=== PATIENT | male | born 1980 | race Caucasian/White ===

== ENCOUNTER 2024-02-12 13:40 | Emergency (ER) | payer OTHER, SELFPAY ==
[2024-02-12 13:49] VITALS: BP 146/76; PULSE 99; RESP 12; TEMP 36.9; O2SAT 99
--- OUTSIDE RECORDS SUMMARY | 2024-02-12 14:13 | XMS_ITS | Encounter Summary ---
Author Organization [facility] [place] [address] Care Team Providers Care Regulatory Law Specialist Name Role Phone Adiel Mooney MD Primary Care Provider [phone] Reason for Visit * Reason Comments Medication Refill Encounter Details Date Type Department Care Team (Late st Contact Info) Description 12/15/2023 Refill [place] [id number] Camilla Nava MD [facility] [place] [address] Primary sclerosing cholangitis; Autoimmune hepatitis Social History Tobacco Use Types Packs/Day Years Used Date Smoking Tobacco: Never Smokeless Tobacco: Never Alcohol Use Standard Drinks/Week Comments No 0 (1 standard drink = 0.6 oz pur e alcohol) [facility] Utilities Answer Date Recorded In the past 12 months has [employer], [employer], oil, or water [employer] threatened to shut off services in your home? No 03/31/2023 Overall Financial Resource Strain (CARDIA) Answe r Date Recorded How hard is it for you to pa y for the very basics like food, housing, medical care, and heating? Not hard at all 03/31/2023 Exercise Vital Sign Answer Date Recorde d On average, how many days pe r week do you engage in moderate to strenuous exercise (like a brisk walk)? 1 day Minutes of Exercise per Session Not on file 03/31/2023 Hunger Vital Sign Answer Date Recorded Within the past 12 months, y ou worried that your food would run out before you got the money to buy more. Never true 03/31/20 23 Within the past 12 months, t he food you bought just didn't last and you didn't have money to get more. Never true 03/31/2023 PRAPARE - Transportation Answer Date Re corded In the past 12 months, has l ack of transportation kept you from medical appointments or from getting medications? No 10/2022 In the past 12 months, has l ack of transportation kept you from meetings, work, or from getting things needed for daily living? No 03/31/2023 Housing Stability Vital Sign Answer Rohit e Recorded In the last 12 months, was t here a time when you were not able to pay the mortgage or rent on time? No 03/31/2023 In the last 12 months, how many places have you lived? 1 03/31/2023 In the last 12 months, was t here a time when you did not have a steady place to sleep or slept in a [facility] (including now)? No 03/31/2023 Sex and Gender Information Value Date Recorded Sex Assigned at Male 03/31/2023 12:56 PM EST Gender Identity Male 03/31/2023 12:56 PM EST Sexual Orientation Straight 03/31/2023 12 :56 PM EST documented as of this encounter Plan of Treatment Upcoming Encounters Date Type Department Care Team (Late st Contact Info) Description 02/13/2024 1:00 PM EDT Clinical Support Primary Care at [address] [phone] 03/12/2024 8:50 AM [place] [address] Camilla Nava MD [facility] [place] [address] 03/20/2024 8:00 AM EST Office Visit Gastroenterology at [place] [phone] Camilla Nava MD [facility] [place] [address] documented as of this encounter Visit Diagnoses Diagnosis Primary sclerosing cholangitis Cholangitis Autoimmune hepatitis documented in this encounter Care Teams Regulatory Law Specialist Relationship Specialty Start Date End Date Adiel Mooney MD [facility] [place] [address] PCP - General General Internal Medicine 09/20/18 documented as of this encounter
--- OUTSIDE RECORDS SUMMARY | 2024-02-12 14:13 | XMS_ITS | Encounter Summary ---
Author Organization [facility] [place] [address] Care Team Providers Care Dancing Teacher Name Role Phone Adiel Mooney MD Primary Care Provider [phone] Reason for Visit * Auth/Cert (Routine) Specialty Diagnoses / Procedures Referred By Contac t Referred To Contact Diagnoses Encounter for screening for malignant neoplasm of colon chromo colonoscopy-high risk per Dr Dowling Procedures PRO COLONOSCOPY, DIAGNOSTIC PRO COLONOSCOPY, BIOPSY PRO COLONOSCOPY, REMV LESN, SNARE COLONOSCOPY, DIAGNOSTIC (WRVU 3.26) Yumi Grant MD [facility] [place] [address] [facility] Referral ID Status Reason Start Date Expiration Date Visits Re quested Visits Authorized [id number] 1 1 Encounter Details Date Type Department Care Team (Late st Contact Info) Description 12/06/2023 1:00 PM EDT - 12/06/2023 2:00 PM EDT [place] [address] Yumi Grant MD [facility] [place] [place] [address] COLONOSCOPY, POLYPECTOMY, REMOVAL LESION BY SNARE (WRVU 4.57) Social History Tobacco Use Types Packs/Day Years Used Date Smoking Tobacco: Never Smokeless Tobacco: Never Alcohol Use Standard Drinks/Week Comments No 0 (1 standard drink = 0.6 oz pur e alcohol) [facility] Utilities Answer Date Recorded In the past 12 months has th e electric, gas, oil, or water company threatened to shut off services in your [...] place to sleep or slept in a [place] facility (including now)? No 03/31/2023 Sex and Gender Information Value Date Recorded Sex Assigned at Male 03/31/2023 12:56 PM EST Gender Identity Male 03/31/2023 12:56 PM EST Sexual Orientation Straight 03/31/2023 12 :56 PM EST documented as of this encounter Last Filed Vital Signs Vital Sign Reading Time Taken Comments Blood Pressure 117/77 12/06/2023 2:00 PM EDT Pulse 66 12/06/2023 2:00 PM EDT Temperature 36.7 ??C (98.1 ??F) 12/06/2023 12:32 PM E DT Respiratory Rate 11 12/06/2023 2:00 PM EDT Oxygen Saturation 98% 12/06/2023 2:00 PM EDT Inhaled Oxygen Concentration - - Weight 86.2 kg (190 lb) 12/06/2023 12:32 PM EDT Height - - Body Mass Index 25.71 03/31/2023 12:56 PM EST documented in this encounter Discharge Instructions * Discharge Instructions* Fide Zacarias RN - 12/06/2023 2:12 PM EDT Colonoscopy: What to Expect at Home Your Recovery Your doctor will talk to you about when you will need your next colonoscopy. Your doctor can help you decide how often you need to be checked. This will depend on the results of your test and your risk for colorectal cancer. After the test, you may be bloated or have gas pains. You may need to pass gas. If a biopsy was done or a polyp was removed, you may have streaks of blood in your stool (feces) for a few days. Problems such as heavy rectal bleeding may not occur until several weeks after the test. This isn't common. But it can happen after polyps are removed. This care sheet gives you a general idea about how long it will take for you to recover. But each person recovers at a different pace. Follow the steps below to get better as quickly as possible. How can you care for yourself at home? Activity Rest when you feel tired. You can do your normal activities when it feels okay to do so. Diet Follow your doctor's directions for eating. Unless your doctor has told you not to, drink plenty of fluids. This helps to replace the fluids that were lost during the colon prep. Do not drink alcohol. Medicines Your doctor will tell you if and when you can restart your medicines. He or she will also give you instructions about taking any new medicines. If you take blood thinners, such as warfarin (Coumadin), clopidogrel (Plavix), or aspirin, be sure to talk to your doctor. He or she will tell you if and when to start taking those medicines again. Make sure that you understand exactly what your doctor wants you to do. If polyps were removed or a biopsy was done during the test, your doctor may tell you not to take aspirin or other anti-inflammatory medicines for a few days. These include ibuprofen (Advil, Motrin) and naproxen (Aleve). Other instructions For your safety, do not drive or operate machinery until the medicine wears off and you can think clearly. Your doctor may tell you not to drive or operate machinery until the day after your test. Do not sign legal documents or make major decisions until the medicine wears off and you can think clearly. The anesthesia can make it hard for you to fully understand what you are agreeing to. Additional Information for Sedation Patients For patients who received sedation: You may have received medications before and/or during your procedure which effects your judgement and reaction time. Do not drive, operate machinery, drink alcoholic beverages or make important decisions for 24 hours. Be careful on stairs as you may be unsteady on your feet. You may eat a regular diet as tolerated. Do not smoke if you are alone. IV site: Slight redness or tenderness is normal, you can use a warm compress if you would like. If tenderness and/or redness increase or if foul drainage occurs, please contact your Doctor. Please call [phone] before 8pm Mon-Fri with problems, questions or concerns. If you call after 8pm or on weekends, call the Hospital at [phone] and ask to speak to the Field Crop Farm Worker supervisor irrigation and the embossing press operator apprentice will contact that person for you. When should you call for help? Call [phone] anytime you think you may need emergency care. For example, call if: You passed out (lost consciousness). You pass maroon or bloody stools. You have trouble breathing. Call your doctor now or seek immediate medical care if: You have pain that does not get better after you take pain medicine. You are sick to your stomach or cannot drink fluids. You have new or worse belly pain. You have blood in your stools. You have a fever. You cannot pass stools or gas. Watch closely for changes in your health, and be sure to contact your doctor if you have any problems. Where can you learn more? [facility] View your After Visit Summary and more online at [email or web address] If you would like to provide feedback about your hospital experience, please call the Office of Patient and Family Relations at . If you have received this After Visit Summary in error, please immediately return it in person to the department, or notify the [facility] Privacy Office by calling toll free at between the hours of 8AM and 5PM to arrange for our retrieval of the documents at no cost to you. Content Version: 12.2 ?? [id number] [employer]. Care instructions adapted under license by [facility]. If you have questions about a medical condition or this instruction, always ask your healthcare professional. [employer] disclaims any warranty or liability for your use of this information. documented in this encounter Medications at Time of Discharge Medication Sig Dispensed Refills Start Date End Date folic acid (Vitamin B9) 1 mg tabletIndications:Ulcer ative colitis without complications, unspecified location TAKE 1 TABLET BY MOUTH EVERY DAY 90 tablet 3 07/27/2023 mesalamine (Shaila) 1.[address] tabletIndications:Ulcer ative colitis without complications, unspecified location TAKE 2 TABLETS BY MOUTH EVERY DAY 180 tablet 3 07/27/2023 calcium carbonate/vitamin D3 (CALCIUM 600 WITH VITAMIN D3 ORAL) Take 2 tablets by mouth daily. 1200 calcium and 50mcg D3 daily ondansetron (Zofran) 4 mg Tablet Take 1 tablet by mouth every 8 hours as needed for Nausea. 10 tablet 03/04/2020 azaTHIOprine (Imuran) 50 mg tabletIndications:Autoi mmune hepatitis TAKE 2 TABLETS BY MOUTH EVERY DAY 180 tablet 1 06/20/2023 12/15/2023 ursodioL (Yoli 250) 250 mg tabletIndications:Prima ry sclerosing cholangitis TAKE 2 TABLETS 2 TIMES A DAY BY MOUTH 360 tablet 1 06/20/2023 12/15/2023 documented as of this encounter Progress Notes * Fide Zacarias RN - 12/06/2023 2:46 PM EDT Patient alert and oriented, vital signs stable. Reviewed discharge instructions; patient and verbalized understanding. Copy of instruction sheet with contact numbers for questions/concerns. Painassessment documented. Patient escorted out of department via wheelchair with this RN. * Pina Dawn RN - 11/22/2023 9:14 AM EDT TC with patient to review pre-procedure prep, allergies, medications, and answer pre-procedure questions. Pt is scheduled for a Colonoscopy with IVCS on Dec 05 at 1 PM (arrival time: 12 PM) with Dr. Grant. Chart reviewed: Past Medical History: Cardiac History: N/A Diabetic History N/A CHING : N/A COPD/severe asthma: N/A Any concerns with the ability to lie flat with or without breathing difficulty: No Home Oxygen: No Psychological: N/A Co-morbidities: UC, PSC, liver disease AIH Current height and weight: 6'09 194 lb 3.2 oz BMI: 26.27 BMI > 40 [] IV Drug Abuse: No Alcohol drinks/week: Pt doesn't drink Recommend IVCS or Anesthesia: IVCS Review med instructions for procedure: Yes Anesthesia education: Yes If the patient is unable to self-consent, plan of action: Name of the person who can consent Phone number if person not present on the day of the procedure documented in this encounter H&P Notes * Yumi Grant MD - 12/06/2023 1:08 PM EDT Gastroenterology and Hepatology Pre-Procedure History and Physical Exam Procedure: Colonoscopy: Indication: PSC/AIH and UC - history of focal nodular dysplasia at hep flex 2022 Patient Active Problem List Diagnosis Code Hepatitis, autoimmune K75.4 Ulcerative colitis K51.90 Healthcare maintenance Z00.00 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 ASA 2 - Patient with mild systemic disease with no functional limitations Sedation Plan: moderate (conscious sedation) Risks and benefits of the procedure explained to the patient. Consent signed. documented in this encounter Plan of Treatment Upcoming Encounters Date Type Department Care Team (Late st Contact Info) Description 02/13/2024 1:00 PM EDT Clinical Support Primary Care at [address] [address] 03/12/2024 8:50 AM [place] [address] Camilla Nava MD [facility] [address] 03/20/2024 8:00 AM EST Office [place] [phone] Camilla Nava MD [facility] [address] documented as of this encounter Procedures Procedure Name Priority Date/Time Associated Diagnosis Comments SURGICAL PATHOLOGY Routine 12/06/2023 1: 44 PM EDT Colonoscopy, Remv Lesn, Snare ([id number]) 12/06/2023 1:18 PM EDT chromo colonoscopy-high risk per Dr Dowling COLONOSCOPY Routine 12/06/2023 12:34 PM EDT documented in this encounter Results * Surgical Pathology (12/06/2023 1:44 PM EDT) Case Report Surgical Pathology Report ? Case: [id number] ? Authorizing Provider: ??Yumi Grant MD ? Collected: ? 12/06/2023 1344 ? Ordering Location: ? [place] [facility] [place] Received: ?12/06/2023 1607 ? Pathologist: ? Sienna Silva MD ? Specimens: ?? A) - Colon, Ascending, Polyps Ascending colon 6 mm, 6 mm ? B) - Colon, Hepatic Flexure, polyp hepatic flexure 15 mm ? C) - Colon, Rectosigmoid, targeted rectosigmoid ? 12/08/2023 12:50 PM EDT [facility] Final Diagnosis A. Colon, Ascending, Polyps Ascending colon 6 mm, 6 mm Polypectomy/Polype ctomies: Fragments of sessile serrated polyp/adenoma. B. Colon, Hepatic Flexure, polyp hepatic flexure 15 mm Polypectomy/Polype ctomies: Fragments of sessile serrated polyp/adenoma. C. Colon, Rectosigmoid, targeted rectosigmoid Biopsy: Hyperplastic polyp. CR-PX 12/08/2023 12:50 PM EDT [facility] Clinical Information A. Colon, Ascending, Polyps Ascending colon 6 mm, 6 mm Polyp B. Colon, Hepatic Flexure, polyp hepatic flexure 15 mm Polyp C. Colon, Rectosigmoid, targeted rectosigmoid Rule out dysplasia 12/08/2023 12:50 PM EDT [facility] Gross Description A. Colon, Ascending, Polyps Ascending colon 6 mm, 6 mm. Labeled/Fixative: Polyps descending colon 6 mm, formalin. Quantity/Size: Two, 0.4 and 0.5 cm. Tissue Description: Soft, swenson-pink tissues. Sections/Processin g: Submitted in toto in 1 cassette labeled A1. B. Colon, Hepatic Flexure, polyp hepatic flexure 15 mm. Labeled/Fixative: Polyp hepatic flexure 15 mm, formalin. Quantity/Size: Five, ranging from 0.2 to 1.4 cm. Tissue Description: Soft, swenson-pink tissues. Sections/Processin g: Submitted in toto in 1 cassette labeled B1. C. Colon, Rectosigmoid, targeted rectosigmoid. Labeled/Fixative: Targeted rectosigmoid, formalin. Quantity/Size: Single, 0.3 cm. Tissue Description: Soft, swenson-pink tissue. Sections/Processin g: Submitted in toto in 1 cassette labeled C1. 12/08/2023 12:50 PM EDT [facility] Result Note Routine 12/08/2023 12:50 PM [facility] Tissue ASCENDING COLON STRUCTURE / Unknown 12/06/2023 1:44 PM EDT 12/06/2023 4:07 PM EDT Comment:Pre-op diagnosis: chromo colonoscopy-high risk per Dr Dowling Tissue specimen (specimen) (Colon, Hepatic Flexure) 12/06/2023 1:51 PM EDT 12/06/2023 4:07 PM EDT Comment:Pre-op diagnosis: chromo colonoscopy-high risk per Dr Dowling Tissue specimen (specimen) RECTOSIGMOID STRUCTURE / Unknown 12/06/2023 2:07 PM EDT 12/06/2023 4:07 PM EDT Comment:Pre-op diagnosis: chromo colonoscopy-high risk per Dr Dowling L Rodney Grant MD PATHOLOGY/CYTOLOGY Beatris WATERS [facility] [place] [address] * COLONOSCOPY (12/06/2023 12:34 PM EDT) COLONOSCOPY [facility] Endoscopy ___ Procedure Date: 12/06/2023 12:34 PM ? Patient Name: Mahamed Dale ? [facility]: [id number] ? Date of : 1980 ? Age: 43 ? Order #: [id number] ? Instrument Name: [id number] ? ___ Procedure: ? Colonoscopy Indications: ? High risk colon cancer ? 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 Focal ? polypoid low grade dysplasia ? removed on last exam 2022 Patient Profile: ? This is a 43 year old male. 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 is taking azathioprine and ? mesalamine and is asymptomatic. Providers: ? Jenny Grant MD, Angel Redman ? , TAHMINA, Kam Yanes MD: ?Adiel Mooney MD Medicines: ? Midazolam 6 mg IV, Fentanyl 250 ? micrograms IV, Ondansetron 4 mg IV Complications: ? No immediate complications. ___ Procedure: ? Pre-Anesthesia Assessment: ? - Prior to the procedure, a History ? and Physical was performed, and ? patient medications and allergies ? were reviewed. The patient is ? competent. The risks and benefits ? of the procedure and the sedation ? options and risks were discussed ? with the patient. All questions ? were answered and informed consent ? was obtained. Patient ? identification and proposed ? procedure were verified by the ? physician in the pre-procedure area ? in the endoscopy suite. Mental ? Status Examination: alert and ? oriented. Airway Examination: ? normal oropharyngeal airway and ? neck mobility. Respiratory ? Examination: clear to auscultation. ? CV Examination: normal. ASA Grade ? Assessment: I - A normal, healthy ? patient. After reviewing the risks ? and benefits, the patient was ? deemed in satisfactory condition to ? undergo the procedure. The ? anesthesia plan was to use moderate ? sedation / analgesia (conscious ? sedation). Immediately prior to ? administration of medications, the ? patient was re-assessed for ? adequacy to receive sedatives. The ? heart rate, respiratory rate, ? oxygen saturations, blood pressure, ? adequacy of pulmonary ventilation, ? and response to care were monitored ? throughout the procedure. The ? physical status of the patient was ? re-assessed after the procedure. ? The procedure, indications, ? benefits, risks and alternatives ? were explained to the patient. ? Specifically discussed were ? potential complications including, ? but not limited to, bleeding, ? perforation, infection, missing a ? cancer, and adverse medication ? reactions. The patient was placed ? in the left lateral decubitus ? position, and a digital rectal exam ? was performed. The Colonoscope was ? inserted in the anus and under ? direct visualization, advanced to ? the terminal ileum, with ? identification of the appendiceal ? orifice and IC valve. Careful ? inspection was made as the ? colonoscope was withdrawn. The ? colonoscopy was performed without ? difficulty. The patient tolerated ? the procedure well. The quality of ? the bowel preparation was evaluated ? using the BBPS ([place] Bowel ? Preparation Scale) with scores of: ? Right Colon = 3 (entire mucosa seen ? well with no residual staining, ? small fragments of stool or opaque ? liquid), Transverse Colon = 3 ? (entire mucosa seen well with no ? residual staining, small fragments ? of stool or opaque liquid) and Left ? Colon = 3 (entire mucosa seen well ? with no residual staining, small ? fragments of stool or opaque ? liquid). The total BBPS score ? equals 9. The quality of the bowel ? preparation was excellent. Scope ? withdrawal time was 21 minutes. ? Findings: ? The perianal and digital rectal examinations were ? normal. ? The terminal ileum appeared normal. ? Entire colon examined carefully with light ? chromoendoscopy using BLI and also with high ? definition white light. There were no signs of active ? colitis throughout. ? Two flat polyps were found in the ascending colon. ? The polyps were 6 mm in size with a mucoid cap ? typical of a sessile serrated adenoma. These polyps ? were removed completely with a cold snare. Resection ? and retrieval were complete. ? A 15 mm polyp was found in the hepatic flexure. The ? polyp was flat also with a mucoid cap and ? well-defined borders. The polyp was removed with a ? cold snare. Resection and retrieval were complete. ? A 4 mm polyp was found in the recto-sigmoid colon. ? The polyp was sessile with a type 2 pit pattern, ? typical a hyperplastic polyp. Directed biopsies were ? taken with a cold forceps for histology. ? Moderate Sedation: ? Not applicable - See Anesthesia documentation Impression: ?- Ulcerative colitis in remission ? - The examined portion of the ileum ? was normal ? - Two well-demarcated 6 mm polyps ? in the ascending colon and a 15 mm ? polyp at the hepatic flexure, ? removed with a cold snare. Resected ? and retrieved completely. ? - One 4 mm polyp at the ? recto-sigmoid colon. Likely a ? hyperplastic polyp. Biopsied. Recommendation: ?- Await pathology results. ? - Anticipate another exam in 1 year. ? - Follow-up in IBD Clinic. ? Attending Participation: ? I personally performed the entire procedure. ? _ L. Rodney Grant MD 12/06/2023 2:11:44 PM Number of Addenda: 0 Note Initiated On: 12/06/2023 12:34 PM [employer]OVATION 12/06/2023 12:3 4 PM EDT Adiel Mooney MD GENERAL SURGICAL ORD ERABLES [employer]ATION documented in this encounter Visit Diagnoses Not on filedocumented in this encounter Administered Medications Inactive Administered Medications - up to 3 most recent administrations Medication Order MAR Action Action Date Dose Rate Site fentaNYL (pf) (50 mcg/mL) multi-dose injection PRN, Starting on Tue12/06/23 at 1318, Until Tue12/06/23 at 1655, Intra-Operative (Intra-Procedure), Routine Given 12/06/2023 1:30 PM EDT 50 mcg Given 12/06/2023 1:27 PM EDT 50 mcg Given 12/06/2023 1:24 PM EDT 50 mcg lactated ringers infusion 100 mL/hr, Intravenous, CONTINUOUS, Starting on Tue12/06/23 at 1245, Until Tue12/06/23 at 1446, Day of Surgery (Day of Procedure) New Bag 12/06/2023 12:47 PM EDT 100 mL/hr 100 mL/hr midazolam (pf) (Versed) (1 mg/mL) multi-dose injection PRN, Starting on Tue12/06/23 at 1318, Until Tue12/06/23 at 1655, Intra-Operative (Intra-Procedure), Routine Given 12/06/2023 1:30 PM EDT 1 mg Given 12/06/2023 1:27 PM EDT 1 mg Given 12/06/2023 1:24 PM EDT 1 mg ondansetron (pf) (Zofran) (2 mg/mL) injection 4 mg 4 mg, Intravenous, ONCE, 1 dose, On Tue12/06/23 at 1345, Endoscopy (Intra-Procedure) Given 12/06/2023 1:20 PM EDT 4 mg documented in this encounter Active and Recently Administered Medications Times are shown in EDT. Scheduled Medication Order 12/04/2023 12/05/2023 12/06/2023 ondansetron (pf) (Zofran) (2 mg/mL) injection 4 mg (COMPLETED) 4 mg, Intravenous, ONCE, 1 dose, On Tue12/06/23 at 1345, Endoscopy (Intra-Procedure) 1320 (Given - Provid er: Angel Romeo RN)1345 (Due) Continuous Medication Order 12/04/2023 12/05/2023 12/06/2023 lactated ringers infusion (CANCELED) 100 mL/hr, Intravenous, CONTINUOUS, Starting on Tue12/06/23 at 1245, Until Tue12/06/23 at 1446, Day of Surgery (Day of Procedure) 1247 (New Bag - Prov ider: Jamaica Singleton RN) PRN Medication Order 12/04/2023 12/05/2023 12/06/2023 fentaNYL (pf) (50 mcg/mL) multi-dose injection (CANCELED) PRN, Starting on Tue12/06/23 at 1318, Until Tue12/06/23 at 1655, Intra-Operative (Intra-Procedure), Routine 1318 (Given - Provid er: Angel Romeo RN)1321 (Given - Provider: Angel R Romeo, RN)1324 (Given - Provider: Angel Romeo RN)1327 (Given - Provider: Angel Romeo RN)1330 (Given - Provider: Angel Romoe RN) midazolam (pf) (Versed) (1 mg/mL) multi-dose injection (CANCELED) PRN, Starting on Tue12/06/23 at 1318, Until Tue12/06/23 at 1655, Intra-Operative (Intra-Procedure), Routine 1318 (Given - Provid er: Angel Romeo RN)1321 (Given - Provider: Angel Romeo RN)1324 (Given - Provider: Angel Romeo RN)1327 (Given - Provider: Angel Romeo RN)1330 (Given - Provider: Angel Romeo RN) documented in this encounter Care Teams Dancing Teacher Relationship Specialty Start Date End Date Adiel Mooney MD [facility] [place] [address] PCP - General General Internal Medicine 09/20/18 documented as of this encounter
--- OUTSIDE RECORDS SUMMARY | 2024-02-12 14:13 | XMS_ITS | Encounter Summary ---
Author Organization [facility] [place] [address] Care Team Providers Care Sales Effectiveness Manager Name Role Phone Adiel Mooney MD Primary Care Provider [phone] Encounter Details Date Type Department Care Team (Latest Contact Info) Description 01/12/2024 Travel Social History Tobacco Use Types Packs/Day Years Used Date Smoking Tobacco: Never Smokeless Tobacco: Never Alcohol Use Standard Drinks/Week Comments No 0 (1 standard drink = 0.6 oz pur e alcohol) [facility] Utilities Answer Date Recorded In the past 12 months has e electric, gas, oil, or water company [...] place to sleep or slept in a assisted (including now)? No 03/31/2023 Sex and Gender Information Value Date Recorded Sex Assigned at Male 03/31/2023 12:56 PM EST Gender Identity Male 03/31/2023 12:56 PM EST Sexual Orientation Straight 03/31/2023 12 :56 PM EST documented as of this encounter Plan of Treatment Upcoming Encounters Date Type Department Care Team (Late st Contact Info) Description 02/13/2024 1:00 PM EDT Clinical Support Primary Care at [address] [address] 03/12/2024 8:50 AM EST Appointment MRI at [place] [id number] Camilla Nava MD [facility] [place] [address] 03/20/2024 8:00 AM EST Office Visit [place] [phone] Camilla Nava MD [facility] [place] [address] documented as of this encounter Visit Diagnoses Not on filedocumented in this encounter Care Teams Sales Effectiveness Manager Relationship Specialty Start Date End Date Adiel Mooney MD [facility] [place] [address] PCP - General General Internal Medicine 09/20/18 documented as of this encounter
--- OUTSIDE RECORDS SUMMARY | 2024-02-12 14:13 | XMS_ITS | Encounter Summary ---
Author Organization [facility] [place] [address] Care Team Providers Care Feather Trimmer Name Role Phone Adiel Mooney MD Primary Care Provider [phone] Encounter Details Date Type Department Care Team (Late st Contact Info) Description 01/12/2024 10:45 AM EDT Office Visit Dermatology at [facility] [address] [place] [address] Ollie Velasquez MD [facility] [address] [place] [address] [place] (actinic keratosis); Skin tag; Multiple benign nevi; Jimenez angioma; Lentigines Social History Tobacco Use Types Packs/Day Years Used Date Smoking Tobacco: Never Smokeless Tobacco: Never Alcohol Use Standard Drinks/Week Comments No 0 (1 standard drink = 0.6 oz pur e alcohol) [facility] Utilities Answer Date Recorded In the past 12 months has [employer], gas, oil, or water [employer] threatened to shut off services in your [...] place to sleep or slept in a chcf (including now)? No 03/31/2023 Sex and Gender Information Value Date Recorded Sex Assigned at Male 03/31/2023 12:56 PM EST Gender Identity Male 03/31/2023 12:56 PM EST Sexual Orientation Straight 03/31/2023 12 :56 PM EST documented as of this encounter Progress Notes * Lory Briseno, [facility] - 01/12/2024 10:45 AM EDT Images from the original note were not included. DEPARTMENT OF DERMATOLOGY Medical Dermatology Clinic Provider: Ollie Velasquez MD Patient's preferred name Mahamed Preferred contact method for results []Phone [x]myD-H []Letter Detailed phone message OK? Yes Are there any other people with whom we may discuss your care? 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 Patient returns to clinic today for full skin exam. Patient reports: no concerns for today's full skin exam Last visit at Dermatology: 08/12/2022 Last visit with this provider: 08/12/2022 Medications: Reviewed in eD-H Allergies: Reviewed in eD-H Skin Examination: Full skin examination: Patient asked to undress to their comfort level. Verbalized that the provider's preference is that patient remove all clothing and that the provider will not examine areas patient elects to keep covered. Examination of the scalp, hair, head, face, ears, neck, chest, axillae, abdomen, back, buttocks, genitalia, and upper and lower extremities was normal with the exception ofthe findings below. Assessment/Plan: #. Actinic Keratoses - Ill-defined gritty papules on the left sabianism x1. - Explained premalignant potential of these lesions. - Discussed treatment with cryotherapy. Patient elects to proceed with cryotherapy today. - Instructed patient to return to clinic for re-evaluation if lesion(s) does not resolve as expected with this treatment. Procedure: Destruction of lesion(s) with cryotherapy (LN2). Location(s): As noted above. Number: 1 Discussed procedure and expectations, including risks and benefits. Verbal consent obtained. Treated with LN2. There were no complications; Patient tolerated the procedure well. Post-procedure expectations and wound care reviewed. #. Skin Tag - Sessile, flesh-colored papule on the posterior neck. - Discussed benign nature of lesion and provided reassurance. No treatment necessary at this time. #. Benign Nevi - Scattered medium brown, evenly pigmented macules and papules on the trunk and extremities with reassuring pigment pattern on dermoscopy. - Discussed benign nature of lesions and provided reassurance. Will continue to monitor. #. Jimenez Angiomas - Multiple bright red, well-demarcated papules on the trunk and extremities. - Discussed benign nature of lesions and provided reassurance. No treatment necessary at this time. #. Lentigines - Scattered light-brown, evenly pigmented, well-demarcated macules on sun-exposed areas of the trunk and extremities. - No worrisome pigmented lesions. Discussed benign nature of lesions and provided reassurance. Willcontinue to monitor. Other: Sun protection discussed (protective clothing and SPF30+ broad-spectrum sunscreen) RTC: 1 year full skin exam / sooner as needed []Note routed to special education secretary [x]Recall placed in scheduling system []Appointment scheduled at checkout Scribe attestation: ABI Strong has performed the documentation for this encounter in the presence of and acting as a scribe for Ollie Velasquez MD. I performed the above scribed service and agree with the accuracy of the documentation in this encounter. Reviewed and signed by: Ollie Velasquez MD Dermatology [facility] documented in this encounter Plan of Treatment Upcoming Encounters Date Type Department Care Team (Late st Contact Info) Description 02/13/2024 1:00 PM EDT Clinical Support Primary Care at [address] [address] 03/12/2024 8:50 [place] [address] Camilla Nava MD [facility] [place] [address] 03/20/2024 8:00 AM EST [place] [phone] Camilla Nava MD [facility] [place] [address] documented as of this encounter Visit Diagnoses Diagnosis AK (actinic keratosis) Actinic keratosis Skin tag Unspecified hypertrophic and atrophic condition of skin Multiple benign nevi Benign neoplasm of skin, site unspecified Jimenez angioma Nevus, non-neoplastic Lentigines Other dyschromia documented in this encounter Care Teams Feather Trimmer Relationship Specialty Start Date End Date Adiel Mooney MD [facility] [place] [address] PCP - General General Internal Medicine 09/20/18 documented as of this encounter
--- OUTSIDE RECORDS SUMMARY | 2024-02-12 14:13 | XMS_ITS | Clinical Summary ---
Author Organization [facility] [place] [address] Care Team Providers Care Gold Letterer Name Role Phone Adiel Mooney MD Primary Care Provider Allergies Active Allergy Reactions Criticality Noted Date Comments Hymenoptera Allergenic Extract Angioedema High 03/14/2015 Generalized swelling in chest and neck. Never any wheese, sob or throat symtpoms. Mefloquine Rash Low 03/14/2015 Rash occurred while taking sulfa medication and Mefloquine. Unaware of which gave him a reaction. Sulfa (Sulfonamide Antibiotics) Rash Low Medications Medication Sig Dispensed Refills Start Date End Date Status ondansetron (Zofran) 4 mg Tablet Take 1 tablet by mouth every 8 hours as needed for Nausea. 10 tablet 03/04/2020 Active calcium carbonate/vitamin D3 (CALCIUM 600 WITH VITAMIN D3 ORAL) Take 2 tablets by mouth daily. 1200 calcium and 50mcg D3 daily Active folic acid (Vitamin B9) 1 mg tabletIndications:Ulc erative colitis without complications, unspecified location TAKE 1 TABLET BY MOUTH EVERY DAY 90 tablet 3 07/27/2023 Active mesalamine (Shaila) 1.2 gram tabletIndications:Ulc erative colitis without complications, unspecified location TAKE 2 TABLETS BY MOUTH EVERY DAY 180 tablet 3 07/27/2023 Active ursodioL (Yoli 250) 250 mg tabletIndications:Alyssa barbie sclerosing cholangitis TAKE 2 TABLETS BY MOUTH TWICE DAILY 360 tablet 3 12/15/2023 Active azaTHIOprine (Imuran) 50 mg tabletIndications:Aut oimmune hepatitis TAKE 2 TABLETS BY MOUTH EVERY DAY 180 tablet 3 12/15/2023 Active Active Problems Problem Noted Date Diagnosed Date PSC (primary sclerosing cholangitis) 01/17/2019 Healthcare maintenance 09/11/2014 Hepatitis, autoimmune Overview (09/11/2014): Diagnosed in 2001 based on LFTs elevated Ulcerative colitis Overview (09/11/2014): Diagnosed in 1996; On AZT and mesalamine No significant flare-ups since 2000 Encounters Date Type Department Care Team Description 01/12/2024 10:45 AM EDT Office Visit Dermatology at [facility] [address] [place] [address] Ollie Velasquez MD AK (actinic keratosis); Skin tag; Multiple benign nevi; Jimenez angioma; Lentigines 01/12/2024 Travel 12/15/2023 [place] [address] Camilla Nava MD Primary sclerosing cholangitis; Autoimmune hepatitis 12/06/2023 1:00 PM EDT - 12/06/2023 2:00 PM EDT [place] [phone] Yumi Grant MD COLONOSCOPY, POLYPECTOMY, REMOVAL LESION BY SNARE (WRVU 4.57) 12/06/2023 11:59 AM EDT - 12/06/2023 2:54 PM EDT Hospital En[place] [address] Yumi Grant MD Discharge Disposition: Home from Last 3 Months Immunizations Name Administration Dates Next Due Covid-19 Bivalent (Pfizer Co mirnaty) 12yrs+ (0698-7554) 03/17/2022 Covid-19 Monovalent (Moderna Spikevax) 12yrs+ (3989-5201) 02/23/2023,10/08/2021,05/19/2021,12/11,07/31/2020,07/03/2020 Hepatitis B, Unspecified Formulation 02/19/1998, 12/11/1997,10/23/1997 Influenza (Novel [id number]) Injectable 04/06/2009 Influenza PF, Split 01/26/2016, 5,01/27/2015,01/23,03/02/2012 Influenza Quadrivalent, Pres ervative Free 01/21/2023,01/22/2022,01/19/2021,01/20,01/15/2019,03/02/2018,01/24/2017 Influenza Vaccine, Whole 03/14/2014,02/16/2010,1 MMR Vaccine LIVE 12/24/1990,09/23/1980 Menomune MPSV4 (Menomune) 01/23/1999 Pneumococcal 13-Valent Conju gate (Prevnar 13) 09/11/2014 Pneumococcal 23-Valent Polys accharide (Pneumovax 23) 02/05/2020,03/14/2015 Td Adult (Decavac, Tenivac) 03/09/2022 Td Adult (not absorbed) 12/24/2001 Tdap (Adacel, Boostrix) 05/01/2012 Typhoid, VICP 03/14/2015 Family History Medical History Relation Comments Pacemaker Father Parkinsonism Father Inflammatory Bowel Disease Maternal Grandfather Rheumatoid Arthritis Maternal Grandmother Heart Failure Paternal Grandfather Lung Cancer Paternal Grandmother Relation Status Comments Father Alive Maternal Grandfather Maternal Grandmother Mother Alive Paternal Grandfather Paternal Grandmother Social History Tobacco Use Types Packs/Day Years Used Date Smoking Tobacco: Never Smokeless Tobacco: Never Alcohol Use Standard Drinks/Week Comments No 0 (1 standard drink = 0.6 oz pur e alcohol) [facility] Utilities Answer Date Recorded In the past 12 months has [employer], gas, oil, or water [email or web address] threatened to shut off services in your [...] place to sleep or slept in a snf (including now)? No 03/31/2023 Sex and Gender Information Value Date Recorded Sex Assigned at Male 03/31/2023 12:56 PM EST Gender Identity Male 03/31/2023 12:56 PM EST Sexual Orientation Straight 03/31/2023 12 :56 PM EST Last Filed Vital Signs Vital Sign Reading Time Taken Comments Blood Pressure 112/70 12/06/2023 2:40 PM EDT Pulse 76 12/06/2023 2:09 PM EDT Temperature 36.7 ??C (98.1 ??F) 12/06/2023 12:32 PM E DT Respiratory Rate 16 12/06/2023 2:40 PM EDT Oxygen Saturation 95% 12/06/2023 2:40 PM EDT Inhaled Oxygen Concentration - - Weight 86.2 kg (190 lb) 12/06/2023 12:32 PM EDT Height 183.1 cm (6' 0.09) 03/31/2023 12:[address] Body Mass Index 25.71 03/31/2023 12:56 PM EST Plan of Treatment Upcoming Encounters Date Type Department Care Team (Late st Contact Info) Description 02/13/2024 1:00 PM EDT Clinical Support Primary Care at [address] [address] 03/12/2024 8:50 AM [place] [address] Camilla Nava MD [facility] [place] [address] 03/20/2024 8:00 AM EST Office [place] [address] Camilla Nava MD [facility] [place] [address] Health Maintenance Due Date Last Done Comments CT Colonography 1979 FIT DNA 1979 FIT 1980 Sigmoidoscopy 1980 Covid-19 Vaccine (2022-05 4 season) 2023 02/23/2023, 03/17/2022, 10/08/2021, Additional history exists Influenza (Flu) vaccine (1 o f 1 - Influenza standard series) 12/25/2023 01/21/2023, 01/22/2022, 01/19/2021, Additional history exists Colonoscopy 12/05/2024 12/06/2023, 11/23, 10/14/2022, Additional history exists Colorectal Cancer Screening 12/05/2024 Lipid Screening 03/09/2026 03/09/2021, 07/25 (Outside per patient (enter details in comments)), 07/25/2015 Diabetes Screening (HgbA1C o r Glucose) 09/01/2026 09/02/2023, 03/11/2023, 10/08/2022, Additional history exists Tetanus/Diphtheria/Pertussis Vaccines (3 - Td or Tdap) 03/09/2032 03/09/2022, 05/01/2012, 12/24/2001 Sigmoidoscopy (10 year) with FIT yearly 12/05/2033 12/06/2023, 12/06/2023, 10/14/2022, Additional history exists Hepatitis B vaccine (0-59 yrs) Completed 1 , 12/11/1997, 10/23/1997 HIV screen Completed 01/19/2019 Hepatitis C Screening Completed 02/26/2020 Procedures Procedure Name Priority Date/Time Associated Diagnosis Comments SURGICAL PATHOLOGY Routine 12/06/2023 1: 44 PM EDT Colonoscopy, Remv Kirk Schulz ([id number]) 12/06/2023 1:18 PM EDT chromo colonoscopy-high risk per Dr Dowling COLONOSCOPY Routine 12/06/2023 12:34 PM EDT COMPREHENSIVE METABOLIC PANEL Routine 09/02/2023 5:53 PM EDT Primary sclerosing cholangitis HC VENIPUNCTURE Routine 03/09/2021 8:45 AM EST Healthcare maintenance HC HEPATITIS C ANTIBODY Routine 02/26/2020 9:27 AM EST Healthcare maintenance HC VENIPUNCTURE Routine 01/19/2019 5:04 PM EDT Healthcare maintenance from Last 3 Months or Most Recently Relevant to Health Maintenance Results * Surgical Pathology (12/06/2023 1:44 PM EDT) Case Report Surgical Pathology Report ? Case: [id number] ? Authorizing Provider: ??Yumi Grant MD ? Collected: ? 12/06/2023 1344 ? Ordering Location: ? Gastroenterology at [facility] ?? Received: ?12/06/2023 1607 ? Pathologist: ? Sienna Silva MD ? Specimens: ?? A) - Colon, Ascending, Polyps Ascending colon 6 mm, 6 mm ? B) - Colon, Hepatic Flexure, polyp hepatic flexure 15 mm ? C) - Colon, Rectosigmoid, targeted rectosigmoid ? 12/08/2023 12:50 PM EDT [facility] Final Diagnosis A. Colon, Ascending, Polyps Ascending colon 6 mm, 6 mm Polypectomy/Polype ctomies: Fragments of sessile serrated polyp/adenoma. B. Colon, Hepatic Flexure, polyp hepatic flexure 15 mm Polypectomy/Polype ctomies: Fragments of sessile serrated polyp/adenoma. C. Colon, Rectosigmoid, targeted rectosigmoid Biopsy: Hyperplastic polyp. CR-PX 12/08/2023 12:50 PM EDT [facility] Clinical Information A. Colon, Ascending, Polyps Ascending colon 6 mm, 6 mm Polyp B. Colon, Hepatic Flexure, polyp hepatic flexure 15 mm Polyp C. Colon, Rectosigmoid, targeted rectosigmoid Rule out dysplasia 12/08/2023 12:50 PM EDT [facility] Gross Description A. Colon, Ascending, Polyps [...] cassette labeled C1. 12/08/2023 12:50 PM EDT [facility] Result Note Routine 12/08/2023 12:50 PM EDT [facility] Tissue ASCENDING COLON STRUCTURE / Unknown [...] Dr Dowling L Rodney Grant MD PATHOLOGY/CYTOLOGY O RDERABLES [facility] [place] [address] * COLONOSCOPY (12/06/2023 12:34 PM EDT) COLONOSCOPY [facility] Endoscopy ___ Procedure Date: 12/06/2023 12:34 PM ? Patient Name: Mahamed Dale ? Date of : 1980 ? Age: 43 ? Order #: [id number] ? Instrument Name: [id number] ? ___ Procedure: ? Colonoscopy Indications: ? High risk colon cancer ? 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 Focal ? polypoid low grade dysplasia ? removed on last exam 2022 Patient Profile: ? This is a 43 year old male. 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 is taking azathioprine and ? mesalamine and is asymptomatic. Providers: ? L. Rodney Grant MD, Angel Redman ? TAHMINA Romeo, Kam Yanes MD: ?Adiel Mooney MD Medicines: [...] preparation was evaluated ? using the BBPS (Mildred Bowel ? Preparation Scale) with scores of: [...] Mooney MD GENERAL SURGICAL ORD ERABLES [facility] * Comprehensive metabolic panel (non-fasting) (09/02/2023 5:53 PM EDT) Glucose 90 65 - 199 mg/dL [facility] Comment:Diabetes: >=200 mg/d L plus symptoms Blood Urea Nitrogen 12 10 - 20 mg/dL [facility] Creatinine 0.92 0.80 - 1.50 mg/dL [facility] Sodium 140 135 - 145 mmol/L [facility] Potassium 4.0 3.5 - 5.0 mmol/L [facility] Comment: Please note: ??Patients with WBC >100,000 may have falsely elevated Potassium levels. ??For accurate Potassium quantification in these patients send serum separator tube (gold top) for subsequent determinations. ??Contact the Clinical Chemistry Laboratory if there are any questions. Chloride 105 98 - 107 mmol/L [facility] Carbon Dioxide 27 22 - 31 mmol/L [facility] Anion Gap 8 5 - 15 mmol/L [facility] Calcium 9.7 8.5 - 10.5 mg/dL [facility] Protein, Total 7.6 6.1 - 8.0 g/dL [facility] Albumin 4.6 3.2 - 5.2 g/dL [facility] Aspartate Aminotransferase 25 0 - 39 unit/L [facility] Alanine Aminotransferase 37 0 - 55 unit/L [facility] Alkaline Phosphatase 120 40 - 130 unit/L [facility] Bilirubin, Total 0.4 0.2 - 1.3 mg/dL [facility] Est Glomerular Filtration Rate 105 >=60 mL/min/1. 73 m?? [facility] Comment: This patient's estimated GFR was calculated using the 2020 CKD-EPI equation. The estimated GFR can vary from the measured GFR by up to 30% in the absence of rapidly changing kidney function. Assessment of the estimated GFR is not appropriate when creatinine concentrations are rapidly changing. For clinical situations in which a more precise estimate of GFR is necessary, consider alternative methods of GFR estimation such as a 24-hour urine creatinine clearance. Assignment of CKD stage 1-5 for patients with an eGFR near the transition point between stages may be based on clinical assessment of muscle mass and symptoms in addition to eGFR. Blood 09/02/2023 5:53 PM EDT 09/02/2023 6:13 PM EDT Narrative Resulting Agency Comment Spec In Lab Camilla Nava MD CHEMISTRY ORDERABLES [facility] [place] [address] * Lipid Panel (Reflex Direct LDL) (03/09/2021 8:45 AM EST) [facility] Cholesterol, Total 174 mg/dL [facility] Comment: Lower Risk: <200 mg/dL Average Risk: 200-239 mg/dL Higher Risk: >bi=223 mg/dL Triglyceride 67 mg/dL [facility] Comment: Average Risk/Lower Risk: <150 mg/dL Borderline High Risk: 150-199 mg/dL High Risk: 200-499 mg/dL Very High Risk: >pz=508 mg/dL HDL Cholesterol 58 mg/dL [facility] Comment: Males: ?? Higher Risk: <40 mg/dL Females: ?? Higher Risk: <50 mg/dL LDL Cholesterol 103 mg/dL [facility] Comment: Lowest Risk: <100 mg/dL Lower Risk: 100-129 mg/dL Borderline High Risk: 130-159 mg/dL High Risk: 160-189 mg/dL Very High Risk: >bc=444 mg/dL Cholesterol/HDL Ratio 3.0 ratio [facility] Lipid Interpretation See Note [facility] Comment: Lipid management should be guided by a patient? s ASCVD risk, goals and preferences. ACC/AHA Guidelines recommend high intensity statin if clinical ASCVD or LDL greater than or equal to 190 mg/dL. http://[email or web address] [email or web address]/ITZ-ICK-[email or web address] Adults aged 40-75 with LDL 70-189 mg/dL should have their 10 year ASCVD risk estimated with the ACC/AHA ASCVD risk caul dresser http://tools.acc.org/ISZKF-Ymqf-Yejeozyyp/ Statin should be discussed if risk greater than or equal to 7.5% in non-diabetics. With diabetes, moderate intensity statin is recommended if risk less than 7.5%, high intensity if risk greater than or equal to 7.5%. Annual lipid monitoring on statins is not necessary. Evaluate secondary causes of Triglycerides greater than 500 mg/dL or LDL greater than 190 mg/dL: See table 6 of ACC/AHA Guideline. Lifestyle modification is a critical component of ASCVD risk reduction. Blood 03/09/2021 8:45 AM EST 03/09/2021 9:06 AM EST Narrative Resulting Agency Comment Spec In Lab Adiel Mooney MD CHEMISTRY ORDERABLES Performing Organization Address [facility] Co de Phone Number [facility] [place] [address] * Hepatitis C Antibody (02/26/2020 9:27 AM EST) Hepatitis C Antibody Negative Negative [facility] Blood specimen (specimen) 02/26/2020 9:27 AM EST 02/26/2020 9:54 AM EST Narrative Resulting Agency Comment Spec In Lab Adiel Mooney MD CHEMISTRY ORDERABLES Performing Organization Address [facility] Co de Phone Number [facility] [place] [address] * HIV Screen, 4th Generation ([facility]/CGP/APD) (01/19/2019 5:04 PM EDT) HIV Ab/Ag Screen Negative Negative [facility] Comment: This 4th Generation HIV test screens for the presence of the HIV-1 p24 antigen as well as antibodies reactive against HIV-1 and HIV-2. A negative screen does not rule out an acute HIV infection. If acute HIV infection is suspected, testing should be repeated in 2 - 3 weeks or HIV nucleic acid testing performed. Blood specimen (specimen) 01/19/2019 5:04 PM EDT 01/19/2019 7:29 PM EDT Narrative Resulting Agency Comment Spec In Lab Adiel Mooney MD CHEMISTRY ORDERABLES [facility] [place] [address] from Last 3 Months or Most Recently Relevant to Health Maintenance Advance Directives * Full Code (Latest Code Status on File) Date Activated Date Inactivated Comments 10/13/2016 10:34 AM 10/13/2016 1:16 PM Question Answer Comments Does patient have capacity to make decision: Yes Care Teams Gold Letterer Relationship Specialty Start Date End Date Adiel Mooney MD [facility] [place] [address] PCP - General General Internal Medicine 09/20/18
--- OUTSIDE RECORDS SUMMARY | 2024-02-12 14:14 | XMS_ITS | Encounter Summary ---
Author Organization [facility] [place] [address] Care Team Providers Care Pack Out Operator Name Role Phone Adiel Mooney MD Primary Care Provider [phone] Encounter Details Date Type Department Care Team (Latest Contact Info) Description 03/31/2023 Travel Social History Tobacco Use Types Packs/Day Years Used Date Smoking Tobacco: Never Smokeless Tobacco: Never Alcohol Use Standard Drinks/Week Comments No 0 (1 standard drink = 0.6 oz pur e alcohol) [facility] Utilities Answer Date Recorded In the [...] place to sleep or slept in a long term (including now)? No 03/31/2023 Sex and Gender Information Value Date Recorded Sex Assigned at Male 03/31/2023 12:56 PM EST Gender Identity Male 03/31/2023 12:56 PM EST Sexual Orientation Straight 03/31/2023 12 :56 PM EST documented as of this encounter Plan of Treatment Upcoming Encounters Date Type Department Care Team (Late st Contact Info) Description 02/13/2024 1:00 PM EDT Clinical Support Primary Care at [address] [phone] 03/12/2024 8:50 AM EST Appointment MRI at [place] [phone] Camilla Nava MD [facility] [place] [address] 03/20/2024 8:00 AM EST Office [place] [phone] Camilla Nava MD [facility] [place] [address] documented as of this encounter Visit Diagnoses Not on filedocumented in this encounter Care Teams Pack Out Operator Relationship Specialty Start Date End Date Adiel Mooney MD [facility] [place] [address] PCP - General General Internal Medicine 09/20/18 documented as of this encounter
--- OUTSIDE RECORDS SUMMARY | 2024-02-12 14:14 | XMS_ITS | Encounter Summary ---
Author Organization Formerly [facility] [place] [address] Care Team Providers Care Clinical Pharmacy Coordinator Name Role Phone Adiel Mooney MD Primary Care Provider [phone] Reason for Visit * Reason Comments Medication Refill Encounter Details Date Type Department Care Team (Late st Contact Info) Description 06/18/2023 [place]ill [place] [phone] Camilla Nava MD [facility] [place] [address] Autoimmune hepatitis; Primary sclerosing cholangitis Social History Tobacco Use Types Packs/Day Years Used Date Smoking Tobacco: Never Smokeless Tobacco: Never Alcohol Use Standard Drinks/Week Comments No 0 (1 standard drink = 0.6 oz pur e alcohol) [facility] Utilities Answer Date Recorded In the past 12 months has [employer], [employer], oil, or water [employer] threatened to shut off services in your [...] place to sleep or slept in a longterm (including now)? No 03/31/2023 Sex and Gender Information Value Date Recorded Sex Assigned at Male 03/31/2023 12:56 PM EST Gender Identity Male 03/31/2023 12:56 PM EST Sexual Orientation Straight 03/31/2023 12 :56 PM EST documented as of this encounter Plan of Treatment Upcoming Encounters Date Type Department Care Team (Late st Contact Info) Description 02/13/2024 1:00 PM EDT Clinical Support Primary Care at [address] [address] 03/12/2024 8:50 AM [place] [address] Camilla Nava MD [facility] [place] [address] 03/20/2024 8:00 AM EST Office Visit Gastroenterology at [place] [phone] Camilla Nava MD [facility] [place] [address] documented as of this encounter Visit Diagnoses Diagnosis Autoimmune hepatitis Primary sclerosing cholangitis Cholangitis documented in this encounter Care Teams Clinical Pharmacy Coordinator Relationship Specialty Start Date End Date Adiel Mooney MD [facility] [place] [address] PCP - General General Internal Medicine 09/20/18 documented as of this encounter
--- OUTSIDE RECORDS SUMMARY | 2024-02-12 14:14 | XMS_ITS | Encounter Summary ---
Author Organization [facility] [place] [address] Care Team Providers Care Lcpc Name Role Phone Adiel Mooney MD Primary Care Provider [phone] Reason for Visit * Reason Comments Medication Refill Encounter Details Date Type Department Care Team (Late st Contact Info) Description 06/19/2022 [place] [phone] Camilla Nava MD [facility] [place] [address] Autoimmune hepatitis; Primary sclerosing cholangitis Social History Tobacco Use Types Packs/Day Years Used Date Smoking Tobacco: Never Smokeless Tobacco: Never Alcohol Use Standard Drinks/Week Comments No 0 (1 standard drink = 0.6 oz pur e alcohol) Overall Financial Resource Strain (CARDIA) Answe r Date Recorded How hard is it for you to pa y for the very basics like food, housing, medical care, and heating? Not hard at all 03/09/2022 Exercise Vital Sign Answer Date Recorde d On average, how many days pe r week do you engage in moderate to strenuous exercise (like a brisk walk)? 1 day 03/09/2022 On average, how many minutes do you engage in exercise at this level? 90 min 03/09/2022 Hunger Vital Sign Answer Date Recorded Within the past 12 months, y ou worried that your food would run out before you got the money to buy more. Never true 03/09/20 22 Within the past 12 months, t he food you bought just didn't last and you didn't have money to get more. Never true 03/09/2022 PRAPARE - Transportation Answer Date Re corded In the past 12 months, has l ack of transportation kept you from medical appointments or from getting medications? No 02/23 In the past 12 months, has l ack of transportation kept you from meetings, work, or from getting things needed for daily living? No 03/09/2022 Housing Stability Vital Sign Answer Rohit e Recorded In the last 12 months, was t here a time when you were not able to pay the mortgage or rent on time? No 03/09/2022 In the last 12 months, how many places have you lived? 1 03/09/2022 In the last 12 months, was t here a time when you did not have a steady place to sleep or slept in a half-way (including now)? No 03/09/2022 Sex and Gender Information Value Date Recorded Sex Assigned at Male 03/31/2023 12:56 PM EST Gender Identity Male 03/31/2023 12:56 PM EST Sexual Orientation Straight 03/31/2023 12 :56 PM EST documented as of this encounter Plan of Treatment Upcoming Encounters Date Type Department Care Team (Late st Contact Info) Description 02/13/2024 1:00 PM EDT Clinical Support Primary Care at [address] [address] 03/12/2024 8:50 AM [place] [phone] Camilla Nava MD [facility] [place] [address] 03/20/2024 8:00 AM EST Office [place] [phone] Camilla Nava MD [facility] [place] [address] documented as of this encounter Visit Diagnoses Diagnosis Autoimmune hepatitis Primary sclerosing cholangitis Cholangitis documented in this encounter Care Teams Lcpc Relationship Specialty Start Date End Date Adiel Mooney MD [facility] GENERAL [place] [address] PCP - General General Internal Medicine 09/20/18 documented as of this encounter
--- OUTSIDE RECORDS SUMMARY | 2024-02-12 14:14 | XMS_ITS | Encounter Summary ---
Author Organization [facility] Anjelica mcduffie [place] [id number] Care Team Providers Care Mortician Investigator Name Role Phone Adiel Mooney MD Primary Care Provider Reason for Referral * Diagnostic Test (Routine) - Closed Specialty Diagnoses / Procedures Referred By Contac t Referred To Contact Radiology Diagnoses Primary sclerosing cholangitis Procedures MRI Cholangiopancreatography Camilla French MD [facility] [place] [address] [place] [address] Referral ID Status Reason Start Date Expiration Date V isits Requested Visits Authorized [id number] Closed Specialty Service Requested 01/22/2023 07/22/2024 1 1 Reason for Visit * Diagnostic Test (Routine) - Closed Specialty Diagnoses / Procedures Referred By Contac t Referred To Contact Radiology Diagnoses Primary sclerosing cholangitis Procedures MRI Cholangiopancreatography Camilla Swann MD [facility] [place] [address] [place] [address] Referral ID Status Reason Start Date Expiration Date V isits Requested Visits Authorized [id number] Closed Specialty Service Requested 01/22/2023 07/22/2024 1 1 Encounter Details Date Type Department Care Team (Latest Contact Info) Description 03/21/2023 8:18 AM EST - 03/21/2023 11:59 PM EST Hospital Encounter MRI at [facility] [place] [address] Camilla Nava MD [facility] [place] [address] Primary sclerosing cholangitis Discharge Disposition: Home Social History Tobacco Use Types Packs/Day Years [...] place to sleep or slept in a penitentiary (including now)? No 03/09/2022 Sex and Gender Information Value Date Recorded Sex Assigned at Male 03/31/2023 12:56 PM EST Gender Identity Male 03/31/2023 12:56 PM EST Sexual Orientation Straight 03/31/2023 12 :56 PM EST documented as of this encounter Medications at Time of Discharge Medication Sig Dispensed Refills Start Date End Date ondansetron (Zofran) 4 mg Tablet Take 1 tablet by mouth every 8 hours as needed for Nausea. 10 tablet 03/04/2020 folic acid (Vitamin B9) 1 mg tabletIndications:Ulcer ative colitis without complications, unspecified location TAKE 1 TABLET BY MOUTH EVERY DAY 90 tablet 1 02/07/2023 07/27/2023 mesalamine (Shaila) 1.2 gram tabletIndications:Ulcer ative colitis without complications, unspecified location TAKE 2 TABLETS BY MOUTH EVERY DAY 180 tablet 1 02/07/2023 07/27/2023 ursodioL (Yoli 250) 250 mg tabletIndications:Prima ry sclerosing cholangitis TAKE 2 TABLETS 2 TIMES A DAY BY MOUTH 360 tablet 1 12/22/2022 06/20/2023 azaTHIOprine (Imuran) 50 mg tabletIndications:Autoi mmune hepatitis TAKE 2 TABLETS BY MOUTH DAILY 180 tablet 1 12/22/2022 06/20/2023 calcium-vitamin D 500 mg-5 mcg (200 unit) Tablet Take 1 tablet by mouth daily. 03/31/2023 documented as of this encounter Plan of Treatment Upcoming Encounters Date Type Department Care Team (Late st Contact Info) Description 02/13/2024 1:00 PM EDT Clinical Support Primary Care at [address] [phone] 03/12/2024 8:50 AM [place] [address] Camilla Nava MD [facility] [place] [address] 03/20/2024 8:00 AM EST Office Visit [place] [address] Camilla Nava MD [facility] [place] [place] [address] documented as of this encounter Procedures Procedure Name Priority Date/Time Associated Diagnosis Comments MRI CHOLANGIOPANCREATOGRAPHY WWO CONTRAST Routine 03/21/2023 9:59 AM EST Primary sclerosing cholangitis documented in this encounter Results * MRI Cholangiopancreatography wwo Contrast (03/21/2023 9:59 AM EST) Anatomical Region Laterality Modality Magnetic Resonan ce Impressions 03/21/2023 10:28 AM EST 1. ??Stable findings consistent with primary sclerosing cholangitis. 2. ??No evidence of hepatobiliary mass. Thank you for letting us participate in the care of this patient. ??If you are a health care provider and have any questions regarding this report, please contact the number below. ??For patients who have questions please contact the health critical care clinical nurse specialist that requested your imaging first. ? Narrative 03/21/2023 10:28 AM EST EXAMINATION: MRI CHOLANGIOPANCREATOGRAPHY WWO CONTRAST ? CLINICAL HISTORY: Primary sclerosing cholangitis, ulcerative colitis, assess for progression, screen for cholangiocarcinoma TECHNIQUE: MRI of the abdomen prior to and following the intravenous administration of 18mL Dotarem. Noncontrast MRCP was performed. 3D MIPS were created. COMPARISON: MR from 04/02/2022 FINDINGS: MRCP Bile ducts: No significant change in scattered areas of intrahepatic biliary ductal stenosis and mild proximal dilation. The common bile duct is normal in caliber and tapers smoothly at the ampulla. No intraluminal filling defects. The common bile duct is normal caliber. No intraluminal filling defects. Gallbladder: No filling defects or wall thickening. Pancreatic duct: Normal caliber and configuration. MRI Lower chest: No pleural or pericardial effusion. Liver: Normal size and signal intensity. No lesions. Pancreas: Normal. Spleen: Normal. Adrenals: Normal. Kidneys: Normal. Vasculature: No aneurysm. Lymph nodes: No enlarged lymph nodes. Bowel: Nondilated, no inflammatory changes. Peritoneum and mesentery: No ascites or loculated fluid collection. Marrow Signal: Normal. Procedure Note Yaakov Galdamez MD - 03/21/2023 EXAMINATION: MRI CHOLANGIOPANCREATOGRAPHY WWO CONTRAST CLINICAL HISTORY: Primary sclerosing cholangitis, ulcerative colitis,assess for progression, screen for cholangiocarcinoma TECHNIQUE: MRI of the abdomen prior to and following the intravenous administration of 18mL Dotarem. Noncontrast MRCP was performed. 3D MIPSwere created. COMPARISON: MR from 04/02/2022 FINDINGS: MRCP Bile ducts: No significant change in scattered areas of intrahepaticbiliary ductal stenosis and mild proximal dilation. The common bile duct is normalin caliber and tapers smoothly at the ampulla. No intraluminal fillingdefects. The common bile duct is normal caliber. No intraluminal filling defects. Gallbladder: No filling defects or wall thickening. Pancreatic duct: Normal caliber and configuration. MRI Lower chest: No pleural or pericardial effusion. Liver: Normal size and signal intensity. No lesions. Pancreas: Normal. Spleen: Normal. Adrenals: Normal. Kidneys: Normal. Vasculature: No aneurysm. Lymph nodes: No enlarged lymph nodes. Bowel: Nondilated, no inflammatory changes. Peritoneum and mesentery: No ascites or loculated fluid collection. Marrow Signal: Normal. IMPRESSION 1. Stable findings consistent with primary sclerosing cholangitis. 2. No evidence of hepatobiliary mass. Thank you for letting us participate in the care of this patient. If youare a health care provider and have any questions regarding this report,please contact the number below. For patients who have questions please contactthe health critical care clinical nurse specialist that requested your imaging first. Electronically signed by: Yaakov Galdamez MD, [facility]([phone]), at 03/21/2023 10:28 AM Camilla Nava MD IMG MRI ORDERABLES documented in this encounter Visit Diagnoses Diagnosis Primary sclerosing cholangitis Cholangitis documented in this encounter Administered Medications Inactive Administered Medications - up to 3 most recent administrations Medication Order MAR Action Action Date Dose Rate Site gadoterate meglumine (Dotarem) (0.5 mMol/mL) injection solution 0-100 mL 0-100 mL, Intravenous, ONCE PRN, 1 dose, Starting on Tue03/21/23 at 0948, Until Tue03/21/23 at 0948, Per Protocol, Radiology Contrast, Routine Given 03/21/2023 9:48 AM EST 18 mLs documented in this encounter Care Teams Mortician Investigator Relationship Specialty Start Date End Date Adiel Mooney MD [facility] [place] [address] PCP - General General Internal Medicine 09/20/18 documented as of this encounter
--- OUTSIDE RECORDS SUMMARY | 2024-02-12 14:14 | XMS_ITS | Encounter Summary ---
Author Organization [facility] Anjelica [facility] [place] [address] Care Team Providers Care Human Resource Adviser Name Role Phone Adiel Mooney MD Primary Care Provider [phone] Reason for Referral * Diagnostic Test (Routine) - New Request Specialty Diagnoses / Procedures Referred By Contac t Referred To Contact Radiology Diagnoses Other ulcerative colitis without complication Procedures MRI Cholangiopancreatography wwo Contrast Laz Longoria MD [facility] [place] [address] [place] [address] Referral ID Status Reason Start Date Expiration Date Visits Requested Visits Authorized [id number] New Request Specialty Service Requested 3 09/20/2024 1 1 Encounter Details Date Type Department Care Team (Late st Contact Info) Description 03/23/2023 3:00 PM EST Office [place] [address] Laz Longoria MD [facility] [place] [address] Other ulcerative colitis without complication; Primary sclerosing cholangitis Social History Tobacco Use [...] place to sleep or slept in a care home (including now)? No 03/09/2022 Sex and Gender Information Value Date Recorded Sex Assigned at Male 03/31/2023 12:56 PM EST Gender Identity Male 03/31/2023 12:56 PM EST Sexual Orientation Straight 03/31/2023 12 :56 PM EST documented as of this encounter Last Filed Vital Signs Vital Sign Reading Time Taken Comments Blood Pressure 135/82 03/23/2023 2:56 PM EST Pulse 78 03/23/2023 2:56 PM EST Temperature - - Respiratory Rate - - Oxygen Saturation - - Inhaled Oxygen Concentration - - Weight 89.1 kg (196 lb 6.4 oz) 03/23/2023 2:56 P M EST Height 182.9 cm (6') 03/23/2023 2:56 PM EST Body Mass Index 26.64 03/23/2023 2:56 PM EST documented in this encounter Progress Notes * Laz Longoria MD - 03/23/2023 3:00 PM EST Gastoenterology & Hepatology Follow Up Note Provider: LAZ LONGORIA MD Gender: male : 1980 Referring Physician/Primary Care Physician: Adiel Mooney MD Problem List: Autoimmune hepatitis/PSC overlap diagnosed 2001 with transaminases 400-500 range, ASMA 1:640; no symptoms Liver biopsy c/w/ AIH 2001 with some 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 but mainly findings of AIH on low dose azathioprine (50mg) since diagnosis after initial course of prednisone LFT's remained normal since initial flare until July of 2010 when there was a small rise treated with increase in azathioprine to 75mg successfully Imuran decreased to 50mg/day Feb 24, 2012, LFT's jada and azathioprine resumed at 75mg/day 05/2012 with resolution of lft's LFT rise 08/2013, treated with entocort 9mg/day and increased azathioprine to 100mg; it took about 9months for lft's to normalize MRCP essentially normal on 02/2014 Fibroscan 09/24/14: 4.3 Kpascals; 12% IQR; 71% validity c/w F0 fibrosis Fibroscan 11/24/15: 6.2Kpascal; 24% IQR; 92% validity c/w F1 fibrosis Fibroscan 11/16/16 5.9 Kpascal; 7% IQR; 100% validity c/w F0-F1 Fibroscan 12/06/17: 5.2 Kpascal; 8% IQR: F0 fibrosis Fibroscan 03/14/20: 6.9 Kp; 25% IQR; F0 fibrosis Fibroscan 03/16/22 7.3 Kp; 19% IQR, F0-1 fibrosis Liver biopsy September 2016: DIAGNOSIS Liver tissue, biopsy: - The biopsy shows patchy portal and focal lobular foci of chronic inflammation. Bile ducts show moderate damage. There is ductular reaction, but no evidence of ductopenia. Trichrome stain highlights mild to moderate portal fibrosis with periductal concentric accentuarion in some portal tracts. Focal bridging fibrosis cannot be excluded. In comparison to S-, there is increase in portal inflammation and fibrosis. 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 MRCP 01/2016 possible PSC Ulcerative colitis quiescent but was likely pancolitis diagnosed 1994, 1 major flare 2000 treated with prednisone maintained on asacol 1600mg bid folic acid aza (for AIH) Last colonoscopy 08/2021- Dr. Dowling- no dysplasia, hyperplastic polyps Osteopenia on bone density 04/2021- on calcium/vit D; repeat in 2025 Medications: Outpatient Medications Marked as Taking for the 03/23/23 encounter (Office Visit) with Laz Longoria MD Medication Sig Dispense Refill folic acid (Vitamin B9) 1 mg tablet TAKE 1 TABLET BY MOUTH EVERY DAY [address] (Lialda) 1.[address] tablet TAKE 2 TABLETS BY MOUTH EVERY DAY 180 tablet 1 ursodioL (Yoli 250) 250 mg tablet TAKE 2 TABLETS 2 TIMES A DAY BY MOUTH 360 tablet 1 azaTHIOprine (Imuran) 50 mg tablet TAKE 2 TABLETS BY MOUTH DAILY 180 tablet 1 calcium-vitamin D 500 mg-5 mcg (200 unit) Tablet Take 1 tablet by mouth daily. ondansetron (Zofran) 4 mg Tablet Take 1 tablet by mouth every 8 hours as needed for Nausea. 10 tablet 0 ADR/ALLERGIES: Allergies Allergen Reactions Hymenoptera Allergenic Extract Angioedema Generalized swelling in chest and neck. Never any wheese, sob or throat symtpoms. Mefloquine Rash Rash occurred while taking sulfa medication and Mefloquine. Unaware of which gave him a reaction. Sulfa (Sulfonamide Antibiotics) Rash Interval History: Mahamed Dale is a 42 y.o. male who presents for follow up of autoimmune hepatitis/PSC overlap syndrome. Bowels are unchanged. BM once a day or less, no blood. Soft stools. Weight is stable. VITAL SIGNS BP 135/82 (BP Location (NBP): Left arm, Patient Position: Sitting, BP Cuff Sizes: Adult (25-34 cm)) Pulse 78 Ht 182.9 cm (6') Wt 89.1 kg (196 lb 6.4 oz) BMI 26.64 kg/m?? Physical Exam: appears well, in no distress. Lab Results Component Value Date NA 141 03/11/2023 K 4.1 03/11/2023 CL 103 03/11/2023 CO2 26 03/11/2023 BUN 14 03/11/2023 CREATININE 0.95 03/11/2023 GLUCOSE 90 03/11/2023 GLUCFASTING 106 (H) 01/19/2019 CALCIUM 9.6 03/11/2023 ESTGFR 102 03/11/2023 Lab Results Component Value Date ALT 27 03/11/2023 AST 23 03/11/2023 GGT 35 09/13/2019 ALKPHOS 115 03/11/2023 BILITOT 0.4 03/11/2023 BILIDIR 0.1 09/13/2019 ALBUMIN 4.7 03/11/2023 PROT 7.6 03/11/2023 Lab Results Component Value Date WBC 7.5 03/11/2023 HGB 15.7 03/11/2023 HCT 44.1 03/11/2023 MCV 90.9 03/11/2023 PLATELET 256 03/11/2023 Assessment/Plan: 42 y.o. male with UC and autoimmune hepatitis with elevations in alkaline phosphatase suspicious for PSC overlap with AIH. Liver biopsy, while subtle also confirmed this suspicion. MRCP is also consistent. We should continue treatment for the AIH with azathioprine. The question of using ursodiol for PSC comes up. There is data that patients whose alkaline phosphatase responds to ursodiol seem to have better outcomes. We discussed the data that high dose ursodiol is associated with higher mortality. Since going on this his LFT's have remained normal. UC is in remission- for now continue current therapy; colonoscopy in July 2021 for follow up. Plan: -Continue mesalamine and azathioprine for UC -Colonoscopy in September 2023 for follow up low grade dysplasia.- needs miralax prep. I also gave him zofran for nausea during prep. -Cholangio-carcinoma screening is controversial. We will get yearly MRI/MRCP. -Ursodiol 500mg bid for PSC, lft's are normal. -AIH- azathioprine 100mg/day. Will check metabolites. -GIF in one year with MRI/MRCP prior, labs q 6 months; fibroscan in one year. Time spent with patient: 25 minutes Time in addition spent reviewing documents, documenting visit: Minutes 10 min Total visit time: 35 minutes Laz Longoria MD Section of Gastroenterology & Hepatology [address] [place] [phone] Copy: Adiel Mooney MD documented in this encounter Plan of Treatment Upcoming Encounters Date Type Department Care Team (Late st Contact Info) Description 02/13/2024 1:00 PM EDT Clinical Support Primary Care at [address] [address] 03/12/2024 8:50 AM [place] [address] Laz Longoria MD [facility] [place] [address] 03/20/2024 8:00 AM EST Office [place] [address] Laz Longoria MD [facility] [place] [address] Scheduled Orders Name Type Priority Associated Diagnoses Orde r Schedule MRI Cholangiopancreatography wwo Contrast Imaging Routine Other ulcerative colitis without complication Expected: 03/23/2024, Expires: 09/22/2024 documented as of this encounter Procedures Procedure Name Priority Date/Time Associated Diagnosis Comments THIOPURINE METABOLITES Routine 03/23/2023 4:02 PM EST Other ulcerative colitis without complication documented in this encounter Results * Thiopurine Metabolites (03/23/2023 4:02 PM EST) Thiopurine Metabolites (PROMETHEUS) See Scan Report [facility] Blood 03/23/2023 4:02 PM EST 03/28/2023 11:10 AM EST Narrative Resulting Agency Comment Spec In Lab Laz Longoria MD LAB SEND OUT ORDERAB [facility] [place] [address] documented in this encounter Visit Diagnoses Diagnosis Other ulcerative colitis without complication Primary sclerosing cholangitis Cholangitis documented in this encounter Care Teams Human Resource Adviser Relationship Specialty Start Date End Date Adiel Mooney MD [facility] GENERAL [place] [address] PCP - General General Internal Medicine 09/20/18 documented as of this encounter
--- OUTSIDE RECORDS SUMMARY | 2024-02-12 14:14 | XMS_ITS | Encounter Summary ---
Author Organization [facility] [place] [address] Care Team Providers Care Powderman Name Role Phone Adiel Mooney MD Primary Care Provider [phone] Reason for Visit * Auth/Cert (Routine) Specialty Diagnoses / Procedures Referred By Contac t Referred To Contact Diagnoses - Repeat colonoscopy in 1 year with h/o dysplasia and PSC Procedures PRO COLONOSCOPY, DIAGNOSTIC COLONOSCOPY,SCREENING (WRVU 3.26) Micah Dowling MD [facility] [place] [address] [facility] Referral ID Status Reason Start Date Expiration Date Visits Re quested Visits Authorized [id number] 1 1 Encounter Details Date Type Department Care Team (Late st Contact Info) Description 10/14/2022 7:30 AM EDT - 10/14/2022 8:30 AM EDT Surgery [place] [address] Micah Dowling MD [facility] [place] [address] COLONOSCOPY FLEXIBLE, WITH BX (WRVU 3.56) Social History Tobacco Use Types Packs/Day Years [...] money to buy more. Never true 03/09/20 Within the past 12 months, t he [...] place to sleep or slept in a jail (including now)? No 03/09/2022 Sex and Gender Information Value Date Recorded Sex Assigned at Male 03/31/2023 12:56 PM EST Gender Identity Male 03/31/2023 12:56 PM EST Sexual Orientation Straight 03/31/2023 12 :56 PM EST documented as of this encounter Last Filed Vital Signs Vital Sign Reading Time Taken Comments Blood Pressure 106/73 10/14/2022 8:20 AM EDT Pulse 66 10/14/2022 8:20 AM EDT Temperature 36.7 ??C (98.1 ??F) 10/14/2022 7:05 AM ED T Respiratory Rate 18 10/14/2022 8:20 AM EDT Oxygen Saturation 97% 10/14/2022 8:30 AM EDT Inhaled Oxygen Concentration - - Weight 85.3 kg (188 lb) 10/14/2022 7:05 AM EDT Height 182.9 cm (6') 10/14/2022 7:05 AM EDT Body Mass Index 25.5 10/14/2022 7:05 AM EDT documented in this encounter Discharge Instructions * Discharge Instructions* Clary Smart RN - 10/14/2022 8:32 AM EDT Colonoscopy: What to Expect at Home [...] occurs, please contact your Doctor. Please call [phone] before 8pm Mon-Fri with problems, questions or concerns. If you call after 8pm or on weekends, call the Hospital at [phone] and ask to speak to the Beating Machine Operator animated cartoons painter and the retort furnace operator will contact that person for you. When should you call for help? Call [phone] anytime you think you may need emergency [...] any problems. Where can you learn more? [facility] View your After Visit Summary and more online at [email or web address] If you would like to provide feedback about your hospital experience, please call the Office of Patient and Family Relations at . If you have received this After Visit Summary in error, please immediately return it in person to the department, or notify the - Privacy Office by calling toll free at between the hours of 8AM and 5PM to arrange for our retrieval of the documents at no cost to you. Content Version: 12.2 ?? [id number] [employer]. Care instructions adapted under license by [facility]. If you have questions about a medical condition or this instruction, always ask your healthcare professional. [employer] disclaims any warranty or liability for your use of this information. documented in this encounter Medications at Time of Discharge Medication Sig Dispensed Refills Start Date End Date ondansetron (Zofran) 4 mg Tablet Take 1 tablet by mouth every 8 hours as needed for Nausea. 10 tablet 03/04/2020 mesalamine (Shaila) 1.[address] tabletIndications:Ulcer ative colitis without complications, unspecified location TAKE 2 TABLETS BY MOUTH EVERY DAY 180 tablet 1 08/17/2022 02/07/2023 folic acid (Vitamin B9) 1 mg tabletIndications:Ulcer ative colitis without complications, unspecified location TAKE 1 TABLET BY MOUTH EVERY DAY 90 tablet 1 08/17/2022 02/07/2023 azaTHIOprine (Imuran) 50 mg TabletIndications:Autoi mmune hepatitis TAKE 2 TABLETS BY MOUTH DAILY 180 tablet 1 06/21/2022 12/22/2022 ursodioL (Yoli-250) 250 mg TabletIndications:Prima ry sclerosing cholangitis TAKE 2 TABLETS 2 TIMES A DAY BY MOUTH 360 tablet 1 06/21/2022 12/22/2022 calcium-vitamin D 500 mg-5 mcg (200 unit) Tablet Take 1 tablet by mouth daily. 03/31/2023 documented as of this encounter H&P Notes * Micah Dowling MD - 10/14/2022 7:42 AM EDT Patient Name: Mahamed Dale Patient Age: 42 y.o. Birthdate: 1980 Admit date: 10/14/2022 Attending Physician: Micah Dowling MD Gastroenterology and Hepatology Pre-Procedure History and Physical Exam Procedure: Colonoscopy: Indication: high risk surveillance for UC Patient Active Problem List Diagnosis Code Hepatitis, [...] patient. Consent signed. documented in this encounter Miscellaneous Notes * Op Note - Micah Dowling MD - 10/14/2022 7:51 AM EDT Operative Note Patient Name: Mahamed Dale : [id number] MR#: [id number] Case Date: 10/14/2022 Surgeon: Surgeon(s) and Role: * Micah Dowling MD - Primary Procedure(s): COLONOSCOPY FLEXIBLE, WITH BX (WRVU 3.56) Please see Provation report for details. documented in this encounter Plan of Treatment Upcoming Encounters Date Type Department Care Team (Late st Contact Info) Description 02/13/2024 1:00 PM EDT Clinical Support Primary Care at [address] [address] 03/12/2024 8:50 AM [place] [address] Camilla Nava MD [facility] DR GASTROENTEROLOGY [place], [place] [id number] 03/20/2024 8:00 AM EST Office Visit [place] [address] Camilla Nava MD [facility] [place] [address] documented as of this encounter Procedures Procedure Name Priority Date/Time Associated Diagnosis Comments SURGICAL PATHOLOGY REPORT Routine 10/14/2022 8:21 AM EDT SPECIMEN TO PATHOLOGY Routine 10/14/2022 8:21 AM EDT SPECIMEN TO PATHOLOGY Routine 10/14/2022 8:21 AM EDT SPECIMEN TO PATHOLOGY Routine 10/14/2022 8:21 AM EDT Colonoscopy, Biopsy ([id number]) 10/14/2022 7:39 AM EDT - Repeat colonoscopy in 1 year with h/o dysplasia and PSC COLONOSCOPY Routine 10/14/2022 7:26 AM EDT documented in this encounter Results * Surgical Pathology Report (10/14/2022 8:21 AM EDT) Final Diagnosis [id number] ? Location: 4T; [facility]; A The signing pathologist has (i) examined the relevant preparation(s) for the specimen(s) and (ii) rendered or confirmed the diagnosis(es). . ?Surgical Pathology DIAGNOSIS A - Targeted ascending colon, biopsy: - ??Inactive chronic colitis, no dysplasia is seen. B - Hepatic Flexure, biopsy: - ??Tubular adenoma. C - Targeted sigmoid colon, biopsy: - ??Inactive chronic colitis, no dysplasia is seen. - ??Hyperplastic polyp. CR-PX Electronically signed by: ?Portillo Glass MD Verified: ??10/20/2022 14:41 ??Pathologist Performed at: ??-[facility] Dept. [place]ology, [place] [address] Respiratory Assistant: Portillo Glass MD, FCAP, ??CLIA Certificate: [id number] SPECIMEN(S) SUBMITTED A - Targeted ascending colon, biopsy (1) B - Hepatic Flexure, biopsy (1) C - Targeted sigmoid colon, biopsy (2) CLINICAL INFORMATION 42-year-old male surveillance colonoscopy for history of UC and PSC SPECIMEN PROCESSING A - Labeled/Fixative : Targeted ascending colon, formalin. Quantity/Size: Two, 0.2 and 0.3 cm. Tissue Description: Soft, swenson-pink tissues. Sections/Process ing: Submitted in toto ??in 1 cassette labeled A1. B - Labeled/Fixative : Hepatic flexure, formalin. Quantity/Size: Fragments, 0.2-0.3 cm. Tissue Description: Soft, swenson-pink tissues. Sections/Process ing: Submitted in toto ??in 1 cassette labeled B1. C - Labeled/Fixative : Targeted sigmoid colon, formalin. Quantity/Size: Four, 0.3-0.5 cm. Tissue Description: Soft, strips of swenson-pink mucosal tissues. Sections/Process ing: Submitted in toto ??in 1 cassette labeled C1. ??pps 10/20/2022 2:41 PM EDT [facility] GI Biopsy 10/14/2022 8:21 AM EDT 10/14/2022 8:21 AM EDT GI Biopsy 10/14/2022 8:21 AM EDT 10/14/2022 8:21 AM EDT GI Biopsy 10/14/2022 8:21 AM EDT 10/14/2022 8:21 AM EDT Micah Dowling MD PATHOLOGY/CYTOLOGY O RDERABLES [facility] [place] [id number] [facility] [place] [address] * Specimen to Pathology (10/14/2022 8:21 AM EDT) AP Specimen 10/14/2022 8:21 AM EDT 10/14/2022 8:21 AM EDT Narrative [facility] - 10/14/2022 8:21 AM EDT Specimen requisition ordered. ??Separate Pathology report to follow Micah Dowling MD PATHOLOGY/CYTOLOGY O EVELIN Performing Organization Address [facility] [place] [address] * Specimen to Pathology (10/14/2022 8:21 AM EDT) AP Specimen 10/14/2022 8:21 AM EDT 10/14/2022 8:21 AM EDT Narrative [facility] - 10/14/2022 8:21 AM EDT Specimen requisition ordered. ??Separate Pathology report to follow Micah Dowling MD PATHOLOGY/CYTOLOGY O EVELIN Performing Organization Address [facility] [place] [address] * Specimen to Pathology (10/14/2022 8:21 AM EDT) AP Specimen 10/14/2022 8:21 AM EDT 10/14/2022 8:21 AM EDT Narrative [facility] - 10/14/2022 8:21 AM EDT Specimen requisition ordered. ??Separate Pathology report to follow Micah Dowling MD PATHOLOGY/CYTOLOGY O EVELIN Performing Organization Address [facility] [place] [address] * COLONOSCOPY (10/14/2022 7:26 AM EDT) COLONOSCOPY [facility] Endoscopy ___ Procedure Date: 10/14/2022 7:26 AM ? Patient Name: Mahamed Dale ? Date of : 1980 ? Age: 42 ? Order #: [id number] ? Instrument Name: [id number] ? ___ Procedure: ? Colonoscopy Indications: ? High risk colon cancer ? surveillance: Ulcerative colitis ? and PSC Patient Profile: ? This is a 42 year old male. 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 is taking azathioprine and ? mesalamine and is asymptomatic. Providers: ? Micah Dowling MD, Hayley Harding, ? Bucky Ferrer, Manual Equipment Mechanic Referring MD: ?Adiel Mooney MD, Camilla Nava MD Medicines: ? Midazolam 7 mg IV, Fentanyl 200 ? micrograms IV, Ondansetron 4 mg IV Complications: ? No immediate complications. ___ Procedure: ? The procedure, indications, ? benefits, risks [...] under ? direct visualization, advanced to ? 10 cm into the ileum. Careful ? inspection was made as the ? colonoscope was withdrawn. The ? colonoscopy was performed without ? difficulty. The patient tolerated ? the procedure well. The quality of ? the bowel preparation was excellent. ? Findings: ? The perianal and digital rectal examinations were ? normal. ? The terminal ileum appeared normal. ? No evidence of active colitis throughout the entire ? colon. Chromoendoscopy performed with BLI. Directed ? biopsies taken in the proximal ascending colon, at ? the hepatic flexure, and the sigmoid colon. All ? directed biopsies taken of slightly raised areas with ? subtly abnormal pit pattern, and these were ? completely removed. ? Moderate Sedation: ? I was present during the intraservice time as ? documented by the sedation RN. Impression: ?- The examined portion of the ileum ? was normal. ? - No evidence of active colitis - ? ulcerative colitis is in remission ? - Chromoendoscopy performed using ? BLI. Directed biopsies taken for ? survellance. Recommendation: ?- Await pathology results. ? - Repeat colonoscopy interval to be ? determined after review of ? pathology. ? - Follow-up in IBD Clinic ? Attending Participation: ? I personally performed the entire procedure. ? Micah Dowlign MD 10/14/2022 8:37:49 AM Number of Addenda: 0 Note Initiated On: 10/14/2022 7:26 AM PROVATION 10/14/2022 7:26 AM EDT Adiel Mooney MD GENERAL SURGICAL ORD ERABLES PROVATION documented in this encounter Visit Diagnoses Not on filedocumented in this encounter Administered Medications Inactive Administered Medications - up to 3 most recent administrations Medication Order MAR Action Action Date Dose Rate Site fentaNYL (pf) (50 mcg/mL) multi-dose injection PRN, Starting on Radhika 10/14/22 at 0740, Until Radhika 10/14/22 at 1110, Intra-Operative (Intra-Procedure), Routine Given 10/14/2022 7:50 AM EDT 50 mcg Given 10/14/2022 7:46 AM EDT 50 mcg Given 10/14/2022 7:43 AM EDT 50 mcg lactated ringers infusion 100 mL/hr, Intravenous, CONTINUOUS, Starting on Radhika 10/14/22 at 0730, Until Radhika 10/14/22 at 0856, Endoscopy (Day of Procedure) New Bag 10/14/2022 7:30 AM EDT 100 mL/hr 100 mL/hr midazolam (pf) (Versed) (1 mg/mL) multi-dose injection PRN, Starting on Radhika 10/14/22 at 0739, Until Radhika 10/14/22 at 1110, Intra-Operative (Intra-Procedure), Routine Given 10/14/2022 7:59 AM EDT 1 mg Given 10/14/2022 7:55 AM EDT 1 mg Given 10/14/2022 7:52 AM EDT 1 mg documented in this encounter Active and Recently Administered Medications Times are shown in EDT. Continuous Medication Order 10/12/2022 10/13/2022 10/14/2022 lactated ringers infusion (CANCELED) 100 mL/hr, Intravenous, CONTINUOUS, Starting on Radhika 10/14/22 at 0730, Until Radhika 10/14/22 at 0856, Endoscopy (Day of Procedure) 0730 (New Bag - Prov ider: Alaina Rachel RN) PRN Medication Order 10/12/2022 10/13/2022 10/14/2022 fentaNYL (pf) (50 mcg/mL) multi-dose injection (CANCELED) PRN, Starting on Radhika 10/14/22 at 0740, Until Radhika 10/14/22 at 1110, Intra-Operative (Intra-Procedure), Routine 0740 (Given - Provid er: Hayley Harding RN)0743 (Given - Provider: Hayley Harding RN)0746 (Given - Provider: Hayley Harding RN)0750 (Given - Provider: Hayley Harding RN) midazolam (pf) (Versed) (1 mg/mL) multi-dose injection (CANCELED) PRN, Starting on Radhika 10/14/22 at 0739, Until Radhika 10/14/22 at 1110, Intra-Operative (Intra-Procedure), Routine 0739 (Given - Provid er: Hayley Harding RN)0743 (Given - Provider: Hayley Harding RN)0746 (Given - Provider: Hayley Harding RN)0749 (Given - Provider: Hayley Harding RN)0752 (Given - Provider: Hayley Harding RN)0755 (Given - Provider: Hayley Harding RN)0759 (Given - Provider: Hayley Harding RN) documented in this encounter Care Teams Powderman Relationship Specialty Start Date End Date Adiel Mooney MD [facility] [place] [address] PCP - General General Internal Medicine 09/20/18 documented as of this encounter
--- OUTSIDE RECORDS SUMMARY | 2024-02-12 14:14 | XMS_ITS | Encounter Summary ---
Author Organization [facility] [place] [address] Care Team Providers Care Councilor Name Role Phone Adiel Mooney MD Primary Care Provider [phone] Encounter Details Date Type Department Care Team (Latest Contact Info) Description 10/08/2022 Travel Social History Tobacco Use Types Packs/Day [...] slept in a longterm (including now)? No 03/09/2022 Sex and Gender Information Value Date Recorded Sex Assigned at Male 03/31/2023 12:56 PM EST Gender Identity Male 03/31/2023 12:56 PM EST Sexual Orientation Straight 03/31/2023 12 :56 PM EST documented as of this encounter Plan of Treatment Upcoming Encounters Date Type Department Care Team (Late st Contact Info) Description 02/13/2024 1:00 PM EDT Clinical Support Primary Care at [address] [address] 03/12/2024 8:50 AM EST Appointment MRI at [place] [phone] Camilla Nava MD [facility] [place] [address] 03/20/2024 8:00 AM EST Office Visit Gastroenterology at [place] [phone] Camilla Nava MD [facility] [place] [address] documented as of this encounter Visit Diagnoses Not on filedocumented in this encounter Care Teams Councilor Relationship Specialty Start Date End Date Adiel Mooney MD [facility] INTER[facility] MEDICINE [place] [phone] PCP - General General Internal Medicine 09/20/18 documented as of this encounter
--- OUTSIDE RECORDS SUMMARY | 2024-02-12 14:14 | XMS_ITS | Encounter Summary ---
Author Organization [facility] [place] [address] Care Team Providers Care Health Clinician Name Role Phone Adiel Mooney MD Primary Care Provider [phone] Reason for Referral * Diagnostic Test (Routine) - Closed Specialty Diagnoses / Procedures Referred By Ronal cabrera Referred To Contact Radiology Diagnoses Primary sclerosing cholangitis Procedures MRI Cholangiopancreatography wwo Contrast PRG 3D INTERP&RPT W IMAGE PROCES CNCRNT SPRVSN NOT REQ INDPNDT WRKST PRG MRI ABDOMEN W/O&W CONTRAST Camilla Nava MD [facility] [place] [address] [place] [address] Referral ID Status Reason Start Date Expiration Date V isits Requested Visits Authorized [id number] Closed Specialty Service Requested 01/15/2022 07/14/2022 1 1 Reason for Visit * Diagnostic Test (Routine) - Closed Specialty Diagnoses / Procedures Referred By Ronal cabrera Referred To Contact Radiology Diagnoses Primary sclerosing cholangitis Procedures MRI Cholangiopancreatography wwo Contrast PRG 3D INTERP&RPT W IMAGE PROCES CNCRNT SPRVSN NOT REQ INDPNDT WRKST PRG MRI ABDOMEN W/O&W CONTRAST Camilla Nava MD [facility] [place] [address] [facility] [place] [address] Referral ID Status Reason Start Date Expiration Date V isits Requested Visits Authorized [id number] Closed Specialty Service Requested 01/15/2022 07/14/2022 1 1 Encounter Details Date Type Department Care Team (Latest Contact Info) Description 04/02/2022 7:07 AM EST - 04/02/2022 11:59 PM [facility] Encounter MRI at [facility] [place] [address] Camilla Nava MD [facility] [place] [address] Primary sclerosing cholangitis Discharge Disposition: Home Social [...] place to sleep or slept in a intermediate (including now)? No 03/09/2022 Sex and Gender [...] as needed for Nausea. 10 tablet 03/04/2020 calcium-vitamin D 500 mg-5 mcg (200 unit) Tablet Take 1 tablet by mouth daily. 03/31/2023 triamcinolone (Kenalog) 0.1 % Ointment Apply topically 2 times daily. Apply to skin lesion on wrist twice daily for 2 weeks 80 g 1 03/09/2022 08/12/2022 methylphenidate LA (Ritalin LA) 10 mg Capsule, Multiphasic Rel.50-50 Take 1 capsule by mouth every morning. 28 capsule 03/09/2022 08/12/[address] Lara) 1.2 gram Tablet, Delayed Release (E.C.)Indications:Ulce rative colitis without complications, unspecified location TAKE 2 TABLETS BY MOUTH EVERY DAY 180 tablet 1 02/19/2022 08/17/2022 ursodioL (Yoli-250) 250 mg TabletIndications:Prim jesusita sclerosing cholangitis TAKE 2 TABLETS 2 TIMES A DAY BY MOUTH 360 tablet 1 02/19/2022 06/21/2022 azaTHIOprine (Imuran) 50 mg TabletIndications:Auto immune hepatitis TAKE 2 TABLETS BY MOUTH DAILY 180 tablet 1 12/22/2021 06/21/2022 folic acid (Folvite) 1 mg TabletIndications:Ulce rative colitis without complications, unspecified location TAKE 1 TABLET BY MOUTH EVERY DAY 90 tablet 3 08/24/2021 08/17/2022 documented as of this encounter Plan of Treatment Upcoming Encounters Date Type Department Care Team (Late st Contact Info) Description 02/13/2024 1:00 PM EDT Clinical Support Primary Care at [address] [phone] 03/12/2024 8:50 AM [place] [phone] Camilla Nava MD [facility] [place] [address] 03/20/2024 8:00 AM EST Office [place] [address] Camilla Nava MD [facility] [place] [address] documented as of this encounter Procedures Procedure Name Priority Date/Time Associated Diagnosis Comments MRI CHOLANGIOPANCREATOGRAPHY WWO CONTRAST Routine 04/02/2022 9:15 AM EST Primary sclerosing cholangitis documented in this encounter Results * MRI Cholangiopancreatography wwo Contrast (04/02/2022 9:15 AM EST) Anatomical Region Laterality Modality Magnetic Resonan ce Impressions 04/02/2022 10:30 AM EST 1. ??Findings consistent with primary sclerosing cholangitis, stable. 2. ??No hepatobiliary mass. I have personally reviewed the image(s) and the resident's interpretation and agree with the findings, Michael Sosa MD at 04/02/2022 10:30 AM Thank you for letting us participate in the care of this patient. ??If you are a health care provider and have any questions regarding this report, please contact the number below. ??For patients who have questions please contact the health home care aide that requested your imaging first. ? Narrative 04/02/2022 10:30 AM EST EXAMINATION: MRI CHOLANGIOPANCREATOGRAPHY WWO CONTRAST ? CLINICAL HISTORY: PSC, screen for cholangiocarcinoma TECHNIQUE: MRI of the abdomen prior to and following the intravenous administration of 17ml Dotarem. Noncontrast MRCP was performed. 3D MRCP MIPS were created. COMPARISON: MRI/MRCP ??03/09/2021 FINDINGS: MRCP Bile ducts: Intrahepatic bile ducts are well visualized; unchanged scattered areas of intrahepatic biliary ductal stenosis and short segments of mild dilation. The common bile duct is of normal caliber and tapers smoothly at the ampulla. No intraluminal filling defects. Gallbladder: No stones or wall thickening. Pancreatic duct: Normal caliber and configuration. MRI Lower chest: No pleural fluid. Liver: Normal size and signal intensity. No lesions. Pancreas: Normal. Spleen: Normal. Adrenals: Normal. Kidneys: Normal. Vasculature: No aneurysm. Patent portal vein. Lymph nodes: No enlarged lymph nodes. Bowel: Nondilated, no inflammatory changes. Peritoneum and mesentery: No ascites or loculated fluid collection. Marrow Signal: Normal. Procedure Note Michael Sosa MD - 04/02/2022 EXAMINATION: MRI CHOLANGIOPANCREATOGRAPHY WWO CONTRAST CLINICAL HISTORY: PSC, screen for cholangiocarcinoma TECHNIQUE: MRI of the abdomen prior to and following the intravenous administration of 17ml Dotarem. Noncontrast MRCP was performed. 3D MRCPMIPS were created. COMPARISON: MRI/MRCP 03/09/2021 FINDINGS: MRCP Bile ducts: Intrahepatic bile ducts are well visualized; unchangedscattered areas of intrahepatic biliary ductal stenosis and short segments of mild dilation. The common bile duct is of normal caliber and tapers smoothly atthe ampulla. No intraluminal filling defects. Gallbladder: No stones or wall thickening. Pancreatic duct: Normal caliber and configuration. MRI Lower chest: No pleural fluid. Liver: Normal size and signal intensity. No lesions. Pancreas: Normal. Spleen: Normal. Adrenals: Normal. Kidneys: Normal. Vasculature: No aneurysm. Patent portal vein. Lymph nodes: No enlarged lymph nodes. Bowel: Nondilated, no inflammatory changes. Peritoneum and mesentery: No ascites or loculated fluid collection. Marrow Signal: Normal. IMPRESSION 1. Findings consistent with primary sclerosing cholangitis, stable. 2. No hepatobiliary mass. I have personally reviewed the image(s) and the resident's interpretationand agree with the findings, Michael Sosa MD at 04/02/2022 10:30 AM Thank you for letting us participate in the care of this patient. If youare a health care provider and have any questions regarding this report,please contact the number below. For patients who have questions please contactthe health home care aide that requested your imaging first. Camilla Nava MD IMG MRI ORDERABLES documented in this encounter Visit Diagnoses Diagnosis Primary sclerosing cholangitis Cholangitis documented in this encounter Administered Medications Inactive Administered Medications - up to 3 most recent administrations Medication Order MAR Action Action Date Dose Rate Site gadoterate meglumine (Dotarem) (0.5 mMol/mL) injection solution 0-100 mL 0-100 mL, Intravenous, ONCE PRN, 1 dose, Starting on Tue04/02/22 at 0854, Until Tue04/02/22 at 0854, Per Protocol, Radiology Contrast, Routine Given 04/02/2022 8:54 AM EST 17 mLs documented in this encounter Care Teams Health Clinician Relationship Specialty Start Date End Date Adiel Mooney MD [facility] GENERAL [place] [address] PCP - General General Internal Medicine 09/20/18 documented as of this encounter
--- OUTSIDE RECORDS SUMMARY | 2024-02-12 14:14 | XMS_ITS | Encounter Summary ---
Author Organization [facility] [place] [address] Care Team Providers Care Fender Finisher Name Role Phone Adiel Mooney MD Primary Care Provider [phone] Encounter Details Date Type Department Care Team (Late st Contact Info) Description 07/06/2022 Telephone Gastroenterology at [facility] [place] [place] [phone] Maida Flores Social History Tobacco Use Types Packs/Day Years [...] in a long term (including now)? No 03/09/2022 Sex and Gender Information Value Date Recorded Sex Assigned at Male 03/31/2023 12:56 PM EST Gender Identity Male 03/31/2023 12:56 PM EST Sexual Orientation Straight 03/31/2023 12 :56 PM EST documented as of this encounter Miscellaneous Notes * Telephone Encounter - Maida Flores - 07/06/2022 3:55 PM EDT Mahamed [facility] [id number] Diagnosis/Indication: Repeat colonoscopy in 1 year with h/o dysplasia and PSC. Please review patient chart to confirm if previous Endoscopy procedure was performed within system. If yes, take note of Anesthesia type used. If previous procedure found, and with MAC/propofol Anesthesia support was used, schedule this procedure with Anesthesia and skip the Anesthesia portion of questions. If not performed within system, not performed at all, or performed with IVCS, ask Anesthesia questions. SCHEDULING QUESTIONS (ask all patient these questions) 1. Have you ever had a/an Colonoscopy before? Yes: Date 09/17/2021 If yes, did you have any problems with the procedure (such as waking up during the procedure, pain or difficulties afterwards, etc.)? No What type of sedation was used: IV Conscious Sedation 2. Do you take any blood thinners or have you been diagnosed with a bleeding disorder that increases your risk of bleeding with procedures? No 3. Do you have a Pacemaker or Defibrillator device? If yes, send pool message to Cardiology with patient information and date or procedure. No 4. Are you a diabetic? If yes, call PCP/managing provider to discuss use of prep and any questions or concerns related to. No 5. Do you take any iron supplements or vitamins that contain iron? No 6. Do you have a preference regarding the gender of your provider? Yes Dowling or Grant only ANESTHESIA QUESTIONS (YES to any question, please book with Anesthesia support) 7. Have you ever been diagnosed with Pulmonary Hypertension and/or Congential Heart Disease? No 8. Have you been diagnosed with A-Fib (atrial fibrillation) that is NOT being well controled with medications? No 9. Have you ever had an allergic or adverse reaction to Fentanyl or Versed? No 10. Have you had a problem with sedation or anesthesia? (Waking up during procedure, extreme confusion after, etc.) No 11. Do you have a diagnosis of Obstructive Sleep Apnea that requires the use of a c-pap machine? No 12. Do you use an oxygen tank at home? No 13. Do you use a rescue inhaler more than twice per day? (COPD, severe asthma) No 14. Do you experience breathing problems when you lay flat for a period of time? No 15. Do you take prescription narcotic pain medications, including suboxone or methodone? No SCHEDULING CONFIRMATIONS: Please note any and all parts of your conversation with the patient here. 16. We offer all new patients an opportunity to have an appointment with one of our associate care providers to learn more about your upcoming procedure, ask questions and get answers. These appointments are offered via telehealth. Would you be interested in scheduling this appointment? (Only ask if NEW referral patient; skip this question if [facility] provider ordered the procedure.) No 17. Is there any other information or concerns you would like to us to share with your care team inrelation to your upcoming scheduled procedure? No 18. You must have a responsible constitution party who will drive you to your procedure, stay on campus for the entire duration of your procedure, and drive you home from your procedure. Who will likely be your dumpcart driver for the procedure? *Please Verify the height and weight, and adjust if height and/or weight have changed* Estimated body mass index is 24.9 kg/m?? as calculated from the following: Height as of 03/16/22: 183.5 cm (6' 0.24). Weight as of 03/16/22: 83.8 kg (184 lb 12.8 oz). *Delete if not needed* Height: 6' Weight: 180 BMI: 24.4 Age:42 y.o. documented in this encounter Plan of Treatment Upcoming Encounters Date Type Department Care Team (Late st Contact Info) Description 02/13/2024 1:00 PM EDT Clinical Support Primary Care at [address] [address] 03/12/2024 8:50 AM [place] [phone] Camilla Nava MD [facility] [place] [address] 03/20/2024 8:00 AM EST Office [place] [phone] Camilla Nava MD [facility] [place] [address] documented as of this encounter Visit Diagnoses Not on filedocumented in this encounter Care Teams Fender Finisher Relationship Specialty Start Date End Date Adiel Mooney MD [facility] [place] [address] PCP - General General Internal Medicine 09/20/18 documented as of this encounter
--- OUTSIDE RECORDS SUMMARY | 2024-02-12 14:14 | XMS_ITS | Encounter Summary ---
Author Organization [facility] [place] [address] Care Team Providers Care Second Rigger Name Role Phone Adiel Mooney MD Primary Care Provider [phone] Encounter Details Date Type Department Care Team (Latest Contact Info) Description 03/16/2022 Travel Social History Tobacco Use Types Packs/Day [...] place to sleep or slept in a senior care (including now)? No 03/09/2022 Sex and Gender Information Value Date Recorded Sex Assigned at Male 03/31/2023 12:56 PM EST Gender Identity Male 03/31/2023 12:56 PM EST Sexual Orientation Straight 03/31/2023 12 :56 PM EST documented as of this encounter Plan of Treatment Upcoming Encounters Date Type Department Care Team (Late st Contact Info) Description 02/13/2024 1:00 PM EDT Clinical Support Primary Care at [address] [address] 03/12/2024 8:50 AM EST Appointment MRI at [place] [phone] Camilla Nava MD [facility] [place] [address] 03/20/2024 8:00 AM EST Office Visit Gastroenterology at [place] [phone] Camilla Nava MD [facility] [place] [address] documented as of this encounter Visit Diagnoses Not on filedocumented in this encounter Care Teams Second Rigger Relationship Specialty Start Date End Date Adiel Mooney MD [facility] GENERAL INTERNAL MEDICINE [place] [phone] PCP - General General Internal Medicine 09/20/18 documented as of this encounter
--- OUTSIDE RECORDS SUMMARY | 2024-02-12 14:14 | XMS_ITS | Encounter Summary ---
Author Organization [facility] [place] [address] Care Team Providers Care Prime Broker Name Role Phone Adiel Mooney MD Primary Care Provider [phone] Encounter Details Date Type Department Care Team (Latest Contact Info) Description 03/17/2022 Travel Social History Tobacco Use Types Packs/Day [...] place to sleep or slept in a long-term (including now)? No 03/09/2022 Sex and Gender Information Value Date Recorded Sex Assigned at Male 03/31/2023 12:56 PM EST Gender Identity Male 03/31/2023 12:56 PM EST Sexual Orientation Straight 03/31/2023 12 :56 PM EST documented as of this encounter Plan of Treatment Upcoming Encounters Date Type Department Care Team (Late st Contact Info) Description 02/13/2024 1:00 PM EDT Clinical Support Primary Care at [address] [address] 03/12/2024 8:50 AM EST Appointment MRI at [place] [phone] Camilla Nava MD [facility] [place] [address] 03/20/2024 8:00 AM EST Office Visit Gastroenterology at [place] [phone] Camilla Nava MD [facility] [place] [address] documented as of this encounter Visit Diagnoses Not on filedocumented in this encounter Care Teams Prime Broker Relationship Specialty Start Date End Date Adiel Mooney MD [facility] GENERAL INTERNAL MEDICINE [place] [phone] PCP - General General Internal Medicine 09/20/18 documented as of this encounter
--- OUTSIDE RECORDS SUMMARY | 2024-02-12 14:14 | XMS_ITS | Encounter Summary ---
Author Organization [facility] [place] [address] Care Team Providers Care Camp Boss Name Role Phone Adiel Mooney MD Primary Care Provider [phone] Reason for Visit * Reason Comments Medication Refill Encounter Details Date Type Department Care Team (Late st Contact Info) Description 02/04/2023 [place] [phone] Camilla Nava MD [facility] [place] [address] Ulcerative colitis without complications, unspecified location Social History Tobacco Use Types Packs/Day Years [...] slept in a assisted (including now)? No 03/09/2022 Sex and Gender Information Value Date Recorded Sex Assigned at Male 03/31/2023 12:56 PM EST Gender Identity Male 03/31/2023 12:56 PM EST Sexual Orientation Straight 03/31/2023 12 :56 PM EST documented as of this encounter Plan of Treatment Upcoming Encounters Date Type Department Care Team (Late st Contact Info) Description 02/13/2024 1:00 PM EDT Clinical Support Primary Care at [address] [address] 03/12/2024 8:50 AM [place] [phone] Camilla Nava MD [facility] [place] [address] 03/20/2024 8:00 AM EST Office [place] [phone] Camilla Nava MD [facility] [place] [address] documented as of this encounter Visit Diagnoses Diagnosis Ulcerative colitis without complications, unspecified location documented in this encounter Care Teams Camp Boss Relationship Specialty Start Date End Date Adiel Mooney MD [facility] GENERAL [place] [address] PCP - General General Internal Medicine 09/20/18 documented as of this encounter
--- OUTSIDE RECORDS SUMMARY | 2024-02-12 14:14 | XMS_ITS | Encounter Summary ---
Author Organization [facility] [place] [address] Care Team Providers Care Fruit Receiver Name Role Phone Adiel Mooney MD Primary Care Provider [phone] Encounter Details Date Type Department Care Team (Latest Contact Info) Description 03/11/2023 5:50 PM EST Laboratory Appointment Lab [address] [place] [phone] Primary sclerosing cholangitis Social History Tobacco Use [...] slept in a [facility] (including now)? No 03/09/2022 Sex and Gender Information Value Date Recorded Sex Assigned at Male 03/31/2023 12:56 PM EST Gender Identity Male 03/31/2023 12:56 PM EST Sexual Orientation Straight 03/31/2023 12 :56 PM EST documented as of this encounter Plan of Treatment Upcoming Encounters Date Type Department Care Team (Late st Contact Info) Description 02/13/2024 1:00 PM EDT Clinical Support Primary Care at [address] [phone] 03/12/2024 8:50 AM [place] [phone] Camilla Nava MD [facility] [place] [address] 03/20/2024 8:00 AM EST Office [place] [phone] Camilla Nava MD [facility] [place] [address] documented as of this encounter Procedures Procedure Name Priority Date/Time Associated Diagnosis Comments HEMOGRAM Routine 03/11/2023 5:53 PM EST Primary sclerosing cholangitis DIFFERENTIAL, AUTOMATED Routine 03/11/2023 5:53 PM EST Primary sclerosing cholangitis CBC (WITH DIFF) Routine 03/11/2023 5:53 PM EST Primary sclerosing cholangitis COMPREHENSIVE METABOLIC PANEL Routine 03/11/2023 5:53 PM EST Primary sclerosing cholangitis documented in this encounter Results * Differential, Automated (03/11/2023 5:53 PM EST) Neutrophil % 69.4 % [facility] Neutrophil Absolute 5.20 1.70 - 6.10 x10(3)/[facility] LABORATORY Lymph % 20.7 % [facility] Lymphocytes Abs 1.6 0.9 - 3.2 x10(3)/[facility] LABORATORY Monocyte % 8.5 % [facility] Monocyte Abs 0.6 0.3 - 0.9 x10(3)/[facility] LABORATORY Eos % 0.5 % [facility] Eosinophils Abs 0.0 0.0 - 0.4 x10(3)/[facility] LABORATORY Basophil % 0.5 % [facility] Baso Absolute 0.0 0.0 - 0.1 x10(3)/[facility] LABORATORY Immature Gran % 0.40 % [facility] Comment: Immature granulocytes(IG's)percentage and absolute count will include metamyelocytes, myelocytes, and promyelocytes. Blood smears from CBCs yielding IG's will be scanned manually for concordance. If this scan disagrees with the automated IG or if promyelocytes are noted, a manual differential will be performed. Immature Gran Absolute 0.03 0.00 - 0.04 x10(3)/[facility] LABORATORY Blood 03/11/2023 5:53 PM EST 03/11/2023 5:57 PM EST Narrative Resulting Agency Comment Spec In Lab Camilla Nava MD HEMATOLOGY ORDERABLE S [place] [address] * (ABNORMAL) Hemogram (03/11/2023 5:53 PM EST) White Blood Cell 7.5 4.0 - 9.5 x10(3)/mc L [facility] Red Blood Cell 4.85 4.58 - 5.54 x10(6)/mc L [facility] Hemoglobin 15.7 13.7 - 16.5 g/dL [facility] Hematocrit 44.1 40.5 - 48.5 % [facility] Mean Cell Volume 90.9 82.9 - 93.1 fL [facility] Mean Cell Hemoglobin 32.4(H) 27.5 - 32.1 pg [facility] Mean Cell Hemoglobin Concentration 35.6 32.0 - 35.7 g/dL [facility] Platelet 256 145 - 357 x10(3)/mc L [facility] RDW Standard Deviation 42.4 36.0 - 45.0 fL [facility] RDW coefficient of variation 13.0 11.4 - 13.8 % [facility] Mean Platelet Volume 10.5 7.6 - 12.9 fL [facility] NRBC% auto 0.0 % [facility] NRBC Absolute 0.000 0.000 - 0.000 x10(3)/ L [facility] Blood 03/11/2023 5:53 PM EST 03/11/2023 5:57 PM EST Narrative Resulting Agency Comment Spec In Lab Camilla Nava MD HEMATOLOGY ORDERABLE S [place] [place] [address] * Comprehensive metabolic panel (non-fasting) (03/11/2023 5:53 PM EST) Glucose 90 65 - 199 mg/dL [facility] Comment:Diabetes: >=200 mg/d L plus symptoms Blood Urea Nitrogen 14 10 - 20 mg/dL [facility] Creatinine 0.95 0.80 - 1.50 mg/dL [facility] Sodium 141 135 - 145 mmol/L [facility] Potassium 4.1 3.5 - 5.0 mmol/L [facility] Comment: Please note: ??Patients with WBC >100,000 may have falsely elevated Potassium levels. ??For accurate Potassium quantification in these patients send serum separator tube (gold top) for subsequent determinations. ??Contact the Clinical Chemistry Laboratory if there are any questions. Chloride 103 98 - 107 mmol/L [facility] Carbon Dioxide 26 22 - 31 mmol/L [facility] Anion Gap 12 5 - 15 mmol/L [facility] Calcium 9.6 8.5 - 10.5 mg/dL [facility] Protein, Total 7.6 6.1 - 8.0 g/dL [facility] Albumin 4.7 3.2 - 5.2 g/dL [facility] Aspartate Aminotransferase 23 0 - 39 unit/L [facility] Alanine Aminotransferase 27 0 - 55 unit/L [facility] Alkaline Phosphatase 115 40 - 130 unit/L [facility] Bilirubin, Total 0.4 0.2 - 1.3 mg/dL [facility] Est Glomerular Filtration Rate 102 >=60 mL/min/1. 73 m?? [facility] Comment: This patient's estimated GFR was [...] and symptoms in addition to eGFR. Blood 03/11/2023 5:53 PM EST 03/11/2023 5:58 PM EST Narrative Resulting Agency Comment Spec In Lab Camilla Nava MD CHEMISTRY ORDERABLES [place] [address] documented in this encounter Visit Diagnoses Diagnosis Primary sclerosing cholangitis Cholangitis documented in this encounter Care Teams Fruit Receiver Relationship Specialty Start Date End Date Adiel Mooney MD [facility] [place]AL [place] [address] PCP - General General Internal Medicine 09/20/18 documented as of this encounter
--- OUTSIDE RECORDS SUMMARY | 2024-02-12 14:14 | XMS_ITS | Encounter Summary ---
Author Organization [facility] [place] [address] Care Team Providers Care Multicultural Services Librarian Name Role Phone Adiel Mooney MD Primary Care Provider [phone] Reason for Visit * Reason Comments Annual Exam No acute concerns Encounter Details Date Type Department Care Team (Late st Contact Info) Description 03/31/2023 1:00 PM EST Office Visit Internal Medicine at [address] [address] Adiel Mooney MD [facility] GENER[facility] [place] [address] Healthcare maintenance; Hepatitis, autoimmune; PSC (primary sclerosing cholangitis); Ulcerative pancolitis without complication Social History Tobacco Use Types Packs/Day Years Used Date Smoking Tobacco: Never Smokeless Tobacco: Never Alcohol Use Standard Drinks/Week Comments No 0 (1 standard drink = 0.6 oz pur e alcohol) [facility] Utilities Answer Date Recorded In the past 12 months has [employer], gas, oil, or water [employer] threatened to shut off services in your [...] slept in a penitentiary (including now)? No 03/31/2023 Sex and Gender Information Value Date Recorded Sex Assigned at Male 03/31/2023 12:56 PM EST Gender Identity Male 03/31/2023 12:56 PM EST Sexual Orientation Straight 03/31/2023 12 :56 PM EST documented as of this encounter Last Filed Vital Signs Vital Sign Reading Time Taken Comments Blood Pressure 133/80 03/31/2023 12:56 PM EST Pulse 79 03/31/2023 12:56 PM EST Temperature 36.3 ??C (97.3 ??F) 03/31/2023 1 2:56 PM EST Respiratory Rate 16 03/31/2023 12:5 6 PM EST Oxygen Saturation 100% 03/31/2023 12: 56 PM EST Inhaled Oxygen Concentration - - Weight 88.1 kg (194 lb 3.2 oz) 03/31/20 23 12:56 PM EST with shoes Height 183.1 cm (6' 0.09) 03/31/2023 1 2:56 PM EST Body Mass Index 26.27 03/31/2023 12:56 PM EST documented in this encounter Progress Notes * Adiel Mooney MD - 03/31/2023 1:00 PM EST ANNUAL PHYSICAL I. HISTORY a. Reason(s) for Visit: Mahamed Dale is 42 y.o. male is here for chronic and acute medical problems and preventive medical care. b. History of Present Illness:Presents with the following concerns UC: on mesalamine and imuran. Last colo 09/2022 without dysplasia. Plan for annual colos AIH/PSC: followed by Dr Nava and seen 03/23/2023. MRI stable ADD: Trial of Adderall 10mg daily but didn't get much benefit. Was on Wellbutrin 300mg daily but did not notice a difference. On no meds currently. c. Review of Systems: See HPI for pertinent ROS d. 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 Tobacco Use Smoking status: Never Smokeless tobacco: Never Vaping Use Vaping Use: Never used Substance and Sexual Activity Alcohol use: No Drug use: No Sexual activity: Yes Partners: Female Other Topics Concern None Social History Narrative Social Determinants of Health Financial Resource Strain: Low Risk (03/31/2023) Overall Financial Resource Strain (CARDIA) Difficulty of Paying Living Expenses: Not hard at all Food Insecurity: No Food Insecurity (03/31/2023) Hunger Vital Sign Worried About Running Out of Food in the Last Year: Never true Ran Out of Food in the Last Year: Never true Transportation Needs: No Transportation Needs (03/31/2023) PRAPARE - Transportation Lack of Transportation (Medical): No Lack of Transportation (Non-Medical): No Physical Activity: Unknown (03/31/2023) Exercise Vital Sign Days of Exercise per Week: 1 day Minutes of Exercise per Session: Not on file Intimate Partner Violence: Not on file Housing Stability: Low Risk (03/31/2023) Housing Stability Vital Sign Unable to Pay for Housing in the Last Year: No Number of Places Lived in the Last Year: 1 Unstable Housing in the Last Year: No FH: Family History Problem Relation Age of Onset Parkinsonism Father 60 Pacemaker Father Inflammatory Bowel Disease Maternal Grandfather Rheumatoid Arthritis Maternal Grandmother Lung Cancer Paternal Grandmother Heart Failure Paternal Grandfather PREVENTION: DT: tdap 05/07 td 02/2022 Pneumovax: 01/2020 Zoster vaccine: consider age 50 Flu: 01/15 Covid: completed with boosters. Got new vaccine Seat Belts: consistent Cholesterol (total/HDL/LDL): 2020: 174/58/103 Colon cancer screening: see HPI HIV: neg ASA age 50-79: consider age 50 if risk >10% AAA screening: non-smoker PSA: discuss age 55 Hep C: neg 02/2020 Lung cancer screening: never smoker II. PHYSICAL EXAM: BP 133/80 (BP Location (NBP): Left arm, Patient Position: Sitting, BP Cuff Sizes: Adult (25-34 cm)) Pulse 79 Temp 36.3 ??C (97.3 ??F) (Temporal) Resp 16 Ht 183.1 cm (6' 0.09) Wt 88.1 kg (194 lb 3.2 oz) Comment: with shoes SpO2 100% BMI 26.27 kg/m?? General - No apparent distress. ENT - Mouth without lesions. Oropharynx: moist without lesions Eyes- EOMI. Not jaundiced. PERRL Neck - No lymphadenopathy. Full range of motion, no bruits, no thyromegaly Lungs - Clear to auscultation Heart - RRR, S1,S2, no murmur, gallop or rub. Pulses intact. Abdomen - Soft, nontender, normal active bowel sounds, neg hsm or masses. Extremities - No clubbing, cyanosis or edema. Joints normal. Skin - No sig lesions. No rashes. Nodes - negative Chest/Back - no spinal tenderness, no CVAT [] Neurological - Orientation - person, place and time. Cranial nerves intact. Strength - 5/5 upper and lower extremities. Sensation - light touch intact. III. MEDICAL DECISION MAKING: Assessment/Plan: Mahamed Dale is 42 y.o. male , here for acute and chronic medical conditions and preventative care. Mahamed was seen today for annual exam. Diagnoses and all orders for this visit: Healthcare maintenance - See above Hepatitis, autoimmune/PSC (primary sclerosing cholangitis) - Doing well - Cont to follow with Dr Nava Ulcerative pancolitis without complication - Doing well - Cont current meds and f/u colo in 1 year documented in this encounter Plan of Treatment Upcoming Encounters Date Type Department Care Team (Late st Contact Info) Description 02/13/2024 1:00 PM EDT Clinical Support Primary Care at [address] [phone] 03/12/2024 8:50 AM [place] [address] Camilla Nava MD [facility] [place] [address] 03/20/2024 8:00 AM EST Office Visit Gastroenterology at [place] [phone] Camilla Nava MD [facility] [place] [address] documented as of this encounter Visit Diagnoses Diagnosis Healthcare maintenance Routine general medical examination at a health care facility Hepatitis, autoimmune Autoimmune hepatitis PSC (primary sclerosing cholangitis) Cholangitis Ulcerative pancolitis without complication documented in this encounter Care Teams Multicultural Services Librarian Relationship Specialty Start Date End Date Adiel Mooney MD [facility] [place] [address] PCP - General General Internal Medicine 09/20/18 documented as of this encounter
--- OUTSIDE RECORDS SUMMARY | 2024-02-12 14:14 | XMS_ITS | Encounter Summary ---
Author Organization [facility] [place] [address] Care Team Providers Care Licensed Nuclear Operator Name Role Phone Adiel Mooney MD Primary Care Provider [phone] Encounter Details Date Type Department Care Team (Late st Contact Info) Description 10/24/2023 Telephone Gastroenterology at [facility] [place] [phone] Argenis Canchola Social History Tobacco Use Types Packs/Day Years Used Date Smoking Tobacco: Never Smokeless Tobacco: Never Alcohol Use Standard Drinks/Week Comments No 0 (1 standard drink = 0.6 oz pur e alcohol) [facility] Utilities Answer Date Recorded In the past [...] place to sleep or slept in a usp (including now)? No 03/31/2023 Sex and Gender Information Value Date Recorded Sex Assigned at Male 03/31/2023 12:56 PM EST Gender Identity Male 03/31/2023 12:56 PM EST Sexual Orientation Straight 03/31/2023 12 :56 PM EST documented as of this encounter Miscellaneous Notes * Telephone Encounter - Argenis Canchola Darrian - 10/24/2023 1:21 PM EDT [id number] Diagnosis/Indication: High risk colon cancer Please review patient chart to confirm if [...] SCHEDULING QUESTIONS (ask all patient these questions) Have you ever had a/an Colonoscopy before? Yes: Date 10/14/22 If yes, did you have any problems with the procedure (such as waking up during the procedure, pain or difficulties afterwards, etc.)? No What type of sedation was used: IV Conscious Sedation (ASK ONLY FOR COLONOSCOPY PROCEDURES) Are you aware, or have you ever been told that you had a poor prep or failed prep with a previous colonoscopy? No If yes, assign the Extended MiraLAX Prep (ASK ONLY FOR COLONOSCOPY PROCEDURES) Do you have an ongoing history of constipation? (E.g., hard stools, >2 days without a bowel movement, straining or difficulty passing stool) No If yes, assign the Extended MiraLAX Prep Do you take any blood thinners or have you been diagnosed with a bleeding disorder that increases your risk of bleeding with procedures? No Do you have a Pacemaker or Defibrillator device? If yes, send pool message to Cardiology with patient information and date or procedure. No Do you have diabetes? If yes, call PCP/managing provider to discuss use of prep and any questions or concerns related to. No If yes, assign the Extended MiraLAX Prep Do you take any iron supplements or vitamins that contain iron? No Do you have a preference regarding the gender of your provider? Yes Dr Dowling ANESTHESIA QUESTIONS (YES to any question, please book with Anesthesia support) Have you ever been diagnosed with Pulmonary Hypertension and/or Congential Heart Disease? No Have you been diagnosed with A-Fib (atrial fibrillation) that is NOT being well controled with medications? No Have you ever had an allergic or adverse reaction to Fentanyl or Versed? No Have you had a problem with sedation or anesthesia? (Waking up during procedure, extreme confusion after, etc.) No Do you have a diagnosis of Obstructive Sleep Apnea that requires the use of a c- pap machine? No Do you use an oxygen tank at home? No Do you use a rescue inhaler more than twice per day? (COPD, severe asthma) No Do you experience breathing problems when you lay flat for a period of time? No Do you regularly take prescription opioid pain medications on a daily basis? (Includes oxycodone, Percocet, Suboxone, methadone, etc.) No If yes, assign the Extended MiraLAX Prep SCHEDULING CONFIRMATIONS: Please note any and all parts of your conversation with the patient here. We offer all new patients an opportunity to have an appointment with one of our associate care providers to learn more about your upcoming procedure, ask questions and get answers. These appointmentsare offered via telehealth. Would you be interested in scheduling this appointment? (Only ask if NEW referral patient; skip this question if [facility] provider ordered the procedure.) No Is there any other information or concerns you would like to us to share with your care team in relation to your upcoming scheduled procedure? Yes nausea w/Miralax prep-uses Zofran You must have a responsible constitution party who will drive you to your procedure, stay on campus for the entire duration of your procedure, and drive you home from your procedure. Who will likely be your grab driver for the procedure? Please Verify the height and weight, and adjust if height and/or weight have changed* Estimated body mass index is 26.27 kg/m?? as calculated from the following: Height as of 03/31/23: 183.1 cm (6' 0.09). Weight as of 03/31/23: 88.1 kg (194 lb 3.2 oz). Age:43 y.o. documented in this encounter Plan of Treatment Upcoming Encounters Date Type Department Care Team (Late st Contact Info) Description 02/13/2024 1:00 PM EDT Clinical Support Primary Care at [address] [phone] 03/12/2024 8:50 AM [place] [address] Camilla Nava MD [facility] [place] [address] 03/20/2024 8:00 AM EST Office [place] [address] Camilla Nava MD [facility] [place] [address] documented as of this encounter Visit Diagnoses Not on filedocumented in this encounter Care Teams Licensed Nuclear Operator Relationship Specialty Start Date End Date Adiel Mooney MD [facility] [place] [address] PCP - General General Internal Medicine 09/20/18 documented as of this encounter
--- OUTSIDE RECORDS SUMMARY | 2024-02-12 14:14 | XMS_ITS | Encounter Summary ---
Author Organization [facility] [place] [address] Care Team Providers Care Erisa Attorney Name Role Phone Adiel Mooney MD Primary Care Provider Encounter Details Date Type Department Care Team (Latest Contact Info) Description 03/08/2022 Travel Social History Tobacco Use Types Packs/Day [...] to sleep or slept in a senior living (including now)? No 03/09/2022 Sex and Gender Information Value Date Recorded Sex Assigned at Male 03/31/2023 12:56 PM EST Gender Identity Male 03/31/2023 12:56 PM EST Sexual Orientation Straight 03/31/2023 12 :56 PM EST documented as of this encounter Plan of Treatment Upcoming Encounters Date Type Department Care Team (Late st Contact Info) Description 02/13/2024 1:00 PM EDT Clinical Support Primary Care at [address] [address] 03/12/2024 8:50 AM EST Appointment MRI at [place] [phone] Camilla Nava MD [facility] [place] [address] 03/20/2024 8:00 AM EST Office Visit Gastroenterology at [place] [phone] Camilla Nava MD [facility] [address] documented as of this encounter Visit Diagnoses Not on filedocumented in this encounter Care Teams Erisa Attorney Relationship Specialty Start Date End Date Adiel Mooney MD [facility] INTERNAL MEDICINE [place] [phone] PCP - General General Internal Medicine 09/20/18 documented as of this encounter
--- OUTSIDE RECORDS SUMMARY | 2024-02-12 14:14 | XMS_ITS | Encounter Summary ---
Author Organization [facility] [place] [address] Care Team Providers Care House Piping Inspector Name Role Phone Adiel Mooney MD Primary Care Provider Reason for Visit * Reason Comments Medication Refill Encounter Details Date Type Department Care Team (Late st Contact Info) Description 12/22/2022 Refill [place] [phone] Camilla Nava MD [facility] [place] [address] Primary sclerosing cholangitis; Autoimmune hepatitis Social History [...] slept in a [facility] (including now)? No 03/09/2022 Sex and Gender Information Value Date Recorded Sex Assigned at Male 03/31/2023 12:56 PM EST Gender Identity Male 03/31/2023 12:56 PM EST Sexual Orientation Straight 03/31/2023 12 :56 PM EST documented as of this encounter Plan of Treatment Upcoming Encounters Date Type Department Care Team (Late st Contact Info) Description 02/13/2024 1:00 PM EDT Clinical Support Primary Care at [address] [phone] 03/12/2024 8:50 AM EST [place] [phone] Camilla Nava MD [facility] [place] [address] 03/20/2024 8:00 AM EST Office Visit [place] [phone] Camilla Nava MD [facility] [place] [address] documented as of this encounter Visit Diagnoses Diagnosis Primary sclerosing cholangitis Cholangitis Autoimmune hepatitis documented in this encounter Care Teams House Piping Inspector Relationship Specialty Start Date End Date Adiel Mooney MD [facility] [place] [address] PCP - General General Internal Medicine 09/20/18 documented as of this encounter
--- OUTSIDE RECORDS SUMMARY | 2024-02-12 14:14 | XMS_ITS | Encounter Summary ---
Author Organization [facility]ly [facility] [place] [address] Care Team Providers Care Security Field Supervisor Name Role Phone Adiel Mooney MD Primary Care Provider [phone] Encounter Details Date Type Department Care Team (Latest Contact Info) Description 08/12/2022 1:30 PM EDT Office Visit Dermatology at [facility] [address] [place] [address] Ollie Velasquez MD [facility] [address] [place] [address] Jimenez angioma; Lentigines; Multiple benign melanocytic nevi of upper and lower extremities and trunk; Keratosis pilaris; Post-inflammatory hyperpigmentation Social History Tobacco Use Types Packs/Day Years [...] place to sleep or slept in a mcc (including now)? No 03/09/2022 Sex and Gender Information Value Date Recorded Sex Assigned at Male 03/31/2023 12:56 PM EST Gender Identity Male 03/31/2023 12:56 PM EST Sexual Orientation Straight 03/31/2023 12 :56 PM EST documented as of this encounter Progress Notes * Casie White, PRODUCTION MATERIAL HANDLER - 08/12/2022 1:30 PM EDT Images from the original note were not included. DEPARTMENT OF DERMATOLOGY [facility] Provider: Ollie Velasquez MD Patient's preferred name Mahamed Preferred contact method for results []Phone [x]myD-H []Letter Detailed phone message OK? Yes Are there any other people with whom we may discuss your care? 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 Patient is referred to the clinic at the request of Camilla Nava for a full skin exam. Patient has been on azathiaprine for 20 years, and his PCPadvised that this could increase his risk of skin cancer. Patient reports: - Spot on the left dorsal radial wrist, present since last summer. Was red, itchy. Had tried an OTCanti-fungal on it with no help. PCP prescribed him a topical steroid last fall, which made the spotbright-red and angry. Has been left with a spot of hyperpigmentation. Today, it feels fine. Review of Systems: General: Feeling well. Skin: No other skin concerns. Medications: Reviewed in eD-H Allergies: Reviewed in eD-H Skin Examination: Full skin examination: Patient asked to undress to their comfort level. Verbalized that the provider???s preference is that the patient remove all clothing and that the provider will not examine areas patient elects to keep covered. Patient elects to keep underwear on and have the following examined: scalp, hair, face, ears, neck, chest, axillae, abdomen, back, and upper and lower extremities. Genitalia were not examined. Assessment/Plan #. Post-inflammatory Hyperpigmentation - ill-defined, darkened macules/patches in area of previous skin inflammation on the left dorsal radial wrist. - Inflammatory process may be incited by an infection, allergy, drug reaction, mechanical or thermal injury, phototoxic eruption, or an intrinsic skin disease. - Due to increase Melanin deposition in the skin. Recommendations: - Daily moisturizing with CeraVe or Vanicream 1-2x. - Sun protection with SPF 30. Advised to reapply every 2-4hrs. #. Keratosis Pilaris - Spiny, follicular-based papules with slight erythema on the thighs. - Recommended an acidified moisturizer, such as CeraVe SA cream or AmLactin lotion. #. Benign Nevi - Scattered medium brown, [...] and provided reassurance. Willcontinue to monitor. Other: ??? Sun protection discussed (protective clothing and SPF30+ broad-spectrum sunscreen) RTC: 1 year for FSE []Note routed to legal secretary [x]Recall placed in scheduling system []Appointment scheduled at checkout Scribe attestation: Inocente Arroyo [facility] has performed the documentation for this encounter in the presence of and acting as a scribe for Ollie Velasquez MD. I performed the above scribed service and agree with the accuracy of the documentation in this encounter. Reviewed and signed by: Ollie Velasquez MD Dermatology [facility] documented in this encounter Plan of Treatment Upcoming Encounters Date Type Department Care Team (Late st Contact Info) Description 02/13/2024 1:00 PM EDT Clinical Support Primary Care at [address] [address] 03/12/2024 8:50 AM [place] [phone] Camilla Nava MD [facility] [place] [address] 03/20/2024 8:00 AM EST Office [place] [phone] Camilla Nava MD [facility] [place] [address] documented as of this encounter Visit Diagnoses Diagnosis Jimenez angioma Nevus, non-neoplastic Lentigines Other dyschromia Multiple benign melanocytic nevi of upper and lower extremities and trunk Keratosis pilaris Other specified congenital anomaly of skin Post-inflammatory hyperpigmentation Dyschromia, unspecified documented in this encounter Care Teams Security Field Supervisor Relationship Specialty Start Date End Date Adiel Mooney MD [facility] [place] [address] PCP - General General Internal Medicine 09/20/18 documented as of this encounter
--- OUTSIDE RECORDS SUMMARY | 2024-02-12 14:14 | XMS_ITS | Encounter Summary ---
Author Organization [facility] [place] [address] Care Team Providers Care Edge Cutting Machine Operator Name Role Phone Adiel Mooney MD Primary Care Provider [phone] Encounter Details Date Type Department Care Team (Latest Contact Info) Description 09/02/2023 Travel Social History Tobacco Use Types Packs/Day Years Used Date Smoking Tobacco: Never Smokeless Tobacco: Never Alcohol Use Standard Drinks/Week Comments No 0 (1 standard drink = 0.6 oz pur e alcohol) [facility] Utilities Answer Date Recorded In the [...] slept in a intermediate (including now)? No 03/31/2023 Sex and Gender Information Value Date Recorded Sex Assigned at Male 03/31/2023 12:56 PM EST Gender Identity Male 03/31/2023 12:56 PM EST Sexual Orientation Straight 03/31/2023 12 :56 PM EST documented as of this encounter Plan of Treatment Upcoming Encounters Date Type Department Care Team (Late st Contact Info) Description 02/13/2024 1:00 PM EDT Clinical Support Primary Care at [address] [address] 03/12/2024 8:50 AM EST Appointment MRI at [place] [phone] Camilla Nava MD [facility] [place] [address] 03/20/2024 8:00 AM EST Office [place] [phone] Camilla Nava MD [facility] [place] [address] documented as of this encounter Visit Diagnoses Not on filedocumented in this encounter Care Teams Edge Cutting Machine Operator Relationship Specialty Start Date End Date Adiel Mooney MD [facility] GENER[facility] [place] [address] PCP - General General Internal Medicine 09/20/18 documented as of this encounter
--- OUTSIDE RECORDS SUMMARY | 2024-02-12 14:14 | XMS_ITS | Encounter Summary ---
Author Organization [facility] [place] [address] Care Team Providers Care Pharmacy Student Name Role Phone Adiel Mooney MD Primary Care Provider [phone] Encounter Details Date Type Department Care Team (Latest Contact Info) Description 03/23/2023 Travel Social History Tobacco Use Types Packs/Day [...] [place] [facility] (including now)? No 03/09/2022 Sex and Gender [...] EDT Clinical Support Primary Care at [address] [address] 03/12/2024 8:50 AM EST Appointment MRI at [place] [phone] Camilla Nava MD [facility] [place] [address] 03/20/2024 8:00 AM EST Office Visit Gastroenterology at [place] [phone] Camilla Nava MD [facility] [place] [address] documented as of this encounter Visit Diagnoses Not on filedocumented in this encounter Care Teams Pharmacy Student Relationship Specialty Start Date End Date Adiel Mooney MD [facility] GENERAL INTERNAL MEDICINE [place] [phone] PCP - General General Internal Medicine 09/20/18 documented as of this encounter
--- OUTSIDE RECORDS SUMMARY | 2024-02-12 14:14 | XMS_ITS | Encounter Summary ---
Author Organization [facility] [place] [address] Care Team Providers Care Chief Operator Reformer Name Role Phone Adiel Mooney MD Primary Care Provider [phone] Reason for Visit * Auth/Cert (Routine) Specialty Diagnoses / Procedures Referred By Contac t Referred To Contact Diagnoses Encounter for screening for malignant neoplasm of colon chromo colonoscopy-high risk per Dr Dowling Procedures PRO COLONOSCOPY, DIAGNOSTIC PRO COLONOSCOPY, BIOPSY PRO COLONOSCOPY, REMV LESN, SNARE COLONOSCOPY, DIAGNOSTIC (WRVU 3.26) Yumi Grant MD [facility] [place] [address] [facility] Referral ID Status Reason Start Date Expiration Date Visits Re quested Visits Authorized [id number] 1 1 Encounter Details Date Type Department Care Team (Latest Contact Info) Description 12/06/2023 11:59 AM EDT - 12/06/2023 2:54 PM EDT Hospital Encounter [place] [address] Yumi Grant MD [facility] [place] [address] Discharge Disposition: Home Social History Tobacco Use Types Packs/Day Years Used Date Smoking Tobacco: Never Smokeless Tobacco: Never Alcohol Use Standard Drinks/Week Comments No 0 (1 standard drink = 0.6 oz pur e alcohol) [facility] Utilities Answer Date Recorded In the [...] place to sleep or slept in a fpc (including now)? No 03/31/2023 Sex and Gender [...] occurs, please contact your Doctor. Please call [phone] before 8pm Mon-Fri with problems, questions or concerns. If you call after 8pm or on weekends, call the Hospital at [phone] and ask to speak to the Academic Associate marketing manager health communications and the drophammer operator will contact that person for you. When should you call for help? Call 259 anytime you think you may need emergency [...] any problems. Where can you learn more? [facility] View your After Visit Summary and more online at [email or web address] If you would like to provide feedback [...] cost to you. Content Version: 12.2 ?? 5035-0501 [employer]. Care instructions adapted under license by [facility]. If you have questions about a medical condition or this instruction, always ask your healthcare professional. [employer] disclaims any warranty or liability for your use of this information. documented in this encounter Medications at Time of Discharge Medication Sig Dispensed Refills Start Date End Date folic acid (Vitamin B9) 1 mg tabletIndications:Ulcer ative colitis without complications, unspecified location TAKE 1 TABLET BY MOUTH EVERY DAY 90 tablet 3 07/27/2023 mesalamyue FIELDS (Shaila) 1.2 gram tabletIndications:Ulcer ative colitis without [...] PM EDT Clinical Support Primary Care at [address] [address] 03/12/2024 8:50 AM [place] [phone] Camilla Nava MD [facility] [place] [place] [address] 03/20/2024 8:00 AM EST Office Visit [place] [phone] Camilla Nava MD [facility] [place] [address] documented as of this encounter Procedures Procedure Name Priority Date/Time Associated Diagnosis Comments SURGICAL PATHOLOGY Routine 12/06/2023 1: 44 PM EDT Colonoscopy, Remv Kirk Schulz ([id number]) 12/06/2023 1:18 PM EDT chromo colonoscopy-high risk per Dr Dowling COLONOSCOPY Routine 12/06/2023 12:34 PM EDT documented in this encounter Results * Surgical Pathology (12/06/2023 1:44 PM EDT) Case Report Surgical Pathology Report ? Case: [id number] ? Authorizing Provider: ??Yumi Grant MD ? Collected: ? 12/06/2023 1344 ? Ordering Location: ? [facility]enterology at [facility] ?? Received: ?12/06/2023 1607 ? Pathologist: ? Sienna Silva MD ? Specimens: ?? A) - Colon, Ascending, Polyps Ascending colon 6 mm, 6 mm ? B) - Colon, Hepatic Flexure, polyp hepatic flexure 15 mm ? C) - Colon, Rectosigmoid, targeted rectosigmoid ? 12/08/2023 12:50 PM EDT [facility] Final Diagnosis A. Colon, Ascending, Polyps Ascending colon 6 mm, 6 mm Polypectomy/Polype ctomies: Fragments of sessile serrated polyp/adenoma. B. Colon, Hepatic Flexure, polyp hepatic flexure 15 mm Polypectomy/Polype ctomies: Fragments of sessile serrated polyp/adenoma. C. Colon, Rectosigmoid, targeted rectosigmoid Biopsy: Hyperplastic polyp. CR-PX 12/08/2023 12:50 PM EDT [facility] Clinical Information A. Colon, Ascending, Polyps Ascending colon 6 mm, 6 mm Polyp B. Colon, Hepatic Flexure, polyp hepatic flexure 15 mm Polyp C. Colon, Rectosigmoid, targeted rectosigmoid Rule out dysplasia 12/08/2023 12:50 PM EDT [facility] Gross Description A. [...] cassette labeled C1. 12/08/2023 12:50 PM EDT [facility] Result Note Routine 12/08/2023 12:50 PM EDT [facility] Tissue ASCENDING COLON STRUCTURE / Unknown [...] Dowling L Rodney Grant MD PATHOLOGY/CYTOLOGY O EVELIN [facility] [place] [address] * COLONOSCOPY (12/06/2023 12:34 PM EDT) COLONOSCOPY [facility] Endoscopy ___ Procedure Date: 12/06/2023 12:34 PM ? Patient Name: Mahamed Dale ? N: [id number] ? Date of : 1980 ? Age: 43 ? Order #: [id number] ? Instrument Name: [id number] ? ___ Procedure: ? Colonoscopy Indications: ? [...] MD, Angel Redman ? , TAHMINA, Kam Tompkins Referring : ?Adiel Mooney MD Medicines: ? Midazolam 6 [...] preparation was evaluated ? using the BBPS (Winside Bowel ? Preparation Scale) with scores of: [...] MAR Action Action Date Dose Rate Site lactated ringers infusion 100 mL/hr, Intravenous, CONTINUOUS, Starting on Tue12/06/23 at 1245, Until Tue12/06/23 at 1446, Day of Surgery (Day of Procedure) New Bag 12/06/2023 12:47 PM EDT 100 mL/hr 100 mL/hr documented in this encounter Active and Recently Administered Medications Times are shown in EDT. Scheduled Medication Order 12/04/2023 12/05/2023 12/06/2023 ondansetron (pf) (Zofran) (2 mg/mL) injection 4 mg (COMPLETED) 4 mg, Intravenous, ONCE, 1 dose, On 12/06/23 at 1345, Endoscopy (Intra-Procedure) 1320 (Given - [...] RN)1330 (Given - Provider: Angel Romeo RN) midazolam (pf) (Versed) (1 mg/mL) multi-dose injection (CANCELED) PRN, Starting on Tue12/06/23 at 1318, Until Tue12/06/23 at 1655, Intra-Operative (Intra-Procedure), Routine 1318 (Given - Provid er: Angel Romeo RN)1321 (Given - Provider: Angel Romeo RN)1324 (Given - Provider: Angel Romeo RN)1327 (Given - Provider: Angel Romeo RN)1330 (Given - Provider: Angel Romeo RN) documented in this encounter Care Teams Chief Operator Reformer Relationship Specialty Start Date End Date Adiel Mooney MD [facility] [place] [address] PCP - General General Internal Medicine 09/20/18 documented as of this encounter
--- OUTSIDE RECORDS SUMMARY | 2024-02-12 14:14 | XMS_ITS | Encounter Summary ---
Author Organization [facility] [place] [address] Care Team Providers Care Machine Bunch Maker Name Role Phone Adiel Mooney MD Primary Care Provider [phone] Reason for Visit * Reason Comments Annual Exam Encounter Details Date Type Department Care Team (Late st Contact Info) Description 03/09/2022 10:00 AM EST Office Visit Internal Medicine at [address] [address] Adiel Mooney MD [facility] [place] [address] Ulcerative colitis without complications, unspecified location; PSC (primary sclerosing cholangitis); Healthcare maintenance; Attention deficit disorder, unspecified hyperactivity presence; Hepatitis, autoimmune; Osteopenia, unspecified location; Other eczema Social History Tobacco Use Types Packs/Day Years [...] Sign Reading Time Taken Comments Blood Pressure 134/81 03/09/2022 10:01 AM EST Pulse 73 03/09/2022 10:01 AM EST Temperature 36.7 ??C (98 ??F) 03/09/2022 10:01 AM EST Respiratory Rate - - Oxygen Saturation 100% 03/09/2022 10:01 AM EST Inhaled Oxygen Concentration - - Weight 84.1 kg (185 lb 6.4 oz) 03/09/2022 10:01 AM EST Height 183.5 cm (6' 0.24) 03/09/2022 10:[address] Body Mass Index 24.98 03/09/2022 10:01 AM EST documented in this encounter Progress Notes * Adiel Mooney MD - 03/09/2022 10:00 AM EST ANNUAL PHYSICAL I. HISTORY a. Reason(s) for Visit: Mahamed Dale is 41 y.o. male is here for chronic and acute medical problems and preventive medical care. b. History of Present Illness:Presents with the following concerns UC: on mesalamine and imuran. Followed by Dr Grant. Last colo 08/2021 AIH/PSC: followed by Dr Nava ADD: Trial of Adderall 10mg daily but didn???t get much benefit. Was on Wellbutrin 300mg daily but did not notice a difference so on no meds currently. Is working with a therapist at this point. Son responded well to ritalin. Has lesion on wrist that has been since the summer c. Review of Systems: See HPI for pertinent ROS d. PHx Patient Active Problem List Diagnosis ??? PSC (primary sclerosing cholangitis) ??? Healthcare maintenance ??? Hepatitis, autoimmune Diagnosed in 2001 based on LFTs elevated ??? Ulcerative colitis Diagnosed in 1996; On AZT and mesalamine No significant flare-ups since 2000 SH: Social History Socioeconomic History ??? Marital status: Spouse name: Not on file ??? Number of children: Not on file ??? Years of education: Not on file ??? Highest education level: Not on file Occupational History ??? 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 Smoking status: Never ??? Smokeless tobacco: Never Vaping Use ??? Vaping Use: Never used Substance and Sexual Activity ??? Alcohol use: No ??? Drug use: No ??? Sexual activity: Yes Partners: Female Other Topics Concern ??? 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 Parkinsonism Father 60 ??? Pacemaker Father ??? Inflammatory Bowel Disease Maternal Grandfather ??? Rheumatoid Arthritis Maternal Grandmother ??? Lung Cancer Paternal Grandmother ??? Heart Failure Paternal Grandfather PREVENTION: DT: tdap 05/07 td due 04/2022 Pneumovax: 01/2020 Zoster vaccine: consider age 50 Flu: 01/14 Covid: completed with booster an bivalent . Seat Belts: consistent Cholesterol (total/HDL/LDL): 2020: 174/58/103 Colon cancer screening: see HPI HIV: neg ASA age 50-79: consider age 50 if risk >10% AAA screening: non-smoker PSA: discuss age 55 Hep C: neg 02/2020 Lung cancer screening: never smoker II. PHYSICAL EXAM: BP 134/81 (BP Location (NBP): Left arm, Patient Position: Sitting, BP Cuff Sizes: Adult (25-34 cm)) Pulse 73 Temp 36.7 ??C (98 ??F) Ht 6' 0.24 (183.5 cm) Wt 84.1 kg (185 lb 6.4 oz) SpO2 100% BMI 24.98 kg/m?? General - No apparent distress. ENT [...] MEDICAL DECISION MAKING: Assessment/Plan: Mahamed Dale is 41 y.o. male , here for acute and chronic medical conditions and preventative care. Mahamed was seen today for annual exam. Diagnoses and all orders for this visit: Ulcerative colitis without complications, unspecified location - Cont to follow with Dr Grant PSC (primary sclerosing cholangitis) - Cont to follow with Dr Nava Healthcare maintenance - Td vaccine preservative free greater than or equal to 7yo IM Attention deficit disorder, unspecified hyperactivity presence - methylphenidate LA (Ritalin LA) 10 mg Capsule, Multiphasic Rel.50-50; Take 1 capsule by mouth every morning. Hepatitis, autoimmune Osteopenia, unspecified location - PTH Other eczema - triamcinolone (Kenalog) 0.1 % Ointment; Apply topically 2 times daily. Apply to skin lesion on wrist twice daily for 2 weeks * Moraima Astorga, RN - 03/09/2022 10:00 AM EST IM Td administered to L deltoid, pt tolerated well documented in this encounter Plan of Treatment Upcoming Encounters Date Type Department Care Team (Late st Contact Info) Description 02/13/2024 1:00 PM EDT Clinical Support Primary Care at [address] [address] 03/12/2024 8:50 AM EST Appointment MRI at [place] [phone] Camilla Nava MD [facility] [place] [address] 03/20/2024 8:00 AM EST Office [place] [phone] Camilla Nava MD [facility] [place] [address] documented as of this encounter Visit Diagnoses Diagnosis Ulcerative colitis without complications, unspecified location PSC (primary sclerosing cholangitis) Cholangitis Healthcare maintenance Routine general medical examination at a health care facility Attention deficit disorder, unspecified hyperactivity presence Hepatitis, autoimmune Autoimmune hepatitis Osteopenia, unspecified location Other eczema documented in this encounter Care Teams Machine Bunch Maker Relationship Specialty Start Date End Date Adiel Mooney MD [facility] [place] [address] PCP - General General Internal Medicine 09/20/18 documented as of this encounter
--- OUTSIDE RECORDS SUMMARY | 2024-02-12 14:14 | XMS_ITS | Encounter Summary ---
Author Organization [facility] [place] [address] Care Team Providers Care Jewel Bearing Turner Name Role Phone Adiel Mooney MD Primary Care Provider [phone] Encounter Details Date Type Department Care Team (Latest Contact Info) Description 10/08/2022 5:35 PM EDT Laboratory Appointment Lab [address] [place] [phone] Primary sclerosing cholangitis Social History Tobacco Use [...] place to sleep or slept in a group home (including now)? No 03/09/2022 Sex and [...] PM EDT Clinical Support Primary Care at [address] [phone] 03/12/2024 8:50 AM EST [place] [phone] Camilla Nava MD [facility] [place] [address] 03/20/2024 8:00 AM EST Office Visit [place] [phone] Camilla Nava MD [facility] [place] [address] documented as of this encounter Procedures Procedure Name Priority Date/Time Associated Diagnosis Comments HEMOGRAM Routine 10/08/2022 5:39 PM EDT Primary sclerosing cholangitis DIFFERENTIAL, AUTOMATED Routine 10/08/2022 5:39 PM EDT Primary sclerosing cholangitis CBC (WITH DIFF) Routine 10/08/2022 5:39 PM EDT Primary sclerosing cholangitis COMPREHENSIVE METABOLIC PANEL Routine 10/08/2022 5:39 PM EDT Primary sclerosing cholangitis documented in this encounter Results * Differential, Automated (10/08/2022 5:39 PM EDT) Neutrophil % 66.3 % [facility] Neutrophil Absolute 4.86 1.70 - 6.10 x10(3)/[facility] Lymph % 23.6 % [facility] Lymphocytes Abs 1.7 0.9 - 3.2 x10(3)/[facility] Monocyte % 8.6 % [facility] Monocyte Abs 0.6 0.3 - 0.9 x10(3)/[facility] Eos % 0.7 % [facility] Eosinophils Abs 0.0 0.0 - 0.4 x10(3)/[facility] Basophil % 0.5 % [facility] Baso Absolute 0.0 0.0 - 0.1 x10(3)/[facility] Immature Gran % 0.30 % [facility] Comment: Immature granulocytes(IG's)percentage and absolute count will include metamyelocytes, myelocytes, and promyelocytes. Blood smears from CBCs yielding IG's will be scanned manually for concordance. If this scan disagrees with the automated IG or if promyelocytes are noted, a manual differential will be performed. Immature Gran Absolute 0.02 0.00 - 0.04 x10(3)/[facility] Blood 10/08/2022 5:39 PM EDT 10/08/2022 5:47 PM EDT Narrative Resulting Agency Comment Spec In Lab Camilla Nava MD HEMATOLOGY ORDERABLE S [facility] [place] [address] * Hemogram (10/08/2022 5:39 PM EDT) White Blood Cell 7.3 4.0 - 9.5 x10(3)/[facility] Red Blood Cell 4.88 4.58 - 5.54 x10(6)/[facility] Hemoglobin 15.5 13.7 - 16.5 g/dL [facility] Hematocrit 44.5 40.5 - 48.5 % [facility] Mean Cell Volume 91.2 82.9 - 93.1 fL [facility] Mean Cell Hemoglobin 31.8 27.5 - 32.1 pg [facility] Mean Cell Hemoglobin Concentration 34.8 32.0 - 35.7 g/dL [facility] Platelet 242 145 - 357 x10(3)/[facility] RDW Standard Deviation 43.5 36.0 - 45.0 fL [facility] RDW coefficient of variation 13.0 11.4 - 13.8 % [facility] Mean Platelet Volume 10.3 7.6 - 12.9 fL [facility] NRBC% auto 0.0 % [facility] NRBC Absolute 0.000 0.000 - 0.000 x10(3)/[facility] Blood 10/08/2022 5:39 PM EDT 10/08/2022 5:47 PM EDT Narrative Resulting Agency Comment Spec In Lab Camilla Nava MD HEMATOLOGY ORDERABLE S [facility] [place] [address] * (ABNORMAL) Comprehensive metabolic panel (non-fasting) (10/08/2022 5:39 PM EDT) Pathologist [facility] Glucose 85 65 - 199 mg/dL [facility] Comment:Diabetes: >=200 mg/d L plus symptoms Blood Urea Nitrogen 10 10 - 20 mg/dL [facility] Creatinine 0.76(L) 0.80 - 1.50 mg/dL [facility] Sodium 143 135 - 145 mmol/L [facility] Potassium 3.9 3.5 - 5.0 mmol/L [facility] Comment: Please note: ??Patients with WBC >100,000 may have falsely elevated Potassium levels. ??For accurate Potassium quantification in these patients send serum separator tube (gold top) for subsequent determinations. ??Contact the Clinical Chemistry Laboratory if there are any questions. Chloride 106 98 - 107 mmol/L [facility] Carbon Dioxide 23 22 - 31 mmol/L [facility] Anion Gap 14 5 - 15 mmol/L [facility] Calcium 9.3 8.5 - 10.5 mg/dL [facility] Protein, Total 7.8 6.1 - 8.0 g/dL [facility] Albumin 4.7 3.2 - 5.2 g/dL [facility] Aspartate Aminotransferase 25 0 - 39 unit/L [facility] Alanine Aminotransferase 33 0 - 55 unit/L [facility] Alkaline Phosphatase 125 40 - 130 unit/L [facility] Bilirubin, Total 0.3 0.2 - 1.3 mg/dL [facility] Est Glomerular Filtration Rate 114 >=60 mL/min/1. 73 m?? [facility] Comment: This patient's estimated GFR [...] and symptoms in addition to eGFR. Blood 10/08/2022 5:39 PM EDT 10/08/2022 5:47 PM EDT Narrative Resulting Agency Comment Spec In Lab Camilla Nava MD CHEMISTRY ORDERABLES [facility] [address] [place] [address] documented in this encounter Visit Diagnoses Diagnosis Primary sclerosing cholangitis Cholangitis documented in this encounter Care Teams Jewel Bearing Turner Relationship Specialty Start Date End Date Adiel Mooney MD [facility] [place] [address] PCP - General General Internal Medicine 09/20/18 documented as of this encounter
--- OUTSIDE RECORDS SUMMARY | 2024-02-12 14:14 | XMS_ITS | Encounter Summary ---
Author [facility] [place] [address] Care Team Providers Care Crime Specialist Name Role Phone Adiel Mooney MD Primary Care Provider [phone] Reason for Referral * Diagnostic Test (Routine) - Closed Specialty Diagnoses / Procedures Referred By Contac t Referred To Contact Radiology Diagnoses Primary sclerosing cholangitis Procedures MRI Cholangiopancreatography wwo Contrast Camilla Nava MD [facility] [place] [address] [place] [address] Referral ID Status Reason Start Date Expiration Date V isits Requested Visits Authorized [id number] Closed Specialty Service Requested 01/22/2023 07/22/2024 1 1 Encounter Details Date Type Department Care Team (Late st Contact Info) Description 01/22/2023 Orders Only [place] [phone] Camilla Nava MD [facility] [place] [address] Primary sclerosing cholangitis Social History Tobacco Use [...] Upcoming Encounters Date Type Department Care Team (Hammad gibson Contact Info) Description 02/13/2024 1:00 PM EDT Clinical Support Primary Care at [address] [phone] 03/12/2024 8:50 AM [place] [phone] Camilla Nava MD [facility] [place] [address] 03/20/2024 8:00 AM EST Office Visit Gastroenterology at [facility] [place] [phone] Camilla Nava MD [facility] [place] [address] Scheduled Orders Name Type Priority Associated Diagnoses Orde r Schedule CBC (with Diff) Lab Routine Primary sclerosing cholangitis Every 6 months for 4 Occurrences starting 01/22/2023 until 10/22/2024, 2 completed Comprehensive metabolic panel (non-fasting) Lab Routine Primary sclerosing cholangitis Every 6 months for 4 Occurrences starting 01/22/2023 until 10/22/2024, 2 completed documented as of this encounter Results * Comprehensive metabolic panel (non-fasting) (09/02/2023 5:53 PM EDT) Pathologist [facility] Glucose 90 65 - 199 mg/dL [facility] Comment:Diabetes: >=200 mg/d L plus symptoms Blood Urea Nitrogen 12 10 - 20 mg/dL [facility] Creatinine 0.92 0.80 - 1.50 mg/dL [facility] Sodium 140 135 - 145 mmol/L [facility] Potassium 4.0 3.5 - 5.0 mmol/L [facility] Comment: Please note: ??Patients with WBC >100,000 may have falsely elevated Potassium levels. ??For accurate Potassium quantification in these patients send serum separator tube (gold top) for subsequent determinations. ??Contact the Clinical Chemistry Laboratory if there are any questions. Chloride 105 98 - 107 mmol/L [facility] Carbon Dioxide 27 22 - 31 mmol/L [facility] Anion Gap 8 5 - 15 mmol/L [facility] Calcium 9.7 8.5 - 10.5 mg/dL [facility] Protein, Total 7.6 6.1 - 8.0 g/dL [facility] Albumin 4.6 3.2 - 5.2 g/dL [facility] Aspartate Aminotransferase 25 0 - 39 unit/L [facility] Alanine Aminotransferase 37 0 - 55 unit/L [facility] Alkaline Phosphatase 120 40 - 130 unit/L [facility] Bilirubin, Total 0.4 0.2 - 1.3 mg/dL [facility] Est Glomerular Filtration Rate 105 >=60 mL/min/1. 73 m?? [facility] Comment: This patient's estimated GFR [...] In Lab Camilla Nava MD CHEMISTRY ORDERABLES Performing Organization Address City/State/[facility] Co de Phone Number [facility] [place] [address] * MRI Cholangiopancreatography wwo Contrast (03/21/2023 9:59 [...] who have questions please contact the health care center manager that requested your imaging first. ? Electronically signed by: Yaakov Galdamez MD, [facility] ([phone]), at 03/21/2023 10:28 AM Narrative 03/21/2023 10:28 AM EST EXAMINATION: MRI [...] patients who have questions please contactthe health care center manager that requested your imaging first. Electronically signed by: Yaakov Galdamez MD, [facility]([phone]), at 03/21/2023 10:28 AM Camilla Nava MD [facility] MRI ORDERABLES * Comprehensive metabolic panel (non-fasting) (03/11/2023 5:53 PM EST) Glucose 90 65 - 199 mg/dL [facility] Comment:Diabetes: >=200 mg/d L plus symptoms Blood Urea Nitrogen 14 10 - 20 mg/dL [facility] Creatinine 0.95 0.80 - 1.50 mg/dL [facility] Sodium 141 135 - 145 mmol/L [facility] Potassium 4.1 3.5 - 5.0 mmol/L [facility] Comment: Please note: ??Patients with WBC >100,000 may have falsely elevated Potassium levels. ??For accurate Potassium quantification in these patients send serum separator tube (gold top) for subsequent determinations. ??Contact the Clinical Chemistry Laboratory if there are any questions. Chloride 103 98 - 107 mmol/L [facility] Carbon Dioxide 26 22 - 31 mmol/L [facility] Anion Gap 12 5 - 15 mmol/L [facility] Calcium 9.6 8.5 - 10.5 mg/dL [facility] Protein, Total 7.6 6.1 - 8.0 g/dL [facility] Albumin 4.7 3.2 - 5.2 g/dL [facility] Aspartate Aminotransferase 23 0 - 39 unit/L [facility] Alanine Aminotransferase 27 0 - 55 unit/L [facility] Alkaline Phosphatase 115 40 - 130 unit/L [facility] Bilirubin, Total 0.4 0.2 - 1.3 mg/dL [facility] Est Glomerular Filtration Rate 102 >=60 mL/min/1. 73 m?? [facility] Comment: This patient's estimated GFR [...] In Lab Camilla Nava MD CHEMISTRY ORDERABLES [facility] [place] [address] documented in this encounter Visit Diagnoses Diagnosis Primary sclerosing cholangitis Cholangitis Primary sclerosing cholangitis Cholangitis documented in this encounter Care Teams Crime Specialist Relationship Specialty Start Date End Date Adiel Mooney MD [facility] [place] [address] PCP - General General Internal Medicine 09/20/18 documented as of this encounter
--- OUTSIDE RECORDS SUMMARY | 2024-02-12 14:14 | XMS_ITS | Encounter Summary ---
Author Organization [facility] [place] [address] Care Team Providers Care Needlemaker Name Role Phone Adiel Mooney MD Primary Care Provider [phone] Reason for Referral * Consultation (Routine) - Closed Specialty Diagnoses / Procedures Referred By Contac t Referred To Contact Dermatology Diagnoses Encounter for snf current use of azathioprine Camilla Longoria MD [facility] [place] [address] [facility] Dermatology [address] [place] [address] Referral ID Status Reason Start Date Expiration Date V isits Requested Visits Authorized [id number] Closed Consult, Test & Treat 03/16/2022 03/16/2023 1 1 Encounter Details Date Type Department Care Team (Late st Contact Info) Description 03/16/2022 8:00 AM EST Office [place] [address] Camilla Longoria MD [facility] [place] [address] Encounter for snf current use of azathioprine; Autoimmune hepatitis; Primary sclerosing cholangitis Social History [...] place to sleep or slept in a fci (including now)? No 03/09/2022 Sex and Gender Information Value Date Recorded Sex Assigned at Male 03/31/2023 12:56 PM EST Gender Identity Male 03/31/2023 12:56 PM EST Sexual Orientation Straight 03/31/2023 12 :56 PM EST documented as of this encounter Last Filed Vital Signs Vital Sign Reading Time Taken Comments Blood Pressure 114/78 03/16/2022 8:04 AM EST Pulse 85 03/16/2022 8:04 AM EST Temperature - - Respiratory Rate - - Oxygen Saturation - - Inhaled Oxygen Concentration - - Weight 83.8 kg (184 lb 12.8 oz) 03/16/2022 8:04 AM EST Height 183.5 cm (6' 0.24) 03/16/2022 8:04 AM ES T Body Mass Index 24.9 03/16/2022 8:04 AM EST documented in this encounter Progress Notes * Camilla Longoria MD - 03/16/2022 8:00 AM EST Gastoenterology & Hepatology Follow Up Note Provider: CAMILLA LONGORIA MD Gender: male : 1980 Referring Physician/Primary Care Physician: Adiel Mooney MD Problem List: 1. 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 ??Bile ducts show moderate damage. There is ductular reaction, but no evidence ??of ductopenia. Trichrome stain highlights mild to moderate portal fibrosis with ??periductal concentric accentuarion in some portal tracts. Focal bridging fibrosis ??cannot be excluded. In comparison to S-, there is increase in portal ??inflammation and fibrosis. There are no features suggestive of autoimmune hepatitis ??in this biopsy, however the findings are compatible with chronic cholangiopathy, ??stage 2 or 2-3/4. 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 Ulcerative colitis quiescent but was likely pancolitis diagnosed 1994, 1 major flare 2000 treated with prednisone maintained on asacol 1600mg bid folic acid aza (for AIH) Last colonoscopy 08/2021- Dr. Dowling- no dysplasia, hyperplastic polyps Osteopenia on bone density 04/2021- on calcium/vit D; repeat in 2025 Medications: Outpatient Medications Marked as Taking for the 03/16/22 encounter (Office Visit) with Camilla Longoria MD Medication Sig Dispense Refill ??? calcium-vitamin D 500 mg-5 mcg (200 unit) Tablet Take 1 tablet by mouth daily. ??? triamcinolone (Kenalog) 0.1 % Ointment Apply topically 2 times daily. Apply to skin lesion on wrist twice daily for 2 weeks 80 g 1 ??? methylphenidate LA (Ritalin LA) 10 mg Capsule, Multiphasic Rel.50-50 Take 1 capsule by mouth every morning. 28 capsule 0 ??? mesalamine (Shaila) 1.2 gram Tablet, Delayed Release (E.C.) TAKE 2 TABLETS BY MOUTH EVERY DAY 180 tablet 1 ??? ursodioL (Yoli-250) 250 mg Tablet TAKE 2 TABLETS 2 TIMES A DAY BY MOUTH 360 tablet 1 ??? azaTHIOprine (Imuran) 50 mg Tablet TAKE 2 TABLETS BY MOUTH DAILY 180 tablet 1 ??? folic acid (Folvite) 1 mg Tablet TAKE 1 TABLET BY MOUTH EVERY DAY 90 tablet 3 ??? ondansetron (Zofran) 4 mg Tablet Take 1 tablet by mouth every 8 hours as needed for Nausea. 10 tablet 0 ADR/ALLERGIES: Allergies Allergen Reactions ??? Hymenoptera Allergenic Extract Angioedema Generalized swelling in chest and neck. Never any wheese, sob or throat symtpoms. ??? Mefloquine Rash Rash occurred while taking sulfa medication and Mefloquine. Unaware of which gave him a reaction. ??? Sulfa (Sulfonamide Antibiotics) Rash Interval History: Mahamed Dale is a 41 y.o. male who presents for follow up of autoimmune hepatitis/PSC overlap syndrome. Bowels are unchanged. BM once a day or less, no blood. Soft stools. Weight is stable. VITAL SIGNS BP 114/78 (BP Location (NBP): Left arm, Patient Position: Sitting, BP Cuff Sizes: Adult (25-34 cm)) Pulse 85 Ht 183.5 cm (6' 0.24) Wt 83.8 kg (184 lb 12.8 oz) BMI 24.90 kg/m?? Physical Exam: appears well, in no distress. Lab Results Component Value Date NA 137 03/08/2022 K 3.7 03/08/2022 CL 102 03/08/2022 CO2 25 03/08/2022 BUN 10 03/08/2022 CREATININE 0.88 03/08/2022 GLUCOSE 98 03/08/2022 GLUCFASTING 106 (H) 01/19/2019 CALCIUM 9.7 03/08/2022 ESTGFR 110 03/08/2022 Lab Results Component Value Date ALT 20 03/08/2022 AST 21 03/08/2022 GGT 35 09/13/2019 ALKPHOS 104 03/08/2022 BILITOT 0.5 03/08/2022 BILIDIR 0.1 09/13/2019 ALBUMIN 4.9 03/08/2022 PROT 7.9 03/08/2022 Lab Results Component Value Date WBC 6.7 03/08/2022 HGB 16.2 03/08/2022 HCT 44.4 03/08/2022 MCV 89.2 03/08/2022 PLATELET 258 03/08/2022 Assessment/Plan: 41 y.o. male with UC and autoimmune hepatitis [...] mesalamine and azathioprine for UC -Colonoscopy in Spring 2022 for follow up low grade dysplasia.- needs miralax prep. I also gave himzofran for nausea during prep. -Cholangio-carcinoma screening is controversial. We will get yearly MRI/MRCP. -Ursodiol 500mg bid for PSC, lft's are normal. -AIH- azathioprine 100mg/day. -With cholestatic liver disease he is at increased risk of osteoporosis/penia. Will arrange bone density. -GIF in one year with MRI/MRCP prior, labs q 6 months; fibroscan in one year. Time spent with patient: 25 minutes Time in addition spent reviewing documents, documenting visit: Minutes 10 min Total visit time: 35 minutes Camilla Longoria MD Section of Gastroenterology & Hepatology [address] [place] [address] Copy: Adiel Mooney MD documented in this encounter Procedure Notes * Camilla Longoria MD - 03/16/2022 8:00 AM ESTAssociated Order(s): FIBROSCAN Procedure(s): FIBROSCAN Pre-Procedure Diagnose(s): Primary sclerosing cholangitis [facility] Liver Fibrosis Assessment Report Indication: PSC Performed by: Camilla Longoria MD Procedure: Vibration Controlled Transient Elastography (VCTE) or Fibroscan [place] Protocol: Patient's identity, procedure and site were verified, confirmatory pause performed. Discussed procedure including risks and potential complications. Questions answered. Patient verbalizes understanding and wishes to proceed with Fibroscan assessment. Patient was placed in the supine position with right arm in maximum abduction to allow optimal exposure of right lateral abdomen. Patient was briefly assessed. Testing was performed in the mid-axillary location. 50Hz Shear Wave pulses were applied and the resulting Shear Wave and Propagation Speed was detected with a 3.5MHz ultrasonic signal, using the Fibroscan probe. Skin to liver capsule distance and liver parenchyma were accessed during the entire examination with the Fibroscan probe. Patient was instructed to breathe normally and abstain from sudden movements during the procedure. At least ten Sheer Waves were produced; individual measurements of each Shear Wave were calculated. Patient tolerated the procedure well with no complications. Fibroscan Results: Median kPa: 7.3 Mean IQR: 19% (goal is <30 %) Number of valid measurements: 15 (at least 10 required) Number of invalid measurements: 0-1 Predicted fibrosis stage: F CAP (dB/m): Estimated steatosis grade: /3 % hepatocytes affected: > % Interpretation: Based on this Fibroscan result, history, clinical examination and review of laboratory and radiological data, this patient likely has stage F0-1 liver fibrosis. documented in this encounter Plan of Treatment Upcoming Encounters Date Type Department Care Team (Late st Contact Info) Description 02/13/2024 1:00 PM EDT Clinical Support Primary Care at [address] [address] 03/12/2024 8:50 [place] [address] Camilla Longoria MD [facility] [place] [address] 03/20/2024 8:00 AM EST [place] [address] Camilla Longoria MD [facility] [place] [address] Scheduled Referrals Name Type Priority Associated Diagnoses Orde r Schedule Referral to Dermatology Outpatient Referral Routine Encounter for buttermaker current use of azathioprine Ordered: 03/16/2022 documented as of this encounter Procedures Procedure Name Priority Date/Time Associated Diagnosis Comments [id number] Routine 03/16/2022 8:00 AM EST Primary sclerosing cholangitis documented in this encounter Results * [id number] (03/16/2022 8:00 AM EST) Narrative Camilla Longoria MD - 03/16/2022 8:00 AM EST Camilla Longoria MD ? 03/16/2022 ??9:00 AM [facility] Liver Fibrosis Assessment Report Indication: ??PSC Performed by: ??Camilla Longoria MD Procedure: Vibration Controlled Transient Elastography (VCTE) or Fibroscan [place] Protocol: Patient's identity, procedure and site were verified, confirmatory pause performed. Discussed procedure including risks and potential complications. Questions answered. Patient verbalizes understanding and wishes to proceed with Fibroscan assessment. Patient was placed in the supine position with right arm in maximum abduction to allow optimal exposure of right lateral abdomen. Patient was briefly assessed. Testing was performed in the mid-axillary location. 50Hz Shear Wave pulses were applied and the resulting Shear Wave and Propagation Speed was detected with a 3.5MHz ultrasonic signal, using the Fibroscan probe. Skin to liver capsule distance and liver parenchyma were accessed during the entire examination with the Fibroscan probe. Patient was instructed to breathe normally and abstain from sudden movements during the procedure. At least ten Sheer Waves were produced; individual measurements of each Shear Wave were calculated. Patient tolerated the procedure well with no complications. Fibroscan Results: Median kPa: 7.3 Mean IQR: 19% (goal is <30 %) Number of valid measurements: 15 (at least 10 required) Number of invalid measurements: 0-1 Predicted fibrosis stage: F CAP (dB/m): Estimated steatosis grade: /3 % hepatocytes affected: > ??% Interpretation: Based on this Fibroscan result, history, clinical examination and review of laboratory and radiological data, this patient likely has stage F0-1 liver fibrosis. Camilla Longoria MD PROCEDURE/MINOR SURG ICAL ORDERABLES documented in this encounter Visit Diagnoses Diagnosis Encounter for snf current use of azathioprine Autoimmune hepatitis Primary sclerosing cholangitis Cholangitis documented in this encounter Care Teams Needlemaker Relationship Specialty Start Date End Date Adiel Mooney MD [facility] [place] [address] PCP - General General Internal Medicine 09/20/18 documented as of this encounter
--- OUTSIDE RECORDS SUMMARY | 2024-02-12 14:14 | XMS_ITS | Encounter Summary ---
Author Organization [facility] [place] [address] Care Team Providers Care Mining Manager Name Role Phone Adiel Mooney MD Primary Care Provider [phone] Reason for Visit * Reason Onset Date Comments Prior Authorization 03/09/2022 Methylphenid ate HCl ER (LA) 10MG er capsules Encounter Details Date Type Department Care Team (Late st Contact Info) Description 03/09/2022 Telephone Internal Medicine at [place] [id number] Cecilia Muhammad CMA Prior Authorization (Methylphenidate HCl ER (LA) 10MG er capsules) Social History Tobacco Use Types Packs/Day Years [...] encounter Miscellaneous Notes * Telephone Encounter - Maranda Garcia CMA - 03/09/2022 12:28 PM EST Medication Prior Authorization Approval Approved: Methylphenidate HCI ER Start Date: 03/09/2022 End Date: 03/08/2023 Case/Reference #: LINO #[id number] See Approval Letter in scanned documents. * Telephone Encounter - Cecilia Muhammad CMA - 03/09/2022 11:12 AM EST Medication Prior Authorization Patient: Mahamed Dale Patient : 1980 Insurance Company: [employer] Sent via: [employer] System ([place]) Joiner: [id number] Physician: Adiel Mooney MD Medication Requested: methylphenidate LA (Ritalin LA) 10 mg Capsule, Multiphasic Rel.50-50 Frequency/Sig: take 1 capsule by mouth every morning Disp: 28 Refills: 0 Currently taking: no Diagnosis for this medication: Attention deficit disorder, unspecified hyperactivity presence F98.8 Prior medications trialed in this patient: Medication: adderall xr Approx Dates: [id number] Outcome/Adverse Reactions: Inadequate response Additional Notes: documented in this encounter Plan of Treatment Upcoming Encounters Date Type Department Care Team (Late st Contact Info) Description 02/13/2024 1:00 PM EDT Clinical Support Primary Care at [address] [address] 03/12/2024 8:50 AM EST Appointment MRI at [place] [phone] Camilla Nava MD [facility] [place] [address] 03/20/2024 8:00 AM EST Office Visit Gastroenterology at [place] [phone] Camilla Nava MD [facility] [place] [address] documented as of this encounter Visit Diagnoses Not on filedocumented in this encounter Care Teams Mining Manager Relationship Specialty Start Date End Date Adiel Mooney MD [facility] GENERAL [place] [address] PCP - General General Internal Medicine 09/20/18 documented as of this encounter
--- OUTSIDE RECORDS SUMMARY | 2024-02-12 14:14 | XMS_ITS | Encounter Summary ---
Author Organization [facility] [place] [address] Care Team Providers Care Stitcher Operator Name Role Phone Adiel Mooney MD Primary Care Provider [phone] Reason for Visit * Auth/Cert (Routine) Specialty Diagnoses / Procedures Referred By Contac t Referred To Contact Diagnoses - Repeat colonoscopy in 1 year with h/o dysplasia and PSC Procedures PRO COLONOSCOPY, DIAGNOSTIC COLONOSCOPY,SCREENING (WRVU 3.26) Micah Dowling MD [facility] [place] [place] [address] [facility] Referral ID Status Reason Start Date Expiration Date Visits Re quested Visits Authorized [id number] 1 1 Encounter Details Date Type Department Care Team (Latest Contact Info) Description 10/14/2022 6:34 AM EDT - 10/14/2022 9:09 AM EDT Hospital Encounter [place] [address] Micah Dowling MD [facility] [place] [place] [address] Discharge Disposition: Home Social History Tobacco Use [...] slept in a snf (including now)? No 03/09/2022 Sex and Gender Information Value Date Recorded Sex Assigned at Male 03/31/2023 12:56 PM EST Gender Identity Male 03/31/2023 12:56 PM EST Sexual Orientation Straight 03/31/2023 12 :56 PM EST documented as of this encounter Last Filed Vital Signs Vital Sign Reading Time Taken Comments Blood Pressure 105/75 10/14/2022 8:50 AM EDT Pulse 66 10/14/2022 8:20 AM EDT Temperature 36.7 ??C (98.1 ??F) 10/14/2022 7:05 AM ED T Respiratory Rate 14 10/14/2022 8:50 AM EDT Oxygen Saturation 97% 10/14/2022 8:50 AM EDT Inhaled Oxygen Concentration - - Weight 85.3 kg (188 lb) 10/14/2022 7:05 AM EDT Height 182.9 cm (6') 10/14/2022 7:05 AM EDT Body Mass Index 25.5 10/14/2022 7:05 AM EDT documented in this encounter Discharge Instructions * Discharge Instructions* Clary Smart, RN - 10/14/2022 8:32 AM EDT Colonoscopy: [...] occurs, please contact your Doctor. Please call [phone] before 8pm Mon-Fri with problems, questions or concerns. If you call after 8pm or on weekends, call the Hospital at [phone] and ask to speak to the Registered Nurse Nursery comparison shopper and the loom operator apprentice will contact that person for you. When should you call for help? Call 514 anytime you think you may need emergency [...] any problems. Where can you learn more? [facility] View your After Visit Summary and more online at [email or web address] If you would like to provide feedback about your hospital experience, please call the Office of Patient and Family Relations at . If you have received this After Visit Summary in error, please immediately return it in person to the department, or notify the [facility] Privacy Office by calling toll free at between the hours of 8AM and 5PM to arrange for our retrieval of the documents at no cost to you. Content Version: 12.2 ?? [id number] [facility]. Care instructions adapted under license by [facility]. If you have questions about a medical condition or this instruction, always ask your healthcare professional. [employer] disclaims any warranty or liability for your [...] Operative Note Patient Name: Mahamed Dale : [id number] MR#: [id number] Case Date: 10/14/2022 Surgeon: Surgeon(s) and Role: * Micah Dowling MD - Primary Procedure(s): COLONOSCOPY FLEXIBLE, WITH BX (WRVU 3.56) Please see Provation report for details. documented in this encounter Plan of Treatment Upcoming Encounters Date Type Department Care Team (Late st Contact Info) Description 02/13/2024 1:00 PM EDT Clinical Support Primary Care at [address] [address] 03/12/2024 8:50 AM [place] [phone] Camilla Nava MD [facility] [place] [address] 03/20/2024 8:00 AM EST Office [place] [phone] Camilla Nava MD [facility] [place] [address] documented as of this encounter Procedures Procedure Name Priority Date/Time Associated Diagnosis Comments SURGICAL PATHOLOGY REPORT Routine 10/14/2022 8:21 AM EDT SPECIMEN TO PATHOLOGY Routine 10/14/2022 8:21 AM EDT SPECIMEN TO PATHOLOGY Routine 10/14/2022 8:21 AM EDT SPECIMEN TO PATHOLOGY Routine 10/14/2022 8:21 AM EDT Colonoscopy, Biopsy ([id number]) 10/14/2022 7:39 AM EDT - Repeat colonoscopy in 1 year with h/o dysplasia and PSC COLONOSCOPY Routine 10/14/2022 7:26 AM EDT documented in this encounter Results * Surgical Pathology Report (10/14/2022 8:21 AM EDT) Final Diagnosis [id number] ? Location: 4; [facility]; A The signing pathologist has (i) [...] MD Verified: ??10/20/2022 14:41 ??Pathologist Performed at: ??-[facility] Dept. of Pathology, [place] [address] Counsel: Portillo Glass MD, FCAP, ??CLIA Certificate: [id number] SPECIMEN(S) SUBMITTED A - Targeted ascending colon, [...] labeled C1. ??pps 10/20/2022 2:41 PM EDT [facility] GI Biopsy 10/14/2022 8:21 AM EDT 10/14/2022 8:21 AM EDT GI Biopsy 10/14/2022 8:21 AM EDT 10/14/2022 8:21 AM EDT GI Biopsy 10/14/2022 8:21 AM EDT 10/14/2022 8:21 AM EDT Micah Dowling MD PATHOLOGY/[facility] [place] [phone] [facility] [place] [address] * Specimen to Pathology (10/14/2022 8:21 AM EDT) AP Specimen 10/14/2022 8:21 AM EDT 10/14/2022 8:21 AM EDT Narrative [facility] - 10/14/2022 8:21 AM EDT Specimen requisition ordered. ??Separate Pathology report to follow Micah Dowling MD PATHOLOGY/CYTOLOGY O EVELIN Performing Organization Address [facility] Co de Phone Number [facility] [place] [address] * Specimen to Pathology (10/14/2022 8:21 AM EDT) AP Specimen 10/14/2022 8:21 AM EDT 10/14/2022 8:21 AM EDT Narrative [facility] - 10/14/2022 8:21 AM EDT Specimen requisition ordered. ??Separate Pathology report to follow Micah Dowling MD PATHOLOGY/CYTOLOGY O EVELIN Performing Organization Address [facility] [place] [address] * Specimen to Pathology (10/14/2022 8:21 AM EDT) AP Specimen 10/14/2022 8:21 AM EDT 10/14/2022 8:21 AM EDT Narrative [facility] - 10/14/2022 8:21 AM EDT Specimen requisition ordered. ??Separate Pathology report to follow Micah Dowling MD PATHOLOGY/CYTOLOGY O EVELIN Performing Organization Address [facility] [place] [address] * COLONOSCOPY (10/14/2022 7:26 AM EDT) COLONOSCOPY [facility] Endoscopy ___ Procedure Date: 10/14/2022 7:26 AM ? Patient Name: [facility] ? Date of : 1980 ? Age: 42 ? Order #: [id number] ? Instrument Name: [id number] ? ___ Procedure: ? Colonoscopy Indications: ? High risk colon cancer ? surveillance: Ulcerative colitis ? and PSC Patient Profile: ? This is a 42 year old male. 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 is taking azathioprine and ? mesalamine and is asymptomatic. Providers: ? Micah Dowling MD, Hayley Harding, ? Bucky Ferrer, Sealer Dry Cell Referring MD: ?Adiel Mooney MD, Camilla Nava [...] personally performed the entire procedure. ? Micah Dowling MD 10/14/2022 8:37:49 AM Number of Addenda: [...] 7:30 AM EDT 100 mL/hr 100 mL/hr documented in [...] Provider: Hayley Harding RN)[phone] (Given - Provider: Hayely Harding RN)[phone] (Given - Provider: Hayley Harding RN) documented in this encounter Care Teams Stitcher Operator Relationship Specialty Start Date End Date Adiel Mooney MD [facility] [place] [address] PCP - General General Internal Medicine 09/20/18 documented as of this encounter
--- OUTSIDE RECORDS SUMMARY | 2024-02-12 14:14 | XMS_ITS | Encounter Summary ---
Author Organization [facility] [place] [address] Care Team Providers Care International Marketing Manager Name Role Phone Adiel Mooney MD Primary Care Provider [phone] Reason for Visit * Reason Comments Medication Refill Encounter Details Date Type Department Care Team (Late st Contact Info) Description 08/17/2022 [place] [phone] Camilla Nava MD [facility] [place] [address] Ulcerative colitis without complications, unspecified location Social [...] PM EDT Clinical Support Primary Care at [address] [phone] 03/12/2024 8:50 AM [place] [phone] Camilla Nava MD [facility] [place] [address] 03/20/2024 8:00 AM EST Office [place] [phone] Camilla Nava MD [facility] [place] [address] documented as of this encounter Visit Diagnoses Diagnosis Ulcerative colitis without complications, unspecified location documented in this encounter Care Teams International Marketing Manager Relationship Specialty Start Date End Date Adiel Mooney MD [facility] [place] [address] PCP - General General Internal Medicine 09/20/18 documented as of this encounter
--- OUTSIDE RECORDS SUMMARY | 2024-02-12 14:14 | XMS_ITS | Encounter Summary ---
Author Organization [facility] [place] [address] Care Team Providers Care Instrument Technician Name Role Phone Adiel Mooney MD Primary Care Provider [phone] Encounter Details Date Type Department Care Team (Latest Contact Info) Description 03/21/2023 Travel Social History Tobacco Use Types Packs/Day [...] EDT Clinical Support Primary Care at [address] [phone] 03/12/2024 8:50 AM EST Appointment MRI at [place] [phone] Camilla Nava MD [facility] [address] 03/20/2024 8:00 AM EST Office Visit Gastroenterology at [place] [phone] Camilla Nava MD [facility] [place] [address] documented as of this encounter Visit Diagnoses Not on filedocumented in this encounter Care Teams Instrument Technician Relationship Specialty Start Date End Date Adiel Mooney MD [facility] INTERNAL MEDICINE [place] [phone] PCP - General General Internal Medicine 09/20/18 documented as of this encounter
--- OUTSIDE RECORDS SUMMARY | 2024-02-12 14:14 | XMS_ITS | Encounter Summary ---
Author Organization [facility] [place] [address] Care Team Providers Care Non Destructive Evaluation Specialist Name Role Phone Adiel Mooney MD Primary Care Provider [phone] Encounter Details Date Type Department Care Team (Latest Contact Info) Description 03/11/2023 Travel Social History Tobacco Use Types Packs/Day [...] place to sleep or slept in a nursing home (including now)? No 03/09/2022 Sex and [...] PM EDT Clinical Support Primary Care at [address] [phone] 03/12/2024 8:50 AM EST Appointment MRI at [place] [phone] Camilla Nava MD [facility] [place] [address] 03/20/2024 8:00 AM EST Office Visit Gastroenterology at [place] [phone] Camilla Nava MD [facility] [place] [address] documented as of this encounter Visit Diagnoses Not on filedocumented in this encounter Care Teams Non Destructive Evaluation Specialist Relationship Specialty Start Date End Date Adiel Mooney MD [facility] GENERAL INTERNAL MEDICINE [place] [phone] PCP - General General Internal Medicine 09/20/18 documented as of this encounter
--- OUTSIDE RECORDS SUMMARY | 2024-02-12 14:14 | XMS_ITS | Encounter Summary ---
Author Organization [facility] [place] [address] Care Team Providers Care Screen Tender Helper Name Role Phone Adiel Mooney MD Primary Care Provider [phone] Reason for Visit * Reason Comments Medication Refill Encounter Details Date Type Department Care Team (Late st Contact Info) Description 07/27/2023 Refill [place] [phone] Camilla Nava MD [facility] [place] [address] Ulcerative colitis without complications, unspecified location Social History Tobacco Use Types Packs/Day Years Used Date Smoking Tobacco: Never Smokeless Tobacco: Never Alcohol Use Standard Drinks/Week Comments No 0 (1 standard drink = 0.6 oz pur e alcohol) [facility] Utilities Answer Date Recorded In the past 12 months has [employer], [employer], oil, or water [email or web address] threatened to shut off services in your [...] in a nursing home (including now)? No 03/31/2023 Sex and Gender Information Value Date Recorded Sex Assigned at Male 03/31/2023 12:56 PM EST Gender Identity Male 03/31/2023 12:56 PM EST Sexual Orientation Straight 03/31/2023 12 :56 PM EST documented as of this encounter Plan of Treatment Upcoming Encounters Date Type Department Care Team (Late st Contact Info) Description 02/13/2024 1:00 PM EDT Clinical Support Primary Care at [address] [phone] 03/12/2024 8:50 AM [place] [phone] Camilla Nava MD [facility] [place] [address] 03/20/2024 8:00 AM EST Office Visit Gastroenterology at [place] [phone] Camilla Nava MD [facility] [place] [address] documented as of this encounter Visit Diagnoses Diagnosis Ulcerative colitis without complications, unspecified location documented in this encounter Care Teams Screen Tender Helper Relationship Specialty Start Date End Date Adiel Mooney MD [facility] [address] PCP - General General Internal Medicine 09/20/18 documented as of this encounter
--- OUTSIDE RECORDS SUMMARY | 2024-02-12 14:14 | XMS_ITS | Encounter Summary ---
Author Organization [facility] [place] [address] Care Team Providers Care Tax Compliance Manager Name Role Phone Adiel Mooney MD Primary Care Provider [phone] Encounter Details Date Type Department Care Team (Latest Contact Info) Description 03/09/2022 Travel Social History Tobacco Use Types Packs/Day [...] place to sleep or slept in a prison (including now)? No 03/09/2022 Sex and Gender Information Value Date Recorded Sex Assigned at Male 03/31/2023 12:56 PM EST Gender Identity Male 03/31/2023 12:56 PM EST Sexual Orientation Straight 03/31/2023 12 :56 PM EST documented as of this encounter Plan of Treatment Upcoming Encounters Date Type Department Care Team (Late st Contact Info) Description 02/13/2024 1:00 PM EDT Clinical Support Primary Care at [address] [phone] 03/12/2024 8:50 AM EST Appointment MRI at [place] [phone] Camilla Nava MD [facility] [place] [address] 03/20/2024 8:00 AM EST Office Visit Gastroenterology at [place] [phone] Camilla Nava MD [facility] [place] [address] documented as of this encounter Visit Diagnoses Not on filedocumented in this encounter Care Teams Tax Compliance Manager Relationship Specialty Start Date End Date Adiel Mooney MD [facility] GENER[facility] INTERNAL MEDICINE [place] [phone] PCP - General General Internal Medicine 09/20/18 documented as of this encounter
--- OUTSIDE RECORDS SUMMARY | 2024-02-12 14:14 | XMS_ITS | Encounter Summary ---
Author Organization [facility] [place] [address] Care Team Providers Care Central Supply Technician Name Role Phone Adiel Mooney MD Primary Care Provider [phone] Encounter Details Date Type Department Care Team (Latest Contact Info) Description 09/02/2023 5:45 PM EDT Laboratory Appointment Lab [address] [place] [phone] Primary sclerosing cholangitis Social History Tobacco Use Types Packs/Day Years Used Date Smoking Tobacco: Never Smokeless Tobacco: Never Alcohol Use Standard Drinks/Week Comments No 0 (1 standard drink = 0.6 oz pur e alcohol) [facility] Utilities Answer Date Recorded In the past [...] in a care home (including now)? No 03/31/2023 Sex and [...] PM EDT Clinical Support Primary Care at [address] [phone] 03/12/2024 8:50 AM [place] [address] Camilla Nava MD [facility] [place] [address] 03/20/2024 8:00 AM EST Office Visit [place] [phone] Camilla Nava MD [facility] [place] [address] documented as of this encounter Procedures Procedure Name Priority Date/Time Associated Diagnosis Comments HEMOGRAM Routine 09/02/2023 5:53 PM EDT Primary sclerosing cholangitis DIFFERENTIAL, AUTOMATED Routine 09/02/2023 5:53 PM EDT Primary sclerosing cholangitis CBC (WITH DIFF) Routine 09/02/2023 5:53 PM EDT Primary sclerosing cholangitis COMPREHENSIVE METABOLIC PANEL Routine 09/02/2023 5:53 PM EDT Primary sclerosing cholangitis documented in this encounter Results * Differential, Automated (09/02/2023 5:53 PM EDT) Neutrophil % 66.8 % [facility] Neutrophil Absolute 4.69 1.70 - 6.10 x10(3)/[facility] Lymph % 21.8 % [facility] Lymphocytes Abs 1.5 0.9 - 3.2 x10(3)/[facility] Monocyte % 9.7 % [facility] Monocyte Abs 0.7 0.3 - 0.9 x10(3)/[facility] Eos % 1.0 % [facility] Eosinophils Abs 0.1 0.0 - 0.4 x10(3)/[facility] Basophil % 0.6 % [facility] Baso Absolute 0.0 0.0 - 0.1 x10(3)/[facility] Immature Gran % 0.10 % [facility] Comment: Immature granulocytes(IG's)percentage and absolute count will include metamyelocytes, myelocytes, and promyelocytes. Blood smears from CBCs yielding IG's will be scanned manually for concordance. If this scan disagrees with the automated IG or if promyelocytes are noted, a manual differential will be performed. Immature Gran Absolute 0.01 0.00 - 0.04 x10(3)/[facility] Blood 09/02/2023 5:53 PM EDT 09/02/2023 6:13 PM EDT Narrative Resulting Agency Comment Spec In Lab Camilla Brandy MD HEMATOLOGY ORDERABLE S [facility] [place] [address] * Hemogram (09/02/2023 5:53 PM EDT) [facility] White Blood Cell 7.0 4.0 - 9.5 x10(3)/[facility] Red Blood Cell 4.76 4.58 - 5.54 x10(6)/[facility] Hemoglobin 15.2 13.7 - 16.5 g/dL [facility] Hematocrit 43.0 40.5 - 48.5 % [facility] Mean Cell Volume 90.3 82.9 - 93.1 [facility] Mean Cell Hemoglobin 31.9 27.5 - 32.1 pg [facility] Mean Cell Hemoglobin Concentration 35.3 32.0 - 35.7 g/dL [facility] Platelet 227 145 - 357 x10(3)/[facility] RDW Standard Deviation 43.6 36.0 - 45.0 [facility] RDW coefficient of variation 13.2 11.4 - 13.8 % [facility] Mean Platelet Volume 10.7 7.6 - 12.9 [facility] NRBC% auto 0.0 % [facility] NRBC Absolute 0.000 0.000 - 0.000 x10(3)/[facility] Blood 09/02/2023 5:53 PM EDT 09/02/2023 6:13 PM EDT Narrative Resulting Agency Comment Spec In Lab Camilla Nava MD HEMATOLOGY ORDERABLE S [facility] [place] [address] * Comprehensive metabolic panel (non-fasting) (09/02/2023 5:53 PM EDT) [facility] Glucose 90 65 - 199 mg/dL [facility] Comment:Diabetes: >=200 mg/d L plus symptoms Blood Urea Nitrogen 12 10 - 20 mg/dL [facility] Creatinine 0.92 0.80 - 1.50 mg/dL [facility] Sodium 140 135 - 145 mmol/L [facility] Potassium 4.0 3.5 - 5.0 mmol/L [facility] Comment: Please note: ??Patients with WBC >100,000 may have falsely elevated Potassium levels. ??For accurate Potassium quantification in these patients send serum separator tube (gold top) for subsequent determinations. ??Contact the Clinical Chemistry Laboratory if there are any questions. Chloride 105 98 - 107 mmol/L [facility] Carbon Dioxide 27 22 - 31 mmol/L [facility] Anion Gap 8 5 - 15 mmol/L [facility] Calcium 9.7 8.5 - 10.5 mg/dL [facility] Protein, Total 7.6 6.1 - 8.0 g/dL [facility] Albumin 4.6 3.2 - 5.2 g/dL [facility] Aspartate Aminotransferase 25 0 - 39 unit/L [facility] Alanine Aminotransferase 37 0 - 55 unit/L [facility] Alkaline Phosphatase 120 40 - 130 unit/L [facility] Bilirubin, Total 0.4 0.2 - 1.3 mg/dL [facility] Est Glomerular Filtration Rate 105 >=60 mL/min/1. 73 m?? [facility] Comment: This patient's estimated GFR [...] In Lab Camilla Nava MD CHEMISTRY ORDERABLES [facility] [place] [address] documented in this encounter Visit Diagnoses Diagnosis Primary sclerosing cholangitis Cholangitis documented in this encounter Care Teams Central Supply Technician Relationship Specialty Start Date End Date Aidel Mooney MD [facility] [place] [address] PCP - General General Internal Medicine 09/20/18 documented as of this encounter
--- OUTSIDE RECORDS SUMMARY | 2024-02-12 14:14 | XMS_ITS | Encounter Summary ---
Author Organization [facility] [place] [address] Care Team Providers Care Staff Anesthetist Name Role Phone Adiel Mooney MD Primary Care Provider [phone] Encounter Details Date Type Department Care Team (Latest Contact Info) Description 08/12/2022 Travel Social History Tobacco Use Types Packs/Day [...] place to sleep or slept in a residential (including now)? No 03/09/2022 Sex and Gender Information Value Date Recorded Sex Assigned at Male 03/31/2023 12:56 PM EST Gender Identity Male 03/31/2023 12:56 PM EST Sexual Orientation Straight 03/31/2023 12 :56 PM EST documented as of this encounter Plan of Treatment Upcoming Encounters Date Type Department Care Team (Late st Contact Info) Description 02/13/2024 1:00 PM EDT Clinical Support Primary Care at [address] [phone] 03/12/2024 8:50 AM EST Appointment MRI at [place] [phone] Camilla Nava MD [facility] [place] [address] 03/20/2024 8:00 AM EST Office Visit Gastroenterology at [place] [phone] Camilla Nava MD [facility] [place] [address] documented as of this encounter Visit Diagnoses Not on filedocumented in this encounter Care Teams Staff Anesthetist Relationship Specialty Start Date End Date Adiel Mooney MD [facility] GENER[facility] INTERNAL MEDICINE [place] [phone] PCP - General General Internal Medicine 09/20/18 documented as of this encounter
--- OUTSIDE RECORDS SUMMARY | 2024-02-12 14:14 | XMS_ITS | Encounter Summary ---
Author Organization [facility] [place] [address] Care Team Providers Care Manager Story Name Role Phone Adiel Mooney MD Primary Care Provider [phone] Encounter Details Date Type Department Care Team (Latest Contact Info) Description 04/02/2022 Travel Social History Tobacco Use Types Packs/Day [...] PM EDT Clinical Support Primary Care at [address] [phone] 03/12/2024 8:50 AM EST Appointment MRI at [place] [phone] Camilla Nava MD [facility] [place] [address] 03/20/2024 8:00 AM EST Office Visit Gastroenterology at [place] [phone] Camilla Nava MD [facility] [place] [address] documented as of this encounter Visit Diagnoses Not on filedocumented in this encounter Care Teams Manager Story Relationship Specialty Start Date End Date Adiel Mooney MD [facility] GENERAL INTERNAL MEDICINE [place] [phone] PCP - General General Internal Medicine 09/20/18 documented as of this encounter
--- OUTSIDE RECORDS SUMMARY | 2024-02-12 14:15 | XMS_ITS | Encounter Summary ---
Author Organization Formerly [facility] [place] [address] Care Team Providers Care Restaurant Crew Name Role Phone Adiel Mooney MD Primary Care Provider [phone] Reason for Visit * Reason Comments Annual Exam Encounter Details Date Type Department Care Team (Late st Contact Info) Description 03/05/2021 11:20 AM EST Office Visit Internal Medicine at [address] [address] Adiel Mooney MD [facility] [place] [address] Attention deficit disorder, unspecified hyperactivity presence; PSC (primary sclerosing cholangitis); Ulcerative colitis without complications, unspecified location; Healthcare maintenance Social History Tobacco Use Types Packs/Day Years [...] care, and heating? Not hard at all 03/05/2021 Exercise Vital Sign Answer Date Recorde d On average, how many days pe r week do you engage in moderate to strenuous exercise (like a brisk walk)? 2 days Minutes of Exercise per Session Not on file 03/05/2021 Hunger Vital Sign Answer Date Recorded Within the past 12 months, y ou worried that your food would run out before you got the money to buy more. Never true 03/05/20 21 Within the past 12 months, t he food you bought just didn't last and you didn't have money to get more. Never true 03/05/2021 PRAPARE - Transportation Answer Date Re corded In the past 12 months, has l ack of transportation kept you from medical appointments or from getting medications? No 02/23 In the past 12 months, has l ack of transportation kept you from meetings, work, or from getting things needed for daily living? No 03/05/2021 Housing Stability Vital Sign Answer Rohit e Recorded In the last 12 months, was t here a time when you were not able to pay the mortgage or rent on time? No 03/05/2021 In the last 12 months, how many places have you lived? 1 03/05/2021 In the last 12 months, was t here a time when you did not have a steady place to sleep or slept in a half-way (including now)? No 03/05/2021 Sex and Gender Information Value Date Recorded Sex Assigned at Male 03/31/2023 12:56 PM EST Gender Identity Male 03/31/2023 12:56 PM EST Sexual Orientation Straight 03/31/2023 12 :56 PM EST documented as of this encounter Last Filed Vital Signs Vital Sign Reading Time Taken Comments Blood Pressure 123/69 03/05/2021 11:15 AM EST Pulse 81 03/05/2021 11:15 AM EST Temperature - - Respiratory Rate - - Oxygen Saturation - - Inhaled Oxygen Concentration - - Weight 81 kg (178 lb 9.6 oz) 03/05/2021 11:15 AM EST Height 183.5 cm (6' 0.24) 03/05/2021 11:[address] Body Mass Index 24.06 03/05/2021 11:15 AM EST documented in this encounter Progress Notes * Adiel Mooney MD - 03/05/2021 11:20 AM EST ANNUAL PHYSICAL I. HISTORY a. Reason(s) for Visit: Mahamed Dale is 40 y.o. male is here for chronic and acute medical problems and preventive medical care. b. History of Present Illness:Presents with the following concerns UC: on mesalamine and imuran. Followed by Dr Grant. Last colo 07/2020 due 07/2021 AIH/PSC: followed by Dr Nava with appointment on 03/11/21. ADD: Trial of Adderall 10mg daily but didn???t get much benefit. Was on Wellbutrin 300mg daily but did not notice a difference at this point. c. Review of Systems: See HPI for pertinent ROS d. PHx Patient Active Problem List Diagnosis ??? PSC (primary sclerosing cholangitis) ??? Healthcare maintenance ??? Hepatitis, autoimmune Diagnosed in 2001 based on LFTs elevated ??? Ulcerative colitis Diagnosed in 1996; On AZT and mesalamine No significant flare-ups since 2000 SH: Social History Socioeconomic History ??? Marital status: Spouse name: None ??? Number of children: None ??? Years of education: None ??? Highest education level: None Occupational History ??? 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 Smoking status: Never Smoker ??? Smokeless tobacco: Never Used Vaping Use ??? Vaping Use: Never used Substance and Sexual Activity ??? Alcohol use: No ??? Drug use: No ??? Sexual activity: Yes Partners: Female Other Topics Concern ??? None Social History Narrative 2 children, 8 weeks and 4 y old [employer] 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 Difficulty of Paying Living Expenses: Not hard at all Food Insecurity: No Food Insecurity ??? Worried About Running Out of Food in the Last Year: Never true ??? Ran Out of Food in the Last Year: Never true Transportation Needs: No Transportation Needs ??? Lack of Transportation (Medical): No ??? Lack of Transportation (Non-Medical): No Physical Activity: Unknown ??? Days of Exercise per Week: 2 days ??? Minutes of Exercise per Session: Not on file Housing Stability: Low Risk ??? Unable to Pay for Housing in the Last Year: No ??? Number of Places Lived in the Last Year: 1 ??? Unstable Housing in the Last Year: No FH: Family History Problem Relation Age of Onset ??? Parkinsonism Father 60 ??? Pacemaker Father ??? Inflammatory Bowel Disease Maternal Grandfather ??? Rheumatoid Arthritis Maternal Grandmother ??? Lung Cancer Paternal Grandmother ??? Heart Failure Paternal Grandfather PREVENTION: DT: tdap 05/07 Pneumovax: 01/2020 Zoster vaccine: consider age 50 Flu: 01/13 Covid: completed series of 3 due to moderna. Seat Belts: consistent Cholesterol (total/HDL/LDL): 2016: 159/61/84 due Colon cancer screening: see HPI HIV: neg ASA age 50-79: consider age 50 if risk >10% AAA screening: non-smoker PSA: discuss age 55 Hep C: neg 02/2020 Lung cancer screening: never smoker II. PHYSICAL EXAM: BP 123/69 (BP Location (NBP): Left arm, Patient Position: Sitting, BP Cuff Sizes: Adult (25-34 cm)) Pulse 81 Ht 183.5 cm (6' 0.24) Wt 81 kg (178 lb 9.6 oz) BMI 24.06 kg/m?? General - No apparent distress. ENT [...] MEDICAL DECISION MAKING: Assessment/Plan: Mahamed Dale is 40 y.o. male , here for acute and chronic medical conditions and preventative care. Mahamed was seen today for annual exam. Diagnoses and all orders for this visit: Attention deficit disorder, unspecified hyperactivity presence - No change PSC (primary sclerosing cholangitis) - Cont to follow with Dr Nava Ulcerative colitis without complications, unspecified location - [place] in Healthcare maintenance - Lipid Panel (Reflex Direct LDL); Future documented in this encounter Plan of Treatment Upcoming Encounters Date Type Department Care Team (Late st Contact Info) Description 02/13/2024 1:00 PM EDT Clinical Support Primary Care at [address] [phone] 03/12/2024 8:50 [place] [address] Camilla Nava MD [facility] [place] [address] 03/20/2024 8:00 AM EST Office [place] [address] Camilla Nava MD [facility] [place] [address] documented as of this encounter Results * Lipid Panel (Reflex Direct LDL) (03/09/2021 8:45 AM EST) Cholesterol, Total 174 mg/dL [facility] Comment: Lower Risk: <200 mg/dL Average Risk: 200-239 mg/dL Higher Risk: >as=126 mg/dL Triglyceride 67 mg/dL [facility] Comment: Average Risk/Lower Risk: <150 mg/dL Borderline High Risk: 150-199 mg/dL High Risk: 200-499 mg/dL Very High Risk: >tx=044 mg/dL HDL Cholesterol 58 mg/dL [facility] Comment: Males: ?? Higher Risk: <40 mg/dL Females: ?? Higher Risk: <50 mg/dL LDL Cholesterol 103 mg/dL [facility] Comment: Lowest Risk: <100 mg/dL Lower Risk: 100-129 mg/dL Borderline High Risk: 130-159 mg/dL High Risk: 160-189 mg/dL Very High Risk: >uw=791 mg/dL Cholesterol/HDL Ratio 3.0 ratio [facility] Lipid Interpretation See Note [facility] Comment: Lipid management should be guided by a patient? s ASCVD risk, goals and preferences. ACC/AHA Guidelines recommend high intensity statin if clinical ASCVD or LDL greater than or equal to 190 mg/dL. [email or web address] Adults aged 40-75 with LDL 70-189 mg/dL should have their 10 year ASCVD risk estimated with the ACC/AHA ASCVD risk drapery and upholstery estimator http://tools.acc.org/GUUIA-Hbhl-Cemzqvkos/ Statin should be discussed if risk greater [...] In Lab Adiel Mooney MD CHEMISTRY ORDERABLES [facility] [place] [address] documented in this encounter Visit Diagnoses Diagnosis Attention deficit disorder, unspecified hyperactivity presence PSC (primary sclerosing cholangitis) Cholangitis Ulcerative colitis without complications, unspecified location Healthcare maintenance Routine general medical examination at a health care facility documented in this encounter Care Teams Restaurant Crew Relationship Specialty Start Date End Date Adiel Mooney MD [facility] [place] [address] PCP - General General Internal Medicine 09/20/18 documented as of this encounter
--- OUTSIDE RECORDS SUMMARY | 2024-02-12 14:15 | XMS_ITS | Encounter Summary ---
Author Organization [facility] [place] [address] Care Team Providers Care Telephone Information Clerk Name Role Phone Adiel Mooney MD Primary Care Provider [phone] Reason for Visit * Auth/Cert Specialty Diagnoses / Procedures Referred By Contac t Referred To Contact Diagnoses 1 year f/u with me please for colonoscopy - with chromoendoscopy Thanks Procedures PRO COLONOSCOPY, DIAGNOSTIC COLONOSCOPY, DIAGNOSTIC Referral ID Status Reason Start Date Expiration Date Visits Re quested Visits Authorized [id number] 1 1 Encounter Details Date Type Department Care Team (Latest Contact Info) Description 09/17/2021 9:51 AM EDT - 09/17/2021 12:56 PM EDT Hospital En[place] [address] [facility] [place] [address] Discharge Disposition: Home Social History Tobacco Use [...] slept in a mcc (including now)? No 03/05/2021 Sex and Gender Information Value Date Recorded Sex Assigned at Male 03/31/2023 12:56 PM EST Gender Identity Male 03/31/2023 12:56 PM EST Sexual Orientation Straight 03/31/2023 12 :56 PM EST documented as of this encounter Last Filed Vital Signs Vital Sign Reading Time Taken Comments Blood Pressure 117/73 09/17/2021 12:40 PM EDT Pulse 78 09/17/2021 12:19 PM EDT Temperature 36.6 ??C (97.9 ??F) 09/17/2021 10:06 AM E DT Respiratory Rate 16 09/17/2021 12:40 PM EDT Oxygen Saturation 98% 09/17/2021 12:40 PM EDT Inhaled Oxygen Concentration - - Weight 83.9 kg (185 lb) 09/17/2021 10:06 AM EDT Height 182.9 cm (6') 09/17/2021 10:06 AM EDT Body Mass Index 25.09 09/17/2021 10:06 AM EDT documented in this encounter Discharge Instructions * Discharge Instructions* Sindy Bob RN - 09/17/2021 12:25 PM EDT Colonoscopy: What to Expect at [...] occurs, please contact your Doctor. Please call [phone] before 8pm Mon-Fri with problems, questions or concerns. If you call after 8pm or on weekends, call the Hospital at [phone] and ask to speak to the Burial V[employer] Deliverer And Installer supervisor telephone clerks and the groover operator will contact that person for you. When should you call for help? Call [phone] anytime you think you may need emergency [...] any problems. Where can you learn more? [facility] View your After Visit Summary and more online at [email or web address] If you would like to provide feedback about your hospital experience, please call the Office of Patient and Family Relations at . If you have received this After Visit Summary in error, please immediately return it in person to the department, or notify the [facility] Privacy Office by calling toll free at between the hours of 8AM and 5PM to arrange for our retrieval of the documents at no cost to you. Content Version: 12.2 ?? [id number] [employer]. Care instructions adapted under license by [facility]. If you have questions about a medical condition or this instruction, always ask your healthcare professional. [employer] disclaims any warranty or liability for your use of this information. documented in this encounter Medications at Time of Discharge Medication Sig Dispensed Refills Start Date End Date ondansetron (Zofran) 4 mg Tablet Take 1 tablet by mouth every 8 hours as needed for Nausea. 10 tablet 03/04/[address] (Lialda) 1.2 gram Tablet, Delayed Release (E.C.)Indications:Ulcer ative colitis without complications, unspecified location TAKE 2 TABLET DAILY 180 tablet 1 08/24/2021 02/19/2022 ursodioL (Yoli-250) 250 mg TabletIndications:Prima ry sclerosing cholangitis TAKE 2 TABLETS 2 TIMES A DAY BY MOUTH 360 tablet 1 08/24/2021 02/19/2022 folic acid (Folvite) 1 mg TabletIndications:Ulcer ative colitis without complications, unspecified location TAKE 1 TABLET BY MOUTH EVERY DAY 90 tablet 3 08/24/2021 08/17/2022 azaTHIOprine (Imuran) 50 mg TabletIndications:Autoi mmune hepatitis Take 2 tablets by mouth daily for 90 days. 180 tablet 1 06/22/2021 12/22/2021 documented as of this encounter H&P Notes * Micah Dowling MD - 09/17/2021 11:09 AM EDT Patient Name: Mahamed Dale Patient Age: 41 y.o. Birthdate: 1980 Admit date: 09/17/2021 Attending Physician: Micah Dowling MD Gastroenterology and Hepatology Pre-Procedure History and Physical Exam Procedure: Colonoscopy: Indication: surveillance for UC Patient Active Problem List Diagnosis Code ??? Hepatitis, autoimmune K75.4 ??? Ulcerative colitis K51.90 ??? Healthcare maintenance Z00.00 ??? 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 documented in this encounter Plan of Treatment Upcoming Encounters Date Type Department Care Team (Late st Contact Info) Description 02/13/2024 1:00 PM EDT Clinical Support Primary Care at [address] [address] 03/12/2024 8:50 [place] [address] [facility] [place] [address] 03/20/2024 8:00 AM EST Office [place] [phone] [facility] [place] [address] documented as of this encounter Procedures Procedure Name Priority Date/Time Associated Diagnosis Comments SPECIMEN TO PATHOLOGY Routine 09/17/2021 12:16 PM EDT SPECIMEN TO PATHOLOGY Routine 09/17/2021 12:16 PM EDT SPECIMEN TO PATHOLOGY Routine 09/17/2021 12:16 PM EDT SPECIMEN TO PATHOLOGY Routine 09/17/2021 12:16 PM EDT SPECIMEN TO PATHOLOGY Routine 09/17/2021 12:16 PM EDT SURGICAL PATHOLOGY REPORT Routine 09/17/2021 11:59 AM EDT Colonoscopy, Biopsy ([id number]) 09/17/2021 11:24 AM EDT 1 year f/u with me please for colonoscopy - with chromoendoscopy Thanks COLONOSCOPY Routine 09/17/2021 11:11 AM EDT documented in this encounter Results * Specimen to Pathology (09/17/2021 12:16 PM EDT) AP Specimen 09/17/2021 12:1 6 PM EDT 09/17/2021 12:16 PM EDT Narrative [facility] - 09/17/2021 12:16 PM EDT Specimen requisition ordered. ??Separate Pathology report to follow Micah Dowling MD PATHOLOGY/CYTOLOGY O EVELIN Performing Organization Address [facility]/ZIP [place] [address] * Specimen to Pathology (09/17/2021 12:16 PM EDT) AP Specimen 09/17/2021 12:1 6 PM EDT 09/17/2021 12:16 PM EDT Narrative [facility] - 09/17/2021 12:16 PM EDT Specimen requisition ordered. ??Separate Pathology report to follow Micah Dowling MD PATHOLOGY/CYTOLOGY O EVELIN Performing Organization Address [facility]/ZIP Co de [place] [address] * Specimen to Pathology (09/17/2021 12:16 PM EDT) AP Specimen 09/17/2021 12:1 6 PM EDT 09/17/2021 12:16 PM EDT Narrative [facility] - 09/17/2021 12:16 PM EDT Specimen requisition ordered. ??Separate Pathology report to follow Micah Dowling MD PATHOLOGY/[place] [address] * Specimen to Pathology (09/17/2021 12:16 PM EDT) AP Specimen 09/17/2021 12:1 6 PM EDT 09/17/2021 12:16 PM EDT Narrative [facility] - 09/17/2021 12:16 PM EDT Specimen requisition ordered. ??Separate Pathology report to follow Micah Dowling MD PATHOLOGY/CYTOLOGY O EVELIN Performing Organization Address [facility]/[place] [address] * Specimen to Pathology (09/17/2021 12:16 PM EDT) AP Specimen 09/17/2021 12:1 6 PM EDT 09/17/2021 12:16 PM EDT Narrative [facility] - 09/17/2021 12:16 PM EDT Specimen requisition ordered. ??Separate Pathology report to follow Micah Dowling MD PATHOLOGY/CYTOLOGY O EVELIN Performing Organization Address [facility]/ZIP [place] [address] * Surgical Pathology Report (09/17/2021 11:59 AM EDT) Final Diagnosis [id number] ? Location: 4T; EA07; A The signing pathologist has (i) examined the relevant preparation(s) for the specimen(s) and (ii) rendered or confirmed the diagnosis(es). . ?Surgical Pathology DIAGNOSIS A - Directed descending colon biopsies, biopsy (Multiple): - ??Consistent with hyperplastic ??polyp. - ??There is no evidence of dysplasia. B - Direct sigmoid colon biopsies, biopsy (Multiple): - ??Consistent with hyperplastic ??polyp. - ??There is no evidence of dysplasia. C - Polyp at 30 cm, other: - ??Hyperplastic polyp. - ??There is no evidence of dysplasia. D - Direct biopsies around polyp at 30 cm, biopsy (Multiple): - Colonic mucosa with mild ?? architectural disarray, non-specific. - ??Multiple levels examined. E - Direct biopsies at 20 cm, biopsy (Multiple): - ??Consistent with hyperplastic ??polyp. - ??There is no evidence of dysplasia Electronically signed by: ?Shira GIRALDO PhD, [place] Verified: ??09/22/2021 11:31 ??Pathologist Performed at: ??-[facility] [facility], [place], [place] SPECIMEN(S) SUBMITTED A - Directed descending colon biopsies, biopsy (Multiple) B - Direct sigmoid colon biopsies, biopsy (Multiple) C - Polyp at 30 cm, other (1) D - Direct biopsies around polyp at 30 cm, biopsy (Multiple) E - Direct biopsies at 20 cm, biopsy (Multiple) CLINICAL INFORMATION UC surveillance SPECIMEN PROCESSING A - Labeled/Fixative: Directed descending colon biopsies, formalin. Quantity/Size: Single, 0.4 cm. Tissue Description: Soft, green-blue mucosal tissue. Sections/Processi ng: Submitted en toto ??in 1 cassette labeled A1. B - Labeled/Fixative: Direct sigmoid colon biopsies, formalin. Quantity/Size: Two, 0.3 and 0.5 cm. Tissue Description: Soft, green-mucosal tissues. Sections/Processi ng: Submitted en toto ??in 1 cassette labeled B1. C - Labeled/Fixative: Polyp at 30 cm, formalin. Quantity/Size: Single, 0.6 x 0.2 cm. . SPECIMEN PROCESSING Tissue Description: Soft, elongated, green-blue mucosal tissue. Sections/Processi ng: Submitted en toto ??in 1 cassette labeled C1. D - Labeled/Fixative: Direct biopsies around polyp at 30 cm, formalin. Quantity/Size: Two, 0.2 and 0.4 cm. Tissue Description: Soft, green-blue mucosal tissues. Sections/Processi ng: Submitted en toto ??in 1 cassette labeled D1. E - Labeled/Fixative: Direct biopsies at 20 cm, formalin. Quantity/Size: Three, 0.1-0.3 cm. Tissue Description: Soft, [id number]-[id number] mucosal tissues. Sections/Processi ng: Submitted en toto ??in 1 cassette labeled E1. ??shb 09/22/2021 11:31 AM EDT [facility] GI Biopsy 09/17/2021 11:5 9 AM EDT 09/17/2021 11:59 AM EDT GI Biopsy 09/17/2021 11:5 9 AM EDT 09/17/2021 11:59 AM EDT GI Biopsy 09/17/2021 11:5 9 AM EDT 09/17/2021 11:59 AM EDT GI Biopsy 09/17/2021 11:5 9 AM EDT 09/17/2021 11:59 AM EDT GI Biopsy 09/17/2021 11:5 9 AM EDT 09/17/2021 11:59 AM EDT Micah Dowling MD PATHOLOGY/CYTOLOGY O RDERAJOSE [facility] [place] [address] * COLONOSCOPY (09/17/2021 11:11 AM EDT) COLONOSCOPY [facility] Endoscopy Procedure Date: 09/17/2021 11:11 AM ? Patient Name: Mahamed Dale ? Date of : 1980 ? Age: 41 ? Order #: [id number] ? Instrument Name: [id number] ? Procedure: ? Colonoscopy Indications: ? High risk colon cancer ? 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 (previous visible dysplastic lesion ? removed completely) and PSC Patient Profile: ? This is a 41 year old male. 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 is taking azathioprine and ? mesalamine and is asymptomatic. Providers: ? Micah Dowling MD, Kirsten Redman ? Mali Matos MD: ?Adiel Mooney MD Medicines: ? Midazolam 5.5 mg IV, Fentanyl 200 ? micrograms IV, Ondansetron 4 mg IV Complications: ? No immediate complications. Procedure: ? The procedure, indications, ? benefits, [...] The terminal ileum appeared normal. ? No signs of active inflammation throughout the entire ? colon. ? Methylene blue used for chromoendoscopy. Directed ? biopsies taken in the descending colon, the sigmoid ? colon and the rectum of flat regions with a subtle ? pit-pattern abnormality. In the descending and ? sigmoid the entire lesion likely removed, but not the ? case in the rectum. There was a 4mm sessile polyp ? seen at 30cm. This was removed completely with a cold ? biopsy forceps and directed biopsies were taken ? around the polyp as there was a sublte pit-pattern ? abnormality. ? Moderate Sedation: ? I was present during the intraservice time as ? documented by the sedation RN. Impression: ?- Ulcerative colitis is in remission ? - Polyp removed at 30cm. ? - Methylene blue used for ? chromoendoscopy. Directed biopsies ? taken in the descending colon, ? sigmoid colon and around the polyp ? at 30cm. Recommendation: ?- Await pathology results. ? - Repeat colonoscopy in 1 year with ? h/o dysplasia and PSC. ? - Follow-up in IBD Clinic ? Attending Participation: ? I personally performed the entire procedure. ? _ Micah Dowling MD 09/17/2021 12:26:48 PM Number of Addenda: 0 Note Initiated On: 09/17/2021 11:11 AM PROVATION 09/17/2021 11:1 1 AM EDT Adiel Mooney MD GENERAL SURGICAL ORD ERABLES PROVATION documented in this encounter Visit Diagnoses Not on filedocumented in this encounter Active and Recently Administered Medications Times are shown in EDT. Scheduled Medication Order 09/15/2021 09/16/2021 09/17/2021 ondansetron (pf) (Zofran) (2 mg/mL) injection 4 mg (COMPLETED) 4 mg, Intravenous, ONCE, 1 dose, On Radhika 09/17/21 at 1145, Endoscopy (Day of Procedure) 1125 (Given - Provid er: Kirsten Matos RN)1145 (Due) PRN Medication Order 09/15/2021 09/16/2021 09/17/2021 fentaNYL (pf) (50 mcg/mL) multi-dose injection (CANCELED) ONCE PRN, Starting on Radhika 09/17/21 at 1126, Until Radhika 09/17/21 at 1456, Intra-Operative (Intra-Procedure), Routine 1126 (Given - Provid er: Kirsten Matos RN)1130 (Given - Provider: Kirsten Matos RN)1133 (Given - Provider: Kirsten Matos RN)1136 (Given - Provider: Kirsten Matos RN) midazolam (pf) (Versed) (1 mg/mL) multi-dose injection (CANCELED) ONCE PRN, Starting on Radhika 09/17/21 at 1127, Until Radhika 09/17/21 at 1456, Intra-Operative (Intra-Procedure), Routine 1127 (Given - Provid er: Kirsten Matos RN)1130 (Given - Provider: Kirsten Matos RN)1133 (Given - Provider: Kirsten Matos RN)1136 (Given - Provider: Kirsten Matos RN)1140 (Given - Provider: Kirsten Matos RN) documented in this encounter Care Teams Telephone Information Clerk Relationship Specialty Start Date End Date Adiel Mooney MD [facility] GENERAL [place] [address] PCP - General General Internal Medicine 09/20/18 documented as of this encounter
--- OUTSIDE RECORDS SUMMARY | 2024-02-12 14:15 | XMS_ITS | Encounter Summary ---
Author Organization [facility] [place] [address] Care Team Providers Care Hair Salon Manager Name Role Phone Adiel Mooney MD Primary Care Provider [phone] Reason for Visit * Reason Onset Date Comments Triage 05/27/2021 Encounter Details Date Type Department Care Team (Late st Contact Info) Description 05/27/2021 Telephone Internal Medicine at [address] [address] Adiel Mooney MD [facility] GENERAL [place] [address] Triage Social History Tobacco Use Types Packs/Day Years [...] place to sleep or slept in a detention (including now)? No 03/05/2021 Sex and Gender Information Value Date Recorded Sex Assigned at Male 03/31/2023 12:56 PM EST Gender Identity Male 03/31/2023 12:56 PM EST Sexual Orientation Straight 03/31/2023 12 :56 PM EST documented as of this encounter Miscellaneous Notes * Telephone Encounter - Larissa Rice - 05/27/2021 10:42 AM EST Message:Mahamed Dale tested positive for Covid-19 through Antigen test 05/27/21. Symptoms were first noticeable on 05/23/21 but tested negative. Mild symptoms as of today, just wanted to make Adiel Mooney MD aware because he is immunocompromised. Ask caller their first and last name and relationship to the patient:Mahamed Dale Best time to call back: any Ok to leave a message: y Ok to send my- message: y Offered Appointment: Declined telehealth unless Adiel Mooney MD feels it is needed. Agent suggested calling back to schedule apt or speak with nursing for worsening symptoms. MA/Nurse/[place] contacted via: Message: y Call: n Pager: n documented in this encounter Plan of Treatment Upcoming Encounters Date Type Department Care Team (Late st Contact Info) Description 02/13/2024 1:00 PM EDT Clinical Support Primary Care at [address] [phone] 03/12/2024 8:50 AM [place] [phone] Camilla Nava MD [facility] [place] [address] 03/20/2024 8:00 AM EST Office Visit [place] [phone] Camilla Nava MD [facility] [place] [address] documented as of this encounter Visit Diagnoses Not on filedocumented in this encounter Care Teams Hair Salon Manager Relationship Specialty Start Date End Date Adiel Mooney MD [facility] GENERAL [place] [address] PCP - General General Internal Medicine 09/20/18 documented as of this encounter
--- OUTSIDE RECORDS SUMMARY | 2024-02-12 14:15 | XMS_ITS | Encounter Summary ---
Author Organization [facility] [place] [address] Care Team Providers Care Student Ministry Pastor Name Role Phone Adiel Mooney MD Primary Care Provider [phone] Reason for Visit * Reason Comments Medication Refill Encounter Details Date Type Department Care Team (Late st Contact Info) Description 12/29/2020 Refill [place] [address] Camilla Nava MD [facility] [place] [address] Autoimmune hepatitis Social History Tobacco Use Types Packs/Day Years Used Date Smoking Tobacco: Never Smokeless Tobacco: Never Alcohol Use Standard Drinks/Week Comments No 0 (1 standard drink = 0.6 oz pur e alcohol) Sex and Gender Information Value Date Recorded Sex Assigned at Male 03/31/2023 12:56 PM EST Gender Identity Male 03/31/2023 12:56 PM EST Sexual Orientation Straight 03/31/2023 12 :56 PM EST documented as of this encounter Plan of Treatment Upcoming Encounters Date Type Department Care Team (Late st Contact Info) Description 02/13/2024 1:00 PM EDT Clinical Support Primary Care at [address] [phone] 03/12/2024 8:50 AM [place] [address] Camilla Nava MD [facility] [place] [place] [address] 03/20/2024 8:00 AM EST Office Visit [place] [address] Camilla Nava MD [facility] [place] [place] [address] documented as of this encounter Visit Diagnoses Diagnosis Autoimmune hepatitis documented in this encounter Care Teams Student Ministry Pastor Relationship Specialty Start Date End Date Adiel Mooney MD [facility] [place] [address] PCP - General General Internal Medicine 09/20/18 documented as of this encounter
--- OUTSIDE RECORDS SUMMARY | 2024-02-12 14:15 | XMS_ITS | Encounter Summary ---
Author Organization [facility] [place] [address] Care Team Providers Care Enrollment Advisor Name Role Phone Adiel Mooney MD Primary Care Provider Reason for Visit * Reason Onset Date Comments Medication Refill 05/27/2021 Encounter Details Date Type Department Care Team (Late st Contact Info) Description 05/27/2021 Refill [place] [address] Camilla Nava MD [facility] [place] [address] Autoimmune hepatitis Social History Tobacco Use Types [...] in a group home (including now)? No 03/05/2021 Sex and Gender Information Value Date Recorded Sex Assigned at Male 03/31/2023 12:56 PM EST Gender Identity Male 03/31/2023 12:56 PM EST Sexual Orientation Straight 03/31/2023 12 :56 PM EST documented as of this encounter Plan of Treatment Upcoming Encounters Date Type Department Care Team (Late st Contact Info) Description 02/13/2024 1:00 PM EDT Clinical Support Primary Care at [address] [phone] 03/12/2024 8:50 AM [place] [phone] Camilla Nava MD [facility] [place] [address] 03/20/2024 8:00 AM EST Office [place] [address] Camilla Nava MD [facility] [place] [address] documented as of this encounter Visit Diagnoses Diagnosis Autoimmune hepatitis documented in this encounter Care Teams Enrollment Advisor Relationship Specialty Start Date End Date Adiel Mooney MD [facility] GENERAL [place] [address] PCP - General General Internal Medicine 09/20/18 documented as of this encounter
--- OUTSIDE RECORDS SUMMARY | 2024-02-12 14:15 | XMS_ITS | Encounter Summary ---
Author Organization [facility] [place] [address] Care Team Providers Care Network Project Manager Name Role Phone Adiel Mooney MD Primary Care Provider [phone] Reason for Visit * Reason Onset Date Comments Medication Refill 04/15/2020 Encounter Details Date Type Department Care Team (Late st Contact Info) Description 04/15/2020 Refill Internal Medicine at [address] [address] Rosemary Zacarias CCMA Social History Tobacco Use Types Packs/Day Years [...] PM EDT Clinical Support Primary Care at [address] [phone] 03/12/2024 8:50 AM [place] [phone] Camilla Nava MD [facility] [place] [address] 03/20/2024 8:00 AM EST Office [place] [address] Camilla Nava MD [facility] [place] [address] documented as of this encounter Visit Diagnoses Not on filedocumented in this encounter Care Teams Network Project Manager Relationship Specialty Start Date End Date Adiel Mooney MD [facility] GENERAL [place] [address] PCP - General General Internal Medicine 09/20/18 documented as of this encounter
--- OUTSIDE RECORDS SUMMARY | 2024-02-12 14:15 | XMS_ITS | Encounter Summary ---
Author Organization [facility] [place] [address] Care Team Providers Care Group Captain Name Role Phone Adiel Mooney MD Primary Care Provider Reason for Visit * Auth/Cert Specialty Diagnoses / Procedures Referred By Contac t Referred To Contact Diagnoses 1 year f/u with me please for colonoscopy - with chromoendoscopy Thanks Procedures PRO COLONOSCOPY, DIAGNOSTIC COLONOSCOPY, DIAGNOSTIC Referral ID Status Reason Start Date Expiration Date Visits Re quested Visits Authorized [id number] 1 1 Encounter Details Date Type Department Care Team (Late st Contact Info) Description 09/17/2021 11:00 AM EDT - 09/17/2021 12:00 PM EDT Surgery [place] [address] Micah Dowling MD [facility] [place] [address] COLONOSCOPY FLEXIBLE, WITH BX (WRVU 3.56) Social [...] slept in a longterm (including now)? No 03/05/2021 Sex and Gender Information Value Date Recorded Sex Assigned at Male 03/31/2023 12:56 PM EST Gender Identity Male 03/31/2023 12:56 PM EST Sexual Orientation Straight 03/31/2023 12 :56 PM EST documented as of this encounter Last Filed Vital Signs Vital Sign Reading Time Taken Comments Blood Pressure 103/72 09/17/2021 12:00 PM EDT Pulse 72 09/17/2021 12:00 PM EDT Temperature 36.6 ??C (97.9 ??F) 09/17/2021 10:06 AM E DT Respiratory Rate 16 09/17/2021 12:00 PM EDT Oxygen Saturation 99% 09/17/2021 12:00 PM EDT Inhaled Oxygen Concentration - - [...] occurs, please contact your Doctor. Please call [phone] before 8pm Mon-Fri with problems, questions or concerns. If you call after 8pm or on weekends, call the Hospital at [phone] and ask to speak to the Asphalt Mixing Machine Operator senior insight manager international and the jigger operator will contact that person for you. When should you call for help? Call [phone] anytime you think you may need emergency [...] any problems. Where can you learn more? [facility] View your After Visit Summary and more online at [email or web address] If you would like to provide feedback about your hospital experience, please call the Office of Patient and Family Relations at . If you have received this After Visit Summary in error, please immediately return it in person to the department, or notify the [facility] Privacy Office by calling toll free at between the hours of 8AM and 5PM to arrange for our retrieval of the documents at no cost to you. Content Version: 12.2 ?? [id number] [employer]. Care instructions adapted under license by [facility]. If you have questions about a medical condition or this instruction, always ask your healthcare professional. [employer] disclaims any warranty or liability for your use of this information. documented in this encounter Medications at Time of Discharge Medication Sig Dispensed Refills Start Date End Date ondansetron (Zofran) 4 mg Tablet Take 1 tablet by mouth every 8 hours as needed for Nausea. 10 tablet 03/04/[address] (Shaila) 1.2 gram Tablet, Delayed Release (E.C.)Indications:Ulcer ative [...] Operative Note Patient Name: Mahamed Dale : [id number] MR#: [id number] Case Date: 09/17/2021 Surgeon: Surgeon(s) and Role: * Micah Dowling MD - Primary Procedure(s): COLONOSCOPY FLEXIBLE, WITH BX (WRVU 3.66) Please see Provation report for details. documented in this encounter Plan of Treatment Upcoming Encounters Date Type Department Care Team (Late st Contact Info) Description 02/13/2024 1:00 PM EDT Clinical Support Primary Care at [address] [address] 03/12/2024 8:50 AM [place] [phone] Camilla Nava MD [facility] [place] [address] 03/20/2024 8:00 AM EST Office Visit [place] [phone] Camilla Nava MD [facility] [place] [address] documented as of this encounter Procedures Procedure Name Priority Date/Time Associated Diagnosis Comments SPECIMEN TO PATHOLOGY Routine 09/17/2021 12:16 PM EDT SPECIMEN TO PATHOLOGY Routine 09/17/2021 12:16 PM EDT SPECIMEN TO PATHOLOGY Routine 09/17/2021 12:16 PM EDT SPECIMEN TO PATHOLOGY Routine 09/17/2021 12:16 PM EDT SPECIMEN TO PATHOLOGY Routine 09/17/2021 12:16 PM EDT SURGICAL PATHOLOGY REPORT Routine 09/17/2021 11:59 AM EDT Colonoscopy, Biopsy ([id number]) 09/17/2021 11:24 AM EDT 1 year f/u with me please for colonoscopy - with chromoendoscopy Thanks COLONOSCOPY Routine 09/17/2021 11:11 AM EDT documented in this encounter Results * Specimen to Pathology (09/17/2021 12:16 PM EDT) AP Specimen 09/17/2021 12:1 6 PM EDT 09/17/2021 12:16 PM EDT Narrative [facility] - 09/17/2021 12:16 PM EDT Specimen requisition ordered. ??Separate Pathology report to follow Micah Dowling MD PATHOLOGY/CYTOLOGY O EVELIN Performing Organization Address [facility]/ZIP Co de Phone Number [facility] [place] [place] [address] * Specimen to Pathology (09/17/2021 12:16 PM EDT) AP Specimen 09/17/2021 12:1 6 PM EDT 09/17/2021 12:16 PM EDT Narrative [facility] - 09/17/2021 12:16 PM EDT Specimen requisition ordered. ??Separate Pathology report to follow Micah Dowling MD PATHOLOGY/CYTOLOGY O EVELIN Performing Organization Address [facility]/State/[place] [address] * Specimen to Pathology (09/17/2021 12:16 PM EDT) AP Specimen 09/17/2021 12:1 6 PM EDT 09/17/2021 12:16 PM EDT Narrative [facility] - 09/17/2021 12:16 PM EDT Specimen requisition ordered. ??Separate Pathology report to follow Micah Dowling MD PATHOLOGY/CYTOLOGY O EVELIN Performing Organization Address [facility] [place] [address] * Specimen to Pathology (09/17/2021 12:16 PM EDT) AP Specimen 09/17/2021 12:1 6 PM EDT 09/17/2021 12:16 PM EDT Narrative [facility] - 09/17/2021 12:16 PM EDT Specimen requisition ordered. ??Separate Pathology report to follow Micah Dowling MD PATHOLOGY/CYTOLOGY O EVELIN Performing Organization Address [facility]/[place] [address] * Specimen to Pathology (09/17/2021 12:16 PM EDT) AP Specimen 09/17/2021 12:1 6 PM EDT 09/17/2021 12:16 PM EDT [facility] - 09/17/2021 12:16 PM EDT Specimen requisition ordered. ??Separate Pathology report to follow Micah Dowling MD PATHOLOGY/CYTOLOGY O EVELIN Performing Organization Address [facility]/[place] [address] * Surgical Pathology Report (09/17/2021 11:59 AM EDT) Final Diagnosis [id number] ? Location: 4T; EA07; A The signing [...] Sienna Verified: ??09/22/2021 11:31 ??Pathologist Performed at: ??-[facility] Dept. of Pathology, [place], [place] SPECIMEN(S) SUBMITTED A - Directed descending [...] Quantity/Size: Three, 0.1-0.3 cm. Tissue Description: Soft, [id number] mucosal tissues. Sections/Processi ng: Submitted en toto ??in 1 cassette labeled E1. ??shb 09/22/2021 11:31 AM EDT [facility] GI Biopsy 09/17/2021 11:5 9 AM EDT 09/17/2021 11:59 AM EDT GI Biopsy 09/17/2021 11:5 9 AM EDT 09/17/2021 11:59 AM EDT GI Biopsy 09/17/2021 11:5 9 AM EDT 09/17/2021 11:59 AM EDT GI Biopsy 09/17/2021 11:5 9 AM EDT 09/17/2021 11:59 AM EDT GI Biopsy 09/17/2021 11:5 9 AM EDT 09/17/2021 11:59 AM EDT Micah oDwling MD PATHOLOGY/CYTOLOGY O RDERABLES [facility] [place] [address] * COLONOSCOPY (09/17/2021 11:11 AM EDT) COLONOSCOPY [facility] Endoscopy Procedure Date: 09/17/2021 11:11 AM ? Patient Name: Mahamed Dale ? Date of : 1980 ? Age: 41 ? Order #: [id number] ? Instrument Name: [id number] ? Procedure: ? Colonoscopy Indications: ? High [...] Site fentaNYL (pf) (50 mcg/mL) multi-dose injection ONCE PRN, Starting on Radhika 09/17/21 at 1126, Until Radhika 09/17/21 at 1456, Intra-Operative (Intra-Procedure), Routine Given 09/17/2021 11:36 AM EDT 50 mcg Given 09/17/2021 11:33 AM EDT 50 mcg Given 09/17/2021 11:30 AM EDT 50 mcg midazolam (pf) (Versed) (1 mg/mL) multi-dose injection ONCE PRN, Starting on Radhika 09/17/21 at 1127, Until Radhika 09/17/21 at 1456, Intra-Operative (Intra-Procedure), Routine Given 09/17/2021 11:40 AM EDT 1 mg Given 09/17/2021 11:36 AM EDT 1 mg Given 09/17/2021 11:33 AM EDT 1 mg ondansetron (pf) (Zofran) (2 mg/mL) injection 4 mg 4 mg, Intravenous, ONCE, 1 dose, On Radhika 09/17/21 at 1145, Endoscopy (Day of Procedure) Given 09/17/2021 11: 25 AM EDT 4 mg documented in this encounter [...] Kirsten Matos RN)1130 (Given - Provider: Kirsten Matso RN)1133 (Given - Provider: Kirsten Matos RN)1136 (Given - Provider: Kirsten Matos RN)1140 (Given - Provider: Kirsten Matos RN) documented in this encounter Care Teams Group Captain Relationship Specialty Start Date End Date Adiel Mooney MD [facility] [place] [address] PCP - General General Internal Medicine 09/20/18 documented as of this encounter
--- OUTSIDE RECORDS SUMMARY | 2024-02-12 14:15 | XMS_ITS | Encounter Summary ---
Author Organization [facility] [place] [address] Care Team Providers Care Extractions Technician Name Role Phone Adiel Mooney MD Primary Care Provider [phone] Reason for Visit * Reason Comments Medication Refill Encounter Details Date Type Department Care Team (Late st Contact Info) Description 08/22/2021 Ref[place] [phone] Camilla Nava MD [facility] [place] [address] Ulcerative colitis without complications, unspecified location; Primary sclerosing cholangitis Social History Tobacco Use [...] place to sleep or slept in a custodial (including now)? No 03/05/2021 Sex and Gender Information Value Date Recorded Sex Assigned at Male 03/31/2023 12:56 PM EST Gender Identity Male 03/31/2023 12:56 PM EST Sexual Orientation Straight 03/31/2023 12 :56 PM EST documented as of this encounter Plan of Treatment Upcoming Encounters Date Type Department Care Team (Late st Contact Info) Description 02/13/2024 1:00 PM EDT Clinical Support Primary Care at [address] [address] 03/12/2024 8:50 AM [place] [phone] Camilla Nava MD [facility] [place] [address] 03/20/2024 8:00 AM EST Office [place] [phone] Camilla Nava MD [facility] [place] [address] documented as of this encounter Visit Diagnoses Diagnosis Ulcerative colitis without complications, unspecified location Primary sclerosing cholangitis Cholangitis documented in this encounter Care Teams Extractions Technician Relationship Specialty Start Date End Date Adiel Mooney MD [facility] [place] [address] PCP - General General Internal Medicine 09/20/18 documented as of this encounter
--- OUTSIDE RECORDS SUMMARY | 2024-02-12 14:15 | XMS_ITS | Encounter Summary ---
Author Organization [facility] [place] [address] Care Team Providers Care Grocery Checker Name Role Phone Adiel Mooney MD Primary Care Provider [phone] Reason for Visit * Reason Comments Medication Refill Encounter Details Date Type Department Care Team (Late st Contact Info) Description 11/17/2020 Ref[place] [phone] Camilla Nava MD [facility] [place] [address] Ulcerative colitis without complications, unspecified location; Primary [...] PM EDT Clinical Support Primary Care at [address] [phone] 03/12/2024 8:50 [place] [phone] Camilla Nava MD [facility] [place] [address] 03/20/2024 8:00 AM EST Office [place] [address] Camilla Nava MD [facility] [place] [address] documented as of this encounter Visit Diagnoses Diagnosis Ulcerative colitis without complications, unspecified location Primary sclerosing cholangitis Cholangitis documented in this encounter Care Teams Grocery Checker Relationship Specialty Start Date End Date Adiel oMoney MD [facility] [place] [address] PCP - General General Internal Medicine 09/20/18 documented as of this encounter
--- OUTSIDE RECORDS SUMMARY | 2024-02-12 14:15 | XMS_ITS | Encounter Summary ---
Author Organization [facility] [place] [address] Care Team Providers Care Returned Goods Inspector Name Role Phone Adiel Mooney MD Primary Care Provider [phone] Encounter Details Date Type Department Care Team (Late st Contact Info) Description 06/06/2020 Orders [place] [address] Harry Pittman MD [facility] [place] [address] Social History Tobacco Use Types Packs/Day Years [...] EDT Clinical Support Primary Care at [address] [phone] 03/12/2024 8:50 AM [place] [phone] Camilla Nava MD [facility] [place] [address] 03/20/2024 8:00 AM EST Office [place] [address] Camilla Nava MD [facility] [place] [address] documented as of this encounter Visit Diagnoses Not on filedocumented in this encounter Care Teams Returned Goods Inspector Relationship Specialty Start Date End Date Adiel Mooney MD [facility] [place] [address] PCP - General General Internal Medicine 09/20/18 documented as of this encounter
--- OUTSIDE RECORDS SUMMARY | 2024-02-12 14:15 | XMS_ITS | Encounter Summary ---
Author Organization [facility] [place] [address] Care Team Providers Care Service Order Taker Name Role Phone Adiel Mooney MD Primary Care Provider [phone] Reason for Visit * Reason Comments Medication Refill Encounter Details Date Type Department Care Team (Late st Contact Info) Description 02/18/2022 Refill [place] [phone] Camilla Nava MD [facility] [place] [address] Ulcerative colitis without complications, unspecified location; Primary [...] place to sleep or slept in a correction (including now)? No 03/05/2021 Sex and Gender Information Value Date Recorded Sex Assigned at Male 03/31/2023 12:56 PM EST Gender Identity Male 03/31/2023 12:56 PM EST Sexual Orientation Straight 03/31/2023 12 :56 PM EST documented as of this encounter Plan of Treatment Upcoming Encounters Date Type Department Care Team (Late st Contact Info) Description 02/13/2024 1:00 PM EDT Clinical Support Primary Care at [address] [address] 03/12/2024 8:50 AM [place] [phone] Camilla Nava MD [facility] [place] [address] 03/20/2024 8:00 AM EST Office [place] [phone] Camilla Nava MD [facility] [place] [address] documented as of this encounter Visit Diagnoses Diagnosis Ulcerative colitis without complications, unspecified location Primary sclerosing cholangitis Cholangitis documented in this encounter Care Teams Service Order Taker Relationship Specialty Start Date End Date Adiel Mooney MD [facility] [place] [address] PCP - General General Internal Medicine 09/20/18 documented as of this encounter
--- OUTSIDE RECORDS SUMMARY | 2024-02-12 14:15 | XMS_ITS | Encounter Summary ---
Author Organization [facility] [place] [address] Care Team Providers Care Customer Engagement Representative Name Role Phone Adiel Mooney MD Primary Care Provider [phone] Encounter Details Date Type Department Care Team (Latest Contact Info) Description 03/08/2022 12:50 PM EST Laboratory Appointment Lab [address] [place] [phone] Primary sclerosing cholangitis; Decreased bone density Social History Tobacco Use Types Packs/Day Years [...] EDT Clinical Support Primary Care at [address] [phone] 03/12/2024 8:50 AM EST [place] [address] Camilla Nava MD [facility] [place] [address] 03/20/2024 8:00 AM EST Office Visit [place] [phone] Camilla Nava MD [facility] [place] [address] documented as of this encounter Procedures Procedure Name Priority Date/Time Associated Diagnosis Comments PTH Routine 03/08/2022 12:43 PM EST HEMOGRAM Routine 03/08/2022 12:43 PM EST Primary sclerosing cholangitis DIFFERENTIAL, AUTOMATED Routine 03/08/2022 12:43 PM EST Primary sclerosing cholangitis HC VITAMIN D TOTAL-25 HYDROXY Routine 03/08/2022 12:43 PM EST Decreased bone density HC CBC,PLT & AUTO DIFF Routine 12:43 PM EST Primary sclerosing cholangitis COMPREHENSIVE METABOLIC PANEL Routine 03/08/2022 12:43 PM EST Primary sclerosing cholangitis documented in this encounter Results * PTH (03/08/2022 12:43 PM EST) Pathologist [facility] Parathyroid Hormone 47 15 - 65 pg/mL [facility] Blood Venous Draw / Unknown 03/08/2022 12:43 PM EST 03/09/2022 10:23 AM EST Narrative Resulting Agency Comment Spec In Lab Camilla Nava MD CHEMISTRY ORDERABLES [facility] [place] [address] * Differential, Automated (03/08/2022 12:43 PM EST) Pathologist [facility] Neutrophil % 68.1 % [facility] Neutrophil Absolute 4.53 1.70 - 6.10 x10(3)/[facility] Lymph % 22.6 % [facility] Lymphocytes Abs 1.5 0.9 - 3.2 x10(3)/[facility] Monocyte % 8.2 % [facility] Monocyte Abs 0.6 0.3 - 0.9 x10(3)/[facility] Eos % 0.4 % [facility] Eosinophils Abs 0.0 0.0 - 0.4 x10(3)/[facility] Basophil % 0.4 % [facility] Baso Absolute 0.0 0.0 - 0.1 x10(3)/[facility] Immature Gran % 0.30 % [facility] Comment: Immature granulocytes(IG's)percentage and absolute count will include metamyelocytes, myelocytes, and promyelocytes. Blood smears from CBCs yielding IG's will be scanned manually for concordance. If this scan disagrees with the automated IG or if promyelocytes are noted, a manual differential will be performed. Immature Gran Absolute 0.02 0.00 - 0.04 x10(3)/[facility] Blood 03/08/2022 12:4 3 PM EST 03/08/2022 12:54 PM EST Narrative Resulting Agency Comment Spec In Lab Camilla Nava MD HEMATOLOGY ORDERABLE S [facility] [place] [address] * (ABNORMAL) Hemogram (03/08/2022 12:43 PM EST) White Blood Cell 6.7 4.0 - 9.5 x10(3)/[facility] Red Blood Cell 4.98 4.58 - 5.54 x10(6)/[facility] Hemoglobin 16.2 13.7 - 16.5 g/dL [facility] Hematocrit 44.4 40.5 - 48.5 % [facility] Mean Cell Volume 89.2 82.9 - 93.1 fL [facility] Mean Cell Hemoglobin 32.5(H) 27.5 - 32.1 pg [facility] Mean Cell Hemoglobin Concentration 36.5(H) 32.0 - 35.7 g/dL [facility] Platelet 258 145 - 357 x10(3)/[facility] RDW Standard Deviation 41.8 36.0 - 45.0 fL [facility] RDW coefficient of variation 12.8 11.4 - 13.8 % [facility] Mean Platelet Volume 10.1 7.6 - 12.9 fL [facility] NRBC% auto 0.0 % [facility] NRBC Absolute 0.000 0.000 - 0.000 x10(3)/mc L [facility] Blood 03/08/2022 12:4 3 PM EST 03/08/2022 12:54 PM EST Narrative Resulting Agency Comment Spec In Lab Camilla Nava MD HEMATOLOGY ORDERABLE S Performing Organization Address City/[facility]/ZIP Co de Phone Number [facility] [place] [address] * Vitamin D, 25-Hydroxy (03/08/2022 12:43 PM EST) Vitamin D Total 25 OH 31 21 - 100 ng/mL [facility] Vit D Interp Sufficient [facility] Blood 03/08/2022 12:4 3 PM EST 03/08/2022 12:54 PM EST Narrative Resulting Agency Comment Spec In Lab Camilla Nava MD CHEMISTRY ORDERABLES Performing Organization Address City/[facility]/ZIP Co de Phone Number [facility] [place] [address] * Comprehensive metabolic panel (non-fasting) (03/08/2022 12:43 PM EST) Glucose 98 65 - 199 mg/dL [facility] Comment:Diabetes: >=200 mg/d L plus symptoms Blood Urea Nitrogen 10 10 - 20 mg/dL [facility] Creatinine 0.88 0.80 - 1.50 mg/dL [facility] Sodium 137 135 - 145 mmol/L [facility] Potassium 3.7 3.5 - 5.0 mmol/L [facility] Comment: Please note: ??Patients with WBC >100,000 may have falsely elevated Potassium levels. ??For accurate Potassium quantification in these patients send serum separator tube (gold top) for subsequent determinations. ??Contact the Clinical Chemistry Laboratory if there are any questions. Chloride 102 98 - 107 mmol/L [facility] Carbon Dioxide 25 22 - 31 mmol/L [facility] Anion Gap 10 5 - 15 mmol/L [facility] Calcium 9.7 8.5 - 10.5 mg/dL [facility] Protein, Total 7.9 6.1 - 8.0 g/dL [facility] Albumin 4.9 3.2 - 5.2 g/dL [facility] Aspartate Aminotransferase 21 0 - 39 unit/L [facility] Alanine Aminotransferase 20 0 - 55 unit/L [facility] Alkaline Phosphatase 104 40 - 130 unit/L [facility] Bilirubin, Total 0.5 0.2 - 1.3 mg/dL [facility] Est Glomerular Filtration Rate 110 >=60 mL/min/1. 73 m?? [facility] [...] and symptoms in addition to eGFR. Blood 03/08/2022 12:4 3 PM EST 03/08/2022 12:54 PM EST Narrative Resulting Agency Comment Spec In Lab Camilla Nava MD CHEMISTRY ORDERABLES [facility] [place] [address] documented in this encounter Visit Diagnoses Diagnosis Primary sclerosing cholangitis Cholangitis Decreased bone density Other disorders of bone and cartilage documented in this encounter Care Teams Customer Engagement Representative Relationship Specialty Start Date End Date Adiel Mooney MD [facility] [address] PCP - General General Internal Medicine 09/20/18 documented as of this encounter
--- OUTSIDE RECORDS SUMMARY | 2024-02-12 14:15 | XMS_ITS | Encounter Summary ---
Author Organization [facility]ly [facility] [place] [address] Care Team Providers Care Optical Technician Name Role Phone Adiel Mooney MD Primary Care Provider [phone] Encounter Details Date Type Department Care Team (Late st Contact Info) Description 08/12/2020 11:15 AM EDT - 08/12/2020 12:15 PM EDT [place] [address] Micah Dowling MD [facility] [address] COLONOSCOPY FLEXIBLE, WITH BX (WRVU 3.56) Social [...] Sign Reading Time Taken Comments Blood Pressure 108/70 08/12/2020 12:15 PM EDT Pulse 87 08/12/2020 12:15 PM EDT Temperature 36.9 ??C (98.4 ??F) 08/12/2020 10:21 AM E DT Respiratory Rate 18 08/12/2020 12:15 PM EDT Oxygen Saturation 99% 08/12/2020 12:15 PM EDT Inhaled Oxygen Concentration - - Weight - - Height - - Body Mass Index - - documented in this encounter Discharge Instructions * Discharge Instructions* Harry Farah RN - 08/12/2020 12:29 PM EDT Colonoscopy: What to Expect at [...] home? Activity Rest when you feel tired. ?? You can do your normal activities when it feels okay to do so. Diet ?? Follow your doctor's directions for eating. ?? Unless your doctor has told you not to, drink plenty of fluids. This helps to replace the fluidsthat were lost during the colon prep. ?? Do not drink alcohol. Medicines ?? Your doctor will tell you if and when you can restart your medicines. He or she will also give you instructions about taking any new medicines. ?? If you take blood thinners, such as warfarin (Coumadin), clopidogrel (Plavix), or aspirin, be sure to talk to your doctor. He or she will tell you if and when to start taking those medicines again. Make sure that you understand exactly what your doctor wants you to do. ?? If polyps were removed or a biopsy was done during the test, your doctor may tell you not to take aspirin or other anti-inflammatory medicines for a few days. These include ibuprofen (Advil, Motrin) and naproxen (Aleve). Other instructions ?? For your safety, do not drive or operate machinery until the medicine wears off and you can think clearly. Your doctor may tell you not to drive or operate machinery until the day after your test. ?? Do not sign legal documents or make major decisions until the medicine wears off and you can think clearly. The anesthesia can make it hard for you to fully understand what you are agreeing to. Additional Information for Sedation Patients For patients who received sedation: ?? You may have received medications before and/or during your procedure which effects your judgement and reaction time. ?? Do not drive, operate machinery, drink alcoholic beverages or make important decisions for 24 hours. ?? Be careful on stairs as you may be unsteady on your feet. ?? You may eat a regular diet as tolerated. ?? Do not smoke if you are alone. ?? IV site: Slight redness or tenderness is normal, you can use a warm compress if you would like. If tenderness and/or redness increase or if foul drainage occurs, please contact your Doctor. Please call [phone] before 8pm Mon-Fri with problems, questions or concerns. If you call after 8pm or on weekends, call the Hospital at [phone] and ask to speak to the Local Sales Manager political cartoonist and the grain drier operator will contact that person for you. When should you call for help? Call 529 anytime you think you may need emergency care. For example, call if: ?? You passed out (lost consciousness). ?? You pass maroon or bloody stools. ?? You have trouble breathing. Call your doctor now or seek immediate medical care if: ?? You have pain that does not get better after you take pain medicine. ?? You are sick to your stomach or cannot drink fluids. ?? You have new or worse belly pain. ?? You have blood in your stools. ?? You have a fever. ?? You cannot pass stools or gas. Watch closely for changes in your health, and be sure to contact your doctor if you have any problems. Where can you learn more? [facility] View your After Visit Summary and more online at [email or web address] If you would like to [...] cost to you. Content Version: 12.2 ?? [id number] [employer]. Care instructions adapted under license by [facility]. If you have questions about a medical condition or this instruction, always ask your healthcare professional. [employer] disclaims any warranty or liability for your use of this information. documented in this encounter Medications at Time of Discharge Medication Sig Dispensed Refills Start Date End Date ondansetron (Zofran) 4 mg Tablet Take 1 tablet by mouth every 8 hours as needed for Nausea. 10 tablet 03/04/2020 buPROPion XL (Wellbutrin XL) 300 mg Tablet Extended Release 24 hr Take 1 tablet by mouth every morning. 90 tablet 3 04/23/2020 03/05/2021 azaTHIOprine (Imuran) 50 mg TabletIndications:Autoi mmune hepatitis Take 2 tablets by mouth daily. 180 tablet 2 04/21/2020 12/30/[address] Jane) 1.2 gram Tablet, Delayed Release (E.C.)Indications:Ulcer ative colitis without complications, unspecified location TAKE 2 TABLET DAILY 180 tablet 2 02/28/2020 11/18/2020 ursodioL (Yoli-250) 250 mg TabletIndications:Prima ry sclerosing cholangitis TAKE 2 TABLETS 2 TIMES A DAY BY MOUTH 360 tablet 2 02/19/2020 11/18/2020 dextroamphetamine-amphe tamine (Adderall XR) 20 mg Capsule, Sust. Release 24 hr Take 1 capsule by mouth every morning. 30 capsule 02/05/2020 03/04/2021 folic acid (Folvite) 1 mg TabletIndications:Ulcer ative colitis without complications, unspecified location Take 1 tablet by mouth daily. 90 tablet 3 08/20/2019 08/22/2020 documented as of this encounter H&P Notes * Micah Dowling MD - 08/12/2020 11:30 AM EDT Patient Name: Mahamed Dale Patient Age: 40 y.o. Birthdate: 1980 Admit date: 08/12/2020 Attending Physician: Micah Dowling MD * Micah Dowling MD - 08/12/2020 11:15 AM EDT Patient Name: Mahamed Dale Patient Age: 40 y.o. Birthdate: 1980 Admit date: 08/12/2020 Attending Physician: Micah Dowling MD Gastroenterology and Hepatology Pre-Procedure History and Physical Exam Procedure: Colonoscopy: Indication: f/u for UC with dysplasia Patient Active Problem List Diagnosis Code ??? [...] Op Note - Micah Dowling MD - 08/12/2020 11:43 AM EDT [facility] Operative Note Patient Name: Mahamed Dale : [id number] MR#: [id number] Case Date: 08/12/2020 Surgeon: Surgeon(s) and Role: * Micah Dowling MD - Primary Preoperative diagnosis: [place] with chromo with Grant or Dowling please in May. 60 min. Mod consc sed. NEEDS MIRALAX PREP PLEASE. Postoperative diagnosis: * No post-op diagnosis entered * Procedure(s): COLONOSCOPY FLEXIBLE, WITH BX (WRVU 3.66) Please see Provation report for details. documented in this encounter Plan of Treatment Upcoming Encounters Date Type Department Care Team (Late st Contact Info) Description 02/13/2024 1:00 PM EDT Clinical Support Primary Care at [address] [address] 03/12/2024 8:50 AM [place] [phone] Camilla Nava MD [facility] [place] [address] 03/20/2024 8:00 AM EST Office [place] [phone] Camilla Nava MD [facility] [place] [address] documented as of this encounter Procedures Procedure Name Priority Date/Time Associated Diagnosis Comments SPECIMEN TO PATHOLOGY Routine 08/12/2020 12:25 PM EDT SPECIMEN TO PATHOLOGY Routine 08/12/2020 12:25 PM EDT SPECIMEN TO PATHOLOGY Routine 08/12/2020 12:25 PM EDT SURGICAL PATHOLOGY REPORT Routine 08/12/2020 12:00 PM EDT Colonoscopy, Biopsy ([id number]) 08/12/2020 11:27 AM EDT [place] with chromo with Grant or Dowling please in May. 60 min. Mod consc sed. NEEDS MIRALAX PREP PLEASE. COLONOSCOPY Routine 08/12/2020 11:22 AM EDT documented in this encounter Results * Specimen to Pathology (08/12/2020 12:25 PM EDT) AP Specimen 08/12/2020 12:2 5 PM EDT 08/12/2020 12:25 PM EDT Narrative [facility] - 08/12/2020 12:25 PM EDT Specimen requisition ordered. ??Separate Pathology report to follow Micah Dowling MD PATHOLOGY/CYTOLOGY O RDKAYODE Performing Organization Address City/[facility]/[place] [address] * Specimen to Pathology (08/12/2020 12:25 PM EDT) AP Specimen 08/12/2020 12:2 5 PM EDT 08/12/2020 12:25 PM EDT Narrative [facility] - 08/12/2020 12:25 PM EDT Specimen requisition ordered. ??Separate Pathology report to follow Micah Dowling MD PATHOLOGY/CYTOLOGY O EVELIN Performing Organization Address [facility] [place] [address] * Specimen to Pathology (08/12/2020 12:25 PM EDT) AP Specimen 08/12/2020 12:2 5 PM EDT 08/12/2020 12:25 PM EDT Narrative [facility] - 08/12/2020 12:25 PM EDT Specimen requisition ordered. ??Separate Pathology report to follow Micah Dowling MD PATHOLOGY/CYTOLOGY O RDERAJOSE Performing Organization Address [facility] [place] [address] * Surgical Pathology Report (08/12/2020 12:00 PM EDT) Final Diagnosis [id number] ? Location: 4T; EA07; A The signing pathologist has (i) examined the relevant preparation(s) for the specimen(s) and (ii) rendered or confirmed the diagnosis(es). . ?Surgical Pathology DIAGNOSIS A - Directed ascending colon, ?? biopsy; Colonic mucosa with mild crypt architectural disarray and single crypt abscess. There is no evidence of dysplasia. B - Directed transverse colon, biopsy; Colonic mucosa with mild crypt architectural disarray. There is no evidence of dysplasia. C - Directed descending colon, biopsy: Colonic mucosa within normal limits. There is no evidence of dysplasia. CR-PX Electronically signed by: ?Siri Shultz MD Verified: ??08/17/2020 14:42 ??Pathologist Performed at: ??-[facility] Dept. of Pathology, [place], [place] SPECIMEN(S) SUBMITTED A - directed ascending colon biopsies, biopsy (4) B - directed transverse colon biopsies, biopsy (4) C - directed descending colon biopsies, biopsy (2) CLINICAL INFORMATION History of ulcerative colitis with dysplasia. Chromoendoscopy SPECIMEN PROCESSING A - Labeled/Fixative: Directed ascending colon biopsies, formalin. Quantity/Size: Six, 0.1-0.3 cm. Tissue Description: Soft, blue-stained tissues. Sections/Processin g: Submitted en toto ??in 2 cassettes labeled A1-A2. B - Labeled/Fixative: Directed transverse colon biopsies, formalin. Quantity/Size: Five, 0.2-0.3 cm. Tissue Description: Soft, blue-stained tissues. Sections/Processin g: Submitted en toto ??in 1 cassette labeled B1. C - Labeled/Fixative: Directed descending colon biopsies, formalin. Quantity/Size: Two, 0.2-0.3 cm. Tissue Description: Soft, blue-stained tissues. Sections/Processin g: Submitted en toto ??in 1 cassette labeled C1. ??chelsea 08/17/2020 2:42 PM EDT [facility] GI Biopsy 08/12/2020 12:0 0 PM EDT 08/12/2020 12:00 PM EDT GI Biopsy 08/12/2020 12:0 0 PM EDT 08/12/2020 12:00 PM EDT GI Biopsy 08/12/2020 12:0 0 PM EDT 08/12/2020 12:00 PM EDT Micah Dowling MD PATHOLOGY/CYTOLOGY O RDERABLES Performing Organization Address [facility]/State/ZIP Co de Phone Number [facility] [place] [address] * COLONOSCOPY (08/12/2020 11:22 AM EDT) COLONOSCOPY [facility] ___ Procedure Date: 08/12/2020 11:22 AM ? Patient Name: Mahamed Dale ? N: [id number] ? Date of : 1980 ? Age: 40 ? Order #: [id number] ? Instrument Name: [id number] ? ___ Procedure: ? Colonoscopy Indications: ? High risk colon cancer surveillance: ? Ulcerative colitis Patient Profile: ? This is a 40 year old male. This ? patient has ulcerative pancolitis and ? is taking azathioprine and mesalamine. Providers: ? Micah Dowling MD, Bucky Reyes ? Liana Ferrer, Protohistorian Referring MD: ?Adiel Mooney MD, Camilla Nava MD Medicines: ? Midazolam 6 mg IV, Fentanyl 250 ? micrograms IV, Ondansetron 4 mg IV Complications: ? No immediate complications. ___ Procedure: ? The procedure, indications, benefits, ? risks and alternatives were explained ? to the patient. Specifically ? discussed were potential ? complications including, but not ? limited to, bleeding, perforation, ? infection, missing a cancer, and ? adverse medication reactions. The ? patient was placed in the left ? lateral decubitus position, and a ? digital rectal exam was performed. ? The Colonoscope was inserted in the ? anus and under direct visualization, ? advanced to 10 cm into the ileum. ? Careful inspection was made as the ? colonoscope was withdrawn. The ? colonoscopy was performed without ? difficulty. The patient tolerated the ? procedure well. The quality of the ? bowel preparation was excellent. ? Findings: ? The perianal and digital rectal examinations were ? normal. ? The terminal ileum appeared normal. ? The entire examined colon appeared normal without ? signs of active inflammation. Methylene blue was used ? for chromoendoscopy. Biopsies were obtained with cold ? forceps for surveillance in a targeted manner in the ? descending colon, in the transverse colon and in the ? ascending colon. Only subtle pit pattern changes ? seen, no discreet polyps or high-risk lesions ? identified. Targeteted regions completely removed. ? Moderate Sedation: ? I was present during the intraservice time as ? documented by the sedation RN. Impression: ?Ulcerative colitis is in remission. ? Chromoendoscopy performed, focusing ? on area(s) with prior dysplasia. Only ? subtle changes seen - directed ? biopsies taken. Recommendation: ?- Await pathology results. ? - Repeat colonoscopy interval to be ? determined after review of pathology. ? - Follow-up in GI Clinic ? Attending Participation: ? I personally performed the entire procedure. ? Micah Dowling MD 08/12/2020 12:34:29 PM Number of Addenda: 0 Note Initiated On: 08/12/2020 11:22 AM PROVATION 08/12/2020 11:2 2 AM EDT Adiel Mooney MD GENERAL SURGICAL ORD ERABLES PROVATION documented in this encounter Visit Diagnoses Not on filedocumented in this encounter Administered Medications Inactive Administered Medications - up to 3 most recent administrations Medication Order MAR Action Action Date Dose Rate Site fentaNYL (pf) (50 mcg/mL) multi-dose injection ONCE PRN, Starting on Tue08/12/20 at 1132, Until Tue08/12/20 at 1510, Intra-Operative (Intra-Procedure), Routine Given 08/12/2020 11:44 AM EDT 50 mcg Given 08/12/2020 11:41 AM EDT 50 mcg Given 08/12/2020 11:38 AM EDT 50 mcg midazolam (pf) (Versed) (1 mg/mL) multi-dose injection ONCE PRN, Starting on Tue08/12/20 at 1132, Until Tue08/12/20 at 1510, Intra-Operative (Intra-Procedure), Routine Given 08/12/2020 11:48 AM EDT 1 mg Given 08/12/2020 11:44 AM EDT 1 mg Given 08/12/2020 11:41 AM EDT 1 mg ondansetron (pf) (Zofran) (2 mg/mL) injection 4 mg 4 mg, Intravenous, ONCE, 1 dose, On e 08/12/20 at 1200, Endoscopy (Intra-Procedure) Given 08/12/2020 11:32 AM EDT 4 mg documented in this encounter Active and Recently Administered Medications Times are shown in EDT. Scheduled Medication Order 08/10/2020 08/11/2020 08/12/2020 ondansetron (pf) (Zofran) (2 mg/mL) injection 4 mg (COMPLETED) 4 mg, Intravenous, ONCE, 1 dose, On Tue08/12/20 at 1200, Endoscopy (Intra-Procedure) 1132 (Given - Provid er: Dian Brandon RN)1200 (Due) PRN Medication Order 08/10/2020 08/11/2020 08/12/2020 fentaNYL (pf) (50 mcg/mL) multi-dose injection (CANCELED) ONCE PRN, Starting on Tue08/12/20 at 1132, Until Tue08/12/20 at 1510, Intra-Operative (Intra-Procedure), Routine 1132 (Given - Provid er: Dian Brandon RN)1135 (Given - Provider: Dian Brandon RN)1138 (Given - Provider: Dian Brandon RN)1141 (Given - Provider: Dian Brandon RN)1144 (Given - Provider: Dian Brandon RN) midazolam (pf) (Versed) (1 mg/mL) multi-dose injection (CANCELED) ONCE PRN, Starting on Tue08/12/20 at 1132, Until Tue08/12/20 at 1510, Intra-Operative (Intra-Procedure), Routine 1132 (Given - Provid er: Dian Brandon RN)1135 (Given - Provider: Dian Brandon RN)1138 (Given - Provider: Dian Brandon RN)1141 (Given - Provider: Dian Brandon RN)1144 (Given - Provider: Dian Brandon RN)1148 (Given - Provider: Dian Brandon RN) documented in this encounter Care Teams Optical Technician Relationship Specialty Start Date End Date Adiel Mooney MD [facility] [place] [address] PCP - General General Internal Medicine 09/20/18 documented as of this encounter
--- OUTSIDE RECORDS SUMMARY | 2024-02-12 14:15 | XMS_ITS | Encounter Summary ---
Author Organization [facility] [place] [address] Care Team Providers Care Shingle Cutter Name Role Phone Adiel Mooney MD Primary Care Provider [phone] Reason for Visit * Reason Onset Date Comments Medication Refill 08/24/2021 Encounter Details Date Type Department Care Team (Late st Contact Info) Description 08/24/2021 Refill [place] [address] Camilla Nava MD [facility] [place] [address] Ulcerative colitis without complications, unspecified location; Primary [...] place to sleep or slept in a retirement (including now)? No 03/05/2021 Sex and Gender [...] EDT Clinical Support Primary Care at [address] [address] 03/12/2024 8:50 AM [place] [phone] Camilla Nava MD [facility] [place] [address] 03/20/2024 8:00 AM EST Office [place] [phone] Camilla Nava MD [facility] [place] [address] documented as of this encounter Visit Diagnoses Diagnosis Ulcerative colitis without complications, unspecified location Primary sclerosing cholangitis Cholangitis documented in this encounter Care Teams Shingle Cutter Relationship Specialty Start Date End Date Adiel Mooney MD [facility] [place] [address] PCP - General General Internal Medicine 09/20/18 documented as of this encounter
--- OUTSIDE RECORDS SUMMARY | 2024-02-12 14:15 | XMS_ITS | Encounter Summary ---
Author Organization [facility]ly [facility] [place] [address] Care Team Providers Care Auto Bumper Straightener Name Role Phone Adiel Mooney MD Primary Care Provider [phone] Reason for Visit * Reason Onset Date Comments Medication Refill 04/16/2020 Encounter Details Date Type Department Care Team (Late st Contact Info) Description 04/16/2020 Ref[place] [phone] Camilla Nava MD [facility] [address] Autoimmune hepatitis Social History Tobacco Use Types [...] PM EDT Clinical Support Primary Care at [address] [phone] 03/12/2024 8:50 AM [place] [phone] Camilla Nava MD [facility] [place] [address] 03/20/2024 8:00 AM EST Office [place] [address] Camilla Nava MD [facility] [place] [address] documented as of this encounter Visit Diagnoses Diagnosis Autoimmune hepatitis documented in this encounter Care Teams Auto Bumper Straightener Relationship Specialty Start Date End Date Adiel Mooney MD [facility] GENERAL INTERNAL [place] [address] PCP - General General Internal Medicine 09/20/18 documented as of this encounter
--- OUTSIDE RECORDS SUMMARY | 2024-02-12 14:15 | XMS_ITS | Encounter Summary ---
Author Organization [facility] [place] [address] Care Team Providers Care Breast Worker Name Role Phone Adiel Mooney MD Primary Care Provider [phone] Reason for Visit * Reason Comments Medication Refill Encounter Details Date Type Department Care Team (Late st Contact Info) Description 12/22/2021 Ref[place] [phone] Camilla Nava MD [facility] [place] [address] Autoimmune hepatitis Social History Tobacco Use Types [...] slept in a jail (including now)? No 03/05/2021 Sex and Gender Information Value Date Recorded Sex Assigned at Male 03/31/2023 12:56 PM EST Gender Identity Male 03/31/2023 12:56 PM EST Sexual Orientation Straight 03/31/2023 12 :56 PM EST documented as of this encounter Plan of Treatment Upcoming Encounters Date Type Department Care Team (Late st Contact Info) Description 02/13/2024 1:00 PM EDT Clinical Support Primary Care at [address] [phone] 03/12/2024 8:50 AM [place] [address] Camilla Nava MD [facility] [place] [address] 03/20/2024 8:00 AM EST Office [place] [phone] Camilla Nava MD [facility] [place] [address] documented as of this encounter Visit Diagnoses Diagnosis Autoimmune hepatitis documented in this encounter Care Teams Breast Worker Relationship Specialty Start Date End Date Adiel Mooney MD [facility] GENER[facility] [place] [address] PCP - General General Internal Medicine 09/20/18 documented as of this encounter
--- OUTSIDE RECORDS SUMMARY | 2024-02-12 14:15 | XMS_ITS | Encounter Summary ---
Author Organization Formerly [facility] Anjelica mcduffie [place] [id number] Care Team Providers Care Channel Partners Name Role Phone Adiel Mooney MD Primary Care Provider [phone] Reason for Referral * Diagnostic Test (Routine) - Closed Specialty Diagnoses / Procedures Referred By Contac t Referred To Contact Radiology Diagnoses Sclerosing cholangitis Procedures DXA Central Spine, Hip, and/or Whole Body (Generic) Camilla Nava MD [facility] [place] [address] [facility] [address] [place] [address] [place] [address] Referral ID Status Reason Start Date Expiration Date V isits Requested Visits Authorized [id number] Closed Specialty Service Requested 03/11/2021 09/08/2022 1 1 Reason for Visit * Diagnostic Test (Routine) - Closed Specialty Diagnoses / Procedures Referred By Contac t Referred To Contact Radiology Diagnoses Sclerosing cholangitis Procedures DXA Central Spine, Hip, and/or Whole Body (Generic) Camilla Nava MD [facility] [address] [facility] [address] [place] [address] [place] [address] Referral ID Status Reason Start Date Expiration Date V isits Requested Visits Authorized [id number] Closed Specialty Service Requested 03/11/2021 09/08/2022 1 1 Encounter Details Date Type Department Care Team (Latest Contact Info) Description 05/06/2021 2:49 PM EST - 05/06/2021 11:59 PM EST Hospital Encounter XRay at [facility] 1 [facility] [place] [address] Camilla Nava MD [facility] [place] [address] Sclerosing cholangitis Discharge Disposition: Home Social History Tobacco [...] in a long term (including now)? No 03/05/2021 Sex and Gender [...] 10 tablet 03/04/2020 azaTHIOprine (Imuran) 50 mg TabletIndications:Autoi mmune hepatitis TAKE 2 TABLETS DAILY 60 tablet 5 12/30/2020 05/27/2021 mesalamine (Shaila) 1.2 gram Tablet, Delayed Release (E.C.)Indications:Ulcer ative colitis without complications, unspecified location TAKE 2 TABLET DAILY 180 tablet 2 11/18/2020 08/24/2021 ursodioL (Yoli-250) 250 mg TabletIndications:Prima ry sclerosing cholangitis TAKE 2 TABLETS 2 TIMES A DAY BY MOUTH 360 tablet 2 11/18/2020 08/24/2021 folic acid (Folvite) 1 mg TabletIndications:Ulcer ative colitis without complications, unspecified location TAKE 1 TABLET BY MOUTH EVERY DAY 90 tablet 3 08/22/2020 08/24/2021 documented as of this encounter Plan of Treatment Upcoming Encounters Date Type Department Care Team (Late st Contact Info) Description 02/13/2024 1:00 PM EDT Clinical Support Primary Care at [address] [phone] 03/12/2024 8:50 AM [place] [phone] Camilla Nava MD [facility] [place] [address] 03/20/2024 8:00 AM EST Office Visit [place] [phone] Camilla Nava MD [facility] [place] [address] documented as of this encounter Procedures Procedure Name Priority Date/Time Associated Diagnosis Comments DXA CENTRAL SPINE, HIP, AND/OR WHOLE BODY (GENERIC) Routine 05/06/2021 3:19 PM EST Sclerosing cholangitis documented in this encounter Results * DXA Central Spine, Hip, and/or Whole Body (Generic) (05/06/2021 3:19 PM EST) Anatomical Region Laterality Modality C-spine, Hip N/A Other Impressions 05/06/2021 3:36 PM EST The measurements fulfill the WHO classification for low bone mass or osteopenia. The fracture risks are increased. The bone density raw data are listed below. Bone density raw data: Region ? BMD ?T-score ??Z-score ? AP Spine(L1, L3, L4) ? 0.904 ?? -1.4 ? -1.6 ? Femoral Neck (Left) ?0.716 ?? -1.2 ? -1.0 ? Total Hip (Left) ? 0.959 ?0.1 ? -0.3 ? World Health Organization criteria for BMD impression classify patients as: Normal (T-score at or above -1.0), Osteopenia (T-score between -1.0 and -2.5), or Osteoporosis (T-score at or below -2.5). Estimating Fracture Risk: The relationship between bone mineral density (BMD) and risk of fracture is well established. As BMD decreases, risk increases. Quantifying risk is difficult and is usually limited to estimation of the relative risk - a term which may have limited value when trying to discuss an individual's risk. Estimating the absolute risk for a patient requires an understanding of the incidence rate in a given population and consideration of multiple, partially independent, risk factors in addition to BMD. The World Health Organization (WHO) has developed a fracture risk prediction tool that calculates a ten-year risk of major osteoporotic fracture based on femoral neck bone density measurements and nine clinical risk factors for individuals who have not been treated for osteoporosis. This is available through an interactive web-based interface (http://www.shef.ac.uk/FRAX/) and can be used to estimate a given patient's absolute risk of major osteoporotic fracture or hip fracture over the next 10 years. These estimates may prove useful when discussing risk with a patient. It is important, however, to understand the tool's limitations and how a given individual's risk might differ from the tool's estimate. The tool does not take into account the dose-response associated with most risk factors. For example, the significant increase in risk associated with multiple prior fractures compared to a single prior fracture is not taken into account. Similarly, the location of a previous fracture, the amount of glucocorticoids and number of cigarettes smoked are not considered. These limitations are discussed in a Frequently Asked Questions section of the FRAX website which you are encouraged to review. ? Thank you for letting us participate in the care of this patient. ??If you are a health care provider and have any questions regarding this report, please contact the number below. ??For patients who have questions please contact the health senior care assistant that requested your imaging first. ? Narrative 05/06/2021 3:36 PM EST EXAMINATION: DXA SPINE HIP AND OR WHOLE BODY CLINICAL HISTORY: , ,entered by ordering service TECHNIQUE: Scans were acquired at the lumbar spine, and left hip. L2 measurement is excluded because this measurement is over 1 standard deviation different than adjacent vertebrae. COMPARISON: None FINDINGS: Lowest T-score at a diagnostic region of interest: T-score: -1.4, PETRA: Lumbar spine, WHO diagnosis: low bone mass or osteopoenia. Procedure Note Mariam Raines MD - 05/08/2021 EXAMINATION: DXA SPINE HIP AND OR WHOLE BODY CLINICAL HISTORY: , ,entered by ordering service TECHNIQUE: Scans were acquired at the lumbar spine, and left hip. L2 measurement is excluded because this measurement is over 1 standarddeviation different than adjacent vertebrae. COMPARISON: None FINDINGS: Lowest T-score at a diagnostic region of interest: T-score: -1.4, PETRA: Lumbar spine, WHO diagnosis: low bone mass orosteopoenia. IMPRESSION The measurements fulfill the WHO classification for low bone mass orosteopenia. The fracture risks are increased. The bone density raw data are listed below. Bone density raw data: Region BMD T-score Z-score AP Spine(L1, L3, L4) 0.904 -1.4 -1.6 Femoral Neck (Left) 0.716 -1.2 -1.0 Total Hip (Left) 0.959 0.1 -0.3 World Health Organization criteria for BMD impression classify patients as: Normal (T-score at or above -1.0), Osteopenia (T-score between -1.0 and -2.5), or Osteoporosis (T-score at or below -2.5). Estimating Fracture Risk: The relationship between bone mineral density (BMD) and risk of fractureis well established. As BMD decreases, risk increases. Quantifying risk isdifficult and is usually limited to estimation of the relative risk - a term which mayhave limited value when trying to discuss an individual's risk. Estimatingthe absolute risk for a patient requires an understanding of the incidencerate in a given population and consideration of multiple, partially independent,risk factors in addition to BMD. The World Health Organization (WHO) has developed a fracture riskprediction tool that calculates a ten-year risk of major osteoporotic fracture basedon femoral neck bone density measurements and nine clinical risk factorsfor individuals who have not been treated for osteoporosis. This isavailable through an interactive web-based interface (http://www.shef.ac.uk/FRAX/)and can be used to estimate a given patient's absolute risk of majorosteoporotic fracture or hip fracture over the next 10 years. These estimates mayprove useful when discussing risk with a patient. It is important, however, to understand the tool's limitations and how a given individual's risk mightdiffer from the tool's estimate. The tool does not take into account thedose-response associated with most risk factors. For example, the significant increasein risk associated with multiple prior fractures compared to a single priorfracture is not taken into account. Similarly, the location of a previous fracture,the amount of glucocorticoids and number of cigarettes smoked are notconsidered. These limitations are discussed in a Frequently Asked Questions sectionof the FRAX website which you are encouraged to review. ? Thank you for letting us participate in the care of this patient. If youare a health care provider and have any questions regarding this report,please contact the number below. For patients who have questions please contactthe health senior care assistant that requested your imaging first. Camilla Nava MD IMG DEXA ORDERABLES documented in this encounter Visit Diagnoses Diagnosis Sclerosing cholangitis Cholangitis documented in this encounter Care Teams Channel Partners Relationship Specialty Start Date End Date Adiel Mooney MD [facility] [place] [address] PCP - General General Internal Medicine 09/20/18 documented as of this encounter
--- OUTSIDE RECORDS SUMMARY | 2024-02-12 14:15 | XMS_ITS | Encounter Summary ---
Author Organization [facility] [place] [address] Care Team Providers Care Winchman/Crane Operator Name Role Phone Adiel Monoey MD Primary Care Provider [phone] Reason for Referral * Diagnostic Test (Routine) - Closed Specialty Diagnoses / Procedures Referred By Contac t Referred To Contact Radiology Diagnoses Primary sclerosing cholangitis Procedures MRI Cholangiopancreatography wwo Contrast PRG 3D INTERP&RPT W IMAGE PROCES CNCRNT SPRVSN NOT REQ INDPNDT WRKST PRG MRI ABDOMEN W/O&W CONTRAST Laz Longorai MD [facility] [place] [address] [facility] [address] Referral ID Status Reason Start Date Expiration Date V isits Requested Visits Authorized [id number] Closed Specialty Service Requested 01/15/2022 07/14/2022 1 1 * Diagnostic Test (Routine) - Closed Specialty Diagnoses / Procedures Referred By Contac t Referred To Contact Radiology Diagnoses Sclerosing cholangitis Procedures DXA Central Spine, Hip, and/or Whole Body (Generic) Laz Longoria MD [facility] [place] [address] [facility] X[facility] [address] [place] [address] [place] [address] Referral ID Status Reason Start Date Expiration Date V isits Requested Visits Authorized [id number] Closed Specialty Service Requested 03/11/2021 09/08/2022 1 1 Encounter Details Date Type Department Care Team (Late st Contact Info) Description 03/11/2021 1:00 PM EST Office [place] [address] Laz Lonogria MD [facility] [place] [address] Sclerosing cholangitis; Primary sclerosing cholangitis Social History Tobacco Use [...] Sign Reading Time Taken Comments Blood Pressure 136/77 03/11/2021 1:07 PM EST Pulse 93 03/11/2021 1:07 PM EST Temperature - - Respiratory Rate - - Oxygen Saturation - - Inhaled Oxygen Concentration - - Weight 82.6 kg (182 lb 3.2 oz) 03/11/2021 1:07 P M EST Height 183.5 cm (6' 0.24) 03/11/2021 1:07 PM ES T Body Mass Index 24.55 03/11/2021 1:07 PM EST documented in this encounter Progress Notes * Laz Longoria MD - 03/11/2021 1:00 PM EST Gastoenterology & Hepatology Follow Up [...] 03/14/20: 6.9 Kp; 25% IQR; F0 fibrosis Liver biopsy September 2016: DIAGNOSIS Liver tissue, ??biopsy: - The biopsy shows patchy portal and focal lobular foci of chronic inflammation. ??Bile ducts show moderate damage. There is ductular reaction, but no evidence ??of ductopenia. Trichrome stain highlights mild to moderate portal fibrosis with ??periductal concentric accentuarion in some portal tracts. Focal bridging fibrosis ??cannot be excluded. In comparison to -, there is increase in portal ??inflammation and fibrosis. There are no features suggestive of autoimmune hepatitis ??in this biopsy, however the findings are compatible with chronic cholangiopathy, ??stage 2 or 2-3/4. 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 Ulcerative colitis quiescent but was likely pancolitis diagnosed 1994, 1 major flare 2000 treated with prednisone maintained on asacol 1600mg bid folic acid aza (for AIH) Last colonoscopy07/2020- Dr. Grant- low grade dysplasia Medications: Outpatient Medications Marked as Taking for the 03/11/21 encounter (Office Visit) with Laz Longoria MD Medication Sig Dispense Refill ??? azaTHIOprine (Imuran) 50 mg Tablet TAKE 2 TABLETS DAILY 60 tablet 5 ??? mesalamine (Shaila) 1.2 gram Tablet, Delayed Release (E.C.) TAKE 2 TABLET DAILY 180 tablet 2 ??? ursodioL (Yoli-250) 250 mg Tablet TAKE 2 TABLETS 2 TIMES A DAY BY MOUTH 360 tablet 2 ??? folic acid (Folvite) 1 mg Tablet [...] Rash Interval History: Mahamed Dale is a 40 y.o. male who presents for follow up of autoimmune hepatitis/PSC overlap syndrome. Bowels are unchanged. BM once a day or less, no blood. Soft stools. Weight is stable. VITAL SIGNS BP 136/77 (BP Location (NBP): Left arm, Patient Position: Sitting, BP Cuff Sizes: Adult (25-34 cm)) Pulse 93 Ht 183.5 cm (6' 0.24) Wt 82.6 kg (182 lb 3.2 oz) BMI 24.55 kg/m?? Physical Exam: appears well, in no distress. Lab Results Component Value Date NA 142 03/09/2021 K 4.4 03/09/2021 CL 106 03/09/2021 CO2 28 03/09/2021 BUN 10 03/09/2021 CREATININE 0.79 (L) 03/09/2021 GLUCOSE 93 03/09/2021 GLUCFASTING 106 (H) 01/19/2019 CALCIUM 9.7 03/09/2021 ESTGFR 112 03/09/2021 Lab Results Component Value Date ALT 15 03/09/2021 AST 15 03/09/2021 GGT 35 09/13/2019 ALKPHOS 80 03/09/2021 BILITOT 0.4 03/09/2021 BILIDIR 0.1 09/13/2019 ALBUMIN 4.7 03/09/2021 PROT 7.6 03/09/2021 Lab Results Component Value Date WBC 5.9 03/09/2021 HGB 16.0 03/09/2021 HCT 45.7 03/09/2021 MCV 89.4 03/09/2021 PLATELET 230 03/09/2021 Assessment/Plan: 40 y.o. male with UC and autoimmune hepatitis [...] mesalamine and azathioprine for UC -Colonoscopy in July 2021 for follow up low grade dysplasia.- needs [...] Longoria MD Section of Gastroenterology & Hepatology [address] [place] [id number] Copy: Adiel Mooney MD documented in this encounter Plan of Treatment Upcoming Encounters Date Type Department Care Team (Late st Contact Info) Description 02/13/2024 1:00 PM EDT Clinical Support Primary Care at [address] [address] 03/12/2024 8:50 AM [place] [phone] Laz Longoria MD [facility] [place] [address] 03/20/2024 8:00 AM EST Office [place] [phone] Laz Longoria MD [facility] [place] [address] documented as of this encounter Results * MRI Cholangiopancreatography wwo [...] who have questions please contact the health childcare center administrator that requested your imaging first. ? Electronically signed by: Michael Sosa MD, [facility] ([phone]), at 04/02/2022 10:30 AM Narrative 04/02/2022 10:30 AM EST EXAMINATION: MRI [...] patients who have questions please contactthe health childcare center administrator that requested your imaging first. Electronically signed by: Michael Sosa MD, [facility]([phone]), at 04/02/2022 10:30 AM Laz Longoria MD [facility] MRI ORDERABLES * DXA Central Spine, Hip, and/or Whole [...] who have questions please contact the health childcare center administrator that requested your imaging first. ? Electronically signed by: Mariam Raines MD, [facility] ([phone]), at 05/06/2021 3:36 PM Narrative 05/06/2021 3:36 PM EST EXAMINATION: DXA [...] patients who have questions please contactthe health childcare center administrator that requested your imaging first. Electronically signed by: Marima Raines MD, [facility]([phone]), at 05/06/2021 3:36 PM Laz Longoria MD IMG DEXA ORDERABLES documented in this encounter Visit Diagnoses Diagnosis Sclerosing cholangitis Cholangitis Primary sclerosing cholangitis Cholangitis Sclerosing cholangitis Cholangitis Primary sclerosing cholangitis Cholangitis documented in this encounter Care Teams Winchman/Crane Operator Relationship Specialty Start Date End Date Adiel Mooney MD [facility] [place] [address] PCP - General General Internal Medicine 09/20/18 documented as of this encounter
--- OUTSIDE RECORDS SUMMARY | 2024-02-12 14:15 | XMS_ITS | Encounter Summary ---
Author Organization [facility] [place] [address] Care Team Providers Care Operator Command Support Systems Name Role Phone Adiel Mooney MD Primary Care Provider [phone] Encounter Details Date Type Department Care Team (Late st Contact Info) Description 05/21/2021 [facility]phone [facility] [place] [phone] Maida Flores Social History Tobacco Use Types [...] slept in a fci (including now)? No 03/05/2021 Sex and Gender Information Value Date Recorded Sex Assigned at Male 03/31/2023 12:56 PM EST Gender Identity Male 03/31/2023 12:56 PM EST Sexual Orientation Straight 03/31/2023 12 :56 PM EST documented as of this encounter Miscellaneous Notes * Telephone Encounter - Maida Flores - 05/21/2021 10:19 AM EST Mahamed Dale [id number] Diagnosis/Indication: 1 year f/u with me please for colonoscopy - with chromoendoscopy Thanks 1. Have you ever had a/an Colonoscopy before? Yes: Date 08/12/2020 If yes, did you have any problems with the procedure? No What type of sedation was used: IV Conscious Sedation 2. Do you take any blood thinners or have you been diagnosed with a bleeding disorder that increases your risk of bleeding with procedures? No 3. Do you have a Pacemaker or Defibrillator device? No 4. Are you a diabetic? No 5. Do you have any Allergies to Eggs, Latex or Medications? Yes: E-DH 6. Do you take any Oral Iron Supplements (Including multi-vitamins)? No 7. Do you have a history of three or more abdominal surgeries? No 8. Have you had a problem with sedation or anesthesia? Yes Nausea/ Vomiting 9. Do you use a c-pap machine or oxygen tank? Neither 10. Do you take prescription narcotic pain medications, including suboxone or methodone? No 11. Do you have a preference regarding the gender of your provider? No Preference 12. Is there any other information you would like to us to note for the provider and nursing team who will perform your case? No 13. Say to patient: You must have a responsible alliance party who will drive you to your procedure, stay oncampus for the entire duration of your procedure, and drive you home from your procedure? *Please Verify the height and weight, and adjust if height and/or weight have changed* Estimated body mass index is 24.71 kg/m?? as calculated from the following: Height as of 05/06/21: 182.9 cm (6'). Weight as of 03/11/21: 82.6 kg (182 lb 3.2 oz). Age:40 y.o. documented in this encounter Plan of Treatment Upcoming Encounters Date Type Department Care Team (Late st Contact Info) Description 02/13/2024 1:00 PM EDT Clinical Support Primary Care at [address] [address] 03/12/2024 8:50 AM [place] [address] Camilla Nava MD [facility] [place] [address] 03/20/2024 8:00 AM EST Office [place] [address] Camilla Nava MD [facility] [place] [address] documented as of this encounter Visit Diagnoses Not on filedocumented in this encounter Care Teams Operator Command Support Systems Relationship Specialty Start Date End Date Adiel Mooney MD [facility] [place] [address] PCP - General General Internal Medicine 09/20/18 documented as of this encounter
--- OUTSIDE RECORDS SUMMARY | 2024-02-12 14:15 | XMS_ITS | Encounter Summary ---
Author Organization [facility] [place]jel[place] [address] Care Team Providers Care Investigation Division Captain Name Role Phone Adiel Mooney MD Primary Care Provider [phone] Reason for Visit * Reason Onset Date Comments Medication Refill 06/22/2021 Encounter Details Date Type Department Care Team (Late st Contact Info) Description 06/22/2021 Ref[place] [address] Camilla Nava MD [facility] [place] [address] Autoimmune hepatitis Social History Tobacco Use Types [...] in a senior living (including now)? No 03/05/2021 Sex and Gender Information Value Date Recorded Sex Assigned at Male 03/31/2023 12:56 PM EST Gender Identity Male 03/31/2023 12:56 PM EST Sexual Orientation Straight 03/31/2023 12 :56 PM EST documented as of this encounter Plan of Treatment Upcoming Encounters Date Type Department Care Team (Late st Contact Info) Description 02/13/2024 1:00 PM EDT Clinical Support Primary Care at [address] [address] 03/12/2024 8:50 [place] [phone] Camilla Nava MD [facility] [place] [address] 03/20/2024 8:00 AM EST Office [place] [address] Camilla Nava MD [facility] [place] [address] documented as of this encounter Visit Diagnoses Diagnosis Autoimmune hepatitis documented in this encounter Care Teams Investigation Division Captain Relationship Specialty Start Date End Date Adiel Mooney MD [facility] GENERAL [place] [address] PCP - General General Internal Medicine 09/20/18 documented as of this encounter
--- OUTSIDE RECORDS SUMMARY | 2024-02-12 14:15 | XMS_ITS | Encounter Summary ---
Author Organization [facility] [place] [address] Care Team Providers Care Molding Sander Name Role Phone Adiel Mooney MD Primary Care Provider [phone] Reason for Visit * Reason Onset Date Comments Medication Refill 04/16/2020 fax received f rom pharmacy requesting 90 day rx for bupropion Encounter Details Date Type Department Care Team (Late st Contact Info) Description 04/16/2020 Telephone Internal Medicine at [address] [address] Adiel Mooney MD [facility] [place] [address] Medication Refill (fax received from pharmacy requesting 90 day rx for bupropion) Social History Tobacco Use Types Packs/Day Years [...] PM EDT Clinical Support Primary Care at [address] [phone] 03/12/2024 8:50 AM [place] [address] Camilla Nava MD [facility] [place] [address] 03/20/2024 8:00 AM EST Office [place] [address] Camilla Nava MD [facility] [place] [address] documented as of this encounter Visit Diagnoses Not on filedocumented in this encounter Care Teams Molding Sander Relationship Specialty Start Date End Date Adiel Mooney MD [facility] [place] [address] PCP - General General Internal Medicine 09/20/18 documented as of this encounter
--- OUTSIDE RECORDS SUMMARY | 2024-02-12 14:15 | XMS_ITS | Encounter Summary ---
Author Organization [facility] [place] [address] Care Team Providers Care Ham Facer Name Role Phone Adiel Mooney MD Primary Care Provider [phone] Encounter Details Date Type Department Care Team (Latest Contact Info) Description 03/09/2021 8:25 AM EST Laboratory Appointment Lab [address] [place] [phone] Healthcare maintenance; Primary sclerosing cholangitis Social History Tobacco Use [...] slept in a fpc (including now)? No 03/05/2021 Sex and Gender [...] EDT Clinical Support Primary Care at [address] [address] 03/12/2024 8:50 AM EST Appointment MRI at [place] [phone] Camilla Nava MD [facility] [place] [address] 03/20/2024 8:00 AM EST Office [place] [phone] Camilla Nava MD [facility] [place] [address] documented as of this encounter Procedures Procedure Name Priority Date/Time Associated Diagnosis Comments HEMOGRAM Routine 03/09/2021 8:45 AM EST Primary sclerosing cholangitis DIFFERENTIAL, AUTOMATED Routine 03/09/2021 8:45 AM EST Primary sclerosing cholangitis HC CBC,PLT & AUTO DIFF Routine 8:45 AM EST Primary sclerosing cholangitis HC VENIPUNCTURE Routine 03/09/2021 8:45 AM EST Healthcare maintenance COMPREHENSIVE METABOLIC PANEL Routine 03/09/2021 8:45 AM EST Primary sclerosing cholangitis documented in this encounter Results * Differential, Automated (03/09/2021 8:45 AM EST) Neutrophil % 71.5 % [facility] Neutrophil Absolute 4.24 1.70 - 6.10 x10(3)/[facility] Lymph % 19.7 % [facility] Lymphocytes Abs 1.2 0.9 - 3.2 x10(3)/[facility] Monocyte % 7.7 % [facility] Monocyte Abs 0.5 0.3 - 0.9 x10(3)/[facility] Eos % 0.3 % [facility] Eosinophils Abs 0.0 0.0 - 0.4 x10(3)/[facility] Basophil % 0.5 % [facility] Baso Absolute 0.0 0.0 - 0.1 x10(3)/[facility] Immature Gran % 0.30 % [facility] Comment: Immature granulocytes(IG's)percentage and absolute count will include metamyelocytes, myelocytes, and promyelocytes. Blood smears from CBCs yielding IG's will be scanned manually for concordance. If this scan disagrees with the automated IG or if promyelocytes are noted, a manual differential will be performed. Immature Gran Absolute 0.02 0.00 - 0.04 x10(3)/[facility] Blood 03/09/2021 8:45 AM EST 03/09/2021 9:06 AM EST Narrative Resulting Agency Comment Spec In Lab Camilla Nava MD HEMATOLOGY ORDERABLE S [facility] [place] [address] * Hemogram (03/09/2021 8:45 AM EST) [facility] White Blood Cell 5.9 4.0 - 9.5 x10(3)/[facility] Red Blood Cell 5.11 4.58 - 5.54 x10(6)/[facility] Hemoglobin 16.0 13.7 - 16.5 g/dL [facility] Hematocrit 45.7 40.5 - 48.5 % [facility] Mean Cell Volume 89.4 82.9 - 93.1 [facility] Mean Cell Hemoglobin 31.3 27.5 - 32.[address] [facility] Mean Cell Hemoglobin Concentration 35.0 32.0 - 35.7 g/dL [facility] Platelet 230 145 - 357 x10(3)/[facility] RDW Standard Deviation 43.0 36.0 - 45.0 [facility] RDW coefficient of variation 13.2 11.4 - 13.8 % [facility] Mean Platelet Volume 10.3 7.6 - 12.9 [facility] NRBC% auto 0.0 % [facility] NRBC Absolute 0.000 0.000 - 0.000 x10(3)/[facility] Blood 03/09/2021 8:45 AM EST 03/09/2021 9:06 AM EST Narrative Resulting Agency Comment Spec In Lab Camilla Nava MD HEMATOLOGY ORDERABLE S [facility] [place] [address] * (ABNORMAL) Comprehensive metabolic panel (non-fasting) (03/09/2021 8:45 AM EST) [facility] Glucose 93 65 - 199 mg/dL [facility] Comment:Diabetes: >=200 mg/d L plus symptoms Blood Urea Nitrogen 10 10 - 20 mg/dL [facility] Creatinine 0.79(L) 0.80 - 1.50 mg/dL [facility] Sodium 142 135 - 145 mmol/L [facility] Potassium 4.4 3.5 - 5.0 mmol/L [facility] Comment: Please note: ??Patients with WBC >100,000 may have falsely elevated Potassium levels. ??For accurate Potassium quantification in these patients send serum separator tube (gold top) for subsequent determinations. ??Contact the Clinical Chemistry Laboratory if there are any questions. Chloride 106 98 - 107 mmol/L [facility] Carbon Dioxide 28 22 - 31 mmol/L [facility] Anion Gap 8 5 - 15 mmol/L [facility] Calcium 9.7 8.5 - 10.5 mg/dL [facility] Protein, Total 7.6 6.1 - 8.0 g/dL [facility] Albumin 4.7 3.2 - 5.2 g/dL [facility] Aspartate Aminotransferase 15 0 - 39 unit/L [facility] Alanine Aminotransferase 15 0 - 55 unit/L [facility] Alkaline Phosphatase 80 40 - 130 unit/L [facility] Bilirubin, Total 0.4 0.2 - 1.3 mg/dL [facility] Est Glomerular Filtration Rate 112 >=60 mL/min/1. 73 m?? [facility] Comment: This patient? s estimated glomerular filtration rate (eGFR) is between 112 mL/min/1.73 m2 (patients with less muscle mass per kg body weight) and 129 mL/min/1.73 m2 (patients with more muscle mass per kg body weight) as determined by the CKD-EPI equation. Assessment of eGFR is not appropriate when creatinine concentrations are rapidly changing. For clinical decisions where creatinine clearance will affect therapy, a 24-hour urine creatinine clearance may be advised. Assignment of CKD stage 1 - 5 for patients with an eGFR near the transition point between stages may be based on clinical assessment of muscle mass and symptoms in addition to eGFR. Blood 03/09/2021 8:45 AM EST 03/09/2021 9:06 AM EST Narrative Resulting Agency Comment Spec In Lab Camilla Nava MD CHEMISTRY ORDERABLES [facility] [place] [address] * Lipid Panel (Reflex Direct LDL) (03/09/2021 8:45 AM EST) Cholesterol, Total 174 mg/dL [facility] Comment: Lower Risk: <200 mg/dL Average Risk: 200-239 mg/dL Higher Risk: >fk=880 mg/dL Triglyceride 67 mg/dL [facility] Comment: Average Risk/Lower Risk: <150 mg/dL Borderline High Risk: 150-199 mg/dL High Risk: 200-499 mg/dL Very High Risk: >yu=281 mg/dL HDL Cholesterol 58 mg/dL [facility] Comment: Males: ?? Higher Risk: <40 mg/dL Females: ?? Higher Risk: <50 mg/dL LDL Cholesterol 103 mg/dL [facility] Comment: Lowest Risk: <100 mg/dL Lower Risk: 100-129 mg/dL Borderline High Risk: 130-159 mg/dL High Risk: 160-189 mg/dL Very High Risk: >cm=909 mg/dL Cholesterol/HDL Ratio 3.[address] [facility] Lipid Interpretation See Note [facility] Comment: Lipid management should be guided by a patient? s ASCVD risk, goals and preferences. ACC/AHA Guidelines recommend high intensity statin if clinical ASCVD or LDL greater than or equal to 190 mg/dL. http://tinyurl.com/HRE-XVE-Xeyydkryj Adults aged 40-75 with LDL 70-189 mg/dL should have their 10 year ASCVD risk estimated with the ACC/AHA ASCVD risk senior electrical estimator http://tools.acc.org/FXLFA-Xfad-Batmumojz/ Statin should be discussed if risk greater [...] In Lab Adiel Mooney MD CHEMISTRY ORDERABLES [facility] [place] [address] documented in this encounter Visit Diagnoses Diagnosis Healthcare maintenance Routine general medical examination at a health care facility Primary sclerosing cholangitis Cholangitis documented in this encounter Care Teams Ham Facer Relationship Specialty Start Date End Date Adiel Mooney MD [facility] [place] [address] PCP - General General Internal Medicine 09/20/18 documented as of this encounter
--- OUTSIDE RECORDS SUMMARY | 2024-02-12 14:15 | XMS_ITS | Encounter Summary ---
Author Organization [facility] [place] [address] Care Team Providers Care Manager Of Construction Name Role Phone Adiel Mooney MD Primary Care Provider [phone] Encounter Details Date Type Department Care Team (Late st Contact Info) Description 03/04/2021 Orders Only Internal Medicine at [address] [address] Adiel Mooney MD [facility] GENER[facility] [place] [address] Social History Tobacco Use Types Packs/Day Years [...] EDT Clinical Support Primary Care at [address] [phone] 03/12/2024 8:50 AM [place] [phone] Camilla Nava MD [facility] [place] [address] 03/20/2024 8:00 AM EST Office Visit [place] [phone] Camilla Nava MD [facility] [place] [address] documented as of this encounter Visit Diagnoses Not on filedocumented in this encounter Care Teams Manager Of Construction Relationship Specialty Start Date End Date Adiel Mooney MD [facility] [place] [address] PCP - General General Internal Medicine 09/20/18 documented as of this encounter
--- OUTSIDE RECORDS SUMMARY | 2024-02-12 14:15 | XMS_ITS | Encounter Summary ---
Author Organization [facility] [place] [address] Care Team Providers Care Laborer/Grade Check Name Role Phone Adiel Mooney MD Primary Care Provider [phone] Reason for Visit * Reason Comments Medication Refill Encounter Details Date Type Department Care Team (Late st Contact Info) Description 08/22/2020 Refill [place] [phone] Camilla Nava MD [facility] [place] [address] Ulcerative colitis without complications, unspecified location Social [...] EDT Clinical Support Primary Care at [address] [phone] 03/12/2024 8:50 AM [place] [phone] Camilla Nava MD [facility] [place] [address] 03/20/2024 8:00 AM EST Office [place] [address] Camilla Nava MD [facility] [place] [address] documented as of this encounter Visit Diagnoses Diagnosis Ulcerative colitis without complications, unspecified location documented in this encounter Care Teams Laborer/Grade Check Relationship Specialty Start Date End Date Adiel Mooney MD [facility] GENER[facility] INTER[place] [address] PCP - General General Internal Medicine 09/20/18 documented as of this encounter
--- OUTSIDE RECORDS SUMMARY | 2024-02-12 14:15 | XMS_ITS | Encounter Summary ---
Author Organization [facility] [place] [address] Care Team Providers Care Lead Database Developer Name Role Phone Adiel Mooney MD Primary Care Provider [phone] Encounter Details Date Type Department Care Team (Latest Contact Info) Description 09/11/2021 4:00 PM EDT Laboratory Appointment Lab [address] [place] [phone] Primary sclerosing cholangitis Social History Tobacco Use [...] PM EDT Clinical Support Primary Care at [address] [phone] 03/12/2024 8:50 AM [place] [phone] Camilla Nava MD [facility] [place] [address] 03/20/2024 8:00 AM EST Office [place] [phone] Camilla Nava MD [facility] [place] [address] documented as of this encounter Procedures Procedure Name Priority Date/Time Associated Diagnosis Comments HEMOGRAM Routine 09/11/2021 4:06 PM EDT Primary sclerosing cholangitis DIFFERENTIAL, AUTOMATED Routine 09/11/2021 4:06 PM EDT Primary sclerosing cholangitis HC CBC,PLT & AUTO DIFF Routine 4:06 PM EDT Primary sclerosing cholangitis COMPREHENSIVE METABOLIC PANEL Routine 09/11/2021 4:06 PM EDT Primary sclerosing cholangitis documented in this encounter Results * Differential, Automated (09/11/2021 4:06 PM EDT) Neutrophil % 68.7 % [facility] Neutrophil Absolute 4.41 1.70 - 6.10 x10(3)/[facility] LAB[facility] Lymph % 21.3 % [facility] Lymphocytes Abs 1.4 0.9 - 3.2 x10(3)/[facility] Monocyte % 8.6 % [facility] Monocyte Abs 0.6 0.3 - 0.9 x10(3)/[facility] Eos % 0.5 % [facility] Eosinophils Abs 0.0 0.0 - 0.4 x10(3)/[facility] Basophil % 0.6 % [facility] Baso Absolute 0.0 0.0 - 0.1 x10(3)/[facility] Immature Gran % 0.30 % [facility] Comment: Immature granulocytes(IG's)percentage and absolute count will include metamyelocytes, myelocytes, and promyelocytes. Blood smears from CBCs yielding IG's will be scanned manually for concordance. If this scan disagrees with the automated IG or if promyelocytes are noted, a manual differential will be performed. Immature Gran Absolute 0.02 0.00 - 0.04 x10(3)/[facility] Blood 09/11/2021 4:06 PM EDT 09/11/2021 4:23 PM EDT Narrative Resulting Agency Comment Spec In Lab Camilla Nava MD HEMATOLOGY ORDERABLE S [facility] [place] [address] * Hemogram (09/11/2021 4:06 PM EDT) [facility] White Blood Cell 6.4 4.0 - 9.5 x10(3)/[facility] Red Blood Cell 4.93 4.58 - 5.54 x10(6)/[facility] Hemoglobin 15.7 13.7 - 16.5 g/dL [facility] Hematocrit 44.9 40.5 - 48.5 % [facility] Mean Cell Volume 91.1 82.9 - 93.1 fL [facility] Mean Cell Hemoglobin 31.8 27.5 - 32.1 pg [facility] Mean Cell Hemoglobin Concentration 35.0 32.0 - 35.7 g/dL [facility] Platelet 250 145 - 357 x10(3)/[facility] RDW Standard Deviation 44.0 36.0 - 45.0 [facility] RDW coefficient of variation 13.2 11.4 - 13.8 % [facility] Mean Platelet Volume 10.6 7.6 - 12.9 [facility] NRBC% auto 0.0 % [facility] NRBC Absolute 0.000 0.000 - 0.000 x10(3)/[facility] Blood 09/11/2021 4:06 PM EDT 09/11/2021 4:23 PM EDT Narrative Resulting Agency Comment Spec In Lab Camilla Nava MD HEMATOLOGY ORDERABLE S [facility] [place] [address] * Comprehensive metabolic panel (non-fasting) (09/11/2021 4:06 PM EDT) Pathologist [facility] Glucose 86 65 - 199 mg/dL [facility] Comment:Diabetes: >=200 mg/d L plus symptoms Blood Urea Nitrogen 12 10 - 20 mg/dL [facility] Creatinine 0.80 0.80 - 1.50 mg/dL [facility] Sodium 138 135 - 145 mmol/L [facility] Potassium 3.9 3.5 - 5.0 mmol/L [facility] Comment: Please note: ??Patients with WBC >100,000 may have falsely elevated Potassium levels. ??For accurate Potassium quantification in these patients send serum separator tube (gold top) for subsequent determinations. ??Contact the Clinical Chemistry Laboratory if there are any questions. Chloride 103 98 - 107 mmol/L [facility] Carbon Dioxide 22 22 - 31 mmol/L [facility] Anion Gap 13 5 - 15 mmol/L [facility] Calcium 9.5 8.5 - 10.5 mg/dL [facility] Protein, Total 7.7 6.1 - 8.0 g/dL [facility] Albumin 4.8 3.2 - 5.2 g/dL [facility] Aspartate Aminotransferase 27 0 - 39 unit/L [facility] Alanine Aminotransferase 28 0 - 55 unit/L [facility] Alkaline Phosphatase 107 40 - 130 unit/L [facility] Bilirubin, Total 0.5 0.2 - 1.3 mg/dL [facility] Est Glomerular Filtration Rate 110 >=60 mL/min/1. 73 m?? [facility] Comment: This patient? s estimated glomerular filtration rate (eGFR) is between 110 mL/min/1.73 m2 (patients with less muscle mass per kg body weight) and 128 mL/min/1.73 m2 (patients with more muscle mass [...] and symptoms in addition to eGFR. Blood 09/11/2021 4:06 PM EDT 09/11/2021 4:23 PM EDT Narrative Resulting Agency Comment Spec In Lab Camilla Nava MD CHEMISTRY ORDERABLES [facility] [place] [address] documented in this encounter Visit Diagnoses Diagnosis Primary sclerosing cholangitis Cholangitis documented in this encounter Care Teams Lead Database Developer Relationship Specialty Start Date End Date Adiel Mooney MD [facility] [address] GENERAL [place] [address] PCP - General General Internal Medicine 09/20/18 documented as of this encounter
--- OUTSIDE RECORDS SUMMARY | 2024-02-12 14:15 | XMS_ITS | Encounter Summary ---
Author Organization Formerly [facility] [place] [address] Care Team Providers Care Electro Mechanical Technician Name Role Phone Adiel Mooney MD Primary Care Provider [phone] Encounter Details Date Type Department Care Team (Latest Contact Info) Description 09/12/2020 12:45 PM EDT Laboratory Appointment Lab [address] [place] [address] Primary sclerosing cholangitis Social History Tobacco Use [...] EDT Clinical Support Primary Care at [address] [phone] 03/12/2024 8:50 AM [place] [address] Camilla Nava MD [facility] [place] [address] 03/20/2024 8:00 AM EST Office Visit Gastroenterology at [facility] [place] [address] Camilla Nava MD [facility] [place] [address] documented as of this encounter Procedures Procedure Name Priority Date/Time Associated Diagnosis Comments HEMOGRAM Routine 09/12/2020 12:58 PM EDT Primary sclerosing cholangitis DIFFERENTIAL, AUTOMATED Routine 09/12/2020 12:58 PM EDT Primary sclerosing cholangitis HC CBC,PLT & AUTO DIFF Routine 12:58 PM EDT Primary sclerosing cholangitis COMPREHENSIVE METABOLIC PANEL Routine 09/12/2020 12:58 PM EDT Primary sclerosing cholangitis documented in this encounter Results * Differential, Automated (09/12/2020 12:58 PM EDT) Neutrophil % 63.9 % [facility] Neutrophil Absolute 3.41 1.70 - 6.10 x10(3)/[facility] Lymph % 27.8 % [facility] Lymphocytes Abs 1.5 0.9 - 3.2 x10(3)/[facility] Monocyte % 6.9 % [facility] Monocyte Abs 0.4 0.3 - 0.9 x10(3)/[facility] Eos % 0.4 % [facility] Eosinophils Abs 0.0 0.0 - 0.4 x10(3)/[facility] Basophil % 0.4 % [facility] Baso Absolute 0.0 0.0 - 0.1 x10(3)/[facility] Immature Gran % 0.60 % [facility] Comment: Immature granulocytes(IG's)percentage and absolute count will include metamyelocytes, myelocytes, and promyelocytes. Blood smears from CBCs yielding IG's will be scanned manually for concordance. If this scan disagrees with the automated IG or if promyelocytes are noted, a manual differential will be performed. Immature Gran Absolute 0.03 0.00 - 0.04 x10(3)/[facility] Blood 09/12/2020 12:5 8 PM EDT 09/12/2020 1:11 PM EDT Narrative Resulting Agency Comment Spec In Lab Camilla Nava MD HEMATOLOGY ORDERABLE S [facility] [place] [address] * Hemogram (09/12/2020 12:58 PM EDT) White Blood Cell 5.3 4.0 - 9.5 x10(3)/[facility] Red Blood Cell 4.95 4.58 - 5.54 x10(6)/[facility] Hemoglobin 15.8 13.7 - 16.5 gm/dL [facility] Hematocrit 44.6 40.5 - 48.5 % [facility] Mean Cell Volume 90.1 82.9 - 93.1 fL [facility] Mean Cell Hemoglobin 31.9 27.5 - 32.1 pg [facility] Mean Cell Hemoglobin Concentration 35.4 32.0 - 35.7 gm/dL [facility] Platelet 206 145 - 357 x10(3)/[facility] RDW Standard Deviation 42.2 36.0 - 45.0 [facility] RDW coefficient of variation 12.8 11.4 - 13.8 % [facility] Mean Platelet Volume 10.3 7.6 - 12.9 fL [facility] NRBC% auto 0.0 % [facility] NRBC Absolute 0.000 0.000 - 0.000 x10(3)/[facility] Blood 09/12/2020 12:5 8 PM EDT 09/12/2020 1:11 PM EDT Narrative Resulting Agency Comment Spec In Lab Camilla Nava MD HEMATOLOGY ORDERABLE S [facility] [place] [address] * (ABNORMAL) Comprehensive metabolic panel (non-fasting) (09/12/2020 12:58 PM EDT) Glucose 116 65 - 199 mg/dL [facility] Comment:Diabetes: >=200 mg/d L plus symptoms Blood Urea Nitrogen 9(L) 10 - 20 mg/dL [facility] Creatinine 0.73(L) 0.80 - 1.50 mg/dL [facility] Sodium 140 135 - 145 mmol/L [facility] Potassium 3.8 3.5 - 5.0 mmol/L [facility] Comment: Please note: ??Patients with WBC >100,000 may have falsely elevated Potassium levels. ??For accurate Potassium quantification in these patients send serum separator tube (gold top) for subsequent determinations. ??Contact the Clinical Chemistry Laboratory if there are any questions. Chloride 105 98 - 107 mmol/L [facility] Carbon Dioxide 24 22 - 31 mmol/L [facility] Anion Gap 11 5 - 15 mmol/L [facility] Calcium 9.3 8.5 - 10.5 mg/dL [facility] Protein, Total 7.3 6.1 - 8.0 gm/dL [facility] Albumin 4.6 3.2 - 5.2 gm/dL [facility] Aspartate Aminotransferase 18 0 - 39 unit/L [facility] Alanine Aminotransferase 16 0 - 55 unit/L [facility] Alkaline Phosphatase 86 40 - 130 unit/L [facility] Bilirubin, Total 0.5 0.2 - 1.3 mg/dL [facility] Est Glomerular Filtration Rate 115 >=60 mL/min/1. 73 m?? [facility] Comment: This patient? s estimated glomerular filtration rate (eGFR) is between 115 mL/min/1.73 m2 (patients with less muscle mass per kg body weight) and 134 mL/min/1.73 m2 (patients with more muscle mass [...] and symptoms in addition to eGFR. Blood 09/12/2020 12:5 8 PM EDT 09/12/2020 1:11 PM EDT Narrative Resulting Agency Comment Spec In Lab Camilla Nava MD CHEMISTRY ORDERABLES [facility] [place] [address] documented in this encounter Visit Diagnoses Diagnosis Primary sclerosing cholangitis Cholangitis documented in this encounter Care Teams Electro Mechanical Technician Relationship Specialty Start Date End Date Adiel Mooney MD [facility] [place] [address] PCP - General General Internal Medicine 09/20/18 documented as of this encounter
--- OUTSIDE RECORDS SUMMARY | 2024-02-12 14:15 | XMS_ITS | Encounter Summary ---
Author Organization Formerly [facility] [place] [address] Care Team Providers Care Insulation Batting Machine Operator Name Role Phone Adiel Mooney MD Primary Care Provider [phone] Encounter Details Date Type Department Care Team (Late st Contact Info) Description 03/02/2022 Orders Only Gastroenterology at [facility] [place] [address] Camilla Nava MD [facility] [place] [address] Decreased bone density Social History Tobacco Use [...] place to sleep or slept in a alf (including now)? No 03/05/2021 Sex and Gender Information Value Date Recorded Sex Assigned at Male 03/31/2023 12:56 PM EST Gender Identity Male 03/31/2023 12:56 PM EST Sexual Orientation Straight 03/31/2023 12 :56 PM EST documented as of this encounter Plan of Treatment Upcoming Encounters Date Type Department Care Team (Late st Contact Info) Description 02/13/2024 1:00 PM EDT Clinical Support Primary Care at [address] [phone] 03/12/2024 8:50 AM [place] [phone] Camilla Nava MD [facility] [place] [address] 03/20/2024 8:00 AM EST Office [place] [phone] Camilla Nava MD [facility] [place] [address] documented as of this encounter Results * Vitamin D, 25-Hydroxy (03/08/2022 12:43 PM EST) Vitamin D Total 25 OH 31 21 - 100 ng/mL [facility] Vit D Interp Sufficient [facility] Blood 03/08/2022 12:4 3 PM EST 03/08/2022 12:54 PM EST Narrative Resulting Agency Comment Spec In Lab Camilla Nava MD CHEMISTRY ORDERABLES [facility] [place] [address] documented in this encounter Visit Diagnoses Diagnosis Decreased bone density Other disorders of bone and cartilage documented in this encounter Care Teams Insulation Batting Machine Operator Relationship Specialty Start Date End Date Adiel Mooney MD [facility] [place] [address] PCP - General General Internal Medicine 09/20/18 documented as of this encounter
--- OUTSIDE RECORDS SUMMARY | 2024-02-12 14:15 | XMS_ITS | Encounter Summary ---
Author Organization [facility] Anjelica mcduffie [place] [id number] Care Team Providers Care House Wrecker Name Role Phone Adiel Mooney MD Primary Care Provider Reason for Referral * Diagnostic Test (Routine) - Closed Specialty Diagnoses / Procedures Referred By Contac t Referred To Contact Radiology Diagnoses Primary sclerosing cholangitis Procedures MRI Cholangiopancreatography Camilla French MD [facility] [place] [address] [place] [address] Referral ID Status Reason Start Date Expiration Date V isits Requested Visits Authorized [id number] Closed Specialty Service Requested 03/03/2021 06/01/2021 1 1 Reason for Visit * Diagnostic Test (Routine) - Closed Specialty Diagnoses / Procedures Referred By Contpeter t Referred To Contact Radiology Diagnoses Primary sclerosing cholangitis Procedures MRI Cholangiopancreatography Camilla French MD [facility] [place] [address] [place] [address] Referral ID Status Reason Start Date Expiration Date V isits Requested Visits Authorized [id number] Closed Specialty Service Requested 03/03/2021 06/01/2021 1 1 Encounter Details Date Type Department Care Team (Latest Contact Info) Description 03/09/2021 6:29 AM EST - 03/09/2021 11:59 PM EST Hospital Encounter MRI at [facility] [place] [phone] Camilla Nava MD [facility] [place] [address] Primary sclerosing cholangitis Discharge Disposition: Home Social [...] slept in a long-term (including now)? No 03/05/2021 Sex and Gender [...] PM EDT Clinical Support Primary Care at [address] [phone] 03/12/2024 8:50 AM [place] [address] Camilla Nava MD [facility] [place] [address] 03/20/2024 8:00 AM EST Office [place] [address] Camilla Nava MD [facility] GASTROENTEROLOGY [place] [phone] documented as of this encounter Procedures Procedure Name Priority Date/Time Associated Diagnosis Comments MRI CHOLANGIOPANCREATOGRAPHY WWO CONTRAST Routine 03/09/2021 8:00 AM EST Primary sclerosing cholangitis documented in this encounter Results * MRI Cholangiopancreatography wwo Contrast (03/09/2021 8:00 AM EST) Anatomical Region Laterality Modality Magnetic Resonan ce Impressions 03/09/2021 8:54 AM EST 1. ??Unchanged MRI / MRCP appearance of the abdomen with scattered intrahepatic bile duct stenoses and beading compatible with known diagnosis of Primary Sclerosing Cholangitis. 2. ??No focal hepatic lesions. I have personally reviewed the image(s) and the resident's interpretation and agree with the findings, Yaakov Arenas DO at 03/09/2021 8:54 AM Thank you for letting us participate in the care of this patient. ??If you are a health care provider and have any questions regarding this report, please contact the number below. ??For patients who have questions please contact the health caregiver assisted living that requested your imaging first. ? Electronically signed by: Yaakov Arenas DO, [facility] ([phone]), at 03/09/2021 8:54 AM Narrative 03/09/2021 8:54 AM EST EXAMINATION: MRI CHOLANGIOPANCREATOGRAPHY WWO CONTRAST ? CLINICAL HISTORY: Primary sclerosing cholangitis, screen for cholangiocarcinoma. TECHNIQUE: MRI of the abdomen was performed with images obtained prior to and following the intravenous administration of 16.6ml Dotarem. Noncontrast MRCP was performed. 3D MIPS were created. COMPARISON: MRI abdomen 02/26/2020 and 01/29/2019. FINDINGS: Chief Cardiopulmonary Technologist Images: Noncontributory. Lower chest: Visualized structures within the inferior thorax are unremarkable. Liver: Normal. ??No focal lesions. Gallbladder: Normal. Bile ducts: There is again demonstration of focal stenosis of the common hepatic bile duct at the confluence. The distal segmental intrahepatic bile ducts are not well visualized, similar to prior. There is also persistent long segment stenosis of the right anterior posterior right intrahepatic bile ducts. The common bile duct is normal in caliber. ??Mild beading of the visualized intrahepatic ducts persists, particularly in the left. Pancreas: Normal. Pancreatic duct: Normal caliber and configuration. Spleen: Normal. Adrenals: Normal. Kidneys: Normal. Vasculature: The aorta is normal in course and caliber. ??The origin of the mesenteric and renal arteries are within normal limits. ??The inferior vena cava is normal in course and caliber. ??The superior mesenteric, splenic, and portal veins are patent. ??The hepatic veins are patent. Lymph nodes: There are no pathologically enlarged lymph nodes. Bowel: Nondilated, no inflammatory changes. Peritoneum and mesentery: No ascites or loculated fluid collection. Marrow Signal: Normal. Procedure Note Yaakov Arenas, DO - 03/09/2021 EXAMINATION: MRI CHOLANGIOPANCREATOGRAPHY WWO CONTRAST CLINICAL HISTORY: Primary sclerosing cholangitis, screen forcholangiocarcinoma. TECHNIQUE: MRI of the abdomen was performed with images obtained prior toand following the intravenous administration of 16.6ml Dotarem. NoncontrastMRCP was performed. 3D MIPS were created. COMPARISON: MRI abdomen 02/26/2020 and 01/29/2019. FINDINGS: Chief Cardiopulmonary Technologist Images: Noncontributory. Lower chest: Visualized structures within the inferior thorax areunremarkable. Liver: Normal. No focal lesions. Gallbladder: Normal. Bile ducts: There is again demonstration of focal stenosis of the commonhepatic bile duct at the confluence. The distal segmental intrahepatic bile ductsare not well visualized, similar to prior. There is also persistent longsegment stenosis of the right anterior posterior right intrahepatic bile ducts.The common bile duct is normal in caliber. Mild beading of the visualized intrahepatic ducts persists, particularly in the left. Pancreas: Normal. Pancreatic duct: Normal caliber and configuration. Spleen: Normal. Adrenals: Normal. Kidneys: Normal. Vasculature: The aorta is normal in course and caliber. The origin ofthe mesenteric and renal arteries are within normal limits. The inferior venacava is normal in course and caliber. The superior mesenteric, splenic, andportal veins are patent. The hepatic veins are patent. Lymph nodes: There are no pathologically enlarged lymph nodes. Bowel: Nondilated, no inflammatory changes. Peritoneum and mesentery: No ascites or loculated fluid collection. Marrow Signal: Normal. IMPRESSION 1. Unchanged MRI / MRCP appearance of the abdomen with scatteredintrahepatic bile duct stenoses and beading compatible with known diagnosis ofPrimary Sclerosing Cholangitis. 2. No focal hepatic lesions. I have personally reviewed the image(s) and the resident's interpretationand agree with the findings, Yaakov Arenas DO at 03/09/2021 8:54 AM Thank you for letting us participate in the care of this patient. If youare a health care provider and have any questions regarding this report,please contact the number below. For patients who have questions please contactthe health caregiver assisted living that requested your imaging first. Electronically signed by: Yaakov Arenas DO, [facility]([phone]), at 03/09/2021 8:54 AM Camilla Nava MD IM MRI ORDERABLES documented in this encounter Visit Diagnoses Diagnosis Primary sclerosing cholangitis Cholangitis documented in this encounter Administered Medications Inactive Administered Medications - up to 3 most recent administrations Medication Order MAR Action Action Date Dose Rate Site gadoterate meglumine (Dotarem) (0.5 mMol/mL) injection solution 0-100 mL 0-100 mL, Intravenous, ONCE PRN, 1 dose, Starting on Tue03/09/21 at 0658, Until Tue03/09/21 at 0748, Per Protocol, Radiology Contrast, Routine Given 03/09/2021 7:48 AM EST 16.6 mLs documented in this encounter Care Teams House Wrecker Relationship Specialty Start Date End Date Adiel Mooney MD [facility] [place] [address] PCP - General General Internal Medicine 09/20/18 documented as of this encounter
--- OUTSIDE RECORDS SUMMARY | 2024-02-12 14:15 | XMS_ITS | Encounter Summary ---
Author Organization [facility] [place] [address] Care Team Providers Care Child Care Center Administrator Name Role Phone Adiel Mooney MD Primary Care Provider [phone] Encounter Details Date Type Department Care Team (Late st Contact Info) Description 07/23/2020 Telephone Gastroenterology at [place] [phone] Harjeet Barrett Social History Tobacco Use Types Packs/Day Years [...] encounter Miscellaneous Notes * Telephone Encounter - Harjeet Barrett - 07/23/2020 4:54 PM EDT Tanika Dale [id number] Diagnosis/Indication: Ulcerative colitis without complications, unspecified location Primary sclerosing cholangitis 1. Have you ever had a/an Colonoscopy before? Yes: Date 01/03/2020 If yes, did you have any problems [...] Allergies to Eggs, Latex or Medications? Yes: See chart 6. Do you take any Oral Iron Supplements (Including multi-vitamins)? No 7. Do you have a history of three or more abdominal surgeries? No 8. Have you had a problem with sedation or anesthesia? No 9. Do you use a c-pap machine or oxygen tank? Neither 10. Do you take prescription narcotic pain medications, including suboxone or methodone? No 11. Do you have a preference regarding the gender of your provider? Nitesh or Rudy 12. Is there any other information you would like to us to note for the provider and nursing team who will perform your case? No 13. Say to patient: You must have a responsible democrat who will drive you to your procedure, stay oncampus for the entire duration of your procedure, and drive you home from your procedure? *Please Verify the height and weight, and adjust if height and/or weight have changed* Estimated body mass index is 24.14 kg/m?? as calculated from the following: Height as of 03/13/20: 182.9 cm (6' 0.01). Weight as of 03/13/20: 80.7 kg (178 lb). Age:40 y.o. documented in this encounter Plan of Treatment Upcoming Encounters Date Type Department Care Team (Late st Contact Info) Description 02/13/2024 1:00 PM EDT Clinical Support Primary Care at [address] [address] 03/12/2024 8:50 [place] [address] Camilla Nava MD [facility] [place] [address] 03/20/2024 8:00 AM EST Office [place] [phone] Camilla Nava MD [facility] [place] [address] documented as of this encounter Visit Diagnoses Not on filedocumented in this encounter Care Teams Child Care Center Administrator Relationship Specialty Start Date End Date Adiel Mooney MD [facility] [place] [address] PCP - General General Internal Medicine 09/20/18 documented as of this encounter
--- OUTSIDE RECORDS SUMMARY | 2024-02-12 14:15 | XMS_ITS | Encounter Summary ---
Author Organization [facility] [place] [address] Care Team Providers Care Orthopedic Radiologic Technologist Name Role Phone Adiel Mooney MD Primary Care Provider [phone] Reason for Visit * Reason Onset Date Comments Appointment 12/22/2020 Encounter Details Date Type Department Care Team (Late st Contact Info) Description 12/22/2020 Telephone Internal Medicine at [place] [phone] Carrie Barndon Appointment Social History Tobacco Use Types Packs/Day Years [...] encounter Miscellaneous Notes * Telephone Encounter - Carrie Brandon - 12/22/2020 4:12 PM EDT Message: Patient called to schedule a physical with Adiel Mooney MD and would only like to see PCP. Patient was requesting for end of January beginning of February. This documentation writer was unable to finda appointment until 05/26/2021. Ask caller their first and last name and relationship to the patient: Mahamed Ramos Suyapa Best time to call back: any Ok to leave a message: yes Ok to send [facility] message: yes Offered Appointment: yes Scheduled and put on the wait list. Patient would like earlier. MA/Nurse/Acid Tank Cleaner contacted via: Message:yes Call: no Pager: no documented in this encounter Plan of Treatment Upcoming Encounters Date Type Department Care Team (Late st Contact Info) Description 02/13/2024 1:00 PM EDT Clinical Support Primary Care at [address] [phone] 03/12/2024 8:50 AM [place] [address] Camilla Nava MD [facility] [place] [address] 03/20/2024 8:00 AM EST Office [place] [address] Camilla Nava MD [facility] [place] [address] documented as of this encounter Visit Diagnoses Not on filedocumented in this encounter Care Teams Orthopedic Radiologic Technologist Relationship Specialty Start Date End Date Adiel Mooney MD [facility] [place] [address] PCP - General General Internal Medicine 09/20/18 documented as of this encounter
--- OUTSIDE RECORDS SUMMARY | 2024-02-12 14:15 | XMS_ITS | Encounter Summary ---
Author Organization [facility] [place] [address] Care Team Providers Care Power Brake Operator Name Role Phone Adiel Mooney MD Primary Care Provider [phone] Reason for Visit * Reason Comments Follow-up Encounter Details Date Type Department Care Team (Late st Contact Info) Description 03/13/2020 4:00 PM EST TH Visit (TeleHealth) Internal Medicine at [address] [address] Adiel Mooney MD [facility] [place] [address] Attention deficit disorder, unspecified hyperactivity presence; PSC (primary sclerosing cholangitis); Ulcerative colitis without complications, unspecified location; Hepatitis, autoimmune Social History Tobacco Use Types Packs/Day Years [...] Sign Reading Time Taken Comments Blood Pressure - - Pulse - - Temperature 36.5 ??C (97.7 ??F) 03/13/2020 3 :41 PM EST patient reports Respiratory Rate - - Oxygen Saturation - - Inhaled Oxygen Concentration - - Weight 80.7 kg (178 lb) 03/13/2020 3:41 PM EST patient reports Height 182.9 cm (6' 0.01) 03/13/2020 3 :41 PM EST reported Body Mass Index 24.14 03/13/2020 3:41 PM EST documented in this encounter Progress Notes * Adiel Mooney MD - 03/13/2020 4:00 PM EST ESTABLISHED PATIENT VISIT VIDEO VISIT I. HISTORY a. Reason(s) for Visit: Mahamed Dale 39 y.o. male who presents today due to complaint(s) of: Chief Complaint Patient presents with ??? Follow-up b. History of Present Illness:[] UC: on mesalamine and imuran. Followed by Dr Grant. ?? AIH/PSC: followed by Dr Nava. 08/2019 labs all stable ?? ADD: pt seen by Dr Chavez on 01/09 (see note from details) for concerns for ADD and impact on his work. Started on Adderall 10mg daily at that time. States that has not really noticed a difference positive or negative. Was a very busy time at work recently. Has not noted much improvement but has noticed some mild difficulty sleeping. Noticed colder feet and hands on it. c. Review of Systems: Constitutional - no fevers, chills, weight loss or gain, fatigue Cardiovascular - No CP, palpitations, angina, MCNULTY, SOB Respiratory - No SOB, MCNULTY, wheeze, cough, sputum production HEENT - No diffculty swallowing, hearing, No nasal congestion or postnasal drip Gastrointestinal - No abdominal pain, nausea, GERD, constipation, diarrhea, blood in stool Musculoskeletal - No weakness, pain at rest or with movement All other systems negative d. PMH Patient Active Problem List Diagnosis ??? PSC (primary sclerosing cholangitis) ??? Healthcare maintenance ??? Hepatitis, autoimmune Diagnosed in 2001 based on LFTs elevated ??? Ulcerative colitis Diagnosed in 1996; On AZT and mesalamine No significant flare-ups since 2000 Soc: Social History Tobacco Use ??? Smoking status: Never Smoker ??? Smokeless tobacco: Never Used Substance Use Topics ??? Alcohol use: No Frequency: Never II. PHYSICAL EXAM: Temp 36.5 ??C (97.7 ??F) (Temporal) Comment: patient reports Ht 182.9 cm (6' 0.01) Comment: reported Wt 80.7 kg (178 lb) Comment: patient reports BMI 24.14 kg/m?? General - No acute distress, conversing without difficulty. Eyes - EOMI. No scleral icterus Extremities - No clubbing, cyanosis or edema per pt III. ASSESSMENT/PLAN:Mahamed Dale 39 y.o. male presenting for f/u. Pt not responding to stimulantso will trial stimulating antidepressant and see if will get some benefit from that as this potentially could be some depression. Also discussed trial of counseling to help with tools to improve ability to start projects etc. Mahamed was seen today for follow-up . Diagnoses and all orders for this visit: Attention deficit disorder, unspecified hyperactivity presence - Start buPROPion XL (Wellbutrin XL) 150 mg Tablet Extended Release 24 hr; Take 1 tablet by mouth every morning. - D/c stimulant PSC (primary sclerosing cholangitis) - Cont to follow with Dr Nava Ulcerative colitis without complications, unspecified location - Cont to follow with Dr Grant - Repeat colo in 6 mths F/u by myDH in 1 mth documented in this encounter Plan of Treatment Upcoming Encounters Date Type Department Care Team (Late st Contact Info) Description 02/13/2024 1:00 PM EDT Clinical Support Primary Care at [address] [address] 03/12/2024 8:50 AM [place] [address] Camilla Nava MD [facility] [place] [address] 03/20/2024 8:00 AM EST Office [place] [address] Camilla Nava MD [facility] [place] [address] documented as of this encounter Visit Diagnoses Diagnosis Attention deficit disorder, unspecified hyperactivity presence PSC (primary sclerosing cholangitis) Cholangitis Ulcerative colitis without complications, unspecified location Hepatitis, autoimmune Autoimmune hepatitis documented in this encounter Care Teams Power Brake Operator Relationship Specialty Start Date End Date Adiel Mooney MD [facility] [place] [address] PCP - General General Internal Medicine 09/20/18 documented as of this encounter
--- OUTSIDE RECORDS SUMMARY | 2024-02-12 14:15 | XMS_ITS | Encounter Summary ---
Author Organization [facility] [place] [address] Care Team Providers Care Fruit I Farmworker Name Role Phone Adiel Mooney MD Primary Care Provider [phone] Encounter Details Date Type Department Care Team (Latest Contact Info) Description 08/12/2020 10:10 AM EDT - 08/12/2020 1:10 PM EDT Hospital Encounter [place] [address] Micah Dowling MD [facility] [place] [address] Discharge Disposition: Home Social History Tobacco Use [...] Sign Reading Time Taken Comments Blood Pressure 122/68 08/12/2020 12:40 PM EDT Pulse 79 08/12/2020 12:20 PM EDT Temperature 36.9 ??C (98.4 ??F) 08/12/2020 10:21 AM E DT Respiratory Rate 15 08/12/2020 12:40 PM EDT Oxygen Saturation 98% 08/12/2020 12:40 PM EDT Inhaled Oxygen Concentration - [...] occurs, please contact your Doctor. Please call [phone] before 8pm Mon-Fri with problems, questions or concerns. If you call after 8pm or on weekends, call the Hospital at [phone] and ask to speak to the Bottom Hoop Driver pulmonary function technician and the slicing machine operator will contact that person for you. When should you call for help? Call [phone] anytime you think you may need emergency [...] any problems. Where can you learn more? [facility] View your After Visit Summary and more online at [email or web address] If you would like to provide [...] cost to you. Content Version: 12.2 ?? 5510-1427 [employer]. Care instructions adapted under license by [facility]. If you have questions about a medical condition or this instruction, always ask your healthcare professional. [employer] disclaims any warranty or liability for your [...] 180 tablet 2 04/21/2020 12/30/[address] (Shaila) 1.2 gram Tablet, Delayed [...] Dowling MD - 08/12/2020 11:43 AM EDT [facility] [place] Patient Name: Mahamed Dale : [id number] MR#: [id number] Case Date: 08/12/2020 Surgeon: Surgeon(s) and Role: * Micah Dowling MD - Primary Preoperative diagnosis: [place] with chromo with Grant or Dowling please [...] EDT Clinical Support Primary Care at [address] [phone] 03/12/2024 8:50 AM [place] [phone] Camilla Nava MD [facility] [place] [address] 03/20/2024 8:00 AM EST Office Visit [place] [phone] Camilla Nava MD [facility] [place] [address] documented as of this encounter Procedures Procedure Name Priority Date/Time Associated Diagnosis Comments SPECIMEN TO PATHOLOGY Routine 08/12/2020 12:25 PM EDT SPECIMEN TO PATHOLOGY Routine 08/12/2020 12:25 PM EDT SPECIMEN TO PATHOLOGY Routine 08/12/2020 12:25 PM EDT SURGICAL PATHOLOGY REPORT Routine 08/12/2020 12:00 PM EDT Colonoscopy, Biopsy ([id number]) 08/12/2020 11:27 AM EDT [place] with chromo with Grant or Dowling please in May. 60 min. Mod consc sed. NEEDS MIRALAX PREP PLEASE. COLONOSCOPY Routine 08/12/2020 11:22 AM EDT documented in this encounter Results * Specimen to Pathology (08/12/2020 12:25 PM EDT) AP Specimen 08/12/2020 12:2 5 PM EDT 08/12/2020 12:25 PM EDT Narrative [facility] - 08/12/2020 12:25 PM EDT Specimen requisition ordered. ??Separate Pathology report to follow Micah Dowling MD PATHOLOGY/CYTOLOGY O EVELIN Performing Organization Address [facility] [place] [address] * Specimen to Pathology (08/12/2020 12:25 PM EDT) AP Specimen 08/12/2020 12:2 5 PM EDT 08/12/2020 12:25 PM EDT Narrative [facility] - 08/12/2020 12:25 PM EDT Specimen requisition ordered. ??Separate Pathology report to follow Micah Dowling MD PATHOLOGY/CYTOLOGY O EVELIN Performing Organization Address [facility] [place] [address] * Specimen to Pathology (08/12/2020 12:25 PM EDT) AP Specimen 08/12/2020 12:2 5 PM EDT 08/12/2020 12:25 PM EDT Narrative [facility] - 08/12/2020 12:25 PM EDT Specimen requisition ordered. ??Separate Pathology report to follow Micah Dowling MD PATHOLOGY/CYTOLOGY O EVELIN Performing Organization Address [facility] [place] [address] * Surgical Pathology Report (08/12/2020 12:00 PM EDT) Final Diagnosis [id number] ? Location: 4T; EA07; A The signing [...] MD Verified: ??08/17/2020 14:42 ??Pathologist Performed at: ??-[facility] [place]. [place], [place], [place] SPECIMEN(S) SUBMITTED A - directed ascending [...] labeled C1. ??chelsea 08/17/2020 2:42 PM EDT [facility] GI Biopsy 08/12/2020 12:0 0 PM EDT 08/12/2020 12:00 PM EDT GI Biopsy 08/12/2020 12:0 0 PM EDT 08/12/2020 12:00 PM EDT GI Biopsy 08/12/2020 12:0 0 PM EDT 08/12/2020 12:00 PM EDT Micah Dowling MD PATHOLOGY/CYTOLOGY O RDERABLES [facility] [place] [address] * COLONOSCOPY (08/12/2020 11:22 AM EDT) COLONOSCOPY [facility] ___ Procedure Date: 08/12/2020 11:22 AM ? Patient Name: Mahamed Dale ? N: [id number] ? Date of : 1980 ? Age: 40 ? Order #: [id number] ? Instrument Name: [id number] ? ___ Procedure: ? Colonoscopy Indications: ? High risk colon cancer surveillance: ? Ulcerative colitis Patient Profile: ? This is a 40 year old male. This ? patient has ulcerative pancolitis and ? is taking azathioprine and mesalamine. Providers: ? Micah Dowling MD, Bucky Reyes ? Liana Ferrer, Credit Assessment Analyst Referring MD: ?Adiel Mooney MD, Camilla Nava [...] On e 08/12/20 at 1200, Endoscopy (Intra-Procedure) 1132 (Given - Provid er: Dian Brandon RN)1200 (Due) PRN Medication Order 08/10/2020 08/11/2020 08/12/2020 fentaNYL (pf) (50 mcg/mL) multi-dose injection (CANCELED) ONCE PRN, Starting on e 08/12/20 at 1132, Until Tue08/12/20 at 1510, Intra-Operative (Intra-Procedure), Routine 1132 (Given - Provid er: Dian Brandon RN)1135 (Given - Provider: Dian Brandon, RN)1138 (Given - Provider: Dian Brandon, RN)1141 (Given - Provider: Dian Brandon RN)1144 (Given - Provider: Dian Brandon RN) midazolam (pf) (Versed) (1 mg/mL) multi-dose injection (CANCELED) ONCE PRN, Starting on 08/12/20 at 1132, Until Tue08/12/20 at 1510, Intra-Operative (Intra-Procedure), Routine 1132 (Given - Provid er: Dian Brandon RN)1135 (Given - Provider: Dian Brandon, RN)1138 (Given - Provider: Dian Brandon RN)1141 (Given - Provider: Dian Brandon RN)1144 (Given - Provider: Dian Brandon RN)1148 (Given - Provider: Dian Brandon RN) documented in this encounter Care Teams Fruit I Farmworker Relationship Specialty Start Date End Date Adiel Mooney MD [facility] [place] [address] PCP - General General Internal Medicine 09/20/18 documented as of this encounter
--- OUTSIDE RECORDS SUMMARY | 2024-02-12 14:15 | XMS_ITS | Encounter Summary ---
Author Organization [facility] [place] [address] Care Team Providers Care Addiction Therapist Name Role Phone Adiel Mooney MD Primary Care Provider [phone] Reason for Referral * Consultation (Routine) - Closed Specialty Diagnoses / Procedures Referred By Contac t Referred To Contact Gastroenterology Diagnoses Ulcerative colitis without complications, unspecified location Primary sclerosing cholangitis Yumi Grant MD [facility] [place] [address] [facility] End[facility] [address] [place] [address] Referral ID Status Reason Start Date Expiration Date V isits Requested Visits Authorized [id number] Closed Consult, Test & Treat 03/04/2020 03/04/2021 1 1 Encounter Details Date Type Department Care Team (Late st Contact Info) Description 03/04/2020 Orders [place] [address] Yumi Grant MD [facility] [place] [address] Ulcerative colitis without complications, unspecified location; Primary [...] EDT Clinical Support Primary Care at [address] [address] 03/12/2024 8:50 AM [place] [address] Camilla Nava MD [facility] [place] [address] 03/20/2024 8:00 AM EST Office [place] [address] Camilla Nava MD [facility] [place] [address] Scheduled Referrals Name Type Priority Associated Diagnoses Order Schedule Referral to Gastroenterology Outpatient Referral Routine Ulcerative colitis without complications, unspecified location Primary sclerosing cholangitis Ordered: 03/04/2020 documented as of this encounter Visit Diagnoses Diagnosis Ulcerative colitis without complications, unspecified location Primary sclerosing cholangitis Cholangitis documented in this encounter Care Teams Addiction Therapist Relationship Specialty Start Date End Date Adiel Mooney MD [facility] [place] [address] PCP - General General Internal Medicine 09/20/18 documented as of this encounter
--- OUTSIDE RECORDS SUMMARY | 2024-02-12 14:16 | XMS_ITS | Encounter Summary ---
Author Organization [facility] [place] [address] Care Team Providers Care Sterilization Specialist Name Role Phone Adiel Mooney MD Primary Care Provider [phone] Encounter Details Date Type Department Care Team (Latest Contact Info) Description 09/13/2019 7:40 AM EDT Laboratory Appointment Lab [address] [address] Autoimmune hepatitis; PSC (primary sclerosing cholangitis); Primary sclerosing cholangitis Social History Tobacco Use [...] PM EDT Clinical Support Primary Care at [address] [phone] 03/12/2024 8:50 AM [place] [address] Camilla Nava MD [facility] [place] [address] 03/20/2024 8:00 AM EST Office Visit Gastroenterology at [facility] [place] [address] Camilla Nava MD [facility] [place] [address] documented as of this encounter Procedures Procedure Name Priority Date/Time Associated Diagnosis Comments HEMOGRAM Routine 09/13/2019 7:45 AM EDT PSC (primary sclerosing cholangitis) Autoimmune hepatitis DIFFERENTIAL, AUTOMATED Routine 09/13/2019 7:45 AM EDT PSC (primary sclerosing cholangitis) Autoimmune hepatitis HC CBC,PLT & AUTO DIFF Routine 09/13/2019 7:45 AM EDT PSC (primary sclerosing cholangitis) Autoimmune hepatitis HC GAMMA GLUTAMYL TRANSFERASE Routine 09/13/2019 7:45 AM EDT Primary sclerosing cholangitis HC VENIPUNCTURE Routine 09/13/2019 7:45 AM EDT Autoimmune hepatitis documented in this encounter Results * Differential, Automated (09/13/2019 7:45 AM EDT) Neutrophil % 69.2 % [facility] Neutrophil Absolute 4.18 1.70 - 6.10 x10(3)/[facility] Lymph % 21.1 % [facility] Lymphocytes Abs 1.3 0.9 - 3.2 x10(3)/[facility] Monocyte % 8.5 % [facility] Monocyte Abs 0.5 0.3 - 0.9 x10(3)/[facility] Eos % 0.5 % [facility] Eosinophils Abs 0.0 0.0 - 0.4 x10(3)/[facility] Basophil % 0.5 % [facility] Baso Absolute 0.0 0.0 - 0.1 x10(3)/[facility] Immature Gran % 0.20 % [facility] Comment: Immature granulocytes(IG's)percentage and absolute count will include metamyelocytes, myelocytes, and promyelocytes. Blood smears from CBCs yielding IG's will be scanned manually for concordance. If this scan disagrees with the automated IG or if promyelocytes are noted, a manual differential will be performed. Immature Gran Absolute 0.01 0.00 - 0.04 x10(3)/mcL [facility] Blood specimen (specimen) 09/13/2019 7:45 AM EDT 09/13/2019 8:05 AM EDT Narrative Resulting Agency Comment Spec In Lab Camilla Nava MD HEMATOLOGY ORDERABLE S [facility] [place] [address] * (ABNORMAL) Hemogram (09/13/2019 7:45 AM EDT) White Blood Cell 6.0 4.0 - 9.5 x10(3)/mc L [facility] Red Blood Cell 4.93 4.58 - 5.54 x10(6)/mc L [facility] Hemoglobin 15.7 13.7 - 16.5 gm/dL [facility] Hematocrit 44.8 40.5 - 48.5 % [facility] Mean Cell Volume 90.9 82.9 - 93.1 fL [facility] Mean Cell Hemoglobin 31.8 27.5 - 32.1 pg [facility] Mean Cell Hemoglobin Concentration 35.0 32.0 - 35.7 gm/dL [facility] Platelet 210 145 - 357 x10(3)/mc L [facility] RDW Standard Deviation 46.2(H) 36.0 - 45.0 [facility] RDW coefficient of variation 13.8 11.4 - 13.8 % [facility] Mean Platelet Volume 10.3 7.6 - 12.9 [facility] NRBC% auto 0.0 % [facility] NRBC Absolute 0.000 0.000 - 0.000 x10(3)/mc L [facility] Blood specimen (specimen) 09/13/2019 7:45 AM EDT 09/13/2019 8:05 AM EDT Narrative Resulting Agency Comment Spec In Lab Camilla Nava MD HEMATOLOGY ORDERABLE S Performing Organization Address [facility] Co de Phone Number [facility] [place] [address] * Gamma GT (09/13/2019 7:45 AM EDT) Gamma Glutamyl Transferase 35 8 - 61 unit/L [facility] Blood specimen (specimen) 09/13/2019 7:45 AM EDT 09/13/2019 8:05 AM EDT Narrative Resulting Agency Comment Spec In Lab Camilla Nava MD CHEMISTRY ORDERABLES Performing Organization Address [facility] de Phone Number [facility] [place] [address] * Hepatic Function Panel (09/13/2019 7:45 AM EDT) Protein, Total 7.4 6.1 - 8.0 gm/dL [facility] Albumin 4.5 3.2 - 5.2 gm/dL [facility] Aspartate Aminotransferase 15 0 - 39 unit/L [facility] Alanine Aminotransferase 14 0 - 55 unit/L [facility] Alkaline Phosphatase 78 40 - 130 unit/L [facility] Bilirubin, Total 0.4 0.2 - 1.3 mg/dL [facility] Bilirubin, Direct 0.1 0.0 - 0.3 mg/dL [facility] Blood specimen (specimen) 09/13/2019 7:45 AM EDT 09/13/2019 8:05 AM EDT Narrative Resulting Agency Comment Spec In Lab Camilla Nava MD CHEMISTRY ORDERABLES [facility] [place] [address] documented in this encounter Visit Diagnoses Diagnosis Autoimmune hepatitis PSC (primary sclerosing cholangitis) Cholangitis Primary sclerosing cholangitis Cholangitis documented in this encounter Care Teams Sterilization Specialist Relationship Specialty Start Date End Date Adiel Mooney MD [facility] DR GENERAL [place] [address] PCP - General General Internal Medicine 09/20/18 documented as of this encounter
--- OUTSIDE RECORDS SUMMARY | 2024-02-12 14:16 | XMS_ITS | Encounter Summary ---
Author Organization [facility] [place] [address] Care Team Providers Care Can Solderer Name Role Phone Adiel Mooney MD Primary Care Provider [phone] Encounter Details Date Type Department Care Team (Late st Contact Info) Description 03/08/2019 Orders [place] [phone] Camilla Nava MD [facility] [place] [address] Primary sclerosing cholangitis; Autoimmune hepatitis Social History [...] PM EDT Clinical Support Primary Care at [address] [phone] 03/12/2024 8:50 AM [place] [phone] Camilla Nava MD [facility] [place] [address] 03/20/2024 8:00 AM EST Office Visit [place] [address] Camilla Nava MD [facility] [place] [address] documented as of this encounter Visit Diagnoses Diagnosis Primary sclerosing cholangitis Cholangitis Autoimmune hepatitis documented in this encounter Care Teams Can Solderer Relationship Specialty Start Date End Date Adiel Mooney MD [facility] [place] [address] PCP - General General Internal Medicine 09/20/18 documented as of this encounter
--- OUTSIDE RECORDS SUMMARY | 2024-02-12 14:16 | XMS_ITS | Encounter Summary ---
Author Organization [facility] [place] [address] Care Team Providers Care Advertising Solicitor Name Role Phone Adiel Mooney MD Primary Care Provider [phone] Encounter Details Date Type Department Care Team (Late st Contact Info) Description 12/20/2019 Orders [place] [phone] Camilla Nava MD [facility] [place] [address] Primary sclerosing cholangitis Social History Tobacco Use [...] EDT Clinical Support Primary Care at [address] [phone] 03/12/2024 8:50 AM [place] [phone] Camilla Nava MD [facility] [place] [address] 03/20/2024 8:00 AM EST Office Visit [facility] [place] [phone] Camilla Nava MD [facility] [place] [address] documented as of this encounter Results * (ABNORMAL) Comprehensive metabolic panel (non-fasting) (10/08/2022 5:39 PM EDT) Glucose 85 65 - 199 mg/dL [facility] Comment:Diabetes: >=200 mg/d L plus symptoms Blood Urea Nitrogen 10 10 - 20 mg/dL [facility] Creatinine 0.76(L) 0.80 - 1.50 mg/dL [facility] Sodium 143 135 - 145 mmol/L [facility] Potassium 3.9 3.5 - 5.0 mmol/L [facility] Comment: Please note: ??Patients with WBC >100,000 may have falsely elevated Potassium levels. ??For accurate Potassium quantification in these patients send serum separator tube (gold top) for subsequent determinations. ??Contact the Clinical Chemistry Laboratory if there are any questions. Chloride 106 98 - 107 mmol/L [facility] Carbon Dioxide 23 22 - 31 mmol/L [facility] Anion Gap 14 5 - 15 mmol/L [facility] Calcium 9.3 8.5 - 10.5 mg/dL [facility] Protein, Total 7.8 6.1 - 8.0 g/dL [facility] Albumin 4.7 3.2 - 5.2 g/dL [facility] Aspartate Aminotransferase 25 0 - 39 unit/L [facility] Alanine Aminotransferase 33 0 - 55 unit/L [facility] Alkaline Phosphatase 125 40 - 130 unit/L [facility] Bilirubin, Total 0.3 0.2 - 1.3 mg/dL [facility] Est Glomerular Filtration Rate 114 >=60 mL/min/1. 73 m?? [facility] Comment: This patient's estimated GFR [...] In Lab Camilla Nava MD CHEMISTRY ORDERABLES [facility] [place] [address] * Comprehensive metabolic panel (non-fasting) (03/08/2022 12:43 PM EST) Glucose 98 65 - 199 mg/dL [facility] Comment:Diabetes: >=200 mg/d L plus symptoms Blood Urea Nitrogen 10 10 - 20 mg/dL [facility] Creatinine 0.88 0.80 - 1.50 mg/dL [facility] Sodium 137 135 - 145 mmol/L [facility] Potassium 3.7 3.5 - 5.0 mmol/L [facility] Comment: Please note: ??Patients with WBC >100,000 may have falsely elevated Potassium levels. ??For accurate Potassium quantification in these patients send serum separator tube (gold top) for subsequent determinations. ??Contact the Clinical Chemistry Laboratory if there are any questions. Chloride 102 98 - 107 mmol/L [facility] Carbon Dioxide 25 22 - 31 mmol/L [facility] Anion Gap 10 5 - 15 mmol/L [facility] Calcium 9.7 8.5 - 10.5 mg/dL [facility] Protein, Total 7.9 6.1 - 8.0 g/dL [facility] Albumin 4.9 3.2 - 5.2 g/dL [facility] Aspartate Aminotransferase 21 0 - 39 unit/L [facility] Alanine Aminotransferase 20 0 - 55 unit/L [facility] Alkaline Phosphatase 104 40 - 130 unit/L [facility] Bilirubin, Total 0.5 0.2 - 1.3 mg/dL [facility] Est Glomerular Filtration Rate 110 >=60 mL/min/1. 73 m?? [facility] Comment: This patient's estimated GFR was [...] MD CHEMISTRY ORDERABLES [facility] [place] [address] * Comprehensive metabolic panel (non-fasting) (09/11/2021 4:06 PM EDT) Glucose 86 65 - 199 mg/dL [facility] Comment:Diabetes: >=200 mg/d L plus symptoms Blood Urea Nitrogen 12 10 - 20 mg/dL [facility] Creatinine 0.80 0.80 - 1.50 mg/dL [facility] Sodium 138 135 - 145 mmol/L [facility] Potassium 3.9 3.5 - 5.0 mmol/L [facility] Comment: Please note: ??Patients with WBC >100,000 may have falsely elevated Potassium levels. ??For accurate Potassium quantification in these patients send serum separator tube (gold top) for subsequent determinations. ??Contact the Clinical Chemistry Laboratory if there are any questions. Chloride 103 98 - 107 mmol/L [facility] Carbon Dioxide 22 22 - 31 mmol/L [facility] Anion Gap 13 5 - 15 mmol/L [facility] Calcium 9.5 8.5 - 10.5 mg/dL [facility] Protein, Total 7.7 6.1 - 8.0 g/dL [facility] Albumin 4.8 3.2 - 5.2 g/dL [facility] Aspartate Aminotransferase 27 0 - 39 unit/L [facility] Alanine Aminotransferase 28 0 - 55 unit/L [facility] Alkaline Phosphatase 107 40 - 130 unit/L [facility] Bilirubin, Total 0.5 0.2 - 1.3 mg/dL [facility] Est Glomerular Filtration Rate 110 >=60 mL/min/1. 73 m?? [facility] [...] MD CHEMISTRY ORDERABLES [facility] [place] [address] * (ABNORMAL) Comprehensive metabolic panel (non-fasting) (03/09/2021 8:45 AM EST) Glucose 93 65 - 199 mg/dL [facility] Comment:Diabetes: >=200 mg/d L plus symptoms Blood Urea Nitrogen 10 10 - 20 mg/dL [facility] Creatinine 0.79(L) 0.80 - 1.50 mg/dL [facility] Sodium 142 135 - 145 mmol/L [facility] Potassium 4.4 3.5 - 5.0 mmol/L [facility] Comment: Please note: ??Patients with WBC >100,000 may have falsely elevated Potassium levels. ??For accurate Potassium quantification in these patients send serum separator tube (gold top) for subsequent determinations. ??Contact the Clinical Chemistry Laboratory if there are any questions. Chloride 106 98 - 107 mmol/L [facility] Carbon Dioxide 28 22 - 31 mmol/L [facility] Anion Gap 8 5 - 15 mmol/L [facility] Calcium 9.7 8.5 - 10.5 mg/dL [facility] Protein, Total 7.6 6.1 - 8.0 g/dL [facility] Albumin 4.7 3.2 - 5.2 g/dL [facility] Aspartate Aminotransferase 15 0 - 39 unit/L [facility] Alanine Aminotransferase 15 0 - 55 unit/L [facility] Alkaline Phosphatase 80 40 - 130 unit/L [facility] Bilirubin, Total 0.4 0.2 - 1.3 mg/dL [facility] Est Glomerular Filtration Rate 112 >=60 mL/min/1. 73 m?? [facility] [...] MD CHEMISTRY ORDERABLES [facility] [place] [address] * (ABNORMAL) Comprehensive metabolic panel (non-fasting) (09/12/2020 [...] MD CHEMISTRY ORDERABLES [facility] [place] [address] * (ABNORMAL) Comprehensive metabolic panel (non-fasting) (02/26/2020 9:27 AM EST) Glucose 102 65 - 199 mg/dL [facility] Comment:Diabetes: >=200 mg/d L plus symptoms Blood Urea Nitrogen 9(L) 10 - 20 mg/dL [facility] Creatinine 0.83 0.80 - 1.50 mg/dL [facility] Sodium 138 135 - 145 mmol/L [facility] Potassium 4.0 3.5 - 5.0 mmol/L [facility] Comment: Please note: ??Patients with WBC >100,000 may have falsely elevated Potassium levels. ??For accurate Potassium quantification in these patients send serum separator tube (gold top) for subsequent determinations. ??Contact the Clinical Chemistry Laboratory if there are any questions. Chloride 104 98 - 107 mmol/L [facility] Carbon Dioxide 23 22 - 31 mmol/L [facility] Anion Gap 11 5 - 15 mmol/L [facility] Calcium 9.8 8.5 - 10.5 mg/dL [facility] Protein, Total 7.8 6.1 - 8.0 gm/dL [facility] Albumin 4.7 3.2 - 5.2 gm/dL [facility] Aspartate Aminotransferase 19 0 - 39 unit/L [facility] Alanine Aminotransferase 17 0 - 55 unit/L [facility] Alkaline Phosphatase 90 40 - 130 unit/L [facility] Bilirubin, Total 0.6 0.2 - 1.3 mg/dL [facility] Est Glomerular Filtration Rate 110 >=60 mL/min/1. 73 m?? [facility] Comment: The eGFR was calculated using the CKD-EPI equation. As with all creatinine based estimates of kidney function, eGFR values calculated with the CKD-EPI equation are not accurate in patients with acute kidney failure, extremes of body mass or the acutely ill. [email or web address] [email or web address] eGFR 128 >=60 mL/min/1. 73 m?? [facility] Comment: The eGFR was calculated using the CKD-EPI equation. As with all creatinine based estimates of kidney function, eGFR values calculated with the CKD-EPI equation are not accurate in patients with acute kidney failure, extremes of body mass or the acutely ill. [email or web address] Blood specimen (specimen) 02/26/2020 9:27 AM EST 02/26/2020 9:54 AM EST Narrative Resulting Agency Comment Spec In Lab Camilla Nava MD CHEMISTRY ORDERABLES [facility] [place] [address] documented in this encounter Visit Diagnoses Diagnosis Primary sclerosing cholangitis Cholangitis documented in this encounter Care Teams Advertising Solicitor Relationship Specialty Start Date End Date Adiel Mooney MD [facility] [place] [address] PCP - General General Internal Medicine 09/20/18 documented as of this encounter
--- OUTSIDE RECORDS SUMMARY | 2024-02-12 14:16 | XMS_ITS | Encounter Summary ---
Author Organization [facility] [place] [address] Care Team Providers Care Enrollment Services Dean Name Role Phone Elizabeth Youssef MD Primary Care Provider [phone] Encounter Details Date Type Department Care Team (Latest Contact Info) Description 06/28/2018 5:50 PM EST Laboratory Appointment Lab [address] [place] [address] Autoimmune hepatitis; Primary sclerosing cholangitis Social History [...] PM EDT Clinical Support Primary Care at [address] [phone] 03/12/2024 8:50 AM [place] [address] Camilla Nava MD [facility] [place] [address] 03/20/2024 8:00 AM EST Office [place] [address] Camilla Nava MD [facility] DR GASTROENTEROLOGY [place] [phone] documented as of this encounter Procedures Procedure Name Priority Date/Time Associated Diagnosis Comments GAMMA GT Routine 06/28/2018 5:54 PM EST Primary sclerosing cholangitis HEPATIC FUNCTION PANEL Routine 06/28/2018 5:54 PM EST Autoimmune hepatitis documented in this encounter Results * Gamma GT (06/28/2018 5:54 PM EST) Gamma Glutamyl Transferase 55 8 - 61 unit/L [facility] Blood specimen (specimen) 06/28/2018 5:54 PM EST 06/28/2018 6:04 PM EST Narrative Resulting Agency Comment Spec In Lab Camilla Nava MD CHEMISTRY ORDERABLES [facility] [place] [address] * (ABNORMAL) Hepatic Function Panel (06/28/2018 5:54 PM EST) Protein, Total 8.2(H) 6.1 - 8.0 gm/dL [facility] Albumin 5.0 3.2 - 5.2 gm/dL [facility] Aspartate Aminotransferase 20 0 - 39 unit/L [facility] Alanine Aminotransferase 19 0 - 55 unit/L [facility] Alkaline Phosphatase 86 40 - 120 unit/L [facility] Bilirubin, Total 0.3 0.2 - 1.3 mg/dL [facility] Bilirubin, Direct 0.1 0.0 - 0.3 mg/dL [facility] Blood specimen (specimen) 06/28/2018 5:54 PM EST 06/28/2018 6:04 PM EST Narrative Resulting Agency Comment Spec In Lab Camilla Nava MD CHEMISTRY ORDERABLES [facility] [place] [address] documented in this encounter Visit Diagnoses Diagnosis Autoimmune hepatitis Primary sclerosing cholangitis Cholangitis documented in this encounter Care Teams Enrollment Services Dean Relationship Specialty Start Date End Date Elizabeth Youssef MD [facility] [place] [address] PCP - General General Internal Medicine 01/23/182 12/11 documented as of this encounter
--- OUTSIDE RECORDS SUMMARY | 2024-02-12 14:16 | XMS_ITS | Encounter Summary ---
Author Organization [facility] [place] [address] Care Team Providers Care Master Electrician Name Role Phone Adiel Mooney MD Primary Care Provider [phone] Reason for Visit * Reason Onset Date Comments Medication Refill 03/09/2019 Encounter Details Date Type Department Care Team (Late st Contact Info) Description 03/09/2019 Refill [place] [phone] Camilla Nava MD [facility] [place] [address] Autoimmune hepatitis Social History Tobacco Use Types [...] PM EDT Clinical Support Primary Care at [address] [phone] 03/12/2024 8:50 AM [place] [phone] Camilla Nava MD [facility] [place] [address] 03/20/2024 8:00 AM EST Office [place] [address] Camilla Nava MD [facility] [place] [address] documented as of this encounter Visit Diagnoses Diagnosis Autoimmune hepatitis documented in this encounter Care Teams Master Electrician Relationship Specialty Start Date End Date Adiel Mooney MD [facility] [place] [address] PCP - General General Internal Medicine 09/20/18 documented as of this encounter
--- OUTSIDE RECORDS SUMMARY | 2024-02-12 14:16 | XMS_ITS | Encounter Summary ---
Author Organization [facility] [place] [address] Care Team Providers Care De Icer Kit Assembler Name Role Phone Adiel Mooney MD Primary Care Provider [phone] Reason for Visit * Reason Comments ADHD Discuss symptoms Medication Check ADHD Medication Other COVID risks and othe r chronic diseases Hemorrhoids Developed first one? Check Colonoscopy Discuss results Encounter Details Date Type Department Care Team (Late st Contact Info) Description 01/10/2020 9:30 AM EDT Office Visit Internal Medicine at [address] [address] Marion Chavez MD [facility] [place] [address] External hemorrhoid; Attention deficit disorder, unspecified hyperactivity presence; PSC (primary sclerosing cholangitis); Ulcerative colitis without complications, unspecified location Social [...] Sign Reading Time Taken Comments Blood Pressure 122/77 01/10/2020 9:36 AM EDT Pulse 86 01/10/2020 9:36 AM EDT Temperature 36.7 ??C (98.1 ??F) 01/10/2020 9 :36 AM EDT Respiratory Rate - - Oxygen Saturation 100% 01/10/2020 9:3 6 AM EDT Inhaled Oxygen Concentration - - Weight 81.4 kg (179 lb 6.4 oz) 01/10/2020 9:36 AM EDT with shoes on Height 182.9 cm (6') 01/10/2020 9:36 AM EDT approx -patient reported Body Mass Index 24.33 01/10/2020 9:36 AM EDT documented in this encounter Patient Instructions * Patient Instructions* Marion Chavez MD - 01/10/2020 9:30 AM EDT It was nice to meet you today! For your ADD symptoms - We are sending in a prescription for Adderall which is a stimulant medication. This can lower your appetite - try to pay attention to your appetite and your weight. Make sure you are eating enough throughout the day. - This can also affect your sleep, make sure to take the Adderall in the morning - We will have you follow up in 4 weeks For your hemorrhoid: Continue sitz baths and use of Tucks pads. Continue to increase water intake and fiber intake We will reach out to Dr. Grant to discuss your colonoscopy results We would like you also to schedule an annual exam documented in this encounter Progress Notes * Marion Chavez MD - 01/10/2020 9:30 AM EDT ESTABLISHED PATIENT VISIT I. HISTORY a. Reason(s) for Visit: Mahamed Dale 39 y.o. male w/PMH of Ulcerative Colitis on mesalamine and PSC who presents today due to complaint(s) of: Chief Complaint Patient presents with ??? ADHD Discuss symptoms ??? Medication Check ADHD Medication ??? Other COVID risks and other chronic diseases ??? Hemorrhoids Developed first one? Check ??? Colonoscopy Discuss results b. History of Present Illness: #Concern for ADD - always did well in school, even as a child. Struggled with completion of tasks, more manigested in high school when had homework and would say up really late to finish work. Was given extended timeon tests and did much better on exams. In college here at [employer] and was referred to psychologist here. No formal diagnosis, but was given accommodations for longer time on exams and not required to take a foreign language (because of the Rassias method - Recalls the hardest test he did was whenhe was given a letter and asked to name multiple things with that letter - really struggled with this. In high school had a section formal 504 plan (d/t medical condition) and thinks a lot of his accommodations were driven by this. - He is more aware now of his challenges because 10 yo son recently diagnosed w/ ADD/ADHD and sees a lot of parellels with challenges w/ attention/distractibility). Now on stimulant medication - althea lot of improvement. -Also, his has made a list of the problems she has noted with attention - Denies every really struggling with anxiety - Would describe mood as okay. Don't feel depressed. Feels disappointed in not getting things done. Sleep is fine - doesn't get as much done as he should because he's distracted. - Feels significant effect on personal life - is frustrated with him (see list). They have notdone any counseling. - At work: if no deadline, projects will linger. If deadline, will get done but at last minute. PHQ9 Questionnaires Data (Clinic and Pt Entered): Today's value PHQ-9 QUESTIONNAIRE (AMB) 01/10/2020 PHQ - 9 Score (Clinic) - PHQ - 9 Score (Patient) 3 (Minimal Depression) Little interest or pleasure (Clinic) - Little interest or pleasure (Patient) Not at all Down, depressed, hopeless (Clinic) - Down, depressed, hopeless (Patient) Not at all Trouble sleeping (Patient) Not at all Tired or no energy (Patient) Not at all Poor appetite or overeating (Patient) Not at all Feeling like a failure (Patient) Several days Trouble concentrating (Patient) More than half the days Moving or speaking slowly (Patient) Not at all Would be better off (Patient) Not at all WILLIAN-7 Questionnaire Score Only 01/10/2020 WILLIAN-7 Score (Patient) 1 (Minimal Anxiety) He understands that Wellbutrin is a possible treatment, but wonders about trial of stimulant as he knows that he will be able to see an immediate effect on whether this helps his symptoms. He denies any history of substance use/abuse. #COVID risks and immunosupression - Currently going to work, employer has asked that everyone who can work remotely be two days in office and then rest at home. They also may be increasing the amount of days at work. Works at [employer]. Not everyone is wearing mask (in cubicles - shoulder height). He is wearing mask. Company is [employer] uiring masks in restrooms. He would prefer to be at home - though to do his job well, he needs also to be at work. Would need to be at work part of one day a week. Is asking about letter for work. #external hemorrhoid - As doing prep for colonoscopy, noticed soreness in his rectal area, after colonoscopy felt hard lump externally. Has been there about a week, less painful now, painful intially to sit and some painw/ defecation. Is color blind, but has noted bright red blood on toilet paper with wiping. . Has been doing sitz baths and ice if very painful. Has been trying to increase fluid and fiber intake - typically only constipated after colonsocopy. No abdominal pain. #Colonoscopy results: - wondering about results c. ROS: See HPI d. PMH Patient Active Problem List Diagnosis [...] use: No Frequency: Never II. PHYSICAL EXAM: There were no vitals taken for this visit. General: alert, oriented, in no acute distress Cardiovascular: RRR, normal S1/S2, no murmurs Lungs: chest symmetric, normal effort, CTABL Abdomen: +BS, soft, non-tender, non-distended, no appreciable hepatomegaly Rectal exam: thrombosed external hemorrhoid III. ASSESSMENT/PLAN:Mahamed Dale 39 y.o. male w/ PMH of UC and PSC presents today for multiple concerns. We discussed the following and plan: There are no diagnoses linked to this encounter. #ADD - Mahamed does appear to have difficulties with attention and distractibility that date back to childhood. Currently he has clear deficits in executive function that include organization and planning,initiating tasks and staying focused and keeping on track. Difficulties with attention can also be seen in disorders such as anxiety or depression, though he does not appear to have current issues with mood or previous history of anxiety and depression. As he has no history of issues w/ substance use - we discussed a trial of stimulant medication using adderall XR. Discussed potential side effects such as appetite suppression and insomnia. Also discussed that this is a controlled substance which should be kept out of reach of children. He will need follow up in one month. - trial of adderall XR - 10 mg daily - consider trial of wellbutrin if adderall is not effective #UC #PSC - He is concerned about his risk of COVID w/ his UC and PSC. We discussed that he is at risk of complications should he be exposed to SARS-CoV and will write a letter to his work recomending good hand hygiene, that everyone in his work area is wearing a mask, that social distancing is followed. If these cannot be followed, we recommend that he work remotely. - We reviewed the pathology results of his surveillance colonoscopy on 01/02 that includes note of low-grade dysplasia in TV colon. We will reach out to Dr. Grant who performed his colonoscopy to discuss follow up for this. #thrombosed hemmhoroid - improving - Continue sitz baths - Tucks pads #Health maintenance - return for annual exam Meds reconciled * Adiel Mooney MD - 01/10/2020 9:30 AM EDT I have seen the patient and reviewed the resident's above history and I agree with the details as written. The assessment and plan were formulated in discussion with me and I agree with them as documented. Pertinent History: Pt wanting to discuss ADHD treatment. Has had struggles with completion with tasks kiara in child andesp in high school. Does not do well at work unless has a deadline. 10 yr old son recently diagnosed with ADHD. No depression or anxiety. Does have trouble getting things done and will get upsetbecause doesn't get things done. UC/psc: on mesalamine and imuran. Wondering about work and covid risk due to imuran. Does have hemorrhoid after colonoscopy Pertinent Exam: Thrombosed hemorrhoid Major issues addressed: ADD -start Adderal 10mg daily Hemorrhoid -sitz baths UC -f/u with Dr Grant regarding colo bx results F/u 1 mth documented in this encounter Plan of Treatment Upcoming Encounters Date Type Department Care Team (Late st Contact Info) Description 02/13/2024 1:00 PM EDT Clinical Support Primary Care at [address] [address] 03/12/2024 8:50 AM [place] [address] Camilla Nava MD [facility] [place] [address] 03/20/2024 8:00 AM EST Office [place] [address] Camilla Nava MD [facility] [place] [address] documented as of this encounter Visit Diagnoses Diagnosis External hemorrhoid External hemorrhoids without mention of complication Attention deficit disorder, unspecified hyperactivity presence PSC (primary sclerosing cholangitis) Cholangitis Ulcerative colitis without complications, unspecified location documented in this encounter Care Teams De Icer Kit Assembler Relationship Specialty Start Date End Date Adiel Mooney MD [facility] [place] [address] PCP - General General Internal Medicine 09/20/18 documented as of this encounter
--- OUTSIDE RECORDS SUMMARY | 2024-02-12 14:16 | XMS_ITS | Encounter Summary ---
Author Organization [facility] [place] [address] Care Team Providers Care Hide Spreader Name Role Phone Adiel Mooney MD Primary Care Provider [phone] Encounter Details Date Type Department Care Team (Late st Contact Info) Description 09/11/2018 [place]phone [place] [phone] Niya Bocanegra Social History Tobacco Use Types Packs/Day Years [...] encounter Miscellaneous Notes * Telephone Encounter - Niki Marcelino - 09/14/2018 2:30 PM EDT Pt returning call. He states that it would be best to call his cell phone during the day [phone]. Please call him back to discuss. * Telephone Encounter - Kaia Treviño - 09/12/2018 2:00 PM EDT Per Inessa I have called patient leaving a message we do not have a staff MD taking new patients. * Telephone Encounter - BocanegraNiya Yumi - 09/11/2018 10:37 AM EDT Route encounter to Admin Home Theater Expert of current PCP Request Details (done by the PSC) Name of Caller: Mahamed Dale Current PCP: Elizabeth Youssef What is the reason for the switch request? Doesn't want a resident, would like to have an MD who will be better able to handle complex medical issues What/Who is the pt???s PCP preference? Adiel Mooney Immediate needs: none Comments: Looking to stay at the [facility]. Review of History (done by ) No issues of concern No shows Previous PCP switches Patient has seen assigned PCP Resolution Switch Approved: Reestablish with: Appointment needs: Switch Declined: Patient may choose to keep their current PCP or seek primary care outside [facility] Other: documented in this encounter Plan of Treatment Upcoming Encounters Date Type Department Care Team (Late st Contact Info) Description 02/13/2024 1:00 PM EDT Clinical Support Primary Care at [address] [address] 03/12/2024 8:50 [place] [phone] Camilla Nava MD [facility] [place] [address] 03/20/2024 8:00 AM EST Office Visit Gastroenterology at [place] [phone] Camilla Nava MD [facility] [place] [address] documented as of this encounter Visit Diagnoses Not on filedocumented in this encounter Care Teams Hide Spreader Relationship Specialty Start Date End Date Adiel Mooney MD [facility] INTERNAL [place] [address] PCP - General General Internal Medicine 09/20/18 documented as of this encounter
--- OUTSIDE RECORDS SUMMARY | 2024-02-12 14:16 | XMS_ITS | Encounter Summary ---
Author Organization [facility] Anjelica mcduffie [place] [id number] Care Team Providers Care Tennis Racket Repairer Name Role Phone Adiel Mooney MD Primary Care Provider [phone] Reason for Referral * Diagnostic Test (Routine) - Closed Specialty Diagnoses / Procedures Referred By Contac t Referred To Contact Radiology Diagnoses PSC (primary sclerosing cholangitis) Procedures MRI Cholangiopancreatography Adiel Mooney MD [facility] [place] [address] [place] [address] Referral ID Status Reason Start Date Expiration Date V isits Requested Visits Authorized [id number] Closed Specialty Service Requested 01/24/2019 04/24/2019 1 1 Reason for Visit * Diagnostic Test (Routine) - Closed Specialty Diagnoses / Procedures Referred By Contac t Referred To Contact Radiology Diagnoses PSC (primary sclerosing cholangitis) Procedures MRI Cholangiopancreatography Adiel Mooney MD [facility] [place] [address] [place] [address] Referral ID Status Reason Start Date Expiration Date V isits Requested Visits Authorized [id number] Closed Specialty Service Requested 01/24/2019 04/24/2019 1 1 Encounter Details Date Type Department Care Team (Latest Contact Info) Description 01/29/2019 6:31 AM EDT - 01/29/2019 11:59 PM EDT Hospital [place] [address] Adiel Mooney MD [facility] [place] [address] PSC (primary sclerosing cholangitis) Discharge Disposition: Home Social History Tobacco Use [...] Sig Dispensed Refills Start Date End Date ursodiol (DAVID-250) 250 mg TabletIndications:Prim jesusita sclerosing cholangitis TAKE 2 TABLETS TWICE A DAY 360 tablet 1 11/20/2018 03/08/2019 mesalamine (APRISO) 0.375 gram Capsule, Sust. Release 24 hrIndications:Ulcerati ve colitis without complications, unspecified location Take 4 capsules by mouth daily. 360 capsule 3 07/06/2018 03/08/2019 azaTHIOprine (IMURAN) 50 mg TabletIndications:Auto immune hepatitis TAKE 2 TABLETS DAILY 180 tablet 2 06/02/2018 02/22/2019 folic acid (FOLVITE) 1 mg TabletIndications:Ulce rative colitis without complications, unspecified location TAKE 1 TABLET DAILY 90 tablet 3 05/01/2018 08/17/2019 documented as of this encounter Plan of Treatment Upcoming Encounters Date Type Department Care Team (Late st Contact Info) Description 02/13/2024 1:00 PM EDT Clinical Support Primary Care at [address] [phone] 03/12/2024 8:50 AM [place] [address] Camilla Nava MD [facility] [place] [address] 03/20/2024 8:00 AM EST Office Visit Gastroenterology at [facility] [place] [address] Camilla Nava MD [facility] [place] [address] documented as of this encounter Procedures Procedure Name Priority Date/Time Associated Diagnosis Comments MRI CHOLANGIOPANCREATOGRAPHY Routine 10/2018 7:48 AM EDT PSC (primary sclerosing cholangitis) documented in this encounter Results * MRI Cholangiopancreatography (01/29/2019 7:48 AM EDT) Anatomical Region Laterality Modality Magnetic Resonan ce Impressions 01/29/2019 9:23 AM EDT The study is limited due to motion artifact, however, there has been no significant interval change in multifocal intrahepatic biliary ductal strictures, consistent with history of primary sclerosing cholangitis. Thank you for letting us participate in the care of this patient. For questions regarding this report, please contact the number below. ? Electronically signed by: Lillie Zacarias [facility] ([phone]), at 01/29/2019 9:23 AM Narrative 01/29/2019 9:23 AM EDT EXAMINATION: MRI CHOLANGIOPANCREATOGRAPHY CLINICAL HISTORY: PSC. ? interval change TECHNIQUE: 3D-MRCP, axial and coronal 2D MRCP, axial T2 fast (turbo) spin-echo with fat saturation, axial 2D T1 weighted in/out phase. 3D MIPS were created. COMPARISON: 02/10/2016 FINDINGS: Study is limited by motion artifact. Liver: Slightly small (13.6 cm craniocaudal). Contour is smooth. No focal signal aberration. Bile ducts: No focal stenosis of the common bile duct, which is normal in caliber. Mild narrowing of the common hepatic duct at the confluence of right and left ducts. Mild beading is noted in the intrahepatic ducts, and the right main duct demonstrates diffuse stenosis, unchanged. Stable stenosis of the superior segmental right biliary duct. Gallbladder: No calculi. Normal wall. No adjacent inflammation. Pancreas: Normal morphology and signal intensity. Pancreatic duct: Normal caliber and configuration. Spleen: Normal size and signal intensity. Adrenal glands: Normal. Kidneys: Normal. Bowel and mesentery: Non-dilated. No inflammatory changes. Lymph nodes: No adenopathy. Osseous structures: No focal marrow signal abnormality. Procedure Note Lillie Zacarias MD - 01/29/2019 EXAMINATION: MRI CHOLANGIOPANCREATOGRAPHY CLINICAL HISTORY: PSC. ? interval change TECHNIQUE: 3D-MRCP, axial and coronal 2D MRCP, axial T2 fast (turbo)spin-echo with fat saturation, axial 2D T1 weighted in/out phase. 3D MIPS werecreated. COMPARISON: 02/10/2016 FINDINGS: Study is limited by motion artifact. Liver: Slightly small (13.6 cm craniocaudal). Contour is smooth. No focalsignal aberration. Bile ducts: No focal stenosis of the common bile duct, which is normalin caliber. Mild narrowing of the common hepatic duct at the confluence ofright and left ducts. Mild beading is noted in the intrahepatic ducts, and theright main duct demonstrates diffuse stenosis, unchanged. Stable stenosis ofthe superior segmental right biliary duct. Gallbladder: No calculi. Normal wall. No adjacent inflammation. Pancreas: Normal morphology and signal intensity. Pancreatic duct: Normal caliber and configuration. Spleen: Normal size and signal intensity. Adrenal glands: Normal. Kidneys: Normal. Bowel and mesentery: Non-dilated. No inflammatory changes. Lymph nodes: No adenopathy. Osseous structures: No focal marrow signal abnormality. IMPRESSION The study is limited due to motion artifact, however, there has been no significant interval change in multifocal intrahepatic biliary ductal strictures, consistent with history of primary sclerosing cholangitis. Thank you for letting us participate in the care of this patient. Forquestions regarding this report, please contact the number below. Adiel Mooney MD IMG MRI ORDERABLES documented in this encounter Visit Diagnoses Diagnosis PSC (primary sclerosing cholangitis) Cholangitis documented in this encounter Care Teams Tennis Racket Repairer Relationship Specialty Start Date End Date Adiel Mooney MD [facility] [place] [address] PCP - General General Internal Medicine 09/20/18 documented as of this encounter
--- OUTSIDE RECORDS SUMMARY | 2024-02-12 14:16 | XMS_ITS | Encounter Summary ---
Author Organization [facility] [place] [address] Care Team Providers Care Food Photographer Name Role Phone Adiel Mooney MD Primary Care Provider [phone] Encounter Details Date Type Department Care Team (Late st Contact Info) Description 01/03/2020 3:00 PM EDT - 01/03/2020 4:00 PM EDT [place] [address] Yumi Grant MD [facility] [place] [address] COLONOSCOPY, DIAGNOSTIC (WRVU 3.26) Social History Tobacco Use Types Packs/Day Years [...] Sign Reading Time Taken Comments Blood Pressure 117/66 01/03/2020 4:00 PM EDT Pulse 86 01/03/2020 4:00 PM EDT Temperature 37.4 ??C (99.4 ??F) 01/03/2020 2:47 PM ED T Respiratory Rate 7 01/03/2020 4:00 PM EDT Oxygen Saturation 97% 01/03/2020 4:00 PM EDT Inhaled Oxygen Concentration - - Weight 81.6 kg (180 lb) 01/03/2020 2:47 PM EDT Height 182.9 cm (6') 01/03/2020 2:47 PM EDT Body Mass Index 24.41 01/03/2020 2:47 PM EDT documented in this encounter Discharge Instructions * Discharge Instructions* Harry Farah RN - 01/03/2020 5:01 PM EDT Colonoscopy: What to Expect at [...] occurs, please contact your Doctor. Please call [phone] before 8pm Mon-Fri with problems, questions or concerns. If you call after 8pm or on weekends, call the Hospital at [phone] and ask to speak to the [employer] button facing machine operator and the continuous wave operator will contact that person for you. When should you call for help? Call [phone] anytime you think you may need emergency [...] Where can you learn more? [facility] View your After Visit Summary and more online at [email or web address] If you would like to provide feedback [...] cost to you. Content Version: 12.2 ?? [id number] [employer]. Care instructions adapted under license by [facility]. If you have questions about a medical condition or this instruction, always ask your healthcare professional. [employer] disclaims any warranty or liability for your use of this information. documented in this encounter Medications at Time of Discharge Medication Sig Dispensed Refills Start Date End Date folic acid (Folvite) 1 mg TabletIndications:Ulc erative colitis without complications, unspecified location Take 1 tablet by mouth daily. 90 tablet 3 08/20/2019 08/22/2020 azaTHIOprine (Imuran) 50 mg TabletIndications:Aut oimmune hepatitis Take 2 tablets by mouth daily. Insurance requires this 30 day prescription to be filled through [facility] 60 tablet 11 05/18/2019 04/16/2020 mesalamine (LIALDA) 1.2 gram Tablet, Delayed Release (E.C.) Take 2 tablets by mouth daily. 180 tablet 3 03/08/2019 02/28/2020 ursodiol (DAVID-250) 250 mg TabletIndications:Alyssa barbie sclerosing cholangitis Take 2 tablets by mouth 2 times daily. 360 tablet 3 03/08/2019 02/19/2020 documented as of this encounter H&P Notes * Rajseh Pablo MD - 01/03/2020 2:58 PM EDT Gastroenterology and Hepatology Pre-Procedure History and Physical Exam Procedure: Colonoscopy: Indication: UC surveillance Patient Active Problem List Diagnosis Code ??? Hepatitis, autoimmune K75.4 ??? Ulcerative colitis K51.90 ??? Healthcare maintenance Z00.00 ??? 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 [...] EDT Clinical Support Primary Care at [address] [address] 03/12/2024 8:50 [place] [address] Camilla Nava MD [facility] [place] [address] 03/20/2024 8:00 AM EST Office [place] [address] Camilla Nava MD [facility] [place] [address] documented as of this encounter Procedures Procedure Name Priority Date/Time Associated Diagnosis Comments SPECIMEN TO PATHOLOGY Routine 01/03/2020 4:53 PM EDT SPECIMEN TO PATHOLOGY Routine 01/03/2020 4:53 PM EDT SPECIMEN TO PATHOLOGY Routine 01/03/2020 4:53 PM EDT SPECIMEN TO PATHOLOGY Routine 01/03/2020 4:53 PM EDT SPECIMEN TO PATHOLOGY Routine 01/03/2020 4:53 PM EDT SURGICAL PATHOLOGY REPORT Routine 01/03/2020 4:20 PM EDT Colonoscopy, Biopsy ([id number]) 01/03/2020 3:37 PM EDT SCREENING Colonoscopy, Remv Lesn, Snare ([id number]) 01/03/2020 3:37 PM EDT SCREENING Colonoscopy, Diagnostic ([id number]) 01/03/2020 3:37 PM EDT SCREENING COLONOSCOPY Routine 01/03/2020 3:32 PM EDT documented in this encounter Results * Specimen to Pathology (01/03/2020 4:53 PM EDT) AP Specimen 01/03/2020 4:53 PM EDT 01/03/2020 4:53 PM EDT Narrative [facility] - 01/03/2020 4:53 PM EDT Specimen requisition ordered. ??Separate Pathology report to follow L Rodney Grant MD PATHOLOGY/CYTOLOGY O EVELIN Performing Organization Address [facility] [place] [place] [address] * Specimen to Pathology (01/03/2020 4:53 PM EDT) AP Specimen 01/03/2020 4:53 PM EDT 01/03/2020 4:53 PM EDT Narrative [facility] - 01/03/2020 4:53 PM EDT Specimen requisition ordered. ??Separate Pathology report to follow L Rodney Grant MD PATHOLOGY/CYTOLOGY O EVELIN Performing Organization Address [facility] [place] [address] * Specimen to Pathology (01/03/2020 4:53 PM EDT) AP Specimen 01/03/2020 4:53 PM EDT 01/03/2020 4:53 PM EDT Narrative [facility] - 01/03/2020 4:53 PM EDT Specimen requisition ordered. ??Separate Pathology report to follow L Rodney Grant MD PATHOLOGY/CYTOLOGY O EVELIN Performing Organization Address [facility] Co de Phone Number [facility] [place] [address] * Specimen to Pathology (01/03/2020 4:53 PM EDT) AP Specimen 01/03/2020 4:53 PM EDT 01/03/2020 4:53 PM EDT Narrative [facility] - 01/03/2020 4:53 PM EDT Specimen requisition ordered. ??Separate Pathology report to follow L Rodney Grant MD PATHOLOGY/CYTOLOGY O EVELIN Performing Organization Address [facility] [place] [place] [address] * Specimen to Pathology (01/03/2020 4:53 PM EDT) AP Specimen 01/03/2020 4:53 PM EDT 01/03/2020 4:53 PM EDT Narrative [facility] - 01/03/2020 4:53 PM EDT Specimen requisition ordered. ??Separate Pathology report to follow L Rodney Grant MD PATHOLOGY/CYTOLOGY O EVELIN Performing Organization Address [facility] de Phone Number [facility] [place] [address] * Surgical Pathology Report (01/03/2020 4:20 PM EDT) Pathologist [facility] Final Diagnosis [id number] ? Location: 4T; EA11; A The signing pathologist has (i) examined the relevant preparation(s) for the specimen(s) and (ii) rendered or confirmed the diagnosis(es). . ?Surgical Pathology DIAGNOSIS A - Cecum, ??biopsy: Colonic mucosa with hyperplastic changes and mild architectural disarray. There is no evidence of dysplasia. B - Ascending colon, ?? polypectomy: Colonic mucosa with hyperplastic changes. There is no evidence of dysplasia. C - TV, biopsy: Colonic mucosa with low-grade dysplasia ?? and tubular architecture ?? (see Discussion). D - Descending colon, biopsy: Colonic mucosa with hyperplastic changes. There is no evidence of dysplasia. E - Sigmoid colon, ??biopsy: Colonic mucosa within normal limits. There is no evidence of dysplasia. Electronically signed by: ??Shanti GIRALDO PhD, Sienna Verified: ??01/08/2020 ?Pathologist Performed at: ??-[facility] Dept. of Pathology, [place], [place] DISCUSSION C - The histology does not permit distinction between a sporadic adenoma and a colitis-associate d dysplastic lesion. Clinical and endoscopic correlation required. Dr. Portillo Glass has reviewed this case and agrees with the diagnosis. The results were communicated by Dr. Sienna Moser to Dr. Jenny Grant via phone at 12:30pm on 01/08/2020. SPECIMEN(S) SUBMITTED A - directed biopsy cecum, biopsy (1) B - polyp AC, excision (1) C - directed biopsy TV, biopsy (1) D - directed biopsies descending colon, biopsy (Multiple) E - directed biopsy sigmoid, biopsy (Multiple) CLINICAL INFORMATION Colonoscopy patient with PSC and UC for surveillance SPECIMEN PROCESSING A - Labeled/Fixative: Directed biopsy cecum, formalin. Quantity/Size: Two, ranging 0.5-1.5 x 0.4 0.7 cm. Tissue Description: Soft, blue highlighted tissues. Sections/Processi ng: Submitted en toto ??in 2 cassettes as follows: ?A1: ??Blue highlighted polypoid tissue ?A2: ??Blue highlighted polypoid tissue inked and serially sectioned B - Labeled/Fixative: Polyp AC, formalin. Quantity/Size: Two, ranging 0.2-0.6 cm. Tissue Description: Soft, highlighted blue and red-brown tissues. Sections/Processi ng: Submitted en toto ??in 1 cassette labeled B1. . SPECIMEN PROCESSING C - Labeled/Fixative: Directed biopsy TV, formalin. Quantity/Size: Single, 0.4 cm. Tissue Description: Soft, blue highlighted tissue. Sections/Processi ng: Submitted en toto ??in 1 cassette labeled C1. D - Labeled/Fixative: Directed biopsies descending, formalin. Quantity/Size: Single, 0.4 cm. Tissue Description: Soft, blue highlighted and swenson tissue. Sections/Processi ng: Submitted en toto ??in 1 cassette labeled D1. E - Labeled/Fixative: Directed biopsy sigmoid, formalin. Quantity/Size: Single, 0.4 cm. Tissue Description: Soft, blue highlighted and swenson tissue. Sections/Processi ng: Submitted en toto ??in 1 cassette labeled E1. ??MLL 01/08/2020 12:41 PM EDT [facility] GI Biopsy 01/03/2020 4:20 PM EDT 01/03/2020 4:20 PM EDT GI Biopsy 01/03/2020 4:20 PM EDT 01/03/2020 4:20 PM EDT GI Biopsy 01/03/2020 4:20 PM EDT 01/03/2020 4:20 PM EDT GI Biopsy 01/03/2020 4:20 PM EDT 01/03/2020 4:20 PM EDT GI Biopsy 01/03/2020 4:20 PM EDT 01/03/2020 4:20 PM EDT L Rodney Grant MD PATHOLOGY/CYTOLOGY O RDERABLES [facility] [place] [address] * COLONOSCOPY (01/03/2020 3:32 PM EDT) COLONOSCOPY [facility] Endoscopy Procedure Date: 01/03/2020 3:32 PM ? Patient Name: Mahamed Dale ? Date of : 1980 ? Age: 39 ? Order #: [id number] ? Instrument Name: [id number] ? Procedure: ? Colonoscopy Indications: ? Follow-up of ulcerative colitis Patient Profile: ? This is a 39 year old male. This ? patient has ulcerative pancolitis, is ? taking mesalamine and is asymptomatic. Providers: ? Jenny Grant MD, Rajesh Colvin. ? Angel Pablo RN, Maida ? Lenard Referring : ?Adiel Mooney MD Medicines: ? Midazolam 6 mg IV, Fentanyl 250 ? micrograms IV, Ondansetron 4 mg IV Complications: ? No immediate complications. Procedure: ? Pre-Anesthesia Assessment: ? - Prior to the procedure, a History ? and Physical was performed, and ? patient medications and allergies ? were reviewed. The patient is ? competent. The risks and benefits of ? the procedure and the sedation ? options and risks were discussed with ? the patient. All questions were ? answered and informed consent was ? obtained. Patient identification and ? proposed procedure were verified by ? the physician in the pre-procedure ? area in the endoscopy suite. Mental ? Status Examination: alert and ? oriented. Airway Examination: normal ? oropharyngeal airway and neck ? mobility. Respiratory Examination: ? clear to auscultation. ASA Grade ? Assessment: II - A patient with mild ? systemic disease. After reviewing the ? risks and benefits, the patient was ? deemed in satisfactory condition to ? undergo the procedure. The anesthesia ? plan was to use moderate sedation / ? analgesia (conscious sedation). ? Immediately prior to administration ? of medications, the patient was ? re-assessed for adequacy to receive ? sedatives. The heart rate, ? respiratory rate, oxygen saturations, ? blood pressure, adequacy of pulmonary ? ventilation, and response to care ? were monitored throughout the ? procedure. The physical status of the ? patient was re-assessed after the ? procedure. ? The procedure, indications, benefits, ? risks [...] and under direct visualization, ? advanced to the terminal ileum. ? Careful inspection was made as the ? colonoscope was withdrawn. The ? colonoscopy was performed without ? difficulty. The patient tolerated the ? procedure well. The quality of the ? bowel preparation was evaluated using ? the BBPS ([place] Bowel Preparation ? Scale) with scores of: Right Colon = ? 3 (entire mucosa seen well with no ? residual staining, small fragments of ? stool or opaque liquid), Transverse ? Colon = 3 (entire mucosa seen well ? with no residual staining, small ? fragments of stool or opaque liquid) ? and Left Colon = 3 (entire mucosa ? seen well with no residual staining, ? small fragments of stool or opaque ? liquid). The total BBPS score equals ? 9. Scope withdrawal time was 45 ? minutes. ? Findings: ? The perianal and digital rectal examinations were ? normal. ? The terminal ileum appeared normal. ? There were patchy areas of very mildly granular ? mucosa found throughout the entire colon. Mucosa ? carefully inspected with high definition white light ? and using dilute methylene blue solution for ? chromoendoscopy. Directed biopsies taken from cecum, ? transverse colon, descending colon, and sigmoid colon ? and sent to pathology in separate jars. ? A 6 mm polyp was found in the ascending colon. The ? polyp was flat. The polyp was removed with a cold ? snare. Resection and retrieval were complete. ? No additional abnormalities were found on ? retroflexion. ? Moderate Sedation: ? I was present during the intraservice time as ? documented by the sedation RN. Impression: ?- The examined portion of the ileum ? was normal. ? - Mild granularity in the entire ? examined colon. Ulcerative colitis is ? in remission. Directed biopsies taken ? from cecum, transverse, descending, ? and sigmoid colon. ? - One 6 mm polyp in the ascending ? colon, removed with a cold snare. ? Resected and retrieved. Recommendation: ?- Await pathology results. ? - Follow-up in IBD Clinic ? - Continue mesalmine. ? Procedure Code(s): ?? --- Professional --- ? 45601, Colonoscopy, flexible; with ? removal of tumor(s), polyp(s), or ? other lesion(s) by snare technique CPT copyright 2019 [employer]. All rights reserved. The codes documented in this report are preliminary and upon him coder review may be revised to meet current compliance requirements. Attending Participation: ? I personally performed the entire procedure. ? I was present during the intraservice time as ? documented by the sedation RN. ? __ L. Rodney Grant MD 01/03/2020 5:04:26 PM Number of Addenda: 0 Note Initiated On: 01/03/2020 3:32 PM PROVATION 01/03/2020 3:32 PM EDT Adiel Mooney MD GENERAL SURGICAL ORD ERABLES PROVATION documented in this encounter Visit Diagnoses Not on filedocumented in this encounter Administered Medications Inactive Administered Medications - up to 3 most recent administrations Medication Order MAR Action Action Date Dose Rate Site fentaNYL 50 mcg/mL multi-dose injection ONCE PRN, Starting on Radhika 01/03/20 at 1537, Until Radhika 01/03/20 at 1948, Intra-Operative (Intra-Procedure), Routine Given 01/03/2020 3:49 PM EDT 50 mcg Given 01/03/2020 3:46 PM EDT 50 mcg Given 01/03/2020 3:43 PM EDT 50 mcg midazolam (PF) (VERSED) multi-dose injection ONCE PRN, Starting on Radhika 01/03/20 at 1537, Until Radhika 01/03/20 at 1948, Intra-Operative (Intra-Procedure), Routine Given 01/03/2020 3:52 PM EDT 1 mg Given 01/03/2020 3:49 PM EDT 1 mg Given 01/03/2020 3:46 PM EDT 1 mg ondansetron (ZOFRAN) injection 4 mg 4 mg, Intravenous, ONCE, 1 dose, On Radhika 01/03/20 at 1615, Endoscopy (Day of Procedure) Given 01/03/2020 3:36 PM EDT 4 mg documented in this encounter Active and Recently Administered Medications Times are shown in EDT. Scheduled Medication Order 01/01/2020 01/02/2020 01/03/2020 ondansetron (ZOFRAN) injection 4 mg (COMPLETED) 4 mg, Intravenous, ONCE, 1 dose, On Radhika 01/03/20 at 1615, Endoscopy (Day of Procedure) 1536 (Given - Provid er: Angel Romeo RN)1615 (Due) PRN Medication Order 01/01/2020 01/02/2020 01/03/2020 fentaNYL 50 mcg/mL multi-dose injection (CANCELED) ONCE PRN, Starting on Radhika 01/03/20 at 1537, Until Radhika 01/03/20 at 1948, Intra-Operative (Intra-Procedure), Routine 1537 (Given - Provid er: Angel Romeo RN - Comment: start moderate sedation)1540 (Given - Provider: Angel Romeo RN - Comment: awake and alert after 1st dose and 3 minutes)1543 (Given - Provider: Angel Romeo RN - Comment: remains awake and alert)1546 (Given - Provider: Angel Romeo RN - Comment: remains awake and alert as getting ready to start exam)1549 (Given - Provider: Angel Romeo RN - Comment: wide awake as getting started with colonoscopy) midazolam (PF) (VERSED) multi-dose injection (CANCELED) ONCE PRN, Starting on Radhika 01/03/20 at 1537, Until Radhika 01/03/20 at 1948, Intra-Operative (Intra-Procedure), Routine 1537 (Given - Provid er: Angel Romeo RN - Comment: see fentanyl same time)1540 (Given - Provider: Angel Romeo RN - Comment: see fentanyl same time)1543 (Given - Provider: Angel Romeo RN - Comment: see fentanyl same time)1546 (Given - Provider: Angel Romeo RN - Comment: see fentanyl same time)1549 (Given - Provider: Angel Romeo RN - Comment: see fentanyl same time)1552 (Given - Provider: Angel Romeo RN - Comment: remains awake but is comfortable) documented in this encounter Care Teams Food Photographer Relationship Specialty Start Date End Date Adiel Mooney MD [facility] [place] [address] PCP - General General Internal Medicine 09/20/18 documented as of this encounter
--- OUTSIDE RECORDS SUMMARY | 2024-02-12 14:16 | XMS_ITS | Encounter Summary ---
Author Organization [facility] [place] [address] Care Team Providers Care Zoning Technician Name Role Phone Adiel Mooney MD Primary Care Provider [phone] Encounter Details Date Type Department Care Team (Latest Contact Info) Description 01/03/2020 2:19 PM EDT - 01/03/2020 5:48 PM EDT Hospital [place] [address] Yumi Grant MD [facility] [place] [address] Discharge Disposition: Home Social History Tobacco Use [...] Sign Reading Time Taken Comments Blood Pressure 120/74 01/03/2020 5:20 PM EDT Pulse 89 01/03/2020 4:53 PM EDT Temperature 37.4 ??C (99.4 ??F) 01/03/2020 2:47 PM ED T Respiratory Rate 16 01/03/2020 5:20 PM EDT Oxygen Saturation 97% 01/03/2020 5:20 PM EDT Inhaled Oxygen Concentration - - [...] occurs, please contact your Doctor. Please call [phone] before 8pm Mon-Fri with problems, questions or concerns. If you call after 8pm or on weekends, call the Hospital at [phone] and ask to speak to the Mine Administrator Supervisor alberene stone setter and the cold header operator will contact that person for you. When should you call for help? Call [phone] anytime you think you may need emergency [...] any problems. Where can you learn more? [email or web address] View your After Visit Summary and more online at [email or web address] If you would like to provide [...] cost to you. Content Version: 12.2 ?? [id number] ClaimReturn. Care instructions adapted under license by [facility]. If you have questions about a medical condition or this instruction, always ask your healthcare professional. [employer] disclaims any warranty or liability for your [...] 30 day prescription to be filled through [facility] 60 tablet 11 05/18/2019 04/16/2020 mesalamine (LIALDA) 1.2 gram Tablet, Delayed Release (E.C.) Take 2 tablets by mouth daily. 180 tablet 3 03/08/2019 02/28/2020 ursodiol (DAVID-250) 250 mg TabletIndications:Alyssa barbie sclerosing cholangitis Take 2 tablets by mouth 2 times daily. 360 tablet 3 03/08/2019 02/19/2020 documented as of this encounter H&P Notes * Rajesh Pablo MD - 01/03/2020 2:58 PM EDT [...] EDT Clinical Support Primary Care at [address] [phone] 03/12/2024 8:50 AM [place] [address] Camilla Nava MD [facility] [place] [address] 03/20/2024 8:00 AM EST Office [place] [address] Camilla Nava MD [facility] [place] [address] documented as of this encounter Procedures Procedure Name Priority Date/Time Associated Diagnosis Comments SPECIMEN TO PATHOLOGY Routine 01/03/2020 4:53 PM EDT SPECIMEN TO PATHOLOGY Routine 01/03/2020 4:53 PM EDT SPECIMEN TO PATHOLOGY Routine 01/03/2020 4:53 PM EDT SPECIMEN TO PATHOLOGY Routine 01/03/2020 4:53 PM EDT SPECIMEN TO PATHOLOGY Routine 01/03/2020 4:53 PM EDT SURGICAL PATHOLOGY REPORT Routine 01/03/2020 4:20 PM EDT Colonoscopy, Biopsy ([id number]) 01/03/2020 3:37 PM EDT SCREENING Colonoscopy, Remv Lesn, Snare ([id number]) 01/03/2020 3:37 PM EDT SCREENING Colonoscopy, Diagnostic ([id number]) 01/03/2020 3:37 PM EDT SCREENING COLONOSCOPY Routine 01/03/2020 3:32 PM EDT documented in this encounter Results * Specimen to Pathology (01/03/2020 4:53 PM EDT) AP Specimen 01/03/2020 4:53 PM EDT 01/03/2020 4:53 PM EDT Narrative [facility] - 01/03/2020 4:53 PM EDT Specimen requisition ordered. ??Separate Pathology report to follow L Rodney Grant MD PATHOLOGY/CYTOLOGY O EVELIN Performing Organization Address [facility] [place] [address] * Specimen to Pathology (01/03/2020 4:53 PM EDT) AP Specimen 01/03/2020 4:53 PM EDT 01/03/2020 4:53 PM EDT Narrative [facility] - 01/03/2020 4:53 PM EDT Specimen requisition ordered. ??Separate Pathology report to follow L Rodney Grant MD PATHOLOGY/CYTOLOGY O RDKAYODE Performing Organization Address [facility] [place] [address] * Specimen to Pathology (01/03/2020 4:53 PM EDT) AP Specimen 01/03/2020 4:53 PM EDT 01/03/2020 4:53 PM EDT Narrative [facility] - 01/03/2020 4:53 PM EDT Specimen requisition ordered. ??Separate Pathology report to follow L Rodney Grant MD PATHOLOGY/[place] [address] * Specimen to Pathology (01/03/2020 4:53 PM EDT) AP Specimen 01/03/2020 4:53 PM EDT 01/03/2020 4:53 PM EDT Narrative [facility] - 01/03/2020 4:53 PM EDT Specimen requisition ordered. ??Separate Pathology report to follow L Rodney Grant MD PATHOLOGY/CYTOLOGY O RDKAYODE Performing Organization Address [facility] [place] [address] * Specimen to Pathology (01/03/2020 4:53 PM EDT) AP Specimen 01/03/2020 4:53 PM EDT 01/03/2020 4:53 PM EDT Narrative [facility] - 01/03/2020 4:53 PM EDT Specimen requisition ordered. ??Separate Pathology report to follow L Rodney Grant MD PATHOLOGY/CYTOLOGY O EVELIN Performing Organization Address [facility] [place] [address] * Surgical Pathology Report (01/03/2020 4:20 PM EDT) Pathologist [facility] Final Diagnosis [id number] ? Location: 4T; EA11; A The signing [...] PhD, Sienna Verified: ??01/08/2020 ?Pathologist Performed at: ??-[facility] Dept. of Pathology, [place], [place] DISCUSSION C - The histology does [...] labeled E1. ??MLL 01/08/2020 12:41 PM EDT [facility] GI Biopsy 01/03/2020 4:20 PM EDT 01/03/2020 4:20 PM EDT GI Biopsy 01/03/2020 4:20 PM EDT 01/03/2020 4:20 PM EDT GI Biopsy 01/03/2020 4:20 PM EDT 01/03/2020 4:20 PM EDT GI Biopsy 01/03/2020 4:20 PM EDT 01/03/2020 4:20 PM EDT GI Biopsy 01/03/2020 4:20 PM EDT 01/03/2020 4:20 PM EDT L Rodney Grant MD PATHOLOGY/CYTOLOGY O RDERABLES [facility] [place] [address] * COLONOSCOPY (01/03/2020 3:32 PM EDT) COLONOSCOPY [facility] Endoscopy Procedure Date: 01/03/2020 3:32 PM ? Patient Name: Mahamed Dale ? Date of : 1980 ? Age: 39 ? Order #: [id number] ? Instrument Name: [id number] ? Procedure: ? Colonoscopy Indications: ? Follow-up of ulcerative colitis Patient Profile: ? This is a 39 year old male. This ? patient has ulcerative pancolitis, is ? taking mesalamine and is asymptomatic. Providers: ? Jenny Grant MD, Rajesh Penn ? Angel Pablo RN, Maida ? Lenard [...] preparation was evaluated using ? the BBPS ([place] Bowel Preparation ? Scale) with scores of: [...] Procedure Code(s): ?? --- Professional --- ? 38774, Colonoscopy, flexible; with ? removal of tumor(s), polyp(s), or ? other lesion(s) by snare technique CPT copyright 2019 [employer]. All rights reserved. The codes documented in this report are preliminary and upon chemotherapist review may be revised to meet current [...] comfortable) documented in this encounter Care Teams Zoning Technician Relationship Specialty Start Date End Date Adiel Mooney MD [facility] GENERAL [place] [address] PCP - General General Internal Medicine 09/20/18 documented as of this encounter
--- OUTSIDE RECORDS SUMMARY | 2024-02-12 14:16 | XMS_ITS | Encounter Summary ---
Author Organization [facility] [place] [address] Care Team Providers Care Small Business Representative Name Role Phone Adiel Mooney MD Primary Care Provider [phone] Reason for Visit * Reason Comments Medication Refill Encounter Details Date Type Department Care Team (Late st Contact Info) Description 11/19/2018 Refill [place] [phone] Camilla Nava MD [facility] [place] [place] [address] Primary sclerosing cholangitis Social History Tobacco Use [...] EDT Clinical Support Primary Care at [address] [phone] 03/12/2024 8:50 AM [place] [phone] Camilla Nava MD [facility] [place] [address] 03/20/2024 8:00 AM EST Office [place] [address] Camilla Nava MD [facility] [place] [address] documented as of this encounter Visit Diagnoses Diagnosis Primary sclerosing cholangitis Cholangitis documented in this encounter Care Teams Small Business Representative Relationship Specialty Start Date End Date Adiel Mooney MD [facility] [place] [address] PCP - General General Internal Medicine 09/20/18 documented as of this encounter
--- OUTSIDE RECORDS SUMMARY | 2024-02-12 14:16 | XMS_ITS | Encounter Summary ---
Author Organization [facility] [place] [address] Care Team Providers Care Director Database Name Role Phone Adiel Mooney MD Primary Care Provider [phone] Reason for Visit * Reason Comments Medication Refill Encounter Details Date Type Department Care Team (Late st Contact Info) Description 02/22/2019 [place] [address] Jenni Choi APRN [facility] [place] [place] [address] Autoimmune hepatitis Social History Tobacco Use Types [...] EDT Clinical Support Primary Care at [address] [phone] 03/12/2024 8:50 [place] [address] Camilla Nava MD [facility] [place] [address] 03/20/2024 8:00 AM EST Office [place] [address] Camilla Nava MD [facility] [address] documented as of this encounter Visit Diagnoses Diagnosis Autoimmune hepatitis documented in this encounter Care Teams Director Database Relationship Specialty Start Date End Date Adiel Mooney MD [facility] [place] [address] PCP - General General Internal Medicine 09/20/18 documented as of this encounter
--- OUTSIDE RECORDS SUMMARY | 2024-02-12 14:16 | XMS_ITS | Encounter Summary ---
Author Organization [facility] [place] [address] Care Team Providers Care Thiokol Operator Name Role Phone Adiel Mooney MD Primary Care Provider [phone] Reason for Visit * Reason Onset Date Comments Medication Refill 05/18/2019 Encounter Details Date Type Department Care Team (Late st Contact Info) Description 05/18/2019 Refill [place] [phone] Camilla Nava MD [facility] [place] [address] Autoimmune hepatitis Social History Tobacco Use Types [...] EDT Clinical Support Primary Care at [address] [phone] 03/12/2024 8:50 AM [place] [phone] Camilla Nava MD [facility] [place] [address] 03/20/2024 8:00 AM EST Office Visit [place] [address] Camilla Nava MD [facility] [place] [address] documented as of this encounter Visit Diagnoses Diagnosis Autoimmune hepatitis documented in this encounter Care Teams Thiokol Operator Relationship Specialty Start Date End Date Adiel Mooney MD [facility] [place] [address] PCP - General General Internal Medicine 09/20/18 documented as of this encounter
--- OUTSIDE RECORDS SUMMARY | 2024-02-12 14:16 | XMS_ITS | Encounter Summary ---
Author Organization [facility] [place] [address] Care Team Providers Care Robotic Maintenance Technician Name Role Phone Adiel Mooney MD Primary Care Provider [phone] Encounter Details Date Type Department Care Team (Late st Contact Info) Description 03/04/2020 4:00 PM EST Procedure visit [place] [phone] Social History Tobacco Use Types Packs/Day Years [...] EDT Clinical Support Primary Care at [address] [phone] 03/12/2024 8:50 AM EST [place] [phone] Camilla Nava MD [facility] [place] [address] 03/20/2024 8:00 AM EST Office Visit [place] [address] Camilla Nava MD [facility] [place] [address] documented as of this encounter Visit Diagnoses Not on filedocumented in this encounter Care Teams Robotic Maintenance Technician Relationship Specialty Start Date End Date Adiel Mooney MD [facility] GENERAL [place] [address] PCP - General General Internal Medicine 09/20/18 documented as of this encounter
--- OUTSIDE RECORDS SUMMARY | 2024-02-12 14:16 | XMS_ITS | Encounter Summary ---
Author Organization [facility] [place] [address] Care Team Providers Care Brass Cutter Name Role Phone Elizabeth Youssef MD Primary Care Provider Reason for Visit * Reason Onset Date Comments Medication Refill 07/06/2018 Encounter Details Date Type Department Care Team (Late st Contact Info) Description 07/06/2018 [place] [phone] Camilla Nava MD [facility] [place] [address] Ulcerative colitis without complications, unspecified location Social [...] EDT Clinical Support Primary Care at [address] [phone] 03/12/2024 8:50 AM [place] [phone] Camilla Nava MD [facility] [place] [address] 03/20/2024 8:00 AM EST Office Visit Gastroenterology at [facility] [place] [address] Camilla Nava MD [facility] [place] [address] documented as of this encounter Visit Diagnoses Diagnosis Ulcerative colitis without complications, unspecified location documented in this encounter Care Teams Brass Cutter Relationship Specialty Start Date End Date Elizabeth Youssef MD [facility] GENERAL [place] [address] PCP - General General Internal Medicine 01/23/182 12/11 documented as of this encounter
--- OUTSIDE RECORDS SUMMARY | 2024-02-12 14:16 | XMS_ITS | Encounter Summary ---
Author Organization [facility] [place] [address] Care Team Providers Care Brickmason Contractor Name Role Phone Adiel Mooney MD Primary Care Provider [phone] Encounter Details Date Type Department Care Team (Latest Contact Info) Description 09/28/2018 8:55 AM EDT Laboratory Appointment Lab [address] [address] Autoimmune hepatitis; PSC (primary sclerosing [...] EDT Clinical Support Primary Care at [address] [phone] 03/12/2024 8:50 AM [place] [address] Camilla Nava MD [facility] [place] [address] 03/20/2024 8:00 AM EST Office Visit Gastroenterology at [place] [address] Camilla Nava MD [facility] [place] [address] documented as of this encounter Procedures Procedure Name Priority Date/Time Associated Diagnosis Comments HEMOGRAM Routine 09/28/2018 9:05 AM EDT PSC (primary sclerosing cholangitis) Autoimmune hepatitis DIFFERENTIAL, AUTOMATED Routine 09/28/2018 9:05 AM EDT PSC (primary sclerosing cholangitis) Autoimmune hepatitis CBC (WITH DIFF) Routine 09/28/2018 9:05 AM EDT PSC (primary sclerosing cholangitis) Autoimmune hepatitis GAMMA GT Routine 09/28/2018 9:05 AM EDT Primary sclerosing cholangitis HEPATIC FUNCTION PANEL Routine 09/28/2018 9:05 AM EDT Autoimmune hepatitis documented in this encounter Results * Differential, Automated (09/28/2018 9:05 AM EDT) Neutrophil % 75.2 % [facility] Neutrophil Absolute 5.70 1.70 - 6.10 x10(3)/[facility] Lymph % 14.5 % [facility] Lymphocytes Abs 1.1 0.9 - 3.2 x10(3)/[facility] Monocyte % 8.2 % [facility] Monocyte Abs 0.6 0.3 - 0.9 x10(3)/[facility] Eos % 1.2 % [facility] Eosinophils Abs 0.1 0.0 - 0.4 x10(3)/[facility] Basophil % 0.5 % [facility] Baso Absolute 0.0 0.0 - 0.1 x10(3)/[facility] Immature Gran % 0.40 % [facility] Comment: Immature granulocytes(IG's)percentage and absolute count will include metamyelocytes, myelocytes, and promyelocytes. Blood smears from CBCs yielding IG's will be scanned manually for concordance. If this scan disagrees with the automated IG or if promyelocytes are noted, a manual differential will be performed. Immature Gran Absolute 0.03 0.00 - 0.04 x10(3)/[facility] Blood specimen (specimen) 09/28/2018 9:05 AM EDT 09/28/2018 9:08 AM EDT Narrative Resulting Agency Comment Spec In Lab Camilla Nava MD HEMATOLOGY ORDERABLE S [facility] [place] [address] * Hemogram (09/28/2018 9:05 AM EDT) White Blood Cell 7.6 4.0 - 9.5 x10(3)/[facility] Red Blood Cell 4.86 4.58 - 5.54 x10(6)/[facility] Hemoglobin 15.5 13.7 - 16.5 gm/dL [facility] Hematocrit 43.8 40.5 - 48.5 % [facility] Mean Cell Volume 90.1 82.9 - 93.1 fL [facility] Mean Cell Hemoglobin 31.9 27.5 - 32.1 pg [facility] Mean Cell Hemoglobin Concentration 35.4 32.0 - 35.7 gm/dL [facility] Platelet 209 145 - 357 x10(3)/[facility] RDW Standard Deviation 43.2 36.0 - 45.0 fL [facility] RDW coefficient of variation 13.2 11.4 - 13.8 % [facility] Mean Platelet Volume 10.1 7.6 - 12.9 fL [facility] NRBC% auto 0.0 % [facility] NRBC Absolute 0.000 0.000 - 0.000 x10(3)/mcL [facility] Blood specimen (specimen) 09/28/2018 9:05 AM EDT 09/28/2018 9:08 AM EDT Narrative Resulting Agency Comment Spec In Lab Camilla Nava MD HEMATOLOGY ORDERABLE S Performing Organization Address [facility] Co hi Phone Number [facility] [place] [address] * (ABNORMAL) Gamma GT (09/28/2018 9:05 AM EDT) Gamma Glutamyl Transferase 65(H) 8 - 61 unit/L [facility] Blood specimen (specimen) 09/28/2018 9:05 AM EDT 09/28/2018 9:08 AM EDT Narrative Resulting Agency Comment Spec In Lab Camilla Nava MD CHEMISTRY ORDERABLES Performing Organization Address [facility] de Phone Number [facility] [place] [address] * Hepatic Function Panel (09/28/2018 9:05 AM EDT) Protein, Total 7.6 6.1 - 8.0 gm/dL [facility] Albumin 4.7 3.2 - 5.2 gm/dL [facility] Aspartate Aminotransferase 19 0 - 39 unit/L [facility] Alanine Aminotransferase 19 0 - 55 unit/L [facility] Alkaline Phosphatase 89 40 - 120 unit/L [facility] Bilirubin, Total 0.6 0.2 - 1.3 mg/dL [facility] Bilirubin, Direct 0.1 0.0 - 0.3 mg/dL [facility] Blood specimen (specimen) 09/28/2018 9:05 AM EDT 09/28/2018 9:08 AM EDT Narrative Resulting Agency Comment Spec In Lab Camilla Nava MD CHEMISTRY ORDERABLES [facility] [place] [address] documented in this encounter Visit Diagnoses Diagnosis Autoimmune hepatitis PSC (primary sclerosing cholangitis) Cholangitis Primary sclerosing cholangitis Cholangitis documented in this encounter Care Teams Brickmason Contractor Relationship Specialty Start Date End Date Adiel Mooney MD [facility] [place] [address] PCP - General General Internal Medicine 09/20/18 documented as of this encounter
--- OUTSIDE RECORDS SUMMARY | 2024-02-12 14:16 | XMS_ITS | Encounter Summary ---
Author Organization [facility] [place] [address] Care Team Providers Care Outside Upholsterer Name Role Phone Elizabeth Youssef MD Primary Care Provider [phone] Reason for Visit * Reason Comments Medication Refill Encounter Details Date Type Department Care Team (Late st Contact Info) Description 05/01/2018 Refill [place] [phone] Camilla Nava MD [facility] [place] [address] Ulcerative colitis without complications, unspecified location Social [...] PM EDT Clinical Support Primary Care at [address] [phone] 03/12/2024 8:50 AM [place] [phone] Camilla Nava MD [facility] [place] [address] 03/20/2024 8:00 AM EST Office Visit Gastroenterology at [facility] [place] [phone] Camilla Nava MD [facility] [place] [address] documented as of this encounter Visit Diagnoses Diagnosis Ulcerative colitis without complications, unspecified location documented in this encounter Care Teams Outside Upholsterer Relationship Specialty Start Date End Date Elizabeth Youssef MD [facility] [place] [address] PCP - General General Internal Medicine 01/23/1808/24 documented as of this encounter
--- OUTSIDE RECORDS SUMMARY | 2024-02-12 14:16 | XMS_ITS | Encounter Summary ---
Author Organization [facility] [place] [address] Care Team Providers Care Composite Laminator Name Role Phone Adiel Mooney MD Primary Care Provider [phone] Reason for Visit * Reason Comments Medication Refill Encounter Details Date Type Department Care Team (Late st Contact Info) Description 02/28/2020 Refill [place] [phone] Camilla Nava MD [facility] [place] [address] Ulcerative colitis without complications, unspecified location Social [...] EDT Clinical Support Primary Care at [address] [phone] 03/12/2024 8:50 AM [place] [phone] Camilla Nava MD [facility] [place] [address] 03/20/2024 8:00 AM EST Office Visit [place] [address] Camilla aNva MD [facility] [place] [address] documented as of this encounter Visit Diagnoses Diagnosis Ulcerative colitis without complications, unspecified location documented in this encounter Care Teams Composite Laminator Relationship Specialty Start Date End Date Adiel Mooney MD [facility] GENERAL INTER[place] [address] PCP - General General Internal Medicine 09/20/18 documented as of this encounter
--- OUTSIDE RECORDS SUMMARY | 2024-02-12 14:16 | XMS_ITS | Encounter Summary ---
Author Organization Formerly [facility] [place] [address] Care Team Providers Care Log Cutter Name Role Phone Adiel Mooney MD Primary Care Provider [phone] Reason for Referral * Diagnostic Test (Routine) - Closed Specialty Diagnoses / Procedures Referred By Contac t Referred To Contact Radiology Diagnoses PSC (primary sclerosing cholangitis) Procedures MRI Cholangiopancreatography Adiel Mooney MD [facility] [place] [address] [place] [address] Referral ID Status Reason Start Date Expiration Date V isits Requested Visits Authorized [id number] Closed Specialty Service Requested 01/24/2019 04/24/2019 1 1 Reason for Visit * Reason Comments Other Transfer of Care ([facility] Youssef) Follow-up Multiple Encounter Details Date Type Department Care Team (Late st Contact Info) Description 01/19/2019 4:00 PM EDT Office [place] [address] Adiel Mooney MD [facility] [address] [place] [address] Healthcare maintenance; Hepatitis, autoimmune; Ulcerative colitis without complications, unspecified location; PSC (primary sclerosing cholangitis) Social History Tobacco Use Types Packs/Day Years [...] Sign Reading Time Taken Comments Blood Pressure 131/83 01/19/2019 4:03 PM EDT Pulse 79 01/19/2019 4:03 PM EDT Temperature 36.9 ??C (98.5 ??F) 01/19/2019 4:03 PM ED T Respiratory Rate - - Oxygen Saturation 99% 01/19/2019 4:03 PM EDT Inhaled Oxygen Concentration - - Weight 83.1 kg (183 lb 3.2 oz) 01/19/2019 4:03 P M EDT Height 183 cm (6' 0.05) 01/19/2019 4:03 PM EDT Body Mass Index 24.81 01/19/2019 4:03 PM EDT documented in this encounter Progress Notes * Adiel Mooney MD - 01/19/2019 4:00 PM EDT ANNUAL PHYSICAL I. HISTORY a. Reason(s) for Visit: Mahamed Dale is 38 y.o. male is here for chronic and acute medical problems and preventive medical care. b. History of Present Illness:Presents with the following concerns UC: on mesalamine and imuran. Colon nl 03/2018 but because of PSC recommend colo in 1 year. AIH/PSC: followed by Dr Nava. On ursodiol 500mg bid. Is due for repeat LFTS. MRI/MRCP not performedsince 2015 Pt states that has some concern about ADHD because son has ADHD. Son and him are similar with having trouble with focus and getting things done at home and less so at work. States at school needed more time to get work done. c. Review of Systems: Constitutional - no fevers, chills, weight loss or gain, fatigue Allergic/Immunologic - no rash, wheeze Cardiovascular - No CP, palpitations, Angina, MCNULTY, SOB Integument/Breast - No lesions, lumps or nodules noted Respiratory - No SOB, MCNULTY, wheeze, cough, sputum production HEENT - No diffculty swallowing, hearing, No nasal congestion or postnasal drip Endocrine - No Polydipsia, Polyuria, Palpitations Eyes - No visual changes, blurriness or visual loss Psychiatric - No sadness, depression, anxiety, anhedonia, suicidal ideation Neurological - No numbness, tingling, loss of sensation, weakness or function of limbs, No headaches Gastrointestinal - No abdominal pain, nausea, GERD, constipation, diarrhea, blood in stool Genitourinary - no abnormal discharge, lumps, masses or nodules present Heme/Lymph - No bleeding, lymph node swelling, night sweats Musculoskeletal - No weakness, pain at rest or with movement All other systems negative d. PHx Patient Active Problem List Diagnosis [...] education level: None Occupational History ??? 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 Financial resource strain: None ??? Food insecurity: Worry: None Inability: None ??? Transportation needs: Medical: None Non-medical: None Tobacco Use ??? Smoking status: Never Smoker ??? Smokeless tobacco: Never Used Substance and Sexual Activity ??? Alcohol use: No Frequency: Never ??? Drug use: No ??? Sexual activity: Yes Partners: Female Lifestyle ??? Physical activity: Days per week: None Minutes per session: None ??? Stress: None Relationships ??? Social connections: Talks on phone: None Gets together: None Attends bahai service: None Active member of club or organization: None Attends meetings of clubs or organizations: None Relationship status: None ??? Intimate partner violence: Fear of current or ex partner: None Emotionally abused: None Physically abused: None Forced sexual activity: None Other Topics Concern ??? 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 Parkinsonism Father 60 ??? Pacemaker Father ??? Inflammatory Bowel Disease Maternal Grandfather ??? Rheumatoid Arthritis Maternal Grandmother ??? Lung Cancer Paternal Grandmother ??? Heart Failure Paternal Grandfather PREVENTION: DT: tdap 05/07 Pneumovax: PPSV 23 next year. Zoster vaccine: consider age 50 Flu: 01/11 Seat Belts: consistent Cholesterol (total/HDL/LDL): 2016: 159/61/84 Colon cancer screening: see HPI HIV: never screened ASA age 50-79: consider age 50 if risk >10% AAA screening: non-smoker PSA: discuss age 55 Hep C (born [id number]): never checked Lung cancer screening: never smoker II. PHYSICAL EXAM: BP 131/83 (BP Location (NBP): Left arm, Patient Position: Sitting, BP Cuff Sizes: Adult (25-34 cm))Comment (BP Cuff Sizes): Long cuff Pulse 79 Temp 36.9 ??C (98.5 ??F) (Oral) Ht 183 cm (6' 0.05) Wt 83.1 kg (183 lb 3.2 oz) SpO2 99% BMI 24.81 kg/m?? General - No apparent distress. ENT - Mouth without lesions. Ears: Tympanic membranes and canals normal, hearing normal. Sinuses: Negative. Oropharynx: moist without lesions Eyes- EOMI. Not [...] MEDICAL DECISION MAKING: Assessment/Plan: Mahamed Dale is 38 y.o. male , here for acute and chronic medical conditions and preventative care. Mahamed was seen today for other and follow-up . Diagnoses and all orders for this visit: Healthcare maintenance - HIV Screen, 4th Generation ([facility]/CGP/APD); Future - HIV Screen, 4th Generation ([facility]/CGP/APD) - See above - Discussed ADHD and could consider wellbutrin if pt wishes. Pt will think about it at this time Hepatitis, autoimmune - Cont imuran Ulcerative colitis without complications, unspecified location - Due for colo in Dec PSC (primary sclerosing cholangitis) - CBC (with Diff); Future - CMP w/fasting Glucose; Future - MRI Cholangiopancreatography; Future - CMP w/fasting Glucose - CBC (with Diff) - Hemogram - Differential, Automated - Will call to get f/u with Dr Nava documented in this encounter Plan of Treatment Upcoming Encounters Date Type Department Care Team (Late st Contact Info) Description 02/13/2024 1:00 PM EDT Clinical Support Primary Care at [address] [phone] 03/12/2024 8:50 AM EST [place] [address] Camilla Nava MD [facility] [place] [address] 03/20/2024 8:00 AM EST Office Visit [place] [address] Camilla Nava MD [facility] [place] [address] documented as of this encounter Procedures Procedure Name Priority Date/Time Associated Diagnosis Comments CMP W/FASTING GLUCOSE Routine 01/19/2019 5:04 PM EDT PSC (primary sclerosing cholangitis) HEMOGRAM Routine 01/19/2019 5:04 PM EDT PSC (primary sclerosing cholangitis) DIFFERENTIAL, AUTOMATED Routine 01/19/2019 5:04 PM EDT PSC (primary sclerosing cholangitis) HC VENIPUNCTURE Routine 01/19/2019 5:04 PM EDT Healthcare maintenance HC CBC,PLT & AUTO DIFF Routine 01/19/2019 5:04 PM EDT PSC (primary sclerosing cholangitis) documented in [...] below. ? Electronically signed by: Lillie Zacarias [facility] ([phone]), at 01/29/2019 9:23 AM Narrative 01/29/2019 9:23 [...] report, please contact the number below. Adiel COLEMAN MRI ORDERABLES * Differential, Automated (01/19/2019 5:04 PM EDT) Pathologist [facility] Neutrophil % 73.9 % [facility] Neutrophil Absolute 5.33 1.70 - 6.10 x10(3)/[facility] Lymph % 16.7 % [facility] Lymphocytes Abs 1.2 0.9 - 3.2 x10(3)/[facility] Monocyte % 8.2 % [facility] Monocyte Abs 0.6 0.3 - 0.9 x10(3)/[facility] Eos % 0.3 % [facility] Eosinophils Abs 0.0 0.0 - 0.4 x10(3)/[facility] Basophil % 0.6 % [facility] Baso Absolute 0.0 0.0 - 0.1 x10(3)/[facility] Immature Gran % 0.30 % [facility] Comment: Immature granulocytes(IG's)percentage and absolute count will include metamyelocytes, myelocytes, and promyelocytes. Blood smears from CBCs yielding IG's will be scanned manually for concordance. If this scan disagrees with the automated IG or if promyelocytes are noted, a manual differential will be performed. Immature Gran Absolute 0.02 0.00 - 0.04 x10(3)/[facility] Blood specimen (specimen) 01/19/2019 5:04 PM EDT 01/19/2019 7:27 PM EDT Narrative Resulting Agency Comment Spec In Lab Adiel Mooney MD HEMATOLOGY ORDERABLE S [facility] [place] [place] [address] * Hemogram (01/19/2019 5:04 PM EDT) Pathologist [facility] White Blood Cell 7.2 4.0 - 9.5 x10(3)/[facility] Red Blood Cell 5.05 4.58 - 5.54 x10(6)/[facility] Hemoglobin 16.0 13.7 - 16.5 gm/dL [facility] Hematocrit 46.9 40.5 - 48.5 % [facility] Mean Cell Volume 92.9 82.9 - 93.1 [facility] Mean Cell Hemoglobin 31.7 27.5 - 32.[address] [facility] Mean Cell Hemoglobin Concentration 34.1 32.0 - 35.7 gm/dL [facility] Platelet 258 145 - 357 x10(3)/[facility] RDW Standard Deviation 43.8 36.0 - [address].0 [facility] RDW coefficient of variation 12.9 11.4 - 13.8 % [facility] Mean Platelet Volume 10.8 7.6 - 12.9 [facility] NRBC% auto 0.0 % [facility] NRBC Absolute 0.000 0.000 - 0.000 x10(3)/[facility] Blood specimen (specimen) 01/19/2019 5:04 PM EDT 01/19/2019 7:27 PM EDT Narrative Resulting Agency Comment Spec In Lab Adiel Mooney MD HEMATOLOGY ORDERABLE S [facility] [place] [address] * HIV Screen, 4th Generation ([facility]/CGP/APD) (01/19/2019 5:04 PM EDT) [facility] HIV Ab/Ag Screen Negative Negative [facility] Comment: This 4th Generation HIV [...] MD CHEMISTRY ORDERABLES [facility] [place] [address] * (ABNORMAL) CMP w/fasting Glucose (01/19/2019 5:04 PM EDT) Glucose Fasting 106(H) 65 - 99 mg/dL [facility] Comment: ?Fasting* Glucose Interpretive Criteria Normal ?65-99 mg/dL Impaired Fasting glucose ?100-125 mg/dL Consistent with Diabetes Mellitus ? >or= 126 mg/dL *Fasting is defined as no caloric intake for at least 8 hours In the absence of unequivocal hyperglycemia a plasma glucose value of >or= 126 mg/dL should be repeated on a subsequent day. Diagnosis and Classification of Diabetes Mellitus, Position Statement from the [place] [employer]. ??Diabetes Care, Volume 33, Supplement 1, Apr 2009 Blood Urea Nitrogen 13 10 - 20 mg/dL [facility] Creatinine 0.85 0.80 - 1.50 mg/dL [facility] Sodium 140 135 - 145 mmol/L [facility] Potassium 4.1 3.5 - 5.0 mmol/L [facility] Comment: Please note: ??Patients with WBC >100,000 may have falsely elevated Potassium levels. ??For accurate Potassium quantification in these patients send serum separator tube (gold top) for subsequent determinations. ??Contact the Clinical Chemistry Laboratory if there are any questions. Chloride 102 98 - 107 mmol/L [facility] Carbon Dioxide 25 22 - 31 mmol/L [facility] Anion Gap 13 5 - 15 mmol/L [facility] Calcium 9.6 8.5 - 10.5 mg/dL [facility] Protein, Total 8.5(H) 6.1 - 8.0 gm/dL [facility] Albumin 5.0 3.2 - 5.2 gm/dL [facility] Aspartate Aminotransferase 20 0 - 39 unit/L [facility] Alanine Aminotransferase 19 0 - 55 unit/L [facility] Alkaline Phosphatase 86 40 - 130 unit/L [facility] Bilirubin, Total 0.5 0.2 - 1.3 mg/dL [facility] Est Glomerular Filtration Rate 110 >=60 mL/min/1. 73 m?? [facility] Comment: The eGFR was calculated using the CKD-EPI equation. As with all creatinine based estimates of kidney function, eGFR values calculated with the CKD-EPI equation are not accurate in patients with acute kidney failure, extremes of body mass or the acutely ill. [email or web address] eGFR 127 >=60 mL/min/1. 73 m?? [facility] Comment: The eGFR was calculated using the CKD-EPI equation. As with all creatinine based estimates of kidney function, eGFR values calculated with the CKD-EPI equation are not accurate in patients with acute kidney failure, extremes of body mass or the acutely ill. [email or web address] Blood specimen (specimen) 01/19/2019 5:04 PM EDT 01/19/2019 7:30 PM EDT Narrative Resulting Agency Comment Spec In Lab Adiel Mooney MD CHEMISTRY ORDERABLES [facility] [place] [address] documented in this encounter Visit Diagnoses Diagnosis Healthcare maintenance Routine general medical examination at a health care facility Hepatitis, autoimmune Autoimmune hepatitis Ulcerative colitis without complications, unspecified location PSC (primary sclerosing cholangitis) Cholangitis PSC (primary sclerosing cholangitis) Cholangitis documented in this encounter Care Teams Log Cutter Relationship Specialty Start Date End Date Adiel Mooney MD [facility] [address] PCP - General General Internal Medicine 09/20/18 documented as of this encounter
--- OUTSIDE RECORDS SUMMARY | 2024-02-12 14:16 | XMS_ITS | Encounter Summary ---
Author Organization [facility] [place] [address] Care Team Providers Care Marketing Copywriter Name Role Phone Elizabeth Youssef MD Primary Care Provider [phone] Encounter Details Date Type Department Care Team (Late st Contact Info) Description 03/28/2018 1:00 PM EST - 03/28/2018 2:00 PM EST Surgery [place] [address] Yumi Grant MD [facility] [place] [address] COLONOSCOPY, DIAGNOSTIC (WRVU 3.26) Social History Tobacco [...] Sign Reading Time Taken Comments Blood Pressure 122/75 03/28/2018 2:00 PM EST Pulse 91 03/28/2018 2:00 PM EST Temperature 37 ??C (98.6 ??F) 03/28/2018 12:34 PM EST Respiratory Rate 13 03/28/2018 2:00 PM EST Oxygen Saturation 97% 03/28/2018 2:00 PM EST Inhaled Oxygen Concentration - - Weight 81.6 kg (180 lb) 03/28/2018 12:34 PM EST Height 182.9 cm (6') 03/28/2018 12:34 PM EST Body Mass Index 24.41 03/28/2018 12:34 PM EST documented in this encounter Discharge Instructions * Discharge Instructions* Tee Hernandez RN - 03/28/2018 2:39 PM EST Please call [phone] before 8pm Mon-Fri with problems, questions or concerns. If you call after 8pm or on weekends, call the Hospital at [phone] and ask to speak to the Construction Inspector airborne operations superintendent and the track laying machine operator will contact that person for you. * Attachments The following attachments cannot be sent through Care Everywhere. * COLONOSCOPY: POST-OP (BENGALI) documented in this encounter Medications at Time of Discharge Medication Sig Dispensed Refills Start Date End Date azaTHIOprine (IMURAN) 50 mg TabletIndications:Auto immune hepatitis Take 2 tablets by mouth daily. 10 tablet 03/25/2018 06/02/2018 APRISO 0.375 gram Capsule, Sust. Release 24 hrIndications:Ulcerati ve colitis without complications, unspecified location TAKE 4 CAPSULES DAILY 360 capsule 2 12/18/2017 07/06/2018 ursodiol (DAVID-250) 250 mg Tablet Take 2 tablets by mouth 2 times daily. 360 tablet 3 12/06/2017 11/19/2018 folic acid (FOLVITE) 1 mg TabletIndications:Ulce rative colitis without complications, unspecified location TAKE 1 TABLET DAILY 90 tablet 3 05/06/2017 05/01/2018 documented as of this encounter H&P Notes * Yumi Grant MD - 03/28/2018 1:24 PM EST Gastroenterology and Hepatology Pre-Procedure History and Physical Exam Procedure: Colonoscopy: Indication: UC sruveillance - PSC Patient Active Problem List Diagnosis Code ??? Hepatitis, autoimmune K75.4 ??? Ulcerative colitis K51.90 ??? Healthcare maintenance Z00.00 EXAM: HEENT: Airway examined, oropharynx clear Mallampati Score: I (soft palate, uvula, fauces, tonsillar pillars visible) LUNGS: Clear to auscultation HEART: Regular rate and rhythm, normal S1, S2 ABDOMEN: Normal bowel sounds, soft, non tender, non distended, A/P Proceed with the planned endoscopic procedure. ASA 1 - Normal health patient Sedation Plan: moderate (conscious sedation) Risks and benefits of the procedure explained to the patient. Consent signed. documented in this encounter Plan of Treatment Upcoming Encounters Date Type Department Care Team (Late st Contact Info) Description 02/13/2024 1:00 PM EDT Clinical Support Primary Care at [address] [phone] 03/12/2024 8:50 AM [place] [address] Camilla Nava MD [facility] [place] [address] 03/20/2024 8:00 AM EST Office Visit [place] [address] Camilla Nava MD [facility] [place] [address] documented as of this encounter Procedures Procedure Name Priority Date/Time Associated Diagnosis Comments SPECIMEN TO PATHOLOGY Routine 03/28/2018 2:30 PM EST SPECIMEN TO PATHOLOGY Routine 03/28/2018 2:24 PM EST SURGICAL PATHOLOGY REPORT Routine 03/28/2018 2:23 PM EST COLONOSCOPY FLEXIBLE, WITH BX (WRVU 3.56) 03/28/2018 1:27 PM EST 2 yr crohns f/u from 02/26/16 (IVCS) - chromo - 60 minutes COLONOSCOPY, DIAGNOSTIC (WRVU 3.26) 03/28/2018 1:27 PM EST 2 yr crohns f/u from 02/26/16 (IVCS) - chromo - 60 minutes COLONOSCOPY Routine 03/28/2018 12:20 PM EST documented in this encounter Results * Specimen to Pathology (03/28/2018 2:30 PM EST) AP Specimen 03/28/2018 2:30 PM EST 03/28/2018 2:48 PM EST Narrative [facility] - 03/28/2018 2:48 PM EST Specimen requisition ordered. ??Separate Pathology report to follow Resulting Agency Comment Spec In Lab L Rodney Grant MD PATHOLOGY/CYTOLOGY O EVELIN Performing Organization Address [facility] [place] [address] * Specimen to Pathology (03/28/2018 2:24 PM EST) AP Specimen 03/28/2018 2:24 PM EST 03/28/2018 2:24 PM EST Narrative [facility] - 03/28/2018 2:24 PM EST Specimen requisition ordered. ??Separate Pathology report to follow L Rodney Grant MD PATHOLOGY/CYTOLOGY O iCoolhuntJOSE Performing Organization Address [facility] de Phone Number [facility] [place] [address] * Surgical Pathology Report (03/28/2018 2:23 PM EST) Final Diagnosis [id number] ? Location: ; EA; A The signing pathologist has (i) examined the relevant preparation(s) for the specimen(s) and (ii) rendered or confirmed the diagnosis(es). . ?Surgical Pathology DIAGNOSIS A - Splenic flexure, ?? biopsy: - ??Colonic mucosa, negative for diagnostic abnormality. B - Sigmoid colon, ??biopsy: - ??Fragments of hyperplastic polyp. CR-PX Electronically signed by: ??Elijah Cortes MD Verified: ??03/30/2018 ?Pathologist Performed at: ??-[facility] Dept. of Pathology, [place], [place] CLINICAL INFORMATION Specimen Submitted: A - Splenic flexure targeted biopsy B - Sigmoid colon targeted biopsy Clinical History and Diagnosis: 37-year-old male with UC and PSC for surveillance SPECIMEN PROCESSING A - Labeled/Fixative : Splenic flexure targeted biopsy, formalin. Quantity/Size: Two, 0.1-0.4 cm. Tissue Description: Soft, swenson tissues. Sections/Process ing: Submitted en toto ??in 1 cassette labeled A1. B - Labeled/Fixative : Sigmoid colon targeted biopsy, formalin. Quantity/Size: Three, 0.2-0.4 cm. Tissue Description: Soft, blue-stained tissues. Sections/Process ing: Submitted en toto ??in 1 cassette labeled B1. ??chelsea 03/30/2018 4:00 PM EST [facility] GI Biopsy 03/28/2018 2:23 PM EST 03/28/2018 2:23 PM EST GI Biopsy 03/28/2018 2:23 PM EST 03/28/2018 2:23 PM EST L Rodney Grant MD PATHOLOGY/CYTOLOGY O RDERABLES [facility] [place] [address] * COLONOSCOPY (03/28/2018 12:20 PM EST) COLONOSCOPY [facility] Endoscopy ___ Procedure Date: 03/28/2018 12:20 PM ? Patient Name: Mahamed Dale ? Date of : 1980 ? Age: 37 ? Order #: [id number] ? Instrument Name: [facility]-[id number] ? ___ Procedure: ? Colonoscopy Indications: ? High risk colon cancer surveillance: ? 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 Jenny Grant MD, Suzanne ? Argelia Burrows Referring : ?Camilla Mckeon MD Medicines: ? Midazolam 3.5 mg IV, Fentanyl 175 ? micrograms IV Complications: ? No immediate complications. ___ [...] mobility. Respiratory Examination: ? clear to auscultation. CV ? Examination: normal. ASA Grade ? Assessment: I - A normal, healthy ? patient. After reviewing the risks ? and benefits, the patient was deemed ? in satisfactory condition to undergo ? the procedure. The anesthesia plan ? was to use moderate sedation / ? [...] direct visualization, ? advanced to the terminal ileum, with ? identification of the appendiceal ? orifice and IC valve. Careful ? inspection was made as the ? colonoscope was withdrawn. The ? colonoscopy was performed without ? difficulty. The quality of the bowel ? preparation was evaluated using the ? BBPS ([place] Bowel Preparation Scale) ? with scores of: Right Colon = 3 ? (entire mucosa seen [...] The total BBPS score equals ? 9. The quality of the bowel ? preparation was excellent. Scope ? withdrawal time was 28 minutes. ? Findings: ? The perianal and digital rectal examinations were ? normal. ? There was no evidence of active colitis throughout ? the colon. For chromoendoscopy, a dilute mixture of ? methylene-blue was sprayed in segments after ? examination with white light. At the splenic flexure ? and also at the sigmoid colon, there were two ? separate areas with more prominent circular pits ? (kudo type 2). The sigmoid lesion was well-demarcated ? with clear borders, while the splenic did not. Both ? were 3-4 mm in diameter. Targeted biopsies taken ? separately and sent for pathology in 2 jars. ? The terminal ileum appeared normal. ? Moderate Sedation: ? I was present during the intraservice time as ? documented by the sedation RN. Impression: ?- Ulcerative colitis in remission. ? Chromoendoscopy examination with two ? targeted lesions described above. ? Biopsied. ? - The examined portion of the ileum ? was normal. Recommendation: ?- Await pathology results. ? - Pending final pathology, recommend ? repeat exam in one year. ? Attending Participation: ? I personally performed the entire procedure. ? _ L. Rodney Grant MD 03/28/2018 2:50:00 PM Number of Addenda: 0 Note Initiated On: 03/28/2018 12:20 PM PROVATION 03/28/2018 12:2 0 PM EST Elizabeth Youssef MD GENERAL SURGICAL ORD ERABLES PROVATION documented in this encounter Visit Diagnoses Not on filedocumented in this encounter Administered Medications Inactive Administered Medications - up to 3 most recent administrations Medication Order MAR Action Action Date Dose Rate Site fentaNYL 50 mcg/mL multi-dose injection ONCE PRN, Starting on Tue03/28/18 at 1331, Until Tue03/28/18 at 1704, Intra-Operative (Intra-Procedure), Routine Given 03/28/2018 1:47 PM EST 25 mcg Given 03/28/2018 1:41 PM EST 25 mcg Given 03/28/2018 1:38 PM EST 25 mcg lactated Ringers infusion 100 mL/hr, Intravenous, CONTINUOUS, Starting on Tue03/28/18 at 1300, Until Tue03/28/18 at 1704, Endoscopy (Day of Procedure) midazolam (PF) (VERSED) multi-dose injection ONCE PRN, Starting on Tue03/28/18 at 1331, Until Tue03/28/18 at 1704, Intra-Operative (Intra-Procedure), Routine Given 03/28/2018 1:47 PM EST 0.5 mg Given 03/28/2018 1:41 PM EST 0.5 mg Given 03/28/2018 1:38 PM EST 0.5 mg ondansetron (ZOFRAN) injection 4 mg 4 mg, Intravenous, EVERY 8 HOURS PRN, Starting on 03/28/18 at 1331, Until 03/28/18 at 1704, Nausea, Endoscopy (Day of Procedure) Given 03/28/2018 1:31 PM EST 4 mg documented in this encounter Active and Recently Administered Medications Times are shown in EST. Continuous Medication Order 03/26/2018 03/27/2018 03/28/2018 lactated Ringers infusion 100 mL/hr, Intravenous, CONTINUOUS, Starting on Tue03/28/18 at 1300, Until Tue03/28/18 at 1704, Endoscopy (Day of Procedure) 1300 (Due) PRN Medication Order 03/26/2018 03/27/2018 03/28/2018 fentaNYL 50 mcg/mL multi-dose injection (CANCELED) ONCE PRN, Starting on Tue03/28/18 at 1331, Until Tue03/28/18 at 1704, Intra-Operative (Intra-Procedure), Routine 1331 (Given - Provid er: Lynnette Burrows RN)1335 (Given - Provider: Lynnette Burrows RN)1338 (Given - Provider: Lynnette Burrows RN)1341 (Given - Provider: Lynnette Burrows RN)1347 (Given - Provider: Lynnette Burrows RN) midazolam (PF) (VERSED) multi-dose injection (CANCELED) ONCE PRN, Starting on 03/28/18 at 1331, Until 03/28/18 at 1704, Intra-Operative (Intra-Procedure), Routine 1331 (Given - Provid er: Lynnette Burrows RN)1335 (Given - Provider: Lynnette Burrows RN)1338 (Given - Provider: Lynnette Burrows RN)1341 (Given - Provider: Lynnette Burrows RN)1347 (Given - Provider: Lynnette Burrows RN) ondansetron (ZOFRAN) injection 4 mg 4 mg, Intravenous, EVERY 8 HOURS PRN, Starting on Tue03/28/18 at 1331, Until Tue03/28/18 at 1704, Nausea, Endoscopy (Day of Procedure) 1331 (Given - Provid er: Lynnette Burrows RN) documented in this encounter Care Teams Marketing Copywriter Relationship Specialty Start Date End Date Elizabeth Youssef MD [facility] [place] [address] PCP - General General Internal Medicine 01/23/1808/24 documented as of this encounter
--- OUTSIDE RECORDS SUMMARY | 2024-02-12 14:16 | XMS_ITS | Encounter Summary ---
Author Organization [facility] [place] [address] Care Team Providers Care Show Jumping Instructor Name Role Phone Adiel Mooney MD Primary Care Provider [phone] Reason for Visit * Reason Onset Date Comments Medication Refill 08/17/2019 Medication Refill 08/20/2019 Encounter Details Date Type Department Care Team (Late st Contact Info) Description 08/17/2019 [place] [address] Camilla Nava MD [facility] [place] [address] Ulcerative colitis without complications, unspecified location Social [...] as of this encounter Miscellaneous Notes * Addendum Note - Marybeth Mahmood RN - 08/20/2019 5:24 PM EDTAddended by: MARYBETH MAHMOOD on: 08/20/2019 05:24 PM Modules accepted: Orders documented in this encounter Plan of Treatment Upcoming Encounters Date Type Department Care Team (Late st Contact Info) Description 02/13/2024 1:00 PM EDT Clinical Support Primary Care at [address] [phone] 03/12/2024 8:50 AM [place] [address] Camilla Nava MD [facility] [place] [address] 03/20/2024 8:00 AM EST Office [place] [phone] Camilla Nava MD [facility] [place] [address] documented as of this encounter Visit Diagnoses Diagnosis Ulcerative colitis without complications, unspecified location documented in this encounter Care Teams Show Jumping Instructor Relationship Specialty Start Date End Date Adiel Mooney MD [facility] [place] [address] PCP - General General Internal Medicine 09/20/18 documented as of this encounter
--- OUTSIDE RECORDS SUMMARY | 2024-02-12 14:16 | XMS_ITS | Encounter Summary ---
Author Organization [facility] [place] [address] Care Team Providers Care Rigging Engineer Name Role Phone Adiel Mooney MD Primary Care Provider [phone] Reason for Referral * Diagnostic Test (Routine) - Closed Specialty Diagnoses / Procedures Referred By Contac t Referred To Contact Radiology Diagnoses Primary sclerosing cholangitis Procedures MRI Cholangiopancreatography wwo Contrast Laz Longoria MD [facility] [place] [address] [place] [address] Referral ID Status Reason Start Date Expiration Date V isits Requested Visits Authorized [id number] Closed Specialty Service Requested 02/15/2020 02/28/2020 1 1 Encounter Details Date Type Department Care Team (Late st Contact Info) Description 02/28/2019 4:00 PM EST Office [place] [address] Laz Longoria MD [facility] [place] [address] Primary sclerosing cholangitis Social History [...] Sign Reading Time Taken Comments Blood Pressure 129/75 02/28/2019 4:01 PM EST Pulse 85 02/28/2019 4:01 PM EST Temperature - - Respiratory Rate - - Oxygen Saturation - - Inhaled Oxygen Concentration - - Weight 83.6 kg (184 lb 4.8 oz) 02/28/2019 4:01 P M EST Height 182.9 cm (6') 02/28/2019 4:01 PM EST Body Mass Index 25 02/28/2019 4:01 PM EST documented in this encounter Progress Notes * Laz Longoria MD - 02/28/2019 4:00 PM EST Gastoenterology & Hepatology Follow Up [...] 12/06/17: 5.2 Kpascal; 8% IQR: F0 fibrosis Liver biopsy September 2016: DIAGNOSIS [...] 1600mg bid folic acid aza (for AIH) last colonoscopy 01/2013 normal; normal biopsies, no dysplasia Medications: Outpatient Medications Marked as Taking for the 02/28/19 encounter (Office Visit) with Laz Longoria MD Medication Sig Dispense Refill ??? azaTHIOprine (IMURAN) 50 mg Tablet TAKE 2 TABLETS DAILY 180 tablet 2 ??? ursodiol (DAVID-250) 250 mg Tablet TAKE 2 TABLETS TWICE A DAY 360 tablet 1 ??? mesalamine (APRISO) 0.375 gram Capsule, Sust. Release 24 hr Take 4 capsules by mouth daily. 360capsule 3 ??? folic acid (FOLVITE) 1 mg Tablet TAKE 1 TABLET DAILY 90 tablet 3 ADR/ALLERGIES: Allergies Allergen Reactions ??? Hymenoptera Allergenic Extract Angioedema Generalized swelling in chest and neck. Never any wheese, sob or throat symtpoms. ??? Mefloquine Rash Rash occurred while taking sulfa medication and Mefloquine. Unaware of which gave him a reaction. ??? Sulfa (Sulfonamide Antibiotics) Rash Interval History: Mahamed Dale is a 38 y.o. male who presents for follow up of autoimmune hepatitis/PSC overlap syndrome. Bowels are unchanged. BM once a day or less, no blood. Soft stools. Weight is stable. VITAL SIGNS BP 129/75 (BP Location (NBP): Right arm, Patient Position: Sitting, BP Cuff Sizes: Adult (25-34 cm)) Pulse 85 Ht 182.9 cm (6') Wt 83.6 kg (184 lb 4.8 oz) BMI 25.00 kg/m?? Physical Exam: appears well, in no distress. Recent Results (from the past 72 hour(s)) Hepatic Function Panel Result Value Ref Range Total Protein 8.3 (H) 6.1 - 8.0 gm/dL Albumin 5.0 3.2 - 5.2 gm/dL AST 18 0 - 39 unit/L ALT 18 0 - 55 unit/L Alk Phos 85 40 - 130 unit/L Total Bilirubin 0.5 0.2 - 1.3 mg/dL Bili, Direct 0.1 0.0 - 0.3 mg/dL Gamma GT Result Value Ref Range GGT 54 8 - 61 unit/L Assessment/Plan: 38 y.o. male with UC and autoimmune hepatitis with more recent elevations in alkaline phosphatase suspicious for PSC overlap with AIH. Liver biopsy, while subtle also confirms this suspicion. MRCP isalso consistent. We should continue treatment for the AIH with azathioprine. The question of using ursodiol for PSC comes up. There is data that patients whose alkaline phosphatase responds to ursodiol seem to have better outcomes. We discussed the data that high dose ursodiol is associated with higher mortality. UC is in remission- for now continue current therapy; colo next year. Monitor for worsening diarrhea symptoms. Plan: -Continue mesalamine for UC -Yearly colonoscopy with chromo for colon cancer screening, due in Mar. -Cholangio-carcinoma screening is controversial. We will get yearly MRI/MRCP. -Ursodiol 500mg bid, lft's are normal. -GIF in one year with fibroscan, MRI/MRCP prior, labs q 6 months Greater than 25 minutes of this 30minute visit was spent in counseling and discussion. Laz Longoria MD Section of Gastroenterology & Hepatology [address] [place] [address] Copy: Adiel Mooney MD documented in this encounter Plan of Treatment Upcoming Encounters Date Type Department Care Team (Late st Contact Info) Description 02/13/2024 1:00 PM EDT Clinical Support Primary Care at [place] [phone] 03/12/2024 8:50 AM [place] [address] Laz Longoria MD [facility] [place] [address] 03/20/2024 8:00 AM EST Office [place] [address] Laz Longoria MD [facility] DR GASTROENTEROLOGY [place], [place] [id number] documented as of this encounter Results * MRI Cholangiopancreatography wwo Contrast (02/26/2020 11:20 AM EST) Anatomical Region Laterality Modality Magnetic Resonan ce Impressions 02/26/2020 1:44 PM EST 1. ??No significant change in multifocal intrahepatic biliary ductal strictures, consistent with history of primary sclerosing cholangitis. 2. ??No hepatic mass or evidence of neoplasm. I have personally reviewed the image(s) and the resident's interpretation and agree with the findings, Harry Moreno MD at 02/26/2020 1:44 PM Thank you for letting us participate in the care of this patient. For questions regarding this report, please contact the number below. ? Narrative 02/26/2020 1:44 PM EST EXAMINATION: MRI CHOLANGIOPANCREATOGRAPHY WWO CONTRAST ? CLINICAL HISTORY: Primary sclerosing cholangitis, screen for cholangiocarcinoma TECHNIQUE: 3D-MRCP, axial and coronal 2D MRCP, axial T2 fast (turbo) spin-echo with fat saturation, axial 2D T1 weighted in/out phase. 3D MIPS were created. MRI of the abdomen was performed with images obtained prior to and following the intravenous administration of 16ml of Dotarem using the dynamic liver protocol. COMPARISON: MR from 01/29/2019, 02/10/2016. FINDINGS: Liver: Normal size and signal intensity with no focal signal abnormality or enhancement. Bile ducts: The common bile duct is normal caliber with no focal stenosis. No intraluminal filling defects. Unchanged narrowing of the common hepatic duct at the confluence. Unchanged stenosis of the right main duct and more distal right ducts. Mild beading of the left and right intrahepatic ducts. Gallbladder: No calculi. Normal wall. No adjacent inflammation. Pancreas: Normal signal intensity. Pancreatic duct: Normal caliber and configuration. Spleen: Normal size and signal intensity. Adrenal glands: Normal. Kidneys: Normal. Bowel and mesentery: Non-dilated. No inflammatory changes. Lymph nodes: No adenopathy. Osseous structures: No focal marrow signal abnormality. Procedure Note Harry Moreno MD - 02/26/2020 EXAMINATION: MRI CHOLANGIOPANCREATOGRAPHY WWO CONTRAST CLINICAL HISTORY: Primary sclerosing cholangitis, screen forcholangiocarcinoma TECHNIQUE: 3D-MRCP, axial and coronal 2D MRCP, axial T2 fast (turbo)spin-echo with fat saturation, axial 2D T1 weighted in/out phase. 3D MIPS werecreated. MRI of the abdomen was performed with images obtained prior to andfollowing the intravenous administration of 16ml of Dotarem using the dynamic liverprotocol. COMPARISON: MR from 01/29/2019, 02/10/2016. FINDINGS: Liver: Normal size and signal intensity with no focal signal abnormalityor enhancement. Bile ducts: The common bile duct is normal caliber with no focal stenosis.No intraluminal filling defects. Unchanged narrowing of the common hepaticduct at the confluence. Unchanged stenosis of the right main duct and more distalright ducts. Mild beading of the left and right intrahepatic ducts. Gallbladder: No calculi. Normal wall. No adjacent inflammation. Pancreas: Normal signal intensity. Pancreatic duct: Normal caliber and configuration. Spleen: Normal size and signal intensity. Adrenal glands: Normal. Kidneys: Normal. Bowel and mesentery: Non-dilated. No inflammatory changes. Lymph nodes: No adenopathy. Osseous structures: No focal marrow signal abnormality. IMPRESSION 1. No significant change in multifocal intrahepatic biliary ductalstrictures, consistent with history of primary sclerosing cholangitis. 2. No hepatic mass or evidence of neoplasm. I have personally reviewed the image(s) and the resident's interpretationand agree with the findings, Harry Moreno MD at 02/26/2020 1:44 PM Thank you for letting us participate in the care of this patient. Forquestions regarding this report, please contact the number below. Laz Longoria MD IMG MRI ORDERABLES documented in this encounter Visit Diagnoses Diagnosis Primary sclerosing cholangitis Cholangitis Primary sclerosing cholangitis Cholangitis documented in this encounter Care Teams Rigging Engineer Relationship Specialty Start Date End Date Adiel Mooney MD [facility] [place] [address] PCP - General General Internal Medicine 09/20/18 documented as of this encounter
--- OUTSIDE RECORDS SUMMARY | 2024-02-12 14:16 | XMS_ITS | Encounter Summary ---
Author Organization Formerly [facility] [place] [address] Care Team Providers Care Medical Parasitologist Name Role Phone Adiel Mooney MD Primary Care Provider [phone] Reason for Visit * Reason Comments Medication Refill Encounter Details Date Type Department Care Team (Late st Contact Info) Description 02/19/2020 [place] [phone] Camilla Nava MD [facility] [place] [address] Primary sclerosing cholangitis Social History Tobacco Use [...] EDT Clinical Support Primary Care at [address] [phone] 03/12/2024 8:50 AM [place] [phone] Camilla Nava MD [facility] [place] [address] 03/20/2024 8:00 AM EST Office [place] [address] Camilla Nava MD [facility] [place] [address] documented as of this encounter Visit Diagnoses Diagnosis Primary sclerosing cholangitis Cholangitis documented in this encounter Care Teams Medical Parasitologist Relationship Specialty Start Date End Date Adiel Mooney MD [facility] [place] [address] PCP - General General Internal Medicine 09/20/18 documented as of this encounter
--- OUTSIDE RECORDS SUMMARY | 2024-02-12 14:16 | XMS_ITS | Encounter Summary ---
Author Organization Formerly [facility] [place] [address] Care Team Providers Care Investment Officer Name Role Phone Adiel Mooney MD Primary Care Provider [phone] Reason for Visit * Reason Comments Annual Exam Follow up on a medic ation. Encounter Details Date Type Department Care Team (Late st Contact Info) Description 02/05/2020 9:20 AM EDT Office Visit Internal Medicine at [address] [address] Adiel Mooney MD [facility] [place] [address] Attention deficit disorder, unspecified hyperactivity presence; Healthcare maintenance; PSC (primary sclerosing cholangitis); Ulcerative colitis without [...] Sign Reading Time Taken Comments Blood Pressure 133/77 02/05/2020 9:09 AM EDT Pulse 87 02/05/2020 9:09 AM EDT Temperature 36.3 ??C (97.3 ??F) 02/05/2020 9:09 AM ED T Respiratory Rate 16 02/05/2020 9:09 AM EDT Oxygen Saturation 100% 02/05/2020 9:09 AM EDT Inhaled Oxygen Concentration - - Weight 80.5 kg (177 lb 6.4 oz) 02/05/2020 9:09 A M EDT Height 182.9 cm (6' 0.01) 02/05/2020 9:09 AM ED T Body Mass Index 24.05 02/05/2020 9:09 AM EDT documented in this encounter Progress Notes * Adiel Mooney MD - 02/05/2020 9:20 AM EDT ANNUAL PHYSICAL I. HISTORY a. Reason(s) for Visit: Mahamed Dale is 39 y.o. male is here for chronic and acute medical problems and preventive medical care. b. History of Present Illness:Presents with the following concerns UC: on mesalamine and imuran. Followed by Dr Grant. AIH/PSC: followed by Dr Nava. 08/2019 labs all stable ADD: pt seen by Dr Chavez on 01/09 (see note from details) for concerns for ADD and impact on his work. Started on Adderall 10mg daily at that time. States that has not really noticed a difference positive or negative. Was a very busy time at work recently. c. Review of Systems: Constitutional - no [...] education level: None Occupational History ??? 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 Financial resource strain: None ??? Food insecurity Worry: None Inability: None ??? Transportation needs Medical: None Non-medical: None Tobacco Use ??? Smoking status: Never Smoker ??? Smokeless tobacco: Never Used Substance and Sexual Activity ??? Alcohol use: No Frequency: Never ??? Drug use: No ??? Sexual activity: Yes Partners: Female Lifestyle ??? Physical activity Days per week: None Minutes per session: None ??? Stress: None Relationships ??? Social connections Talks on phone: None Gets together: None Attends presybeterian service: None Active member of club or organization: None Attends meetings of clubs or organizations: None Relationship status: None ??? Intimate partner violence Fear of current or ex partner: None Emotionally abused: None Physically abused: None Forced sexual activity: None Other Topics Concern ??? 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 Parkinsonism Father 60 ??? Pacemaker Father ??? Inflammatory Bowel Disease Maternal Grandfather ??? Rheumatoid Arthritis Maternal Grandmother ??? Lung Cancer Paternal Grandmother ??? Heart Failure Paternal Grandfather PREVENTION: DT: tdap 05/07 Pneumovax: 02/2015 due now. Zoster vaccine: consider age 50 Flu: 01/12 Seat Belts: consistent Cholesterol (total/HDL/LDL): 2016: 159/61/84 Colon cancer screening: see HPI HIV: neg ASA age 50-79: consider age 50 if risk >10% AAA screening: non-smoker PSA: discuss age 55 Hep C: never checked Lung cancer screening: never smoker II. PHYSICAL EXAM: BP 133/77 (BP Location (NBP): Left arm, Patient Position: Sitting, BP Cuff Sizes: Adult (25-34 cm)) Pulse 87 Temp 36.3 ??C (97.3 ??F) (Temporal) Resp 16 Ht 182.9 cm (6' 0.01) Wt 80.5 kg (177 lb 6.4 oz) SpO2 100% BMI 24.05 kg/m?? General - No apparent distress. ENT [...] MEDICAL DECISION MAKING: Assessment/Plan: Mahamed Dale is 39 y.o. male , here for acute and chronic medical conditions and preventative care. Mahamed was seen today for annual exam. Diagnoses and all orders for this visit: Attention deficit disorder, unspecified hyperactivity presence - Will trial increasing dose but if no effect then likely pursue stimulating antidepressant - dextroamphetamine-amphetamine (Adderall XR) 20 mg Capsule, Sust. Release 24 hr; Take 1 capsule bymouth every morning. Healthcare maintenance - Hepatitis C Antibody; Future - See above - Pneumococcal polysaccharide vaccine 23-valent greater than or equal to 2yo subcutaneous/IM PSC (primary sclerosing cholangitis) - Keep f/u appointment with Dr Nava Ulcerative colitis without complications, unspecified location - Will discuss colo results with Dr Nava at his f/u appointment Hepatitis, autoimmune - Cont current meds F/u 1 mth via telehealth documented in this encounter Plan of Treatment Upcoming Encounters Date Type Department Care Team (Late st Contact Info) Description 02/13/2024 1:00 PM EDT Clinical Support Primary Care at [address] [phone] 03/12/2024 8:50 [place] [address] Camilla Nava MD [facility] [place] [address] 03/20/2024 8:00 AM EST Office [place] [address] Camilla Nava MD [facility] [place] [address] documented as of this encounter Results * Hepatitis C Antibody (02/26/2020 9:27 AM EST) Hepatitis C Antibody Negative Negative [facility] Blood specimen (specimen) 02/26/2020 9:27 AM EST 02/26/2020 9:54 AM EST Narrative Resulting Agency Comment Spec In Lab Adiel Mooney MD CHEMISTRY ORDERABLES [facility] [place] [address] documented in this encounter Visit Diagnoses Diagnosis Attention deficit disorder, unspecified hyperactivity presence Healthcare maintenance Routine general medical examination at a health care facility PSC (primary sclerosing cholangitis) Cholangitis Ulcerative colitis without complications, unspecified location Hepatitis, autoimmune Autoimmune hepatitis documented in this encounter Care Teams Investment Officer Relationship Specialty Start Date End Date Adiel Mooney MD [facility] [place] [address] PCP - General General Internal Medicine 09/20/18 documented as of this encounter
--- OUTSIDE RECORDS SUMMARY | 2024-02-12 14:16 | XMS_ITS | Encounter Summary ---
Author Organization [facility] Anjelica mcduffie [place] [id number] Care Team Providers Care Sap Grc Security Name Role Phone Adiel Mooney MD Primary Care Provider [phone] Reason for Referral * Diagnostic Test (Routine) - Closed Specialty Diagnoses / Procedures Referred By Ronal cabrera Referred To Contact Radiology Diagnoses Primary sclerosing cholangitis Procedures MRI Cholangiopancreatography heath Contrast Camilla Nava MD [facility] [place] [address] [place] [address] Referral ID Status Reason Start Date Expiration Date V isits Requested Visits Authorized [id number] Closed Specialty Service Requested 02/15/2020 02/28/2020 1 1 Reason for Visit * Diagnostic Test (Routine) - Closed Specialty Diagnoses / Procedures Referred By Ronal cabrera Referred To Contact Radiology Diagnoses Primary sclerosing cholangitis Procedures MRI Cholangiopancreatography Camilla Swann MD [facility] [place] [address] [place] [address] Referral ID Status Reason Start Date Expiration Date V isits Requested Visits Authorized [id number] Closed Specialty Service Requested 02/15/2020 02/28/2020 1 1 Encounter Details Date Type Department Care Team (Latest Contact Info) Description 02/26/2020 9:30 AM EST - 02/26/2020 11:59 PM EST Hospital [place] [phone] Camilla Nava MD [facility] [place] [address] Primary sclerosing cholangitis Discharge Disposition: Home Social [...] Sig Dispensed Refills Start Date End Date ursodioL (Yoli-250) 250 mg TabletIndications:Alyssa barbie sclerosing cholangitis TAKE 2 TABLETS 2 TIMES A DAY BY MOUTH 360 tablet 2 02/19/2020 11/18/2020 dextroamphetamine-amp hetamine (Adderall XR) 20 mg Capsule, Sust. Release 24 hr Take 1 capsule by mouth every morning. 30 capsule 02/05/2020 03/04/2021 folic acid (Folvite) 1 mg TabletIndications:Ulc erative colitis without complications, unspecified location Take 1 tablet by mouth daily. 90 tablet 3 08/20/2019 08/22/2020 azaTHIOprine (Imuran) 50 mg TabletIndications:Aut oimmune hepatitis Take 2 tablets by mouth daily. Insurance requires this 30 day prescription to be [facility] 60 tablet 11 05/18/2019 04/16/2020 mesalamine (LIALDA) 1.2 gram Tablet, Delayed Release (E.C.) Take 2 tablets by mouth daily. 180 tablet 3 03/08/2019 02/28/2020 documented as of this encounter Plan of Treatment Upcoming Encounters Date Type Department Care Team (Late st Contact Info) Description 02/13/2024 1:00 PM EDT Clinical Support Primary Care at [address] [address] 03/12/2024 8:50 AM EST [place] [phone] Camilla Nava MD [facility] [place] [address] 03/20/2024 8:00 AM EST Office Visit [place] [phone] Camilla Nava MD [facility] [place] [address] documented as of this encounter Procedures Procedure Name Priority Date/Time Associated Diagnosis Comments MRI CHOLANGIOPANCREATOGRAPHY WWO CONTRAST Routine 02/26/2020 11:20 AM EST Primary sclerosing cholangitis documented in [...] this report, please contact the number below. Electronically signed by: Harry Moreno MD, [facility]([phone]), at 02/26/2020 1:44 PM Camilla Nava MD IMG MRI ORDERABLES documented in this encounter Visit Diagnoses Diagnosis Primary sclerosing cholangitis Cholangitis documented in this encounter Administered Medications Inactive Administered Medications - up to 3 most recent administrations Medication Order MAR Action Action Date Dose Rate Site gadoterate meglumine (DOTAREM) 0.5 mmol/mL (376.9 mg/mL) injection 16.1 mL 16.1 mL (0.2 mL/kg/dose ? 80.5 kg), Intravenous, ONCE PRN, 1 dose, Starting on 02/26/20 at 1120, Until 02/26/20 at 1120, Per Protocol, Radiology Contrast, Routine Given 02/26/2020 11:20 AM EST 16.1 mLs documented in this encounter Care Teams Sap Grc Security Relationship Specialty Start Date End Date Adiel Mooney MD [facility] [place] [address] PCP - General General Internal Medicine 09/20/18 documented as of this encounter
--- OUTSIDE RECORDS SUMMARY | 2024-02-12 14:16 | XMS_ITS | Encounter Summary ---
Author Organization [facility] [place] [address] Care Team Providers Care Cook Fishing Vessel Name Role Phone Adiel Mooney MD Primary Care Provider [phone] Encounter Details Date Type Department Care Team (Latest Contact Info) Description 02/26/2020 9:10 AM EST Laboratory Appointment Lab [address] [place] [address] Primary sclerosing cholangitis; Healthcare maintenance Social History Tobacco Use Types [...] PM EDT Clinical Support Primary Care at [address] [phone] 03/12/2024 8:50 AM [place] [address] Camilla Nava MD [facility] [place] [address] 03/20/2024 8:00 AM EST Office Visit Gastroenterology at [facility] [place] [address] Camilla Nava MD [facility] [place] [address] documented as of this encounter Procedures Procedure Name Priority Date/Time Associated Diagnosis Comments HEMOGRAM Routine 02/26/2020 9:27 AM EST Primary sclerosing cholangitis DIFFERENTIAL, AUTOMATED Routine 02/26/2020 9:27 AM EST Primary sclerosing cholangitis HC HEPATITIS C ANTIBODY Routine 02/26/2020 9:27 AM EST Healthcare maintenance HC CBC,PLT & AUTO DIFF Routine 0 9:27 AM EST Primary sclerosing cholangitis COMPREHENSIVE METABOLIC PANEL Routine 02/26/2020 9:27 AM EST Primary sclerosing cholangitis documented in this encounter Results * Differential, Automated (02/26/2020 9:27 AM EST) Neutrophil % 72.8 % [facility] Neutrophil Absolute 4.18 1.70 - 6.10 x10(3)/[facility] Lymph % 17.4 % [facility] Lymphocytes Abs 1.0 0.9 - 3.2 x10(3)/[facility] Monocyte % 8.9 % [facility] Monocyte Abs 0.5 0.3 - 0.9 x10(3)/[facility] Eos % 0.2 % [facility] Eosinophils Abs 0.0 0.0 - 0.4 x10(3)/[facility] Basophil % 0.5 % [facility] Baso Absolute 0.0 0.0 - 0.1 x10(3)/[facility] Immature Gran % 0.20 % [facility] Comment: Immature granulocytes(IG's)percentage and absolute count will include metamyelocytes, myelocytes, and promyelocytes. Blood smears from CBCs yielding IG's will be scanned manually for concordance. If this scan disagrees with the automated IG or if promyelocytes are noted, a manual differential will be performed. Immature Gran Absolute 0.01 0.00 - 0.04 x10(3)/[facility] Blood specimen (specimen) 02/26/2020 9:27 AM EST 02/26/2020 9:54 AM EST Narrative Resulting Agency Comment Spec In Lab Camilla Nava MD HEMATOLOGY ORDERABLE S [facility] [place] [address] * Hemogram (02/26/2020 9:27 AM EST) White Blood Cell 5.7 4.0 - 9.5 x10(3)/[facility] Red Blood Cell 4.87 4.58 - 5.54 x10(6)/[facility] Hemoglobin 15.5 13.7 - 16.5 gm/dL [facility] Hematocrit 44.3 40.5 - 48.5 % [facility] Mean Cell Volume 91.0 82.9 - 93.1 fL [facility] Mean Cell Hemoglobin 31.8 27.5 - 32.1 pg [facility] Mean Cell Hemoglobin Concentration 35.0 32.0 - 35.7 gm/dL [facility] Platelet 244 145 - 357 x10(3)/[facility] RDW Standard Deviation 43.0 36.0 - 45.0 [facility] RDW coefficient of variation 13.0 11.4 - 13.8 % [facility] Mean Platelet Volume 10.5 7.6 - 12.9 [facility] NRBC% auto 0.0 % [facility] NRBC Absolute 0.000 0.000 - 0.000 x10(3)/[facility] Blood specimen (specimen) 02/26/2020 9:27 AM EST 02/26/2020 9:54 AM EST Narrative Resulting Agency Comment Spec In Lab Camilla Nava MD HEMATOLOGY ORDERABLE S Performing Organization Address [facility] Co de Phone Number [facility] [place] [address] * Hepatitis C Antibody (02/26/2020 9:27 AM EST) Pathologist [facility] Hepatitis C Antibody Negative Negative [facility] Blood specimen (specimen) 02/26/2020 9:27 AM EST 02/26/2020 9:54 AM EST Narrative Resulting Agency Comment Spec In Lab Adiel Mooney MD CHEMISTRY ORDERABLES Performing Organization Address [facility] de Phone Number [facility] [place] [address] * (ABNORMAL) Comprehensive metabolic panel (non-fasting) (02/26/2020 9:27 AM EST) [facility] Glucose 102 65 - 199 mg/dL [facility] Comment:Diabetes: >=200 mg/d L plus symptoms Blood Urea Nitrogen 9(L) 10 - 20 mg/dL [facility] Creatinine 0.83 0.80 - 1.50 mg/dL [facility] Sodium 138 135 - 145 mmol/L [facility] Potassium 4.0 3.5 - 5.0 mmol/L [facility] Comment: Please note: ??Patients with WBC >100,000 may have falsely elevated Potassium levels. ??For accurate Potassium quantification in these patients send serum separator tube (gold top) for subsequent determinations. ??Contact the Clinical Chemistry Laboratory if there are any questions. Chloride 104 98 - 107 mmol/L [facility] Carbon Dioxide 23 22 - 31 mmol/L [facility] Anion Gap 11 5 - 15 mmol/L [facility] Calcium 9.8 8.5 - 10.5 mg/dL [facility] Protein, Total 7.8 6.1 - 8.0 gm/dL [facility] Albumin 4.7 3.2 - 5.2 gm/dL [facility] Aspartate Aminotransferase 19 0 - 39 unit/L [facility] Alanine Aminotransferase 17 0 - 55 unit/L [facility] Alkaline Phosphatase 90 40 - 130 unit/L [facility] Bilirubin, Total 0.6 0.2 - 1.3 mg/dL [facility] Est Glomerular Filtration Rate 110 >=60 mL/min/1. 73 m?? [facility] Comment: The eGFR was calculated using the CKD-EPI equation. As with all creatinine based estimates of kidney function, eGFR values calculated with the CKD-EPI equation are not accurate in patients with acute kidney failure, extremes of body mass or the acutely ill. [email or web address] CITYnkf eGFR 128 >=60 mL/min/1. 73 m?? [facility] Comment: The eGFR was calculated using the CKD-EPI equation. As with all creatinine based estimates of kidney function, eGFR values calculated with the CKD-EPI equation are not accurate in patients with acute kidney failure, extremes of body mass or the acutely ill. [email or web address] Blood specimen (specimen) 02/26/2020 9:27 AM EST 02/26/2020 9:54 AM EST Narrative Resulting Agency Comment Spec In Lab Camilla Nava MD CHEMISTRY ORDERABLES [facility] [place] [address] documented in this encounter Visit Diagnoses Diagnosis Primary sclerosing cholangitis Cholangitis Healthcare maintenance Routine general medical examination at a health care facility documented in this encounter Care Teams Cook Fishing Vessel Relationship Specialty Start Date End Date Adiel Mooney MD [facility] [place] [address] PCP - General General Internal Medicine 09/20/18 documented as of this encounter
--- OUTSIDE RECORDS SUMMARY | 2024-02-12 14:16 | XMS_ITS | Encounter Summary ---
Author Organization [facility] [place] [address] Care Team Providers Care Barrel Filler Name Role Phone Elizabeth Youssef MD Primary Care Provider [phone] Reason for Visit * Reason Comments Medication Refill Encounter Details Date Type Department Care Team (Late st Contact Info) Description 06/02/2018 [place] [address] Camilla Nava MD [facility] [place] [place] [address] Autoimmune hepatitis Social History Tobacco Use Types [...] PM EDT Clinical Support Primary Care at [address] [phone] 03/12/2024 8:50 AM [place] [phone] Camilla Nava MD [facility] [place] [address] 03/20/2024 8:00 AM EST Office Visit Gastroenterology at [facility] [place] [phone] Camilla Nava MD [facility] [place] [address] documented as of this encounter Visit Diagnoses Diagnosis Autoimmune hepatitis documented in this encounter Care Teams Barrel Filler Relationship Specialty Start Date End Date Elizabeth Youssef MD [facility] [place] [address] PCP - General General Internal Medicine 01/23/1808/24 documented as of this encounter
--- OUTSIDE RECORDS SUMMARY | 2024-02-12 14:16 | XMS_ITS | Encounter Summary ---
Author Organization [facility]ly [facility] [place] [address] Care Team Providers Care Cnc Milling Machine Operator Name Role Phone Elizabeth Youssef MD Primary Care Provider [phone] Encounter Details Date Type Department Care Team (Latest Contact Info) Description 03/28/2018 12:03 PM EST - 03/28/2018 3:04 PM EST Hospital En[place] [address] [facility] [place] [address] Discharge Disposition: Home Social History Tobacco Use [...] Sign Reading Time Taken Comments Blood Pressure 120/73 03/28/2018 2:40 PM EST Pulse 93 03/28/2018 2:30 PM EST Temperature 37 ??C (98.6 ??F) 03/28/2018 12:34 PM EST Respiratory Rate 23 03/28/2018 2:30 PM EST Oxygen Saturation 96% 03/28/2018 2:45 PM EST Inhaled Oxygen Concentration - - Weight 81.6 kg (180 lb) 03/28/2018 12:34 PM EST Height 182.9 cm (6') 03/28/2018 12:34 PM EST Body Mass Index 24.41 03/28/2018 12:34 PM EST documented in this encounter Discharge Instructions * Discharge Instructions* Tee Hernandez RN - 03/28/2018 2:39 PM EST Please call [phone] before 8pm Mon-Fri with problems, questions or concerns. If you call after 8pm or on weekends, call the Hospital at [phone] and ask to speak to the Halftone Operator groundwater consultant and the restrike hammer operator will contact that person for you. * Attachments The following attachments cannot be sent through Care Everywhere. * COLONOSCOPY: POST-OP (GEORGIAN) documented in this encounter Medications at Time [...] EDT Clinical Support Primary Care at [address] [address] 03/12/2024 8:50 [place] [address] [facility] [place] [address] 03/20/2024 8:00 AM EST Office [place] [address] [facility] [place] [address] documented as of this encounter Procedures Procedure [...] PM EST 03/28/2018 2:48 PM EST Narrative [facility] - 03/28/2018 2:48 PM EST Specimen requisition ordered. ??Separate Pathology report to follow Resulting Agency Comment Spec In Lab L Rodney Grant MD PATHOLOGY/CYTOLOGY O EVELIN Performing Organization Address [facility] Co de Phone Number [facility] [place] [address] * Specimen to Pathology (03/28/2018 2:24 PM EST) AP Specimen 03/28/2018 2:24 PM EST 03/28/2018 2:24 PM EST Narrative [facility] - 03/28/2018 2:24 PM EST Specimen requisition ordered. ??Separate Pathology report to follow L Rodney Grant MD PATHOLOGY/CYTOLOGY O EVELIN Performing Organization Address [facility] de Phone Number [facility] [place] [address] * Surgical Pathology Report (03/28/2018 2:23 PM EST) Final Diagnosis [id number] ? Location: ; [facility]; A The signing pathologist has (i) examined the relevant preparation(s) for the specimen(s) and (ii) rendered or confirmed the diagnosis(es). . ?Surgical Pathology DIAGNOSIS A - Splenic flexure, ?? biopsy: - ??Colonic mucosa, negative for diagnostic abnormality. B - Sigmoid colon, ??biopsy: - ??Fragments of hyperplastic polyp. CR-PX Electronically signed by: ??Elijah Cortes MD Verified: ??03/30/2018 ?Pathologist Performed at: ??-[facility], [place], [place] CLINICAL INFORMATION Specimen Submitted: A - [...] labeled B1. ??[place] 03/30/2018 4:00 PM EST [facility] GI Biopsy 03/28/2018 2:23 PM EST 03/28/2018 2:23 PM EST GI Biopsy 03/28/2018 2:23 PM EST 03/28/2018 2:23 PM EST L oRdney Grant MD PATHOLOGY/CYTOLOGY O EVELIN [facility] [place] [address] * COLONOSCOPY (03/28/2018 12:20 PM EST) COLONOSCOPY [facility] Endoscopy ___ Procedure Date: 03/28/2018 12:20 PM ? Patient Name: Mahamed Dale ? Date of : 1980 ? Age: 37 ? Order #: [id number] ? Instrument Name: [id number] ? ___ Procedure: ? Colonoscopy Indications: ? High risk colon cancer surveillance: ? 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 Jenny Grant MD, Lynnette ? Argelia Burrows Referring : ?Camilla Mckeon [...] preparation was evaluated using the ? BBPS ([place] Bowel Preparation Scale) ? with scores of: [...] Action Action Date Dose Rate Site lactated Ringers infusion 100 mL/hr, Intravenous, CONTINUOUS, Starting on 03/28/18 at 1300, Until 03/28/18 at 1704, Endoscopy (Day of Procedure) ondansetron (ZOFRAN) injection 4 mg 4 mg, Intravenous, EVERY 8 HOURS PRN, Starting on 03/28/18 at 1331, Until 03/28/18 at 1704, Nausea, Endoscopy (Day of Procedure) Given 03/28/2018 1:31 PM EST 4 mg documented in this encounter Active and Recently Administered Medications Times are shown in EST. Continuous Medication Order 03/26/2018 03/27/2018 03/28/2018 lactated Ringers infusion 100 mL/hr, Intravenous, CONTINUOUS, Starting on 03/28/18 at 1300, Until 03/28/18 at 1704, Endoscopy (Day of Procedure) 1300 [...] multi-dose injection (CANCELED) ONCE PRN, Starting on Tu03/28/18 at 1331, Until 03/28/18 at 1704, Intra-Operative (Intra-Procedure), Routine 1331 (Given - Provid er: Lynnette Burrows RN)1335 (Given - Provider: Lynnette Burrows RN)1338 (Given - Provider: Lynnette Burrows RN)1341 (Given - Provider: Lynnette Burrows RN)1347 (Given - Provider: Lynnette Burrows RN) ondansetron (ZOFRAN) injection 4 mg 4 mg, Intravenous, EVERY 8 HOURS PRN, Starting on 03/28/18 at 1331, Until Tu03/28/18 at 1704, Nausea, Endoscopy (Day of Procedure) 1331 (Given - Provid er: Lynnette Burrows RN) documented in this encounter Care Teams Cnc Milling Machine Operator Relationship Specialty Start Date End Date Elizabeth Youssef MD [facility] [place] [address] PCP - General General Internal Medicine 01/23/1808/24 documented as of this encounter
--- OUTSIDE RECORDS SUMMARY | 2024-02-12 14:16 | XMS_ITS | Encounter Summary ---
Author Organization [facility] [place] [address] Care Team Providers Care Shank Breaker Name Role Phone Adiel Mooney MD Primary Care Provider [phone] Encounter Details Date Type Department Care Team (Latest Contact Info) Description 02/27/2019 12:15 PM EST Laboratory Appointment Lab [address] [place] [address] Autoimmune hepatitis; Primary sclerosing cholangitis [...] PM EDT Clinical Support Primary Care at [address] [phone] 03/12/2024 8:50 [place] [address] Camilla Nava MD [facility] [place] [address] 03/20/2024 8:00 AM EST Office [place] [address] Camilla Nava MD [facility] [place] [address] documented as of this encounter Procedures Procedure Name Priority Date/Time Associated Diagnosis Comments HC GAMMA GLUTAMYL TRANSFERASE Routine 02/27/2019 12:09 PM EST Primary sclerosing cholangitis HC VENIPUNCTURE Routine 02/27/2019 12:09 PM EST Autoimmune hepatitis documented in this encounter Results * Gamma GT (02/27/2019 12:09 PM EST) Gamma Glutamyl Transferase 54 8 - 61 unit/L [facility] Blood specimen (specimen) 02/27/2019 12:09 PM EST 02/27/2019 12:23 PM EST Narrative Resulting Agency Comment Spec In Lab Camilla Nava MD CHEMISTRY ORDERABLES [facility] [place] [address] * (ABNORMAL) Hepatic Function Panel (02/27/2019 12:09 PM EST) Protein, Total 8.3(H) 6.1 - 8.0 gm/dL [facility] Albumin 5.0 3.2 - 5.2 gm/dL [facility] Aspartate Aminotransferase 18 0 - 39 unit/L [facility] Alanine Aminotransferase 18 0 - 55 unit/L [facility] Alkaline Phosphatase 85 40 - 130 unit/L [facility] Bilirubin, Total 0.5 0.2 - 1.3 mg/dL [facility] Bilirubin, Direct 0.1 0.0 - 0.3 mg/dL [facility] Blood specimen (specimen) 02/27/2019 12:09 PM EST 02/27/2019 12:23 PM EST Narrative Resulting Agency Comment Spec In Lab Camilla Nava MD CHEMISTRY ORDERABLES [facility] [place] [address] documented in this encounter Visit Diagnoses Diagnosis Autoimmune hepatitis Primary sclerosing cholangitis Cholangitis documented in this encounter Care Teams Shank Breaker Relationship Specialty Start Date End Date Adiel Mooney MD [facility] GENER[place] [address] PCP - General General Internal Medicine 09/20/18 documented as of this encounter
--- OUTSIDE RECORDS SUMMARY | 2024-02-12 14:16 | XMS_ITS | Encounter Summary ---
Author Organization [facility] [place] [address] Care Team Providers Care Historic Clothing And Costume Maker Name Role Phone Adiel Mooney MD Primary Care Provider [phone] Encounter Details Date Type Department Care Team (Late st Contact Info) Description 09/28/2018 Orders [place] [phone] Camilla Nava MD [facility] [place] [address] PSC (primary sclerosing cholangitis); Autoimmune hepatitis Social History Tobacco Use Types [...] PM EDT Clinical Support Primary Care at [address] [phone] 03/12/2024 8:50 AM [place] [phone] Camilla Nava MD [facility] [place] [address] 03/20/2024 8:00 AM EST Office [place] [address] Camilla Nava MD [facility] [address] documented as of this encounter Visit Diagnoses Diagnosis PSC (primary sclerosing cholangitis) Cholangitis Autoimmune hepatitis documented in this encounter Care Teams Historic Clothing And Costume Maker Relationship Specialty Start Date End Date Adiel Mooney MD [facility] [place] [address] PCP - General General Internal Medicine 09/20/18 documented as of this encounter
--- OUTSIDE RECORDS SUMMARY | 2024-02-12 14:16 | XMS_ITS | Encounter Summary ---
Author Organization [facility] [place] [address] Care Team Providers Care Axle Turner Name Role Phone Adiel Mooeny MD Primary Care Provider [phone] Reason for Referral * Diagnostic Test (Routine) - Closed Specialty Diagnoses / Procedures Referred By Contac t Referred To Contact Radiology Diagnoses Primary sclerosing cholangitis Procedures MRI Cholangiopancreatography wwo Contrast Laz Longoria MD [facility] [place] [address] [place] [address] Referral ID Status Reason Start Date Expiration Date V isits Requested Visits Authorized [id number] Closed Specialty Service Requested 03/03/2021 06/01/2021 1 1 Encounter Details Date Type Department Care Team (Late st Contact Info) Description 03/04/2020 4:00 PM EST Office [place] [address] Laz Longoria MD [facility] [place] [address] Primary sclerosing cholangitis; Autoimmune hepatitis; Ulcerative pancolitis without complication Social History Tobacco [...] Sign Reading Time Taken Comments Blood Pressure 131/72 03/04/2020 3:51 PM EST Pulse 95 03/04/2020 3:51 PM EST Temperature - - Respiratory Rate - - Oxygen Saturation - - Inhaled Oxygen Concentration - - Weight 78.8 kg (173 lb 11.2 oz) 03/04/2020 3:51 PM EST Height - - Body Mass Index 23.55 02/05/2020 9:09 AM EDT documented in this encounter Progress Notes * Laz Longoria MD - 03/04/2020 4:00 PM EST Gastoenterology & Hepatology Follow [...] folic acid aza (for AIH) Last colonoscopy 12/2019- Dr. Grant- low grade dysplasia Medications: Outpatient Medications Marked as Taking for the 03/04/20 encounter (Office Visit) with Laz Longoria MD Medication Sig Dispense Refill ??? mesalamine (Shaila) 1.2 gram Tablet, Delayed Release (E.C.) TAKE 2 TABLET DAILY 180 tablet 2 ??? ursodioL (Yoli-250) 250 mg Tablet TAKE 2 TABLETS 2 TIMES A DAY BY MOUTH 360 tablet 2 ??? dextroamphetamine-amphetamine (Adderall XR) 20 mg Capsule, Sust. Release 24 hr Take 1 capsule by mouth every morning. 30 capsule 0 ??? folic acid (Folvite) 1 mg Tablet Take 1 tablet by mouth daily. 90 tablet 3 ??? azaTHIOprine (Imuran) 50 mg Tablet Take 2 tablets by mouth daily. Insurance requires this 30 day prescription to be filled through [facility] 60 tablet 11 ADR/ALLERGIES: Allergies Allergen Reactions ??? Hymenoptera Allergenic Extract Angioedema Generalized swelling in chest and neck. Never any wheese, sob or throat symtpoms. ??? Mefloquine Rash Rash occurred while taking sulfa medication and Mefloquine. Unaware of which gave him a reaction. ??? Sulfa (Sulfonamide Antibiotics) Rash Interval History: Mahamed Dale is a 39 y.o. male who presents for follow up of autoimmune hepatitis/PSC overlap syndrome. Bowels are unchanged. BM once a day or less, no blood. Soft stools. Weight is stable. Fibroscan Results: Median kPa: 6.9 Mean IQR:25 % (goal is <30 %) Number of valid measurements: 10 (at least 10 required) Number of invalid measurements: 1 Predicted fibrosis stage: F0 CAP (dB/m): 217 Estimated steatosis grade:0 /3 VITAL SIGNS BP 131/72 Pulse 95 Wt 78.8 kg (173 lb 11.2 oz) BMI 23.55 kg/m?? Physical Exam: appears well, in no distress. Lab Results Component Value Date NA 138 02/26/2020 K 4.0 02/26/2020 CL 104 02/26/2020 CO2 23 02/26/2020 BUN 9 (L) 02/26/2020 CREATININE 0.83 02/26/2020 GLUCOSE 102 02/26/2020 GLUCFASTING 106 (H) 01/19/2019 CALCIUM 9.8 02/26/2020 ESTGFR 110 02/26/2020 Lab Results Component Value Date ALT 17 02/26/2020 AST 19 02/26/2020 GGT 35 09/13/2019 ALKPHOS 90 02/26/2020 BILITOT 0.6 02/26/2020 BILIDIR 0.1 09/13/2019 ALBUMIN 4.7 02/26/2020 PROT 7.8 02/26/2020 Lab Results Component Value Date WBC 5.7 02/26/2020 HGB 15.5 02/26/2020 HCT 44.3 02/26/2020 MCV 91.0 02/26/2020 PLATELET 244 02/26/2020 Assessment/Plan: 39 y.o. male with UC and autoimmune hepatitis [...] for now continue current therapy; colonoscopy in 6 months for follow up low grade dysplasia. Will arrange. Plan: -Continue mesalamine and azathioprine for UC -Colonoscopy in 6 months for follow up low grade dysplasia.- needs miralax prep. I also gave him zofran for nausea during prep. -Cholangio-carcinoma screening is controversial. We will get yearly MRI/MRCP. -Ursodiol 500mg bid for PSC, lft's are normal. -AIH- azathioprine 100mg/day, can consider decreasing back to 50mg which he was on for years until 2014 flare which could have been PSC. -With cholestatic liver disease he is at increased risk of osteoporosis/penia. Will arrange bone density next year. -GIF in one year with MRI/MRCP prior, labs q 6 months Greater than 25 minutes of this 30minute visit was spent in counseling and discussion. Laz Longoria MD Section of Gastroenterology & Hepatology [address] [place] [id number] Copy: Adiel Mooney MD documented in this encounter Plan of Treatment Upcoming Encounters Date Type Department Care Team (Late st Contact Info) Description 02/13/2024 1:00 PM EDT Clinical Support Primary Care at [address] [phone] 03/12/2024 8:50 AM [place] [address] Laz Longoria MD [facility] [place] [address] 03/20/2024 8:00 AM EST Office [place] [address] Laz Longoria MD [facility] [place] [address] documented as of this encounter Results * [...] who have questions please contact the health early breastfeeding care specialist that requested your imaging first. ? Electronically signed by: Yaakov Arenas DO, [facility] ([phone]), at 03/09/2021 8:54 AM Narrative 03/09/2021 8:54 AM EST EXAMINATION: MRI CHOLANGIOPANCREATOGRAPHY WWO CONTRAST ? CLINICAL HISTORY: Primary sclerosing cholangitis, screen for cholangiocarcinoma. TECHNIQUE: MRI of the abdomen was performed with images obtained prior to and following the intravenous administration of 16.6ml Dotarem. Noncontrast MRCP was performed. 3D MIPS were created. COMPARISON: MRI abdomen 02/26/2020 and 01/29/2019. FINDINGS: Inside Sales Lead Images: Noncontributory. Lower chest: Visualized structures within [...] COMPARISON: MRI abdomen 02/26/2020 and 01/29/2019. FINDINGS: Inside Sales Lead Images: Noncontributory. Lower chest: Visualized structures within [...] patients who have questions please contactthe health early breastfeeding care specialist that requested your imaging first. Electronically signed by: Yaakov Arenas DO, [facility]([phone]), at 03/09/2021 8:54 AM Laz Longoria MD IMG MRI ORDERABLES documented in this encounter Visit Diagnoses Diagnosis Primary sclerosing cholangitis Cholangitis Autoimmune hepatitis Ulcerative pancolitis without complication Primary sclerosing cholangitis Cholangitis documented in this encounter Care Teams Axle Turner Relationship Specialty Start Date End Date Adiel Mooney MD [facility] GENERAL [place] [address] PCP - General General Internal Medicine 09/20/18 documented as of this encounter
--- OUTSIDE RECORDS SUMMARY | 2024-02-12 14:17 | XMS_ITS | Encounter Summary ---
Author Organization [facility] [place] [address] Care Team Providers Care Rooming House Operator Name Role Phone Puja Tesfaye MD Primary Care Provider [phone] Reason for Visit * Reason Comments Medication Refill Encounter Details Date Type Department Care Team (Late st Contact Info) Description 03/15/2017 Ref[place] [phone] Camilla Nava MD [facility] [place] [place] [address] Ulcerative colitis without complications, unspecified location Social History Tobacco Use Types Packs/Day Years Used Date Smoking Tobacco: Never Smokeless Tobacco: Never Alcohol Use Standard Drinks/Week Comments Yes 0 (1 standard drink = 0.6 oz pur e alcohol) 1 drink a day Sex and Gender Information Value Date Recorded Sex Assigned at Male 03/31/2023 12:56 PM EST Gender Identity Male 03/31/2023 12:56 PM EST Sexual Orientation Straight 03/31/2023 12 :56 PM EST documented as of this encounter Plan of Treatment Upcoming Encounters Date Type Department Care Team (Late st Contact Info) Description 02/13/2024 1:00 PM EDT Clinical Support Primary Care at [address] [phone] 03/12/2024 8:50 AM [place] [phone] Camilla Nava MD [facility] [place] [address] 03/20/2024 8:00 AM EST Office [place] [address] Camilla Nava MD [facility] [place] [address] documented as of this encounter Visit Diagnoses Diagnosis Ulcerative colitis without complications, unspecified location documented in this encounter Care Teams Rooming House Operator Relationship Specialty Start Date End Date Puja Tesfaye MD [facility] [place] [place] [address] PCP - General 05/06/14 01/22/18 documented as of this encounter
--- OUTSIDE RECORDS SUMMARY | 2024-02-12 14:17 | XMS_ITS | Encounter Summary ---
Author Organization [facility] [place] [address] Care Team Providers Care Relations Coordinator Name Role Phone Puja Tesfaye MD Primary Care Provider Reason for Visit * Reason Comments Medication Refill Encounter Details Date Type Department Care Team (Late st Contact Info) Description 05/05/2017 Refill [place] [phone] Camilla Nava MD [facility] [place] [place] [address] Ulcerative colitis without complications, unspecified location Social [...] EDT Clinical Support Primary Care at [address] [address] 03/12/2024 8:50 AM [place] [phone] Camilla Nava MD [facility] [address] 03/20/2024 8:00 AM EST Office [place] [address] Camilla Nava MD [facility] [place] [address] documented as of this encounter Visit Diagnoses Diagnosis Ulcerative colitis without complications, unspecified location documented in this encounter Care Teams Relations Coordinator Relationship Specialty Start Date End Date Puja Tesfaye MD [facility] GENERAL [place] [place] [address] PCP - General 05/06/14 01/22/18 documented as of this encounter
--- OUTSIDE RECORDS SUMMARY | 2024-02-12 14:17 | XMS_ITS | Encounter Summary ---
Author Organization [facility] [place] [address] Care Team Providers Care Contact Printer Dry Film Name Role Phone Puja Tesfaye MD Primary Care Provider [phone] Encounter Details Date Type Department Care Team (Latest Contact Info) Description 09/21/2017 5:15 PM EDT Laboratory Appointment Lab [address] [place] [address] PSC (primary sclerosing cholangitis); Autoimmune hepatitis Social [...] EDT Clinical Support Primary Care at [address] [address] 03/12/2024 8:50 AM [place] [address] Camilla Nava MD [facility] [place] [address] 03/20/2024 8:00 AM EST Office Visit Gastroenterology at [facility] [place] [address] Camilla Nava MD [facility] [place] [address] documented as of this encounter Procedures Procedure Name Priority Date/Time Associated Diagnosis Comments HEMOGRAM Routine 09/21/2017 5:24 PM EDT PSC (primary sclerosing cholangitis) DIFFERENTIAL, AUTOMATED Routine 09/21/2017 5:24 PM EDT PSC (primary sclerosing cholangitis) CBC (WITH DIFF) Routine 09/21/2017 5:24 PM EDT PSC (primary sclerosing cholangitis) GAMMA GT Routine 09/21/2017 5:24 PM EDT Autoimmune hepatitis HEPATIC FUNCTION PANEL Routine 09/21/2017 5:24 PM EDT Autoimmune hepatitis documented in this encounter Results * Differential, Automated (09/21/2017 5:24 PM EDT) Neutrophil % 67.7 % [facility] Neutrophil Absolute 3.99 1.70 - 6.10 x10(3)/[facility] Lymph % 22.0 % [facility] Lymphocytes Abs 1.3 0.9 - 3.2 x10(3)/[facility] Monocyte % 8.5 % [facility] Monocyte Abs 0.5 0.3 - 0.9 x10(3)/[facility] Eos % 0.8 % [facility] Eosinophils Abs 0.0 0.0 - 0.4 x10(3)/[facility] Basophil % 0.7 % [facility] Baso Absolute 0.0 0.0 - 0.1 x10(3)/[facility] Immature Gran % 0.30 % [facility] Comment: Immature granulocytes(IG's)percentage and absolute count will include metamyelocytes, myelocytes, and promyelocytes. Blood smears from CBCs yielding IG's will be scanned manually for concordance. If this scan disagrees with the automated IG or if promyelocytes are noted, a manual differential will be performed. Immature Gran Absolute 0.02 0.00 - 0.04 x10(3)/[facility] Blood specimen (specimen) 09/21/2017 5:24 PM EDT 09/21/2017 5:28 PM EDT Narrative Resulting Agency Comment Spec In Lab Camilla Nava MD HEMATOLOGY ORDERABLE S [facility] [place] [address] * Hemogram (09/21/2017 5:24 PM EDT) White Blood Cell 5.9 4.0 - 9.5 x10(3)/[facility] Red Blood Cell 4.79 4.58 - 5.54 x10(6)/[facility] Hemoglobin 15.0 13.7 - 16.5 gm/dL [facility] Hematocrit 43.5 40.5 - 48.5 % [facility] Mean Cell Volume 90.8 82.9 - 93.1 fL [facility] Mean Cell Hemoglobin 31.3 27.5 - 32.1 pg [facility] Mean Cell Hemoglobin Concentration 34.5 32.0 - 35.7 gm/dL [facility] Platelet 228 145 - 357 x10(3)/[facility] RDW Standard Deviation 44.0 36.0 - 45.0 [facility] RDW coefficient of variation 13.2 11.4 - 13.8 % [facility] Mean Platelet Volume 10.4 7.6 - 12.9 fL [facility] NRBC% auto 0.0 % [facility] NRBC Absolute 0.000 0.000 - 0.000 x10(3)/[facility] Blood specimen (specimen) 09/21/2017 5:24 PM EDT 09/21/2017 5:28 PM EDT Narrative Resulting Agency Comment Spec In Lab Camilla Nava MD HEMATOLOGY ORDERABLE S Performing Organization Address [facility] Co de Phone Number [facility] [place] [address] * (ABNORMAL) Gamma GT (09/21/2017 5:24 PM EDT) Gamma Glutamyl Transferase 411(H) 8 - 61 unit/L [facility] Blood specimen (specimen) 09/21/2017 5:24 PM EDT 09/21/2017 5:28 PM EDT Narrative Resulting Agency Comment Spec In Lab Camilla Nava MD CHEMISTRY ORDERABLES Performing Organization Address [facility] Co de Phone Number [facility] [place] [address] * (ABNORMAL) Hepatic Function Panel (09/21/2017 5:24 PM EDT) Protein, Total 7.8 6.1 - 8.0 gm/dL [facility] Albumin 4.7 3.2 - 5.2 gm/dL [facility] Aspartate Aminotransferase 64(H) 0 - 39 unit/L [facility] Alanine Aminotransferase 113(H) 0 - 55 unit/L [facility] Alkaline Phosphatase 194(H) 40 - 120 unit/L [facility] Bilirubin, Total 0.6 0.2 - 1.3 mg/dL [facility] Bilirubin, Direct 0.2 0.0 - 0.3 mg/dL [facility] Blood specimen (specimen) 09/21/2017 5:24 PM EDT 09/21/2017 5:28 PM EDT Narrative Resulting Agency Comment Spec In Lab Camilla Nava MD CHEMISTRY ORDERABLES [facility] [place] [address] documented in this encounter Visit Diagnoses Diagnosis PSC (primary sclerosing cholangitis) Cholangitis Autoimmune hepatitis documented in this encounter Care Teams Contact Printer Dry Film Relationship Specialty Start Date End Date Puja Tesfaye MD [facility] [address] [facility] [place] [address] PCP - General 05/06/14 01/22/18 documented as of this encounter
--- OUTSIDE RECORDS SUMMARY | 2024-02-12 14:17 | XMS_ITS | Encounter Summary ---
Author Organization [facility] [place] [address] Care Team Providers Care Branch Logistics Supervisor Name Role Phone Puja Tesfaye MD Primary Care Provider Encounter Details Date Type Department Care Team (Latest Contact Info) Description 11/15/2017 5:15 PM EDT Laboratory Appointment Lab [address] [place] [address] Autoimmune hepatitis Social History Tobacco Use Types [...] EDT Clinical Support Primary Care at [address] [phone] 03/12/2024 8:50 [place] [address] Camilla Nava MD [facility] [place] [place] [address] 03/20/2024 8:00 AM EST Office [place] [address] Camilla Nava MD [facility] [place] [place] [address] documented as of this encounter Procedures Procedure Name Priority Date/Time Associated Diagnosis Comments GAMMA GT Routine 11/15/2017 5:24 PM EDT Autoimmune hepatitis HEPATIC FUNCTION PANEL Routine 11/15/2017 5:24 PM EDT Autoimmune hepatitis documented in this encounter Results * (ABNORMAL) Gamma GT (11/15/2017 5:24 PM EDT) Pathologist [facility] Gamma Glutamyl Transferase 414(H) 8 - 61 unit/L [facility] Blood specimen (specimen) 11/15/2017 5:24 PM EDT 11/15/2017 5:41 PM EDT Narrative Resulting Agency Comment Spec In Lab Camilla Nava MD CHEMISTRY ORDERABLES [facility] [place] [address] * (ABNORMAL) Hepatic Function Panel (11/15/2017 5:24 PM EDT) Pathologist [facility] Protein, Total 7.5 6.1 - 8.0 gm/dL [facility] Albumin 4.6 3.2 - 5.2 gm/dL [facility] Aspartate Aminotransferase 47(H) 0 - 39 unit/L [facility] Alanine Aminotransferase 58(H) 0 - 55 unit/L [facility] Alkaline Phosphatase 138(H) 40 - 120 unit/L [facility] Bilirubin, Total 0.3 0.2 - 1.3 mg/dL [facility] Bilirubin, Direct 0.1 0.0 - 0.3 mg/dL [facility] Blood specimen (specimen) 11/15/2017 5:24 PM EDT 11/15/2017 5:41 PM EDT Narrative Resulting Agency Comment Spec In Lab Camilla Nava MD CHEMISTRY ORDERABLES [facility] [address] documented in this encounter Visit Diagnoses Diagnosis Autoimmune hepatitis documented in this encounter Care Teams Branch Logistics Supervisor Relationship Specialty Start Date End Date Puja Tesfaye MD [facility] [address] [place] [facility] [phone] PCP - General 05/06/14 01/22/18 documented as of this encounter
--- OUTSIDE RECORDS SUMMARY | 2024-02-12 14:17 | XMS_ITS | Encounter Summary ---
Author Organization [facility] [place] [address] Care Team Providers Care Customer Care Professional Name Role Phone Puja Tesfaye MD Primary Care Provider Encounter Details Date Type Department Care Team (Latest Contact Info) Description 09/23/2016 4:40 PM EDT Laboratory Appointment Lab [address] [place] [address] Autoimmune hepatitis; Arthralgia of left elbow; Cough Social History Tobacco Use Types Packs/Day Years [...] EDT Clinical Support Primary Care at [address] [address] 03/12/2024 8:50 [place] [address] Camilla Nava MD [facility] [place] [address] 03/20/2024 8:00 AM EST Office Visit Gastroenterology at [facility] [place] [address] Camilla Nava MD [facility] [place] [address] documented as of this encounter Procedures Procedure Name Priority Date/Time Associated Diagnosis Comments LYME IGG & IGM ANTIBODY Routine 09/23/2016 4:51 PM EDT Arthralgia of left elbow HEMOGRAM Routine 09/23/2016 4:51 PM EDT Cough DIFFERENTIAL, AUTOMATED Routine 09/23/2016 4:51 PM EDT Cough CBC (WITH DIFF) Routine 09/23/2016 4:51 PM EDT Cough TSH Routine 09/23/2016 4:51 PM EDT Arthralgia of left elbow GAMMA GT Routine 09/23/2016 4:51 PM EDT Autoimmune hepatitis HEPATIC FUNCTION PANEL Routine 09/23/2016 4:51 PM EDT Autoimmune hepatitis documented in this encounter Results * Differential, Automated (09/23/2016 4:51 PM EDT) Neutrophil % 69.7 % [facility] Neutrophil Absolute 5.08 1.70 - 6.10 x10(3)/[facility] Lymph % 20.9 % [facility] Lymphocytes Abs 1.5 0.9 - 3.2 x10(3)/[facility] Monocyte % 7.6 % [facility] Monocyte Abs 0.6 0.3 - 0.9 x10(3)/[facility] Eos % 1.0 % [facility] Eosinophils Abs 0.1 0.0 - 0.4 x10(3)/[facility] Basophil % 0.5 % [facility] Baso Absolute 0.0 0.0 - 0.1 x10(3)/[facility] Immature Gran % 0.30 % [facility] Comment: Immature granulocytes(IG's)percentage and absolute count will include metamyelocytes, myelocytes, and promyelocytes. Blood smears from CBCs yielding IG's will be scanned manually for concordance. If this scan disagrees with the automated IG or if promyelocytes are noted, a manual differential will be performed. Immature Gran Absolute 0.02 0.00 - 0.04 x10(3)/[facility] Blood specimen (specimen) 09/23/2016 4:51 PM EDT 09/23/2016 4:54 PM EDT Narrative Resulting Agency Comment Spec In Lab Puja Tesfaye MD HEMATOLOGY ORDERABLE S Performing Organization Address City/State/[facility] Co de Phone Number [facility] [place] [address] * Hemogram (09/23/2016 4:51 PM EDT) White Blood Cell 7.3 4.0 - 9.5 x10(3)/[facility] Red Blood Cell 4.79 4.58 - 5.54 x10(6)/[facility] Hemoglobin 15.2 13.7 - 16.5 gm/dL [facility] Hematocrit 43.6 40.5 - 48.5 % [facility] Mean Cell Volume 91.0 82.9 - 93.1 fL [facility] Mean Cell Hemoglobin 31.7 27.5 - 32.1 pg [facility] Mean Cell Hemoglobin Concentration 34.9 32.0 - 35.7 gm/dL [facility] Platelet 244 145 - 357 x10(3)/[facility] RDW Standard Deviation 43.9 36.0 - 45.0 fL [facility] RDW coefficient of variation 13.2 11.4 - 13.8 % [facility] Mean Platelet Volume 10.9 7.6 - 12.9 fL [facility] NRBC% auto 0.0 % [facility] NRBC Absolute 0.000 0.000 - 0.000 x10(3)/mcL [facility] Blood specimen (specimen) 09/23/2016 4:51 PM EDT 09/23/2016 4:54 PM EDT Narrative Resulting Agency Comment Spec In Lab Puja Tesfaye MD HEMATOLOGY ORDERABLE S Performing Organization Address City/[facility]/ZIP Co de Phone Number [facility] [place] [address] * Lyme IgG & IgM Antibody (09/23/2016 4:51 PM EDT) Lyme Antibody Neg Neg [facility] Blood specimen (specimen) 09/23/2016 4:51 PM EDT 09/24/2016 7:21 AM EDT Narrative Resulting Agency Comment Spec In Lab Puja Tesfaye MD IMMUNOLOGY ORDERABLE S Performing Organization Address City/[facility]/ZIP Co de Phone Number [facility] [place] [address] * TSH (09/23/2016 4:51 PM EDT) Thyroid Stimulating Hormone 1.87 0.27 - 4.20 mlU/ML [facility] Blood specimen (specimen) 09/23/2016 4:51 PM EDT 09/23/2016 4:54 PM EDT Narrative Resulting Agency Comment Spec In Lab Puja Tesfaye MD CHEMISTRY ORDERABLES Performing Organization Address [facility] Co de Phone Number [facility] [place] [address] * (ABNORMAL) Gamma GT (09/23/2016 4:51 PM EDT) Gamma Glutamyl Transferase 449(H) 8 - 61 unit/L [facility] Blood specimen (specimen) 09/23/2016 4:51 PM EDT 09/23/2016 4:54 PM EDT Narrative Resulting Agency Comment Spec In Lab Camilla Nava MD CHEMISTRY ORDERABLES Performing Organization Address City/[facility]/ZIP Co de Phone Number [facility] [place] [address] * (ABNORMAL) Hepatic Function Panel (09/23/2016 4:51 PM EDT) Protein, Total 7.8 6.1 - 8.0 gm/dL [facility] Albumin 4.6 3.2 - 5.2 gm/dL [facility] Aspartate Aminotransferase 46(H) 0 - 39 unit/L [facility] Alanine Aminotransferase 73(H) 0 - 55 unit/L [facility] Alkaline Phosphatase 200(H) 40 - 120 unit/L [facility] Bilirubin, Total 0.4 0.2 - 1.3 mg/dL [facility] Bilirubin, Direct 0.1 0.0 - 0.3 mg/dL [facility] Blood specimen (specimen) 09/23/2016 4:51 PM EDT 09/23/2016 4:54 PM EDT Narrative Resulting Agency Comment Spec In Lab Camilla Nava MD CHEMISTRY ORDERABLES Performing Organization Address [facility]/ZIP Co de Phone Number [facility] [place] [address] documented in this encounter Visit Diagnoses Diagnosis Autoimmune hepatitis Arthralgia of left elbow Cough documented in this encounter Care Teams Customer Care Professional Relationship Specialty Start Date End Date Puja Tesfaye MD [facility] [address] [place] [address] PCP - General 05/06/14 01/22/18 documented as of this encounter
--- OUTSIDE RECORDS SUMMARY | 2024-02-12 14:17 | XMS_ITS | Encounter Summary ---
Author Organization [facility] [place] [address] Care Team Providers Care Python Web Developer Name Role Phone Puja Tesfaye MD Primary Care Provider [phone] Reason for Visit * Reason Comments Medication Refill Encounter Details Date Type Department Care Team (Late st Contact Info) Description 02/12/2016 [place] [phone] Camilla Nava MD [facility] [place] [address] Ulcerative colitis without complications, unspecified location Social [...] PM EDT Clinical Support Primary Care at [address] [address] 03/12/2024 8:50 [place] [phone] Camilla Nava MD [facility] [place] [address] 03/20/2024 8:00 AM EST Office [place] [address] Camilla Nava MD [facility] [place] [address] documented as of this encounter Visit Diagnoses Diagnosis Ulcerative colitis without complications, unspecified location documented in this encounter Care Teams Python Web Developer Relationship Specialty Start Date End Date Puja Tesfaye MD [facility] [place] [address] [place] [address] PCP - General 05/06/14 01/22/18 documented as of this encounter
--- OUTSIDE RECORDS SUMMARY | 2024-02-12 14:17 | XMS_ITS | Encounter Summary ---
Author Organization [facility] [place] [address] Care Team Providers Care Portfolio Mgr Name Role Phone Puja Tesfaye MD Primary Care Provider Encounter Details Date Type Department Care Team (Late st Contact Info) Description 10/21/2017 Orders [place] [address] Camilla Nava MD [facility] [place] [address] Social History Tobacco Use Types Packs/Day Years [...] EDT Clinical Support Primary Care at [address] [phone] 03/12/2024 8:50 AM [place] [phone] Camilla Nava MD [facility] [place] [address] 03/20/2024 8:00 AM EST Office [place] [address] Camilla Nava MD [facility] [place] [address] documented as of this encounter Visit Diagnoses Not on filedocumented in this encounter Care Teams Portfolio Mgr Relationship Specialty Start Date End Date Puja Tesfaye MD [facility] [place] [address] PCP - General 05/06/14 01/22/18 documented as of this encounter
--- OUTSIDE RECORDS SUMMARY | 2024-02-12 14:17 | XMS_ITS | Encounter Summary ---
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 The vaccine was administered without issue LD/IM and he was given the VIS sheet as well. SREEKANTH Patrick documented in this encounter Miscellaneous Notes * Addendum Note - Esequiel Patel CMA - 03/02/2018 8:30 AM ESTAddended by: ESEQUIEL PATEL on: 03/02/2018 09:34 AM Modules accepted: Orders documented in this encounter Plan of Treatment Upcoming Encounters Date Type Department Care Team (Late st Contact Info) Description 02/13/2024 1:00 PM EDT Clinical Support Primary Care at [address] [phone] 03/12/2024 8:50 [place] [address] Camilla Nava MD [facility] [place] [address] 03/20/2024 8:00 AM EST [place] [address] Camilla Nava MD [facility] [place] [address] documented as of this encounter Visit Diagnoses Diagnosis Encounter for immunization Need for other specified prophylactic vaccination against single bacterial disease documented in this encounter Care Teams Insurance Loss Assessor Relationship Specialty Start Date End Date Elizabeth Youssef MD [facility] [place] [address] PCP - General General Internal Medicine 01/23/18 52 12/11 documented as of this encounter
--- OUTSIDE RECORDS SUMMARY | 2024-02-12 14:17 | XMS_ITS | Encounter Summary ---
Author Organization [facility] [place] [address] Care Team Providers Care Assembler Aircraft Power Plant Name Role Phone Puja Tesfaye MD Primary Care Provider Encounter Details Date Type Department Care Team (Latest Contact Info) Description 10/03/2017 5:10 PM EDT Laboratory Appointment Lab [address] [place] [address] PSC (primary sclerosing cholangitis); Autoimmune [...] EDT Clinical Support Primary Care at [address] [address] 03/12/2024 8:50 AM [place] [address] Camilla Nava MD [facility] [place] [address] 03/20/2024 8:00 AM EST Office [place] [address] Camilla Nava MD [facility] [place] [address] documented as of this encounter Procedures Procedure Name Priority Date/Time Associated Diagnosis Comments GAMMA GT Routine 10/03/2017 5:39 PM EDT Autoimmune hepatitis HEPATIC FUNCTION PANEL Routine 10/03/2017 5:39 PM EDT Autoimmune hepatitis documented in this encounter Results * (ABNORMAL) Gamma GT (10/03/2017 5:39 PM EDT) Pathologist [facility] Gamma Glutamyl Transferase 387(H) 8 - 61 unit/L [facility] Blood specimen (specimen) 10/03/2017 5:39 PM EDT 10/03/2017 6:03 PM EDT Narrative Resulting Agency Comment Spec In Lab Camilla Nava MD CHEMISTRY ORDERABLES [facility] [place] [address] * (ABNORMAL) Hepatic Function Panel (10/03/2017 5:39 PM EDT) Protein, Total 7.3 6.1 - 8.0 gm/dL [facility] Albumin 4.6 3.2 - 5.2 gm/dL [facility] Aspartate Aminotransferase 47(H) 0 - 39 unit/L [facility] Alanine Aminotransferase 70(H) 0 - 55 unit/L [facility] Alkaline Phosphatase 178(H) 40 - 120 unit/L [facility] Bilirubin, Total 0.4 0.2 - 1.3 mg/dL [facility] Bilirubin, Direct 0.1 0.0 - 0.3 mg/dL [facility] Blood specimen (specimen) 10/03/2017 5:39 PM EDT 10/03/2017 6:03 PM EDT Narrative Resulting Agency Comment Spec In Lab Camilla Nava MD CHEMISTRY ORDERABLES [facility] [place] [address] documented in this encounter Visit Diagnoses Diagnosis PSC (primary sclerosing cholangitis) Cholangitis Autoimmune hepatitis documented in this encounter Care Teams Assembler Aircraft Power Plant Relationship Specialty Start Date End Date Puja Tesfaye MD [facility] [address] [facility] [place] [address] [place] [address] PCP - General 05/06/14 01/22/18 documented as of this encounter
--- OUTSIDE RECORDS SUMMARY | 2024-02-12 14:17 | XMS_ITS | Encounter Summary ---
Author Organization Formerly [facility] [place] [address] Care Team Providers Care Sales Office Assistant Name Role Phone Puja Tesfaye MD Primary Care Provider Reason for Visit * Reason Comments Medication Refill Encounter Details Date Type Department Care Team (Late st Contact Info) Description 11/23/2016 Ref[place] [phone] Camilla Nava MD [facility] [place] [address] Autoimmune hepatitis Social History Tobacco Use Types [...] PM EDT Clinical Support Primary Care at [address] [phone] 03/12/2024 8:50 AM [place] [phone] Camilla Nava MD [facility] [place] [address] 03/20/2024 8:00 AM EST Office [place] [phone] Camilla Nava MD [facility] [place] [address] documented as of this encounter Visit Diagnoses Diagnosis Autoimmune hepatitis documented in this encounter Care Teams Sales Office Assistant Relationship Specialty Start Date End Date Puja Tesfaye MD [facility] [place] [address] PCP - General 05/06/14 01/22/18 documented as of this encounter
--- OUTSIDE RECORDS SUMMARY | 2024-02-12 14:17 | XMS_ITS | Encounter Summary ---
Author Organization [facility] [place] [address] Care Team Providers Care Sales Ledger Clerk Name Role Phone Puja Tesfaye MD Primary Care Provider Encounter Details Date Type Department Care Team (Late st Contact Info) Description 09/15/2017 Orders [place] [phone] Camilla Nava MD [facility] [place] [address] PSC (primary sclerosing cholangitis) Social History Tobacco [...] EDT Clinical Support Primary Care at [address] [phone] 03/12/2024 8:50 AM [place] [phone] Camilla Nava MD [facility] [place] [address] 03/20/2024 8:00 AM EST Office Visit [place] [phone] Camilla Nava MD [facility] [place] [address] Scheduled Orders Name Type Priority Associated Diagnoses Orde r Schedule CBC (with Diff) Lab Routine PSC (primary sclerosing cholangitis) Every 3 months for 4 Occurrences starting 09/15/2017 until 09/15/2018, 2 completed documented as of this encounter Visit Diagnoses Diagnosis PSC (primary sclerosing cholangitis) Cholangitis documented in this encounter Care Teams Sales Ledger Clerk Relationship Specialty Start Date End Date Puja Tesfaye MD [facility] [address] [place] [address] [place] [address] PCP - General 05/06/14 01/22/18 documented as of this encounter
--- OUTSIDE RECORDS SUMMARY | 2024-02-12 14:17 | XMS_ITS | Encounter Summary ---
Author Organization [facility] Address [facility] [place] [address] Care Team Providers Care Tie Layer Name Role Phone Puja Tesfaye MD Primary Care Provider [phone] Reason for Visit * Auth/Cert Specialty Diagnoses / Procedures Referred By Ronal t Referred To Contact Diagnoses 2 yr crohns f/u from 03/06/14 Procedures PRO COLONOSCOPY, DIAGNOSTIC COLONOSCOPY, DIAGNOSTIC Referral ID Status Reason Start Date Expiration Date Visits Re quested Visits Authorized [id number] 1 1 Encounter Details Date Type Department Care Team (Late st Contact Info) Description 02/26/2016 9:00 AM EDT - 02/26/2016 9:45 AM EDT [place] [phone] Camilla Nava MD [facility] [place] [address] COLONOSCOPY FLEXIBLE, WITH BX (WRVU 3.56) Social [...] Sign Reading Time Taken Comments Blood Pressure 116/65 02/26/2016 9:43 AM EDT Pulse 76 02/26/2016 9:43 AM EDT Temperature - - Respiratory Rate 16 02/26/2016 9:43 AM EDT Oxygen Saturation 96% 02/26/2016 9:43 AM EDT Inhaled Oxygen Concentration - - Weight - - Height - - Body Mass Index - - documented in this encounter Discharge Instructions * Discharge Instructions* Ninfa Manrique, RN - 02/26/2016 9:51 AM EDT Colonoscopy What to expect after the procedure You may feel a little more gassy or bloated than usual. This is normal. You should expect the return of normal bowel function in the 2 to 3 days. Activity Because of the sedation that you received your judgement and reaction time are effected ?? Go home and rest quietly for the remainder of the day. You may resume your normal activities tomorrow. ?? Change from one position to the next slowly. You may lose your balance unexpectedly ?? Be careful on stairs, as you may be unsteady on your feet FOR THE NEXT 24 HRS ?? DO NOT DRIVE OR OPERATE ANY MACHINERY ?? DO NOT DRINK ALCOHOLIC BEVERAGES ?? DO NOT SIGN LEGAL DOCUMENTS ?? If you are a smoker: DO NOT SMOKE WHILE YOU ARE ALONE Diet ?? Start by eating small portions of foods that ordinarily will not upset your stomach . Avoid gas producing foods for the next few days ?? Be gentle with what you choose to start with ?? Drink plenty of fluids ( unless your doctor has told you not to). IV SITE-- slight redness, or tenderness is normal. You can use warm compresses if you become concerned. If the tenderness +/or redness increases or foul drainage and a red streak occurs, please contact your PCP immediately When shoud you call for help? Call 911 anytime you think you may need emergency care. For example If you pass out ( loss of consciousness) If you pass maroon or bloody stools If you have severe belly pain Call your doctor now or seek immediate medical care If your stools are black and tarlike If your stools have streaks of blood, but you did not have a biopsy or any polyps removed If you have belly pain, or your belly is swollen and firm If you vomit If you have a fever If you are very dizzy Watch closely for changes in your health, and be sure to contact your doctor if you have any problems Your doctor will let you know when you will need your next colonoscopy. The results of your test and your risk for colorectal cancer will help your doctor decide how often you need to be checked. Tuesday-Tuesday Same Day Endo [phone] Otherwise contact [phone] and ask to speak to the canal boat captain is consultant Follow up care is a nunez part of your treatment and safety. Be sure to make and go to all appointments, and call your doctor if you are having problems. Discharge instructions reviewed with patient who expresses understanding documented in this encounter Medications at Time of Discharge Medication Sig Dispensed Refills Start Date End Date folic acid (FOLVITE) 1 mg TabletIndications:Ulce rative colitis without complications, unspecified location TAKE 1 TABLET DAILY 90 tablet 02/12/2016 05/10/2016 azaTHIOprine 100 mg TabletIndications:Ulce rative colitis without complications, unspecified location Take 1 tablet by mouth daily. 90 tablet 3 11/25/2015 03/28/2018 APRISO 0.375 gram Capsule, Sust. Release 24 hrIndications:Ulcerati ve colitis without complications, unspecified location TAKE 4 CAPSULES DAILY 360 capsule 3 06/25/2015 06/18/2016 documented as of this encounter H&P Notes * Camilla Nava MD - 02/26/2016 8:43 AM EDT Gastroenterology and Hepatology Pre-Procedure History and Physical Exam Procedure: Colonoscopy: Indication: ulcerative colitis Patient Active Problem List Diagnosis Code ??? [...] EDT Clinical Support Primary Care at [address] [phone] 03/12/2024 8:50 AM [place] [phone] Camilla Nava MD [facility] [place] [address] 03/20/2024 8:00 AM EST Office [place] [phone] Camilla Nava MD [facility] [place] [address] documented as of this encounter Procedures Procedure Name Priority Date/Time Associated Diagnosis Comments SURGICAL PATHOLOGY REPORT Routine 02/26/2016 9:43 AM EDT SPECIMEN TO PATHOLOGY Routine 02/26/2016 9:43 AM EDT SPECIMEN TO PATHOLOGY Routine 02/26/2016 9:43 AM EDT SPECIMEN TO PATHOLOGY Routine 02/26/2016 9:43 AM EDT SPECIMEN TO PATHOLOGY Routine 02/26/2016 9:43 AM EDT COLONOSCOPY FLEXIBLE, WITH BX (WRVU 3.56) 02/26/2016 9:04 AM EDT 2 yr crohns f/u from 03/06/14 (IVCS) COLONOSCOPY Routine 02/26/2016 8:07 AM EDT documented in this encounter Results * Surgical Pathology Report (02/26/2016 9:43 AM EDT) Final Diagnosis [id number] ?Location: 4T; EA05; A The signing pathologist has (i) examined the relevant preparation(s) for the specimen(s) and (ii) rendered or confirmed the diagnosis(es). . ?Surgical Pathology DIAGNOSIS A - Right colon, biopsy: - Colonic mucosa, negative for diagnostic abnormality. B - Transverse colon, biopsy: - Colonic mucosa, negative for diagnostic abnormality. C - Descending colon, biopsy: - Colonic mucosa, negative for diagnostic abnormality. D - Rectosigmoid colon, biopsy: - Colonic mucosa, negative for diagnostic abnormality. CR-PX Electronically signed by: ??Elijah Cortes MD Verified: ??03/02/2016 ?Pathologist CLINICAL INFORMATION Specimen Submitted: A - Biopsies right colon B - Transverse colon C - Descending colon D - Recto sigmoid colon Clinical History: History of ulcerative colitis, appears to be in remission, biopsies for dysplasia Clinical Diagnosis: Same SPECIMEN PROCESSING A - Labeled/Fixative : Biopsies right colon, formalin. Quantity/Size: Six, 0.2-0.3 cm. Tissue Description: ??Soft, yellow-swenson tissue ??. Sections/Process ing: (T2) B - Labeled/Fixative : Transverse colon, formalin. Quantity/Size: Seven, 0.3-0.4 cm. Tissue Description: ??Soft, yellow-swenson tissue ??. Sections/Process ing: (T2) C - Labeled/Fixative : Descending colon, formalin. Quantity/Size: Multiple, 0.2-0.4 cm. Tissue Description: ??Soft, swenson-pink tissue ??. Sections/Process ing: (T2) D - Labeled/Fixative : Rectosigmoid colon, formalin. Quantity/Size: Multiple, 0.3-0.4 cm. Tissue Description: ??Soft, red-swenson tissue . Sections/Process ing: (T3) ??ejr 03/02/2016 4:16 PM [facility] GI Biopsy 02/26/2016 9:43 AM EDT 02/26/2016 9:43 AM EDT GI Biopsy 02/26/2016 9:43 AM EDT 02/26/2016 9:43 AM EDT GI Biopsy 02/26/2016 9:43 AM EDT 02/26/2016 9:43 AM EDT GI Biopsy 02/26/2016 9:43 AM EDT 02/26/2016 9:43 AM EDT Camilla Nava MD PATHOLOGY/CYTOLOGY O RDKAYODE Performing Organization Address [facility]/ZIP Co de Phone Number [facility] [place] [address] * Specimen to Pathology (surgical or derm) (02/26/2016 9:43 AM EDT) AP Specimen 02/26/2016 9:43 AM EDT 02/26/2016 9:43 AM EDT Narrative [facility] - 02/26/2016 9:43 AM EDT Specimen requisition ordered. ??Separate Pathology report to follow Camilla Nava MD PATHOLOGY/CYTOLOGY O EVELIN Performing Organization Address [facility] Co de Phone Number [facility] [place] [address] * Specimen to Pathology (surgical or derm) (02/26/2016 9:43 AM EDT) AP Specimen 02/26/2016 9:43 AM EDT 02/26/2016 9:43 AM EDT Narrative [facility] - 02/26/2016 9:43 AM EDT Specimen requisition ordered. ??Separate Pathology report to follow Camilla Nava MD PATHOLOGY/CYTOLOGY O RDERAJOSE Performing Organization Address [facility] [place] [address] * Specimen to Pathology (surgical or derm) (02/26/2016 9:43 AM EDT) AP Specimen 02/26/2016 9:43 AM EDT 02/26/2016 9:43 AM EDT Narrative [facility] - 02/26/2016 9:43 AM EDT Specimen requisition ordered. ??Separate Pathology report to follow Camilla Nava MD PATHOLOGY/CYTOLOGY O EVELIN Performing Organization Address [facility] [place] [address] * Specimen to Pathology (surgical or derm) (02/26/2016 9:43 AM EDT) AP Specimen 02/26/2016 9:43 AM EDT 02/26/2016 9:43 AM EDT Narrative [facility] - 02/26/2016 9:43 AM EDT Specimen requisition ordered. ??Separate Pathology report to follow Camilla Nava MD PATHOLOGY/CYTOLOGY O EVELIN Performing Organization Address [facility] [place] [address] * COLONOSCOPY (02/26/2016 8:07 AM EDT) COLONOSCOPY [facility] Endoscopy Procedure Date: 02/26/2016 8:07 AM ? Patient Name: Mahamed Dale ? Date of : 1980 ? Age: 35 ? Order #: [id number] ? Instrument Name: [facility] [id number] ? Procedure: ? Colonoscopy Indications: ? High risk colon cancer surveillance: ? Ulcerative pancolitis of 8 (or more) ? years duration Providers: ? Camilla Nava MD, Laura Suresh RN, ? Harry Fernandez Referring : ?Puja Tesfaye MD Medicines: ? Midazolam 3 mg IV, Fentanyl 150 ? micrograms IV, Zofran 4 mg IV Complications: ? No immediate complications. Procedure: ? Pre-Anesthesia Assessment: ? - Prior to the procedure, a History ? and Physical was performed, and ? patient medications, allergies and ? sensitivities were reviewed. The ? patient's tolerance of previous ? anesthesia was reviewed. ? - The risks and benefits of the ? procedure and the sedation options ? and risks were discussed with the ? patient. All questions were answered ? and informed consent was obtained. ? The procedure, indications, benefits, ? risks [...] preparation was excellent. ? Findings: ? The colon (entire examined portion) appeared normal. ? Biopsies were taken with a cold forceps for histology. ? The terminal ileum appeared normal. ? Impression: ?- The entire examined colon is ? normal. Biopsied. ? - The examined portion of the ileum ? was normal. Recommendation: ?- Await pathology results. ? - Repeat colonoscopy in 2 years for ? surveillance. ? - Continue mesalamine. ? Attending Participation: ? I personally performed the entire procedure. ? Camilla Nava MD 02/26/2016 9:55:55 AM This report has been signed electronically. Number of Addenda: 0 Note Initiated On: 02/26/2016 8:07 AM PROVATION 02/26/2016 8:07 AM EDT Puja Tesfaye MD GENERAL SURGICAL ORD [facility] PROVATION documented in this encounter Visit Diagnoses Not on filedocumented in this encounter Administered Medications Inactive Administered Medications - up to 3 most recent administrations Medication Order MAR Action Action Date Dose Rate Site fentaNYL 50 mcg/mL multi-dose injection ONCE PRN, Starting on Radhika 02/26/16 at 0907, Until Radhika 02/26/16 at 1215, Intra-Operative (Intra-Procedure), Routine Given 02/26/2016 9:14 AM EDT 50 mcg Right Arm Given 02/26/2016 9:10 AM EDT 50 mcg Ri ght Arm Given 02/26/2016 9:07 AM EDT 50 mcg Ri ght Arm lactated ringers infusion 50 mL/hr, Intravenous, CONTINUOUS, Starting on Radhika 02/26/16 at 0900, Until Radhika 02/26/16 at 1011, Endoscopy (Day of Procedure) New Bag 02/26/2016 8:53 AM EDT 50 mL/hr 50 mL/hr midazolam (PF) (VERSED) 1 mg/mL multi-dose injection ONCE PRN, Starting on Radhika 02/26/16 at 0907, Until Radhika 02/26/16 at 1215, Intra-Operative (Intra-Procedure), Routine Given 02/26/2016 9:13 AM EDT 1 mg Right Arm Given 02/26/2016 9:10 AM EDT 1 mg Ri ght Arm Given 02/26/2016 9:07 AM EDT 1 mg Ri ght Arm ondansetron (ZOFRAN) injection 4 mg 4 mg, Intravenous, ONCE, 1 dose, On Radhika 02/26/16 at 0930, Endoscopy (Day of Procedure) Given 02/26/2016 9:12 AM EDT 4 mg Right Arm documented in this encounter Active and Recently Administered Medications Times are shown in EDT. Scheduled Medication Order 02/24/2016 02/25/2016 02/26/2016 ondansetron (ZOFRAN) injection 4 mg (COMPLETED) 4 mg, Intravenous, ONCE, 1 dose, On Radhika 02/26/16 at 0930, Endoscopy (Day of Procedure) 0912 (Given - Provid er: Laura Suresh RN)0930 (Due) Continuous Medication Order 02/24/2016 02/25/2016 02/26/2016 lactated ringers infusion (CANCELED) 50 mL/hr, Intravenous, CONTINUOUS, Starting on Radhika 02/26/16 at 0900, Until Radhika 02/26/16 at 1011, Endoscopy (Day of Procedure) 0853 (New Bag - Prov ider: Niya Boone RN) PRN Medication Order 02/24/2016 02/25/2016 02/26/2016 fentaNYL 50 mcg/mL multi-dose injection (CANCELED) ONCE PRN, Starting on Radhika 02/26/16 at 0907, Until Radhika 02/26/16 at 1215, Intra-Operative (Intra-Procedure), Routine 0907 (Given - Provid er: Laura Suresh RN)0910 (Given - Provider: Laura Suresh, TAHMINA)0914 (Given - Provider: Laura Suresh RN) midazolam (PF) (VERSED) 1 mg/mL multi-dose injection (CANCELED) ONCE PRN, Starting on Radhika 02/26/16 at 0907, Until Radhika 02/26/16 at 1215, Intra-Operative (Intra-Procedure), Routine 0907 (Given - Provid er: Laura Suresh RN)09 (Given - Provider: Laura Suresh RN)0913 (Given - Provider: Laura Suresh RN) documented in this encounter Care Teams Tie Layer Relationship Specialty Start Date End Date Puja Tesfaye MD [facility] [address] [address] PCP - General 05/06/14 01/22/18 documented as of this encounter
--- OUTSIDE RECORDS SUMMARY | 2024-02-12 14:17 | XMS_ITS | Encounter Summary ---
Author Organization [facility] [place] [address] Care Team Providers Care Hall Porter Name Role Phone Puja Tesfaye MD Primary Care Provider Reason for Visit * Reason Comments Medication Refill Encounter Details Date Type Department Care Team (Late st Contact Info) Description 12/10/2017 Ref[place] [phone] Camilla Nava MD [facility] [place] [address] Ulcerative colitis without complications, unspecified location Social [...] EDT Clinical Support Primary Care at [address] [address] 03/12/2024 8:50 [place] [phone] Camilla Nava MD [facility] [place] [address] 03/20/2024 8:00 AM EST Office [place] [address] Camilla Nava MD [facility] [place] [address] documented as of this encounter Visit Diagnoses Diagnosis Ulcerative colitis without complications, unspecified location documented in this encounter Care Teams Hall Porter Relationship Specialty Start Date End Date Puja Tesfaye MD [facility] [place] [address] [place] [address] PCP - General 05/06/14 01/22/18 documented as of this encounter
--- OUTSIDE RECORDS SUMMARY | 2024-02-12 14:17 | XMS_ITS | Encounter Summary ---
Author Organization Formerly [facility] [place] [address] Care Team Providers Care Mail Sorter Name Role Phone Puja Tesfaye MD Primary Care Provider Encounter Details Date Type Department Care Team (Latest Contact Info) Description 10/14/2017 4:30 PM EDT Laboratory Appointment Lab [address] [place] [address] Autoimmune hepatitis Social History Tobacco [...] EDT Clinical Support Primary Care at [address] [phone] 03/12/2024 8:50 [place] [address] Camilla Nava MD [facility] [place] [address] 03/20/2024 8:00 AM EST Office [place] [address] Camilla Nava MD [facility] [place] [address] documented as of this encounter Procedures Procedure Name Priority Date/Time Associated Diagnosis Comments GAMMA GT Routine 10/14/2017 4:47 PM EDT Autoimmune hepatitis HEPATIC FUNCTION PANEL Routine 10/14/2017 4:47 PM EDT Autoimmune hepatitis documented in this encounter Results * (ABNORMAL) Gamma GT (10/14/2017 4:47 PM EDT) Pathologist [facility] Gamma Glutamyl Transferase 398(H) 8 - 61 unit/L [facility] Blood specimen (specimen) 10/14/2017 4:47 PM EDT 10/14/2017 4:57 PM EDT Narrative Resulting Agency Comment Spec In Lab Camilla Nava MD CHEMISTRY ORDERABLES [facility] [place] [address] * (ABNORMAL) Hepatic Function Panel (10/14/2017 4:47 PM EDT) Pathologist [facility] Protein, Total 7.5 6.1 - 8.0 gm/dL [facility] Albumin 4.5 3.2 - 5.2 gm/dL [facility] Aspartate Aminotransferase 45(H) 0 - 39 unit/L [facility] Alanine Aminotransferase 65(H) 0 - 55 unit/L [facility] Alkaline Phosphatase 172(H) 40 - 120 unit/L [facility] Bilirubin, Total 0.4 0.2 - 1.3 mg/dL [facility] Bilirubin, Direct 0.1 0.0 - 0.3 mg/dL [facility] Blood specimen (specimen) 10/14/2017 4:47 PM EDT 10/14/2017 4:57 PM EDT Narrative Resulting Agency Comment Spec In Lab Camilla Nava MD CHEMISTRY ORDERABLES [facility] [place] [address] documented in this encounter Visit Diagnoses Diagnosis Autoimmune hepatitis documented in this encounter Care Teams Mail Sorter Relationship Specialty Start Date End Date Puja Tesfaye MD [facility] [address] [place] [facility] [phone] PCP - General 05/06/14 01/22/18 documented as of this encounter
--- OUTSIDE RECORDS SUMMARY | 2024-02-12 14:17 | XMS_ITS | Encounter Summary ---
Author Organization [facility] [place] [address] Care Team Providers Care Manufacturing Finance Manager Name Role Phone Puja Tesfaye MD Primary Care Provider Reason for Visit * Reason Comments Medication Refill Encounter Details Date Type Department Care Team (Late st Contact Info) Description 08/22/2017 Refill [place] [phone] Camilla Nava MD [facility] [address] Autoimmune hepatitis Social History Tobacco Use Types [...] EDT Clinical Support Primary Care at [address] [phone] 03/12/2024 8:50 AM EST [place] [phone] Camilla Nava MD [facility] [place] [address] 03/20/2024 8:00 AM EST Office Visit [place] [phone] Camilla Nava MD [facility] [place] [address] documented as of this encounter Visit Diagnoses Diagnosis Autoimmune hepatitis documented in this encounter Care Teams Manufacturing Finance Manager Relationship Specialty Start Date End Date Puja Tesfaye MD [facility] [place] [address] PCP - General 05/06/14 01/22/18 documented as of this encounter
--- OUTSIDE RECORDS SUMMARY | 2024-02-12 14:17 | XMS_ITS | Encounter Summary ---
Author Organization [facility] [place] [address] Care Team Providers Care Collision Center Manager Name Role Phone Puja Tesfaye MD Primary Care Provider Reason for Visit * Reason Comments Medication Refill Encounter Details Date Type Department Care Team (Late st Contact Info) Description 06/18/2016 Ref[place] [phone] Camilla Nava MD [facility] [place] [address] Ulcerative colitis without complications, unspecified location Social [...] EDT Clinical Support Primary Care at [address] [phone] 03/12/2024 8:50 AM [place] [phone] Camilla Nava MD [facility] [place] [address] 03/20/2024 8:00 AM EST Office [place] [address] Camilla Nava MD [facility] [place] [address] documented as of this encounter Visit Diagnoses Diagnosis Ulcerative colitis without complications, unspecified location documented in this encounter Care Teams Collision Center Manager Relationship Specialty Start Date End Date Puja Tesfaye MD [facility] [place] [address] PCP - General 05/06/14 01/22/18 documented as of this encounter
--- OUTSIDE RECORDS SUMMARY | 2024-02-12 14:17 | XMS_ITS | Encounter Summary ---
Author Organization [facility] [place] [address] Care Team Providers Care Lock Tender Name Role Phone Puja Tesfaye MD Primary Care Provider [phone] Encounter Details Date Type Department Care Team (Late st Contact Info) Description 02/26/2016 Orders [place] [phone] Camilla Nava MD [facility] [place] [address] Autoimmune hepatitis Social History Tobacco Use Types [...] EDT Clinical Support Primary Care at [address] [phone] 03/12/2024 8:50 AM [place] [phone] Camilla Nava MD [facility] GASTROENTEROLOGY [place], [place] [phone] 03/20/2024 8:00 AM EST Office [place] [phone] Camilla Nava MD [facility] [place] [address] documented as of this encounter Visit Diagnoses Diagnosis Autoimmune hepatitis documented in this encounter Care Teams Lock Tender Relationship Specialty Start Date End Date Puja Tesfaye MD [facility]NAL [place] [address] PCP - General 05/06/14 01/22/18 documented as of this encounter
--- OUTSIDE RECORDS SUMMARY | 2024-02-12 14:17 | XMS_ITS | Encounter Summary ---
Author Organization [facility] [place] [address] Care Team Providers Care Reacher Name Role Phone Puja Tesfaye MD Primary Care Provider Encounter Details Date Type Department Care Team (Late st Contact Info) Description 12/06/2017 10:00 AM EDT Office [place] [phone] Laz Longoria MD [facility] [place] [address] Primary sclerosing cholangitis; Autoimmune hepatitis Social History [...] Sign Reading Time Taken Comments Blood Pressure 143/79 12/06/2017 9:57 AM EDT Pulse 84 12/06/2017 9:57 AM EDT Temperature - - Respiratory Rate - - Oxygen Saturation - - Inhaled Oxygen Concentration - - Weight 82.1 kg (181 lb) 12/06/2017 9:57 AM EDT Height 182.9 cm (6') 12/06/2017 9:57 AM EDT Body Mass Index 24.55 12/06/2017 9:57 AM EDT documented in this encounter Progress Notes * Laz Longoria MD - 12/06/2017 10:00 AM EDT Gastoenterology & Hepatology Follow Up Note Provider: LAZ LONGORIA MD Gender: male : 1980 Referring Physician/Primary Care Physician: Puja Tesfaye MD Problem List: 1. Autoimmune hepatitis/PSC overlap [...] normal; normal biopsies, no dysplasia Medications: Outpatient Prescriptions Marked as Taking for the 12/06/17 encounter (Office Visit) with Laz Longoria MD Medication Sig Dispense Refill ??? azaTHIOprine (IMURAN) 50 mg Tablet TAKE 2 TABLETS DAILY 180 tablet 2 ??? folic acid (FOLVITE) 1 mg Tablet TAKE 1 TABLET DAILY 90 tablet 3 ??? APRISO 0.375 gram Capsule, Sust. Release 24 hr TAKE 4 CAPSULES DAILY 360 capsule 2 ADR/ALLERGIES: Allergies Allergen Reactions ??? Hymenoptera Allergenic Extract Angioedema Generalized swelling in chest and neck. Never any wheese, sob or throat symtpoms. ??? Mefloquine Rash Rash occurred while taking sulfa medication and Mefloquine. Unaware of which gave him a reaction. ??? Sulfa (Sulfonamide Antibiotics) Rash Interval History: Mahamed Dale is a 37 y.o. male who presents for follow up of autoimmune hepatitis/PSC overlap syndrome. He comes in today at my request to discuss management of PSC. When we last met LFT's were essentially normal and we had decided on no treatment for the PSC. Since that time LFT's when up. We treated him with a 4 week course of metronidozole. Labs at the 2 week rosa maria after starting metronidozole showed no change in LFT's. Liver biopsy 2017 more c/w PSC than AIH. VITAL SIGNS BP 143/79 Pulse 84 Ht 182.9 cm (6') Wt 82.1 kg (181 lb) BMI 24.55 kg/m2 Physical Exam: appears well, in no distress. Recent Results (from the past 24 hour(s)) Gamma GT Result Value Ref Range GGT 540 (H) 8 - 61 unit/L Hepatic Function Panel Result Value Ref Range Total Protein 7.9 6.1 - 8.0 gm/dL Albumin 4.9 3.2 - 5.2 gm/dL AST 43 (H) 0 - 39 unit/L ALT 68 (H) 0 - 55 unit/L Alk Phos 158 (H) 40 - 120 unit/L Total Bilirubin 0.5 0.2 - 1.3 mg/dL Bili, Direct 0.1 0.0 - 0.3 mg/dL Assessment/Plan: 37 y.o. male with UC and autoimmune hepatitis with more recent elevations in alkaline phosphatase suspicious for PSC overlap with AIH. Liver biopsy, while subtle also confirms this suspicion. We discussed today at some length. We should continue treatment for the AIH with azathioprine. 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 There is data that patients whose alkaline phosphatase responds to ursodiol seem to have better outcomes. We discussed the data that high dose ursodiol is associated with higher mortality. Fortunately, fibroscan continues to show no significant fibrosis. UC is in remission- for now continue current therapy; colo next year. Monitor for worsening diarrhea symptoms. Plan: -Continue mesalamine for UC -Now that PSC diagnosis more clear will get yearly colonoscopy with chromo -Cholangio-carcinoma screening is controversial. We will get yearly MRI/MRCP. -Start ursodiol 500mg bid, lft's in 3 months. -Considering second opinion Greater than 25 minutes of this 30minute visit was spent in counseling and discussion. Laz Longoria MD Section of Gastroenterology & Hepatology [address] [place] [id number] Copy: Puja Tesfaye MD documented in this encounter Plan of Treatment Upcoming Encounters Date Type Department Care Team (Late st Contact Info) Description 02/13/2024 1:00 PM EDT Clinical Support Primary Care at [address] [phone] 03/12/2024 8:50 AM [place] [phone] Laz Longoria MD [facility] [place] [address] 03/20/2024 8:00 AM EST Office [place] [phone] Laz Longoria MD [facility] [place] [address] documented as of this encounter Procedures Procedure Name Priority Date/Time Associated Diagnosis Comments IGG 4 Routine 12/06/2017 11:27 AM EDT Primary sclerosing cholangitis GAMMA GT Routine 12/06/2017 11:27 AM EDT Primary sclerosing cholangitis HEPATIC FUNCTION PANEL Routine 12/06/2017 11:27 AM EDT Autoimmune hepatitis documented in this encounter Results * (ABNORMAL) Hepatic Function Panel (12/06/2017 11:27 AM EDT) Protein, Total 7.9 6.1 - 8.0 gm/dL [facility] Albumin 4.9 3.2 - 5.2 gm/dL [facility] Aspartate Aminotransferase 43(H) 0 - 39 unit/L [facility] Alanine Aminotransferase 68(H) 0 - 55 unit/L [facility] Alkaline Phosphatase 158(H) 40 - 120 unit/L [facility] Bilirubin, Total 0.5 0.2 - 1.3 mg/dL [facility] Bilirubin, Direct 0.1 0.0 - 0.3 mg/dL [facility] Blood specimen (specimen) 12/06/2017 11:27 AM EDT 12/06/2017 11:47 AM EDT Narrative Resulting Agency Comment Spec In Lab Laz Longoria MD CHEMISTRY ORDERABLES [facility] [place] [address] * (ABNORMAL) Gamma GT (12/06/2017 11:27 AM EDT) Gamma Glutamyl Transferase 540(H) 8 - 61 unit/L [facility] Blood specimen (specimen) 12/06/2017 11:27 AM EDT 12/06/2017 11:47 AM EDT Narrative Resulting Agency Comment Spec In Lab Laz Longoria MD CHEMISTRY ORDERABLES Performing Organization Address [facility]/ZIP Co de Phone Number [facility] [place] [address] * IgG 4 (12/06/2017 11:27 AM EDT) IgG 4 30.8 4.0 - 86.0 mg/dL [facility] Comment: Test Performed by [facility], [place] [facility], [address] [place] [address] Manjinder Donnelly M.D., Ph.D., Director of Laboratories , [place] [id number] Blood specimen (specimen) 12/06/2017 11:27 AM EDT 12/06/2017 1:42 PM EDT Narrative Resulting Agency Comment Spec In Lab Laz Longoria MD IMMUNOLOGY ORDERABLE S Performing Organization Address City/[facility]/ZIP Co de Phone Number [facility] [place] [address] documented in this encounter Visit Diagnoses Diagnosis Primary sclerosing cholangitis Cholangitis Autoimmune hepatitis documented in this encounter Care Teams Reacher Relationship Specialty Start Date End Date Puja Tesfaye MD [facility] [address] [place] [address] PCP - General 05/06/14 01/22/18 documented as of this encounter
--- OUTSIDE RECORDS SUMMARY | 2024-02-12 14:17 | XMS_ITS | Encounter Summary ---
Author Organization [facility] [place] [address] Care Team Providers Care Coat Cutter Name Role Phone Puja Tesfaye MD Primary Care Provider Encounter Details Date Type Department Care Team (Latest Contact Info) Description 12/30/2015 1:40 PM EDT Laboratory Appointment Lab [address] [phone] Autoimmune hepatitis; Ulcerative colitis without complications, unspecified location; Abnormal alkaline phosphatase test Social History Tobacco Use Types Packs/Day Years [...] PM EDT Clinical Support Primary Care at [address] [phone] 03/12/2024 8:50 AM [place] [phone] Camilla Nava MD [facility] [place] [address] 03/20/2024 8:00 AM EST Office Visit Gastroenterology at [facility] [place] [phone] Camilla Nava MD [facility] [place] [address] documented as of this encounter Procedures Procedure Name Priority Date/Time Associated Diagnosis Comments HEMOGRAM Routine 12/30/2015 2:01 PM EDT Ulcerative colitis without complications, unspecified location Abnormal alkaline phosphatase test DIFFERENTIAL, AUTOMATED Routine 12/30/2015 2:01 PM EDT Ulcerative colitis without complications, unspecified location Abnormal alkaline phosphatase test CBC (WITH DIFF) Routine 12/30/2015 2:01 PM EDT Ulcerative colitis without complications, unspecified location Abnormal alkaline phosphatase test GAMMA GT Routine 12/30/2015 2:01 PM EDT Ulcerative colitis without complications, unspecified location Abnormal alkaline phosphatase test COMPREHENSIVE METABOLIC PANEL Routine 12/30/2015 2:01 PM EDT Ulcerative colitis without complications, unspecified location Abnormal alkaline phosphatase test documented in this encounter Results * Differential, Automated (12/30/2015 2:01 PM EDT) Neutrophil % 70.1 % [facility] Neutrophil Absolute 4.82 1.50 - 6.30 x10(3)/[facility] Lymph % 22.1 % [facility] Lymphocytes Abs 1.5 1.0 - 3.6 x10(3)/[facility] Monocyte % 6.8 % [facility] Monocyte Abs 0.5 0.2 - 1.0 x10(3)/[facility] Eos % 0.3 % [facility] Eosinophils Abs 0.0 0.0 - 0.5 x10(3)/[facility] Basophil % 0.4 % [facility] Baso Absolute 0.0 0.0 - 0.2 x10(3)/[facility] Immature Gran % 0.30 % [facility] Comment: Immature granulocytes(IG's)percentage and absolute count will include metamyelocytes, myelocytes, and promyelocytes. Blood smears from CBCs yielding IG's will be scanned manually for concordance. If this scan disagrees with the automated IG or if promyelocytes are noted, a manual differential will be performed. Immature Gran Absolute 0.02 0.00 - 0.05 x10(3)/[facility] Blood specimen (specimen) 12/30/2015 2:01 PM EDT 12/30/2015 2:39 PM EDT Narrative Resulting Agency Comment Spec In Lab Camilla Nava MD HEMATOLOGY ORDERABLE S [facility] [place] [address] * Hemogram (12/30/2015 2:01 PM EDT) White Blood Cell 6.9 4.0 - 10.0 x10(3)/[facility] Red Blood Cell 4.74 4.63 - 6.08 x10(6)/[facility] Hemoglobin 14.9 13.7 - 17.5 gm/dL [facility] Hematocrit 41.8 40.0 - 51.0 % [facility] Mean Cell Volume 88.2 79.0 - 92.0 fL [facility] Mean Cell Hemoglobin 31.4 25.6 - 32.2 pg [facility] Mean Cell Hemoglobin Concentration 35.6 32.0 - 36.5 gm/dL [facility] Platelet 257 145 - 370 x10(3)/[facility] RDW Standard Deviation 43.2 35.0 - 46.0 fL [facility] RDW coefficient of variation 13.2 10.9 - 14.4 % [facility] Mean Platelet Volume 10.4 9.0 - 12.0 fL [facility] NRBC% auto 0.0 % [facility] NRBC Absolute 0.000 0.000 - 0.012 x10(3)/mcL [facility] Blood specimen (specimen) 12/30/2015 2:01 PM EDT 12/30/2015 2:39 PM EDT Narrative Resulting Agency Comment Spec In Lab Camilla Nava MD HEMATOLOGY ORDERABLE S Performing Organization Address City/[facility] Co de Phone Number [facility] [place] [address] * (ABNORMAL) Gamma GT (12/30/2015 2:01 PM EDT) [facility] Gamma Glutamyl Transferase 302(H) 8 - 61 unit/L [facility] Blood specimen (specimen) 12/30/2015 2:01 PM EDT 12/30/2015 2:39 PM EDT Narrative Resulting Agency Comment Spec In Lab Camilla Nava MD CHEMISTRY ORDERABLES Performing Organization Address [facility] Co de Phone Number [facility] [place] [address] * Comprehensive metabolic panel (non-fasting) (12/30/2015 2:01 PM EDT) [facility] Glucose 126 65 - 199 mg/dL [facility] Comment:Diabetes: >=200 mg/d L plus symptoms Blood Urea Nitrogen 10 10 - 20 mg/dL [facility] Creatinine 0.81 0.80 - 1.50 mg/dL [facility] Comment: Please note that the pediatric reference intervals supplied above were not validated at [facility]. Results from pediatric patients should be interpreted in conjunction to the patient's age, height and muscle mass. Sodium 140 135 - 145 mmol/L [facility] Potassium 3.7 3.5 - 5.0 mmol/L [facility] Comment: Please note: ??Patients with WBC >100,000 may have falsely elevated Potassium levels. ??For accurate Potassium quantification in these patients send serum separator tube (gold top) for subsequent determinations. ??Contact the Clinical Chemistry Laboratory if there are any questions. Chloride 102 98 - 107 mmol/L [facility] Carbon Dioxide 23 22 - 31 mmol/L [facility] Anion Gap 15 5 - 15 mmol/L [facility] Calcium 9.0 8.5 - 10.5 mg/dL [facility] Protein, Total 7.6 6.1 - 8.0 gm/dL [facility] Albumin 4.6 3.2 - 5.2 gm/dL [facility] Aspartate Aminotransferase 28 0 - 39 unit/L [facility] Alanine Aminotransferase 34 0 - 55 unit/L [facility] Alkaline Phosphatase 107 40 - 120 unit/L [facility] Bilirubin, Total 0.7 0.2 - 1.3 mg/dL [facility] Bilirubin, Direct 0.1 0.0 - 0.3 mg/dL [facility] Est Glomerular Filtration Rate >60 >=60 [facility] Comment: This estimated GFR (eGFR) value was calculated using the MDRD equation which has been validated on patients between the ages of 18 and 70. The MDRD should not be used to assess kidney function in patients < 18 years of age or in patients with extremes of body mass, or in patients with acute kidney failure. This value should be multiplied by 1.2 for patients. For further information please copy and paste the following links into your internet browser. [email or web address]/DHnkdep [email or web address] Blood specimen (specimen) 12/30/2015 2:01 PM EDT 12/30/2015 2:39 PM EDT Narrative Resulting Agency Comment Spec In Lab Camilla Nava MD CHEMISTRY ORDERABLES [facility] [place] [address] documented in this encounter Visit Diagnoses Diagnosis Autoimmune hepatitis Ulcerative colitis without complications, unspecified location Abnormal alkaline phosphatase test Other nonspecific abnormal serum enzyme levels documented in this encounter Care Teams Coat Cutter Relationship Specialty Start Date End Date Puja Tesfaye MD [facility] [place] [address] PCP - General 05/06/14 01/22/18 documented as of this encounter
--- OUTSIDE RECORDS SUMMARY | 2024-02-12 14:17 | XMS_ITS | Encounter Summary ---
Author Organization [facility] [place] [address] Care Team Providers Care Circular Clerk Name Role Phone Elizabeth Youssef MD Primary Care Provider [phone] Encounter Details Date Type Department Care Team (Latest Contact Info) Description 03/23/2018 12:15 PM EST Laboratory Appointment Lab [address] [address] Autoimmune hepatitis; Primary sclerosing cholangitis; PSC (primary sclerosing cholangitis) Social History Tobacco [...] EDT Clinical Support Primary Care at [address] [phone] 03/12/2024 8:50 AM [place] [address] Camilla Nava MD [facility] DR GASTROENTEROLOGY [place] [phone] 03/20/2024 8:00 AM EST Office Visit Gastroenterology at [facility] [place] [phone] Camilla Nava MD [facility] [place] [address] documented as of this encounter Procedures Procedure Name Priority Date/Time Associated Diagnosis Comments HEMOGRAM Routine 03/23/2018 12:26 PM EST PSC (primary sclerosing cholangitis) DIFFERENTIAL, AUTOMATED Routine 03/23/2018 12:26 PM EST PSC (primary sclerosing cholangitis) CBC (WITH DIFF) Routine 03/23/2018 12:26 PM EST PSC (primary sclerosing cholangitis) GAMMA GT Routine 03/23/2018 12:26 PM EST Primary sclerosing cholangitis HEPATIC FUNCTION PANEL Routine 03/23/2018 12:26 PM EST Autoimmune hepatitis documented in this encounter Results * Differential, Automated (03/23/2018 12:26 PM EST) Neutrophil % 72.8 % [facility] Neutrophil Absolute 5.75 1.70 - 6.10 x10(3)/[facility] Lymph % 18.7 % [facility] Lymphocytes Abs 1.5 0.9 - 3.2 x10(3)/[facility] Monocyte % 7.4 % [facility] Monocyte Abs 0.6 0.3 - 0.9 x10(3)/[facility] Eos % 0.3 % [facility] Eosinophils Abs 0.0 0.0 - 0.4 x10(3)/[facility] Basophil % 0.5 % [facility] Baso Absolute 0.0 0.0 - 0.1 x10(3)/[facility] Immature Gran % 0.30 % [facility] Comment: Immature granulocytes(IG's)percentage and absolute count will include metamyelocytes, myelocytes, and promyelocytes. Blood smears from CBCs yielding IG's will be scanned manually for concordance. If this scan disagrees with the automated IG or if promyelocytes are noted, a manual differential will be performed. Immature Gran Absolute 0.02 0.00 - 0.04 x10(3)/[facility] Blood specimen (specimen) 03/23/2018 12:26 PM EST 03/23/2018 12:35 PM EST Narrative Resulting Agency Comment Spec In Lab Camilla Nava MD HEMATOLOGY ORDERABLE S Performing Organization Address City/State/[facility] Co de Phone Number [facility] [place] [address] * Hemogram (03/23/2018 12:26 PM EST) White Blood Cell 7.9 4.0 - 9.5 x10(3)/[facility] Red Blood Cell 5.18 4.58 - 5.54 x10(6)/[facility] Hemoglobin 16.4 13.7 - 16.5 gm/dL [facility] Hematocrit 46.7 40.5 - 48.5 % [facility] Mean Cell Volume 90.2 82.9 - 93.[address] [facility] Mean Cell Hemoglobin 31.7 27.5 - 32.[address] [facility] Mean Cell Hemoglobin Concentration 35.1 32.0 - 35.7 gm/dL [facility] Platelet 258 145 - 357 x10(3)/[facility] RDW Standard Deviation 42.9 36.0 - 45.0 [facility] RDW coefficient of variation 13.1 11.4 - 13.8 % [facility] Mean Platelet Volume 10.1 7.6 - 12.[address] [facility] NRBC% auto 0.0 % [facility] NRBC Absolute 0.000 0.000 - 0.000 x10(3)/mcL [facility] Blood specimen (specimen) 03/23/2018 12:26 PM EST 03/23/2018 12:35 PM EST Narrative Resulting Agency Comment Spec In Lab Camilla Nava MD HEMATOLOGY ORDERABLE S Performing Organization Address [facility] Co de Phone Number [facility] [address] * Gamma GT (03/23/2018 12:26 PM EST) Gamma Glutamyl Transferase 52 8 - 61 unit/L [facility] Blood specimen (specimen) 03/23/2018 12:26 PM EST 03/23/2018 12:35 PM EST Narrative Resulting Agency Comment Spec In Lab Camilla Nava MD CHEMISTRY ORDERABLES Performing Organization Address [facility] Co vt Phone Number [facility] [place] [address] * Hepatic Function Panel (03/23/2018 12:26 PM EST) Protein, Total 7.9 6.1 - 8.0 gm/dL [facility] Albumin 4.8 3.2 - 5.2 gm/dL [facility] Aspartate Aminotransferase 19 0 - 39 unit/L [facility] Alanine Aminotransferase 21 0 - 55 unit/L [facility] Alkaline Phosphatase 91 40 - 120 unit/L [facility] Bilirubin, Total 0.6 0.2 - 1.3 mg/dL [facility] Bilirubin, Direct 0.1 0.0 - 0.3 mg/dL [facility] Blood specimen (specimen) 03/23/2018 12:26 PM EST 03/23/2018 12:35 PM EST Narrative Resulting Agency Comment Spec In Lab Camilla Nava MD CHEMISTRY ORDERABLES Performing Organization Address City/[facility] Co de Phone Number [facility] [place] [address] documented in this encounter Visit Diagnoses Diagnosis Autoimmune hepatitis Primary sclerosing cholangitis Cholangitis PSC (primary sclerosing cholangitis) Cholangitis documented in this encounter Care Teams Circular Clerk Relationship Specialty Start Date End Date Elizabeth Youssef MD [facility] [place] [address] PCP - General General Internal Medicine 01/23/1808/24 documented as of this encounter
--- OUTSIDE RECORDS SUMMARY | 2024-02-12 14:17 | XMS_ITS | Encounter Summary ---
Author Organization [facility] [place] [id number] Care Team Providers Care Notary Public Name Role Phone Puja Tesfaye MD Primary Care Provider Reason for Referral * Diagnostic Test (Routine) - Closed Specialty Diagnoses / Procedures Referred By Contac t Referred To Contact Radiology Diagnoses Autoimmune hepatitis Procedures IR Biopsy Liver Percutaneous PRO NEEDLE BIOPSY LIVER Camilla Nava MD [facility] [place] [address] [place] [address] Referral ID Status Reason Start Date Expiration Date V isits Requested Visits Authorized [id number] Closed Specialty Service Requested 09/27/2016 09/27/2017 1 1 Encounter Details Date Type Department Care Team (Late st Contact Info) Description 09/27/2016 Orders [place] [address] Camilla Nava MD [facility] [place] [address] Autoimmune hepatitis Social History Tobacco Use Types [...] PM EDT Clinical Support Primary Care at [address] [phone] 03/12/2024 8:50 AM [place] [phone] Camilla Nava MD [facility] [place] [address] 03/20/2024 8:00 AM EST Office Visit [place] [phone] Camilla Nava MD [facility] [place] [address] documented as of this encounter Results * IR Biopsy Liver Percutaneous (10/13/2016 11:17 AM EDT) Anatomical Region Laterality Modality Abdomen X-Ray Angiograph y Narrative 10/13/2016 12:19 PM EDT INTERVENTIONAL RADIOLOGY PROCEDURE NOTE Procedure: US guided liver biopsy Indication: Mahamed Dale is a 36 y.o. male with history of autoimmune hepatitis (dx 2001), ulcerative colitis, following by [facility] - last seen in office 11/25/15. He apparently had a prolonged flare in [id number], now under control, with fibroscan showing only minimal fibrosis. Dr. Nava is suspicious for PSC/AIH overlap given mild ALP elevation and h/o UC. Plan is for MRCP and, if LFTs remain elevated, also liver biopsy with IR. ?? Technique: After obtaining informed consent, patient was positioned supine. Initial localizing U/S scan obtained. A site for bx was chosen and identified on the skin. The skin was marked, prepped, and local anesthesia provided with 1% lidocaine. Maximum sterile barrier technique was used throughout. Due to the painful nature of the procedure, patient received split doses of intravenous fentanyl and versed from the IR nurse while pulse, pressure, and oxygen saturation were continuously monitored. A 17ga coaxial needle was directed into the liver with U/S guidance from a right lateral approach. Five 18ga core bxs were obtained. Gelfoam slurry was injected through the coaxial needle as it was withdrawn. Post biopsy scan was performed with no evidence of hematoma. Medications: Lidocaine 1% <10 mL SQ, Versed 2 mg IV, Fentanyl 100 mcg IV EBL: 10cc Complications: No immediate Impression: 1) US guided liver biopsy with five 18ga cores obtained. 2) US post-biopsy showed no evidence of hematoma or subcapsular fluid. Phototypesetting Equipment Monitor(s): Resident/Fellow: Chet Lóepz Attending: Dr. Martins. ??I, Dr. Martins was present throughout this procedure. ??I was present during the intraservice time as documented by the IR Nurse. Camilla Nava MD IMG IR ORDERABLES documented in this encounter Visit Diagnoses Diagnosis Autoimmune hepatitis Autoimmune hepatitis documented in this encounter Care Teams Notary Public Relationship Specialty Start Date End Date Puja Tesfaye MD [facility] [address] [place] [address] PCP - General 05/06/14 01/22/18 documented as of this encounter
--- OUTSIDE RECORDS SUMMARY | 2024-02-12 14:17 | XMS_ITS | Encounter Summary ---
Author Organization [facility] [place] [address] Care Team Providers Care Director Informatics Name Role Phone Puja Tesfaye MD Primary Care Provider Encounter Details Date Type Department Care Team (Late st Contact Info) Description 03/24/2016 Telephone [place] [phone] Gilbert Lozano Social History Tobacco Use Types Packs/Day Years [...] encounter Miscellaneous Notes * Telephone Encounter - Charmaine Gonzalez RN - 03/24/2016 4:30 PM EST Call placed to pharmacy. Per pharmacist, Azathioprine 100 mg dose available in name brand. This is $80 more than generic. Inquires ok to fill for 50 mg tablets and patient can take 2. Advised this isok. Call placed to Mahamed. Reviewed discussion with pharmacy regarding Azathioprine. Advised he'll received rx for 50 mg tablets. Reviewed he should take 2 tablets QD. The patient indicates understandingof these issues and agrees with the plan. * Telephone Encounter - Gilbert Lozano - 03/24/2016 10:23 AM EST Caller: Pharmacy Call for: Liver Nurse Reason for call: Pt wants generic form of azaTHIOprine but generic doesn't come in the 100mg. Wouldhave to make slight change to scription and need the Okay. Call back number: [phone] Call back urgency: Routine Ok to leave detailed message? - Patient's preferred method of communication: - documented in this encounter Plan of Treatment Upcoming Encounters Date Type Department Care Team (Late st Contact Info) Description 02/13/2024 1:00 PM EDT Clinical Support Primary Care at [address] [phone] 03/12/2024 8:50 AM [place] [address] Camilla Nava MD [facility] [place] [address] 03/20/2024 8:00 AM EST Office Visit [place] [address] Camilla Nava MD [facility] [place] [address] documented as of this encounter Visit Diagnoses Not on filedocumented in this encounter Care Teams Director Informatics Relationship Specialty Start Date End Date Puja Tesfaye MD [facility] [place] [address] PCP - General 05/06/14 01/22/18 documented as of this encounter
--- OUTSIDE RECORDS SUMMARY | 2024-02-12 14:17 | XMS_ITS | Encounter Summary ---
Author Organization [facility] [place] [address] Care Team Providers Care Director Of Placement Name Role Phone Puja Tesfaye MD Primary Care Provider Encounter Details Date Type Department Care Team (Latest Contact Info) Description 11/17/2016 11:25 AM EDT Laboratory Appointment Lab [address] [place] [address] Autoimmune hepatitis Social History Tobacco [...] EDT Clinical Support Primary Care at [address] [phone] 03/12/2024 8:50 [place] [address] Camilla Nava MD [facility] [place] [address] 03/20/2024 8:00 AM EST Office [place] [address] Camilla Nava MD [facility] [place] [address] documented as of this encounter Procedures Procedure Name Priority Date/Time Associated Diagnosis Comments ABORH RECHECK STATUS Routine 11/17/2016 11:34 AM EDT ABO/RH TYPING Routine 11/17/2016 11:34 AM EDT Autoimmune hepatitis ANTIBODY SCREEN Routine 11/17/2016 11:34 AM EDT Autoimmune hepatitis TYPE AND SCREEN ([facility]/CHRISTIAN) Routine 11/17/2016 11:34 AM EDT Autoimmune hepatitis GAMMA GT Routine 11/17/2016 11:34 AM EDT Autoimmune hepatitis HEPATIC FUNCTION PANEL Routine 11/17/2016 11:34 AM EDT Autoimmune hepatitis documented in this encounter Results * ABORH Recheck Status (11/17/2016 11:34 AM EDT) ABORH Type Recheck Completed [facility] Blood specimen (specimen) 11/17/2016 11:34 AM EDT 11/17/2016 11:45 AM EDT Narrative Resulting Agency Comment Spec In Lab Camilla Nava MD BLOOD BANK LAB ORDER LATASHA [facility] [place] [address] * Antibody screen (11/17/2016 11:34 AM EDT) Ab Screen Interp Negative [facility] Expires at [id number] on: 11/20/2016 [facility] Blood specimen (specimen) 11/17/2016 11:34 AM EDT 11/17/2016 11:45 AM EDT Narrative Resulting Agency Comment Spec In Lab Camilla Nava MD BLOOD BANK LAB ORDER LATASHA Performing Organization Address City/[facility]/ZIP Co de Phone Number [facility] [place] [address] * ABO/Rh Typing (11/17/2016 11:34 AM EDT) ABORH Type O Neg [facility] Blood specimen (specimen) 11/17/2016 11:34 AM EDT 11/17/2016 11:45 AM EDT Narrative Resulting Agency Comment Spec In Lab Camilla Nava MD BLOOD BANK LAB ORDER LATASHA Performing Organization Address [facility] Co de Phone Number [facility] [place] [address] * (ABNORMAL) Gamma GT (11/17/2016 11:34 AM EDT) Pathologist [facility] Gamma Glutamyl Transferase 370(H) 8 - 61 unit/L [facility] Blood specimen (specimen) 11/17/2016 11:34 AM EDT 11/17/2016 11:40 AM EDT Narrative Resulting Agency Comment Spec In Lab Camilla Nava MD CHEMISTRY ORDERABLES Performing Organization Address City/[facility] Co de Phone Number [facility] [place] [address] * (ABNORMAL) Hepatic Function Panel (11/17/2016 11:34 AM EDT) Protein, Total 7.9 6.1 - 8.0 gm/dL [facility] Albumin 4.6 3.2 - 5.2 gm/dL [facility] Aspartate Aminotransferase 39 0 - 39 unit/L [facility] Alanine Aminotransferase 55 0 - 55 unit/L [facility] Alkaline Phosphatase 142(H) 40 - 120 unit/L [facility] Bilirubin, Total 0.4 0.2 - 1.3 mg/dL [facility] Bilirubin, Direct 0.1 0.0 - 0.3 mg/dL [facility] Blood specimen (specimen) 11/17/2016 11:34 AM EDT 11/17/2016 11:40 AM EDT Narrative Resulting Agency Comment Spec In Lab Camilla Nava MD CHEMISTRY ORDERABLES [facility] [place] [address] documented in this encounter Visit Diagnoses Diagnosis Autoimmune hepatitis documented in this encounter Care Teams Director Of Placement Relationship Specialty Start Date End Date Puja Tesfaye MD [facility] [address] [place] [address] PCP - General 05/06/14 01/22/18 documented as of this encounter
--- OUTSIDE RECORDS SUMMARY | 2024-02-12 14:17 | XMS_ITS | Encounter Summary ---
Author Organization [facility] [place] [address] Care Team Providers Care Business Analytics Director Name Role Phone Puja Tesfaye MD Primary Care Provider Encounter Details Date Type Department Care Team (Latest Contact Info) Description 03/01/2017 5:05 PM EST Laboratory Appointment Lab [address] [place] [address] Autoimmune hepatitis Social History Tobacco [...] EDT Clinical Support Primary Care at [address] [phone] 03/12/2024 8:50 AM [place] [address] Camilla Nava MD [facility] [place] [address] 03/20/2024 8:00 AM EST Office [place] [address] Camilla Nava MD [facility] [place] [address] documented as of this encounter Procedures Procedure Name Priority Date/Time Associated Diagnosis Comments GAMMA GT Routine 03/01/2017 5:24 PM EST Autoimmune hepatitis HEPATIC FUNCTION PANEL Routine 03/01/2017 5:24 PM EST Autoimmune hepatitis documented in this encounter Results * (ABNORMAL) Gamma GT (03/01/2017 5:24 PM EST) Gamma Glutamyl Transferase 233(H) 8 - 61 unit/L [facility] Blood specimen (specimen) 03/01/2017 5:24 PM EST 03/01/2017 5:35 PM EST Narrative Resulting Agency Comment Spec In Lab Camilla Nava MD CHEMISTRY ORDERABLES [facility] [place] [address] * (ABNORMAL) Hepatic Function Panel (03/01/2017 5:24 PM EST) Protein, Total 8.1(H) 6.1 - 8.0 gm/dL [facility] Albumin 5.1 3.2 - 5.2 gm/dL [facility] Aspartate Aminotransferase 26 0 - 39 unit/L [facility] Alanine Aminotransferase 38 0 - 55 unit/L [facility] Alkaline Phosphatase 117 40 - 120 unit/L [facility] Bilirubin, Total 0.4 0.2 - 1.3 mg/dL [facility] Bilirubin, Direct 0.1 0.0 - 0.3 mg/dL [facility] Blood specimen (specimen) 03/01/2017 5:24 PM EST 03/01/2017 5:35 PM EST Narrative Resulting Agency Comment Spec In Lab Camilla Nava MD CHEMISTRY ORDERABLES [facility] [place] [address] documented in this encounter Visit Diagnoses Diagnosis Autoimmune hepatitis documented in this encounter Care Teams Business Analytics Director Relationship Specialty Start Date End Date Puja Tesfaye MD [facility] [address] [place] [address] PCP - General 05/06/14 01/22/18 documented as of this encounter
--- OUTSIDE RECORDS SUMMARY | 2024-02-12 14:17 | XMS_ITS | Encounter Summary ---
Author Organization [facility] [place] [address] Care Team Providers Care [employer] Name Role Phone Puja Tesfaye MD Primary Care Provider [phone] Reason for Referral * Diagnostic Test (Routine) - Closed Specialty Diagnoses / Procedures Referred By Contac t Referred To Contact Radiology Diagnoses Autoimmune hepatitis Procedures IR Biopsy Liver Percutaneous PRO NEEDLE BIOPSY LIVER Camilla Longoria MD [facility] [place] [address] [facility] [place] [address] Referral ID Status Reason Start Date Expiration Date V isits Requested Visits Authorized [id number] Closed Specialty Service Requested 09/27/2016 09/27/2017 1 1 Reason for Visit * Diagnostic Test (Routine) - Closed Specialty Diagnoses / Procedures Referred By Contac t Referred To Contact Radiology Diagnoses Autoimmune hepatitis Procedures IR Biopsy Liver Percutaneous PRO NEEDLE BIOPSY LIVER Camilla Longoria MD [facility] [place] [address] [facility] [place] [address] Referral ID Status Reason Start Date Expiration Date V isits Requested Visits Authorized [id number] Closed Specialty Service Requested 09/27/2016 09/27/2017 1 1 Encounter Details Date Type Department Care Team (Latest Contact Info) Description 10/13/2016 10:14 AM EDT - 10/13/2016 11:59 PM EDT Hospital Encounter Radiology at [facility] [place] [address] Camilla Longoria MD [facility] [place] [address] Autoimmune hepatitis Discharge Disposition: Home Social History Tobacco Use [...] Sign Reading Time Taken Comments Blood Pressure 104/56 10/13/2016 1:00 PM EDT Pulse 77 10/13/2016 11:15 AM EDT Temperature 36.8 ??C (98.3 ??F) 10/13/2016 10:28 AM E DT Respiratory Rate 16 10/13/2016 1:00 PM EDT Oxygen Saturation 97% 10/13/2016 1:00 PM EDT Inhaled Oxygen Concentration - - Weight - - Height - - Body Mass Index - - documented in this encounter Discharge Instructions * Discharge Instructions* Dian Barroso RN - 10/13/2016 12:04 PM EDT [facility] Vascular and Interventional Radiology Biopsy Discharge Instructions ??? Liver, kidney or bone biopsy: call your doctor immediately if you develop a sudden onset of weakness, increased pain or swelling at the biopsy site or heavy bleeding at the biopsy site. ??? Lung biopsy: coughing up a little blood is common during the next 24 hours. If large blood clots come up, or if the bleeding gets worse, you should contact us or your doctor immediately. The mostcommon complication is collapse of the lung. The symptoms of lung collapse are increasing pain on breathing, often extending into the shoulder on the side of the biopsy, and increasing difficulty breathing. If these symptoms occur after you leave the hospital, have someone drive you to the nearest Emergency Department as it must be treated promptly or call 911. Activity And Diet: ??? Go home and rest quietly for the remainder of the day. You may resume your normal activities tomorrow. ??? Resume your usual diet after the procedure. ??? Do not drive, sign any important/legal documents, or make any important decisions for 24 hours following sedation medications. When to call your healthcare provider: ??? If you see any redness, swelling or drainage at the biopsy site. ??? If you develop chills. ??? If you have a fever greater than or equal to 101 degrees Fahrenheit. ??? If you develop pain around the biopsy site. Bandage: ??? Check the dressing/bandaid throughout the day for an increase in drainage. Keep the biopsy sitedry for 24 hours. Replace the bandaid as needed. You may shower 24 hours after the biopsy. Medication: ??? DO NOT take aspirin-containing products, ibuprofen, or blood-thinning medication for the next 24 hours unless your doctor says you may do so. ??? Generally you may use acetaminophen as needed for discomfort unless you have liver disease and are instructed not to take acetaminophen. Biopsy Results ??? The results of your biopsy should be available within 5 business days and will be reported to you by your primary restorative care technician or the clinician who ordered the biopsy. Please do not call us forresults as we will not have them. ??? If you have not been contacted by your clinician within 5 business days you should call that office for further information. When to call the Interventional Radiology Department: Please call with any questions or concerns. If it is during regular office hours, please call [phone]. If it is after regular office hours, or on weekends or holidays, please call [phone] and ask to speak to the Liver Trimmer service correspondent for Interventional Radiology. You have received medication during your procedure to help lessen anxiety and keep you comfortable.These medications affect judgement and reaction time. We recommend that you do not drive, operate equipment, sign any important documents, or smoke unattended for 24 hours following your procedure. Because of the sedation, be careful on stairs, as you may be unsteady on your feet. You may resume your regular diet as tolerated. IV site -- slight redness, or tenderness is normal, you can use a warm compress. If tenderness and redness increases or foul drainage occurs, please contact your M. D. Revised 05/09/15 documented in this encounter Medications at Time of Discharge Medication Sig Dispensed Refills Start Date End Date azaTHIOprine (IMURAN) 50 mg Tablet 09/14/2016 11/23/2016 APRISO 0.375 gram Capsule, Sust. Release 24 hrIndications:Ulcerati ve colitis without complications, unspecified location TAKE 4 CAPSULES DAILY 360 capsule 2 06/18/2016 03/15/2017 folic acid (FOLVITE) 1 mg TabletIndications:Ulce rative colitis without complications, unspecified location TAKE 1 TABLET DAILY 90 tablet 3 05/10/2016 05/05/2017 azaTHIOprine 100 mg TabletIndications:Ulce rative colitis without complications, unspecified location Take 1 tablet by mouth daily. 90 tablet 3 11/25/2015 03/28/2018 documented as of this encounter Progress Notes * Halley Marina RN - 10/13/2016 11:59 PM EDT Interventional and Vascular Radiology Post-Procedure Call Name: Mahamed Dale Age: 36 y.o. Sex; Male Date of : 1980 (home) Telephone Information: PCP Puja Tesfaye MD [phone] Date/Time of call: October 14, 2016/8:20 AM Procedure: US guided liver biopsy Procedural Provider: Alessandro Nance Contact with patient or if not, with whom? no Message left on answering machine? yes Provider notified via phone or email if unable to contact pt: no Are you having pain related to your procedure now? Lung bx: Any shortness of breath, coughing up blood or chest pain? Liver bx: Any pain a biopsy site: Are you having any swelling or bleeding from the site? Are there any improvement in your symptoms? Are you having any other problems related to your procedure? Comments: Did you understand the discharge instructions given and do you have any questions? Comments: Do you have any comments about your Nurse or Provider or the care you received? Nurse Comments: * Dian Barroso RN - 10/13/2016 1:14 PM EDT Pt given dc instructions, no questions or concerns. Pt ambulatory with steady gait. Dressing CDI. * Bucky Francois MD - 10/13/2016 10:34 AM EDT VIR PRE-PROCEDURE VIR NOTE ADDENDUM Name: Mahamed Dale Date of : 1980 Procedure: US guided liver biopsy The patient's history and physical exam have been reviewed and completed. There has been no interval change from that of the pre-operative history and physical exam done within the last 30 days. Physical Examination: Chest: clear to auscultation, no wheezes, rales or rhonchi, symmetric air entry, no tachypnea, retractions or cyanosis Heart: normal rate, regular rhythm, normal S1, S2, no murmurs, rubs, clicks or gallops ASA 2 - Patient with mild systemic disease with no functional limitations Mallampati I (soft palate, uvula, fauces, tonsillar pillars visible) The planned procedure, its benefits/risks and alternatives were discussed with the patient and consent was given. -Bucky Francois MD (Pager #[phone]) * Beatrice Rausch RN - 10/08/2016 2:38 PM EDT [facility] DATAB[facility] Name: MAHAMED DALE Date of : 1980 AGE 36 y.o. [address]: [address] [place] [phone] (home) Mobile: Telephone Information: Referring Provider: Camilla Longoria REASON FOR VISIT: Question Answer Comment Where will study be performed? [facility] Reason for exam and clinical history: Patient with autoimmune hepatitis, IBD, rising liver tests, ?overlap with PSC Exam/Procedure requested: biopsy of the liver Is the patient on anticoagulant / anitplatelet therapy ? No Anticoagulant/antiplatelet/herbal med. stopped on per MD order. Allergies Allergen Reactions ??? Hymenoptera Allergenic Extract Angioedema Generalized swelling in chest and neck. Never any wheese, sob or throat symtpoms. ??? Mefloquine Rash Rash occurred while taking sulfa medication and Mefloquine. Unaware of which gave him a reaction. ??? Sulfa (Sulfonamide Antibiotics) Rash Pertinent PMH: Patient Active Problem List Diagnosis Code ??? Hepatitis, autoimmune K75.4 ??? Ulcerative colitis K51.90 ??? Healthcare maintenance Z00.00 Pertinent PSH: Past Surgical History: Procedure Laterality Date ??? CREATED BY INTERFACE COLONOSCOPY-BIOPSY Procedure Date: 02/12/2009 ??? CREATED BY INTERFACE LIVER BIOPSY,ENDOSCOPIC Procedure Date: 11/24/2001 ??? PRO COLONOSCOPY, BIOPSY 02/23/2012 COLONOSCOPY FLEXIBLE, WITH BX performed by CAMILLA LONGORIA at [facility] ??? PRO COLONOSCOPY, BIOPSY N/A 02/26/2016 COLONOSCOPY FLEXIBLE, WITH BX performed by Camilla Longoria MD at [facility] ??? PRO COLONOSCOPY, DIAGNOSTIC N/A 03/06/2014 COLONOSCOPY, DIAGNOSTIC performed by Camilla Longoria MD at [facility] Date/Procedure Med's given/comments 10/13/16 Percutaneous liver biopsy Versed 2 mg IV, fentanyl 100 mcg IV Laboratory Results: Lab Results Component Value Date CREATININE 0.81 12/30/2015 Lab Results Component Value Date K 3.7 12/30/2015 Lab Results Component Value Date PLATELET 244 09/23/2016 Medications: Prior to Admission medications Medication Sig Start Date End Date Taking? Authorizing Provider APRISO 0.375 gram Capsule, Sust. Release 24 hr TAKE 4 CAPSULES DAILY 06/18/16 Camilla Longoria MD folic acid (FOLVITE) 1 mg Tablet TAKE 1 TABLET DAILY 05/10/16 Camilla Longoria MD azaTHIOprine 100 mg Tablet Take 1 tablet by mouth daily. 11/25/15 Camilla Longoria MD * Homero Whitfield MD - 09/30/2016 3:00 PM EDT Images from the original note were not included. INTERVENTIONAL RADIOLOGY FOCUSED H&P and PRE-PROCEDURE NOTE: PCP: Puja Tesfaye MD Referring Physician: Camilla Longoria Planned Procedure: Biopsy of the liver Procedure Indication: Autoimmune hepatitis, IBD, rising liver tests, ?overlap with PSC Presenting Diagnosis/ Complaint: Mahamed Dale is a 36 y.o. male with history of autoimmune hepatitis (dx 2001), ulcerative colitis, following by [facility] - last seen in office 11/25/15. He apparently had a prolonged flare in 0106-6012, now under control, with fibroscan showing only minimal fibrosis. Dr. Longoria is suspicious for PSC/AIH overlap given mild ALP elevation and h/o UC. Plan is for MRCPand, if LFTs remain elevated, also liver biopsy with IR. Past Medical/Surgical History: Patient Active Problem List Diagnosis Code ??? Hepatitis, autoimmune K75.4 ??? Ulcerative colitis K51.90 ??? Healthcare maintenance Z00.00 Past Medical History: Diagnosis Date ??? Anemia ??? Hepatitis Past Surgical History: Procedure Laterality Date ??? CREATED BY INTERFACE COLONOSCOPY-BIOPSY Procedure Date: 02/12/2009 ??? CREATED BY INTERFACE LIVER BIOPSY,ENDOSCOPIC Procedure Date: 11/24/2001 ??? PRO COLONOSCOPY, BIOPSY 02/23/2012 COLONOSCOPY FLEXIBLE, WITH BX performed by CAMILLA LONGORIA at [facility] ??? PRO COLONOSCOPY, BIOPSY N/A 02/26/2016 COLONOSCOPY FLEXIBLE, WITH BX performed by Camilla Longoria MD at [facility] ??? PRO COLONOSCOPY, DIAGNOSTIC N/A 03/06/2014 COLONOSCOPY, DIAGNOSTIC performed by Camilla Longoria MD at [facility] Medications: Current Outpatient Prescriptions on File Prior to Encounter Medication Sig Dispense Refill ??? APRISO 0.375 gram Capsule, Sust. Release 24 hr TAKE 4 CAPSULES DAILY 360 capsule 2 ??? folic acid (FOLVITE) 1 mg Tablet TAKE 1 TABLET DAILY 90 tablet 3 ??? azaTHIOprine 100 mg Tablet Take 1 tablet by mouth daily. 90 tablet 3 No current facility-administered medications on file prior to encounter. Allergies: Hymenoptera allergenic extract; Mefloquine; and Sulfa (sulfonamide antibiotics) Social History and Habits: Social History Social History ??? Marital status: Spouse name: N/A ??? Number of children: N/A ??? Years of education: N/A Occupational History ??? Not on file. Social History Main Topics ??? Smoking status: Never Smoker ??? Smokeless tobacco: Never Used ??? Alcohol use 0.0 oz/week 1 - 4 Standard drinks or equivalent per week Comment: 1 drink a day ??? Drug use: No ??? Sexual activity: Yes Partners: Female Other Topics Concern ??? 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 Parkinsonism Father 60 ??? Pacemaker Father ??? Inflammatory Bowel Disease Maternal Grandfather ??? Rheumatoid Arthritis Maternal Grandmother ??? Lung Cancer Paternal Grandmother ??? Heart Failure Paternal Grandfather Physical Examination: pending Labs: Lab Results Component Value Date WBC 7.3 09/23/2016 HCT 43.6 09/23/2016 PLATELET 244 09/23/2016 BUN 10 12/30/2015 CREATININE 0.81 12/30/2015 ALKPHOS 200 (H) 09/23/2016 AST 46 (H) 09/23/2016 ALBUMIN 4.6 09/23/2016 BILIDIR 0.1 09/23/2016 BILITOT 0.4 09/23/2016 ALT 73 (H) 09/23/2016 PROT 7.8 09/23/2016 Imagin02/10/16 ASA: Pending (to be assessed in angio the day of procedure) Mallampati Class: Pending (to be assessed in angio the day of procedure) Assessment/Plan: 36 y.o. male with h/o AIH, UC and mild ALP elevation concerning for AIH/PSC overlap. Plan is for liver biopsy with IR. I have reviewed the sedation plan for this patient???s case and concur that Fentanyl and Versed areappropriate choices for sedation and will be provided per the protocoled order set for this case Labs to be performed day of procedure: none additional Medication to STOP: none Sedation: Moderate sedation per IR RN protocols Prophylactic antibiotic: none Additional medications for procedure: none Planned access site: TBD Position: supine Consent: Pending - Homero Whitfield MD (Pager #[phone]) 09/30/2016 documented in this encounter Procedure Notes * Gavin Martins MD - 10/13/2016 12:20 PM EDT INTERVENTIONAL RADIOLOGY PROCEDURE NOTE Procedure: US guided liver biopsy Indication: Mahamed Dale is a 36 y.o. male with history of autoimmune hepatitis (dx 2001), ulcerative colitis, following by [facility] - last seen in office 11/25/15. He apparently had a prolonged flare in [id number], now under control, with fibroscan showing only minimal fibrosis. Dr. Longoria is suspicious for PSC/AIH overlap given mild [...] no evidence of hematoma or subcapsular fluid. Tuber Machine Operator(s): Resident/Fellow: Chet López Attending: Dr. Martins. I, Dr. Martins was present throughout this procedure. I was present during the intraservice time as documented by the IR Nurse. documented in this encounter Nursing Notes * Beatrice Rausch RN - 10/13/2016 11:13 AM EDT Needle out * Beatrice Rausch RN - 10/13/2016 10:58 AM EDT To procedure room 3 via stretcher for U/S guided liver biopsy. Remains on stretcher safely positioned. All monitors, O2, safety strap in place. Versed and fentanyl per protocol. documented in this encounter Plan of Treatment Upcoming Encounters Date Type Department Care Team (Late st Contact Info) Description 02/13/2024 1:00 PM EDT Clinical Support Primary Care at [address] [address] 03/12/2024 8:50 AM [place] [address] Camilla Longoria MD [facility] [place] [address] 03/20/2024 8:00 AM EST Office [place] [address] Camilla Longoria MD [facility] [place] [address] documented as of this encounter Procedures Procedure Name Priority Date/Time Associated Diagnosis Comments IR BIOPSY LIVER PERCUTANEOUS - NON-FOCAL PARENCHYMA Routine 10/13/2016 11:17 AM EDT Autoimmune hepatitis SPECIMEN TO PATHOLOGY (NON-OR) Routine 10/13/2016 10:39 AM EDT SURGICAL PATHOLOGY REPORT Routine 10/13/2016 10:39 AM EDT documented in this encounter Results * IR Biopsy Liver [...] He apparently had a prolonged flare in [id number], now under control, with fibroscan showing only minimal fibrosis. Dr. Longoria is suspicious for PSC/AIH overlap given mild [...] no evidence of hematoma or subcapsular fluid. Tuber Machine Operator(s): Resident/Fellow: Chet López Attending: Dr. Martins. ??I, Dr. Martins was present throughout this procedure. ??I was present during the intraservice time as documented by the IR Nurse. Camilla Longoria MD IMG IR ORDERABLES * Surgical Pathology Report (10/13/2016 10:39 AM EDT) Final Diagnosis [id number] ?Location: [facility] The signing pathologist has (i) examined the relevant preparation(s) for the specimen(s) and (ii) rendered or confirmed the diagnosis(es). . ?Surgical Pathology DIAGNOSIS Liver tissue, ??biopsy: - The biopsy shows patchy portal and focal lobular foci of chronic inflammation. Bile ducts show moderate damage. There is ductular reaction, but no evidence of ductopenia. Trichrome stain highlights mild to moderate portal fibrosis with periductal concentric accentuarion in some portal tracts. Focal bridging fibrosis cannot be excluded. In comparison to [id number], there is increase in portal inflammation and fibrosis. 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 Electronically signed by: ??Elijah Cortes MD Verified: ??10/18/2016 ?Pathologist ADDITIONAL STUDIES Whole slide scan: A1, A2, trichrome. CLINICAL INFORMATION Specimen Submitted: A - Liver tissue Clinical History: Patient with autoimmune hepatitis, IBD, rising liver tests,? ??Overlap with PSC Clinical Diagnosis: Patient with autoimmune hepatitis, IBD, rising liver tests,? ??Overlap with PSC SPECIMEN PROCESSING A - ??Labeled/Fixati ve: Liver tissue, formalin. Quantity/Size: Six, ranging from 0.5 x 0.1 cm to 1.7 x 0.1 cm. Tissue Description: Brown needle core biopsies. Sections/Process ing: Submitted en-toto. (T2) ??shb 10/18/2016 11:37 AM EDT [facility] LIVER STRUCTURE / Unknown 10/13/2016 10:39 AM EDT 10/13/2016 10:39 AM EDT Camilla Longoria MD PATHOLOGY/CYTOLOGY O RDKAYODE Performing Organization Address City/[facility]/ZIP Co de Phone Number [facility] [place] [address] * Specimen to Pathology (NON-OR) (10/13/2016 10:39 AM EDT) AP Specimen 10/13/2016 10:3 9 AM EDT 10/13/2016 10:39 AM EDT Narrative [facility] - 10/13/2016 10:39 AM EDT Specimen requisition ordered. ??Separate Pathology report to follow Camilla Longoria MD PATHOLOGY/CYTOLOGY O RDERABLES Performing Organization Address [facility]/ZIP [place] [address] documented in this encounter Visit Diagnoses Diagnosis Autoimmune hepatitis documented in this encounter Administered Medications Inactive Administered Medications - up to 3 most recent administrations Medication Order MAR Action Action Date Dose Rate Site fentaNYL 50 mcg/mL multi-dose injection 25-50 mcg, Intravenous, EVERY 5 MIN PRN, Starting on Tue10/13/16 at 1028, Until Tue10/13/16 at 1114, Pain, per unit protocol, - Start dose 50 mcg (reduce dose to 25 mcg if history of sedation sensitivity). - Titration dose 25-50 mcg IV, (based on patient response) every 3 minutes PRN, to maintain procedural pain less than 2 per pain Scale. Maximum dose: 50 mcg/dose, 250 mcg/hour For use in Interventional Radiology (IR) only for procedural sedation with direct provider supervision and verbal order., Angio/IR (Intra-Procedure), Routine Given 10/13/2016 11:02 AM EDT 50 mcg Given 10/13/2016 10:58 AM EDT 50 mcg lidocaine (XYLOCAINE) 10 mg/mL (1 %) injection 10 mg 10 mg, Subcutaneous, ONCE, 1 dose, On Tue10/13/16 at 1045, For use in Interventional Radiology (IR) only for procedure with direct provider supervision and verbal order., Angio/IR (Intra-Procedure), Routine Given 10/13/2016 11:03 AM EDT 10 mg midazolam (PF) (VERSED) 1 mg/mL multi-dose injection 0.5-1 mg 0.5-1 mg, Intravenous, EVERY 3 MIN PRN, Starting on Tue10/13/16 at 1028, Until Tue10/13/16 at 1114, Sleep, - Start dose; 1 mg (Reduce dose to 0.5 mg if history of sedation sensitivity). - Titration dose: 0.5 mg - 1 mg (based on patient response) every 3 minutes PRN to obtain RASS score of -3. Maximum dose: 1 mg per dose, 5 mg/hour. For use in Interventional Radiology (IR) only for procedural sedation with direct provider supervision and verbal order., Angio/IR (Intra-Procedure), Routine Given 10/13/2016 11:02 AM EDT 1 mg Given 10/13/2016 10:58 AM EDT 1 mg documented in this encounter Care Teams [employer] Teacher Relationship Specialty Start Date End Date Puja Tesfaye MD [facility] [address] [place] [address] PCP - General 05/06/14 01/22/18 documented as of this encounter
--- OUTSIDE RECORDS SUMMARY | 2024-02-12 14:17 | XMS_ITS | Encounter Summary ---
Author Organization [facility] [place] [address] Care Team Providers Care Automatic Fabric Cutter Name Role Phone Puja Tesfaye MD Primary Care Provider Reason for Visit * Reason Comments Follow-up Encounter Details Date Type Department Care Team (Late st Contact Info) Description 11/16/2016 4:30 PM EDT Office [place] [address] Laz Longoria MD [facility] [place] [address] Autoimmune hepatitis Social History Tobacco Use Types [...] Sign Reading Time Taken Comments Blood Pressure 124/81 11/16/2016 4:30 PM EDT Pulse 93 11/16/2016 4:30 PM EDT Temperature - - Respiratory Rate - - Oxygen Saturation - - Inhaled Oxygen Concentration - - Weight 80.5 kg (177 lb 8 oz) 11/16/2016 4:30 PM EDT Height 182.9 cm (6') 11/16/2016 4:30 PM EDT Body Mass Index 24.07 11/16/2016 4:30 PM EDT documented in this encounter Progress Notes * Laz Longoria MD - 11/16/2016 4:30 PM EDT Gastoenterology & Hepatology Follow Up Note Provider: LAZ LONGORIA MD Gender: male : 1980 Referring Physician/Primary Care Physician: Puja Tesfaye MD Problem List: 1. Autoimmune hepatitis diagnosed 2001 with transaminases 400-500 range, ASMA [...] Kpascal; 7% IQR; 100% validity c/w F0-F1 2. Ulcerative colitis quiescent but was likely pancolitis diagnosed 1994, 1 major flare 2000 treated with prednisone maintained on asacol 1600mg bid folic acid aza (for AIH) last colonoscopy 01/2013 normal; normal biopsies, no dysplasia Medications: Outpatient Prescriptions Marked as Taking for the 11/16/16 encounter (Office Visit) with Laz Longoria MD Medication Sig Dispense Refill ??? azaTHIOprine (IMURAN) 50 mg Tablet ??? APRISO 0.375 gram Capsule, Sust. Release 24 hr TAKE 4 CAPSULES DAILY 360 capsule 2 ??? folic acid (FOLVITE) 1 mg Tablet TAKE 1 TABLET DAILY 90 tablet 3 ??? azaTHIOprine 100 mg Tablet Take 1 tablet by mouth daily. 90 tablet 3 ADR/ALLERGIES: Allergies Allergen Reactions ??? Hymenoptera Allergenic Extract Angioedema Generalized swelling in chest and neck. Never any wheese, sob or throat symtpoms. ??? Mefloquine Rash Rash occurred while taking sulfa medication and Mefloquine. Unaware of which gave him a reaction. ??? Sulfa (Sulfonamide Antibiotics) Rash Interval History: Mahamed Dale is a 36 y.o. 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 Biopsy 10/13/2016: Liver tissue, ??biopsy: - The biopsy shows [...] with chronic cholangiopathy, ??stage 2 or 2-3/4. Stools are a bit looser, increased gas. VITAL SIGNS BP 124/81 Pulse 93 Ht 182.9 cm (6') Wt 80.5 kg (177 lb 8 oz) BMI 24.07 kg/m2 Physical Exam: appears well, in no distress. Assessment/Plan: 36 y.o. male with UC and autoimmune hepatitis [...] for worsening diarrhea symptoms. Plan: -Continue mesalamine -Repeat liver tests to get a new baseline -He will contact me about starting ursodiol 500mg bid after we see today's labs -Considering second opinion Greater than 25 minutes of this 30minute visit was spent in counseling and discussion. Laz Longoria MD Section of Gastroenterology & Hepatology [address] [place] [id number] Copy: Puja Tesfaye MD documented in this encounter Plan of Treatment Upcoming Encounters Date Type Department Care Team (Late st Contact Info) Description 02/13/2024 1:00 PM EDT Clinical Support Primary Care at [address] [address] 03/12/2024 8:50 AM [place] [address] Laz Longoria MD [facility] [place] [address] 03/20/2024 8:00 AM EST Office [place] [address] Laz Longoria MD [facility] [place] [address] Scheduled Orders Name Type Priority Associated Diagnoses Orde r Schedule Hepatic Function Panel Lab Routine Autoimmune hepatitis Expected: 11/16/2016, Expires: 05/18/2017 documented as of this encounter Visit Diagnoses Diagnosis Autoimmune hepatitis documented in this encounter Care Teams Automatic Fabric Cutter Relationship Specialty Start Date End Date Puja Tesfaye MD [facility] [place] [address] PCP - General 05/06/14 01/22/18 documented as of this encounter
--- OUTSIDE RECORDS SUMMARY | 2024-02-12 14:17 | XMS_ITS | Encounter Summary ---
Author Organization [facility] [place] [address] Care Team Providers Care Community Relations Advisor Name Role Phone Puja Tesfaye MD Primary Care Provider Reason for Visit * Reason Comments Medication Refill Encounter Details Date Type Department Care Team (Late st Contact Info) Description 05/10/2016 Refill [place] [phone] Camilla Nava MD [facility] [place] [address] Ulcerative colitis without complications, unspecified location Social [...] EDT Clinical Support Primary Care at [address] [address] 03/12/2024 8:50 AM [place] [phone] Camilla Nava MD [facility] [place] [address] 03/20/2024 8:00 AM EST Office Visit [place] [address] Camilla Nava MD [facility] [place] [address] documented as of this encounter Visit Diagnoses Diagnosis Ulcerative colitis without complications, unspecified location documented in this encounter Care Teams Community Relations Advisor Relationship Specialty Start Date End Date Puja Tesfaye MD [facility] [place] [address] [place] [address] PCP - General 05/06/14 01/22/18 documented as of this encounter
--- OUTSIDE RECORDS SUMMARY | 2024-02-12 14:17 | XMS_ITS | Encounter Summary ---
Author Organization [facility] [place] [address] Care Team Providers Care Section Maintainer Name Role Phone Puja Tesfaye MD Primary Care Provider Reason for Visit * Reason Comments Annual Exam Encounter Details Date Type Department Care Team (Late st Contact Info) Description 10/31/2017 8:00 AM EDT Office Visit Internal Medicine at [address] [address] Puja Tesfaye MD [facility] [place] [address] Healthcare maintenance Social History Tobacco Use Types [...] Sign Reading Time Taken Comments Blood Pressure 126/73 10/31/2017 8:00 AM EDT Pulse 84 10/31/2017 8:00 AM EDT Temperature - - Respiratory Rate - - Oxygen Saturation 100% 10/31/2017 8:00 AM EDT Inhaled Oxygen Concentration - - Weight 82 kg (180 lb 12.8 oz) 10/31/2017 8:00 AM EDT Height 183.7 cm (6' 0.32) 10/31/2017 8:00 AM ED T Body Mass Index 24.3 10/31/2017 8:00 AM EDT documented in this encounter Progress Notes * Puja Tesfaye MD - 10/31/2017 8:00 AM EDT Chief Complaint Patient presents with ??? Annual Exam HPI Diagnosed with PSC last summer. Has had difficulty with the diagnosis- now he has stopped doing research on the subject, is sleeping, not feeling sad unless specifically thinking about it. 2. Status of chronic conditions: Patient Active Problem List Diagnosis Code ??? Hepatitis, autoimmune K75.4 ??? Ulcerative colitis K51.90 ??? Healthcare maintenance Z00.00 Primary care questionnaire: myD-H Primary Care 10/31/2017 PROMIS 10-Health in general Good PROMIS 10-Quality of life Very Good PROMIS 10-Physical health Good PROMIS 10-Mental health Good PROMIS 10-Satisfaction with social activities Fair PROMIS 10-Ability to carry out social activities Very Good PROMIS 10-Ability to carry out physical activities Completely PROMIS 10-Bothered by emotional problems Rarely PROMIS 10-Rate of fatigue Mild PROMIS 10-Rate of pain 0 -No Pain PROMIS 10- Physical Health Score 54.1 PROMIS 10- Mental Health Score 45.8 REVIEW OF SYSTEMS 10/31/2017 Constitutional Fatigue, lack of energy Ear / nose / throat / mouth None of the above Eyes Other eye problems Respiratory None of the above Cardiovascular None of the above Gastrointestinal Diarrhea Skin, hair Itching Musculoskeletal None of the above Neurological None of the above Hematologic / Lymphatic None of the above Genitourinary Dribbling No flowsheet data found. No flowsheet data found. PHQ-9 QUESTIONNAIRE (AMB) 10/31/2017 PHQ - 9 Score (Clinic) - Little interest or pleasure (Clinic) - Little interest or pleasure (Patient) Not at all Down, depressed, hopeless (Clinic) - Down, depressed, hopeless (Patient) Not at all Past Medical History: Diagnosis Date ??? Anemia ??? Hepatitis Family History Problem Relation Age of Onset ??? Parkinsonism Father 60 ??? Pacemaker Father ??? Inflammatory Bowel Disease Maternal Grandfather ??? Rheumatoid Arthritis Maternal Grandmother ??? Lung Cancer Paternal Grandmother ??? Heart Failure Paternal Grandfather Social History Social History ??? 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 Physical exam: BP 126/73 Pulse 84 Ht 183.7 cm (6' 0.32) Wt 82 kg (180 lb 12.8 oz) SpO2 100% BMI 24.3 kg/m2 Physical Exam Constitutional: He is oriented to person, place, and time. No distress. HENT: Head: Atraumatic. Cardiovascular: Normal rate and regular rhythm. Pulmonary/Chest: Effort normal and breath sounds normal. Abdominal: Soft. Musculoskeletal: He exhibits no edema. Lymphadenopathy: He has no cervical adenopathy. Neurological: He is alert and oriented to person, place, and time. Vitals reviewed. Assessment and Plan: 1. Healthcare maintenance: Fasting labs through work , all [facility] Health Maintenance Summary HIV screen Overdue 1997 Tetanus vaccine Next Due 05/01/2022 Done 05/01/2012 Imm Admin: Tdap Vaccine Patient has more history with this topic... Lipid Screening Next Due 08/12/2020 Done outside per patient (enter details in comments) 08/13/2015 Colonoscopy Next Due 02/25/2018 Done 02/26/2016 COLONOSCOPY Patient has more history with this topic... Influenza (Flu) vaccine Next Due 12/24/2017 Done 01/24/2017 Imm Admin: Influenza Vaccine PF, Quadrivalent Patient has more history with this topic... Tdap adult Completed Done 05/01/2012 Imm Admin: Tdap Vaccine Recommended mindfulness and exercise to cope and increase resilience to stress. documented in this encounter Plan of Treatment Upcoming Encounters Date Type Department Care Team (Hamamd gibson Contact Info) Description 02/13/2024 1:00 PM EDT Clinical Support Primary Care at [address] [phone] 03/12/2024 8:50 AM [place] [address] Camilla Nava MD [facility] GASTROENTEROLOGY [place], [place] [phone] 03/20/2024 8:00 AM EST Office [place] [address] Camilla Nava MD [facility] [place] [address] documented as of this encounter Visit Diagnoses Diagnosis Healthcare maintenance Routine general medical examination at a health care facility documented in this encounter Care Teams Section Maintainer Relationship Specialty Start Date End Date Puja Tesfaye MD [facility] [address] [facility] [place] [address] PCP - General 05/06/14 01/22/18 documented as of this encounter
--- OUTSIDE RECORDS SUMMARY | 2024-02-12 14:17 | XMS_ITS | Encounter Summary ---
Author Organization [facility] [place] [address] Care Team Providers Care Glass Cutter Helper Name Role Phone Puja Tesfaye MD Primary Care Provider Encounter Details Date Type Department Care Team (Latest Contact Info) Description 06/01/2017 4:05 PM EST Laboratory Appointment Lab [address] [place] [address] Autoimmune hepatitis Social History Tobacco [...] PM EDT Clinical Support Primary Care at [address] [phone] 03/12/2024 8:50 AM [place] [address] Camilla Nava MD [facility] [place] [address] 03/20/2024 8:00 AM EST Office [place] [address] Camilla Nava MD [facility] [place] [place] [address] documented as of this encounter Procedures Procedure Name Priority Date/Time Associated Diagnosis Comments GAMMA GT Routine 06/01/2017 4:11 PM EST Autoimmune hepatitis HEPATIC FUNCTION PANEL Routine 06/01/2017 4:11 PM EST Autoimmune hepatitis documented in this encounter Results * (ABNORMAL) Gamma GT (06/01/2017 4:11 PM EST) Gamma Glutamyl Transferase 243(H) 8 - 61 unit/L [facility] Blood specimen (specimen) 06/01/2017 4:11 PM EST 06/01/2017 4:47 PM EST Narrative Resulting Agency Comment Spec In Lab Camilla Nava MD CHEMISTRY ORDERABLES [facility] [place] [address] * Hepatic Function Panel (06/01/2017 4:11 PM EST) Protein, Total 7.7 6.1 - 8.0 gm/dL [facility] Albumin 4.9 3.2 - 5.2 gm/dL [facility] Aspartate Aminotransferase 33 0 - 39 unit/L [facility] Alanine Aminotransferase 46 0 - 55 unit/L [facility] Alkaline Phosphatase 118 40 - 120 unit/L [facility] Bilirubin, Total 0.5 0.2 - 1.3 mg/dL [facility] Bilirubin, Direct 0.1 0.0 - 0.3 mg/dL [facility] Blood specimen (specimen) 06/01/2017 4:11 PM EST 06/01/2017 4:47 PM EST Narrative Resulting Agency Comment Spec In Lab Camilla Nava MD CHEMISTRY ORDERABLES [facility] [place] [address] documented in this encounter Visit Diagnoses Diagnosis Autoimmune hepatitis documented in this encounter Care Teams Glass Cutter Helper Relationship Specialty Start Date End Date Puja Tesfaye MD [facility] [address] [facility] [place] [address] [place] [address] PCP - General 05/06/14 01/22/18 documented as of this encounter
--- OUTSIDE RECORDS SUMMARY | 2024-02-12 14:17 | XMS_ITS | Encounter Summary ---
Author Organization [facility] [place] [address] Care Team Providers Care Passenger Tire Inspector Name Role Phone Puja Tesfaye MD Primary Care Provider [phone] Encounter Details Date Type Department Care Team (Latest Contact Info) Description 09/03/2016 1:00 PM EDT Laboratory Appointment Lab [address] [place] [address] Autoimmune hepatitis Social History Tobacco [...] PM EDT Clinical Support Primary Care at [address] [phone] 03/12/2024 8:50 AM [place] [address] Camilla Nava MD [facility] [place] [address] 03/20/2024 8:00 AM EST Office [place] [address] Camilla Nava MD [facility] DR GASTROENTEROLOGY [place] [phone] documented as of this encounter Procedures Procedure Name Priority Date/Time Associated Diagnosis Comments GAMMA GT Routine 09/03/2016 1:17 PM EDT Autoimmune hepatitis HEPATIC FUNCTION PANEL Routine 09/03/2016 1:17 PM EDT Autoimmune hepatitis documented in this encounter Results * (ABNORMAL) Gamma GT (09/03/2016 1:17 PM EDT) Pathologist [facility] Gamma Glutamyl Transferase 445(H) 8 - 61 unit/L [facility] Blood specimen (specimen) 09/03/2016 1:17 PM EDT 09/03/2016 1:20 PM EDT Narrative Resulting Agency Comment Spec In Lab Camilla Nava MD CHEMISTRY ORDERABLES [facility] [place] [address] * (ABNORMAL) Hepatic Function Panel (09/03/2016 1:17 PM EDT) Pathologist [facility] Protein, Total 7.8 6.1 - 8.0 gm/dL [facility] Albumin 4.3 3.2 - 5.2 gm/dL [facility] Aspartate Aminotransferase 33 0 - 39 unit/L [facility] Alanine Aminotransferase 60(H) 0 - 55 unit/L [facility] Alkaline Phosphatase 211(H) 40 - 120 unit/L [facility] Bilirubin, Total 0.5 0.2 - 1.3 mg/dL [facility] Bilirubin, Direct 0.1 0.0 - 0.3 mg/dL [facility] Blood specimen (specimen) 09/03/2016 1:17 PM EDT 09/03/2016 1:20 PM EDT Narrative Resulting Agency Comment Spec In Lab Camilla Nava MD CHEMISTRY ORDERABLES [facility] [place] [address] documented in this encounter Visit Diagnoses Diagnosis Autoimmune hepatitis documented in this encounter Care Teams Passenger Tire Inspector Relationship Specialty Start Date End Date Puja Tesfaye MD [facility] [address] [facility] [place] [phone] PCP - General 05/06/14 01/22/18 documented as of this encounter
--- OUTSIDE RECORDS SUMMARY | 2024-02-12 14:17 | XMS_ITS | Encounter Summary ---
Author Organization [facility] Anjelica mcduffie [place] [id number] Care Team Providers Care Russian History Professor Name Role Phone Puja Tesfaye MD Primary Care Provider Reason for Referral * Diagnostic Test (Routine) - Closed Specialty Diagnoses / Procedures Referred By Ronal cabrera Referred To Contact Radiology Diagnoses Abnormal alkaline phosphatase test Procedures MRI Cholangiopancreatography Camilla Nava MD [facility] [place] [address] [place] [address] Referral ID Status Reason Start Date Expiration Date V isits Requested Visits Authorized [id number] Closed Specialty Service Requested 02/05/2016 04/04/2016 1 1 Reason for Visit * Diagnostic Test (Routine) - Closed Specialty Diagnoses / Procedures Referred By Ronal cabrera Referred To Contact Radiology Diagnoses Abnormal alkaline phosphatase test Procedures MRI Cholangiopancreatography Camilla Nava MD [facility] [place] [address] [place] [address] Referral ID Status Reason Start Date Expiration Date V isits Requested Visits Authorized [id number] Closed Specialty Service Requested 02/05/2016 04/04/2016 1 1 Encounter Details Date Type Department Care Team (Latest Contact Info) Description 02/10/2016 8:08 AM EDT - 02/10/2016 11:59 PM EDT [place] [address] Camilla Nava MD [facility] [place] [address] Abnormal alkaline phosphatase test Discharge Disposition: Home Social History Tobacco Use [...] Dispensed Refills Start Date End Date azaTHIOprine 100 mg TabletIndications:Ulce rative colitis without complications, unspecified location Take 1 tablet by mouth daily. 90 tablet 3 11/25/2015 03/28/2018 folic acid (FOLVITE) 1 mg TabletIndications:Ulce rative colitis without complications, unspecified location TAKE 1 TABLET DAILY 90 tablet 1 08/11/2015 02/12/2016 APRISO 0.375 gram Capsule, Sust. Release 24 hrIndications:Ulcerati ve colitis without complications, unspecified location TAKE 4 CAPSULES DAILY 360 capsule 3 06/25/2015 06/18/2016 documented as of this encounter Plan of Treatment Upcoming Encounters Date Type Department Care Team (Late st Contact Info) Description 02/13/2024 1:00 PM EDT Clinical Support Primary Care at [address] [phone] 03/12/2024 8:50 AM [place] [address] Camilla Nava MD [facility] [place] [address] 03/20/2024 8:00 AM EST Office [place] [address] Camilla Nava MD [facility] [place] [place] [address] documented as of this encounter Procedures Procedure Name Priority Date/Time Associated Diagnosis Comments MRI CHOLANGIOPANCREATOGRAPHY Routine 9:05 AM EDT Abnormal alkaline phosphatase test documented in this encounter Results * MRI Cholangiopancreatography (02/10/2016 9:05 AM EDT) Anatomical Region Laterality Modality Magnetic Resonan ce Impressions 02/10/2016 10:46 AM EDT New truncation of a left liver lobe biliary radicle accompanies new stricture of a more central right biliary duct branch. Ongoing follow-up suggested. Narrative 02/10/2016 10:46 AM EDT EXAMINATION: MRI CHOLANGIOPANCREATOGRAPHY CLINICAL HISTORY: Pt with UC, elevated alk phos, ?PSC TECHNIQUE: 3D-MRCP, axial and coronal 2D MRCP, axial T2 fast (turbo) spin-echo with fat saturation, axial 2D T1 weighted in/out phase. 3-D model reformatted and reviewed as part of this study. COMPARISON: March 18, 2014 FINDINGS: Bile ducts: The common bile duct measures 4mm, unchanged. New truncation of left liver lobe biliary radical. New stricture of a more central right biliary duct.. Gallbladder: Normal ? Liver: Normal size and signal intensity. ? Pancreas: Normal signal intensity Pancreatic duct: Not dilated. Spleen: Mild splenomegaly persists. Adrenal glands: Normal Kidneys: Normal Procedure Note Kerrie Ann MD - 02/10/2016 EXAMINATION: MRI CHOLANGIOPANCREATOGRAPHY CLINICAL HISTORY: Pt with UC, elevated alk phos, ?PSC TECHNIQUE: 3D-MRCP, axial and coronal 2D MRCP, axial T2 fast (turbo)spin-echo with fat saturation, axial 2D T1 weighted in/out phase. 3-D modelreformatted and reviewed as part of this study. COMPARISON: March 18, 2014 FINDINGS: Bile ducts: The common bile duct measures 4mm, unchanged. New truncationof left liver lobe biliary radical. New stricture of a more central right biliaryduct.. Gallbladder: Normal ? Liver: Normal size and signal intensity. ? Pancreas: Normal signal intensity Pancreatic duct: Not dilated. Spleen: Mild splenomegaly persists. Adrenal glands: Normal Kidneys: Normal IMPRESSION New truncation of a left liver lobe biliary radicle accompanies newstricture of a more central right biliary duct branch. Ongoing follow-up suggested. Camilla Nava MD IMG MRI ORDERABLES documented in this encounter Visit Diagnoses Diagnosis Abnormal alkaline phosphatase test Other nonspecific abnormal serum enzyme levels documented in this encounter Care Teams Russian History Professor Relationship Specialty Start Date End Date Puja Tesfaye MD [facility] [address] [facility] [place] [address] PCP - General 05/06/14 01/22/18 documented as of this encounter
--- OUTSIDE RECORDS SUMMARY | 2024-02-12 14:17 | XMS_ITS | Encounter Summary ---
Author Organization [facility] [place] [address] Care Team Providers Care Biochemist Name Role Phone Puja Tesfaye MD Primary Care Provider Encounter Details Date Type Department Care Team (Latest Contact Info) Description 03/08/2016 5:20 PM EST Laboratory Appointment Lab [address]L [place] [address] Autoimmune hepatitis Social History Tobacco [...] EDT Clinical Support Primary Care at [address] [phone] 03/12/2024 8:50 [place] [address] Camilla Nava MD [facility] [place] [address] 03/20/2024 8:00 AM EST Office [place] [address] Camilla Nava MD [facility] DR [place] [address] documented as of this encounter Procedures Procedure Name Priority Date/Time Associated Diagnosis Comments GAMMA GT Routine 03/08/2016 5:21 PM EST Autoimmune hepatitis HEPATIC FUNCTION PANEL Routine 03/08/2016 5:21 PM EST Autoimmune hepatitis documented in this encounter Results * (ABNORMAL) Gamma GT (03/08/2016 5:21 PM EST) Gamma Glutamyl Transferase 187(H) 8 - 61 unit/L [facility] Blood specimen (specimen) 03/08/2016 5:21 PM EST 03/08/2016 5:28 PM EST Narrative Resulting Agency Comment Spec In Lab Camilla Nava MD CHEMISTRY ORDERABLES [facility] [place] [address] * Hepatic Function Panel (03/08/2016 5:21 PM EST) Protein, Total 7.5 6.1 - 8.0 gm/dL [facility] Albumin 4.9 3.2 - 5.2 gm/dL [facility] Aspartate Aminotransferase 28 0 - 39 unit/L [facility] Alanine Aminotransferase 27 0 - 55 unit/L [facility] Alkaline Phosphatase 95 40 - 120 unit/L [facility] Bilirubin, Total 0.4 0.2 - 1.3 mg/dL [facility] Bilirubin, Direct 0.1 0.0 - 0.3 mg/dL [facility] Blood specimen (specimen) 03/08/2016 5:21 PM EST 03/08/2016 5:28 PM EST Narrative Resulting Agency Comment Spec In Lab Camilla Nava MD CHEMISTRY ORDERABLES [facility] [place] [address] documented in this encounter Visit Diagnoses Diagnosis Autoimmune hepatitis documented in this encounter Care Teams Biochemist Relationship Specialty Start Date End Date Puja Tesfaye MD [facility] [address] [place] [address] PCP - General 05/06/14 01/22/18 documented as of this encounter
--- OUTSIDE RECORDS SUMMARY | 2024-02-12 14:17 | XMS_ITS | Encounter Summary ---
Author Organization [facility] [place] [address] Care Team Providers Care Fluoroscope Operator Name Role Phone Puja Tesfaye MD Primary Care Provider Encounter Details Date Type Department Care Team (Latest Contact Info) Description 06/07/2016 1:15 PM EST Laboratory Appointment Lab [address] [place] [address] Autoimmune hepatitis Social History Tobacco [...] EDT Clinical Support Primary Care at [address] [phone] 03/12/2024 8:50 AM [place] [address] Camilla Nava MD [facility] [place] [address] 03/20/2024 8:00 AM EST Office Visit [place] [address] Camilla Nava MD [facility] [place] [address] documented as of this encounter Procedures Procedure Name Priority Date/Time Associated Diagnosis Comments GAMMA GT Routine 06/07/2016 1:30 PM EST Autoimmune hepatitis HEPATIC FUNCTION PANEL Routine 06/07/2016 1:30 PM EST Autoimmune hepatitis documented in this encounter Results * (ABNORMAL) Gamma GT (06/07/2016 1:30 PM EST) Gamma Glutamyl Transferase 204(H) 8 - 61 unit/L [facility] Blood specimen (specimen) 06/07/2016 1:30 PM EST 06/07/2016 1:34 PM EST Narrative Resulting Agency Comment Spec In Lab Camilla Nava MD CHEMISTRY ORDERABLES [facility] [place] [place] [address] * (ABNORMAL) Hepatic Function Panel (06/07/2016 1:30 PM EST) Protein, Total 8.1(H) 6.1 - 8.0 gm/dL [facility] Albumin 4.8 3.2 - 5.2 gm/dL [facility] Aspartate Aminotransferase 28 0 - 39 unit/L [facility] Alanine Aminotransferase 36 0 - 55 unit/L [facility] Alkaline Phosphatase 109 40 - 120 unit/L [facility] Bilirubin, Total 0.5 0.2 - 1.3 mg/dL [facility] Bilirubin, Direct 0.1 0.0 - 0.3 mg/dL [facility] Blood specimen (specimen) 06/07/2016 1:30 PM EST 06/07/2016 1:34 PM EST Narrative Resulting Agency Comment Spec In Lab Camilla Nava MD CHEMISTRY ORDERABLES [facility] [place] [place] [address] documented in this encounter Visit Diagnoses Diagnosis Autoimmune hepatitis documented in this encounter Care Teams Fluoroscope Operator Relationship Specialty Start Date End Date Puja Tesfaye MD [facility] [address] [place] [address] [place] [address] PCP - General 05/06/14 01/22/18 documented as of this encounter
--- OUTSIDE RECORDS SUMMARY | 2024-02-12 14:17 | XMS_ITS | Encounter Summary ---
Author Organization [facility] Address [facility] [place] [address] Care Team Providers Care Plaster Mold Maker Name Role Phone Puja Tesfaye MD Primary Care Provider Reason for Visit * Auth/Cert Specialty Diagnoses / Procedures Referred By Ronal cabrera Referred To Contact Diagnoses 2 yr crohns f/u from 03/06/14 Procedures PRO COLONOSCOPY, DIAGNOSTIC COLONOSCOPY, DIAGNOSTIC Referral ID Status Reason Start Date Expiration Date Visits Re quested Visits Authorized [id number] 1 1 Encounter Details Date Type Department Care Team (Latest Contact Info) Description 02/26/2016 8:02 AM EDT - 02/26/2016 10:15 AM EDT Hospital [place] [address] Camilla Nava MD [facility] [place] [address] Discharge Disposition: Home Social History Tobacco Use [...] Sign Reading Time Taken Comments Blood Pressure 115/68 02/26/2016 9:55 AM EDT Pulse 92 02/26/2016 9:55 AM EDT Temperature - - Respiratory Rate 16 02/26/2016 9:55 AM EDT Oxygen Saturation 98% 02/26/2016 9:55 AM EDT Inhaled Oxygen Concentration - - [...] to be checked. 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 Follow up care is a nunez part [...] EDT Clinical Support Primary Care at [address] [phone] 03/12/2024 8:50 [place] [address] Camilla Nava MD [facility] [place] [address] 03/20/2024 8:00 AM EST Office [place] [address] Camilla Nava MD [facility] [place] [address] documented as of this encounter Procedures Procedure [...] Report (02/26/2016 9:43 AM EDT) Final Diagnosis [id number] ?Location: 4T; EA05; A The signing pathologist [...] Sections/Process ing: (T3) ??ejr 03/02/2016 4:16 PM [facility] GI Biopsy 02/26/2016 9:43 AM EDT 02/26/2016 9:43 AM EDT GI Biopsy 02/26/2016 9:43 AM EDT 02/26/2016 9:43 AM EDT GI Biopsy 02/26/2016 9:43 AM EDT 02/26/2016 9:43 AM EDT GI Biopsy 02/26/2016 9:43 AM EDT 02/26/2016 9:43 AM EDT Camilla Nava MD PATHOLOGY/CYTOLOGY O EVELIN Performing Organization Address [facility] Co de Phone Number [facility] [place] [address] * Specimen to Pathology (surgical or derm) (02/26/2016 9:43 AM EDT) AP Specimen 02/26/2016 9:43 AM EDT 02/26/2016 9:43 AM EDT Narrative [facility] - 02/26/2016 9:43 AM EDT Specimen requisition ordered. ??Separate Pathology report to follow Camilla Nava MD PATHOLOGY/CYTOLOGY O EVELIN Performing Organization Address [facility] Co de Phone Number [facility] [place] [address] * Specimen to Pathology (surgical or derm) (02/26/2016 9:43 AM EDT) AP Specimen 02/26/2016 9:43 AM EDT 02/26/2016 9:43 AM EDT Narrative [facility] - 02/26/2016 9:43 AM EDT Specimen requisition ordered. ??Separate Pathology report to follow Camilla Nava MD PATHOLOGY/CYTOLOGY O EVELIN Performing Organization Address [facility] [place] [address] * Specimen to Pathology (surgical or derm) (02/26/2016 9:43 AM EDT) AP Specimen 02/26/2016 9:43 AM EDT 02/26/2016 9:43 AM EDT Narrative [facility] - 02/26/2016 9:43 AM EDT Specimen requisition ordered. ??Separate Pathology report to follow Camilla Nava MD PATHOLOGY/CYTOLOGY O RDERAJOSE Performing Organization Address [facility] [place] [address] * Specimen to Pathology (surgical or derm) (02/26/2016 9:43 AM EDT) AP Specimen 02/26/2016 9:43 AM EDT 02/26/2016 9:43 AM EDT Narrative [facility] - 02/26/2016 9:43 AM EDT Specimen requisition ordered. ??Separate Pathology report to follow Camilla Nava MD PATHOLOGY/CYTOLOGY O [employer] Performing Organization Address [facility] [place] [address] * COLONOSCOPY (02/26/2016 8:07 AM EDT) COLONOSCOPY [facility] Procedure Date: 02/26/2016 8:07 AM ? Patient Name: Mahamed Dale ? Date of : 1980 ? Age: 35 ? Order #: [id number] ? Instrument Name: [facility] [id number] ? Procedure: ? Colonoscopy Indications: ? High [...] EDT Puja Tesfaye MD GENERAL SURGICAL ORD [facility] documented in this encounter Visit Diagnoses Not on filedocumented in this encounter Administered Medications Inactive Administered Medications - up to 3 most recent administrations Medication Order MAR Action Action Date Dose Rate Site lactated ringers infusion 50 mL/hr, Intravenous, CONTINUOUS, Starting on Radhika 02/26/16 at 0900, Until Radhika 02/26/16 at 1011, Endoscopy (Day of Procedure) New Bag 02/26/2016 8:53 AM EDT 50 mL/hr 50 mL/hr documented in this encounter Active and Recently Administered Medications Times are shown in EDT. Scheduled Medication Order 02/24/2016 02/25/2016 02/26/2016 ondansetron (ZOFRAN) injection 4 mg (COMPLETED) 4 mg, Intravenous, ONCE, 1 dose, On Ardhika 02/26/16 at 0930, Endoscopy (Day of Procedure) [...] Laura Suresh RN)0910 (Given - Provider: Laura Suresh RN)0914 (Given - Provider: Laura Suresh RN) midazolam (PF) (VERSED) 1 mg/mL multi-dose injection (CANCELED) ONCE PRN, Starting on Radhika 02/26/16 at 0907, Until Radhika 02/26/16 at 1215, Intra-Operative (Intra-Procedure), Routine 0907 (Given - Provid er: Laura Suresh RN)0910 (Given - Provider: Laura Suresh RN)0913 (Given - Provider: Laura Suresh RN) documented in this encounter Care Teams Plaster Mold Maker Relationship Specialty Start Date End Date Puja Tesfaye MD [facility] [place] [address] PCP - General 05/06/14 01/22/18 documented as of this encounter
--- OUTSIDE RECORDS SUMMARY | 2024-02-12 14:17 | XMS_ITS | Encounter Summary ---
Author Organization [facility] [place] [address] Care Team Providers Care Can Tester Name Role Phone Elizabeth Youssef MD Primary Care Provider [phone] Encounter Details Date Type Department Care Team (Late st Contact Info) Description 03/01/2018 External Results Primary Care at [address] [phone] Kirsten Brewer RN Social History Tobacco Use Types Packs/Day Years [...] EDT Clinical Support Primary Care at [address] [phone] 03/12/2024 8:50 AM EST [place] [phone] Camilla Nava MD [facility] DR GASTROENTEROLOGY [place], [place] [phone] 03/20/2024 8:00 AM EST Office Visit [place] [address] Camilla Nava MD [facility] [place] [place] [address] documented as of this encounter Procedures Procedure Name Priority Date/Time Associated Diagnosis Comments EXTERNAL LAB PRIMARY CARE RESULTS PANEL Routine 07/25/2015 documented in this encounter Results * Primary Care External Results (07/25/2015) Cholesterol, Total 159 HDL Cholesterol 61 Triglyceride 73 LDL Cholesterol 84 Cholesterol/HDL Ratio 2.6 Glucose Fasting 91 07/25/2015 Historical Provider POINT OF CARE STEVEN T ORDERABLES documented in this encounter Visit Diagnoses Not on filedocumented in this encounter Care Teams Can Tester Relationship Specialty Start Date End Date Elizabeth Youssef MD [facility] [place] [address] PCP - General General Internal Medicine 01/23/1808/24 documented as of this encounter
--- OUTSIDE RECORDS SUMMARY | 2024-02-12 14:17 | XMS_ITS | Encounter Summary ---
Author Organization [facility] [place] [address] Care Team Providers Care Dba Developer Name Role Phone Puja Tesfaye MD Primary Care Provider [phone] Reason for Visit * Reason Comments Annual Exam Encounter Details Date Type Department Care Team (Late st Contact Info) Description 09/21/2016 1:20 PM EDT Office Visit Internal Medicine at [place] [phone] Puja Tesfaye MD [facility] [place] [address] Healthcare maintenance; Arthralgia of left elbow; Cough Social History [...] Reading Time Taken Comments Blood Pressure 117/73 09/21/2016 1:27 PM EDT Pulse 80 09/21/2016 1:27 PM EDT Temperature 36.9 ??C (98.5 ??F) 09/21/2016 1:27 PM ED T Respiratory Rate 16 09/21/2016 1:27 PM EDT Oxygen Saturation 100% 09/21/2016 1:27 PM EDT Inhaled Oxygen Concentration - - Weight 80.1 kg (176 lb 9.6 oz) 09/21/2016 1:27 P M EDT Height 185.2 cm (6' 0.91) 09/21/2016 1:27 PM ED T Body Mass Index 23.36 09/21/2016 1:27 PM EDT documented in this encounter Progress Notes * Puja Tesfaye MD - 09/21/2016 1:20 PM EDT Chief Complaint Patient presents with ??? Annual Exam HPI - URI- lingered; still has episodes of cough; started end of July. Intermittent sore throat. Kids had URIs, simple and short around the same time - had a blister in his mouth 10 days ago - his LFTs have been up, coincidentally at the time of the URI - flare-up of diarrhea - not aware of environmental allergies. 2. Status of chronic conditions: Patient Active Problem List Diagnosis Code ??? Hepatitis, autoimmune K75.4 ??? Ulcerative colitis K51.90 ??? Healthcare maintenance Z00.00 Primary care questionnaire: myD-H Primary Care 09/21/2016 PROMIS 10-Health in general Good PROMIS 10-Quality of life Very Good PROMIS 10-Physical health Good PROMIS 10-Mental health Good PROMIS 10-Satisfaction with social activities Good PROMIS 10-Ability to carry out social activities Very Good PROMIS 10-Ability to carry out physical activities Completely PROMIS 10-Bothered by emotional problems Never PROMIS 10-Rate of fatigue Mild PROMIS 10-Rate of pain 0 -No Pain PROMIS 10- Physical Health Score 54.1 PROMIS 10- Mental Health Score 50.8 REVIEW OF SYSTEMS 09/21/2016 Constitutional Fatigue, lack of energy, Pain Ear / nose / throat / mouth Sore throat, Other symptoms with ears, nose, throat, mouth Eyes None of the above Respiratory Cough Cardiovascular None of the above Gastrointestinal Diarrhea Skin, hair None of the above Musculoskeletal Back pain, Joint pain, Reduced range of motion Neurological None of the above Hematologic / Lymphatic Sore or swollen lymph nodes, glands Genitourinary Dribbling No flowsheet data found. No flowsheet data found. 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 Negative for anorexia and diaphoresis. Respiratory: Positive for cough, PND and sputum decrease. Negative for shortness of breath and wheezing. Gastrointestinal: Positive for abdominal discomfort and diarrhea. Negative for nausea. HENT: Positive for hoarse voice. Negative for sinus pressure. Musculoskeletal: Positive for joint pain (developed acute L elbow pain, swollen, ok with advil; no injury; L knee intermittent pain), myalgias and joint swelling. Cardiovascular: Negative for palpitations and leg edema. Neurological: Negative for headaches. Physical exam: BP 117/73 Pulse 80 Temp 36.9 ??C (98.5 ??F) (Oral) Resp 16 Ht 185.2 cm (6' 0.91) Wt 80.1kg (176 lb 9.6 oz) SpO2 100% BMI 23.36 kg/m2 Physical Exam Constitutional: He is oriented to person, place, and time. No distress. HENT: Head: Atraumatic. Mouth/Throat: Oropharynx is clear and moist. OP erythematous Eyes: Conjunctivae are normal. Neck: Neck supple. Cardiovascular: Normal rate and regular rhythm. Pulmonary/Chest: Breath sounds normal. He has no wheezes. He has no rales. Abdominal: Soft. Musculoskeletal: Normal range of motion. He exhibits no edema. No joint swelling; mild tenderness with palpation of L knee, infero-lat quadrant Lymphadenopathy: He has no cervical adenopathy. Neurological: He is alert and oriented to person, place, and time. Assessment and Plan: 1. Healthcare maintenance: UTD Health Maintenance Summary HIV screen Overdue 1997 Tetanus vaccine Next Due 05/01/2022 Done 05/01/2012 Imm Admin: Tdap Vaccine Patient has more history with this topic... Lipid Screening Next Due 08/12/2020 Done outside per patient (enter details in comments) 08/13/2015 Colonoscopy every 2 yrs Next Due 02/25/2018 Done 02/26/2016 COLONOSCOPY Patient has more history with this topic... Tdap adult Completed Done 05/01/2012 Imm Admin: Tdap Vaccine Influenza (Flu) vaccine Completed Done 01/26/2016 Imm Admin: Influenza PF, Split Patient has more history with this topic... Fatigue, prolonged URI, one mouth blister resolved and L elbow swelling and pain, spontaneous, resolved- Possibly part of the URi, the UC of the slight exacerbation of hepatitis. Will add labs to his due LFTs check later this weke- to include usual culprits of the fatigue and joint pain- Lyme test, TSh, CBC documented in this encounter Plan of Treatment Upcoming Encounters Date Type Department Care Team (Late st Contact Info) Description 02/13/2024 1:00 PM EDT Clinical Support Primary Care at [address] [phone] 03/12/2024 8:50 AM [place] [address] Camilla Nava MD [facility] [place] [address] 03/20/2024 8:00 AM EST Office Visit [place] [address] Camilla Nava MD [facility] [place] [address] Scheduled Orders Name Type Priority Associated Diagnoses Orde r Schedule POCT rapid strep A Point of Care Testing Routine Cough Ordered: 09/21/2016 documented as of this encounter Results * Lyme IgG & IgM Antibody (09/23/2016 4:51 PM EDT) Lyme Antibody Neg Neg [facility] Blood specimen (specimen) 09/23/2016 4:51 PM EDT 09/24/2016 7:21 AM EDT Narrative Resulting Agency Comment Spec In Lab Puja Tesfaye MD IMMUNOLOGY ORDERABLE S Performing Organization Address City/[facility]/[place] [address] * TSH (09/23/2016 4:51 PM EDT) Thyroid Stimulating Hormone 1.87 0.27 - 4.20 mlU/ML [facility] Blood specimen (specimen) 09/23/2016 4:51 PM EDT 09/23/2016 4:54 PM EDT Narrative Resulting Agency Comment Spec In Lab Puja Tesfaye MD CHEMISTRY ORDERABLES Performing Organization Address City/[facility]/ZIP Co de Phone Number [facility] [place] [address] documented in this encounter Visit Diagnoses Diagnosis Healthcare maintenance Routine general medical examination at a health care facility Arthralgia of left elbow Cough documented in this encounter Care Teams Dba Developer Relationship Specialty Start Date End Date Puja Tesfaye MD [facility] [place] [address] PCP - General 05/06/14 01/22/18 documented as of this encounter
--- OUTSIDE RECORDS SUMMARY | 2024-02-12 14:18 | XMS_ITS | Encounter Summary ---
Author Organization [facility] [place] [address] Care Team Providers Care Screen And Cyclone Repairer Name Role Phone Puja Tesfaye MD Primary Care Provider Reason for Visit * Reason Comments Annual Exam Encounter Details Date Type Department Care Team (Late st Contact Info) Description 09/16/2015 8:20 AM EDT Office Visit Internal Medicine at [address] [address] Puja Tesfaye MD [facility] [place] [address] Healthcare maintenance Social History Tobacco Use Types [...] Sign Reading Time Taken Comments Blood Pressure 137/75 09/16/2015 8:11 AM EDT Pulse 85 09/16/2015 8:11 AM EDT Temperature - - Respiratory Rate - - Oxygen Saturation 99% 09/16/2015 8:11 AM EDT Inhaled Oxygen Concentration - - Weight 81.8 kg (180 lb 6.4 oz) 09/16/2015 8:11 A M EDT Height 183.5 cm (6' 0.25) 09/16/2015 8:11 AM ED T Body Mass Index 24.3 09/16/2015 8:11 AM EDT documented in this encounter Progress Notes * Puja Tesfaye MD - 09/16/2015 9:00 AM EDT Chief Complaint Patient presents with ??? Annual Exam HPI: 35 y.o. patient with above concerns. Doing well. Questions about ADHD: life-long difficulty focusing, interrupting, but overall no problems in school. Had 2 GI syndromes recently; one same sx as family, another one that lasted 24 hrs and now resolvedentirely HPI is reflected in the problem list, which is reviewed and updated as follows: Patient Active Problem List Diagnosis ??? Healthcare maintenance ??? Hepatitis, autoimmune Diagnosed in 2001 based on LFTs elevated ??? Ulcerative colitis Diagnosed in 1996; On AZT and mesalamine No significant flare-ups since 2000 Reviewed and updated past medical history, past surgical history, family history and social historyin e-DH. Allergies Allergen Reactions ??? Hymenoptera Allergenic Extract Angioedema Generalized swelling in chest and neck. Never any wheese, sob or throat symtpoms. ??? Mefloquine Rash Rash occurred while taking sulfa medication and Mefloquine. Unaware of which gave him a reaction. ??? Sulfa (Sulfonamide Antibiotics) Rash Current Outpatient Prescriptions on File Prior to Visit Medication Sig Dispense Refill ??? azaTHIOprine 100 mg Tablet Take 1 tablet by mouth daily. 90 tablet 3 ??? folic acid (FOLVITE) 1 mg Tablet TAKE 1 TABLET DAILY 90 tablet 1 ??? APRISO 0.375 gram Capsule, Sust. Release 24 hr TAKE 4 CAPSULES DAILY 360 capsule 3 No current facility-administered medications on file prior to visit. myD-H Primary Care 09/16/2015 PROMIS 10-Health in general Good PROMIS 10-Quality of life Very Good PROMIS 10-Physical health Good PROMIS 10-Mental health Very Good PROMIS 10-Satisfaction with social activities Good PROMIS 10-Ability to carry out social activities Very Good PROMIS 10-Ability to carry out physical activities Completely PROMIS 10-Bothered by emotional problems Never PROMIS 10-Rate of fatigue Mild PROMIS 10-Rate of pain 2 PROMIS 10- Physical Health Score 50.8 PROMIS 10- Mental Health Score 53.3 REVIEW OF SYSTEMS 09/16/2015 Constitutional None of the above Ear / nose / throat / mouth None of the above Eyes None of the above Respiratory None of the above Cardiovascular None of the above Gastrointestinal Nausea, vomiting, Heartburn, indigestion, Diarrhea, Abdominal pain Skin, hair None of the above Musculoskeletal None of the above Neurological None of the above Hematologic / Lymphatic None of the above Genitourinary Dribbling No flowsheet data found. No flowsheet data found. PHQ-9 QUESTIONNAIRE (AMB) 09/16/2015 PHQ - 9 Score (Clinic) - Little interest or pleasure (Clinic) - Little interest or pleasure (Patient) Not at all Down, depressed, hopeless (Clinic) - Down, depressed, hopeless (Patient) Not at all Review of Systems - General ROS: negative for - chills, fever or malaise Respiratory ROS: no cough, shortness of breath, or wheezing Cardiovascular ROS: no chest pain or dyspnea on exertion Gastrointestinal ROS: no abdominal pain, change in bowel habits, or black or bloody stools Genito-Urinary ROS: no dysuria Musculoskeletal ROS: negative Neurological ROS: no TIA or stroke symptoms All other systems are negative, except as outlined in the HPI. Physical Exam: Visit Vitals ??? BP 137/75 (BP Location (NBP): Left arm, Patient Position: Sitting, BP Cuff Sizes: Adult (25-34 cm)) ??? Pulse 85 ??? Ht 183.5 cm (6' 0.25) ??? Wt 81.8 kg (180 lb 6.4 oz) ??? SpO2 99% ??? BMI 24.3 kg/m2 The patient appears in NAD. Vital signs as documented. Eyes: Conjunctivae normal. Neck is without lymphadenopathy. Lungs are clear to auscultation without wheezes or rales Cardiac exam:Regular rate and rhythm. No murmurs, rubs or gallops. Abdominal exam reveals normal bowel sounds, soft to palpation, no hepatomegaly Extremities are non-edematous Dorsalis pedis pulses are normal bilaterally Skin with no discrete lesions of concern No results found for: CHLPL No results found for: HDL No results found for: LDLCHOL No results found for: TRIG No results found for: CHOLHDL No results found for: GLUCFASTTEGAN Had lipid panel through his work: excellent cholesterol Assesment and Plan: Health Maintenance Topic Date Due ??? HIV one time screen 1997 ??? Colonoscopy every 2 yrs 03/06/2016 ??? Lipid Screening 08/12/2020 ??? Tetanus vaccine 05/01/2022 ??? Influenza (Flu) vaccine Completed ??? Tdap adult Completed No problem-specific Assessment & Plan notes found for this encounter. Doing well. Discussed risk/benefits of stimulant tretament- likely not worth it unless interferenceis significant documented in this encounter Plan of Treatment Upcoming Encounters Date Type Department Care Team (Late st Contact Info) Description 02/13/2024 1:00 PM EDT Clinical Support Primary Care at [address] [phone] 03/12/2024 8:50 AM [place] [phone] Camilla Nava MD [facility] [place] [address] 03/20/2024 8:00 AM EST Office [place] [phone] Camilla Nava MD [facility] [place] [address] documented as of this encounter Visit Diagnoses Diagnosis Healthcare maintenance Routine general medical examination at a health care facility documented in this encounter Care Teams Screen And Cyclone Repairer Relationship Specialty Start Date End Date Puja Tesfaye MD [facility] [place] [address] PCP - General 05/06/14 01/22/18 documented as of this encounter
--- OUTSIDE RECORDS SUMMARY | 2024-02-12 14:18 | XMS_ITS | Encounter Summary ---
Author Organization [facility] [place] [address] Care Team Providers Care Human Resources Designate Name Role Phone Puja Tesfaye MD Primary Care Provider Encounter Details Date Type Department Care Team (Latest Contact Info) Description 05/30/2015 5:10 PM EST Laboratory Appointment Lab [address] [place] [address] Autoimmune hepatitis Social History Tobacco [...] PM EDT Clinical Support Primary Care at [address] [phone] 03/12/2024 8:50 AM [place] [address] Camilla Nava MD [facility] [place] [address] 03/20/2024 8:00 AM EST Office [place] [address] Camilla Nava MD [facility] [place] [address] documented as of this encounter Procedures Procedure Name Priority Date/Time Associated Diagnosis Comments HEPATIC FUNCTION PANEL Routine 05/30/2015 5:17 PM EST Autoimmune hepatitis documented in this encounter Results * (ABNORMAL) Hepatic Function Panel (05/30/2015 5:17 PM EST) Protein, Total 7.6 6.1 - 8.0 gm/dL CERNER MILLENNIUM Albumin 4.9 3.2 - 5.2 gm/dL CERNER MILLENNIUM Aspartate Aminotransferase 32 0 - 39 unit/L CERNER MILLENNIUM Alanine Aminotransferase 41 0 - 55 unit/L CERNER MILLENNIUM Alkaline Phosphatase 124(H) 40 - 120 unit/L CERNER MILLENNIUM Bilirubin, Total 0.5 0.2 - 1.3 mg/dL CERNER MILLENNIUM Bilirubin, Direct 0.1 0.0 - 0.3 mg/dL CERNER MILLENNIUM Blood specimen (specimen) 05/30/2015 5:17 PM EST 05/30/2015 5:24 PM EST Narrative Resulting Agency Comment Spec In Lab Camilla Nava MD CHEMISTRY ORDERABLES [facility] documented in this encounter Visit Diagnoses Diagnosis Autoimmune hepatitis documented in this encounter Care Teams Human Resources Designate Relationship Specialty Start Date End Date Puja Tesfaye MD [facility] [place] [address] [place] [address] PCP - General 05/06/14 01/22/18 documented as of this encounter
--- OUTSIDE RECORDS SUMMARY | 2024-02-12 14:18 | XMS_ITS | Encounter Summary ---
Author Organization [facility] [place] [address] Care Team Providers Care Bed Bug Exterminator Name Role Phone Puja Tesfaye MD Primary Care Provider Reason for Visit * Reason Comments Medication Refill Encounter Details Date Type Department Care Team (Late st Contact Info) Description 06/25/2015 Refill [place] [phone] Camilla Nava MD [facility] [place] [place] [address] Ulcerative colitis without complications, unspecified location Social [...] EDT Clinical Support Primary Care at [address] [phone] 03/12/2024 8:50 AM [place] [phone] Camilla Nava MD [facility] [place] [address] 03/20/2024 8:00 AM EST Office Visit [place] [address] Camilla Nava MD [facility] [place] [address] documented as of this encounter Visit Diagnoses Diagnosis Ulcerative colitis without complications, unspecified location documented in this encounter Care Teams Bed Bug Exterminator Relationship Specialty Start Date End Date Puja Tesfaye MD [facility] [place] [place] [address] PCP - General 05/06/14 01/22/18 documented as of this encounter
--- OUTSIDE RECORDS SUMMARY | 2024-02-12 14:18 | XMS_ITS | Encounter Summary ---
Author Organization [facility] [address] Care Team Providers Care Assistant Professor Of Biochemistry Name Role Phone Puja Tesfaye MD Primary Care Provider Encounter Details Date Type Department Care Team (Late st Contact Info) Description 09/10/2015 Refill Gastroenterology at [facility] [place] [address] Nan Toney, RN Ulcerative colitis without complications, unspecified location Social [...] encounter Miscellaneous Notes * Telephone Encounter - Camilla Nava MD - 09/11/2015 2:13 PM EDT Please ask patient to have standing labs done in September. Camilla * Telephone Encounter - Nan Toney, RN - 09/10/2015 9:48 AM EDT Pt calls: - he had to reschedule September 30 appt and is now coming in November, he is worried this is too late can you ask her. (he may need labs in September at the least.) - needs refill to mailorder pharmacy for azathioprine, is dose same? Will review with . documented in this encounter Plan of Treatment Upcoming Encounters Date Type Department Care Team (Late st Contact Info) Description 02/13/2024 1:00 PM EDT Clinical Support Primary Care at [address] [phone] 03/12/2024 8:50 AM [place] [phone] Camilla Nava MD [facility] [place] [address] 03/20/2024 8:00 AM EST Office [place] [phone] Camilla Nava MD [facility] [place] [address] documented as of this encounter Visit Diagnoses Diagnosis Ulcerative colitis without complications, unspecified location documented in this encounter Care Teams Assistant Professor Of Biochemistry Relationship Specialty Start Date End Date Puja Tesfaye MD [facility] [address] [place] [address] PCP - General 05/06/14 01/22/18 documented as of this encounter
--- OUTSIDE RECORDS SUMMARY | 2024-02-12 14:18 | XMS_ITS | Encounter Summary ---
Author Organization [facility] [place] [address] Care Team Providers Care Marble Carver Name Role Phone Puja Tesfaye MD Primary Care Provider Encounter Details Date Type Department Care Team (Late st Contact Info) Description 08/30/2014 Telephone [place] [phone] Camilla Nava MD [facility] [place] [address] Social History Tobacco Use Types Packs/Day Years [...] Telephone Encounter - Camilla Nava MD - 08/30/2014 3:31 PM EDT Dear Mahamed, Labs continue to look good. I think you can stop the entocort. Continue azathioprine 100mg/day. Repeat labs in 2 weeks. Sincerely, Camilla Nava MD Section of Gastroenterology & Hepatology [address] [place] [phone] documented in this encounter Plan of Treatment Upcoming Encounters Date Type Department Care Team (Late st Contact Info) Description 02/13/2024 1:00 PM EDT Clinical Support Primary Care at [address] [phone] 03/12/2024 8:50 AM [place] [phone] Camilla Nava MD [facility] [place] [address] 03/20/2024 8:00 AM EST Office [place] [phone] Camilla Nava MD [facility] [place] [address] documented as of this encounter Visit Diagnoses Not on filedocumented in this encounter Care Teams Marble Carver Relationship Specialty Start Date End Date Puja Tesfaye MD [facility] [address] [address] PCP - General 05/06/14 01/22/18 documented as of this encounter
--- OUTSIDE RECORDS SUMMARY | 2024-02-12 14:18 | XMS_ITS | Encounter Summary ---
Author Organization [facility] [place] [address] Care Team Providers Care Dispatch Clerk Name Role Phone uPja Tesfaye MD Primary Care Provider Encounter Details Date Type Department Care Team (Latest Contact Info) Description 04/21/2015 4:05 PM EST Laboratory Appointment Lab [address] [place] [address] Autoimmune hepatitis Social History Tobacco [...] EDT Clinical Support Primary Care at [address] [phone] 03/12/2024 8:50 AM [place] [address] Camilla Nava MD [facility] [place] [address] 03/20/2024 8:00 AM EST Office [place] [address] Camilla Nava MD [facility] [place] [address] documented as of this encounter Procedures Procedure Name Priority Date/Time Associated Diagnosis Comments HEMOGRAM Routine 04/21/2015 4:14 PM EST Autoimmune hepatitis DIFFERENTIAL, AUTOMATED Routine 04/21/2015 4:14 PM EST Autoimmune hepatitis CBC (WITH DIFF) Routine 04/21/2015 4:14 PM EST Autoimmune hepatitis COMPREHENSIVE METABOLIC PANEL Routine 04/21/2015 4:14 PM EST Autoimmune hepatitis documented in this encounter Results * Differential, Automated (04/21/2015 4:14 PM EST) Neutrophil % 71.7 % CERNER MILLENNIUM Neutrophil Absolute 5.25 1.50 - 6.30 x10(3)/mcL CERNER MILLENNIUM Lymph % 20.6 % CERNER MILLENNIUM Lymphocytes Abs 1.5 1.0 - 3.6 x10(3)/mcL CERNER MILLENNIUM Monocyte % 6.8 % CERNER MILLENNIUM Monocyte Abs 0.5 0.2 - 1.0 x10(3)/mcL CERNER MILLENNIUM Eos % 0.7 % CERNER MILLENNIUM Eosinophils Abs 0.0 0.0 - 0.5 x10(3)/mcL CERNER MILLENNIUM Basophil % 0.1 % CERNER MILLENNIUM Baso Absolute 0.0 0.0 - 0.2 x10(3)/mcL CERNER MILLENNIUM Immature Gran % 0.10 % CERN ER MILLENNIUM Comment: Immature granulocytes(IG's)percentage and absolute count will include metamyelocytes, myelocytes, and promyelocytes. Blood smears from CBCs yielding IG's will be scanned manually for concordance. If this scan disagrees with the automated IG or if promyelocytes are noted, a manual differential will be performed. Immature Gran Absolute 0.01 0.00 - 0.05 x10(3)/mcL CERNER MILLENNIUM Blood specimen (specimen) 04/21/2015 4:14 PM EST 04/21/2015 4:25 PM EST Narrative Resulting Agency Comment Spec In Lab Camilla Nava MD HEMATOLOGY ORDERABLE S Performing Organization Address [facility] Co de Phone Number CERJONAH MILLENNIUM * Hemogram (04/21/2015 4:14 PM EST) White Blood Cell 7.3 4.0 - 10.0 x10(3)/mcL CERNER MILLENNIUM Red Blood Cell 4.98 4.63 - 6.08 x10(6)/mcL CERNER MILLENNIUM Hemoglobin 15.8 13.7 - 17.5 gm/dL CERNER MILLENNIUM Hematocrit 45.2 40.0 - 51.0 % CERNER MILLENNIUM Mean Cell Volume 90.8 79.0 - 92.0 fL CERNER MILLENNIUM Mean Cell Hemoglobin 31.7 25.6 - 32.2 pg CERNER MILLENNIUM Mean Cell Hemoglobin Concentration 35.0 32.0 - 36.5 gm/dL CERNER MILLENNIUM Platelet 224 145 - 370 x10(3)/mcL CERNER MILLENNIUM RDW Standard Deviation 43.4 35.0 - 46.0 fL CERNER MILLENNIUM RDW coefficient of variation 13.2 10.9 - 14.4 % CERNER MILLENNIUM Mean Platelet Volume 10.7 9.0 - 12.0 fL CERNER MILLENNIUM Blood specimen (specimen) 04/21/2015 4:14 PM EST 04/21/2015 4:25 PM EST Narrative Resulting Agency Comment Spec In Lab Camilla Nava MD HEMATOLOGY ORDERABLE S Performing Organization Address City/[facility]/ZIP Co de Phone Number CERJONAH MILLENNIUM * (ABNORMAL) Comprehensive metabolic panel (non-fasting) (04/21/2015 4:14 PM EST) Glucose 91 65 - 199 mg/dL CERNER MILLENNIUM Comment:Diabetes: >=200 mg/d L plus symptoms Blood Urea Nitrogen 10 10 - 20 mg/dL CERNER MILLENNIUM Creatinine 0.76(L) 0.80 - 1.50 mg/dL CERNER MILLENNIUM Comment: Please note that the pediatric reference intervals supplied above were not validated at [facility]. Results from pediatric patients should be interpreted in conjunction to the patient's age, height and muscle mass. Sodium 141 135 - 145 mmol/L CERNER MILLENNIUM Potassium 3.7 3.5 - 5.0 mmol/L CERNER MILLENNIUM Comment: Please note: ??Patients with WBC >100,000 may have falsely elevated Potassium levels. ??For accurate Potassium quantification in these patients send serum separator tube (gold top) for subsequent determinations. ??Contact the Clinical Chemistry Laboratory if there are any questions. Chloride 101 98 - 107 mmol/L CERNER MILLENNIUM Carbon Dioxide 28 22 - 31 mmol/L CERNER MILLENNIUM Anion Gap 12 5 - 15 mmol/L CERNER MILLENNIUM Calcium 9.4 8.5 - 10.5 mg/dL CERNER MILLENNIUM Protein, Total 8.0 6.1 - 8.0 gm/dL CERNER MILLENNIUM Albumin 4.8 3.2 - 5.2 gm/dL CERNER MILLENNIUM Aspartate Aminotransferase 45(H) 0 - 39 unit/L CERNER MILLENNIUM Alanine Aminotransferase 72(H) 0 - 55 unit/L CERNER MILLENNIUM Alkaline Phosphatase 133(H) 40 - 120 unit/L CERNER MILLENNIUM Bilirubin, Total 0.4 0.2 - 1.3 mg/dL CERNER MILLENNIUM Bilirubin, Direct 0.1 0.0 - 0.3 mg/dL CERNER MILLENNIUM Est Glomerular Filtration Rate >60 >=60 CERNER MILLENNIUM Comment: This estimated GFR (eGFR) value was [...] the following links into your internet browser. [email or web address] Blood specimen (specimen) 04/21/2015 4:14 PM EST 04/21/2015 4:25 PM EST Narrative Resulting Agency Comment Spec In Lab Camilla Nava MD CHEMISTRY ORDERABLES Performing Organization Address City/State/[facility] Co [place] Phone Number [facility] documented in this encounter Visit Diagnoses Diagnosis Autoimmune hepatitis documented in this encounter Care Teams Dispatch Clerk Relationship Specialty Start Date End Date Puja Tesfaye MD [facility] [address] [place] [address] PCP - General 05/06/14 01/22/18 documented as of this encounter
--- OUTSIDE RECORDS SUMMARY | 2024-02-12 14:18 | XMS_ITS | Encounter Summary ---
Author Organization [facility] Address [facility] [place] [address] Care Team Providers Care Parachute Panel Joiner Name Role Phone Puja Tesfaye MD Primary Care Provider [phone] Encounter Details Date Type Department Care Team (Latest Contact Info) Description 10/15/2014 5:01 PM EDT - 10/15/2014 11:59 PM EDT Hospital Encounter Laboratory [place] [phone] Camilla Nava MD [facility] [address] Autoimmune hepatitis Discharge Disposition: Home Social History [...] End Date azaTHIOprine (IMURAN) 50 mg Tablet Take 2 tablets by mouth daily. 180 tablet 3 09/11/2014 08/18/2015 folic acid (FOLVITE) 1 mg TabletIndications:Ulce rative colitis, unspecified TAKE 1 TABLET DAILY 90 tablet 2 07/30/2014 02/28/2015 Mesalamine (APRISO) 0.375 gram Cp24 Take 4 capsules by mouth daily. 360 capsule 4 06/19/2013 02/10/2015 documented as of this encounter Plan of Treatment Upcoming Encounters Date Type Department Care Team (Late st Contact Info) Description 02/13/2024 1:00 PM EDT Clinical Support Primary Care at [address] [address] 03/12/2024 8:50 [place] [phone] Camilla Nava MD [facility] [place] [address] 03/20/2024 8:00 AM EST Office [place] [phone] Camilla Nava MD [facility] [place] [address] Scheduled Orders Name Type Priority Associated Diagnoses Orde r Schedule CBC (with Diff) Lab Routine Autoimmune hepatitis 1 Occurrences starting 10/15/2014 until 10/15/2014 documented as of this encounter Procedures Procedure Name Priority Date/Time Associated Diagnosis Comments HEMOGRAM Routine 10/15/2014 5:14 PM EDT Autoimmune hepatitis DIFFERENTIAL, AUTOMATED Routine 10/15/2014 5:14 PM EDT Autoimmune hepatitis TISSUE TRANSGLUTAMINASE, IGA Routine 10/15/2014 5:14 PM EDT Autoimmune hepatitis CBC (WITH DIFF) Routine 10/15/2014 5:14 PM EDT Autoimmune hepatitis TSH Routine 10/15/2014 5:14 PM EDT Autoimmune hepatitis IGA Routine 10/15/2014 5:14 PM EDT Autoimmune hepatitis HEPATIC FUNCTION PANEL Routine 10/15/2014 5:14 PM EDT Autoimmune hepatitis documented in this encounter Results * Differential, Automated (10/15/2014 5:14 PM EDT) Neutrophil % 71.0 % CERNER MILLENNIUM Neutrophil Absolute 4.78 1.50 - 6.30 x10(3)/mcL CERNER MILLENNIUM Lymph % 16.8 % CERNER MILLENNIUM Lymphocytes Abs 1.1 1.0 - 3.6 x10(3)/mcL CERNER MILLENNIUM Monocyte % 10.4 % CERNER MILLENNIUM Monocyte Abs 0.7 0.2 - 1.0 x10(3)/mcL CERNER MILLENNIUM Eos % 1.2 % CERNER MILLENNIUM Eosinophils Abs 0.1 0.0 - 0.5 x10(3)/mcL CERNER MILLENNIUM Basophil % 0.3 % CERNER MILLENNIUM Baso Absolute 0.0 0.0 - 0.2 x10(3)/mcL CERNER MILLENNIUM Immature Gran % 0.30 % CERN ER MILLENNIUM Comment: Immature granulocytes(IG's)percentage and absolute count will include metamyelocytes, myelocytes, and promyelocytes. Blood smears from CBCs yielding IG's will be scanned manually for concordance. If this scan disagrees with the automated IG or if promyelocytes are noted, a manual differential will be performed. Immature Gran Absolute 0.02 0.00 - 0.05 x10(3)/mcL CERNER MILLENNIUM Blood specimen (specimen) 10/15/2014 5:14 PM EDT 10/15/2014 5:39 PM EDT Narrative Resulting Agency Comment Spec In Lab Camilla Nava MD HEMATOLOGY ORDERABLE S CERNER MILLENNIUM * (ABNORMAL) Hemogram (10/15/2014 5:14 PM EDT) White Blood Cell 6.7 4.0 - 10.0 x10(3)/mc L CERNER MILLENNIUM Red Blood Cell 4.75 4.63 - 6.08 x10(6)/mc L CERNER MILLENNIUM Hemoglobin 15.4 13.7 - 17.5 gm/dL CERNER MILLENNIUM Hematocrit 42.4 40.0 - 51.0 % CERNER MILLENNIUM Mean Cell Volume 89.3 79.0 - 92.0 fL CERNER MILLENNIUM Mean Cell Hemoglobin 32.4(H) 25.6 - 32.2 pg CERNER MILLENNIUM Mean Cell Hemoglobin Concentration 36.3 32.0 - 36.5 gm/dL CERNER MILLENNIUM Platelet 211 145 - 370 x10(3)/mc L CERNER MILLENNIUM RDW Standard Deviation 43.9 35.0 - 46.0 fL CERNER MILLENNIUM RDW coefficient of variation 13.4 10.9 - 14.4 % CERNER MILLENNIUM Mean Platelet Volume 10.4 9.0 - 12.0 fL CERNER MILLENNIUM Blood specimen (specimen) 10/15/2014 5:14 PM EDT 10/15/2014 5:39 PM EDT Narrative Resulting Agency Comment Spec In Lab Camilla Nava MD HEMATOLOGY ORDERABLE S Performing Organization Address [facility] de Phone Number IRIS LEEENNIUM * Hepatic Function Panel (10/15/2014 5:14 PM EDT) Protein, Total 7.5 6.1 - 8.0 gm/dL CERNER MILLENNIUM Albumin 4.8 3.2 - 5.2 gm/dL CERNER MILLENNIUM Aspartate Aminotransferase 32 0 - 39 unit/L CERNER MILLENNIUM Alanine Aminotransferase 47 0 - 55 unit/L CERNER MILLENNIUM Alkaline Phosphatase 111 40 - 120 unit/L CERNER MILLENNIUM Bilirubin, Total 0.4 0.2 - 1.3 mg/dL CERNER MILLENNIUM Bilirubin, Direct 0.1 0.0 - 0.3 mg/dL CERNER MILLENNIUM Blood specimen (specimen) 10/15/2014 5:14 PM EDT 10/15/2014 5:24 PM EDT Narrative Resulting Agency Comment Spec In Lab Camilla Nava MD CHEMISTRY ORDERABLES Performing Organization Address [facility] de Phone Number IRIS HOYTIUM * IgA (10/15/2014 5:14 PM EDT) IgA 157 70 - 400 mg/dL CERNER MILLENNIUM Blood specimen (specimen) 10/15/2014 5:14 PM EDT 10/15/2014 5:24 PM EDT Narrative Resulting Agency Comment Spec In Lab Camilla Nava MD CHEMISTRY ORDERABLES Performing Organization Address [facility] Co de Phone Number IRIS HERNANDEZ * Tissue transglutaminase, IgA (10/15/2014 5:14 PM EDT) TTG IgA Ab 0.3 0.1 - 10.0 u/ml CERNER MILLENNIUM Comment: New methodology as of 08-27-2014 Negative = <7 U/mL Equivocal = 7-10 U/mL Positive = >10 U/mL Blood specimen (specimen) 10/15/2014 5:14 PM EDT 10/16/2014 8:03 AM EDT Narrative Resulting Agency Comment Spec In Lab Camilla Nava MD IMMUNOLOGY ORDERABLE S Performing Organization Address [facility] de Phone Number IRIS HOYTIUM * TSH (10/15/2014 5:14 PM EDT) Thyroid Stimulating Hormone 2.23 0.27 - 4.20 mcIU/mL CERNER MILLENNIUM Blood specimen (specimen) 10/15/2014 5:14 PM EDT 10/15/2014 5:24 PM EDT Narrative Resulting Agency Comment Spec In Lab Camilla Nava MD CHEMISTRY ORDERABLES Performing Organization Address [facility] Co de Phone Number IRIS HERNANDEZ documented in this encounter Visit Diagnoses Diagnosis Autoimmune hepatitis documented in this encounter Care Teams Parachute Panel Joiner Relationship Specialty Start Date End Date Puja Tesfaye MD [facility] [address] [place] [address] PCP - General 05/06/14 01/22/18 documented as of this encounter
--- OUTSIDE RECORDS SUMMARY | 2024-02-12 14:18 | XMS_ITS | Encounter Summary ---
Author Organization [facility] Address [facility] [place] [address] Care Team Providers Care Wink Cutter Operator Name Role Phone Puja Tesfaye MD Primary Care Provider [phone] Encounter Details Date Type Department Care Team (Latest Contact Info) Description 09/13/2014 4:28 PM EDT - 09/13/2014 11:59 PM EDT Hospital Encounter Laboratory [place] [phone] Camilla Nava MD [facility] GASTROENTEROLOGY [place] [phone] Autoimmune hepatitis Discharge Disposition: Home Social History [...] PM EDT Clinical Support Primary Care at [address] [phone] 03/12/2024 8:50 [place] [phone] Camilla Nava MD [facility] GASTROENTEROLOGY [place], [place] [phone] 03/20/2024 8:00 AM EST Office [place] [phone] Camilla Nava MD [facility] [place] [address] documented as of this encounter Procedures Procedure Name Priority Date/Time Associated Diagnosis Comments HEMOGRAM Routine 09/13/2014 4:36 PM EDT Autoimmune hepatitis DIFFERENTIAL, AUTOMATED Routine 09/13/2014 4:36 PM EDT Autoimmune hepatitis CBC (WITH DIFF) Routine 09/13/2014 4:36 PM EDT Autoimmune hepatitis HEPATIC FUNCTION PANEL Routine 09/13/2014 4:36 PM EDT Autoimmune hepatitis documented in this encounter Results * Differential, Automated (09/13/2014 4:36 PM EDT) Neutrophil % 73.9 % CERNER MILLENNIUM Neutrophil Absolute 6.24 1.50 - 6.30 x10(3)/mcL CERNER MILLENNIUM Lymph % 17.2 % CERNER MILLENNIUM Lymphocytes Abs 1.4 1.0 - 3.6 x10(3)/mcL CERNER MILLENNIUM Monocyte % 7.9 % CERNER MILLENNIUM Monocyte Abs 0.7 0.2 - 1.0 x10(3)/mcL CERNER MILLENNIUM Eos % 0.7 % CERNER MILLENNIUM Eosinophils Abs 0.1 0.0 - 0.5 x10(3)/mcL CERNER MILLENNIUM Basophil % 0.2 % CERNER MILLENNIUM Baso Absolute 0.0 0.0 [...] 0.05 x10(3)/mcL CERNER MILLENNIUM Blood specimen (specimen) 09/13/2014 4:36 PM EDT 09/13/2014 4:41 PM EDT Narrative Resulting Agency Comment Spec In Lab Camilla Nava MD HEMATOLOGY ORDERABLE S CERNER MILLENNIUM * (ABNORMAL) Hemogram (09/13/2014 4:36 PM EDT) White Blood Cell 8.4 4.0 - 10.0 x10(3)/mc L CERNER MILLENNIUM Red Blood Cell 4.88 4.63 - 6.08 x10(6)/mc L CERNER MILLENNIUM Hemoglobin 15.9 13.7 - 17.5 gm/dL CERNER MILLENNIUM Hematocrit 44.5 40.0 - 51.0 % CERNER MILLENNIUM Mean Cell Volume 91.2 79.0 - 92.0 fL CERNER MILLENNIUM Mean Cell Hemoglobin 32.6(H) 25.6 - 32.2 pg CERNER MILLENNIUM Mean Cell Hemoglobin Concentration 35.7 32.0 - 36.5 gm/dL CERNER MILLENNIUM Platelet 225 145 - 370 x10(3)/mc L CERNER MILLENNIUM RDW Standard Deviation 43.3 35.0 - 46.0 fL CERNER MILLENNIUM RDW coefficient of variation 13.1 10.9 - 14.4 % CERNER MILLENNIUM Mean Platelet Volume 10.5 9.0 - 12.0 fL CERNER MILLENNIUM Blood specimen (specimen) 09/13/2014 4:36 PM EDT 09/13/2014 4:41 PM EDT Narrative Resulting Agency Comment Spec In Lab Camilla Nava MD HEMATOLOGY ORDERABLE S Performing Organization Address [facility] Co de Phone Number CERNER MILLENNIUM * Hepatic Function Panel (09/13/2014 4:36 PM EDT) Protein, Total 8.0 6.1 - 8.0 gm/dL CERNER MILLENNIUM Albumin 4.7 3.2 - 5.2 gm/dL CERNER MILLENNIUM Aspartate Aminotransferase 30 0 - 39 unit/L CERNER MILLENNIUM Alanine Aminotransferase 41 0 - 55 unit/L CERNER MILLENNIUM Alkaline Phosphatase 105 40 - 120 unit/L CERNER MILLENNIUM Bilirubin, Total 0.6 0.2 - 1.3 mg/dL CERNER MILLENNIUM Bilirubin, Direct 0.1 0.0 - 0.3 mg/dL CERNER MILLENNIUM Blood specimen (specimen) 09/13/2014 4:36 PM EDT 09/13/2014 4:41 PM EDT Narrative Resulting Agency Comment Spec In Lab Camilla Nava MD CHEMISTRY ORDERABLES Performing Organization Address [facility] Co de Phone Number CERJONAH LEEENNIUM documented in this encounter Visit Diagnoses Diagnosis Autoimmune hepatitis documented in this encounter Care Teams Wink Cutter Operator Relationship Specialty Start Date End Date Puja Tesfaye MD [facility] [address] [place] [address] PCP - General 05/06/14 01/22/18 documented as of this encounter
--- OUTSIDE RECORDS SUMMARY | 2024-02-12 14:18 | XMS_ITS | Encounter Summary ---
Author Organization [facility] Address [facility] [place] [address] Care Team Providers Care Welder Plastic Name Role Phone Puja Tesfaye MD Primary Care Provider Encounter Details Date Type Department Care Team (Latest Contact Info) Description 08/26/2014 4:54 PM EDT - 08/26/2014 11:59 PM EDT Hospital Encounter Laboratory [place] [phone] [facility] GASTROENTEROLOGY [place] [phone] Autoimmune hepatitis Discharge Disposition: Home Social History [...] TABLET DAILY 90 tablet 2 07/30/2014 02/28/2015 budesonide (ENTOCORT EC) 3 mg Capsule, Delayed & Ext.Release Take 3 capsules by mouth every morning. 90 capsule 3 04/25/2014 09/11/2014 azaTHIOprine (IMURAN) 50 mg Tablet Take 2 tablets by mouth daily for 90 days. 180 tablet 3 04/25/2014 09/11/2014 Mesalamine (APRISO) 0.375 gram Cp24 Take 4 capsules by mouth daily. 360 capsule 4 06/19/2013 02/10/2015 documented as of this encounter Plan of Treatment Upcoming Encounters Date Type Department Care Team (Late st Contact Info) Description 02/13/2024 1:00 PM EDT Clinical Support Primary Care at [address] [address] 03/12/2024 8:50 AM [place] [address] [facility] [place] [address] 03/20/2024 8:00 AM EST Office Visit [place] [phone] [facility] [place] [address] Scheduled Orders Name Type Priority Associated Diagnoses Orde r Schedule Hepatic Function Panel Lab Routine Autoimmune hepatitis 1 Occurrences starting 08/26/2014 until 08/26/2014 CBC (with Diff) Lab Routine Autoimmune hepatitis 1 Occurrences starting 08/26/2014 until 08/26/2014 documented as of this encounter Procedures Procedure Name Priority Date/Time Associated Diagnosis Comments HEMOGRAM Routine 08/26/2014 5:04 PM EDT Autoimmune hepatitis DIFFERENTIAL, AUTOMATED Routine 08/26/2014 5:04 PM EDT Autoimmune hepatitis CBC (WITH DIFF) Routine 08/26/2014 5:04 PM EDT Autoimmune hepatitis HEPATIC FUNCTION PANEL Routine 08/26/2014 5:04 PM EDT Autoimmune hepatitis documented in this encounter Results * Differential, Automated (08/26/2014 5:04 PM EDT) [facility]rophil % 69.5 % [facility] Neutrophil Absolute 4.98 1.50 - 6.30 x10(3)/mcL CERNER MILLENNIUM Lymph % 24.5 % CERNER MILLENNIUM Lymphocytes Abs 1.8 1.0 - 3.6 x10(3)/mcL CERNER MILLENNIUM Monocyte % 4.7 % CERNER MILLENNIUM Monocyte Abs 0.3 0.2 - 1.0 x10(3)/mcL CERNER MILLENNIUM Eos [...] 0.05 x10(3)/mcL CERNER MILLENNIUM Blood specimen (specimen) 08/26/2014 5:04 PM EDT 08/26/2014 5:13 PM EDT Narrative Resulting Agency Comment Spec In Lab Camilla Nava MD HEMATOLOGY ORDERABLE S CERNER MILLENNIUM * (ABNORMAL) Hemogram (08/26/2014 5:04 PM EDT) White Blood Cell 7.2 4.0 - 10.0 x10(3)/mc L CERNER MILLENNIUM Red Blood Cell 4.78 4.63 - 6.08 x10(6)/mc L CERNER MILLENNIUM Hemoglobin 15.6 13.7 - 17.5 gm/dL CERNER MILLENNIUM Hematocrit 43.1 40.0 - 51.0 % CERNER MILLENNIUM Mean Cell Volume 90.2 79.0 - 92.0 fL CERNER MILLENNIUM Mean Cell Hemoglobin 32.6(H) 25.6 - 32.2 pg CERNER MILLENNIUM Mean Cell Hemoglobin Concentration 36.2 32.0 - 36.5 gm/dL CERNER MILLENNIUM Platelet 283 145 - 370 x10(3)/mc L CERNER MILLENNIUM RDW Standard Deviation 42.8 35.0 - 46.0 fL CERNER MILLENNIUM RDW coefficient of variation 13.1 10.9 - 14.4 % CERNER MILLENNIUM Mean Platelet Volume 10.2 9.0 - 12.0 fL CERNER MILLENNIUM Blood specimen (specimen) 08/26/2014 5:04 PM EDT 08/26/2014 5:13 PM EDT Narrative Resulting Agency Comment Spec In Lab Camilla Nava MD HEMATOLOGY ORDERABLE S CERNER MILLENNIUM * Hepatic Function Panel (08/26/2014 5:04 PM EDT) Protein, Total 7.8 6.1 - 8.0 gm/dL CERNER MILLENNIUM Albumin 4.7 3.2 - 5.2 gm/dL CERNER MILLENNIUM Aspartate Aminotransferase 27 0 - 39 unit/L CERNER MILLENNIUM Alanine Aminotransferase 36 0 - 55 unit/L CERNER MILLENNIUM Alkaline Phosphatase 106 40 - 120 unit/L CERNER MILLENNIUM Bilirubin, Total 0.5 0.2 - 1.3 mg/dL CERNER MILLENNIUM Bilirubin, Direct 0.1 0.0 - 0.3 mg/dL CERNER MILLENNIUM Blood specimen (specimen) 08/26/2014 5:04 PM EDT 08/26/2014 5:13 PM EDT Narrative Resulting Agency Comment Spec In Lab Camilla Nava MD CHEMISTRY ORDERABLES IRIS HOYTIUM documented in this encounter Visit Diagnoses Diagnosis Autoimmune hepatitis documented in this encounter Care Teams Welder Plastic Relationship Specialty Start Date End Date Puja Tesfaye MD [facility] [address] [place] [address] [place] [address] PCP - General 05/06/14 01/22/18 documented as of this encounter
--- OUTSIDE RECORDS SUMMARY | 2024-02-12 14:18 | XMS_ITS | Encounter Summary ---
Author Organization [facility] [place] [address] Care Team Providers Care Alarm Technician Name Role Phone Puja Tesfaye MD Primary Care Provider Encounter Details Date Type Department Care Team (Latest Contact Info) Description 07/28/2015 5:20 PM EDT Laboratory Appointment Lab [address] [place] [address] Autoimmune hepatitis Social History Tobacco [...] PM EDT Clinical Support Primary Care at [address] [phone] 03/12/2024 8:50 AM [place] [address] Camilla Nava MD [facility] [place] [address] 03/20/2024 8:00 AM EST Office [place] [address] Camilla Nava MD [facility] [place] [address] documented as of this encounter Procedures Procedure Name Priority Date/Time Associated Diagnosis Comments HEPATIC FUNCTION PANEL Routine 07/28/2015 5:30 PM EDT Autoimmune hepatitis documented in this encounter Results * (ABNORMAL) Hepatic Function Panel (07/28/2015 5:30 PM EDT) Protein, Total 7.4 6.1 - 8.0 gm/dL [facility] Albumin 4.4 3.2 - 5.2 gm/dL [facility] Aspartate Aminotransferase 42(H) 0 - 39 unit/L [facility] Alanine Aminotransferase 43 0 - 55 unit/L [facility] Alkaline Phosphatase 113 40 - 120 unit/L [facility] Bilirubin, Total 0.5 0.2 - 1.3 mg/dL [facility] Bilirubin, Direct 0.1 0.0 - 0.3 mg/dL [facility] Blood specimen (specimen) 07/28/2015 5:30 PM EDT 07/28/2015 5:33 PM EDT Narrative Resulting Agency Comment Spec In Lab Camilla Nava MD CHEMISTRY ORDERABLES [facility] [place] [address] documented in this encounter Visit Diagnoses Diagnosis Autoimmune hepatitis documented in this encounter Care Teams Alarm Technician Relationship Specialty Start Date End Date Puja Tesfaye MD [facility] [place] [address] PCP - General 05/06/14 01/22/18 documented as of this encounter
--- OUTSIDE RECORDS SUMMARY | 2024-02-12 14:18 | XMS_ITS | Encounter Summary ---
Author Organization [facility] [place] [address] Care Team Providers Care Neon Sign Mechanic Name Role Phone Puja Tesfaye MD Primary Care Provider Reason for Visit * Reason Onset Date Comments Medication Refill 02/10/2015 Encounter Details Date Type Department Care Team (Late st Contact Info) Description 02/10/2015 Refill [place] [phone] Camilla Nava MD [facility] [place] [address] Autoimmune hepatitis Social History Tobacco Use Types [...] EDT Clinical Support Primary Care at [address] [address] 03/12/2024 8:50 AM [place] [phone] Camilla Nava MD [facility] [place] [address] 03/20/2024 8:00 AM EST Office Visit [place] [address] Camilla Nava MD [facility] [place] [address] documented as of this encounter Visit Diagnoses Diagnosis Autoimmune hepatitis documented in this encounter Care Teams Neon Sign Mechanic Relationship Specialty Start Date End Date Puja Tesfaye MD [facility] [place] [address] [place] [address] PCP - General 05/06/14 01/22/18 documented as of this encounter
--- OUTSIDE RECORDS SUMMARY | 2024-02-12 14:18 | XMS_ITS | Encounter Summary ---
Author Organization [facility] Address [facility] [place] [address] Care Team Providers Care Senior Stock Plan Administrator Name Role Phone Puja Tesfaye MD Primary Care Provider Encounter Details Date Type Department Care Team (Latest Contact Info) Description 01/16/2015 4:29 PM EDT - 01/16/2015 11:59 PM EDT Hospital Encounter Laboratory [place] [phone] Camilla Nava MD [facility] [address] Autoimmune hepatitis; Hepatitis, autoimmune Discharge Disposition: Home Social History Tobacco Use [...] EDT Clinical Support Primary Care at [address] [phone] 03/12/2024 8:50 AM [place] [phone] Camilla Nava MD [facility] [place] [address] 03/20/2024 8:00 AM EST Office [place] [phone] Camilla Nava MD [facility] [place] [address] Scheduled Orders Name Type Priority Associated Diagnoses Orde r Schedule CBC (with Diff) Lab Routine Autoimmune hepatitis 1 Occurrences starting 01/16/2015 until 01/16/2015 documented as of this encounter Procedures Procedure Name Priority Date/Time Associated Diagnosis Comments HEPATIC FUNCTION PANEL Routine 01/16/2015 4:43 PM EDT Hepatitis, autoimmune HEMOGRAM Routine 01/16/2015 4:36 PM EDT Autoimmune hepatitis DIFFERENTIAL, AUTOMATED Routine 01/16/2015 4:36 PM EDT Autoimmune hepatitis CBC (WITH DIFF) Routine 01/16/2015 4:36 PM EDT Autoimmune hepatitis documented in this encounter Results * (ABNORMAL) Hepatic Function Panel (01/16/2015 4:43 PM EDT) Protein, Total 8.1(H) 6.1 - 8.0 gm/dL CERNER MILLENNIUM Albumin 4.9 3.2 - 5.2 gm/dL CERNER MILLENNIUM Aspartate Aminotransferase 29 0 - 39 unit/L CERNER MILLENNIUM Alanine Aminotransferase 37 0 - 55 unit/L CERNER MILLENNIUM Alkaline Phosphatase 100 40 - 120 unit/L CERNER MILLENNIUM Bilirubin, Total 0.4 0.2 - 1.3 mg/dL CERNER MILLENNIUM Bilirubin, Direct 0.1 0.0 - 0.3 mg/dL CERNER MILLENNIUM Blood specimen (specimen) 01/16/2015 4:43 PM EDT 01/16/2015 4:49 PM EDT Narrative Resulting Agency Comment Spec In Lab Camilla Nava MD CHEMISTRY ORDERABLES CERNER MILLENNIUM * Differential, Automated (01/16/2015 4:36 PM EDT) Neutrophil % 64.6 % CERNER MILLENNIUM Neutrophil Absolute 4.18 1.50 - 6.30 x10(3)/mcL CERNER MILLENNIUM Lymph % 27.4 % CERNER MILLENNIUM Lymphocytes Abs 1.8 1.0 - 3.6 x10(3)/mcL CERNER MILLENNIUM Monocyte % 6.7 % CERNER MILLENNIUM Monocyte Abs 0.4 0.2 - 1.0 x10(3)/mcL CERNER MILLENNIUM Eos % 0.9 % CERNER MILLENNIUM Eosinophils Abs 0.1 0.0 - 0.5 x10(3)/mcL CERNER MILLENNIUM Basophil % 0.2 % CERNER MILLENNIUM Baso Absolute 0.0 0.0 - 0.2 x10(3)/mcL CERNER MILLENNIUM Immature Gran % 0.20 % CERN ER MILLENNIUM Comment: Immature granulocytes(IG's)percentage and absolute count will include metamyelocytes, myelocytes, and promyelocytes. Blood smears from CBCs yielding IG's will be scanned manually for concordance. If this scan disagrees with the automated IG or if promyelocytes are noted, a manual differential will be performed. Immature Gran Absolute 0.01 0.00 - 0.05 x10(3)/mcL CERNER MILLENNIUM Blood specimen (specimen) 01/16/2015 4:36 PM EDT 01/16/2015 4:55 PM EDT Narrative Resulting Agency Comment Spec In Lab Camilla Nava MD HEMATOLOGY ORDERABLE S CERJONAH MILLENNIUM * (ABNORMAL) Hemogram (01/16/2015 4:36 PM EDT) White Blood Cell 6.5 4.0 - 10.0 x10(3)/mc L CERNER MILLENNIUM Red Blood Cell 4.79 4.63 - 6.08 x10(6)/mc L CERNER MILLENNIUM Hemoglobin 15.6 13.7 - 17.5 gm/dL CERNER MILLENNIUM Hematocrit 43.0 40.0 - 51.0 % CERNER MILLENNIUM Mean Cell Volume 89.8 79.0 - 92.0 fL CERNER MILLENNIUM Mean Cell Hemoglobin 32.6(H) 25.6 - 32.2 pg CERNER MILLENNIUM Mean Cell Hemoglobin Concentration 36.3 32.0 - 36.5 gm/dL CERNER MILLENNIUM Platelet 234 145 - 370 x10(3)/mc L CERNER MILLENNIUM RDW Standard Deviation 43.0 35.0 - 46.0 fL CERNER MILLENNIUM RDW coefficient of variation 13.1 10.9 - 14.4 % CERNER MILLENNIUM Mean Platelet Volume 10.7 9.0 - 12.0 fL CERNER MILLENNIUM Blood specimen (specimen) 01/16/2015 4:36 PM EDT 01/16/2015 4:55 PM EDT Narrative Resulting Agency Comment Spec In Lab Camilla Nava MD HEMATOLOGY ORDERABLE S IRIS HOYTIUM documented in this encounter Visit Diagnoses Diagnosis Autoimmune hepatitis Hepatitis, autoimmune Autoimmune hepatitis documented in this encounter Care Teams Senior Stock Plan Administrator Relationship Specialty Start Date End Date Puja Tesfaye MD [facility] [address] [place] [address] PCP - General 05/06/14 01/22/18 documented as of this encounter
--- OUTSIDE RECORDS SUMMARY | 2024-02-12 14:18 | XMS_ITS | Encounter Summary ---
Author Organization [facility] Address [facility] [place] [address] Care Team Providers Care Hat Cleaner Name Role Phone Puja Tesfaye MD Primary Care Provider Encounter Details Date Type Department Care Team (Latest Contact Info) Description 07/22/2014 11:47 AM EDT - 07/22/2014 11:59 PM EDT Hospital Encounter Laboratory [place] [phone] Camilla Nava MD [facility]STR[facility] [place] [phone] Autoimmune hepatitis Discharge Disposition: Home Social History [...] Sig Dispensed Refills Start Date End Date budesonide (ENTOCORT EC) 3 mg Capsule, Delayed & Ext.Release Take 3 capsules by mouth every morning. 90 capsule 3 04/25/2014 09/11/2014 azaTHIOprine (IMURAN) 50 mg Tablet Take 2 tablets by mouth daily for 90 days. 180 tablet 3 04/25/2014 09/11/2014 folic acid (FOLVITE) 1 mg tablet TAKE 1 TABLET BY MOUTH DAILY 90 tablet 3 09/07/2013 07/30/2014 Mesalamine (APRISO) 0.375 gram Cp24 Take 4 capsules by mouth daily. 360 capsule 4 06/19/2013 02/10/2015 documented as of this encounter Plan of Treatment Upcoming Encounters Date Type Department Care Team (Late st Contact Info) Description 02/13/2024 1:00 PM EDT Clinical Support Primary Care at [address] [phone] 03/12/2024 8:50 AM EST [place] [phone] Camilla Nava MD [facility] [place] [address] 03/20/2024 8:00 AM EST Office Visit [place] [address] Camilla Nava MD [facility] [place] [address] documented as of this encounter Procedures Procedure Name Priority Date/Time Associated Diagnosis Comments HEMOGRAM Routine 07/22/2014 11:58 AM EDT Autoimmune hepatitis DIFFERENTIAL, AUTOMATED Routine 07/22/2014 11:58 AM EDT Autoimmune hepatitis CBC (WITH DIFF) Routine 07/22/2014 11:58 AM EDT Autoimmune hepatitis HEPATIC FUNCTION PANEL Routine 07/22/2014 11:58 AM EDT Autoimmune hepatitis documented in this encounter Results * Differential, Automated (07/22/2014 11:58 AM EDT) Neutrophil % 67.8 % CERNER MILLENNIUM Neutrophil Absolute 4.13 1.50 - 6.30 x10(3)/mcL CERNER MILLENNIUM Lymph % 24.5 % CERNER MILLENNIUM Lymphocytes Abs 1.5 1.0 - 3.6 x10(3)/mcL CERNER MILLENNIUM Monocyte % 6.6 % CERNER MILLENNIUM Monocyte Abs 0.4 0.2 - 1.0 x10(3)/mcL CERNER MILLENNIUM Eos % 0.5 % CERNER MILLENNIUM Eosinophils Abs 0.0 0.0 [...] 0.05 x10(3)/mcL CERNER MILLENNIUM Blood specimen (specimen) 07/22/2014 11:58 AM EDT 07/22/2014 12:13 PM EDT Narrative Resulting Agency Comment Spec In Lab Camilla Nava MD HEMATOLOGY ORDERABLE S CERNER MILLENNIUM * (ABNORMAL) Hemogram (07/22/2014 11:58 AM EDT) White Blood Cell 6.1 4.0 - 10.0 x10(3)/mc L CERNER MILLENNIUM Red Blood Cell 5.10 4.63 - 6.08 x10(6)/mc L CERNER MILLENNIUM Hemoglobin 16.4 13.7 - 17.5 gm/dL CERNER MILLENNIUM Hematocrit 47.0 40.0 - 51.0 % CERNER MILLENNIUM Mean Cell Volume 92.2(H) 79.0 - 92.0 fL CERNER MILLENNIUM Mean Cell Hemoglobin 32.2 25.6 - 32.2 pg CERNER MILLENNIUM Mean Cell Hemoglobin Concentration 34.9 32.0 - 36.5 gm/dL CERNER MILLENNIUM Platelet 230 145 - 370 x10(3)/mc L CERNER MILLENNIUM RDW Standard Deviation 44.7 35.0 - 46.0 fL CERNER MILLENNIUM RDW coefficient of variation 13.4 10.9 - 14.4 % CERNER MILLENNIUM Mean Platelet Volume 10.7 9.0 - 12.0 fL CERNER MILLENNIUM Blood specimen (specimen) 07/22/2014 11:58 AM EDT 07/22/2014 12:13 PM EDT Narrative Resulting Agency Comment Spec In Lab Camilla Nava MD HEMATOLOGY ORDERABLE S Performing Organization Address City/[facility]/ZIP Co de Phone Number IRIS LEEENNIUM * Hepatic Function Panel (07/22/2014 11:58 AM EDT) Protein, Total 8.0 6.1 - 8.0 gm/dL CERNER MILLENNIUM Albumin 5.0 3.2 - 5.2 gm/dL CERNER MILLENNIUM Aspartate Aminotransferase 27 0 - 39 unit/L CERNER MILLENNIUM Alanine Aminotransferase 38 0 - 55 unit/L CERNER MILLENNIUM Alkaline Phosphatase 97 40 - 120 unit/L CERNER MILLENNIUM Bilirubin, Total 0.6 0.2 - 1.3 mg/dL CERNER MILLENNIUM Bilirubin, Direct 0.1 0.0 - 0.3 mg/dL CERNER MILLENNIUM Blood specimen (specimen) 07/22/2014 11:58 AM EDT 07/22/2014 12:13 PM EDT Narrative Resulting Agency Comment Spec In Lab Camilla Nava MD CHEMISTRY ORDERABLES Performing Organization Address City/[facility]/ZIP Co de Phone Number IRIS HERNANDEZ documented in this encounter Visit Diagnoses Diagnosis Autoimmune hepatitis documented in this encounter Care Teams Hat Cleaner Relationship Specialty Start Date End Date Puja Tesfaye MD [facility] [address] [place] [address] PCP - General 05/06/14 01/22/18 documented as of this encounter
--- OUTSIDE RECORDS SUMMARY | 2024-02-12 14:18 | XMS_ITS | Encounter Summary ---
Author Organization [facility] [place] [address] Care Team Providers Care Hand Binder Cutter Name Role Phone Puja Tesfaye MD Primary Care Provider Encounter Details Date Type Department Care Team (Late st Contact Info) Description 04/15/2015 Orders [place] [phone] Camilla Nava MD [facility] [place] [address] Autoimmune hepatitis Social History Tobacco Use Types [...] PM EDT Clinical Support Primary Care at [address] [phone] 03/12/2024 8:50 AM [place] [phone] Camilla Nava MD [facility] GASTROENTEROLOGY [place], [place] [phone] 03/20/2024 8:00 AM EST Office [place] [address] Camilla Nava MD [facility] [place] [address] documented as of this encounter Visit Diagnoses Diagnosis Autoimmune hepatitis documented in this encounter Care Teams Hand Binder Cutter Relationship Specialty Start Date End Date Puja Tesfaye MD [facility] [place] [address] [place] [address] PCP - General 05/06/14 01/22/18 documented as of this encounter
--- OUTSIDE RECORDS SUMMARY | 2024-02-12 14:18 | XMS_ITS | Encounter Summary ---
Author Organization [facility] [place] [address] Care Team Providers Care Farm Planner Name Role Phone Puja Tesfaye MD Primary Care Provider Reason for Visit * Reason Comments Medication Refill Encounter Details Date Type Department Care Team (Late st Contact Info) Description 08/17/2015 [place] [phone] Camilla Nava MD [facility] [place] [address] Ulcerative colitis without complications, unspecified location Social [...] EDT Clinical Support Primary Care at [address] [phone] 03/12/2024 8:50 [place] [phone] Camilla Nava MD [facility] [place] [address] 03/20/2024 8:00 AM EST Office [place] [address] Camilla Nava MD [facility] [place] [address] documented as of this encounter Visit Diagnoses Diagnosis Ulcerative colitis without complications, unspecified location documented in this encounter Care Teams Farm Planner Relationship Specialty Start Date End Date Puja Tesfaye MD [facility] [place] [address] [place] [address] PCP - General 05/06/14 01/22/18 documented as of this encounter
--- OUTSIDE RECORDS SUMMARY | 2024-02-12 14:18 | XMS_ITS | Encounter Summary ---
Author Organization [facility] [place] [address] Care Team Providers Care Chain Saw Mechanic Name Role Phone Puja Tesfaye MD Primary Care Provider [phone] Reason for Referral * Consultation (Routine) - Complete - Unable to Contact Patient Specialty Diagnoses / Procedures Referred By Contac t Referred To Contact Urology Diagnoses Healthcare maintenance Puja Tesfaye MD [facility] [place] [address] [facility] [place] [address] Referral ID Status Reason Start Date Expiration Date Visits Requested Visits Authorized [id number] Complete - Unable to Contact Patient Consult, Test & Treat 09/11/2014 09/11/2015 1 1 Reason for Visit * Reason Comments Establish Care Annual Exam Encounter Details Date Type Department Care Team (Late st Contact Info) Description 09/11/2014 1:25 PM EDT Office [place] [address] Puja Tesfaye MD [facility] [place] [address] Hepatitis, autoimmune; Ulcerative colitis, without complications; Need for prophylactic vaccination against Streptococcus pneumoniae (pneumococcus); Healthcare maintenance Discharge Disposition: Home Social History Tobacco Use [...] Sign Reading Time Taken Comments Blood Pressure 134/73 09/11/2014 1:35 PM EDT Pulse 73 09/11/2014 1:35 PM EDT Temperature 36.8 ??C (98.2 ??F) 09/11/2014 1:35 PM ED T Respiratory Rate - - Oxygen Saturation 99% 09/11/2014 1:35 PM EDT Inhaled Oxygen Concentration - - Weight 84.8 kg (187 lb) 09/11/2014 1:35 PM EDT Height 183.5 cm (6' 0.25) 09/11/2014 1:35 PM ED T Body Mass Index 25.19 09/11/2014 1:35 PM EDT documented in this encounter Progress Notes * Puja Tesfaye MD - 09/11/2014 1:40 PM EDT Chief Complaint Patient presents with ??? Establish Care ??? Annual Exam HPI: 34 y.o. patient with several concerns; he was diagnosed with ulcerative colitis at age 16 after having symptoms for about a year and he has been controlled with minimal flare-ups on AZT and mesalamine. He has the following questions: - whenever he develops a URI, after the initial symptoms resolve, he has persistent productive cough x 6-8 weeks; he reports that when he was younger he had an inflammation of the pleura one time - L knee buckled and shooting pain yesterday going upstairs x 4 - hand bumps intermittently, come and go - considers permanent contraception, such as vasectomy Patient Active Problem List Diagnosis ??? Hepatitis, autoimmune ??? Ulcerative colitis Reviewed and updated past medical history, past surgical history, [facility] Allergies Allergen Reactions ??? Sulfa (Sulfonamide Antibiotics) Rash Current Outpatient Prescriptions on File Prior to Visit Medication Sig Dispense Refill ??? folic acid (FOLVITE) 1 mg Tablet TAKE 1 TABLET DAILY 90 tablet 2 ??? Mesalamine (APRISO) 0.375 gram Cp24 Take 4 capsules by mouth daily. 360 capsule 4 ? ? [DISCONTINUED] budesonide (ENTOCORT EC) 3 mg Capsule, Delayed & Ext.Release Take 3 capsulesby mouth every morning. 90 capsule 3 No current facility-administered medications on file prior to visit. Review of Systems - General ROS: negative for - chills, fever or malaise Respiratory ROS: no cough, shortness of breath, or wheezing Cardiovascular ROS: no chest pain or dyspnea on exertion Gastrointestinal ROS: no abdominal pain Genito-Urinary ROS: no dysuria, trouble voiding, or hematuria Musculoskeletal ROS: left knee recent pain, none currently Neurological ROS: no TIA or stroke symptoms All other systems are negative Physical Exam: BP 134/73 Pulse 73 Temp(Src) 36.8 ??C (98.2 ??F) Ht 183.5 cm (6' 0.25) Wt 84.823 kg (187 lb) BMI 25.19 kg/m2 SpO2 99% The patient appeared well nourished and normally developed. Vital signs as documented. Eyes: EOMI; Neck is without lymphadenopathy. Lungs are clear to auscultation without wheezes or rales Cardiac exam:Regular rate and rhythm. No murmurs, rubs or gallops. Abdominal exam reveals normal bowel sounds, soft to palpation, Extremities are non-edematous; L knee with no effusion, no tenderness with palpation of the joint line Dorsalis pedis pulses are normal bilaterally Skin with no discrete lesions of concern; 1 mm skin-colored papule on left hand, could be a small wart he has fasting labs done for work and he will forward results of labs done in April 2014 Health Maintenance Topic Date Due ??? HIV one time screen 1997 ??? Influenza (Flu) vaccine (#1 of 1) 12/24/2014 ??? Colonoscopy every 2 yrs 03/06/2016 ??? Tetanus vaccine 05/01/2022 ??? Tdap adult Completed Assesment and Plan: Mahamed was seen today for establish care and annual exam. Diagnoses and associated orders for this visit: Hepatitis, autoimmune, and Ulcerative colitis, without complications - PNEUMOCOCCAL CONJUGATE VACCINE 13-VALENT Healthcare maintenance - Referral to Urology to discuss vasectomy He will return here for examination if he has persistent cough after URI L knee- return for symptoms, currently resolved documented in this encounter Plan of Treatment Upcoming Encounters Date Type Department Care Team (Late st Contact Info) Description 02/13/2024 1:00 PM EDT Clinical Support Primary Care at [address] [phone] 03/12/2024 8:50 [place] [phone] Camilla Nava MD [facility] [place] [address] 03/20/2024 8:00 AM EST Office [place] [phone] Camilla Nava MD [facility] [place] [address] Scheduled Referrals Name Type Priority Associated Diagnoses Orde r Schedule Referral to Urology Outpatient Referral Routine Healthcare maintenance Ordered: 09/11/2014 documented as of this encounter Visit Diagnoses Diagnosis Hepatitis, autoimmune Autoimmune hepatitis Ulcerative colitis, without complications Need for prophylactic vaccination against Streptococcus pneumoniae (pneumococcus) Need for prophylactic vaccination against streptococcus pneumoniae (pneumococcus) Healthcare maintenance Routine general medical examination at a health care facility documented in this encounter Care Teams Chain Saw Mechanic Relationship Specialty Start Date End Date Puja Tesfaye MD [facility] [address] [place] [address] PCP - General 05/06/14 01/22/18 documented as of this encounter
--- OUTSIDE RECORDS SUMMARY | 2024-02-12 14:18 | XMS_ITS | Encounter Summary ---
Author Organization [facility] [place] [address] Care Team Providers Care Product Development Technician Name Role Phone Puja Tesfaye MD Primary Care Provider [phone] Encounter Details Date Type Department Care Team (Late st Contact Info) Description 01/16/2015 Orders Only [place] [address] Nan Toney, RN Hepatitis, autoimmune Social History Tobacco Use Types [...] EDT Clinical Support Primary Care at [address] [phone] 03/12/2024 8:50 AM [place] [address] Camilla Nava MD [facility] [place] [address] 03/20/2024 8:00 AM EST Office Visit [place] [address] Camilla Nava MD [facility] [place] [address] documented as of this encounter Results * (ABNORMAL) Hepatic Function [...] Lab Camilla Nava MD CHEMISTRY ORDERABLES IRIS HERNANDEZ documented in this encounter Visit Diagnoses Diagnosis Hepatitis, autoimmune Autoimmune hepatitis documented in this encounter Care Teams Product Development Technician Relationship Specialty Start Date End Date Puja Tesfaye MD [facility] [address] [place] [address] [place] [address] PCP - General 05/06/14 01/22/18 documented as of this encounter
--- OUTSIDE RECORDS SUMMARY | 2024-02-12 14:18 | XMS_ITS | Encounter Summary ---
Author Organization [facility] Address [facility] [place] [address] Care Team Providers Care Traffic Operations Manager Name Role Phone Puja Tesfaye MD Primary Care Provider Encounter Details Date Type Department Care Team (Latest Contact Info) Description 07/04/2014 5:37 PM EDT - 07/04/2014 11:59 PM EDT Hospital Encounter Laboratory [place] [phone] Camilla Nava MD [facility] GASTROENTEROLOGY [place] [phone] Autoimmune hepatitis Discharge Disposition: Home Social History [...] 06/19/2013 02/10/2015 documented as of this encounter Progress Notes * Camilla Nava MD - 07/04/2014 6:49 PM EDTQuick Note: Dear Mahamed, Your labs look better- in the normal range, but the ALT really should be less than 30. For now I would leave the entocort at 6mg and Azathioprine at 100mg. Please let me know if you are having any side effects. Sincerely, Camilla Nava MD Section of Gastroenterology & Hepatology [address] [place] [address] documented in this encounter Plan of Treatment Upcoming Encounters Date Type Department Care Team (Late st Contact Info) Description 02/13/2024 1:00 PM EDT Clinical Support Primary Care at [address] [phone] 03/12/2024 8:50 AM EST Appointment MRI at [place] [phone] Camilla Nava MD [facility] [place] [address] 03/20/2024 8:00 AM EST Office Visit Gastroenterology at [place] [phone] Camilla Nava MD [facility] [place] [address] documented as of this encounter Procedures Procedure Name Priority Date/Time Associated Diagnosis Comments HEMOGRAM Routine 07/04/2014 5:44 PM EDT Autoimmune hepatitis DIFFERENTIAL, AUTOMATED Routine 07/04/2014 5:44 PM EDT Autoimmune hepatitis CBC (WITH DIFF) Routine 07/04/2014 5:44 PM EDT Autoimmune hepatitis HEPATIC FUNCTION PANEL Routine 07/04/2014 5:44 PM EDT Autoimmune hepatitis documented in this encounter Results * Differential, Automated (07/04/2014 5:44 PM EDT) Neutrophil % 68.2 % CERNER MILLENNIUM Neutrophil Absolute 5.05 1.50 - 6.30 x10(3)/mcL CERNER MILLENNIUM Lymph % 24.0 % CERNER MILLENNIUM Lymphocytes Abs 1.8 1.0 - 3.6 x10(3)/mcL CERNER MILLENNIUM Monocyte % 6.5 % CERNER MILLENNIUM Monocyte Abs 0.5 0.2 - 1.0 x10(3)/mcL CERNER MILLENNIUM Eos % 0.7 % CERNER MILLENNIUM Eosinophils Abs 0.0 0.0 - 0.5 x10(3)/mcL CERNER MILLENNIUM Basophil % 0.5 % CERNER MILLENNIUM Baso Absolute 0.0 0.0 [...] 0.05 x10(3)/mcL CERNER MILLENNIUM Blood specimen (specimen) 07/04/2014 5:44 PM EDT 07/04/2014 5:47 PM EDT Narrative Resulting Agency Comment Spec In Lab Camilla Nava MD HEMATOLOGY ORDERABLE S CERNER MILLENNIUM * (ABNORMAL) Hemogram (07/04/2014 5:44 PM EDT) White Blood Cell 7.4 4.0 - 10.0 x10(3)/mc L CERNER MILLENNIUM Red Blood Cell 4.90 4.63 - 6.08 x10(6)/mc L CERNER MILLENNIUM Hemoglobin 15.9 13.7 - 17.5 gm/dL CERNER MILLENNIUM Hematocrit 45.5 40.0 - 51.0 % CERNER MILLENNIUM Mean Cell Volume 92.9(H) 79.0 - 92.0 fL CERNER MILLENNIUM Mean Cell Hemoglobin 32.4(H) 25.6 - 32.2 pg CERNER MILLENNIUM Mean Cell Hemoglobin Concentration 34.9 32.0 - 36.5 gm/dL CERNER MILLENNIUM Platelet 245 145 - 370 x10(3)/mc L CERNER MILLENNIUM RDW Standard Deviation 46.0 35.0 - 46.0 fL CERNER MILLENNIUM RDW coefficient of variation 13.6 10.9 - 14.4 % CERNER MILLENNIUM Mean Platelet Volume 10.2 9.0 - 12.0 fL CERNER MILLENNIUM Blood specimen (specimen) 07/04/2014 5:44 PM EDT 07/04/2014 5:47 PM EDT Narrative Resulting Agency Comment Spec In Lab Camilla Nava MD HEMATOLOGY ORDERABLE S IRIS LEEENNIUM * Hepatic Function Panel (07/04/2014 5:44 PM EDT) Protein, Total 7.8 6.1 - 8.0 gm/dL CERNER MILLENNIUM Albumin 5.0 3.2 - 5.2 gm/dL CERNER MILLENNIUM Aspartate Aminotransferase 30 0 - 39 unit/L CERNER MILLENNIUM Alanine Aminotransferase 43 0 - 55 unit/L CERNER MILLENNIUM Alkaline Phosphatase 102 40 - 120 unit/L CERNER MILLENNIUM Bilirubin, Total 0.5 0.2 - 1.3 mg/dL CERNER MILLENNIUM Bilirubin, Direct 0.1 0.0 - 0.3 mg/dL CERNER MILLENNIUM Blood specimen (specimen) 07/04/2014 5:44 PM EDT 07/04/2014 5:47 PM EDT Narrative Resulting Agency Comment Spec In Lab Camilla Nava MD CHEMISTRY ORDERABLES CERNER MILLENNIUM documented in this encounter Visit Diagnoses Diagnosis Autoimmune hepatitis documented in this encounter Care Teams Traffic Operations Manager Relationship Specialty Start Date End Date Puja Tesfaye MD [facility] GENERAL [place] [address] PCP - General 05/06/14 01/22/18 documented as of this encounter
--- OUTSIDE RECORDS SUMMARY | 2024-02-12 14:18 | XMS_ITS | Encounter Summary ---
Author Organization [facility] [place] [address] Care Team Providers Care Washroom Attendant Name Role Phone Puja Tesafye MD Primary Care Provider [phone] Encounter Details Date Type Department Care Team (Latest Contact Info) Description 05/06/2015 5:05 PM EST Laboratory Appointment Lab [address] [place] [address] Autoimmune hepatitis Social History Tobacco [...] EDT Clinical Support Primary Care at [address] [phone] 03/12/2024 8:50 AM [place] [phone] Camilla Nava MD [facility] [place] [address] 03/20/2024 8:00 AM EST Office Visit [place] [address] Camilla Nava MD [facility] [place] [address] documented as of this encounter Procedures Procedure Name Priority Date/Time Associated Diagnosis Comments HEPATIC FUNCTION PANEL Routine 05/06/2015 5:38 PM EST Autoimmune hepatitis documented in this encounter Results * Hepatic Function Panel (05/06/2015 5:38 PM EST) Protein, Total 8.0 6.1 - 8.0 gm/dL CERNER MILLENNIUM Albumin 4.9 3.2 - 5.2 gm/dL CERNER MILLENNIUM Aspartate Aminotransferase 29 0 - 39 unit/L CERNER MILLENNIUM Alanine Aminotransferase 35 0 - 55 unit/L CERNER MILLENNIUM Alkaline Phosphatase 114 40 - 120 unit/L CERNER MILLENNIUM Bilirubin, Total 0.5 0.2 - 1.3 mg/dL CERNER MILLENNIUM Bilirubin, Direct 0.1 0.0 - 0.3 mg/dL CERNER MILLENNIUM Blood specimen (specimen) 05/06/2015 5:38 PM EST 05/06/2015 5:54 PM EST Narrative Resulting Agency Comment Spec In Lab Camilla Nava MD CHEMISTRY ORDERABLES CERNER ROSAENNIUM documented in this encounter Visit Diagnoses Diagnosis Autoimmune hepatitis documented in this encounter Care Teams Washroom Attendant Relationship Specialty Start Date End Date Puja Tesfaye MD [facility] [address] [place] [address] [place] [address] PCP - General 05/06/14 01/22/18 documented as of this encounter
--- OUTSIDE RECORDS SUMMARY | 2024-02-12 14:18 | XMS_ITS | Encounter Summary ---
Author Organization [facility] [place] [address] Care Team Providers Care Transitions Rn Care Coordinator Name Role Phone Puja Tesfaye MD Primary Care Provider Encounter Details Date Type Department Care Team (Late st Contact Info) Description 07/25/2014 Notes [place] [address] Camilla Nava MD [facility] [place] [address] Social History Tobacco Use Types Packs/Day Years [...] Progress Notes * Camilla Nava MD - 07/25/2014 1:19 PM EDT Emessage to pt: Dear Mahamed, Your labs look normal. Please decrease entocort to 3mg/day, continue azathioprine at 100mg/day. Repeat labs in 3 weeks.. Sincerely, Camilla Nava MD Section of Gastroenterology & Hepatology [address] [place] [address] documented in this encounter Plan of Treatment Upcoming Encounters Date Type Department Care Team (Late st Contact Info) Description 02/13/2024 1:00 PM EDT Clinical Support Primary Care at [address] [phone] 03/12/2024 8:50 [place] [phone] Camilla Nava MD [facility] [place] [address] 03/20/2024 8:00 AM EST Office [place] [phone] Camilla Nava MD [facility] [place] [address] documented as of this encounter Visit Diagnoses Not on filedocumented in this encounter Care Teams Transitions Rn Care Coordinator Relationship Specialty Start Date End Date Puja Tesfaye MD [facility] [place] [address] PCP - General 05/06/14 01/22/18 documented as of this encounter
--- OUTSIDE RECORDS SUMMARY | 2024-02-12 14:18 | XMS_ITS | Encounter Summary ---
Author Organization [facility] [place] [address] Care Team Providers Care Consumer Attorney Name Role Phone Puja Tesfaye MD Primary Care Provider Encounter Details Date Type Department Care Team (Latest Contact Info) Description 11/25/2015 8:15 AM EDT Procedure visit [place] [address] Camilla Nava MD [facility] [place] [address] Chronic ulcerative enterocolitis, without complications; Autoimmune hepatitis Social History Tobacco Use Types [...] Progress Notes * Camilla Nava MD - 11/25/2015 8:15 AM EDT See office note from today. documented in this encounter Plan of Treatment Upcoming Encounters Date Type Department Care Team (Late Contact Info) Description 02/13/2024 1:00 PM EDT Clinical Support Primary Care at [address] [phone] 03/12/2024 8:50 AM [place] [address] Camilla Nava MD [facility] [place] [address] 03/20/2024 8:00 AM EST Office Visit [place] [phone] Camilla Nava MD [facility] [place] [address] documented as of this encounter Visit Diagnoses Diagnosis Chronic ulcerative enterocolitis, without complications Autoimmune hepatitis documented in this encounter Care Teams Consumer Attorney Relationship Specialty Start Date End Date Puja Tesfaye MD [facility] [address] [place] [address] PCP - General 05/06/14 01/22/18 documented as of this encounter
--- OUTSIDE RECORDS SUMMARY | 2024-02-12 14:18 | XMS_ITS | Encounter Summary ---
Author Organization [facility] [place] [address] Care Team Providers Care Coin Dealer Name Role Phone Puja Gonzalez MD Primary Care Provider Reason for Referral * Diagnostic Test (Routine) - Closed Specialty Diagnoses / Procedures Referred By Contac t Referred To Contact Radiology Diagnoses Abnormal alkaline phosphatase test Procedures MRI Cholangiopancreatography Laz Longoria MD [facility] [place] [address] [place] [address] Referral ID Status Reason Start Date Expiration Date V isits Requested Visits Authorized [id number] Closed Specialty Service Requested 02/05/2016 04/04/2016 1 1 Encounter Details Date Type Department Care Team (Late st Contact Info) Description 11/25/2015 8:00 AM EDT Office [place] [address] Laz Longoria MD [facility] [address] [place] [phone] Ulcerative colitis without complications, unspecified location; Abnormal alkaline phosphatase test; PSC (primary sclerosing cholangitis); Autoimmune hepatitis Social [...] Sign Reading Time Taken Comments Blood Pressure 126/68 11/25/2015 7:52 AM EDT Pulse 74 11/25/2015 7:52 AM EDT Temperature - - Respiratory Rate - - Oxygen Saturation - - Inhaled Oxygen Concentration - - Weight 82.1 kg (181 lb) 11/25/2015 7:52 AM EDT Height 183.5 cm (6' 0.25) 11/25/2015 7:52 AM ED T Body Mass Index 24.38 11/25/2015 7:52 AM EDT documented in this encounter Progress Notes * Laz Longoria MD - 11/25/2015 8:00 AM EDT Gastoenterology & Hepatology Follow Up Note Provider: LAZ LONGORIA MD Gender: male : 1980 Referring Physician/Primary Care Physician: PUJA GONZALEZ MD Problem List: 1. Autoimmune hepatitis diagnosed [...] 24% IQR; 92% validity c/w F1 fibrosis 2. Ulcerative colitis quiescent but was likely pancolitis diagnosed 1994, 1 major flare 2000 treated with prednisone maintained on asacol 1600mg bid folic acid aza (for AIH) last colonoscopy 01/2013 normal; normal biopsies, no dysplasia Medications: Outpatient Prescriptions Marked as Taking for the 11/25/15 encounter (Office Visit) with Laz Longoria MD Medication Sig Dispense Refill ??? azaTHIOprine 100 mg Tablet Take 1 tablet by mouth daily. 90 tablet 3 ??? folic acid (FOLVITE) 1 mg Tablet TAKE 1 TABLET DAILY 90 tablet 1 ??? APRISO 0.375 gram Capsule, Sust. Release 24 hr TAKE 4 CAPSULES DAILY 360 capsule 3 ADR/ALLERGIES: Allergies Allergen Reactions ??? Hymenoptera Allergenic Extract Angioedema Generalized swelling in chest and neck. Never any wheese, sob or throat symtpoms. ??? Mefloquine Rash Rash occurred while taking sulfa medication and Mefloquine. Unaware of which gave him a reaction. ??? Sulfa (Sulfonamide Antibiotics) Rash Interval History: Mahamed Dale is a 35 y.o. male who presents for follow up of autoimmune hepatitis. He is generally feeling well with no complaints. VITAL SIGNS BP 126/68 (BP Location (NBP): Left arm, Patient Position: Sitting, BP Cuff Sizes: Adult (25-34 cm))Pulse 74 Ht 183.5 cm (6' 0.25) Wt 82.1 kg (181 lb) BMI 24.38 kg/m2 Physical Exam: appears well, in no distress. Recent Results (from the past 24 hour(s)) Hepatic Function Panel Result Value Ref Range Total Protein 7.7 6.1 - 8.0 gm/dL Albumin 4.8 3.2 - 5.2 gm/dL AST 32 0 - 39 unit/L ALT 43 0 - 55 unit/L Alk Phos 128 (H) 40 - 120 unit/L Total Bilirubin 0.6 0.2 - 1.3 mg/dL Bili, Direct 0.1 0.0 - 0.3 mg/dL Assessment/Plan: 34 year old male with UC and autoimmune hepatitis with a prolonged flare 2013- 2014 that is now under control. LFT's have been slightly up at times and alk phos also somewhat. Fibroscan shows minimal fibrosis fortunately. 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 The mild alk phos elevation is the reason why I suspect it as well as the findings on his original biopsy and the fact that he has ulcerative colitis. We discussed this at some length. I suggest repeating MRCP this year. If this is not diagnostic andLFT's remain up we should do a liver biopsy. UC is in remission- for now continue current therapy; colo this year Plan: -MRCP -Colonoscopy -Continue imuran 100mg/day -Continue mesalamine Greater than 25 minutes of this 30minute visit was spent in counseling and discussion. Laz Longoria MD Section of Gastroenterology & Hepatology [address] [place], [place] [phone] Copy: PUJA GONZALEZ MD * Laz Longoria MD - 11/25/2015 8:00 AM EDT Procedure: Vibration Controlled Transient Elastography (VCTE) or Fibroscan Felicity Protocol: Patient's identity, procedure and site were [...] procedure well with no complications. Fibroscan Results: Mean kPa: 6.2 Mean IQR: 24%(goal is <30 %) Success rate: 92% (goal is >60%) Predicted fibrosis stage: 0-1 documented in this encounter Plan of Treatment Upcoming Encounters Date Type Department Care Team (Late st Contact Info) Description 02/13/2024 1:00 PM EDT Clinical Support Primary Care at [address] [phone] 03/12/2024 8:50 AM [place] [address] Laz Longoria MD [facility] [place] [address] 03/20/2024 8:00 AM EST Office [place] [phone] Laz Longoria MD [facility] [place] [address] documented as of this encounter Results * MRI Cholangiopancreatography (02/10/2016 [...] right biliary duct branch. Ongoing follow-up suggested. Laz Longoria MD IMG MRI ORDERABLES * (ABNORMAL) Gamma GT (12/30/2015 2:01 PM EDT) Gamma Glutamyl Transferase 302(H) 8 - 61 unit/L [facility] Blood specimen (specimen) 12/30/2015 2:01 PM EDT 12/30/2015 2:39 PM EDT Narrative Resulting Agency Comment Spec In Lab Laz Longoria MD CHEMISTRY ORDERABLES [facility] [place] [address] * Comprehensive metabolic panel (non-fasting) (12/30/2015 2:01 PM EDT) Glucose 126 65 - 199 mg/dL [facility] Comment:Diabetes: >=200 mg/d L plus symptoms Blood Urea Nitrogen 10 10 - 20 mg/dL [facility] Creatinine 0.81 0.80 - 1.50 mg/dL [facility] Comment: Please note that the pediatric reference intervals supplied above were not validated [place] [facility] [place] Results from pediatric patients should be interpreted in conjunction to the patient's age, height and muscle mass. Sodium 140 135 - 145 mmol/L [facility] [...] 107 mmol/L [facility] Carbon Dioxide 23 22 - 31 mmol/L [facility] Anion Gap 15 5 - 15 mmol/L [facility] Calcium 9.0 8.5 - 10.5 mg/dL [facility] Protein, Total 7.6 6.1 - 8.0 gm/dL [facility] Albumin 4.6 3.2 - 5.2 gm/dL [facility] Aspartate Aminotransferase 28 0 - 39 unit/L [facility] Alanine Aminotransferase 34 0 - 55 unit/L [facility] Alkaline Phosphatase 107 40 - 120 unit/L [facility] Bilirubin, Total 0.7 0.2 - 1.3 mg/dL [facility] Bilirubin, Direct 0.1 0.0 - 0.3 mg/dL [facility] Est Glomerular Filtration Rate >60 >=60 [facility] Comment: This estimated GFR [...] the following links into your internet browser. [email or web address] Blood specimen (specimen) 12/30/2015 2:01 PM EDT 12/30/2015 2:39 PM EDT Narrative Resulting Agency Comment Spec In Lab Laz Longoria MD CHEMISTRY ORDERABLES [facility] [place] [address] documented in this encounter Visit Diagnoses Diagnosis Ulcerative colitis without complications, unspecified location Abnormal alkaline phosphatase test Other nonspecific abnormal serum enzyme levels PSC (primary sclerosing cholangitis) Cholangitis Autoimmune hepatitis Abnormal alkaline phosphatase test Other nonspecific abnormal serum enzyme levels documented in this encounter Care Teams Coin Dealer Relationship Specialty Start Date End Date Puja Gonzalez MD [facility] [address] [place] [address] PCP - General 05/06/14 01/22/18 documented as of this encounter
--- OUTSIDE RECORDS SUMMARY | 2024-02-12 14:18 | XMS_ITS | Encounter Summary ---
Author Organization [facility] [place] [address] Care Team Providers Care Plasma Cutting Machine Operator Name Role Phone Puja Tesfaye MD Primary Care Provider Reason for Visit * Reason Comments Follow-up Encounter Details Date Type Department Care Team (Late st Contact Info) Description 09/24/2014 4:30 PM EDT Follow-[place] [address] Camilla Nava MD [facility] [place] [address] Autoimmune hepatitis Discharge Disposition: Home Social History [...] Sign Reading Time Taken Comments Blood Pressure 132/81 09/24/2014 4:20 PM EDT Pulse 76 09/24/2014 4:20 PM EDT Temperature - - Respiratory Rate - - Oxygen Saturation - - Inhaled Oxygen Concentration - - Weight 84.9 kg (187 lb 1.6 oz) 09/24/2014 4:20 P M EDT Height 183.5 cm (6' 0.25) 09/24/2014 4:20 PM ED T Body Mass Index 25.2 09/24/2014 4:20 PM EDT documented in this encounter Progress Notes * Camilla Nava MD - 09/24/2014 4:49 PM EDT Gastoenterology & Hepatology Follow Up Note Provider: Camilla Nava MD Gender: male : 1980 Referring Physician/Primary Care Physician: PUJA TESFAYE MD Problem List: 1. Autoimmune hepatitis diagnosed [...] 12% IQR; 71% validity c/w F0 fibrosis 2. Ulcerative colitis quiescent but was likely pancolitis diagnosed 1994, 1 major flare 2000 treated with prednisone maintained on asacol 1600mg bid folic acid aza (for AIH) last colonoscopy 01/2013 normal; normal biopsies, no dysplasia Medications: Outpatient Prescriptions Marked as Taking for the 09/24/14 encounter (Follow-Up) with Camilla Nava MD Medication Sig Dispense Refill ??? azaTHIOprine (IMURAN) 50 mg Tablet Take 2 tablets by mouth daily. 180 tablet 3 ??? folic acid (FOLVITE) 1 mg Tablet TAKE 1 TABLET DAILY 90 tablet 2 ??? Mesalamine (APRISO) 0.375 gram Cp24 Take 4 capsules by mouth daily. 360 capsule 4 ADR/ALLERGIES: Allergies Allergen Reactions ??? Sulfa (Sulfonamide Antibiotics) Rash Interval History: Mahamed Dale is a 34 y.o. male who presents for follow up of autoimmune hepatitis. He is generally feeling well with no complaints. VITAL SIGNS BP 132/81 Pulse 76 Ht 183.5 cm (6' 0.25) Wt 84.868 kg (187 lb 1.6 oz) BMI 25.20 kg/m2 Physical Exam: appears well, in no distress. Assessment/Plan: 34 year old male with UC and autoimmune hepatitis with a prolonged flare this year that is now under control. Fibroscan shows no fibrosis fortunately. We discussed risks for other autoimmune conditions such as autoimmune thyroid disease and celiac disease and think we should test for these. For now we should continue the higher dose of imuran until he is stable for a year or more. Check LFT's now and if normal in 3 months. UC is in remission- for now continue current therapy; colo in 2016 Greater than 25 minutes of this 30minute visit was spent in counseling and discussion. Camilla Nava MD Section of Gastroenterology & Hepatology [address] [place] [id number] Copy: PUJA TESFAYE MD documented in this encounter Plan of Treatment Upcoming Encounters Date Type Department Care Team (Late st Contact Info) Description 02/13/2024 1:00 PM EDT Clinical Support Primary Care at [address] [phone] 03/12/2024 8:50 AM [place] [address] Camilla Nava MD [facility] [place] [address] 03/20/2024 8:00 AM EST Office [place] [phone] Camilla Nava MD [facility] [place] [address] documented as of this encounter Results * IgA (10/15/2014 5:14 PM EDT) IgA 157 70 - 400 mg/dL CERNER MILLENNIUM Blood specimen (specimen) 10/15/2014 5:14 PM EDT 10/15/2014 5:24 PM EDT Narrative Resulting Agency Comment Spec In Lab Camilla Nava MD CHEMISTRY ORDERABLES Performing Organization Address City/[facility] Co de Phone Number [facility] * Tissue transglutaminase, IgA (10/15/2014 5:14 PM EDT) TTG IgA Ab 0.3 0.1 - 10.0 u/ml CERNER MILLENNIUM Comment: New methodology as of 08-27-2014 Negative = <7 U/mL Equivocal = 7-10 U/mL Positive = >10 U/mL Blood specimen (specimen) 10/15/2014 5:14 PM EDT 10/16/2014 8:03 AM EDT Narrative Resulting Agency Comment Spec In Lab Camilla Nava MD IMMUNOLOGY ORDERABLE S Performing Organization Address [facility] Co de Phone Number [facility] * TSH (10/15/2014 5:14 PM EDT) Thyroid Stimulating Hormone 2.23 0.27 - 4.20 mcIU/mL CERNER MILLENNIUM Blood specimen (specimen) 10/15/2014 5:14 PM EDT 10/15/2014 5:24 PM EDT Narrative Resulting Agency Comment Spec In Lab Camilla Nava MD CHEMISTRY ORDERABLES Performing Organization Address [facility] Co de Phone Number IRIS HERNANDEZ documented in this encounter Visit Diagnoses Diagnosis Autoimmune hepatitis documented in this encounter Care Teams Plasma Cutting Machine Operator Relationship Specialty Start Date End Date Puja Tesfaye MD [facility] GENER[facility] [place] [address] PCP - General 05/06/14 01/22/18 documented as of this encounter
--- OUTSIDE RECORDS SUMMARY | 2024-02-12 14:18 | XMS_ITS | Encounter Summary ---
Author Organization [facility] [place] [address] Care Team Providers Care Janitor Helper Name Role Phone Puja Tesfaye MD Primary Care Provider Encounter Details Date Type Department Care Team (Latest Contact Info) Description 06/27/2015 5:25 PM EST Laboratory Appointment Lab [address] [place] [address] Autoimmune hepatitis Social History Tobacco [...] PM EDT Clinical Support Primary Care at [address] [phone] 03/12/2024 8:50 AM [place] [address] Camilla Nava MD [facility] [place] [address] 03/20/2024 8:00 AM EST Office Visit [place] [address] Camilla Nava MD [facility] [place] [address] documented as of this encounter Procedures Procedure Name Priority Date/Time Associated Diagnosis Comments HEPATIC FUNCTION PANEL Routine 06/27/2015 5:28 PM EST Autoimmune hepatitis documented in this encounter Results * (ABNORMAL) Hepatic Function Panel (06/27/2015 5:28 PM EST) Protein, Total 8.4(H) 6.1 - 8.0 gm/dL [facility] Albumin 5.0 3.2 - 5.2 gm/dL [facility] Aspartate Aminotransferase 31 0 - 39 unit/L [facility] Alanine Aminotransferase 46 0 - 55 unit/L [facility] Alkaline Phosphatase 135(H) 40 - 120 unit/L [facility] Bilirubin, Total 0.5 0.2 - 1.3 mg/dL [facility] Bilirubin, Direct 0.1 0.0 - 0.3 mg/dL [facility] Blood specimen (specimen) 06/27/2015 5:28 PM EST 06/27/2015 5:32 PM EST Narrative Resulting Agency Comment Spec In Lab Camilla Nava MD CHEMISTRY ORDERABLES [facility] [place] [address] documented in this encounter Visit Diagnoses Diagnosis Autoimmune hepatitis documented in this encounter Care Teams Janitor Helper Relationship Specialty Start Date End Date Puja Tesfaye MD [facility] GENER[facility] [place] [address] PCP - General 05/06/14 01/22/18 documented as of this encounter
--- OUTSIDE RECORDS SUMMARY | 2024-02-12 14:18 | XMS_ITS | Encounter Summary ---
Author Organization [facility] [place] [address] Care Team Providers Care Color Dipper Name Role Phone Puja Tesfaye MD Primary Care Provider [phone] Encounter Details Date Type Department Care Team (Late st Contact Info) Description 05/06/2015 Orders [place] [address] Camilla Nava MD [facility] [place] [address] Autoimmune hepatitis Social History Tobacco Use Types [...] EDT Clinical Support Primary Care at [address] [phone] 03/12/2024 8:50 AM [place] [phone] Camilla Naav MD [facility] GASTROENTEROLOGY [place], [place] [id number] 03/20/2024 8:00 AM EST Office [place] [address] Camilla Nava MD [facility] [place] [address] Scheduled Orders Name Type Priority Associated Diagnoses Orde r Schedule Hepatic Function Panel Lab Routine Autoimmune hepatitis Every two weeks for 24 Occurrences starting 05/06/2015 until 02/29/2020, 22 completed documented as of this encounter Results * Hepatic Function Panel (09/13/2019 7:45 AM EDT) Protein, Total 7.4 6.1 - 8.0 gm/dL [facility] Albumin 4.5 3.2 - 5.2 gm/dL [facility] Aspartate Aminotransferase 15 0 - 39 unit/L [facility] Alanine Aminotransferase 14 0 - 55 unit/L [facility] Alkaline Phosphatase 78 40 - 130 unit/L [facility] Bilirubin, Total 0.4 0.2 - 1.3 mg/dL [facility] Bilirubin, Direct 0.1 0.0 - 0.3 mg/dL [facility] Blood specimen (specimen) 09/13/2019 7:45 AM EDT 09/13/2019 8:05 AM EDT Narrative Resulting Agency Comment Spec In Lab Camilla Nava MD CHEMISTRY ORDERABLES [facility] [place] [address] * (ABNORMAL) Hepatic Function Panel (02/27/2019 12:09 PM EST) Protein, Total 8.3(H) 6.1 - 8.0 gm/dL [facility] Albumin 5.0 3.2 - 5.2 gm/dL [facility] Aspartate Aminotransferase 18 0 - 39 unit/L [facility] Alanine Aminotransferase 18 0 - 55 unit/L [facility] Alkaline Phosphatase 85 40 - 130 unit/L [facility] Bilirubin, Total 0.5 0.2 - 1.3 mg/dL [facility] Bilirubin, Direct 0.1 0.0 - 0.3 mg/dL [facility] Blood specimen (specimen) 02/27/2019 12:09 PM EST 02/27/2019 12:23 PM EST Narrative Resulting Agency Comment Spec In Lab Camilla Nava MD CHEMISTRY ORDERABLES Performing Organization Address [facility] Co de Phone Number [facility] [place] [address] * Hepatic Function Panel (09/28/2018 9:05 AM EDT) Protein, Total 7.6 6.1 - 8.0 gm/dL [facility] Albumin 4.7 3.2 - 5.2 gm/dL [facility] Aspartate Aminotransferase 19 0 - 39 unit/L [facility] Alanine Aminotransferase 19 0 - 55 unit/L [facility] Alkaline Phosphatase 89 40 - 120 unit/L [facility] Bilirubin, Total 0.6 0.2 - 1.3 mg/dL [facility] Bilirubin, Direct 0.1 0.0 - 0.3 mg/dL [facility] Blood specimen (specimen) 09/28/2018 9:05 AM EDT 09/28/2018 9:08 AM EDT Narrative Resulting Agency Comment Spec In Lab Camilla Nava MD CHEMISTRY ORDERABLES Performing Organization Address [facility] Co de Phone Number [facility] [place] [address] * (ABNORMAL) Hepatic Function Panel (06/28/2018 5:54 PM EST) Protein, Total 8.2(H) 6.1 - 8.0 gm/dL [facility] Albumin 5.0 3.2 - 5.2 gm/dL [facility] Aspartate Aminotransferase 20 0 - 39 unit/L [facility] Alanine Aminotransferase 19 0 - 55 unit/L [facility] Alkaline Phosphatase 86 40 - 120 unit/L [facility] Bilirubin, Total 0.3 0.2 - 1.3 mg/dL [facility] Bilirubin, Direct 0.1 0.0 - 0.3 mg/dL [facility] Blood specimen (specimen) 06/28/2018 5:54 PM EST 06/28/2018 6:04 PM EST Narrative Resulting Agency Comment Spec In Lab Camilla Nava MD CHEMISTRY ORDERABLES Performing Organization Address [facility] de Phone Number [facility] [place] [address] * Hepatic Function Panel (03/23/2018 12:26 PM EST) Protein, Total 7.9 6.1 - 8.0 gm/dL [facility] Albumin 4.8 3.2 - 5.2 gm/dL [facility] Aspartate Aminotransferase 19 0 - 39 unit/L [facility] Alanine Aminotransferase 21 0 - 55 unit/L [facility] Alkaline Phosphatase 91 40 - 120 unit/L [facility] Bilirubin, Total 0.6 0.2 - 1.3 mg/dL [facility] Bilirubin, Direct 0.1 0.0 - 0.3 mg/dL [facility] Blood specimen (specimen) 03/23/2018 12:26 PM EST 03/23/2018 12:35 PM EST Narrative Resulting Agency Comment Spec In Lab Camilla Nava MD CHEMISTRY ORDERABLES Performing Organization Address [facility] de Phone Number [facility] [place] [address] * (ABNORMAL) Hepatic Function Panel (12/06/2017 11:27 AM EDT) Protein, Total 7.9 6.1 - 8.0 gm/dL [facility] Albumin 4.9 3.2 - 5.2 gm/dL [facility] Aspartate Aminotransferase 43(H) 0 - 39 unit/L [facility] Alanine Aminotransferase 68(H) 0 - 55 unit/L [facility] Alkaline Phosphatase 158(H) 40 - 120 unit/L [facility] Bilirubin, Total 0.5 0.2 - 1.3 mg/dL [facility] Bilirubin, Direct 0.1 0.0 - 0.3 mg/dL [facility] Blood specimen (specimen) 12/06/2017 11:27 AM EDT 12/06/2017 11:47 AM EDT Narrative Resulting Agency Comment Spec In Lab Camilla Nava MD CHEMISTRY ORDERABLES Performing Organization Address City/State/[facility] Co de Phone Number [facility] [place] [address] * (ABNORMAL) Hepatic Function Panel (11/15/2017 5:24 PM EDT) Protein, Total 7.5 6.1 - 8.0 gm/dL [facility] Albumin 4.6 3.2 - 5.2 gm/dL [facility] Aspartate Aminotransferase 47(H) 0 - 39 unit/L [facility] Alanine Aminotransferase 58(H) 0 - 55 unit/L [facility] Alkaline Phosphatase 138(H) 40 - 120 unit/L [facility] Bilirubin, Total 0.3 0.2 - 1.3 mg/dL [facility] Bilirubin, Direct 0.1 0.0 - 0.3 mg/dL [facility] Blood specimen (specimen) 11/15/2017 5:24 PM EDT 11/15/2017 5:41 PM EDT Narrative Resulting Agency Comment Spec In Lab Camilla Nava MD CHEMISTRY ORDERABLES Performing Organization Address [facility] Co de Phone Number [facility] [place] [address] * (ABNORMAL) Hepatic Function Panel (10/14/2017 4:47 PM EDT) [facility] Signature Protein, Total 7.5 6.1 - 8.0 gm/dL [facility] Albumin 4.5 3.2 - 5.2 gm/dL [facility] Aspartate Aminotransferase 45(H) 0 - 39 unit/L [facility] Alanine Aminotransferase 65(H) 0 - 55 unit/L [facility] Alkaline Phosphatase 172(H) 40 - 120 unit/L [facility] Bilirubin, Total 0.4 0.2 - 1.3 mg/dL [facility] Bilirubin, Direct 0.1 0.0 - 0.3 mg/dL [facility] Blood specimen (specimen) 10/14/2017 4:47 PM EDT 10/14/2017 4:57 PM EDT Narrative Resulting Agency Comment Spec In Lab Camilla Nava MD CHEMISTRY ORDERABLES Performing Organization Address [facility] Co de Phone Number [facility] [place] [address] * (ABNORMAL) Hepatic Function Panel (10/03/2017 5:39 PM EDT) Protein, Total 7.3 6.1 - 8.0 gm/dL [facility] Albumin 4.6 3.2 - 5.2 gm/dL [facility] Aspartate Aminotransferase 47(H) 0 - 39 unit/L [facility] Alanine Aminotransferase 70(H) 0 - 55 unit/L [facility] Alkaline Phosphatase 178(H) 40 - 120 unit/L [facility] Bilirubin, Total 0.4 0.2 - 1.3 mg/dL [facility] Bilirubin, Direct 0.1 0.0 - 0.3 mg/dL [facility] Blood specimen (specimen) 10/03/2017 5:39 PM EDT 10/03/2017 6:03 PM EDT Narrative Resulting Agency Comment Spec In Lab Camilla Nava MD CHEMISTRY ORDERABLES Performing Organization Address [facility] Co de Phone Number [facility] [place] [address] * (ABNORMAL) Hepatic Function Panel (09/21/2017 5:24 PM EDT) Protein, Total 7.8 6.1 - 8.0 gm/dL [facility] Albumin 4.7 3.2 - 5.2 gm/dL [facility] Aspartate Aminotransferase 64(H) 0 - 39 unit/L [facility] Alanine Aminotransferase 113(H) 0 - 55 unit/L [facility] Alkaline Phosphatase 194(H) 40 - 120 unit/L [facility] Bilirubin, Total 0.6 0.2 - 1.3 mg/dL [facility] Bilirubin, Direct 0.2 0.0 - 0.3 mg/dL [facility] Blood specimen (specimen) 09/21/2017 5:24 PM EDT 09/21/2017 5:28 PM EDT Narrative Resulting Agency Comment Spec In Lab Camilla Nava MD CHEMISTRY ORDERABLES Performing Organization Address [facility] Co de Phone Number [facility] [place] [address] * Hepatic Function Panel (06/01/2017 4:11 PM EST) Protein, Total 7.7 6.1 - 8.0 gm/dL [facility] Albumin 4.9 3.2 - 5.2 gm/dL [facility] Aspartate Aminotransferase 33 0 - 39 unit/L [facility] Alanine Aminotransferase 46 0 - 55 unit/L [facility] Alkaline Phosphatase 118 40 - 120 unit/L [facility] Bilirubin, Total 0.5 0.2 - 1.3 mg/dL [facility] Bilirubin, Direct 0.1 0.0 - 0.3 mg/dL [facility] Blood specimen (specimen) 06/01/2017 4:11 PM EST 06/01/2017 4:47 PM EST Narrative Resulting Agency Comment Spec In Lab Camilla Nava MD CHEMISTRY ORDERABLES [facility] [place] [address] * (ABNORMAL) Hepatic Function Panel (03/01/2017 5:24 PM EST) Protein, Total 8.1(H) 6.1 - 8.0 gm/dL [facility] Albumin 5.1 3.2 - 5.2 gm/dL [facility] Aspartate Aminotransferase 26 0 - 39 unit/L [facility] Alanine Aminotransferase 38 0 - 55 unit/L [facility] Alkaline Phosphatase 117 40 - 120 unit/L [facility] Bilirubin, Total 0.4 0.2 - 1.3 mg/dL [facility] Bilirubin, Direct 0.1 0.0 - 0.3 mg/dL [facility] Blood specimen (specimen) 03/01/2017 5:24 PM EST 03/01/2017 5:35 PM EST Narrative Resulting Agency Comment Spec In Lab Camilla Nava MD CHEMISTRY ORDERABLES [facility] [place] [address] * (ABNORMAL) Hepatic Function Panel (11/17/2016 11:34 AM EDT) Protein, Total 7.9 6.1 - 8.0 gm/dL [facility] Albumin 4.6 3.2 - 5.2 gm/dL [facility] Aspartate Aminotransferase 39 0 - 39 unit/L [facility] Alanine Aminotransferase 55 0 - 55 unit/L [facility] Alkaline Phosphatase 142(H) 40 - 120 unit/L [facility] Bilirubin, Total 0.4 0.2 - 1.3 mg/dL [facility] Bilirubin, Direct 0.1 0.0 - 0.3 mg/dL [facility] Blood specimen (specimen) 11/17/2016 11:34 AM EDT 11/17/2016 11:40 AM EDT Narrative Resulting Agency Comment Spec In Lab Camilla Nava MD CHEMISTRY ORDERABLES Performing Organization Address [facility]/ZIP Co de Phone Number [facility] [place] [address] * (ABNORMAL) Hepatic Function Panel (09/23/2016 4:51 PM EDT) Protein, Total 7.8 6.1 - 8.0 gm/dL [facility] Albumin 4.6 3.2 - 5.2 gm/dL [facility] Aspartate Aminotransferase 46(H) 0 - 39 unit/L [facility] Alanine Aminotransferase 73(H) 0 - 55 unit/L [facility] Alkaline Phosphatase 200(H) 40 - 120 unit/L [facility] Bilirubin, Total 0.4 0.2 - 1.3 mg/dL [facility] Bilirubin, Direct 0.1 0.0 - 0.3 mg/dL [facility] Blood specimen (specimen) 09/23/2016 4:51 PM EDT 09/23/2016 4:54 PM EDT Narrative Resulting Agency Comment Spec In Lab Camilla Nava MD CHEMISTRY ORDERABLES Performing Organization Address City/[facility]/ZIP Co de Phone Number [facility] [place] [address] * (ABNORMAL) Hepatic Function Panel (09/03/2016 1:17 PM EDT) Protein, Total 7.8 6.1 - 8.0 gm/dL [facility] Albumin 4.3 3.2 - 5.2 gm/dL [facility] Aspartate Aminotransferase 33 0 - 39 unit/L [facility] Alanine Aminotransferase 60(H) 0 - 55 unit/L [facility] Alkaline Phosphatase 211(H) 40 - 120 unit/L [facility] Bilirubin, Total 0.5 0.2 - 1.3 mg/dL [facility] Bilirubin, Direct 0.1 0.0 - 0.3 mg/dL [facility] Blood specimen (specimen) 09/03/2016 1:17 PM EDT 09/03/2016 1:20 PM EDT Narrative Resulting Agency Comment Spec In Lab Camilla Nava MD CHEMISTRY ORDERABLES Performing Organization Address [facility] de Phone Number [facility] [place] [address] * (ABNORMAL) Hepatic Function Panel (06/07/2016 1:30 PM EST) Pathologist [facility] Protein, Total 8.1(H) 6.1 - 8.0 gm/dL [facility] Albumin 4.8 3.2 - 5.2 gm/dL [facility] Aspartate Aminotransferase 28 0 - 39 unit/L [facility] Alanine Aminotransferase 36 0 - 55 unit/L [facility] Alkaline Phosphatase 109 40 - 120 unit/L [facility] Bilirubin, Total 0.5 0.2 - 1.3 mg/dL [facility] Bilirubin, Direct 0.1 0.0 - 0.3 mg/dL [facility] Blood specimen (specimen) 06/07/2016 1:30 PM EST 06/07/2016 1:34 PM EST Narrative Resulting Agency Comment Spec In Lab Camilla Nava MD CHEMISTRY ORDERABLES Performing Organization Address [facility]/ZIP Co de Phone Number [facility] [place] [address] * Hepatic Function Panel (03/08/2016 5:21 PM EST) Protein, Total 7.5 6.1 - 8.0 gm/dL [facility] Albumin 4.9 3.2 - 5.2 gm/dL [facility] Aspartate Aminotransferase 28 0 - 39 unit/L [facility] Alanine Aminotransferase 27 0 - 55 unit/L [facility] Alkaline Phosphatase 95 40 - 120 unit/L [facility] Bilirubin, Total 0.4 0.2 - 1.3 mg/dL [facility] Bilirubin, Direct 0.1 0.0 - 0.3 mg/dL [facility] Blood specimen (specimen) 03/08/2016 5:21 PM EST 03/08/2016 5:28 PM EST Narrative Resulting Agency Comment Spec In Lab Camilla Nava MD CHEMISTRY ORDERABLES Performing Organization Address [facility] Co de Phone Number [facility] [place] [address] * (ABNORMAL) Hepatic Function Panel (11/24/2015 3:14 PM EDT) Protein, Total 7.7 6.1 - 8.0 gm/dL [facility] Albumin 4.8 3.2 - 5.2 gm/dL [facility] Aspartate Aminotransferase 32 0 - 39 unit/L [facility] Alanine Aminotransferase 43 0 - 55 unit/L [facility] Alkaline Phosphatase 128(H) 40 - 120 unit/L [facility] Bilirubin, Total 0.6 0.2 - 1.3 mg/dL [facility] Bilirubin, Direct 0.1 0.0 - 0.3 mg/dL [facility] Blood specimen (specimen) 11/24/2015 3:14 PM EDT 11/24/2015 3:20 PM EDT Narrative Resulting Agency Comment Spec In Lab Camilla Nava MD CHEMISTRY ORDERABLES Performing Organization Address [facility]/ZIP Co de Phone Number [facility] [place] [address] * (ABNORMAL) Hepatic Function Panel (07/28/2015 5:30 PM EDT) Protein, Total 7.4 6.1 - 8.0 gm/dL [facility] Albumin 4.4 3.2 - 5.2 gm/dL [facility] Aspartate Aminotransferase 42(H) 0 - 39 unit/L [facility] Alanine Aminotransferase 43 0 - 55 unit/L [facility] Alkaline Phosphatase 113 40 - 120 unit/L [facility] Bilirubin, Total 0.5 0.2 - 1.3 mg/dL [facility] Bilirubin, Direct 0.1 0.0 - 0.3 mg/dL [facility] Blood specimen (specimen) 07/28/2015 5:30 PM EDT 07/28/2015 5:33 PM EDT Narrative Resulting Agency Comment Spec In Lab Camilla Nava MD CHEMISTRY ORDERABLES Performing Organization Address [facility] Co de Phone Number [facility] [place] [address] * (ABNORMAL) Hepatic Function Panel (06/27/2015 5:28 PM EST) Protein, Total 8.4(H) 6.1 - 8.0 gm/dL [facility] Albumin 5.0 3.2 - 5.2 gm/dL [facility] Aspartate Aminotransferase 31 0 - 39 unit/L [facility] Alanine Aminotransferase 46 0 - 55 unit/L [facility] Alkaline Phosphatase 135(H) 40 - 120 unit/L [facility] Bilirubin, Total 0.5 0.2 - 1.3 mg/dL [facility] Bilirubin, Direct 0.1 0.0 - 0.3 mg/dL [facility] Blood specimen (specimen) 06/27/2015 5:28 PM EST 06/27/2015 5:32 PM EST Narrative Resulting Agency Comment Spec In Lab Camilla Nava MD CHEMISTRY ORDERABLES Performing Organization Address City/[facility]/ZIP Co de Phone Number [facility] [place] [address] * (ABNORMAL) Hepatic Function Panel (05/30/2015 5:17 [...] Nava MD CHEMISTRY ORDERABLES Performing Organization Address City/[facility]/ZIP Co de Phone Number CERNER MILLENNIUM * Hepatic Function Panel (05/06/2015 5:38 PM [...] Lab Camilla Nava MD CHEMISTRY ORDERABLES [facility] documented in this encounter Visit Diagnoses Diagnosis Autoimmune hepatitis documented in this encounter Care Teams Color Dipper Relationship Specialty Start Date End Date Puja Tesfaye MD [facility] GENERAL [place] [address] PCP - General 05/06/14 01/22/18 documented as of this encounter
--- OUTSIDE RECORDS SUMMARY | 2024-02-12 14:18 | XMS_ITS | Encounter Summary ---
Author Organization [facility] [place] [address] Care Team Providers Care Seed Yeast Operator Name Role Phone Puja Tesfaye MD Primary Care Provider Reason for Visit * Reason Comments Medication Refill Encounter Details Date Type Department Care Team (Late st Contact Info) Description 02/28/2015 Refill [place] [phone] Camilla Nava MD [facility] [place] [place] [address] Social History Tobacco Use Types Packs/Day Years [...] EDT Clinical Support Primary Care at [address] [phone] 03/12/2024 8:50 AM [place] [phone] Camilla Nava MD [facility] [place] [address] 03/20/2024 8:00 AM EST Office [place] [phone] Camilla Nava MD [facility] [place] [address] documented as of this encounter Visit Diagnoses Not on filedocumented in this encounter Care Teams Seed Yeast Operator Relationship Specialty Start Date End Date Puja Tesfaye MD [facility] [address] [place] [address] PCP - General 05/06/14 01/22/18 documented as of this encounter
--- OUTSIDE RECORDS SUMMARY | 2024-02-12 14:18 | XMS_ITS | Encounter Summary ---
Author Organization [facility] Address [facility] [place] [address] Care Team Providers Care Emergency Department Technician Name Role Phone Puja Tesfaye MD Primary Care Provider Reason for Visit * Reason Comments Travel Consult Encounter Details Date Type Department Care Team (Late st Contact Info) Description 03/14/2015 1:30 PM EST Office Visit Infectious Disease at [facility] [place] [address] Kirsten Triplett, RN [facility] [place] [address] Counseling about travel; Healthcare maintenance; Need for prophylactic vaccination and inoculation against viral hepatitis; Need for prophylactic vaccination against Streptococcus pneumoniae (pneumococcus); Hymenoptera allergy Social History Tobacco Use Types Packs/Day Years [...] Sign Reading Time Taken Comments Blood Pressure 142/82 03/14/2015 1:23 PM EST Pulse 101 03/14/2015 1:23 PM EST Temperature 36.5 ??C (97.7 ??F) 03/14/2015 1:23 PM ES T Respiratory Rate - - Oxygen Saturation 100% 03/14/2015 1:23 PM EST Inhaled Oxygen Concentration - - Weight - - Height - - Body Mass Index - - documented in this encounter Patient Instructions * Patient Instructions* Kirsten Triplett RN - 03/14/2015 2:31 PM EST Today, you received the following vaccines: [] Pneumococcal [] Typhoid IM (good for 2-3 years) We discovered that you have antibodies to hepatitis a so you don't need that vaccine. Carry all your medicines in your carry on luggage. Take really good food and water precautions. We discussed Malaria. You will only be in an at risk area for one day in [facility], It sounds like youwill be in the [place]. We talked about [facility] medications but I think it is reasonable to take meticulous insect precautions. This will be essential throughout the trip. Have a great trip! Travel Safely, [email or web address] [phone] documented in this encounter Progress Notes * Kareen Leung DO - 03/19/2015 8:56 PM EST I agree with the recommendations of Kirsten Triplett after review of her note. * Kirsten Triplett RN - 03/14/2015 1:45 PM EST Adult Travel Clinic Reason for Visit: Mr. Dale is a 34 y.o. patient who comes to travel clinic today for pre-travel evaluation, vaccination and traveler's health education. Trip Details: Destination countries (list from first to last): [facility] (1), [facility] (1) [facility] (3d), [place](1), [facility] (3 days) Departure date: Mar 24 Length of trip: 10 days Purpose of travel: business Type of environment: urban Accommodations: hotels Medical History: Medical problems: Patient Active Problem List Diagnosis Code ??? Hepatitis, autoimmune K75.4 ??? Ulcerative colitis K51.90 ??? Healthcare maintenance Z00.00 Current Outpatient Prescriptions Medication Sig Dispense Refill ??? folic acid (FOLVITE) 1 mg Tablet TAKE 1 TABLET DAILY 90 tablet 1 ??? mesalamine (APRISO) 0.375 gram Capsule, Sust. Release 24 hr Take 4 capsules by mouth daily. 360capsule 1 ??? azaTHIOprine (IMURAN) 50 mg Tablet Take 2 tablets by mouth daily. 180 tablet 3 No current facility-administered medications for this visit. Immunosuppression: none History of adverse vaccine reactions: no History of latex, egg or beesting allergy: ? beesting allergy Patient advised to carry all medications in carry on luggage. Travel Health and Safety Issues: A discussion of travel health hazards and safety issues was done, including the following topics: traffic-accidents (alcohol, seatbelts), crime, alcohol related issues, sun exposure/heat illness, Schistosomiasis and other fresh water exposures, rabies, HIV infections, Hepatitis and other STD's, control, TB, Health Insurance coverage/[employer] . Discussed food and water precautions and patient handout provided. The following strategies were recommended for the management of traveler's diarrhea according to severity: ?? For treatment of mild diarrhea: hydration and over the counter antidiarrheal recommended. ?? For treatment of diarrhea accompanied by fever or systemic illness: hydration and empiric treatment with antibiotic recommended. A prescription for Azithromycin 500 mg daily x 3 days sent to pharmacy. ?? For severe or bloody diarrhea, or diarrhea accompanied by vomiting: patient advised to seek medical treatment. Vector-borne Disease Prevention Discussed insect bite prevention to reduce risk of malaria, dengue and other insect borne illnesses. Handout given. Malaria Risk: Malaria risk in country (ies) visited, but not high enough risk on this itinerary to warrant chemoprophylaxis. He will be one day in [facility], in [facility] area. Will focus on insect precautiosn. Altitude: This trip does not involve high altitude. Immunizations Immunization History Administered Date(s) Administered ??? Hepatitis B Vaccine, unspecified formulation 10/23/1997 ??? Influenza PF, Split 03/02/2012, 01/23/2013, 02/20/2015 ??? Influenza Vaccine (Novel) [id number], Injectable 04/06/2009 ??? Influenza Vaccine, Whole 02/21/2009, 02/16/2010, 03/14/2014 ??? MMR Vaccine, Live 09/23/1980, 12/24/1990 ??? Meningococcal Polysaccharide (MPSV4) 01/23/1999 ??? Pneumococcal Conjugate (13 Valent) 09/11/2014 ??? Td, adult 12/24/2001 ??? Tdap Vaccine 05/01/2012 Thinks hep B was full series Hep A antibody + 2001 Chicken pox illness Typhoid - vi today pneumovax [address] Leung Will give today. Rabies - discussed animal avoidance, wound care and need for post-exposure prophylaxis. Follow-up Recommendations: none Patient advised to call travel clinic if they return from trip with any illness. Time spent in travel counselin min Vaccine information sheets given. documented in this encounter Plan of Treatment Upcoming Encounters Date Type Department Care Team (Late st Contact Info) Description 02/13/2024 1:00 PM EDT Clinical Support Primary Care at [address] [address] 03/12/2024 8:50 AM EST Appointment MRI at [place] [phone] Camilla Nava MD [facility] [place] [address] 03/20/2024 8:00 AM EST Office Visit Gastroenterology at [place] [phone] Camilla Nava MD 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 [place] [address] PCP - General 05/06/14 01/22/18 documented as of this encounter
--- OUTSIDE RECORDS SUMMARY | 2024-02-12 14:18 | XMS_ITS | Encounter Summary ---
Author Organization [facility] [place] [address] Care Team Providers Care Mailing Jogger Name Role Phone Adiel Mooney MD Primary Care Provider [phone] Reason for Visit * Reason Comments Medication Refill Encounter Details Date Type Department Care Team (Late st Contact Info) Description 07/30/2014 Refill [place] [phone] Camilla Nava MD [facility] [place] [address] Ulcerative colitis, unspecified Social History Tobacco Use Types Packs/Day Years [...] place to sleep or slept in a fdc (including now)? No 03/05/2021 Sex and Gender [...] EDT Clinical Support Primary Care at [address] [phone] 03/12/2024 8:50 AM [place] [address] Camilla Nava MD [facility] [place] [address] 03/20/2024 8:00 AM EST Office Visit [place] [phone] Camilla Nava MD [facility] [place] [address] documented as of this encounter Visit Diagnoses Diagnosis Ulcerative colitis, unspecified documented in this encounter Care Teams Mailing Jogger Relationship Specialty Start Date End Date Adiel Mooney MD [facility] [place] [address] PCP - General General Internal Medicine 09/20/18 documented as of this encounter
--- OUTSIDE RECORDS SUMMARY | 2024-02-12 14:18 | XMS_ITS | Encounter Summary ---
Author Organization [facility] [place] [address] Care Team Providers Care Registrar College Or University Name Role Phone Puja Tesfaye MD Primary Care Provider Reason for Visit * Reason Comments Medication Refill Encounter Details Date Type Department Care Team (Late st Contact Info) Description 08/11/2015 Refill [place] [phone] Camilla Nava MD [facility] [place] [address] Ulcerative colitis without complications, unspecified location Social [...] EDT Clinical Support Primary Care at [address] [address] 03/12/2024 8:50 AM [place] [phone] Camilla Nava MD [facility] [place] [address] 03/20/2024 8:00 AM EST Office Visit [place] [address] Camilla Nava MD [facility] [place] [address] documented as of this encounter Visit Diagnoses Diagnosis Ulcerative colitis without complications, unspecified location documented in this encounter Care Teams Registrar College [employer] Relationship Specialty Start Date End Date Puja Tesfaye MD [facility] [place] [address] PCP - General 05/06/14 01/22/18 documented as of this encounter
--- OUTSIDE RECORDS SUMMARY | 2024-02-12 14:18 | XMS_ITS | Encounter Summary ---
Author Organization [facility] [place] [address] Care Team Providers Care Machine Design Checker Name Role Phone Puja Tesfaye MD Primary Care Provider Encounter Details Date Type Department Care Team (Latest Contact Info) Description 11/24/2015 3:05 PM EDT Laboratory Appointment Lab [address] [place] [address] Autoimmune hepatitis Social History Tobacco [...] EDT Clinical Support Primary Care at [address] [phone] 03/12/2024 8:50 AM [place] [address] Camilla Nava MD [facility] [place] [address] 03/20/2024 8:00 AM EST Office [place] [address] Camilla Nava MD [facility] [place] [address] documented as of this encounter Procedures Procedure Name Priority Date/Time Associated Diagnosis Comments HEPATIC FUNCTION PANEL Routine 11/24/2015 3:14 PM EDT Autoimmune hepatitis documented in this encounter Results * (ABNORMAL) Hepatic Function Panel (11/24/2015 3:14 PM EDT) Protein, Total 7.7 6.1 - 8.0 gm/dL [facility] Albumin 4.8 3.2 - 5.2 gm/dL [facility] Aspartate Aminotransferase 32 0 - 39 unit/L [facility] Alanine Aminotransferase 43 0 - 55 unit/L [facility] Alkaline Phosphatase 128(H) 40 - 120 unit/L [facility] Bilirubin, Total 0.6 0.2 - 1.3 mg/dL [facility] Bilirubin, Direct 0.1 0.0 - 0.3 mg/dL [facility] Blood specimen (specimen) 11/24/2015 3:14 PM EDT 11/24/2015 3:20 PM EDT Narrative Resulting Agency Comment Spec In Lab Camilla Nava MD CHEMISTRY ORDERABLES [facility] [place] [address] documented in this encounter Visit Diagnoses Diagnosis Autoimmune hepatitis documented in this encounter Care Teams Machine Design Checker Relationship Specialty Start Date End Date Puja Tesfaye MD [facility] [place] [address] PCP - General 05/06/14 01/22/18 documented as of this encounter
--- OUTSIDE RECORDS SUMMARY | 2024-02-12 14:18 | XMS_ITS | Encounter Summary ---
Author Organization [facility] [place] [address] Care Team Providers Care University Partnership Rep Name Role Phone Puja Tesfaye MD Primary Care Provider Encounter Details Date Type Department Care Team (Late st Contact Info) Description 03/21/2015 Telephone Infectious Disease at [facility] [place] [phone] Adriana Barrett RN Social History Tobacco Use Types Packs/Day [...] encounter Miscellaneous Notes * Telephone Encounter - Adriana Barrett RN - 03/21/2015 9:27 AM EST TC to Mr Dale to discuss use of epi pen for hymenoptera allergy He states he did discuss with Kirsten Triplett RN at the time of his Travel Clinic visit on 03/14/15 ; she's the one who diagnosed it An epi pen was ordered and he has picked it up for travel to [facility] on 03/24/15 documented in this encounter Plan of Treatment Upcoming Encounters Date Type Department Care Team (Late st Contact Info) Description 02/13/2024 1:00 PM EDT Clinical Support Primary Care at [address] [phone] 03/12/2024 8:50 AM [place] [address] Camilla Nava MD [facility] GASTROENTEROLOGY [place], [place] [phone] 03/20/2024 8:00 AM EST Office [place] [address] Camilla Nava MD [facility] [place] [address] documented as of this encounter Visit Diagnoses Not on filedocumented in this encounter Care Teams University Partnership Rep Relationship Specialty Start Date End Date Puja Tesfaye MD [facility] [place] [address] PCP - General 05/06/14 01/22/18 documented as of this encounter
--- OUTSIDE RECORDS SUMMARY | 2024-02-12 14:19 | XMS_ITS | Encounter Summary ---
Author Organization [facility] Anjelica [place] [address] Care Team Providers Care Crm Business Analyst Name Role Phone Yash Laguna MD Primary Care Provider Mack mittal Encounter Details Date Type Department Care Team (Late st Contact Info) Description 12/27/2013 Notes Only Gastroenterology at [place] [phone] Camilla Nava MD [facility] [place] [address] Social History Tobacco Use Types Packs/Day Years Used Date Smoking Tobacco: Never Alcohol Use Standard Drinks/Week Comments Yes 4.2 (1 standard drink = 0.6 oz p ure alcohol) Sex and Gender Information Value Date Recorded Sex Assigned at Male 03/31/2023 12:56 PM EST Gender Identity Male 03/31/2023 12:56 PM EST Sexual Orientation Straight 03/31/2023 12 :56 PM EST documented as of this encounter Progress Notes * Camilla Nava MD - 12/27/2013 3:20 PM EDT [facility] message: Dear Mahamed, Labs look good. Can you decrease the entocort to 3mg every other day and repeat liver tests in 3 weeks? Sincerely, Camilla Nava MD Section of Gastroenterology & Hepatology [address] [place] [address] documented in this encounter Plan of Treatment Upcoming Encounters Date Type Department Care Team (Late st Contact Info) Description 02/13/2024 1:00 PM EDT Clinical Support Primary Care at [address] [address] 03/12/2024 8:50 AM [place] [phone] Camilla Nava MD [facility] [place] [address] 03/20/2024 8:00 AM EST Office [place] [phone] Camilla Nava MD [facility] [place] [address] documented as of this encounter Visit Diagnoses Not on filedocumented in this encounter Care Teams Crm Business Analyst Relationship Specialty Start Date End Date Yash Laguna MD PCP - General 03/17/10 02/14/14 documented as of this encounter
--- OUTSIDE RECORDS SUMMARY | 2024-02-12 14:19 | XMS_ITS | Encounter Summary ---
Author Organization [facility] [place] [address] Care Team Providers Care Cell Tuber Hand Name Role Phone Yash Laguna MD Primary Care Provider Mack mittal Encounter Details Date Type Department Care Team (Latest Contact Info) Description 11/13/2013 5:36 PM EDT - 11/13/2013 11:59 PM EDT Hospital [place] [phone] Camilla Nava MD [facility] GASTROENTEROLOGY [place] [phone] Autoimmune hepatitis Discharge Disposition: Home Social History [...] End Date budesonide (ENTOCORT EC) 3 mg 24 hr capsule Take 3 capsules by mouth every morning. 90 capsule 3 10/02/2013 04/25/2014 folic acid (FOLVITE) 1 mg tablet TAKE 1 TABLET BY MOUTH DAILY 90 tablet 3 09/07/2013 07/30/2014 azaTHIOprine (IMURAN) 50 mg tablet TAKE 1 AND 1/2 TABLETS BY MOUTH DAILY 135 tablet 3 09/03/2013 04/25/2014 Mesalamine (APRISO) 0.375 gram Cp24 Take 4 capsules by mouth daily. 360 capsule 4 06/19/2013 02/10/2015 documented as of this encounter Plan of Treatment Upcoming Encounters Date Type Department Care Team (Late st Contact Info) Description 02/13/2024 1:00 PM EDT Clinical Support Primary Care at [address] [phone] 03/12/2024 8:50 [place] [address] Camilla Nava MD [facility] GASTROENTEROLOGY [place], [place] [phone] 03/20/2024 8:00 AM EST Office [place] [address] Camilla Nava MD [facility] GASTROENTEROLOGY [place], [place] [phone] documented as of this encounter Procedures Procedure Name Priority Date/Time Associated Diagnosis Comments HEPATIC FUNCTION PANEL Routine 11/13/2013 5:48 PM EDT Autoimmune hepatitis documented in this encounter Results * Hepatic Function Panel (11/13/2013 5:48 PM EDT) Protein, Total 8.1 6.4 - 8.3 gm/dL [facility] Albumin 4.9 3.2 - 5.2 gm/dL [facility] Aspartate Aminotransferase 27 0 - 39 unit/L [facility] Alanine Aminotransferase 42 0 - 55 unit/L [facility] Alkaline Phosphatase 107 40 - 120 unit/L [facility] Bilirubin, Total 0.4 0.2 - 1.3 mg/dL [facility] Bilirubin, Direct 0.1 0.0 - 0.3 mg/dL [facility] Blood specimen (specimen) 11/13/2013 5:48 PM EDT 11/13/2013 5:53 PM EDT Narrative Resulting Agency Comment Spec In Lab Camilla Nava MD CHEMISTRY ORDERABLES [facility] documented in this encounter Visit Diagnoses Diagnosis Autoimmune hepatitis documented in this encounter Care Teams Cell Tuber Hand Relationship Specialty Start Date End Date Yash Laguna MD PCP - General 03/17/10 02/14/14 documented as of this encounter
--- OUTSIDE RECORDS SUMMARY | 2024-02-12 14:19 | XMS_ITS | Encounter Summary ---
Author Organization [facility] [place] [address] Care Team Providers Care Internet Merchant Name Role Phone None Primary Care Provider Unavailabl e Encounter Details Date Type Department Care Team (Late st Contact Info) Description 04/25/2014 Orders Only Gastroenterology at [facility] [place] [address] Camilla Nava MD [facility] [place] [address] Social History Tobacco Use Types Packs/Day Years [...] Progress Notes * Camilla Nava MD - 04/25/2014 3:02 PM EST I called Mahamed with recent lab results. ALT was 140- highest it's been since this flare of AIH. He had a cold at the time. He had few alcoholic drinks over [place]. He feels well now. Plan: Increase entocort to 9mg/day. Continue imuran 100mg/day Repeat labs in 2 weeks Avoid alcohol documented in this encounter Plan of Treatment Upcoming Encounters Date Type Department Care Team (Late st Contact Info) Description 02/13/2024 1:00 PM EDT Clinical Support Primary Care at [address] [phone] 03/12/2024 8:50 AM [place] [address] Camilla Nava MD [facility] [place] [address] 03/20/2024 8:00 AM EST Office Visit [place] [phone] Camilla Nava MD [facility] [place] [address] documented as of this encounter Visit Diagnoses Not on filedocumented in this encounter Care Teams Internet Merchant Relationship Specialty Start Date End Date None None PCP - General 02/15/14 05/05/14 documented as of this encounter
--- OUTSIDE RECORDS SUMMARY | 2024-02-12 14:19 | XMS_ITS | Encounter Summary ---
Author Organization [facility] Address [facility] [place] [address] Care Team Providers Care Council On Aging Director Name Role Phone Puja Tesfaye MD Primary Care Provider Encounter Details Date Type Department Care Team (Latest Contact Info) Description 05/09/2014 4:55 PM EST - 05/09/2014 11:59 PM EST Hospital Encounter Laboratory [place] [phone] Camilla Nava MD [facility] GASTROENTEROLOGY [place] [phone] Autoimmune hepatitis Discharge Disposition: Home Social History [...] Progress Notes * Camilla Nava MD - 05/10/2014 10:13 AM ESTQuick Note: Dear Mahamed, I am very pleased that the liver tests have normalized. Given the recent volatility, I suggest staying on the 9mg/day a full 3 weeks before cutting to 6mg/day. After you reduce to 6mg/day, then repeat labs 2 weeks after the reduced dose. Sincerely, Camilla Nava MD Section of Gastroenterology & Hepatology [address] [place] [address] documented in this encounter Plan of Treatment Upcoming Encounters Date Type Department Care Team (Late st Contact Info) Description 02/13/2024 1:00 PM EDT Clinical Support Primary Care at [address] [address] 03/12/2024 8:50 [place] [address] Camilla Nava MD [facility] [place] [address] 03/20/2024 8:00 AM EST Office [place] [address] Camilla Nava MD [facility] [place] [address] Scheduled Orders Name Type Priority Associated Diagnoses Orde r Schedule Hepatic Function Panel Lab Routine Autoimmune hepatitis 1 Occurrences starting 05/09/2014 until 05/09/2014 CBC (with Diff) Lab Routine Autoimmune hepatitis 1 Occurrences starting 05/09/2014 until 05/09/2014 documented as of this encounter Procedures Procedure Name Priority Date/Time Associated Diagnosis Comments HEMOGRAM Routine 05/09/2014 5:04 PM EST Autoimmune hepatitis DIFFERENTIAL, AUTOMATED Routine 05/09/2014 5:04 PM EST Autoimmune hepatitis CBC (WITH DIFF) Routine 05/09/2014 5:04 PM EST Autoimmune hepatitis HEPATIC FUNCTION PANEL Routine 05/09/2014 5:04 PM EST Autoimmune hepatitis documented in this encounter Results * (ABNORMAL) Differential, Automated (05/09/2014 5:04 PM EST) Neutrophil % 79.8 % CERNER MILLENNIUM Neutrophil Absolute 7.20(H) 1.50 - 6.30 x10(3)/mc L CERNER MILLENNIUM Lymph % 10.3 % CERNER MILLENNIUM Lymphocytes Abs 0.9(L) 1.0 - 3.6 x10(3)/mc L CERNER MILLENNIUM Monocyte % 8.5 % CERNER MILLENNIUM Monocyte Abs 0.8 0.2 - 1.0 x10(3)/mc L CERNER MILLENNIUM Eos % 1.1 % CERNER MILLENNIUM Eosinophils Abs 0.1 0.0 - 0.5 x10(3)/mc L CERNER MILLENNIUM Basophil % 0.2 % CERNER MILLENNIUM Baso Absolute 0.0 0.0 - 0.2 x10(3)/mc L CERNER MILLENNIUM Immature Gran % 0.10 % CERN ER MILLENNIUM Comment: Immature granulocytes(IG's)percentage and absolute count will include metamyelocytes, myelocytes, and promyelocytes. Blood smears from CBCs yielding IG's will be scanned manually for concordance. If this scan disagrees with the automated IG or if promyelocytes are noted, a manual differential will be performed. Immature Gran Absolute 0.01 0.00 - 0.05 x10(3)/mc L CERNER MILLENNIUM Blood specimen (specimen) 05/09/2014 5:04 PM EST 05/09/2014 5:20 PM EST Narrative Resulting Agency Comment Spec In Lab Camilla Nava MD HEMATOLOGY ORDERABLE S CERNER MILLENNIUM * (ABNORMAL) Hemogram (05/09/2014 5:04 PM EST) White Blood Cell 9.0 4.0 - 10.0 x10(3)/mc L CERNER MILLENNIUM Red Blood Cell 4.94 4.63 - 6.08 x10(6)/mc L CERNER MILLENNIUM Hemoglobin 16.1 13.7 - 17.5 gm/dL CERNER MILLENNIUM Hematocrit 45.2 40.0 - 51.0 % CERNER MILLENNIUM Mean Cell Volume 91.5 79.0 - 92.0 fL CERNER MILLENNIUM Mean Cell Hemoglobin 32.6(H) 25.6 - 32.2 pg CERNER MILLENNIUM Mean Cell Hemoglobin Concentration 35.6 32.0 - 36.5 gm/dL CERNER MILLENNIUM Platelet 252 145 - 370 x10(3)/mc L CERNER MILLENNIUM RDW Standard Deviation 44.0 35.0 - 46.0 fL CERNER MILLENNIUM RDW coefficient of variation 13.3 10.9 - 14.4 % CERNER MILLENNIUM Mean Platelet Volume 10.9 9.0 - 12.0 fL CERNER MILLENNIUM Blood specimen (specimen) 05/09/2014 5:04 PM EST 05/09/2014 5:20 PM EST Narrative Resulting Agency Comment Spec In Lab Camilla Nava MD HEMATOLOGY ORDERABLE S CERNER MILLENNIUM * Hepatic Function Panel (05/09/2014 5:04 PM EST) Protein, Total 8.2 6.4 - 8.3 gm/dL CERNER MILLENNIUM Albumin 4.8 3.2 - 5.2 gm/dL CERNER MILLENNIUM Aspartate Aminotransferase 26 0 - 39 unit/L CERNER MILLENNIUM Alanine Aminotransferase 38 0 - 55 unit/L CERNER MILLENNIUM Alkaline Phosphatase 105 40 - 120 unit/L CERNER MILLENNIUM Bilirubin, Total 0.5 0.2 - 1.3 mg/dL CERNER MILLENNIUM Bilirubin, Direct 0.1 0.0 - 0.3 mg/dL CERNER MILLENNIUM Blood specimen (specimen) 05/09/2014 5:04 PM EST 05/09/2014 5:20 PM EST Narrative Resulting Agency Comment Spec In Lab Camilal Nava MD CHEMISTRY ORDERABLES Performing Organization Address City/State/[facility] Co ne Phone Number [facility] documented in this encounter Visit Diagnoses Diagnosis Autoimmune hepatitis documented in this encounter Care Teams Council On Aging Director Relationship Specialty Start Date End Date Puja Tesfaye MD [facility] [place] [address] PCP - General 05/06/14 01/22/18 documented as of this encounter
--- OUTSIDE RECORDS SUMMARY | 2024-02-12 14:19 | XMS_ITS | Encounter Summary ---
Author Organization [facility] [place] [address] Care Team Providers Care Record Clerk Salesperson Name Role Phone None Primary Care Provider Unavailabl e Encounter Details Date Type Department Care Team (Late st Contact Info) Description 03/11/2014 Orders [place] [address] Katy [place] Social History Tobacco Use Types Packs/Day Years [...] EDT Clinical Support Primary Care at [address] [address] 03/12/2024 8:50 [place] [address] Camilla Nava MD [facility] [place] [address] 03/20/2024 8:00 AM EST Office [place] [address] Camilla Nava MD [facility] [place] [address] documented as of this encounter Visit Diagnoses Not on filedocumented in this encounter Care Teams Record Clerk Salesperson Relationship Specialty Start Date End Date None None PCP - General 02/15/14 05/05/14 documented as of this encounter
--- OUTSIDE RECORDS SUMMARY | 2024-02-12 14:19 | XMS_ITS | Encounter Summary ---
Author Organization [facility] [place] [address] Care Team Providers Care Monument Installer Name Role Phone Yash Laguna MD Primary Care Provider Mack mittal Encounter Details Date Type Department Care Team (Latest Contact Info) Description 12/03/2013 4:39 PM EDT - 12/03/2013 11:59 PM EDT [place] [phone] Camilla Nava MD [facility] GASTROENTEROLOGY [place] [phone] Autoimmune hepatitis Discharge Disposition: Home Social History [...] EDT Clinical Support Primary Care at [address] [address] 03/12/2024 8:50 AM [place] [address] Camilla Nava MD [facility] [place] [address] 03/20/2024 8:00 AM EST Office Visit [place] [address] Camilla Nava MD [facility] GASTROENTEROLOGY [place], [place] [phone] Scheduled Orders Name Type Priority Associated Diagnoses Orde r Schedule Hepatic Function Panel Lab Routine Autoimmune hepatitis 1 Occurrences starting 12/03/2013 documented as of this encounter Procedures Procedure Name Priority Date/Time Associated Diagnosis Comments HEPATIC FUNCTION PANEL Routine 12/03/2013 4:49 PM EDT Autoimmune hepatitis documented in this encounter Results * (ABNORMAL) Hepatic Function Panel (12/03/2013 4:49 PM EDT) Protein, Total 7.8 6.4 - 8.3 gm/dL CERNER MILLENNIUM Albumin 4.7 3.2 - 5.2 gm/dL CERNER MILLENNIUM Aspartate Aminotransferase 37 0 - 39 unit/L CERNER MILLENNIUM Alanine Aminotransferase 59(H) 0 - 55 unit/L CERNER MILLENNIUM Alkaline Phosphatase 120 40 - 120 unit/L CERNER MILLENNIUM Bilirubin, Total 0.4 0.2 - 1.3 mg/dL CERNER MILLENNIUM Bilirubin, Direct 0.1 0.0 - 0.3 mg/dL CERNER MILLENNIUM Blood specimen (specimen) 12/03/2013 4:49 PM EDT 12/03/2013 5:04 PM EDT Narrative Resulting Agency Comment Spec In Lab Camilla Nava MD CHEMISTRY ORDERABLES Performing Organization Address City/State/[facility] Co tx Phone Number [facility] documented in this encounter Visit Diagnoses Diagnosis Autoimmune hepatitis documented in this encounter Care Teams Monument Installer Relationship Specialty Start Date End Date Yash Laguna MD PCP - General 03/17/10 02/14/14 documented as of this encounter
--- OUTSIDE RECORDS SUMMARY | 2024-02-12 14:19 | XMS_ITS | Encounter Summary ---
Author Organization [facility] [place] [address] Care Team Providers Care Drywall Worker Name Role Phone Yash Laguna MD Primary Care Provider Mack mittal Encounter Details Date Type Department Care Team (Late st Contact Info) Description 06/21/2013 Orders [place] [phone] Camilla Nava MD [facility] [place] [address] Ulcerative colitis, unspecified (Primary Dx) Social History Tobacco Use Types Packs/Day Years [...] PM EDT Clinical Support Primary Care at [address] [phone] 03/12/2024 8:50 [place] [phone] Camilla Nava MD [facility] [place] [address] 03/20/2024 8:00 AM EST Office [place] [address] Camilla Nava MD [facility] [place] [address] documented as of this encounter Visit Diagnoses Diagnosis Ulcerative colitis, unspecified- Primary documented in this encounter Care Teams Drywall Worker Relationship Specialty Start Date End Date Yash Laguna MD PCP - General 03/17/10 02/14/14 documented as of this encounter
--- OUTSIDE RECORDS SUMMARY | 2024-02-12 14:19 | XMS_ITS | Encounter Summary ---
Author Organization [facility] [place] [address] Care Team Providers Care Psychologist Counseling Name Role Phone None Primary Care Provider Unavailabl e Encounter Details Date Type Department Care Team (Latest Contact Info) Description 04/04/2014 4:00 PM EST - 04/04/2014 11:59 PM EST Hospital Encounter Laboratory [address] [place] [phone] Camilla Nava MD [facility] [place] [address] Autoimmune hepatitis Discharge Disposition: Home Social History [...] EDT Clinical Support Primary Care at [address] [address] 03/12/2024 8:50 [place] [address] Camilla Nava MD [facility] [place] [address] 03/20/2024 8:00 AM EST Office [place] [phone] Camilla Nava MD [facility] GASTROENTEROLOGY [place], [place] [phone] documented as of this encounter Procedures Procedure Name Priority Date/Time Associated Diagnosis Comments HEMOGRAM Routine 04/04/2014 4:11 PM EST Autoimmune hepatitis DIFFERENTIAL, AUTOMATED Routine 04/04/2014 4:11 PM EST Autoimmune hepatitis CBC (WITH DIFF) Routine 04/04/2014 4:11 PM EST Autoimmune hepatitis HEPATIC FUNCTION PANEL Routine 04/04/2014 4:11 PM EST Autoimmune hepatitis documented in this encounter Results * Differential, Automated (04/04/2014 4:11 PM EST) Neutrophil % 71.7 % CERNER MILLENNIUM Neutrophil Absolute 5.50 1.50 - 6.30 x10(3)/mcL CERNER MILLENNIUM Lymph % 18.8 % CERNER MILLENNIUM Lymphocytes Abs 1.4 1.0 - 3.6 x10(3)/mcL CERNER MILLENNIUM Monocyte % 8.6 % CERNER MILLENNIUM Monocyte Abs 0.7 0.2 - 1.0 x10(3)/mcL CERNER MILLENNIUM Eos % 0.3 % CERNER MILLENNIUM Eosinophils Abs 0.0 0.0 [...] 0.05 x10(3)/mcL CERNER MILLENNIUM Blood specimen (specimen) 04/04/2014 4:11 PM EST 04/04/2014 4:24 PM EST Narrative Resulting Agency Comment Spec In Lab Camilla Nava MD HEMATOLOGY ORDERABLE S CERNER MILLENNIUM * Hemogram (04/04/2014 4:11 PM EST) White Blood Cell 7.7 4.0 - 10.0 x10(3)/mcL CERNER MILLENNIUM Red Blood Cell 4.92 4.63 - 6.08 x10(6)/mcL CERNER MILLENNIUM Hemoglobin 15.8 13.7 - 17.5 gm/dL CERNER MILLENNIUM Hematocrit 44.5 40.0 - 51.0 % CERNER MILLENNIUM Mean Cell Volume 90.4 79.0 - 92.0 fL CERNER MILLENNIUM Mean Cell Hemoglobin 32.1 25.6 - 32.2 pg CERNER MILLENNIUM Mean Cell Hemoglobin Concentration 35.5 32.0 - 36.5 gm/dL CERNER MILLENNIUM Platelet 248 145 - 370 x10(3)/mcL CERNER MILLENNIUM RDW Standard Deviation 43.1 35.0 - 46.0 fL CERNER MILLENNIUM RDW coefficient of variation 13.1 10.9 - 14.4 % CERNER MILLENNIUM Mean Platelet Volume 10.0 9.0 - 12.0 fL CERNER MILLENNIUM Blood specimen (specimen) 04/04/2014 4:11 PM EST 04/04/2014 4:24 PM EST Narrative Resulting Agency Comment Spec In Lab Camilla Nava MD HEMATOLOGY ORDERABLE S Performing Organization Address City/[facility] Co de Phone Number IRIS MILLENNIUM * Hepatic Function Panel (04/04/2014 4:11 PM EST) Protein, Total 7.9 6.4 - 8.3 gm/dL CERNER MILLENNIUM Albumin 4.8 3.2 - 5.2 gm/dL CERNER MILLENNIUM Aspartate Aminotransferase 30 0 - 39 unit/L CERNER MILLENNIUM Alanine Aminotransferase 49 0 - 55 unit/L CERNER MILLENNIUM Alkaline Phosphatase 108 40 - 120 unit/L CERNER MILLENNIUM Bilirubin, Total 0.5 0.2 - 1.3 mg/dL CERNER MILLENNIUM Bilirubin, Direct 0.1 0.0 - 0.3 mg/dL CERNER MILLENNIUM Blood specimen (specimen) 04/04/2014 4:11 PM EST 04/04/2014 4:24 PM EST Narrative Resulting Agency Comment Spec In Lab Camilla Nava MD CHEMISTRY ORDERABLES Performing Organization Address City/[facility]/ZIP Co de Phone Number IRIS HOYTIUM documented in this encounter Visit Diagnoses Diagnosis Autoimmune hepatitis documented in this encounter Care Teams Psychologist Counseling Relationship Specialty Start Date End Date None None PCP - General 02/15/14 05/05/14 documented as of this encounter
--- OUTSIDE RECORDS SUMMARY | 2024-02-12 14:19 | XMS_ITS | Encounter Summary ---
Author Organization [facility] [place] [address] Care Team Providers Care Educational Psychology Teacher Name Role Phone Yash Laguna MD Primary Care Provider Mack mittal Encounter Details Date Type Department Care Team (Latest Contact Info) Description 10/22/2013 4:39 PM EDT - 10/22/2013 11:59 PM EDT Hospital [place] [phone] Camilla Nava MD [facility] GASTROENTEROLOGY [place] [phone] Autoimmune hepatitis Discharge Disposition: Home Social History [...] PM EDT Clinical Support Primary Care at [address] [phone] 03/12/2024 8:50 AM [place] [address] Camilla Nava MD [facility] [place] [address] 03/20/2024 8:00 AM EST Office [place] [address] Camilla Nava MD [facility] GASTROENTEROLOGY [place], [place] [phone] Scheduled Orders Name Type Priority Associated Diagnoses Orde r Schedule Hepatic Function Panel Lab Routine Autoimmune hepatitis 1 Occurrences starting 10/22/2013 documented as of this encounter Procedures Procedure Name Priority Date/Time Associated Diagnosis Comments HEMOGRAM Routine 10/22/2013 4:48 PM EDT Autoimmune hepatitis DIFFERENTIAL, AUTOMATED Routine 10/22/2013 4:48 PM EDT Autoimmune hepatitis CBC (WITH DIFF) Routine 10/22/2013 4:48 PM EDT Autoimmune hepatitis HEPATIC FUNCTION PANEL Routine 10/22/2013 4:48 PM EDT Autoimmune hepatitis documented in this encounter Results * Differential, Automated (10/22/2013 4:48 PM EDT) Neutrophil % 69.9 34.0 - 71.0 % CERNER MILLENNIUM Neutrophil Absolute 5.27 1.50 - 6.30 x10(3)/mcL CERNER MILLENNIUM Lymph % 22.3 19.0 - 53.0 % CERNER MILLENNIUM Lymphocytes Abs 1.7 1.0 - 3.6 x10(3)/mcL CERNER MILLENNIUM Monocyte % 6.8 4.0 - 13.0 % CERNER MILLENNIUM Monocyte Abs 0.5 0.2 - 1.0 x10(3)/mcL CERNER MILLENNIUM Eos % 0.8 0.0 - 7.0 % CERNER MILLENNIUM Eosinophils Abs 0.1 0.0 - 0.5 x10(3)/mcL CERNER MILLENNIUM Basophil % 0.1 0.0 - 2.0 % CERNER MILLENNIUM Baso Absolute 0.0 0.0 - 0.2 x10(3)/mcL CERNER MILLENNIUM Immature Gran % 0.10 0.00 - 0.66 % CERNER MILLENNIUM Comment: Immature granulocytes(IG's)percentage and absolute count will include metamyelocytes, myelocytes, and promyelocytes. Blood smears from CBCs yielding IG's will be scanned manually for concordance. If this scan disagrees with the automated IG or if promyelocytes are noted, a manual differential will be performed. Immature Gran Absolute 0.01 0.00 - 0.05 x10(3)/mcL CERNER MILLENNIUM Blood specimen (specimen) 10/22/2013 4:48 PM EDT 10/22/2013 4:53 PM EDT Narrative Resulting Agency Comment Spec In Lab Camilla Nava MD HEMATOLOGY ORDERABLE S CERJONAH LEEENNIUM * (ABNORMAL) Hemogram (10/22/2013 4:48 PM EDT) White Blood Cell 7.5 4.0 - 10.0 x10(3)/mc L CERNER MILLENNIUM Red Blood Cell 4.88 4.63 - 6.08 x10(6)/mc L CERNER MILLENNIUM Hemoglobin 15.9 13.7 - 17.5 gm/dL CERNER MILLENNIUM Hematocrit 44.4 40.0 - 51.0 % CERNER MILLENNIUM Mean Cell Volume 91.0 79.0 - 92.0 fL CERNER MILLENNIUM Mean Cell Hemoglobin 32.6(H) 25.6 - 32.2 pg CERNER MILLENNIUM Mean Cell Hemoglobin Concentration 35.8 32.0 - 36.5 gm/dL CERNER MILLENNIUM Platelet 236 145 - 370 x10(3)/mc L CERNER MILLENNIUM RDW Standard Deviation 43.3 35.0 - 46.0 fL CERNER MILLENNIUM RDW coefficient of variation 13.2 10.9 - 14.4 % CERNER MILLENNIUM Mean Platelet Volume 10.5 9.0 - 12.0 fL CERNER MILLENNIUM Blood specimen (specimen) 10/22/2013 4:48 PM EDT 10/22/2013 4:53 PM EDT Narrative Resulting Agency Comment Spec In Lab Camilla Nava MD HEMATOLOGY ORDERABLE S CERNER MILLENNIUM * (ABNORMAL) Hepatic Function Panel (10/22/2013 4:48 PM EDT) Protein, Total 7.8 6.4 - 8.3 gm/dL CERNER MILLENNIUM Albumin 4.7 3.2 - 5.2 gm/dL CERNER MILLENNIUM Aspartate Aminotransferase 28 0 - 39 unit/L CERNER MILLENNIUM Alanine Aminotransferase 47 0 - 55 unit/L CERNER MILLENNIUM Alkaline Phosphatase 125(H) 40 - 120 unit/L CERNER MILLENNIUM Bilirubin, Total 0.5 0.2 - 1.3 mg/dL CERNER MILLENNIUM Bilirubin, Direct 0.1 0.0 - 0.3 mg/dL CERNER MILLENNIUM Blood specimen (specimen) 10/22/2013 4:48 PM EDT 10/22/2013 4:53 PM EDT Narrative Resulting Agency Comment Spec In Lab Camilla Nava MD CHEMISTRY ORDERABLES CERJONAH MILLENNIUM documented in this encounter Visit Diagnoses Diagnosis Autoimmune hepatitis documented in this encounter Care Teams Educational Psychology Teacher Relationship Specialty Start Date End Date Yash Laguna MD PCP - General 03/17/10 02/14/14 documented as of this encounter
--- OUTSIDE RECORDS SUMMARY | 2024-02-12 14:19 | XMS_ITS | Encounter Summary ---
Author Organization [facility] [place] [address] Care Team Providers Care Channel Program Manager Name Role Phone Yash Laguna MD Primary Care Provider Mack mittal Encounter Details Date Type Department Care Team (Latest Contact Info) Description 01/18/2014 5:22 PM EDT - 01/18/2014 11:59 PM EDT Hospital [place] [phone] Camilla Nava MD [facility] GASTROENTEROLOGY [place] [phone] Autoimmune hepatitis Discharge Disposition: Home Social History [...] EDT Clinical Support Primary Care at [address] [phone] 03/12/2024 8:50 [place] [address] Camilla Nava MD [facility] GASTROENTEROLOGY [place], [place] [phone] 03/20/2024 8:00 AM EST Office [place] [address] Camilla Nava MD [facility] GASTROENTEROLOGY [place], [place] [phone] documented as of this encounter Procedures Procedure Name Priority Date/Time Associated Diagnosis Comments HEPATIC FUNCTION PANEL Routine 01/18/2014 5:27 PM EDT Autoimmune hepatitis documented in this encounter Results * Hepatic Function Panel (01/18/2014 5:27 PM EDT) Protein, Total 7.9 6.4 - 8.3 gm/dL CERNER MILLENNIUM Albumin 4.7 3.2 - 5.2 gm/dL CERNER MILLENNIUM Aspartate Aminotransferase 29 0 - 39 unit/L CERNER MILLENNIUM Alanine Aminotransferase 46 0 - 55 unit/L CERNER MILLENNIUM Alkaline Phosphatase 103 40 - 120 unit/L CERNER MILLENNIUM Bilirubin, Total 0.6 0.2 - 1.3 mg/dL CERNER MILLENNIUM Bilirubin, Direct 0.1 0.0 - 0.3 mg/dL CERNER MILLENNIUM Blood specimen (specimen) 01/18/2014 5:27 PM EDT 01/18/2014 5:33 PM EDT Narrative Resulting Agency Comment Spec In Lab Camilla Nava MD CHEMISTRY ORDERABLES [facility] documented in this encounter Visit Diagnoses Diagnosis Autoimmune hepatitis documented in this encounter Care Teams Channel Program Manager Relationship Specialty Start Date End Date Yash Laguna MD PCP - General 03/17/10 02/14/14 documented as of this encounter
--- OUTSIDE RECORDS SUMMARY | 2024-02-12 14:19 | XMS_ITS | Encounter Summary ---
Author Organization [facility] [place] [address] Care Team Providers Care Insole Tack Puller Hand Name Role Phone None Primary Care Provider Unavailabl e Encounter Details Date Type Department Care Team (Late st Contact Info) Description 03/20/2014 Notes [place] [address] Camilla Nava MD [facility] [place] [address] Social History Tobacco Use Types Packs/Day Years [...] Progress Notes * Camilla Nava MD - 03/20/2014 4:06 PM EST Electronic note sent to pt: Dear Mahamed, Liver tests improving, but still abnormal. I don't think we should decrease the entocort yet. Continue at 9mg/day. I also think we should increase the azathioprine to 100mg/day. Let me know if you have questions. Sincerely, Camilla Nava documented in this encounter Plan of Treatment Upcoming Encounters Date Type Department Care Team (Late st Contact Info) Description 02/13/2024 1:00 PM EDT Clinical Support Primary Care at [address] [address] 03/12/2024 8:50 AM [place] [address] Camilla Nava MD [facility] [place] [address] 03/20/2024 8:00 AM EST Office Visit [place] [address] Camilla Nava MD [facility] [place] [address] documented as of this encounter Visit Diagnoses Not on filedocumented in this encounter Care Teams Insole Tack Puller Hand Relationship Specialty Start Date End Date None None PCP - General 02/15/14 05/05/14 documented as of this encounter
--- OUTSIDE RECORDS SUMMARY | 2024-02-12 14:19 | XMS_ITS | Encounter Summary ---
Author Organization [facility] [place] [address] Care Team Providers Care Coagulation Operator Name Role Phone None Primary Care Provider Unavailabl e Encounter Details Date Type Department Care Team (Latest Contact Info) Description 04/22/2014 10:59 AM EST - 04/22/2014 11:59 PM EST Hospital Encounter Laboratory [facility] [address] [place] [phone] Camilla Nava MD [facility] [place] [address] Autoimmune hepatitis Discharge Disposition: Home Social History [...] EDT Clinical Support Primary Care at [address] [phone] 03/12/2024 8:50 AM [place] [address] Camilla Nava MD [facility] [place] [address] 03/20/2024 8:00 AM EST Office Visit [place] [phone] Camilla Nava MD [facility] GASTROENTEROLOGY [place], [place] [phone] documented as of this encounter Procedures Procedure Name Priority Date/Time Associated Diagnosis Comments HEMOGRAM Routine 04/22/2014 11:06 AM EST Autoimmune hepatitis DIFFERENTIAL, AUTOMATED Routine 04/22/2014 11:06 AM EST Autoimmune hepatitis CBC (WITH DIFF) Routine 04/22/2014 11:06 AM EST Autoimmune hepatitis HEPATIC FUNCTION PANEL Routine 04/22/2014 11:06 AM EST Autoimmune hepatitis documented in this encounter Results * Differential, Automated (04/22/2014 11:06 AM EST) Neutrophil % 71.5 % CERNER MILLENNIUM Neutrophil Absolute 5.72 1.50 - 6.30 x10(3)/mcL CERNER MILLENNIUM Lymph % 21.3 % CERNER MILLENNIUM Lymphocytes Abs 1.7 1.0 - 3.6 x10(3)/mcL CERNER MILLENNIUM Monocyte % 5.9 % CERNER MILLENNIUM Monocyte Abs 0.5 0.2 - 1.0 x10(3)/mcL CERNER MILLENNIUM Eos % 0.6 % CERNER MILLENNIUM Eosinophils Abs 0.0 0.0 - 0.5 x10(3)/mcL CERNER MILLENNIUM Basophil % 0.4 % CERNER MILLENNIUM Baso Absolute 0.0 0.0 [...] 0.05 x10(3)/mcL CERNER MILLENNIUM Blood specimen (specimen) 04/22/2014 11:06 AM EST 04/22/2014 11:17 AM EST Narrative Resulting Agency Comment Spec In Lab Camilla Nava MD HEMATOLOGY ORDERABLE S CERNER MILLENNIUM * (ABNORMAL) Hemogram (04/22/2014 11:06 AM EST) White Blood Cell 8.0 4.0 - 10.0 x10(3)/mc L CERNER MILLENNIUM Red Blood Cell 5.01 4.63 - 6.08 x10(6)/mc L CERNER MILLENNIUM Hemoglobin 15.8 13.7 - 17.5 gm/dL CERNER MILLENNIUM Hematocrit 46.2 40.0 - 51.0 % CERNER MILLENNIUM Mean Cell Volume 92.2(H) 79.0 - 92.0 fL CERNER MILLENNIUM Mean Cell Hemoglobin 31.5 25.6 - 32.2 pg CERNER MILLENNIUM Mean Cell Hemoglobin Concentration 34.2 32.0 - 36.5 gm/dL CERNER MILLENNIUM Platelet 226 145 - 370 x10(3)/mc L CERNER MILLENNIUM RDW Standard Deviation 45.8 35.0 - 46.0 fL CERNER MILLENNIUM RDW coefficient of variation 13.6 10.9 - 14.4 % CERNER MILLENNIUM Mean Platelet Volume 10.3 9.0 - 12.0 fL CERNER MILLENNIUM Blood specimen (specimen) 04/22/2014 11:06 AM EST 04/22/2014 11:17 AM EST Narrative Resulting Agency Comment Spec In Lab Camilla Nava MD HEMATOLOGY ORDERABLE S Performing Organization Address City/State/[facility] Co de Phone Number CERNER MILLENNIUM * (ABNORMAL) Hepatic Function Panel (04/22/2014 11:06 AM EST) Protein, Total 7.8 6.4 - 8.3 gm/dL CERNER MILLENNIUM Albumin 4.9 3.2 - 5.2 gm/dL CERNER MILLENNIUM Aspartate Aminotransferase 55(H) 0 - 39 unit/L CERNER MILLENNIUM Alanine Aminotransferase 140(H) 0 - 55 unit/L CERNER MILLENNIUM Alkaline Phosphatase 122(H) 40 - 120 unit/L CERNER MILLENNIUM Bilirubin, Total 0.3 0.2 - 1.3 mg/dL CERNER MILLENNIUM Bilirubin, Direct 0.1 0.0 - 0.3 mg/dL CERNER MILLENNIUM Blood specimen (specimen) 04/22/2014 11:06 AM EST 04/22/2014 11:17 AM EST Narrative Resulting Agency Comment Spec In Lab Camilla Nava MD CHEMISTRY ORDERABLES Performing Organization Address City/State/[facility] Co de Phone Number IRIS MILLENNIUM documented in this encounter Visit Diagnoses Diagnosis Autoimmune hepatitis documented in this encounter Care Teams Coagulation Operator Relationship Specialty Start Date End Date None None PCP - General 02/15/14 05/05/14 documented as of this encounter
--- OUTSIDE RECORDS SUMMARY | 2024-02-12 14:19 | XMS_ITS | Encounter Summary ---
Author Organization [facility] [place] [address] Care Team Providers Care Cnc Laser Operator Name Role Phone None Primary Care Provider Unavailabl e Encounter Details Date Type Department Care Team (Late st Contact Info) Description 03/06/2014 Orders [place] [phone] Camilla Nava MD [facility] [place] [place] [address] Abnormal liver enzymes Social History Tobacco Use Types Packs/Day Years [...] EDT Clinical Support Primary Care at [address] [phone] 03/12/2024 8:50 AM [place] [address] Camilla Nava MD [facility] [place] [address] 03/20/2024 8:00 AM EST Office Visit Gastroenterology at [facility] [place] [address] Camilla Nava MD [facility] [place] [address] documented as of this encounter Results * MRI cholangiopancreatography (03/18/2014 8:15 AM EST) Anatomical Region Laterality Modality Magnetic Resonan ce 03/18/2014 8:15 AM EST Narrative 03/18/2014 10:07 AM EST Examination MR Cholangiopancreatography Clinical History with ulcerative colitis ?? autoimmune hepatitis ?? flare of lft's ?? ?primary sclerosing cholangitis Comparison None Technique Multiplanar T2 weighted imaging with and without fat saturation. ??MRCP protocol performed. 3 dimensional reformatted images reconstructed on a separate workstation ?? Findings A possible area of mild focal stricturing is seen in a secondary biliary radicle in the left lobe of the liver (series 14, image 63). ??This is the only region where a possible stricture is seen. ??Otherwise, the intrahepatic biliary tree is nondistended and unremarkable. ??The common bile duct is normal in exhibits a normal caliber to the level of the ampulla. ??The pancreatic duct is normal. ??The gallbladder is unremarkable. ??No cholelithiasis. ??No gallbladder wall thickening. The signal from the liver is normal. No hepatomegaly. The spleen is borderline enlarged, measuring 13.3 cm in cranial-caudal dimension. ??No adenopathy. ??No ascites. ??The kidneys are normal. Impression ? 1. Solitary focal area of possible mild stricturing seen in a secondary branch of the left biliary tree; this may be artifactual given the absence of other findings. ??Remaining aspects of biliary tree are normal. ??Recommend interval follow up in 6-12 months. ? 2. Examination otherwise unremarkable. Procedure Note Harry Moreno MD - 03/18/2014 Examination MR Cholangiopancreatography Clinical History with ulcerative colitis autoimmune hepatitis flare of lft's ?primary sclerosing cholangitis Comparison None Technique Multiplanar T2 weighted imaging with and without fat saturation. MRCPprotocol performed. 3 dimensional reformatted images reconstructed on a separate workstation Findings A possible area of mild focal stricturing is seen in a secondary biliary radicle in the left lobe of the liver (series 14, image 63). This is theonly region where a possible stricture is seen. Otherwise, the intrahepaticbiliary tree is nondistended and unremarkable. The common bile duct is normal in exhibits a normal caliber to the level of the ampulla. The pancreaticduct is normal. The gallbladder is unremarkable. No cholelithiasis. Nogallbladder wall thickening. The signal from the liver is normal. No hepatomegaly. The spleen isborderline enlarged, measuring 13.3 cm in cranial-caudal dimension. No adenopathy.No ascites. The kidneys are normal. Impression 1. Solitary focal area of possible mild stricturing seen in asecondary branch of the left biliary tree; this may be artifactual given the absenceof other findings. Remaining aspects of biliary tree are normal. Recommend interval follow up in 6-12 months. 2. Examination otherwise unremarkable. Camilla Nava MD [facility] MRI ORDERABLES documented in this encounter Visit Diagnoses Diagnosis Abnormal liver enzymes Other nonspecific abnormal serum enzyme levels Abnormal liver enzymes Other nonspecific abnormal serum enzyme levels documented in this encounter Care Teams Cnc Laser Operator Relationship Specialty Start Date End Date None None PCP - General 02/15/14 05/05/14 documented as of this encounter
--- OUTSIDE RECORDS SUMMARY | 2024-02-12 14:19 | XMS_ITS | Encounter Summary ---
Author Organization [facility] Address [facility] [place] [address] Care Team Providers Care Lead Sustainability Specialist Name Role Phone Puja Tesfaye MD Primary Care Provider Encounter Details Date Type Department Care Team (Latest Contact Info) Description 06/20/2014 5:51 PM EST - 06/20/2014 11:59 PM EST Hospital [place] [phone] Camilla Nava MD [facility] GASTROENTEROLOGY [place] [phone] Autoimmune hepatitis Discharge Disposition: Home Social History [...] Progress Notes * Camilla Nava MD - 06/23/2014 9:34 AM ESTQuick Note: Dear Mahamed, Your labs show a slight increase in the ALT. Please continue on 6mg of entocort and 100mg of azathioprine and have labs repeated in 2 weeks. Sincerely, Camilla Nava MD Section of Gastroenterology & Hepatology [address] [place] [address] documented in this encounter Plan of Treatment Upcoming Encounters Date Type Department Care Team (Late st Contact Info) Description 02/13/2024 1:00 PM EDT Clinical Support Primary Care at [address] [phone] 03/12/2024 8:50 AM [place] [address] Camilla Nava MD [facility] [place] [address] 03/20/2024 8:00 AM EST Office Visit Gastroenterology at [place] [phone] Camilla Nava MD [facility] [place] [address] Scheduled Orders Name Type Priority Associated Diagnoses Orde r Schedule Hepatic Function Panel Lab Routine Autoimmune hepatitis 1 Occurrences starting 06/20/2014 until 06/20/2014 CBC (with Diff) Lab Routine Autoimmune hepatitis 1 Occurrences starting 06/20/2014 until 06/20/2014 documented as of this encounter Procedures Procedure Name Priority Date/Time Associated Diagnosis Comments HEMOGRAM Routine 06/20/2014 5:57 PM EST Autoimmune hepatitis DIFFERENTIAL, AUTOMATED Routine 06/20/2014 5:57 PM EST Autoimmune hepatitis CBC (WITH DIFF) Routine 06/20/2014 5:57 PM EST Autoimmune hepatitis HEPATIC FUNCTION PANEL Routine 06/20/2014 5:57 PM EST Autoimmune hepatitis documented in this encounter Results * Differential, Automated (06/20/2014 5:57 PM EST) Neutrophil % 66.3 % CERNER MILLENNIUM Neutrophil Absolute 5.09 1.50 - 6.30 x10(3)/mcL CERNER MILLENNIUM Lymph % 24.0 % CERNER MILLENNIUM Lymphocytes Abs 1.8 1.0 - 3.6 x10(3)/mcL CERNER MILLENNIUM Monocyte % 8.5 % CERNER MILLENNIUM Monocyte Abs 0.6 0.2 - 1.0 x10(3)/mcL CERNER MILLENNIUM Eos % 0.8 % CERNER MILLENNIUM Eosinophils Abs 0.1 0.0 [...] 0.05 x10(3)/mcL CERNER MILLENNIUM Blood specimen (specimen) 06/20/2014 5:57 PM EST 06/20/2014 6:00 PM EST Narrative Resulting Agency Comment Spec In Lab Camilla Nava MD HEMATOLOGY ORDERABLE S CERNER MILLENNIUM * (ABNORMAL) Hemogram (06/20/2014 5:57 PM EST) White Blood Cell 7.7 4.0 - 10.0 x10(3)/mc L CERNER MILLENNIUM Red Blood Cell 4.83 4.63 - 6.08 x10(6)/mc L CERNER MILLENNIUM Hemoglobin 16.0 13.7 - 17.5 gm/dL CERNER MILLENNIUM Hematocrit 44.7 40.0 - 51.0 % CERNER MILLENNIUM Mean Cell Volume 92.5(H) 79.0 - 92.0 fL CERNER MILLENNIUM Mean Cell Hemoglobin 33.1(H) 25.6 - 32.2 pg CERNER MILLENNIUM Mean Cell Hemoglobin Concentration 35.8 32.0 - 36.5 gm/dL CERNER MILLENNIUM Platelet 257 145 - 370 x10(3)/mc L CERNER MILLENNIUM RDW Standard Deviation 46.2(H) 35.0 - 46.0 fL CERNER MILLENNIUM RDW coefficient of variation 13.7 10.9 - 14.4 % CERNER MILLENNIUM Mean Platelet Volume 10.3 9.0 - 12.0 fL CERNER MILLENNIUM Blood specimen (specimen) 06/20/2014 5:57 PM EST 06/20/2014 6:00 PM EST Narrative Resulting Agency Comment Spec In Lab Camilla Nava MD HEMATOLOGY ORDERABLE S CERNER MILLENNIUM * (ABNORMAL) Hepatic Function Panel (06/20/2014 5:57 PM EST) Pathologist [facility] Protein, Total 8.1 6.4 - 8.3 gm/dL CERNER MILLENNIUM Albumin 5.2 3.2 - 5.2 gm/dL CERNER MILLENNIUM Aspartate Aminotransferase 35 0 - 39 unit/L CERNER MILLENNIUM Alanine Aminotransferase 56(H) 0 - 55 unit/L CERNER MILLENNIUM Alkaline Phosphatase 97 40 - 120 unit/L CERNER MILLENNIUM Bilirubin, Total 0.4 0.2 - 1.3 mg/dL CERNER MILLENNIUM Bilirubin, Direct 0.1 0.0 - 0.3 mg/dL CERNER MILLENNIUM Blood specimen (specimen) 06/20/2014 5:57 PM EST 06/20/2014 6:00 PM EST Narrative Resulting Agency Comment Spec In Lab Camilla Nava MD CHEMISTRY ORDERABLES [facility] documented in this encounter Visit Diagnoses Diagnosis Autoimmune hepatitis documented in this encounter Care Teams Lead Sustainability Specialist Relationship Specialty Start Date End Date Puja Tesfaye MD [facility] [address] [place] [place] [place] [address] PCP - General 05/06/14 01/22/18 documented as of this encounter
--- OUTSIDE RECORDS SUMMARY | 2024-02-12 14:19 | XMS_ITS | Encounter Summary ---
Author Organization [facility] [place] [address] Care Team Providers Care Analytical Technician Name Role Phone Adiel Mooney MD Primary Care Provider [phone] Reason for Visit * Reason Comments Medication Refill Encounter Details Date Type Department Care Team (Late st Contact Info) Description 06/18/2013 [place] [address] Camilla Nava MD [facility] [place] [address] Social History Tobacco Use Types Packs/Day Years [...] EDT Clinical Support Primary Care at [address] [address] 03/12/2024 8:50 AM [place] [address] Camilla Nava MD [facility] [place] [address] 03/20/2024 8:00 AM EST Office [place] [address] Camilla Nava MD [facility] [place] [address] documented as of this encounter Visit Diagnoses Not on filedocumented in this encounter Care Teams Analytical Technician Relationship Specialty Start Date End Date Adiel Mooney MD [facility] GENERAL [place] [address] PCP - General General Internal Medicine 09/20/18 documented as of this encounter
--- OUTSIDE RECORDS SUMMARY | 2024-02-12 14:19 | XMS_ITS | Encounter Summary ---
Author Organization [facility] [place] [address] Care Team Providers Care Personal Trainer Name Role Phone None Primary Care Provider Unavailabl e Encounter Details Date Type Department Care Team (Late st Contact Info) Description 02/21/2014 Telephone [place] [phone] Camilla Nava MD [facility] [place] [address] Social History Tobacco Use Types Packs/Day Years [...] Telephone Encounter - Camilla Nava MD - 02/21/2014 11:32 AM EDT I called pt with lab results: Results for MAHAMED REYES ( ) as of 02/21/2014 11:22 09/28/2013 16:57 Budesonide 9mg started 10/0210/22/2013 16:48 10/30/2013 17:33 11/13/2013 17:48 Budesonide 3mg 12/03/2013 16:49 12/25/2013 17:01 01/18/2014 17:27 Budesonide 3mg qod 02/15/2014 16:49 Bili, Direct 0.1 0.1 0.1 0.1 0.1 0.1 0.1 0.1 Alk Phos 149 (H) 125 (H) 121 (H) 107 120 102 103 182 (H) AST 37 28 28 27 37 25 29 49 (H) ALT 65 (H) 47 47 42 59 (H) 35 46 68 (H) Plan: Increase budesonide to 9mg/day. Repeat labs in 2 weeks. Continue imuran 75 mg/day. Consider MRCP if labs not responding to look for PSC overlap. documented in this encounter Plan of Treatment Upcoming Encounters Date Type Department Care Team (Late st Contact Info) Description 02/13/2024 1:00 PM EDT Clinical Support Primary Care at [address] [phone] 03/12/2024 8:50 AM [place] [address] Camilla Nava MD [facility] [place] [address] 03/20/2024 8:00 AM EST Office [place] [phone] Camilla Nava MD [facility] [place] [address] documented as of this encounter Visit Diagnoses Not on filedocumented in this encounter Care Teams Personal Trainer Relationship Specialty Start Date End Date None None PCP - General 02/15/14 05/05/14 documented as of this encounter
--- OUTSIDE RECORDS SUMMARY | 2024-02-12 14:19 | XMS_ITS | Encounter Summary ---
Author Organization [facility] [place] [address] Care Team Providers Care Storage Garage Manager Name Role Phone Yash Laguna MD Primary Care Provider Mack mittal Encounter Details Date Type Department Care Team (Late st Contact Info) Description 10/29/2013 Telephone [place] [address] Camilla Nava MD [facility] [place] [address] Social History Tobacco Use Types Packs/Day Years [...] Telephone Encounter - Camilla Nava MD - 10/29/2013 1:43 PM EDT Contacted pt with results of recent labs. LFT's improved, but still elevated. Pt self decreased entocort to 6mg/day one week ago. I suggest repeating labs this week to decide what to do with the dose. documented in this encounter Plan of Treatment Upcoming Encounters Date Type Department Care Team (Late st Contact Info) Description 02/13/2024 1:00 PM EDT Clinical Support Primary Care at [address] [address] 03/12/2024 8:50 [place] [phone] Camilla Nava MD [facility] [place] [address] 03/20/2024 8:00 AM EST Office [place] [phone] Camilla Nava MD [facility] [place] [address] documented as of this encounter Visit Diagnoses Not on filedocumented in this encounter Care Teams Storage Garage Manager Relationship Specialty Start Date End Date Yash Laguna MD PCP - General 03/17/10 02/14/14 documented as of this encounter
--- OUTSIDE RECORDS SUMMARY | 2024-02-12 14:19 | XMS_ITS | Encounter Summary ---
Author Organization [facility] [place] [address] Care Team Providers Care Tax Manager Cpa Name Role Phone None Primary Care Provider Unavailabl e Encounter Details Date Type Department Care Team (Late st Contact Info) Description 03/06/2014 10:45 AM EST - 03/06/2014 11:30 AM EST [place] [address] Camilla Nava MD [facility] [place] [address] COLONOSCOPY, DIAGNOSTIC (WRVU 3.26) Social History Tobacco [...] Sign Reading Time Taken Comments Blood Pressure 125/69 03/06/2014 11:46 AM EST Pulse 78 03/06/2014 11:46 AM EST Temperature 36.8 ??C (98.2 ??F) 03/06/2014 10:[address] Respiratory Rate 14 03/06/2014 11:46 AM EST Oxygen Saturation 96% 03/06/2014 11:46 AM EST Inhaled Oxygen Concentration - - Weight - - Height - - Body Mass Index - - documented in this encounter Discharge Instructions * Discharge Instructions* Abril Coronado RN - 03/06/2014 12:07 PM EST Colonoscopy What to expect after the procedure [...] often you need to be checked. Tuesday-Tuesday Clinic [phone] 8a-5p Same Day Endo [phone] 7a-8p Otherwise contact [phone] and ask to speak to the crtts occupational health nurse supervisor Follow up care is a nunez part [...] 06/19/2013 02/10/2015 documented as of this encounter H&P Notes * Camilla Nava MD - 03/06/2014 10:42 AM EST Gastroenterology and Hepatology Pre-Procedure History and Physical Exam Procedure: Colonoscopy: Indication: ulcerative colitis Patient Active Problem List Diagnosis Code ??? Hepatitis, autoimmune 571.42 ??? Ulcerative colitis 556.9 EXAM: HEENT: Airway examined, oropharynx clear Mallampati [...] EDT Clinical Support Primary Care at [address] [address] 03/12/2024 8:50 AM [place] [address] Camilla Nava MD [facility] [place] [address] 03/20/2024 8:00 AM EST Office [place] [address] Camilla Nava MD [facility] GASTROENTEROLOGY [place], [place] [phone] documented as of this encounter Procedures Procedure Name Priority Date/Time Associated Diagnosis Comments SPECIMEN TO PATHOLOGY Routine 03/06/2014 11:47 AM EST SPECIMEN TO PATHOLOGY Routine 03/06/2014 11:47 AM EST SPECIMEN TO PATHOLOGY Routine 03/06/2014 11:47 AM EST SPECIMEN TO PATHOLOGY Routine 03/06/2014 11:47 AM EST COLONOSCOPY, DIAGNOSTIC (WRVU 3.26) 03/06/2014 10:57 AM EST 2yr rescope COLONOSCOPY Routine 03/06/2014 10:42 AM EST documented in this encounter Results * Specimen to Pathology (surgical or derm) (03/06/2014 11:47 AM EST) AP Specimen 03/06/2014 11:4 7 AM EST 03/06/2014 11:47 AM EST Narrative IRIS HERNANDEZ - 03/06/2014 11:47 AM EST Specimen requisition ordered. ??Separate Pathology report to follow Camilla Nava MD PATHOLOGY/CYTOLOGY O RDERABLES [facility]IS [facility]EFFREYFORMERLY [facility] * Specimen to Pathology (surgical or derm) (03/06/2014 11:47 AM EST) AP Specimen 03/06/2014 11:4 7 AM EST 03/06/2014 11:47 AM EST Narrative IRIS HOYTIUM - 03/06/2014 11:47 AM EST Specimen requisition ordered. ??Separate Pathology report to follow Camilla Nava MD PATHOLOGY/CYTOLOGY O EVELIN Performing Organization Address City/State/[facility] Co de Phone Number [facility] * Specimen to Pathology (surgical or derm) (03/06/2014 11:47 AM EST) AP Specimen 03/06/2014 11:4 7 AM EST 03/06/2014 11:47 AM EST Narrative [facility] - 03/06/2014 11:47 AM EST Specimen requisition ordered. ??Separate Pathology report to follow Camilla Nava MD PATHOLOGY/CYTOLOGY O EVELIN Performing Organization Address City/[facility] Co de Phone Number [facility] * Specimen to Pathology (surgical or derm) (03/06/2014 11:47 AM EST) AP Specimen 03/06/2014 11:4 7 AM EST 03/06/2014 11:47 AM EST Narrative IRIS HOYTFORMERLY [facility] - 03/06/2014 11:47 AM EST Specimen requisition ordered. ??Separate Pathology report to follow Camilla Nava MD PATHOLOGY/CYTOLOGY O EVELIN Performing Organization Address City/State/[facility] Co de Phone Number [facility] * COLONOSCOPY (03/06/2014 10:42 AM EST) COLONOSCOPY [facility] Endoscopy Patient Name: [facility] ? Procedure Date: 03/06/2014 10:42 AM ? Date of : 1980 ? Age: 33 ? Order #: [id number] ? Procedure: ? Colonoscopy Indications: ? High risk colon cancer surveillance: ? Ulcerative left sided colitis Providers: ? Camilla Nava MD, Aayush Joshi RN, ? Vicki Yanes MD: ? Medicines: ? Midazolam 4 mg IV, Fentanyl 150 ? micrograms IV, [...] the ileum ? was normal. ? - Colitis is in remission. Recommendation: ?- Await pathology results. ? - Repeat colonoscopy in 2 years for ? surveillance. ? Camilla Nava MD 03/06/2014 11:37 AM This report has been signed electronically. Number of Addenda: 0 Note Initiated On: 03/06/2014 10:42 AM PROVATION 03/06/2014 10:4 2 AM EST Unknown GENERAL SURGICAL ORD ERABLES PROVATION documented in this encounter Visit Diagnoses Not on filedocumented in this encounter Administered Medications Inactive Administered Medications - up to 3 most recent administrations Medication Order MAR Action Action Date Dose Rate Site fentaNYL 50mcg/mL injection ONCE PRN, Starting on Tue03/06/14 at 1103, Until Tue03/06/14 at 1212, Intra-Operative (Intra-Procedure), Routine Given 03/06/2014 11:12 AM EST 50 mcg Given 03/06/2014 11:06 AM EST 50 mcg Given 03/06/2014 11:03 AM EST 50 mcg lactated ringers infusion 100 mL/hr, Intravenous, CONTINUOUS, Starting on Tue03/06/14 at 1045, Until Tue03/06/14 at 1212, Endoscopy (Day of Procedure) New Bag 03/06/2014 10:45 AM EST 100 mL/hr 100 mL/hr midazolam (PF) (VERSED) 1 mg/mL injection ONCE PRN, Starting on Tue03/06/14 at 1103, Until Tue03/06/14 at 1212, Intra-Operative (Intra-Procedure), Routine Given 03/06/2014 11:12 AM EST 1 mg Given 03/06/2014 11:06 AM EST 1 mg Given 03/06/2014 11:03 AM EST 2 mg ondansetron (ZOFRAN) injection ONCE PRN, Starting on Tue03/06/14 at 1103, Until Tue03/06/14 at 1212, Intra-Operative (Intra-Procedure), Routine Given 03/06/2014 11:03 AM EST 4 mg documented in this encounter Active and Recently Administered Medications Times are shown in EST. Continuous Medication Order 03/04/2014 03/05/2014 03/06/2014 lactated ringers infusion (CANCELED) 100 mL/hr, Intravenous, CONTINUOUS, Starting on Tue03/06/14 at 1045, Until Tue03/06/14 at 1212, Endoscopy (Day of Procedure) 1045 (New Bag - Prov ider: Ninfa Manrique RN) PRN Medication Order 03/04/2014 03/05/2014 03/06/2014 fentaNYL 50mcg/mL injection (CANCELED) ONCE PRN, Starting on Tue03/06/14 at 1103, Until Tue03/06/14 at 1212, Intra-Operative (Intra-Procedure), Routine 1103 (Given - Provid er: Aayush Joshi RN)1106 (Given - Provider: Aayush Joshi RN)1112 (Given - Provider: Aayush Joshi RN) midazolam (PF) (VERSED) 1 mg/mL injection (CANCELED) ONCE PRN, Starting on Tue03/06/14 at 1103, Until Tue03/06/14 at 1212, Intra-Operative (Intra-Procedure), Routine 1103 (Given - Provid er: Aayush Joshi RN)1106 (Given - Provider: Aayush Joshi RN)1112 (Given - Provider: Aayush Joshi RN) ondansetron (ZOFRAN) injection (CANCELED) ONCE PRN, Starting on Tue03/06/14 at 1103, Until Tue03/06/14 at 1212, Intra-Operative (Intra-Procedure), Routine 1103 (Given - Provid er: Aayush Joshi RN) documented in this encounter Care Teams Tax Manager Cpa Relationship Specialty Start Date End Date None None PCP - General 02/15/14 05/05/14 documented as of this encounter
--- OUTSIDE RECORDS SUMMARY | 2024-02-12 14:19 | XMS_ITS | Encounter Summary ---
Author Organization [facility] [place] [address] Care Team Providers Care Dryer Operator Name Role Phone None Primary Care Provider Unavailabl e Encounter Details Date Type Department Care Team (Late st Contact Info) Description 03/28/2014 Orders Only Gastroenterology at [facility] [place] [address] Camilla Nava MD [facility] [place] [address] Autoimmune hepatitis Social History Tobacco Use Types [...] Progress Notes * Camilla Nava MD - 03/28/2014 2:36 PM EST Mahamed, Please have labs done 04/03, 04/04 or 04/05. I will add the cbc to your orders. I am away next week and won't see the labs till I get back on 04/07. Please send a message after you get the labs and my nurse can respond to it. I will suggest decreasing to 6mg of entocort if the liver tests are normal. Sincerely, Camilla Nava MD documented in this encounter Plan of Treatment Upcoming Encounters Date Type Department Care Team (Late st Contact Info) Description 02/13/2024 1:00 PM EDT Clinical Support Primary Care at [address] [address] 03/12/2024 8:50 AM [place] [address] Camilla Nava MD [facility] [place] [address] 03/20/2024 8:00 AM EST Office [place] [phone] Camilla Nava MD [facility] [place] [address] documented as of this encounter Visit Diagnoses Diagnosis Autoimmune hepatitis documented in this encounter Care Teams Dryer Operator Relationship Specialty Start Date End Date None None PCP - General 02/15/14 05/05/14 documented as of this encounter
--- OUTSIDE RECORDS SUMMARY | 2024-02-12 14:19 | XMS_ITS | Encounter Summary ---
Author Organization [facility] [place] [address] Care Team Providers Care Casserole Preparer Name Role Phone None Primary Care Provider Unavailabl e Encounter Details Date Type Department Care Team (Latest Contact Info) Description 03/06/2014 12:31 PM EST - 03/06/2014 11:59 PM EST Hospital Encounter Laboratory [facility] [address] [place] [phone] Laz Longoria MD [facility] [address] Autoimmune hepatitis Discharge Disposition: Home Social History [...] EDT Clinical Support Primary Care at [address] [address] 03/12/2024 8:50 AM [place] [phone] aLz Longoria MD [facility] [place] [address] 03/20/2024 8:00 AM EST Office [place] [phone] Laz Longoria MD [facility] GASTROENTEROLOGY [place], [place] [phone] documented as of this encounter Procedures Procedure Name Priority Date/Time Associated Diagnosis Comments HEPATIC FUNCTION PANEL Routine 03/06/2014 12:40 PM EST Autoimmune hepatitis SURGICAL PATHOLOGY REPORT Routine 03/06/2014 11:47 AM EST documented in this encounter Results * (ABNORMAL) Hepatic Function Panel (03/06/2014 12:40 PM EST) Protein, Total 6.9 6.4 - 8.3 gm/dL CERNER MILLENNIUM Albumin 4.4 3.2 - 5.2 gm/dL CERNER MILLENNIUM Aspartate Aminotransferase 32 0 - 39 unit/L CERNER MILLENNIUM Alanine Aminotransferase 64(H) 0 - 55 unit/L CERNER MILLENNIUM Alkaline Phosphatase 122(H) 40 - 120 unit/L CERNER MILLENNIUM Bilirubin, Total 0.6 0.2 - 1.3 mg/dL CERNER MILLENNIUM Bilirubin, Direct 0.1 0.0 - 0.3 mg/dL CERNER MILLENNIUM Blood specimen (specimen) 03/06/2014 12:40 PM EST 03/06/2014 12:49 PM EST Narrative Resulting Agency Comment Spec In Lab Laz Longoria MD CHEMISTRY ORDERABLES Performing Organization Address City/State/[facility] Co de Phone Number [facility] * Surgical Pathology Report (03/06/2014 11:47 AM EST) Final Diagnosis ? [facility] ? Provider: ?? LAZ LONGORIA ? Pt. Name: ?? MAHAMED DALE ? Acc #: ?[id number] ?Pt. ? Col Date: ?? 03/06/2014 ?/Sex: ?1980,(33 years),Male ? Rec Date: ?? 03/06/2014 ?LOC: ?4L ? SURGICAL PATHOLOGY ? ---Pathologic Diagnosis--- ? A - Cecum and ascending colon, biopsy: ? Colonic mucosa, negative for diagnostic abnormality. ? B - Transverse colon, biopsy: ? Colonic mucoas with mild architecural dissaray, negative for dysplasia. ? C - Descending colon, biopsy: ? Colonic mucoas with mild architecural dissaray, negative for dysplasia. ? D - Rectosigmoid colon, biopsy: ? Colonic mucosa, negative for diagnostic abnormality. ? CR-0, CR-PX ? 03/08/14 ? JLH ? 03/08/14 Verified by: ? Elijah Cortes MD ? Pathologist ? (Electronic Signature) ? The attending pathologist whose signature appears on this report has ? reviewed all diagnostic slides and has edited the gross and/or ? microscopic portion of the report in rendering the final pathologic ? diagnosis. ? ---Gross Description--- ? A - Labeled/Fixative : Biopsies of cecum and ascending, formalin. ? Quantity/Size: Multiple, 0.2-0.4 cm. ? Tissue Description: Soft, yellow-swenson tissue. ? Sections/Process ing: (T3) ? B - Labeled/Fixative : Biopsy transverse, formalin. ? Quantity/Size: Multiple, averaging 0.4 cm. ? Tissue Description: Soft, yellow-swenson tissue. ? Sections/Process ing: (T3) ? C - Labeled/Fixative : Biopsy descending colon, formalin. ? Quantity/Size: Multiple, ranging from 0.2-0.3 cm. ? Tissue Description: Soft, yellow-swenson tissue. ? Sections/Process ing: (T3) ? D - Labeled/Fixative : Biopsies rectosigmoid, formalin. ? Quantity/Size: Multiple, 0.2-0.4 cm. ? Tissue Description: Soft, swenson-pink tissue. ? [facility] ? Provider: ?? LAZ LONGORIA ? Pt. Name: ?? MAHAMED DALE ? Acc #: ?[id number] ?Pt. ? Col Date: ?? 03/06/2014 ?/Sex: ?1980,(33 years),Male ? Rec Date: ?? 03/06/2014 ?LOC: ?4L ? SURGICAL PATHOLOGY ? Sections/Process ing: (T2) ??ejr ? ---Clinical Information--- ? Specimen Submitted: ? A - Biopsies cecum and ascending ? B - Biopsies transverse ? C - Biopsies descending colon ? D - Biopsies recto-sigmoid ? Clinical History: ? Patient with ulcerative colitis in remission, rule out dysplasia ? Clinical Diagnosis: ? Same 03/08/2014 5:00 PM EST [facility] GI Biopsy 03/06/2014 11:4 7 AM EST 03/06/2014 11:47 AM EST GI Biopsy 03/06/2014 11:4 7 AM EST 03/06/2014 11:47 AM EST GI Biopsy 03/06/2014 11:4 7 AM EST 03/06/2014 11:47 AM EST GI Biopsy 03/06/2014 11:4 7 AM EST 03/06/2014 11:47 AM EST Laz Longoria MD PATHOLOGY/CYTOLOGY O RDERABLES Performing Organization Address City/State/[facility] Co de Phone Number IRIS MILLENNIUM [facility] [place] [phone] documented in this encounter Visit Diagnoses Diagnosis Autoimmune hepatitis documented in this encounter Care Teams Casserole Preparer Relationship Specialty Start Date End Date None None PCP - General 02/15/14 05/05/14 documented as of this encounter
--- OUTSIDE RECORDS SUMMARY | 2024-02-12 14:19 | XMS_ITS | Encounter Summary ---
Author Organization [facility] [place] [address] Care Team Providers Care Tool Maker Name Role Phone None Primary Care Provider Unavailabl e Encounter Details Date Type Department Care Team (Latest Contact Info) Description 03/20/2014 6:50 AM EST - 03/20/2014 11:59 PM EST Hospital Encounter Laboratory [facility] [address] [place] [phone] Camilla Nava MD [facility] [place] [address] Autoimmune hepatitis Discharge Disposition: Home Social History [...] EDT Clinical Support Primary Care at [address] [address] 03/12/2024 8:50 [place] [address] Camilla Nava MD [facility] [place] [address] 03/20/2024 8:00 AM EST Office [place] [phone] Camilla Nava MD [facility] GASTROENTEROLOGY [place], [place] [phone] documented as of this encounter Procedures Procedure Name Priority Date/Time Associated Diagnosis Comments HEMOGRAM Routine 03/20/2014 6:58 AM EST Autoimmune hepatitis DIFFERENTIAL, AUTOMATED Routine 03/20/2014 6:58 AM EST Autoimmune hepatitis CBC (WITH DIFF) Routine 03/20/2014 6:58 AM EST Autoimmune hepatitis HEPATIC FUNCTION PANEL Routine 03/20/2014 6:56 AM EST Autoimmune hepatitis documented in this encounter Results * Differential, Automated (03/20/2014 6:58 AM EST) Neutrophil % 67.4 % CERNER MILLENNIUM Neutrophil Absolute 4.57 1.50 - 6.30 x10(3)/mcL CERNER MILLENNIUM Lymph % 23.2 % CERNER MILLENNIUM Lymphocytes Abs 1.6 1.0 - 3.6 x10(3)/mcL CERNER MILLENNIUM Monocyte % 8.3 % CERNER MILLENNIUM Monocyte Abs 0.6 0.2 [...] 0.05 x10(3)/mcL CERNER MILLENNIUM Blood specimen (specimen) 03/20/2014 6:58 AM EST 03/20/2014 7:02 AM EST Narrative Resulting Agency Comment Spec In Lab Camilla Nava MD HEMATOLOGY ORDERABLE S CERNER MILLENNIUM * Hemogram (03/20/2014 6:58 AM EST) White Blood Cell 6.8 4.0 - 10.0 x10(3)/mcL CERNER MILLENNIUM Red Blood Cell 4.90 4.63 - 6.08 x10(6)/mcL CERNER MILLENNIUM Hemoglobin 15.8 13.7 - 17.5 gm/dL CERNER MILLENNIUM Hematocrit 44.3 40.0 - 51.0 % CERNER MILLENNIUM Mean Cell Volume 90.4 79.0 - 92.0 fL CERNER MILLENNIUM Mean Cell Hemoglobin 32.2 25.6 - 32.2 pg CERNER MILLENNIUM Mean Cell Hemoglobin Concentration 35.7 32.0 - 36.5 gm/dL CERNER MILLENNIUM Platelet 210 145 - 370 x10(3)/mcL CERNER MILLENNIUM RDW Standard Deviation 43.9 35.0 - 46.0 fL CERNER MILLENNIUM RDW coefficient of variation 13.4 10.9 - 14.4 % CERNER MILLENNIUM Mean Platelet Volume 10.2 9.0 - 12.0 fL CERNER MILLENNIUM Blood specimen (specimen) 03/20/2014 6:58 AM EST 03/20/2014 7:02 AM EST Narrative Resulting Agency Comment Spec In Lab Camilla Nava MD HEMATOLOGY ORDERABLE S Performing Organization Address [facility] Co de Phone Number CERJONAH MILLENNIUM * (ABNORMAL) Hepatic Function Panel (03/20/2014 6:56 AM EST) Protein, Total 7.4 6.4 - 8.3 gm/dL CERNER MILLENNIUM Albumin 4.6 3.2 - 5.2 gm/dL CERNER MILLENNIUM Aspartate Aminotransferase 39 0 - 39 unit/L CERNER MILLENNIUM Alanine Aminotransferase 66(H) 0 - 55 unit/L CERNER MILLENNIUM Alkaline Phosphatase 115 40 - 120 unit/L CERNER MILLENNIUM Bilirubin, Total 0.4 0.2 - 1.3 mg/dL CERNER MILLENNIUM Bilirubin, Direct 0.1 0.0 - 0.3 mg/dL CERNER MILLENNIUM Blood specimen (specimen) 03/20/2014 6:56 AM EST 03/20/2014 7:02 AM EST Narrative Resulting Agency Comment Spec In Lab Camilla Nava MD CHEMISTRY ORDERABLES Performing Organization Address [facility] Co de Phone Number IRIS LEEENNIUM documented in this encounter Visit Diagnoses Diagnosis Autoimmune hepatitis documented in this encounter Care Teams Tool Maker Relationship Specialty Start Date End Date None None PCP - General 02/15/14 05/05/14 documented as of this encounter
--- OUTSIDE RECORDS SUMMARY | 2024-02-12 14:19 | XMS_ITS | Encounter Summary ---
Author Organization [facility] [place] [address] Care Team Providers Care Sample Preparation Supervisor Name Role Phone Adiel Mooney MD Primary Care Provider [phone] Reason for Visit * Reason Comments Medication Refill Encounter Details Date Type Department Care Team (Late st Contact Info) Description 09/07/2013 [place] [address] Camilla Nava MD [facility] [place] [address] Social History Tobacco Use Types [...] EDT Clinical Support Primary Care at [address] [address] 03/12/2024 8:50 AM [place] [address] Camilla Nava MD [facility] [place] [address] 03/20/2024 8:00 AM EST Office Visit [place] [address] Camilla Nava MD [facility] [place] [address] documented as of this encounter Visit Diagnoses Not on filedocumented in this encounter Care Teams Sample Preparation Supervisor Relationship Specialty Start Date End Date Adiel Mooney MD [facility] [place] [address] PCP - General General Internal Medicine 09/20/18 documented as of this encounter
--- OUTSIDE RECORDS SUMMARY | 2024-02-12 14:19 | XMS_ITS | Encounter Summary ---
Author Organization [facility] [place] [address] Care Team Providers Care Bryologist Name Role Phone Kalen Laguna MD Primary Care Provider Mack mittal Reason for Visit * Reason Comments Follow-up Encounter Details Date Type Department Care Team (Late st Contact Info) Description 10/02/2013 11:00 AM EDT Follow-Up [place] [phone] Laz Longoria MD [facility] [place] [address] Autoimmune hepatitis (Primary Dx) Discharge Disposition: Home Social History Tobacco Use [...] Sign Reading Time Taken Comments Blood Pressure 142/76 10/02/2013 10:59 AM EDT Pulse 79 10/02/2013 10:59 AM EDT Temperature - - Respiratory Rate - - Oxygen Saturation - - Inhaled Oxygen Concentration - - Weight 84.1 kg (185 lb 8 oz) 10/02/2013 10:59 AM EDT Height 182.9 cm (6') 10/02/2013 10:59 AM EDT Body Mass Index 25.16 10/02/2013 10:59 AM EDT documented in this encounter Progress Notes * Laz Longoria MD - 10/02/2013 11:26 AM EDT Gastoenterology & Hepatology Follow Up Note Provider: LAZ LONGORIA MD Gender: male : 1980 Referring Physician/Primary Care Physician: KALEN LAGUNA MD Problem List: 1. Autoimmune hepatitis diagnosed [...] LFT rise 08/2013, treated with entocort 9mg/day 2. Ulcerative colitis quiescent but was likely pancolitis diagnosed 1994, 1 major flare 2000 treated with prednisone maintained on asacol 1600mg bid folic acid aza (for AIH) last colonoscopy 01/2013 normal; normal biopsies, no dysplasia Medications: Outpatient Prescriptions Marked as Taking for the 10/02/13 encounter (Follow-Up) with Laz Longoria MD Medication Sig Dispense Refill ??? folic acid (FOLVITE) 1 mg tablet TAKE 1 TABLET BY MOUTH DAILY 90 tablet 3 ??? azaTHIOprine (IMURAN) 50 mg tablet TAKE 1 AND 1/2 TABLETS BY MOUTH DAILY 135 tablet 3 ??? Mesalamine (APRISO) 0.375 gram Cp24 Take 4 capsules by mouth daily. 360 capsule 4 ADR/ALLERGIES: Allergies Allergen Reactions ??? Sulfa (Sulfonamide Antibiotics) Rash Interval History: Mahamed Dale is a 33 y.o. male who presents for urgent visit for rise in lft's. He had routine labs done last week and lft's were elevated (see below). He has had a couple of colds recently, but nonew medications. He feels well otherwise. There has been no recurrence of colitis symptoms. VITAL SIGNS BP 142/76 Pulse 79 Ht 182.9 cm (6') Wt 84.142 kg (185 lb 8 oz) BMI 25.15 kg/m2 Physical Exam: appears well, in no distress. Results for MAHAMED DALE ( ) as of 10/02/2013 11:24 Ref. Range 04/27/2012 17:22 2012 13:07 07/14/2012 17:49 04/04/2013 17:13 09/28/2013 16:57 Albumin Latest Range: 3.2-5.2 gm/dL 4.9 4.8 4.9 4.7 4.7 Total Bilirubin Latest Range: 0.2-1.3 mg/dL 0.4 0.4 0.4 0.3 0.4 Bili, Direct Latest Range: 0.0-0.3 mg/dL 0.1 0.1 0.1 0.1 0.1 Alk Phos Latest Range: 40-120 unit/L 84 99 104 109 149 (H) AST Latest Range: 0-39 unit/L 27 34 25 25 37 ALT Latest Range: 0-55 unit/L 39 64 (H) 28 29 65 (H) Assessment/Plan: 33 year old male with UC and autoimmune hepatitis who appears to be having a flare of autoimmune hepatitis. Elevated alk phos is new and makes me concerned about possible overlap with PSC. For now will treat at [facility] flare, if he does not respond appropriately then we will get an MRCP and possibly liver biopsy. Plan: Continue azathioprine 75mg/day Start budesonide 9mg/day, lft's 2 weeks later, if normal go to 6mg/day, etc I will contact him after next set of lft's. UC is in remission- for now continue current therapy, will discuss tapering off mesalamine next time; colo in 2015 Greater than 25 minutes of this 30minute visit was spent in counseling and discussion. Laz Longoria MD Section of Gastroenterology & Hepatology [address] [place], [place] [id number] Copy: KALEN LAGUNA MD documented in this encounter Plan of Treatment Upcoming Encounters Date Type Department Care Team (Late st Contact Info) Description 02/13/2024 1:00 PM EDT Clinical Support Primary Care at [address] [address] 03/12/2024 8:50 AM EST [place] [address] Laz Longoria MD [facility] [place] [address] 03/20/2024 8:00 AM EST Office Visit [place] [phone] Laz Longoria MD [facility] [place] [address] documented as of this encounter Visit Diagnoses Diagnosis Autoimmune hepatitis- Primary documented in this encounter Care Teams Bryologist Relationship Specialty Start Date End Date Kalen Laguna MD PCP - General 03/17/10 02/14/14 documented as of this encounter
--- OUTSIDE RECORDS SUMMARY | 2024-02-12 14:19 | XMS_ITS | Encounter Summary ---
Author Organization [facility] [place] [address] Care Team Providers Care Clinical Nutrition Manager Name Role Phone None Primary Care Provider Unavailabl e Encounter Details Date Type Department Care Team (Latest Contact Info) Description 03/06/2014 10:01 AM EST - 03/06/2014 12:22 PM EST Hospital Encounter [place] [address] Camilla Nava MD [facility] [place] [address] Discharge Disposition: Home Social History Tobacco Use [...] you need to be checked. Tuesday-Tuesday Clinic [phone] 8a-5p Same Day Endo [phone] 7a-8p Otherwise contact [phone] and ask to speak to the aircraft lay out worker assistant front end manager Follow up care is a nunez part [...] EDT Clinical Support Primary Care at [address] [address] 03/12/2024 8:50 AM EST [place] [address] Camilla Nava MD [facility] [place] [address] 03/20/2024 8:00 AM EST Office Visit [place] [address] Camilla Nava MD [facility] [place] [address] documented as of this encounter Procedures Procedure [...] follow Camilla Nava MD PATHOLOGY/CYTOLOGY O RDERABLES [facility] * Specimen to Pathology (surgical or derm) (03/06/2014 11:47 AM EST) AP Specimen 03/06/2014 11:4 7 AM EST 03/06/2014 11:47 AM EST Narrative [facility] - 03/06/2014 11:47 AM EST Specimen requisition ordered. ??Separate Pathology report to follow Camilla Nava MD PATHOLOGY/CYTOLOGY O RDKAYODE Performing Organization Address City/[facility] Co de Phone Number [facility] * Specimen to Pathology (surgical or derm) (03/06/2014 11:47 AM EST) AP Specimen 03/06/2014 11:4 7 AM EST 03/06/2014 11:47 AM EST Narrative [facility] - 03/06/2014 11:47 AM EST Specimen requisition ordered. ??Separate Pathology report to follow Camilla Nava MD PATHOLOGY/CYTOLOGY O EVELIN Performing Organization Address [facility] Co de Phone Number [facility] * Specimen to Pathology (surgical or derm) (03/06/2014 11:47 AM EST) AP Specimen 03/06/2014 11:4 7 AM EST 03/06/2014 11:47 AM EST Narrative [facility] - 03/06/2014 11:47 AM EST Specimen requisition ordered. ??Separate Pathology report to follow Camilla Nava MD PATHOLOGY/CYTOLOGY O RDKAYODE Performing Organization Address City/[facility] Co de Phone Number [facility] * COLONOSCOPY (03/06/2014 10:42 AM EST) COLONOSCOPY [facility] Endoscopy Patient Name: [facility] ? Procedure Date: 03/06/2014 10:42 AM ? Date of : 1980 ? Age: 33 ? Order #: [id number] ? Procedure: ? Colonoscopy Indications: ? High [...] 10:45 AM EST 100 mL/hr 100 mL/hr documented in this encounter Active and Recently Administered Medications Times are shown in EST. Continuous Medication Order 03/04/2014 03/05/2014 03/06/2014 lactated ringers infusion (CANCELED) 100 mL/hr, Intravenous, CONTINUOUS, Starting on Tue03/06/14 at 1045, Until Tue03/06/14 at 1212, Endoscopy (Day of Procedure) 1045 (New Bag - Prov ider: Ninfa Manrique, TAHMINA) PRN Medication Order 03/04/2014 03/05/2014 03/06/2014 [id number] [...] RN) documented in this encounter Care Teams Clinical Nutrition Manager Relationship Specialty Start Date End Date None None PCP - General 02/15/14 05/05/14 documented as of this encounter
--- OUTSIDE RECORDS SUMMARY | 2024-02-12 14:19 | XMS_ITS | Encounter Summary ---
Author Organization [facility] [place] [address] Care Team Providers Care Supervisor Steffen House Name Role Phone Yash Laguna MD Primary Care Provider Mack mittal Encounter Details Date Type Department Care Team (Latest Contact Info) Description 09/28/2013 4:50 PM EDT - 09/28/2013 11:59 PM EDT [place] [phone] Camilla Nava MD [facility] [place] [address] Autoimmune hepatitis Discharge Disposition: Home Social History [...] End Date folic acid (FOLVITE) 1 mg tablet TAKE [...] EDT Clinical Support Primary Care at [address] [phone] 03/12/2024 8:50 [place] [phone] Camilla Nava MD [facility] [place] [address] 03/20/2024 8:00 AM EST Office [place] [address] Camilla Nava MD [facility] [place] [address] documented as of this encounter Procedures Procedure Name Priority Date/Time Associated Diagnosis Comments HEMOGRAM Routine 09/28/2013 4:57 PM EDT Autoimmune hepatitis DIFFERENTIAL, AUTOMATED Routine 09/28/2013 4:57 PM EDT Autoimmune hepatitis CBC (WITH DIFF) Routine 09/28/2013 4:57 PM EDT Autoimmune hepatitis HEPATIC FUNCTION PANEL Routine 09/28/2013 4:57 PM EDT Autoimmune hepatitis documented in this encounter Results * (ABNORMAL) Differential, Automated (09/28/2013 4:57 PM EDT) Neutrophil % 71.3(H) 34.0 - 71.0 % CERNER MILLENNIUM Neutrophil Absolute 6.79(H) 1.50 - 6.30 x10(3)/mc L CERNER MILLENNIUM Lymph % 18.6(L) 19.0 - 53.0 % CERNER MILLENNIUM Lymphocytes Abs 1.8 1.0 - 3.6 x10(3)/mc L CERNER MILLENNIUM Monocyte % 8.2 4.0 - 13.0 % CERNER MILLENNIUM Monocyte Abs 0.8 0.2 - 1.0 x10(3)/mc L CERNER MILLENNIUM Eos % 1.4 0.0 - 7.0 % CERNER MILLENNIUM Eosinophils Abs 0.1 0.0 - 0.5 x10(3)/mc L CERNER MILLENNIUM Basophil % 0.3 0.0 - 2.0 % CERNER MILLENNIUM Baso Absolute 0.0 0.0 - 0.2 x10(3)/mc L CERNER MILLENNIUM Immature Gran % 0.20 0.00 - 0.66 % CERNER MILLENNIUM Comment: Immature granulocytes(IG's)percentage and absolute count will include metamyelocytes, myelocytes, and promyelocytes. Blood smears from CBCs yielding IG's will be scanned manually for concordance. If this scan disagrees with the automated IG or if promyelocytes are noted, a manual differential will be performed. Immature Gran Absolute 0.02 0.00 - 0.05 x10(3)/mc L CERNER MILLENNIUM Blood specimen (specimen) 09/28/2013 4:57 PM EDT 09/28/2013 5:00 PM EDT Narrative Resulting Agency Comment Spec In Lab Camilla Nava MD HEMATOLOGY ORDERABLE S [facility] * Hemogram (09/28/2013 4:57 PM EDT) White Blood Cell 9.5 4.0 - 10.0 x10(3)/mcL CERNER MILLENNIUM Red Blood Cell 4.86 4.63 - 6.08 x10(6)/mcL CERNER MILLENNIUM Hemoglobin 15.5 13.7 - 17.5 gm/dL CERNER MILLENNIUM Hematocrit 43.7 40.0 - 51.0 % CERNER MILLENNIUM Mean Cell Volume 89.9 79.0 - 92.0 fL CERNER MILLENNIUM Mean Cell Hemoglobin 31.9 25.6 - 32.2 pg CERNER MILLENNIUM Mean Cell Hemoglobin Concentration 35.5 32.0 - 36.5 gm/dL CERNER MILLENNIUM Platelet 251 145 - 370 x10(3)/mcL CERNER MILLENNIUM RDW Standard Deviation 42.9 35.0 - 46.0 fL CERNER MILLENNIUM RDW coefficient of variation 13.1 10.9 - 14.4 % CERNER MILLENNIUM Mean Platelet Volume 10.5 9.0 - 12.0 fL CERNER MILLENNIUM Blood specimen (specimen) 09/28/2013 4:57 PM EDT 09/28/2013 5:00 PM EDT Narrative Resulting Agency Comment Spec In Lab Camilla Nava MD HEMATOLOGY ORDERABLE S IRIS LEE[facility]UM * (ABNORMAL) Hepatic Function Panel (09/28/2013 4:57 PM EDT) Protein, Total 7.8 6.4 - 8.3 gm/dL CERNER MILLENNIUM Albumin 4.7 3.2 - 5.2 gm/dL CERNER MILLENNIUM Aspartate Aminotransferase 37 0 - 39 unit/L CERNER MILLENNIUM Alanine Aminotransferase 65(H) 0 - 55 unit/L CERNER MILLENNIUM Alkaline Phosphatase 149(H) 40 - 120 unit/L CERNER MILLENNIUM Bilirubin, Total 0.4 0.2 - 1.3 mg/dL CERNER MILLENNIUM Bilirubin, Direct 0.1 0.0 - 0.3 mg/dL CERNER MILLENNIUM Blood specimen (specimen) 09/28/2013 4:57 PM EDT 09/28/2013 5:00 PM EDT Narrative Resulting Agency Comment Spec In Lab Camilla Nava MD CHEMISTRY ORDERABLES IRIS HOYTIUM documented in this encounter Visit Diagnoses Diagnosis Autoimmune hepatitis documented in this encounter Care Teams Supervisor Steffen House Relationship Specialty Start Date End Date Yash Laguna MD PCP - General 03/17/10 02/14/14 documented as of this encounter
--- OUTSIDE RECORDS SUMMARY | 2024-02-12 14:19 | XMS_ITS | Encounter Summary ---
Author Organization [facility] [place] [address] Care Team Providers Care Tester Compressed Gases Name Role Phone Yash Laguna MD Primary Care Provider Mack mittal Encounter Details Date Type Department Care Team (Late st Contact Info) Description 07/16/2012 Notes [place] [address] Camilla Nava MD [facility] [place] [address] Social History Tobacco Use Types Packs/Day Years [...] Progress Notes * Camilla Nava MD - 07/16/2012 10:32 AM EDT Dear Mahamed, Your labs are back to normal. I think you need to stay on the 75mg of imuran. Let me know if you have any questions. Sincerely, Camilla Nava MD Section of Gastroenterology & Hepatology [address] [place] [phone] Recent Results (from the past 72 hour(s)) HEPATIC FUNCTION PANEL Component Value Range Total Protein 8.1 6.4 - 8.3 gm/dL Albumin 4.9 3.2 - 5.2 gm/dL AST 25 0 - 39 unit/L ALT 28 0 - 55 unit/L Alk Phos 104 40 - 120 unit/L Total Bilirubin 0.4 0.2 - 1.3 mg/dL Bili, Direct 0.1 0.0 - 0.3 mg/dL documented in this encounter Plan of Treatment Upcoming Encounters Date Type Department Care Team (Late st Contact Info) Description 02/13/2024 1:00 PM EDT Clinical Support Primary Care at [address] [address] 03/12/2024 8:50 AM [place] [address] Camilla Nava MD [facility] [place] [address] 03/20/2024 8:00 AM EST Office [place] [address] Camilla Nava MD [facility] [place] [address] documented as of this encounter Visit Diagnoses Not on filedocumented in this encounter Care Teams Tester Compressed Gases Relationship Specialty Start Date End Date Yash Laguna MD PCP - General 03/17/10 02/14/14 documented as of this encounter
--- OUTSIDE RECORDS SUMMARY | 2024-02-12 14:19 | XMS_ITS | Encounter Summary ---
Author Organization [facility] [place] [address] Care Team Providers Care Machine Heel Seat Fitter Name Role Phone Yash Laguna MD Primary Care Provider Mack mittal Encounter Details Date Type Department Care Team (Latest Contact Info) Description 10/30/2013 5:28 PM EDT - 10/30/2013 11:59 PM EDT Hospital [place] [phone] Camilla Nava MD [facility] GASTROENTEROLOGY [place] [phone] Autoimmune hepatitis Discharge Disposition: Home Social History [...] EDT Clinical Support Primary Care at [address] [address] 03/12/2024 8:50 AM [place] [address] Camilla Nava MD [facility] GASTROENTEROLOGY [place], [place] [phone] 03/20/2024 8:00 AM EST Office [place] [address] Camilla Nava MD [facility] GASTROENTEROLOGY [place], [place] [phone] documented as of this encounter Procedures Procedure Name Priority Date/Time Associated Diagnosis Comments HEPATIC FUNCTION PANEL Routine 10/30/2013 5:33 PM EDT Autoimmune hepatitis documented in this encounter Results * (ABNORMAL) Hepatic Function Panel (10/30/2013 5:33 PM EDT) Protein, Total 7.8 6.4 - 8.3 gm/dL CERNER MILLENNIUM Albumin 5.0 3.2 - 5.2 gm/dL CERNER MILLENNIUM Aspartate Aminotransferase 28 0 - 39 unit/L CERNER MILLENNIUM Alanine Aminotransferase 47 0 - 55 unit/L CERNER MILLENNIUM Alkaline Phosphatase 121(H) 40 - 120 unit/L CERNER MILLENNIUM Bilirubin, Total 0.4 0.2 - 1.3 mg/dL CERNER MILLENNIUM Bilirubin, Direct 0.1 0.0 - 0.3 mg/dL CERNER MILLENNIUM Blood specimen (specimen) 10/30/2013 5:33 PM EDT 10/30/2013 5:37 PM EDT Narrative Resulting Agency Comment Spec In Lab Camilla Nava MD CHEMISTRY ORDERABLES Performing Organization Address City/State/[facility] Co in Phone Number [facility] documented in this encounter Visit Diagnoses Diagnosis Autoimmune hepatitis documented in this encounter Care Teams Machine Heel Seat Fitter Relationship Specialty Start Date End Date Yash Laguna MD PCP - General 03/17/10 02/14/14 documented as of this encounter
--- OUTSIDE RECORDS SUMMARY | 2024-02-12 14:19 | XMS_ITS | Encounter Summary ---
Author Organization [facility] [place] [address] Care Team Providers Care Forecast Analyst Name Role Phone Yash Laguna MD Primary Care Provider Mack mittal Reason for Visit * Reason Comments Medication Refill Encounter Details Date Type Department Care Team (Late st Contact Info) Description 09/03/2013 Refill Laboratory [place] [phone] Camilla Nava MD [facility] [place] [address] Social History Tobacco Use Types Packs/Day Years [...] EDT Clinical Support Primary Care at [address] [phone] 03/12/2024 8:50 AM [place] [address] Camilla Nava MD [facility] [place] [address] 03/20/2024 8:00 AM EST Office [place] [address] Camilla Nava MD [facility] [place] [address] documented as of this encounter Visit Diagnoses Not on filedocumented in this encounter Care Teams Forecast Analyst Relationship Specialty Start Date End Date Yash Laguna MD PCP - General 03/17/10 02/14/14 documented as of this encounter
--- OUTSIDE RECORDS SUMMARY | 2024-02-12 14:19 | XMS_ITS | Encounter Summary ---
Author Organization [facility] [place] [address] Care Team Providers Care Medical Coder Name Role Phone Yash Laguna MD Primary Care Provider Mack mittal Encounter Details Date Type Department Care Team (Latest Contact Info) Description 04/04/2013 5:07 PM EST - 04/04/2013 11:59 PM EST Hospital [place] [phone] Camilla Nava MD [facility] GASTROENTEROLOGY [place] [phone] Autoimmune hepatitis Discharge Disposition: Home Social History [...] Sig Dispensed Refills Start Date End Date Mesalamine (ASACOL HD) 800 mg TbEC Take 2 tablets by mouth 2 times daily. 120 tablet 0 12/29/2012 06/19/2013 folic acid (FOLVITE) 1 mg tablet TAKE 1 TABLET BY MOUTH DAILY 90 tablet 4 09/12/2012 09/07/2013 azaTHIOprine (IMURAN) 50 mg tablet TAKE 1 AND 1/2 TABLETS BY MOUTH DAILY 135 tablet 4 09/12/2012 09/03/2013 mesalamine (ASACOL) 400 mg EC tablet Take 4 tablets by mouth 2 times daily. 720 tablet 3 11/03/2011 06/19/2013 documented as of this encounter Plan of Treatment Upcoming Encounters Date Type Department Care Team (Late st Contact Info) Description 02/13/2024 1:00 PM EDT Clinical Support Primary Care at [address] [phone] 03/12/2024 8:50 AM [place] [address] Camilla Nava MD [facility] [place] [address] 03/20/2024 8:00 AM EST Office Visit [place] [address] Camilla Nava MD [facility] GASTROENTEROLOGY [place], [place] [phone] documented as of this encounter Procedures Procedure Name Priority Date/Time Associated Diagnosis Comments DIFFERENTIAL, AUTOMATED Routine 04/04/2013 5:13 PM EST CBC (WITH DIFF) Routine 04/04/2013 5:13 PM EST Autoimmune hepatitis HEPATIC FUNCTION PANEL Routine 04/04/2013 5:13 PM EST Autoimmune hepatitis documented in this encounter Results * Differential, Automated (04/04/2013 5:13 PM EST) Neutrophil % 70.3 34.0 - 71.0 % CERNER MILLENNIUM Neutrophil Absolute 6.02 1.50 - 6.30 x10(3)/mcL CERNER MILLENNIUM Lymph % 20.5 19.0 - 53.0 % CERNER MILLENNIUM Lymphocytes Abs 1.8 1.0 - 3.6 x10(3)/mcL CERNER MILLENNIUM Monocyte % 7.8 4.0 - 13.0 % CERNER MILLENNIUM Monocyte Abs 0.7 0.2 - 1.0 x10(3)/mcL CERNER MILLENNIUM Eos % 0.8 0.0 - 7.0 % CERNER MILLENNIUM Eosinophils Abs 0.1 0.0 - 0.5 x10(3)/mcL CERNER MILLENNIUM Basophil % 0.2 0.0 - 2.0 % CERNER MILLENNIUM Baso Absolute 0.0 0.0 - 0.2 x10(3)/mcL CERNER MILLENNIUM Immature Gran % 0.40 0.00 - 0.66 % CERNER MILLENNIUM Comment: Immature granulocytes(IG's)percentage and absolute count will include metamyelocytes, myelocytes, and promyelocytes. Blood smears from CBCs yielding IG's will be scanned manually for concordance. If this scan disagrees with the automated IG or if promyelocytes are noted, a manual differential will be performed. Immature Gran Absolute 0.03 0.00 - 0.05 x10(3)/mcL CERNER MILLENNIUM Blood specimen (specimen) 04/04/2013 5:13 PM EST 04/04/2013 5:24 PM EST Camilla Nava MD HEMATOLOGY ORDERABLE S [facility] * Hepatic Function Panel (04/04/2013 5:13 PM EST) Pathologist [facility] Protein, Total 7.8 6.4 - 8.3 gm/dL CERNER MILLENNIUM Albumin 4.7 3.2 - 5.2 gm/dL CERNER MILLENNIUM Aspartate Aminotransferase 25 0 - 39 unit/L CERNER MILLENNIUM Alanine Aminotransferase 29 0 - 55 unit/L CERNER MILLENNIUM Alkaline Phosphatase 109 40 - 120 unit/L CERNER MILLENNIUM Bilirubin, Total 0.3 0.2 - 1.3 mg/dL CERNER MILLENNIUM Bilirubin, Direct 0.1 0.0 - 0.3 mg/dL CERNER MILLENNIUM Blood specimen (specimen) 04/04/2013 5:13 PM EST 04/04/2013 5:24 PM EST Narrative Resulting Agency Comment Spec In Lab Camilla Nava MD CHEMISTRY ORDERABLES IRIS HERNANDEZ * CBC (with Diff) (04/04/2013 5:13 PM EST) White Blood Cell 8.6 4.0 - 10.0 x10(3)/mcL CERNER MILLENNIUM Red Blood Cell 5.07 4.63 - 6.08 x10(6)/mcL CERNER MILLENNIUM Hemoglobin 16.0 13.7 - 17.5 gm/dL CERNER MILLENNIUM Hematocrit 44.9 40.0 - 51.0 % CERNER MILLENNIUM Mean Cell Volume 88.6 79.0 - 92.0 fL CERNER MILLENNIUM Mean Cell Hemoglobin 31.6 25.6 - 32.2 pg CERNER MILLENNIUM Mean Cell Hemoglobin Concentration 35.6 32.0 - 36.5 gm/dL CERNER MILLENNIUM Platelet 275 145 - 370 x10(3)/mcL CERNER MILLENNIUM RDW Standard Deviation 42.0 35.0 - 46.0 fL CERNER MILLENNIUM RDW coefficient of variation 13.1 10.9 - 14.4 % CERNER MILLENNIUM Mean Platelet Volume 10.8 9.0 - 12.0 fL CERNER MILLENNIUM Blood specimen (specimen) 04/04/2013 5:13 PM EST 04/04/2013 5:24 PM EST Narrative Resulting Agency Comment Spec In Lab Camilla Nava MD HEMATOLOGY ORDERABLE S IRIS HERNANDEZ documented in this encounter Visit Diagnoses Diagnosis Autoimmune hepatitis documented in this encounter Care Teams Medical Coder Relationship Specialty Start Date End Date Yash Laguna MD PCP - General 03/17/10 02/14/14 documented as of this encounter
--- OUTSIDE RECORDS SUMMARY | 2024-02-12 14:19 | XMS_ITS | Encounter Summary ---
Author Organization Formerly [facility] [place] [address] Care Team Providers Care Cleaner And Trimmer Name Role Phone None Primary Care Provider Unavailabl e Encounter Details Date Type Department Care Team (Latest Contact Info) Description 02/15/2014 4:43 PM EDT - 02/15/2014 11:59 PM EDT [place] [phone] Camilla Nava MD [facility] GASTROENTEROLOGY [place] [phone] Autoimmune hepatitis Discharge Disposition: Home Social History [...] EDT Clinical Support Primary Care at [address] [phone] 03/12/2024 8:50 AM [place] [phone] Camilla Nava MD [facility] [place] [address] 03/20/2024 8:00 AM EST Office Visit [place] [phone] Camilla Nava MD [facility] GASTROENTEROLOGY [place], [place] [phone] documented as of this encounter Procedures Procedure Name Priority Date/Time Associated Diagnosis Comments HEPATIC FUNCTION PANEL Routine 02/15/2014 4:49 PM EDT Autoimmune hepatitis documented in this encounter Results * (ABNORMAL) Hepatic Function Panel (02/15/2014 4:49 PM EDT) Protein, Total 7.8 6.4 - 8.3 gm/dL CERNER MILLENNIUM Albumin 4.8 3.2 - 5.2 gm/dL CERNER MILLENNIUM Aspartate Aminotransferase 49(H) 0 - 39 unit/L CERNER MILLENNIUM Alanine Aminotransferase 68(H) 0 - 55 unit/L CERNER MILLENNIUM Alkaline Phosphatase 182(H) 40 - 120 unit/L CERNER MILLENNIUM Bilirubin, Total 0.4 0.2 - 1.3 mg/dL CERNER MILLENNIUM Bilirubin, Direct 0.1 0.0 - 0.3 mg/dL CERNER MILLENNIUM Blood specimen (specimen) 02/15/2014 4:49 PM EDT 02/15/2014 4:53 PM EDT Narrative Resulting Agency Comment Spec In Lab Camilla Nava MD CHEMISTRY ORDERABLES Performing Organization Address City/State/[facility] Co pr Phone Number [facility] documented in this encounter Visit Diagnoses Diagnosis Autoimmune hepatitis documented in this encounter Care Teams Cleaner And Trimmer Relationship Specialty Start Date End Date None None PCP - General 02/15/14 05/05/14 documented as of this encounter
--- OUTSIDE RECORDS SUMMARY | 2024-02-12 14:19 | XMS_ITS | Encounter Summary ---
Author Organization [facility] [place] [address] Care Team Providers Care Structures Mechanic Name Role Phone None Primary Care Provider Unavailabl e Reason for Visit * Reason Comments Immunizations Encounter Details Date Type Department Care Team (Late st Contact Info) Description 03/13/2014 8:15 AM EST Follow-Up Primary Care at [address] [phone] Thais Yost PA [facility] [place] [place] [address] Encounter for immunization Discharge Disposition: Home Social History Tobacco Use [...] as of this encounter Progress Notes * Ninfa Ferrer RN - 03/14/2014 1:40 PM EST Associate is a 33 y.o. male who presents to the [facility] ([facility]) for a seasonal flu shot, tolerated well. documented in this encounter Plan of Treatment Upcoming Encounters Date Type Department Care Team (Late st Contact Info) Description 02/13/2024 1:00 PM EDT Clinical Support Primary Care at [address] [phone] 03/12/2024 8:50 AM [place] [phone] Camilla Nava MD [facility] [place] [address] 03/20/2024 8:00 AM EST Office Visit [place] [phone] Camilla Nava MD [facility] [place] [address] documented as of this encounter Visit Diagnoses Diagnosis Encounter for immunization Need for other specified prophylactic vaccination against single bacterial disease documented in this encounter Care Teams Structures Mechanic Relationship Specialty Start Date End Date None None PCP - General 02/15/14 05/05/14 documented as of this encounter
--- OUTSIDE RECORDS SUMMARY | 2024-02-12 14:19 | XMS_ITS | Encounter Summary ---
Author Organization Formerly [facility] [place] [address] Care Team Providers Care Net Developer Programmer Name Role Phone Yash Laguna MD Primary Care Provider Mack mittal Reason for Visit * Reason Onset Date Comments Medication Refill 12/29/2012 Encounter Details Date Type Department Care Team (Late st Contact Info) Description 12/29/2012 Refill [place] [phone] Camilla Nava MD [facility] [place] [address] Social History Tobacco Use Types Packs/Day Years [...] EDT Clinical Support Primary Care at [address] [phone] 03/12/2024 8:50 AM [place] [phone] Camilla Nava MD [facility] [place] [address] 03/20/2024 8:00 AM EST Office Visit [place] [address] Camilla Nava MD [facility] [place] [address] documented as of this encounter Visit Diagnoses Not on filedocumented in this encounter Care Teams Net Developer Programmer Relationship Specialty Start Date End Date Yash Laguna MD PCP - General 03/17/10 02/14/14 documented as of this encounter
--- OUTSIDE RECORDS SUMMARY | 2024-02-12 14:19 | XMS_ITS | Encounter Summary ---
Author Organization [facility] [place] [address] Care Team Providers Care Group Segment Consultant Name Role Phone Yash Laguna MD Primary Care Provider Mack mittal Encounter Details Date Type Department Care Team (Latest Contact Info) Description 12/25/2013 4:55 PM EDT - 12/25/2013 11:59 PM EDT Hospital [place] [phone] Camilla Nava MD [facility] GASTROENTEROLOGY [place] [phone] Autoimmune hepatitis Discharge Disposition: Home Social History [...] EDT Clinical Support Primary Care at [address] [phone] 03/12/2024 8:50 AM EST [place] [address] Camilla Nava MD [facility] GASTROENTEROLOGY [place], [place] [phone] 03/20/2024 8:00 AM EST Office Visit [place] [address] Camilla Nava MD [facility] GASTROENTEROLOGY [place], [place] [phone] documented as of this encounter Procedures Procedure Name Priority Date/Time Associated Diagnosis Comments HEPATIC FUNCTION PANEL Routine 12/25/2013 5:01 PM EDT Autoimmune hepatitis documented in this encounter Results * Hepatic Function Panel (12/25/2013 5:01 PM EDT) Protein, Total 7.8 6.4 - [...] 0.3 mg/dL CERNER MILLENNIUM Blood specimen (specimen) 12/25/2013 5:01 PM EDT 12/25/2013 5:06 PM EDT Narrative Resulting Agency Comment Spec In Lab Camilla Nava MD CHEMISTRY ORDERABLES [facility] documented in this encounter Visit Diagnoses Diagnosis Autoimmune hepatitis documented in this encounter Care Teams Group Segment Consultant Relationship Specialty Start Date End Date Yash Laguna MD PCP - General 03/17/10 02/14/14 documented as of this encounter
--- OUTSIDE RECORDS SUMMARY | 2024-02-12 14:19 | XMS_ITS | Encounter Summary ---
Author Organization Formerly [facility] [place]jel[place] [address] Care Team Providers Care Mail Carrier And Clerk Name Role Phone None Primary Care Provider Unavailabl e Encounter Details Date Type Department Care Team (Latest Contact Info) Description 03/18/2014 6:52 AM EST - 03/18/2014 11:59 PM EST Hospital [place] [phone] Camilla Nava MD [facility] [place] [address] Abnormal liver enzymes Discharge Disposition: Home Social History Tobacco Use [...] EDT Clinical Support Primary Care at [address] [phone] 03/12/2024 8:50 AM [place] [phone] Camilla Nava MD [facility] [place] [address] 03/20/2024 8:00 AM EST Office [place] [phone] Camilla Nava MD [facility] [place] [address] documented as of this encounter Procedures Procedure Name Priority Date/Time Associated Diagnosis Comments MRI CHOLANGIOPANCREATOGRAPHY Routine 8:15 AM EST Abnormal liver enzymes documented in this encounter Results * MRI cholangiopancreatography (03/18/2014 [...] 2. Examination otherwise unremarkable. Procedure Note Harry oMreno MD - 03/18/2014 Examination MR Cholangiopancreatography Clinical [...] 2. Examination otherwise unremarkable. Camilla Nava MD IMG MRI ORDERABLES documented in this encounter Visit Diagnoses Diagnosis Abnormal liver enzymes Other nonspecific abnormal serum enzyme levels documented in this encounter Care Teams Mail Carrier And Clerk Relationship Specialty Start Date End Date None None PCP - General 02/15/14 05/05/14 documented as of this encounter
--- OUTSIDE RECORDS SUMMARY | 2024-02-12 14:19 | XMS_ITS | Encounter Summary ---
Author Organization Formerly [facility] [place] [address] Care Team Providers Care Diet Counselor Name Role Phone Yash Laguna MD Primary Care Provider Mack mittal Reason for Visit * Reason Comments Medication Refill Encounter Details Date Type Department Care Team (Late st Contact Info) Description 09/12/2012 Refill [place] [phone] Camilla Nava MD [facility] [place] [address] Social History Tobacco Use Types Packs/Day Years [...] EDT Clinical Support Primary Care at [address] [phone] 03/12/2024 8:50 AM [place] [phone] Camilla Nava MD [facility] [place] [address] 03/20/2024 8:00 AM EST Office [place] [address] Camilla Nava MD [facility] [place] [address] documented as of this encounter Visit Diagnoses Not on filedocumented in this encounter Care Teams Diet Counselor Relationship Specialty Start Date End Date Yash Laguna MD PCP - General 03/17/10 02/14/14 documented as of this encounter
--- OUTSIDE RECORDS SUMMARY | 2024-02-12 14:19 | XMS_ITS | Encounter Summary ---
Author Organization [facility] [place] [address] Care Team Providers Care Motor Pool Clerk Name Role Phone Yash Laguna MD Primary Care Provider Mack mittal Encounter Details Date Type Department Care Team (Late st Contact Info) Description 04/04/2013 Orders [place] [phone] Camilla Nava MD [facility] [place] [address] Autoimmune hepatitis Social History Tobacco Use Types [...] EDT Clinical Support Primary Care at [address] [phone] 03/12/2024 8:50 AM [place] [address] Camilla Nava MD [facility] [place] [address] 03/20/2024 8:00 AM EST Office Visit Gastroenterology at [facility] [place] [address] Cmailla Nava MD [facility] [address] documented as of this encounter Results * Hepatic Function Panel (10/15/2014 5:14 PM [...] Nava MD CHEMISTRY ORDERABLES CERNER MILLENNIUM * Hepatic Function Panel (08/26/2014 [...] Nava MD CHEMISTRY ORDERABLES Performing Organization Address [email or web address] de Phone Number CERJONAH HOYTIUM * Hepatic Function Panel (07/22/2014 11:58 AM [...] Nava MD CHEMISTRY ORDERABLES Performing Organization Address [facility] [[email or web address] de Phone Number CERJONAH LEEENNIUM * (ABNORMAL) Hepatic Function Panel (06/20/2014 5:57 PM EST) Protein, Total 8.1 6.4 - 8.3 gm/dL [...] Nava MD CHEMISTRY ORDERABLES Performing Organization Address [email or web address] de Phone Number CERNER MILLENNIUM * Hepatic Function Panel (05/09/2014 [...] Nava MD CHEMISTRY ORDERABLES Performing Organization Address [facility] Phone Number CERNER MILLENNIUM * Hepatic Function Panel (04/04/2014 4:11 [...] Nava MD CHEMISTRY ORDERABLES Performing Organization Address [facility] Co de Phone Number CERNER MILLENNIUM * (ABNORMAL) Hepatic Function Panel (02/15/2014 4:49 [...] Nava MD CHEMISTRY ORDERABLES Performing Organization Address [email or web address] de Phone Number CERJONAH LEEENNIUM * Hepatic Function Panel (12/25/2013 5:01 PM [...] Resulting Agency Comment Spec In Lab Camilla Naav MD CHEMISTRY ORDERABLES Performing Organization Address [facility] Co de Phone Number CERJONAH LEEENNIUM * (ABNORMAL) Hepatic Function Panel (12/03/2013 4:49 [...] Nava MD CHEMISTRY ORDERABLES Performing Organization Address [email or web address] de Phone Number CERNER MILLENNIUM * (ABNORMAL) [...] Nava MD CHEMISTRY ORDERABLES Performing Organization Address [email or web address] de Phone Number CERNER MILLENNIUM * (ABNORMAL) Hepatic Function Panel (09/28/2013 4:57 [...] Lab Camilla Nava MD CHEMISTRY ORDERABLES IRIS LEEENNIUM * Hepatic Function Panel (04/04/2013 5:13 PM EST) Protein, Total 7.8 6.4 - 8.3 [...] Camilla Nava MD CHEMISTRY ORDERABLES IRIS HOYTIUM * CBC (with Diff) (04/04/2013 5:13 PM [...] hepatitis documented in this encounter Care Teams Motor Pool Clerk Relationship Specialty Start Date End Date Yash Laguna MD PCP - General 03/17/10 02/14/14 documented as of this encounter
--- OUTSIDE RECORDS SUMMARY | 2024-02-12 14:20 | XMS_ITS | Encounter Summary ---
Author Organization [facility] [place] [address] Care Team Providers Care Keypunch Operator Name Role Phone Yash Laguna MD Primary Care Provider Mack mittal Encounter Details Date Type Department Care Team (Late st Contact Info) Description 02/01/2011 Orders Only [place] [phone] Camilla Nava MD [facility] [place] [address] Autoimmune hepatitis (Primary Dx) Social History Tobacco Use Types [...] EDT Clinical Support Primary Care at [address] [phone] 03/12/2024 8:50 AM [place] [phone] Camilla Nava MD [facility] [place] [address] 03/20/2024 8:00 AM EST Office Visit [place] [address] Camilla Nava MD [facility] [place] [address] documented as of this encounter Visit Diagnoses Diagnosis Autoimmune hepatitis- Primary documented in this encounter Care Teams Keypunch Operator Relationship Specialty Start Date End Date Yash Laguna MD PCP - General 03/17/10 02/14/14 documented as of this encounter
--- OUTSIDE RECORDS SUMMARY | 2024-02-12 14:20 | XMS_ITS | Encounter Summary ---
Author Organization [facility]ly [facility] [place] [address] Care Team Providers Care Sales Representative Meats Name Role Phone Yash Laguna MD Primary Care Provider Mack mittal Encounter Details Date Type Department Care Team (Late st Contact Info) Description 2012 Notes Only [place] [address] Camilla Nava MD [facility] [place] [address] Social History Tobacco Use Types Packs/Day Years [...] Progress Notes * Camilla Nava MD - 2012 2:44 PM EST Dear Mahamed, Your labs show an elevation in one of the liver tests (ALT). This is what happened in the past whenwe tried to cut the imuran. I suggest you go back to 75mg/day. As I recall, you went to 50mg/day onFeb 24, 2012. Please have your labs repeated in one month. Sincerely, Camilla Nava MD Section of Gastroenterology & Hepatology [address] [place] [id number] Recent Results (from the past 24 hour(s)) HEPATIC FUNCTION PANEL Component Value Range Total Protein 7.6 6.4 - 8.3 (gm/dL) Albumin 4.8 3.2 - 5.2 (gm/dL) AST 34 0 - 39 (unit/L) ALT 64 (*) 0 - 55 (unit/L) Alk Phos 99 40 - 120 (unit/L) Total Bilirubin 0.4 0.2 - 1.3 (mg/dL) Bili, Direct 0.1 0.0 - 0.3 (mg/dL) documented in this encounter Plan of Treatment Upcoming Encounters Date Type Department Care Team (Late st Contact Info) Description 02/13/2024 1:00 PM EDT Clinical Support Primary Care at [address] [phone] 03/12/2024 8:50 AM [place] [address] Camilla Nava MD [facility] [place] [address] 03/20/2024 8:00 AM EST Office Visit [place] [address] Camilla Nava MD [facility] [place] [address] documented as of this encounter Visit Diagnoses Not on filedocumented in this encounter Care Teams Sales Representative Meats Relationship Specialty Start Date End Date Yash Laguna MD PCP - General 03/17/10 02/14/14 documented as of this encounter
--- OUTSIDE RECORDS SUMMARY | 2024-02-12 14:20 | XMS_ITS | Encounter Summary ---
Author Organization [facility] [place] [address] Care Team Providers Care No Bake Molder Name Role Phone Kalen Laguna MD Primary Care Provider Mack mittal Reason for Visit * Reason Comments Other autoimmune hepatitis Encounter Details Date Type Department Care Team (Late st Contact Info) Description 09/29/2010 1:00 PM EDT Follow-Up Gastroenterology at [place] [phone] Laz Longoria MD [facility] [place] [address] Autoimmune hepatitis (Primary Dx); Ulcerative colitis Discharge Disposition: Home Social History Tobacco Use [...] Sign Reading Time Taken Comments Blood Pressure 120/76 09/29/2010 1:04 PM EDT Pulse - - Temperature - - Respiratory Rate - - Oxygen Saturation - - Inhaled Oxygen Concentration - - Weight 86.2 kg (190 lb) 09/29/2010 1:04 PM EDT Height - - Body Mass Index - - documented in this encounter Progress Notes * Laz Longoria MD - 09/29/2010 1:29 PM EDT Gastoenterology & Hepatology Follow Up Note Provider: LAZ LONGORIA Gender: male : 1980 Referring Physician/Primary Care Physician: KALEN LAGUNA MD Problem List:: 1. Autoimmune hepatitis diagnosed 2001 with transaminases 400-500 range, ASMA 1:640; no symptoms Liver biopsy c/w/ AIH 2001 on low dose azathioprine since diagnosis after initial course of prednisone LFT's have remained normal since initial flare 2. Ulcerative colitis quiescent but was likely pancolitis diagnosed 1994, 1 major flare 2000 treated with prednisone maintained on asacol 1600mg bid folic acid aza (for AIH) last colonoscopy 2008 normal; biopsies showed inactive chronic colitis, no dysplasia Medications: Outpatient prescriptions marked as taking for the 09/29/10 encounter (Follow-Up) with LAZ LONGORIA Medication Sig Dispense Refill ??? azaTHIOprine (IMURAN) 50 mg tablet Take 75 mg by mouth daily. ??? mesalamine (ASACOL) 400 mg EC tablet 1600 mg PO Twice daily ??? folic acid (FOLVITE) 1 mg tablet 1 MG PO Once daily ADR/ALLERGIES: Allergies Allergen Reactions ??? Sulfa (Sulfonamide Antibiotics) Rash Interval History: Mahamed Dale is a 30 y.o. male who presents for follow up of autoimmune hepatitis. He had a slight bump in lft's in July. We increased azathioprine to 75mg/day. We had a small miscommunication in that I wanted him to repeat labs in two weeks but he did not get the message. He feels well. Bowels are normal, no blood in the stool. No fatigue, joint pain. VITAL SIGNS BP 120/76 Wt 86.183 kg (190 lb) Physical Exam: appears well, in no distress. HEENT: sclera anicteric, pupils equal, round, reactive to light, pharynx unremarkable. Neck: supple, no adenopathy, no thyromegaly. Chest: clear. Heart: regular rate andrhythm, normal S1, S2, no murmurs. Abdomen: normal bowel sounds, soft, non-tender, no masses, no hep atosplenomegaly. Extremities: no edema. Assessment/Plan: Flare of autoimmune hepatitis. Plan: -repeat lft's today -if still elevated start prednisone 20mg/day -LFT's q2 weeks until stabilized Colitis- -Continue folic acid, asacol. -Colonoscopy next year. [facility] is pharmacy Laz Longoria MD Section of Gastroenterology & Hepatology [address] [place], [place] [id number] Copy: KALEN LAGUNA MD [facility] [place] [phone] documented in this encounter Plan of Treatment Upcoming Encounters Date Type Department Care Team (Late st Contact Info) Description 02/13/2024 1:00 PM EDT Clinical Support Primary Care at [address] [phone] 03/12/2024 8:50 AM EST Appointment MRI at [place] [phone] Laz Longoria MD [facility] [place] [address] 03/20/2024 8:00 AM EST Office Visit Gastroenterology at [place] [phone] Laz Longoria MD [facility] [place] [address] documented as of this encounter Procedures Procedure Name Priority Date/Time Associated Diagnosis Comments DIFFERENTIAL, AUTOMATED Routine 09/29/2010 1:48 PM EDT CBC (WITH DIFF) Routine 09/29/2010 1:48 PM EDT Autoimmune hepatitis HEPATIC FUNCTION PANEL Routine 09/29/2010 1:48 PM EDT Autoimmune hepatitis documented in this encounter Results * REFLEX LAB-A-DIFF (09/29/2010 1:48 PM EDT) Neutrophil % 68.1 34.0 - 71.0 % CERNER [facility] Neutrophil Absolute 4.33 1.50 - 6.30 x10(3)/mcL CERNER M[facility] Lymph % 23.3 19.0 - 53.0 % CERNER MILLENNIUM Lymphocytes Abs 1.5 1.0 - 3.6 x10(3)/mcL CERNER MILLENNIUM Monocyte % 7.2 4.0 - 13.0 % CERNER [facility]NI[facility] Monocyte Abs 0.5 0.2 - 1.0 x10(3)/mcL CERNER MILLENNIUM Eos % 0.6 0.0 - 7.0 % CERNER MILLENNIUM Eosinophils Abs 0.0 0.0 - 0.5 x10(3)/mcL CERNER MILLENNIUM Basophil % 0.5 0.0 - 2.0 % CERNER [facility]NI[facility] Baso Absolute 0.0 0.0 - 0.2 x10(3)/mcL CERNER MILLENNIUM Immature Gran % 0.30 0.00 - 0.66 % CERNER MILLENNIUM Comment: Immature granulocytes(IG's)percentage and absolute count will include metamyelocytes, myelocytes, and promyelocytes. Blood smears from CBCs yielding IG's will be scanned manually for concordance. If this scan disagrees with the automated IG or if promyelocytes are noted, a manual differential will be performed. Immature Gran Absolute 0.02 0.00 - 0.05 x10(3)/mcL CERNER MILLENNIUM Blood specimen (specimen) 09/29/2010 1:48 PM EDT 09/29/2010 1:54 PM EDT Laz Longoria MD HEMATOLOGY ORDERABLE S CERNER M[facility] * CBC (With Diff) (09/29/2010 1:48 PM EDT) White Blood Cell 6.4 4.0 - 10.0 x10(3)/mcL CERNER MILLENNIUM Red Blood Cell 5.03 4.63 - 6.08 x10(6)/mcL CERNER MILLENNIUM Hemoglobin 15.5 13.7 - 17.5 gm/dL CERNER M[facility]NI[facility] Hematocrit 43.2 40.0 - 51.0 % CERNER MILLENNIUM Mean Cell Volume 85.9 79.0 - 92.0 fL CERNER MILLENNIUM Mean Cell Hemoglobin 30.8 25.6 - 32.2 pg CERNER [facility]NI[facility] Mean Cell Hemoglobin Concentration 35.9 32.0 - 36.5 gm/dL CERNER MILLENNI[facility] Platelet 228 145 - 370 x10(3)/mcL CERNER M[facility]ENNI[facility] RDW Standard Deviation 41.4 35.0 - 46.0 fL CERNER MILLENNIUM RDW coefficient of variation 13.1 10.9 - 14.4 % CERNER MILLENNIUM Mean Platelet Volume 9.9 9.0 - 12.0 fL CERNER MILLENNIUM Blood specimen (specimen) 09/29/2010 1:48 PM EDT 09/29/2010 1:54 PM EDT Laz Longoria MD HEMATOLOGY ORDERABLE S CERJONAH MILLENNIUM * Hepatic Function Panel (09/29/2010 1:48 PM EDT) Protein, Total 7.7 6.4 - 8.3 gm/dL CERNER [facility] Albumin 4.7 3.2 - 5.2 gm/dL CERNER [facility]NI[facility] Aspartate Aminotransferase 34 0 - 39 unit/L CERNER [facility] Alanine Aminotransferase 51 0 - 55 unit/L CERNER [facility] Alkaline Phosphatase 94 40 - 120 unit/L CERNER [facility]NI[facility] Bilirubin, Total 0.7 0.2 - 1.3 mg/dL CERNER M[facility]ENNI[facility] Bilirubin, Direct 0.2 0.0 - 0.3 mg/dL CERNER MILLENNIUM Blood specimen (specimen) 09/29/2010 1:48 PM EDT 09/29/2010 1:54 PM EDT Laz Longoria MD CHEMISTRY ORDERABLES IRIS HERNANDEZ documented in this encounter Visit Diagnoses Diagnosis Autoimmune hepatitis- Primary Ulcerative colitis Ulcerative colitis, unspecified documented in this encounter Care Teams No Bake Molder Relationship Specialty Start Date End Date Kalen Laguna MD PCP - General 03/17/10 02/14/14 documented as of this encounter
--- OUTSIDE RECORDS SUMMARY | 2024-02-12 14:20 | XMS_ITS | Encounter Summary ---
Author Organization [facility] [place] [address] Care Team Providers Care Hide Mill Man Name Role Phone Yash Laguna MD Primary Care Provider Mack mittal Encounter Details Date Type Department Care Team (Late st Contact Info) Description 04/15/2010 [place] [phone] Camilla Nava MD [facility] [place] [address] Social History Tobacco Use Types Packs/Day Years Used Date Smoking Tobacco: Never Assessed Sex and Gender Information Value Date Recorded Sex Assigned at Male 03/31/2023 12:56 PM EST Gender Identity Male 03/31/2023 12:56 PM EST Sexual Orientation Straight 03/31/2023 12 :56 PM EST documented as of this encounter Plan of Treatment Upcoming Encounters Date Type Department Care Team (Late st Contact Info) Description 02/13/2024 1:00 PM EDT Clinical Support Primary Care at [address] [address] 03/12/2024 8:50 AM [place] [phone] Camilla Nava MD [facility] [place] [address] 03/20/2024 8:00 AM EST Office [facility] [place] [place] [address] Camilla Nava MD [facility] [place] [address] documented as of this encounter Procedures Procedure Name Priority Date/Time Associated Diagnosis Comments DIFFERENTIAL, AUTOMATED Routine 04/15/2010 5:24 PM EST CBC (WITH DIFF) Routine 04/15/2010 5:24 PM EST LIPASE Routine 04/15/2010 5:24 PM EST AMYLASE Routine 04/15/2010 5:24 PM EST HEPATIC FUNCTION PANEL Routine 04/15/2010 5:24 PM EST documented in this encounter Results * LIPASE (04/15/2010 5:24 PM EST) Lipase 51 0 - 60 unit/L [facility] Blood specimen (specimen) 04/15/2010 5:24 PM EST 04/15/2010 5:33 PM EST Camilla Nava MD CHEMISTRY ORDERABLES Performing Organization Address [facility] Co de Phone Number [facility] * AMYLASE (04/15/2010 5:24 PM EST) Amylase 72 28 - 100 unit/L [facility] Blood specimen (specimen) 04/15/2010 5:24 PM EST 04/15/2010 5:33 PM EST Camilla Nava MD CHEMISTRY ORDERABLES [facility] * HEPATIC FUNCTION PANEL (04/15/2010 5:24 PM EST) Protein, Total 7.7 6.4 - 8.3 gm/dL [facility] Albumin 4.6 3.2 - 5.2 gm/dL CERNER MILLENNIUM Aspartate Aminotransferase 30 0 - 39 unit/L CERNER [facility] Alanine Aminotransferase 41 0 - 55 unit/L CERNER [facility]NI[facility] Alkaline Phosphatase 104 40 - 120 unit/L CERNER MILLENNIUM Bilirubin, Total 0.3 0.2 - 1.3 mg/dL CERNER MILLENNIUM Bilirubin, Direct 0.1 0.0 - 0.3 mg/dL CERNER MILLENNIUM Blood specimen (specimen) 04/15/2010 5:24 PM EST 04/15/2010 5:33 PM EST Camilla Nava MD CHEMISTRY ORDERABLES CERNER [facility]NI[facility] * REFLEX LAB-A-DIFF (04/15/2010 5:24 PM EST) Neutrophil % 63.9 34.0 - 71.0 % CERNER MILLENNIUM Neutrophil Absolute 5.21 1.50 - 6.30 x10(3)/mcL CERNER MILLENNIUM Lymph % 26.7 19.0 - 53.0 % CERNER MILLENNIUM Lymphocytes Abs 2.2 1.0 - 3.6 x10(3)/mcL CERNER MILLENNIUM Monocyte % 7.2 4.0 - 13.0 % CERNER [facility]ILLENNI[facility] Monocyte Abs 0.6 0.2 - 1.0 x10(3)/mcL CERNER MILLENNIUM Eos % 1.6 0.0 - 7.0 % CERNER [facility]ILLENNIUM Eosinophils Abs 0.1 0.0 - 0.5 x10(3)/mcL CERNER MILLENNIUM Basophil % 0.5 0.0 - 2.0 % CERNER [facility]ENNI[facility] Baso Absolute 0.0 0.0 - 0.2 x10(3)/mcL CERNER [facility]ENNIUM Immature Gran % 0.10 0.00 - 0.66 % CERNER MILLENNIUM Comment: Immature granulocytes(IG's)percentage and absolute count will include metamyelocytes, myelocytes, and promyelocytes. Blood smears from CBC's yielding IG's will be scanned manually for concordance. If this scan disagrees with the automated IG or if promyelocytes are noted, a manual differential will be performed. Immature Gran Absolute 0.01 0.00 - 0.05 x10(3)/mcL CERNER MILLENNIUM Blood specimen (specimen) 04/15/2010 5:24 PM EST 04/15/2010 5:33 PM EST Camilla Nava MD HEMATOLOGY ORDERABLE S CERNER [facility] * CBC (04/15/2010 5:24 PM EST) White Blood Cell 8.2 4.0 - 10.0 x10(3)/mcL CERNER [facility]NI[facility] Red Blood Cell 5.03 4.63 - 6.08 x10(6)/mcL CERNER [facility]ENNIUM Hemoglobin 15.4 13.7 - 17.5 gm/dL CERNER [facility]ILLENNI[facility] Hematocrit 44.1 40.0 - 51.0 % CERNER [facility]ILLENNI[facility] Mean Cell Volume 87.7 79.0 - 92.0 fL CERNER MILLENNIUM Mean Cell Hemoglobin 30.6 25.6 - 32.2 pg CERNER MILLENNIUM Mean Cell Hemoglobin Concentration 34.9 32.0 - 36.5 gm/dL CERNER [facility]NI[facility] Platelet 263 145 - 370 x10(3)/mcL CERNER MILLENNIUM RDW Standard Deviation 40.7 35.0 - 46.0 fL CERNER MILLENNIUM RDW coefficient of variation 12.7 10.9 - 14.4 % CERNER MILLENNIUM Mean Platelet Volume 10.4 9.0 - 12.0 fL CERNER MILLENNIUM Blood specimen (specimen) 04/15/2010 5:24 PM EST 04/15/2010 5:33 PM EST Camilla Nava MD HEMATOLOGY ORDERABLE S IRIS HOYTIUM documented in this encounter Visit Diagnoses Not on filedocumented in this encounter Care Teams Hide Mill Man Relationship Specialty Start Date End Date Yash Laguna MD PCP - General 03/17/10 02/14/14 documented as of this encounter
--- OUTSIDE RECORDS SUMMARY | 2024-02-12 14:20 | XMS_ITS | Encounter Summary ---
Author Organization [facility] [place] [address] Care Team Providers Care Ingot Caster Name Role Phone Yash Laguna MD Primary Care Provider Mcak mittal Encounter Details Date Type Department Care Team (Late st Contact Info) Description 07/27/2010 Orders [place] [phone] Camilla Nava MD [facility] [place] [address] Autoimmune hepatitis (Primary Dx) Social History Tobacco [...] EDT Clinical Support Primary Care at [address] [phone] 03/12/2024 8:50 AM [place] [phone] Camilla Nava MD [facility] [place] [address] 03/20/2024 8:00 AM EST Office [place] [address] Camilla Nava MD [facility] [place] [address] documented as of this encounter Visit Diagnoses Diagnosis Autoimmune hepatitis- Primary documented in this encounter Care Teams Ingot Caster Relationship Specialty Start Date End Date Yash Laguna MD PCP - General 03/17/10 02/14/14 documented as of this encounter
--- OUTSIDE RECORDS SUMMARY | 2024-02-12 14:20 | XMS_ITS | Encounter Summary ---
Author Organization [facility] Address [facility] [place] [address] Care Team Providers Care Vacuum Bottle Assembler Name Role Phone Yash Laguna MD Primary Care Provider Mack mittal Encounter Details Date Type Department Care Team (Late st Contact Info) Description 09/29/2010 [place] [phone] Hayley Gleason RN Social History Tobacco Use Types Packs/Day [...] EDT Clinical Support Primary Care at [address] [phone] 03/12/2024 8:50 AM [place] [address] Camilla Nava MD [facility] [place] [address] 03/20/2024 8:00 AM EST Office [place] [address] Camilla Nava MD [facility] [place] [address] documented as of this encounter Visit Diagnoses Not on filedocumented in this encounter Care Teams Vacuum Bottle Assembler Relationship Specialty Start Date End Date Yahs Laguna MD PCP - General 03/17/10 02/14/14 documented as of this encounter
--- OUTSIDE RECORDS SUMMARY | 2024-02-12 14:20 | XMS_ITS | Encounter Summary ---
Author Organization [facility] [place] [address] Care Team Providers Care Gambling Broker Name Role Phone Yash Laguna MD Primary Care Provider Mack mittal Encounter Details Date Type Department Care Team (Late st Contact Info) Description 02/23/2012 Orders [place] [phone] Camilla Nava MD [facility] [place] [address] Autoimmune hepatitis (Primary Dx) Social History Tobacco [...] PM EDT Clinical Support Primary Care at [address] [phone] 03/12/2024 8:50 [place] [phone] Camilla Nava MD [facility] [place] [address] 03/20/2024 8:00 AM EST Office [place] [address] Camilla Nava MD [facility] [place] [address] documented as of this encounter Visit Diagnoses Diagnosis Autoimmune hepatitis- Primary documented in this encounter Care Teams Gambling Broker Relationship Specialty Start Date End Date Yash Laguna MD PCP - General 03/17/10 02/14/14 documented as of this encounter
--- OUTSIDE RECORDS SUMMARY | 2024-02-12 14:20 | XMS_ITS | Encounter Summary ---
Author Organization [facility] [place] [address] Care Team Providers Care Hosiery Pairer Name Role Phone Yash Laguna MD Primary Care Provider Mack mittal Encounter Details Date Type Department Care Team (Latest Contact Info) Description 09/23/2011 8:17 AM EDT - 09/23/2011 11:59 PM EDT Hospital [place] [phone] Camilla Nava MD [facility] [place] [address] Autoimmune hepatitis; Hepatitis, autoimmune Discharge Disposition: Home [...] EDT Clinical Support Primary Care at [address] [phone] 03/12/2024 8:50 AM [place] [phone] Camilla Nava MD [facility] [place] [address] 03/20/2024 8:00 AM EST Office Visit Gastroenterology at [facility] [place] [phone] Camilla Nava MD [facility] [place]OLOG[place] [address] Scheduled Orders Name Type Priority Associated Diagnoses Orde r Schedule Hepatic Function Panel Lab Routine Hepatitis, autoimmune 1 Occurrences starting 09/23/2011 documented as of this encounter Procedures Procedure Name Priority Date/Time Associated Diagnosis Comments DIFFERENTIAL, AUTOMATED Routine 09/23/2011 8:25 AM EDT CBC (WITH DIFF) Routine 09/23/2011 8:25 AM EDT Hepatitis, autoimmune documented in this encounter Results * DIFFERENTIAL, AUTOMATED (09/23/2011 8:25 AM EDT) Neutrophil % 68.0 34.0 - 71.0 % CERNER MILLENNIUM Neutrophil Absolute 3.99 1.50 - 6.30 x10(3)/mcL CERNER MILLENNIUM Lymph % 24.6 19.0 - 53.0 % CERNER MILLENNIUM Lymphocytes Abs 1.4 1.0 - 3.6 x10(3)/mcL CERNER MILLENNIUM Monocyte % 6.1 4.0 - 13.0 % CERNER MILLENNIUM Monocyte Abs 0.4 0.2 - 1.0 x10(3)/mcL CERNER MILLENNIUM Eos % 0.9 0.0 - 7.0 % CERNER MILLENNIUM Eosinophils Abs 0.0 0.0 - 0.5 x10(3)/mcL CERNER MILLENNIUM Basophil % 0.2 0.0 - 2.0 % CERNER MILLENNIUM Baso Absolute 0.0 0.0 - 0.2 x10(3)/mcL CERNER MILLENNIUM Immature Gran % 0.20 0.00 [...] 0.05 x10(3)/mcL CERNER MILLENNIUM Blood specimen (specimen) 09/23/2011 8:25 AM EDT 09/23/2011 8:28 AM EDT Camilla Nava MD HEMATOLOGY ORDERABLE S Performing Organization Address City/[facility] Co de Phone Number CERJONAH LEEENNIUM * CBC (with Diff) (09/23/2011 8:25 AM EDT) White Blood Cell 5.9 4.0 - 10.0 x10(3)/mcL CERNER MILLENNIUM Red Blood Cell 4.65 4.63 - 6.08 x10(6)/mcL CERNER MILLENNIUM Hemoglobin 14.7 13.7 - 17.5 gm/dL CERNER MILLENNIUM Hematocrit 40.8 40.0 - 51.0 % CERNER MILLENNIUM Mean Cell Volume 87.7 79.0 - 92.0 fL CERNER MILLENNIUM Mean Cell Hemoglobin 31.6 25.6 - 32.2 pg CERNER MILLENNIUM Mean Cell Hemoglobin Concentration 36.0 32.0 - 36.5 gm/dL CERNER MILLENNIUM Platelet 195 145 - 370 x10(3)/mcL CERNER MILLENNIUM RDW Standard Deviation 42.8 35.0 - 46.0 fL CERNER MILLENNIUM RDW coefficient of variation 13.5 10.9 - 14.4 % CERNER MILLENNIUM Mean Platelet Volume 10.0 9.0 - 12.0 fL CERNER MILLENNIUM Blood specimen (specimen) 09/23/2011 8:25 AM EDT 09/23/2011 8:28 AM EDT Narrative Resulting Agency Comment Spec In Lab Camilla Nava MD HEMATOLOGY ORDERABLE S Performing Organization Address City/[facility]/ZIP Co de Phone Number IRIS HERNANDEZ documented in this encounter Visit Diagnoses Diagnosis Autoimmune hepatitis Hepatitis, autoimmune Autoimmune hepatitis documented in this encounter Care Teams Hosiery Pairer Relationship Specialty Start Date End Date Yash Laguna MD PCP - General 03/17/10 02/14/14 documented as of this encounter
--- OUTSIDE RECORDS SUMMARY | 2024-02-12 14:20 | XMS_ITS | Encounter Summary ---
Author Organization [facility] [place] [address] Care Team Providers Care Auto Rebuilder Name Role Phone Adiel Mooney MD Primary Care Provider [phone] Encounter Details Date Type Department Care Team (Late st Contact Info) Description 09/15/2006 Orders Only [facility] [place] [phone] Jerry Decker MD GASTROENTEROLOGY Social History Tobacco Use Types Packs/Day Years Used Date Smoking Tobacco: Never Assessed [facility] [...] EDT Clinical Support Primary Care at [address] [phone] 03/12/2024 8:50 AM [place] [address] Camilla Nava MD [facility] [place] [address] 03/20/2024 8:00 AM EST Office [place] [phone] Camilla Nava MD [facility] [place] [address] documented as of this encounter Procedures Procedure Name Priority Date/Time Associated Diagnosis Comments SURGICAL PATHOLOGY REPORT Routine 09/15/2006 4:04 PM EDT documented in this encounter Results * Surgical Pathology Report (09/15/2006 4:04 PM EDT) Surgical Pathology Report [id number] ? Location: The signing pathologist has (i) examined the relevant preparation(s) for the specimen(s) and (ii) rendered or confirmed the diagnosis(es). . ?Pathology Surgical Pathology Final Report Clinical Information Specimen Submitted: A - Tissue: Cecum B - Tissue: Transverse col C - Tissue: Descending col D - Tissue: Sigmoid colon Clinical History: UC rule out dysplasia Clinical Diagnosis: F/U ulcerative colitis Gross Description A - Labeled/Fixativ e: Tissue, cecum; formalin. Qty/Size/Weight : ?Three, averaging 0.2 x 0.1 x 0.1 cm. Tissue Description: ?? Soft, swenson tissues. Sections/Proces sing: ??(T1) B - Labeled/Fixativ e: Tissue, transverse col; formalin. Qty/Size/Weight : ?Four, averaging 0.2 x 0.2 x 0.1 cm. Tissue Description: ?? Soft, swenson tissues. Sections/Proces sing: ??(T1) C - Labeled/Fixativ e: Tissue, descending col; formalin. Qty/Size/Weight : ?Seven, averaging 0.2 x 0.1 x 0.1 cm. Tissue Description: ?? Soft, swenson tissues. Sections/Proces sing: ??(T2) D - Labeled/Fixativ e: Tissue, sigmoid colon; formalin. Qty/Size/Weight : ?Eight, averaging 0.2 x 0.1 x 0.1 cm. Tissue Description: ?? Soft, swenson tissues. Sections/Proces sing: ??(T2) ??aje/CSS Microscopic Description Slides reviewed, microscopic description not recorded. Diagnosis Endoscopic biopsies - A. ??Inactive chronic colitis. B. Inactive chronic colitis. C. Inactive chronic colitis. D. ??Inactive chronic colitis. Note: No dysplasia is seen. . Diagnosis CR-0 09/16/06 AAS 09/16/06 Verified by: ? Portillo Glass MD ?Pathologist ?(Electronic Signature) The attending pathologist whose signature appears on this report has reviewed all diagnostic slides and has edited the gross and/or microscopic portion of the report in rendering the final pathologic diagnosis. [facility] 09/15/2006 4:04 PM EDT Jerry Decker MD PATHOLOGY/CYTOLOGY ORDERABLES Performing Organization Address [facility]/State/[facility] Co de Phone Number [facility] documented in this encounter Visit Diagnoses Not on filedocumented in this encounter Care Teams Auto Rebuilder Relationship Specialty Start Date End Date Adiel Mooney MD [facility] GENER[facility] [place] [address] PCP - General General Internal Medicine 09/20/18 documented as of this encounter
--- OUTSIDE RECORDS SUMMARY | 2024-02-12 14:20 | XMS_ITS | Encounter Summary ---
Author Organization [facility] [place] [address] Care Team Providers Care Fishing Vessel Captain Name Role Phone Yash Laguna MD Primary Care Provider Mack mittal Reason for Visit * Reason Onset Date Comments Medication Refill 10/08/2010 Encounter Details Date Type Department Care Team (Late st Contact Info) Description 10/08/2010 [place] [phone] Camilla Nava MD [facility] [place] [address] Autoimmune hepatitis Social History Tobacco Use Types [...] EDT Clinical Support Primary Care at [address] [phone] 03/12/2024 8:50 [place] [phone] Camilla Nava MD [facility] [place] [address] 03/20/2024 8:00 AM EST Office [place] [address] Camilla Nava MD [facility] [place] [address] documented as of this encounter Visit Diagnoses Diagnosis Autoimmune hepatitis documented in this encounter Care Teams Fishing Vessel Captain Relationship Specialty Start Date End Date Yash Laguna MD PCP - General 03/17/10 02/14/14 documented as of this encounter
--- OUTSIDE RECORDS SUMMARY | 2024-02-12 14:20 | XMS_ITS | Encounter Summary ---
Author Organization [facility] [place] [address] Care Team Providers Care Grades 1 Thru 6 Home Teacher Name Role Phone Yash Laguna MD Primary Care Provider Mack mittal Encounter Details Date Type Department Care Team (Late st Contact Info) Description 08/31/2011 Orders [place] [phone] Camilla Nava MD [facility] [place] [address] Hepatitis, autoimmune (Primary Dx) Social History Tobacco Use Types [...] EDT Clinical Support Primary Care at [address] [phone] 03/12/2024 8:50 [place] [phone] Camilla Nava MD [facility] [place] [address] 03/20/2024 8:00 AM EST Office [place] [address] Camilla Nava MD [facility] [place] [address] documented as of this encounter Visit Diagnoses Diagnosis Hepatitis, autoimmune- Primary Autoimmune hepatitis documented in this encounter Care Teams Grades 1 Thru 6 Home Teacher Relationship Specialty Start Date End Date Yash Laguna MD PCP - General 03/17/10 02/14/14 documented as of this encounter
--- OUTSIDE RECORDS SUMMARY | 2024-02-12 14:20 | XMS_ITS | Encounter Summary ---
Author Organization [facility] [place] [address] Care Team Providers Care Utilization Review Rn Name Role Phone Yash Laguna MD Primary Care Provider Mack mittal Encounter Details Date Type Department Care Team (Latest Contact Info) Description 01/26/2011 12:12 PM EDT - 01/26/2011 11:59 PM EDT Hospital [place] [phone] Camilla Nava MD [facility] [place] [address] Autoimmune hepatitis Discharge Disposition: Home Social History [...] Sig Dispensed Refills Start Date End Date mesalamine (ASACOL) 400 mg EC tablet 1600 mg PO Twice daily 05/05/2010 04/07/2011 folic acid (FOLVITE) 1 mg tablet 1 MG PO Once daily 05/05/2010 1 documented as of this encounter Plan of Treatment Upcoming Encounters Date Type Department Care Team (Late st Contact Info) Description 02/13/2024 1:00 PM EDT Clinical Support Primary Care at [address] [phone] 03/12/2024 8:50 AM [place] [address] Camilla Nava MD [facility] [address] 03/20/2024 8:00 AM EST Office [place] [address] Camilla Nava MD [facility] [place] [address] documented as of this encounter Procedures Procedure Name Priority Date/Time Associated Diagnosis Comments DIFFERENTIAL, AUTOMATED Routine 01/26/2011 12:24 PM EDT CBC (WITH DIFF) Routine 01/26/2011 12:24 PM EDT Autoimmune hepatitis documented in this encounter Results * (ABNORMAL) A-DIFF (01/26/2011 12:24 PM EDT) Neutrophil % 74.0(H) 34.0 - 71.0 % CERNER MILLENNIUM Neutrophil Absolute 6.84(H) 1.50 - 6.30 x10(3)/mc L CERNER MILLENNIUM Lymph % 18.0(L) 19.0 - 53.0 % CERNER MILLENNIUM Lymphocytes Abs 1.7 1.0 - 3.6 x10(3)/mc L CERNER MILLENNIUM Monocyte % 6.9 4.0 - 13.0 % CERNER MILLENNIUM Monocyte Abs 0.6 0.2 - 1.0 x10(3)/mc L CERNER MILLENNIUM Eos % 0.8 0.0 - 7.0 % CERNER MILLENNIUM Eosinophils Abs 0.1 0.0 - 0.5 x10(3)/mc L CERNER MILLENNIUM Basophil % 0.2 0.0 - 2.0 % CERNER MILLENNIUM Baso Absolute 0.0 0.0 - 0.2 x10(3)/mc L CERNER MILLENNIUM Immature Gran % 0.10 0.00 [...] x10(3)/mc L CERNER MILLENNIUM Blood specimen (specimen) 01/26/2011 12:24 PM EDT 01/26/2011 12:31 PM EDT Camilla Nava MD HEMATOLOGY ORDERABLE S CERNER MILLENNIUM * (ABNORMAL) CBC (With Diff) (01/26/2011 12:24 PM EDT) White Blood Cell 9.2 4.0 - 10.0 x10(3)/mc L CERNER MILLENNIUM Red Blood Cell 5.19 4.63 - 6.08 x10(6)/mc L CERNER MILLENNIUM Hemoglobin 16.7 13.7 - 17.5 gm/dL CERNER MILLENNIUM Hematocrit 45.2 40.0 - 51.0 % CERNER MILLENNIUM Mean Cell Volume 87.1 79.0 - 92.0 fL CERNER MILLENNIUM Mean Cell Hemoglobin 32.2 25.6 - 32.2 pg CERNER MILLENNIUM Mean Cell Hemoglobin Concentration 36.9(H) 32.0 - 36.5 gm/dL CERNER MILLENNIUM Platelet 241 145 - 370 x10(3)/mc L CERNER MILLENNIUM RDW Standard Deviation 42.0 35.0 - 46.0 fL CERNER MILLENNIUM RDW coefficient of variation 13.2 10.9 - 14.4 % CERNER MILLENNIUM Mean Platelet Volume 10.6 9.0 - 12.0 fL CERNER MILLENNIUM Blood specimen (specimen) 01/26/2011 12:24 PM EDT 01/26/2011 12:31 PM EDT Camilla Nava MD HEMATOLOGY ORDERABLE S Performing Organization Address City/State/[facility] Co de Phone Number [facility] documented in this encounter Visit Diagnoses Diagnosis Autoimmune hepatitis documented in this encounter Care Teams Utilization Review Rn Relationship Specialty Start Date End Date Yash Laguna MD PCP - General 03/17/10 02/14/14 documented as of this encounter
--- OUTSIDE RECORDS SUMMARY | 2024-02-12 14:20 | XMS_ITS | Encounter Summary ---
Author Organization [facility] [place] [address] Care Team Providers Care Pediatric Occupational Therapist Name Role Phone Yash Laguna MD Primary Care Provider Mack mittal Encounter Details Date Type Department Care Team (Latest Contact Info) Description 08/07/2010 3:24 PM EDT - 08/07/2010 11:59 PM EDT Hospital [place] [phone] Camilla Nava MD [facility] [place] [address] Discharge Disposition: Home Social History Tobacco Use [...] EDT Clinical Support Primary Care at [address] [phone] 03/12/2024 8:50 [place] [phone] Camilla Nava MD [facility] [place] [address] 03/20/2024 8:00 AM EST Office [place] [phone] Camilla Nava MD [facility] [address] [place], [place] [phone] documented as of this encounter Procedures Procedure Name Priority Date/Time Associated Diagnosis Comments DIFFERENTIAL, AUTOMATED Routine 08/07/2010 3:46 PM EDT CBC (WITH DIFF) Routine 08/07/2010 3:46 PM EDT HEPATIC FUNCTION PANEL Routine 08/07/2010 3:46 PM EDT documented in this encounter Results * REFLEX LAB-A-DIFF (08/07/2010 3:46 PM EDT) Neutrophil % 65.6 34.0 - 71.0 % CERNER MILLENNIUM Neutrophil Absolute 5.06 1.50 - 6.30 x10(3)/mcL CERNER MILLENNIUM Lymph % 23.5 19.0 - 53.0 % CERNER MILLENNIUM Lymphocytes Abs 1.8 1.0 - 3.6 x10(3)/mcL CERNER MILLENNIUM Monocyte % 9.5 4.0 - 13.0 % CERNER MILLENNIUM Monocyte Abs 0.7 0.2 - 1.0 x10(3)/mcL CERNER MILLENNIUM Eos % 0.9 0.0 - 7.0 % CERNER MILLENNIUM Eosinophils Abs 0.1 0.0 - 0.5 x10(3)/mcL CERNER MILLENNIUM Basophil % 0.4 0.0 - 2.0 % CERNER MILLENNIUM Baso [...] 0.05 x10(3)/mcL CERNER MILLENNIUM Blood specimen (specimen) 08/07/2010 3:46 PM EDT 08/07/2010 3:51 PM EDT Camilla Nava MD HEMATOLOGY ORDERABLE S Performing Organization Address City/[facility] Co de Phone Number CERJONAH HOYTIUM * CBC (WITH DIFF) (08/07/2010 3:46 PM EDT) White Blood Cell 7.7 4.0 - 10.0 x10(3)/mcL CERNER MILLENNIUM Red Blood Cell 5.13 4.63 - 6.08 x10(6)/mcL CERNER MILLENNIUM Hemoglobin 15.9 13.7 - 17.5 gm/dL CERNER MILLENNIUM Hematocrit 44.4 40.0 - 51.0 % CERNER MILLENNIUM Mean Cell Volume 86.5 79.0 - 92.0 fL CERNER MILLENNIUM Mean Cell Hemoglobin 31.0 25.6 - 32.2 pg CERNER MILLENNIUM Mean Cell Hemoglobin Concentration 35.8 32.0 - 36.5 gm/dL CERNER MILLENNIUM Platelet 246 145 - 370 x10(3)/mcL CERNER MILLENNIUM RDW Standard Deviation 41.1 35.0 - 46.0 fL CERNER MILLENNIUM RDW coefficient of variation 12.9 10.9 - 14.4 % CERNER MILLENNIUM Mean Platelet Volume 10.8 9.0 - 12.0 fL CERNER MILLENNIUM Blood specimen (specimen) 08/07/2010 3:46 PM EDT 08/07/2010 3:51 PM EDT Camilla Nava MD HEMATOLOGY ORDERABLE S Performing Organization Address City/[facility] Co de Phone Number IRIS LEEENNIUM * (ABNORMAL) HEPATIC FUNCTION PANEL (08/07/2010 3:46 PM EDT) Protein, Total 8.1 6.4 - 8.3 gm/dL CERNER MILLENNIUM Albumin 4.9 3.2 - 5.2 gm/dL CERNER MILLENNIUM Aspartate Aminotransferase 43(H) 0 - 39 unit/L CERNER MILLENNIUM Alanine Aminotransferase 79(H) 0 - 55 unit/L CERNER MILLENNIUM Alkaline Phosphatase 126(H) 40 - 120 unit/L CERNER MILLENNIUM Bilirubin, Total 0.4 0.2 - 1.3 mg/dL CERNER MILLENNIUM Bilirubin, Direct 0.1 0.0 - 0.3 mg/dL CERNER MILLENNIUM Blood specimen (specimen) 08/07/2010 3:46 PM EDT 08/07/2010 3:51 PM EDT Camilla Nava MD CHEMISTRY ORDERABLES IRIS HERNANDEZ documented in this encounter Visit Diagnoses Not on filedocumented in this encounter Care Teams Pediatric Occupational Therapist Relationship Specialty Start Date End Date Yash Laguna MD PCP - General 03/17/10 02/14/14 documented as of this encounter
--- OUTSIDE RECORDS SUMMARY | 2024-02-12 14:20 | XMS_ITS | Encounter Summary ---
Author Organization [facility] [place] [address] Care Team Providers Care Underwriting Service Representative Name Role Phone Yash Laguna MD Primary Care Provider Mack mittal Reason for Visit * Reason Onset Date Comments Medication Refill 11/03/2011 Encounter Details Date Type Department Care Team (Late st Contact Info) Description 11/03/2011 Ref[place] [phone] Camilla Nava MD [facility] [place] [address] Social History Tobacco Use Types Packs/Day Years [...] EDT Clinical Support Primary Care at [address] [phone] 03/12/2024 8:50 [place] [phone] Camilla Nava MD [facility] [place] [address] 03/20/2024 8:00 AM EST Office [place] [address] Camilla Nava MD [facility] [place] [address] documented as of this encounter Visit Diagnoses Not on filedocumented in this encounter Care Teams Underwriting Service Representative Relationship Specialty Start Date End Date Yash Laguna MD PCP - General 03/17/10 02/14/14 documented as of this encounter
--- OUTSIDE RECORDS SUMMARY | 2024-02-12 14:20 | XMS_ITS | Encounter Summary ---
Author Organization [facility] [place] [address] Care Team Providers Care Tumbling Machine Operator Name Role Phone Yash Laguna MD Primary Care Provider Mack mittal Encounter Details Date Type Department Care Team (Late st Contact Info) Description 02/23/2012 Orders [place] [address] Camilla Nava MD [facility] [place] [address] Social History Tobacco Use Types Packs/Day Years [...] EDT Clinical Support Primary Care at [address] [phone] 03/12/2024 8:50 [place] [phone] Camilla Nava MD [facility] [place] [address] 03/20/2024 8:00 AM EST Office [place] [address] Camilla Nava MD [facility] [place] [address] documented as of this encounter Visit Diagnoses Not on filedocumented in this encounter Care Teams Tumbling Machine Operator Relationship Specialty Start Date End Date Yash Laguna MD PCP - General 03/17/10 02/14/14 documented as of this encounter
--- OUTSIDE RECORDS SUMMARY | 2024-02-12 14:20 | XMS_ITS | Encounter Summary ---
Author Organization [facility] [place] [address] Care Team Providers Care Machine Boss Name Role Phone Yash Laguna MD Primary Care Provider Mack mittal Reason for Visit * Reason Onset Date Comments Medication Refill 10/26/2011 Encounter Details Date Type Department Care Team (Late st Contact Info) Description 10/26/2011 [place] [address] Camilla Nava MD [facility] [place] [address] Social History Tobacco Use Types Packs/Day Years [...] PM EDT Clinical Support Primary Care at [address] [phone] 03/12/2024 8:50 [place] [phone] Camilla Nava MD [facility] [place] [address] 03/20/2024 8:00 AM EST Office [place] [address] Camilla Nava MD [facility] [place] [address] documented as of this encounter Visit Diagnoses Not on filedocumented in this encounter Care Teams Machine Boss Relationship Specialty Start Date End Date Yash Laguna MD PCP - General 03/17/10 02/14/14 documented as of this encounter
--- OUTSIDE RECORDS SUMMARY | 2024-02-12 14:20 | XMS_ITS | Encounter Summary ---
Author Organization [facility] [place] [address] Care Team Providers Care Cloth Checker Name Role Phone Yash Laguna MD Primary Care Provider Mack mittal Encounter Details Date Type Department Care Team (Latest Contact Info) Description 07/21/2010 2:20 PM EDT - 07/21/2010 11:59 PM EDT Hospital Encounter [place] [phone] Camilla Nava MD [facility] [place]STR[place] [address] Autoimmune hepatitis Discharge Disposition: Home Social History [...] EDT Clinical Support Primary Care at [address] [phone] 03/12/2024 8:50 AM [place] [address] Camilla Nava MD [facility] [place] [address] 03/20/2024 8:00 AM EST Office Visit [place] [phone] Camilla Nava MD [facility] [place] [address] documented as of this encounter Procedures Procedure Name Priority Date/Time Associated Diagnosis Comments DIFFERENTIAL, AUTOMATED Routine 07/21/2010 2:34 PM EDT CBC (WITH DIFF) Routine 07/21/2010 2:34 PM EDT HEPATIC FUNCTION PANEL Routine 07/21/2010 2:34 PM EDT documented in this encounter Results * (ABNORMAL) REFLEX LAB-A-DIFF (07/21/2010 2:34 PM EDT) Neutrophil % 58.1 34.0 - 71.0 % CERNER MILLENNIUM Neutrophil Absolute 2.99 1.50 - 6.30 x10(3)/mc L CERNER MILLENNIUM Lymph % 25.2 19.0 - 53.0 % CERNER MILLENNIUM Lymphocytes Abs 1.3 1.0 - 3.6 x10(3)/mc L CERNER MILLENNIUM Monocyte % 14.4(H) 4.0 - 13.0 % CERNER MILLENNIUM Monocyte Abs 0.7 0.2 - 1.0 x10(3)/mc L CERNER MILLENNIUM Eos % 1.7 0.0 - 7.0 % CERNER MILLENNIUM Eosinophils Abs 0.1 0.0 - 0.5 x10(3)/mc L CERNER MILLENNIUM Basophil % 0.4 0.0 - [...] x10(3)/mc L CERNER MILLENNIUM Blood specimen (specimen) 07/21/2010 2:34 PM EDT 07/21/2010 2:43 PM EDT Camilla Nava MD HEMATOLOGY ORDERABLE S CERNER ROSAENNIUM * CBC (WITH DIFF) (07/21/2010 2:34 PM EDT) White Blood Cell 5.2 4.0 - 10.0 x10(3)/mcL CERNER MILLENNIUM Red Blood Cell 5.10 4.63 - 6.08 x10(6)/mcL CERNER MILLENNIUM Hemoglobin 15.8 13.7 - 17.5 gm/dL CERNER MILLENNIUM Hematocrit 44.4 40.0 - 51.0 % CERNER MILLENNIUM Mean Cell Volume 87.1 79.0 - 92.0 fL CERNER MILLENNIUM Mean Cell Hemoglobin 31.0 25.6 - 32.2 pg CERNER MILLENNIUM Mean Cell Hemoglobin Concentration 35.6 32.0 - 36.5 gm/dL CERNER MILLENNIUM Platelet 207 145 - 370 x10(3)/mcL CERNER MILLENNIUM RDW Standard Deviation 41.7 35.0 - 46.0 fL CERNER MILLENNIUM RDW coefficient of variation 13.2 10.9 - 14.4 % CERNER MILLENNIUM Mean Platelet Volume 10.7 9.0 - 12.0 fL CERNER MILLENNIUM Blood specimen (specimen) 07/21/2010 2:34 PM EDT 07/21/2010 2:43 PM EDT Camilla Nava MD HEMATOLOGY ORDERABLE S Performing Organization Address [facility] Co de Phone Number CERJONAH MILLENNIUM * (ABNORMAL) HEPATIC FUNCTION PANEL (07/21/2010 2:34 PM EDT) Protein, Total 8.2 6.4 - 8.3 gm/dL CERNER MILLENNIUM Albumin 5.0 3.2 - 5.2 gm/dL CERNER MILLENNIUM Aspartate Aminotransferase 36 0 - 39 unit/L CERNER MILLENNIUM Alanine Aminotransferase 60(H) 0 - 55 unit/L CERNER MILLENNIUM Alkaline Phosphatase 130(H) 40 - 120 unit/L CERNER MILLENNIUM Bilirubin, Total 0.5 0.2 - 1.3 mg/dL CERNER MILLENNIUM Bilirubin, Direct 0.1 0.0 - 0.3 mg/dL CERNER MILLENNIUM Blood specimen (specimen) 07/21/2010 2:34 PM EDT 07/21/2010 2:43 PM EDT Camilla Nava MD CHEMISTRY ORDERABLES Performing Organization Address [facility] [place] Co de Phone Number CERJONAH LEEENNIUM documented in this encounter Visit Diagnoses Diagnosis Autoimmune hepatitis documented in this encounter Care Teams Cloth Checker Relationship Specialty Start Date End Date Yash Laguna MD PCP - General 03/17/10 02/14/14 documented as of this encounter
--- OUTSIDE RECORDS SUMMARY | 2024-02-12 14:20 | XMS_ITS | Encounter Summary ---
Author Organization [facility] [place] [address] Care Team Providers Care Manager Public Name Role Phone Yash Laguna MD Primary Care Provider Mack mittal Encounter Details Date Type Department Care Team (Latest Contact Info) Description 04/28/2011 5:23 PM EST - 04/28/2011 11:59 PM EST Hospital [place] [phone] Camilla Nava MD [facility] GASTROENTEROLOGY [place] [phone] Autoimmune hepatitis Discharge Disposition: Home Social History [...] End Date mesalamine (ASACOL) 400 mg EC tabletIndications:Ulcer ative colitis Take 4 tablets by mouth 2 times daily for 90 days. 720 tablet 1 04/07/2011 07/06/2011 folic acid (FOLVITE) 1 mg tabletIndications:Ulcer ative colitis Take 1 tablet by mouth daily for 90 days. 90 tablet 1 04/07/2011 07/06/2011 documented as of this encounter Plan of Treatment Upcoming Encounters Date Type Department Care Team (Late st Contact Info) Description 02/13/2024 1:00 PM EDT Clinical Support Primary Care at [address] [phone] 03/12/2024 8:50 [place] [phone] Camilla Nava MD [facility] GASTROENTEROLOGY [place], [place] [phone] 03/20/2024 8:00 AM EST Office [place] [phone] Camilla Nava MD [facility] GASTROENTEROLOGY [place], [place] [phone] documented as of this encounter Procedures Procedure Name Priority Date/Time Associated Diagnosis Comments DIFFERENTIAL, AUTOMATED Routine 04/28/2011 5:39 PM EST CBC (WITH DIFF) Routine 04/28/2011 5:39 PM EST Autoimmune hepatitis HEPATIC FUNCTION PANEL Routine 04/28/2011 5:39 PM EST Autoimmune hepatitis documented in this encounter Results * DIFFERENTIAL, AUTOMATED (04/28/2011 5:39 PM EST) Neutrophil % 57.9 34.0 - 71.0 % CERNER MILLENNIUM Neutrophil Absolute 3.94 1.50 - 6.30 x10(3)/mcL CERNER MILLENNIUM Lymph % 31.5 19.0 - 53.0 % CERNER MILLENNIUM Lymphocytes Abs 2.2 1.0 - 3.6 x10(3)/mcL CERNER MILLENNIUM Monocyte % 9.2 4.0 - 13.0 % CERNER MILLENNIUM Monocyte Abs 0.6 0.2 - 1.0 x10(3)/mcL CERNER MILLENNIUM Eos % 0.7 0.0 - 7.0 % CERNER MILLENNIUM Eosinophils Abs 0.0 0.0 - 0.5 x10(3)/mcL CERNER MILLENNIUM Basophil % 0.6 0.0 - 2.0 % CERNER MILLENNIUM Baso [...] 0.05 x10(3)/mcL CERNER MILLENNIUM Blood specimen (specimen) 04/28/2011 5:39 PM EST 04/28/2011 5:47 PM EST Camilla Nava MD HEMATOLOGY ORDERABLE S Performing Organization Address [facility] de Phone Number [facility] * Hepatic Function Panel (04/28/2011 5:39 PM EST) Protein, Total 8.2 6.4 - 8.3 gm/dL CERNER MILLENNIUM Albumin 4.8 3.2 - 5.2 gm/dL CERNER MILLENNIUM Aspartate Aminotransferase 35 0 - 39 unit/L CERNER MILLENNIUM Alanine Aminotransferase 34 0 - 55 unit/L CERNER MILLENNIUM Alkaline Phosphatase 94 40 - 120 unit/L CERNER MILLENNIUM Bilirubin, Total 0.5 0.2 - 1.3 mg/dL CERNER MILLENNIUM Bilirubin, Direct 0.1 0.0 - 0.3 mg/dL CERNER MILLENNIUM Blood specimen (specimen) 04/28/2011 5:39 PM EST 04/28/2011 5:47 PM EST Camilla Nava MD CHEMISTRY ORDERABLES Performing Organization Address [facility] Co de Phone Number [facility] * CBC (With Diff) (04/28/2011 5:39 PM EST) White Blood Cell 6.8 4.0 - 10.0 x10(3)/mcL CERNER MILLENNIUM Red Blood Cell 5.08 4.63 - 6.08 x10(6)/mcL CERNER MILLENNIUM Hemoglobin 15.7 13.7 - 17.5 gm/dL CERNER MILLENNIUM Hematocrit 43.6 40.0 - 51.0 % CERNER MILLENNIUM Mean Cell Volume 85.8 79.0 - 92.0 fL CERNER MILLENNIUM Mean Cell Hemoglobin 30.9 25.6 - 32.2 pg CERNER MILLENNIUM Mean Cell Hemoglobin Concentration 36.0 32.0 - 36.5 gm/dL CERNER MILLENNIUM Platelet 233 145 - 370 x10(3)/mcL CERNER MILLENNIUM RDW Standard Deviation 40.6 35.0 - 46.0 fL CERNER MILLENNIUM RDW coefficient of variation 13.0 10.9 - 14.4 % CERNER MILLENNIUM Mean Platelet Volume 10.1 9.0 - 12.0 fL CERNER MILLENNIUM Blood specimen (specimen) 04/28/2011 5:39 PM EST 04/28/2011 5:47 PM EST Camilla Nava MD HEMATOLOGY ORDERABLE S IRIS HERNANDEZ documented in this encounter Visit Diagnoses Diagnosis Autoimmune hepatitis documented in this encounter Care Teams Manager Public Relationship Specialty Start Date End Date Yash Laguna MD PCP - General 03/17/10 02/14/14 documented as of this encounter
--- OUTSIDE RECORDS SUMMARY | 2024-02-12 14:20 | XMS_ITS | Encounter Summary ---
Author Organization [facility] [place] [address] Care Team Providers Care Member Services Coordinator Name Role Phone Adiel Mooney MD Primary Care Provider Encounter Details Date Type Department Care Team (Late st Contact Info) Description 05/25/2004 Orders Only [facility] [place] [phone] Jerry Decker MD GASTROENTEROLOGY Social History Tobacco Use Types Packs/Day Years Used Date Smoking Tobacco: Never Assessed [facility] Utilities Answer Date Recorded In the [...] in a senior living (including now)? No 03/31/2023 Sex and Gender [...] EDT Clinical Support Primary Care at [address] [phone] 03/12/2024 8:50 AM [place] [address] Camilla Nava MD [facility] [place] [address] 03/20/2024 8:00 AM EST Office [place] [phone] Camilla Nava MD [facility] [place] [address] documented as of this encounter Procedures Procedure Name Priority Date/Time Associated Diagnosis Comments SURGICAL PATHOLOGY REPORT Routine 05/25/2004 1:15 PM EST documented in this encounter Results * Surgical Pathology Report (05/25/2004 1:15 PM EST) Surgical Pathology Report [id number] ? Location: The signing pathologist has (i) examined the relevant preparation(s) for the specimen(s) and (ii) rendered or confirmed the diagnosis(es). . ?Pathology Surgical Pathology Final Report Clinical Information Specimen Submitted: A - Endosc removed tissue, proximal colon B - Endosc removed tissue, rectosigmoid Clinical History: HX: of UC for 7-8 years. Normal looking colon random biopsied.C. Gross Description A - Labeled/Fixative : Labeled with the patient's name, medical record ?number and endosc removed tissue proximal ?colon; formalin. Qty/Size/Weight: ?Four, ranging from 0.3 cm to 0.4 cm in greatest ?dimension. Tissue Description: ?? Yellow-swenson tissue. Sections/Process ing: ??(T1) B - Labeled/Fixative : Labeled with the patient's name, medical record ?number and endosc removed tissue rectosigmoid; ?formalin. Qty/Size/Weight: ?Four, ranging from 0.3 cm to 0.4 cm in greatest ?dimension. Tissue Description: ?? Yellow-swenson tissue. Sections/Process ing: ??(T1) ??aje/EJR Microscopic Description Slides reviewed, microscopic description not recorded. Diagnosis A - Colon (proximal), endoscopic biopsies: ?Inactive chronic colitis; negative for dysplasia. B - Colon (rectosigmoid), endoscopic biopsies: ?Inactive chronic colitis; negative for dysplasia. CR-0 05/27/04 [facility] 05/27/04 Verified by: ? Reymundo Castilol MD, PhD ?Pathologist ?(Electronic Signature) The attending pathologist whose signature appears on this report has reviewed all diagnostic slides and has edited the gross and/or microscopic portion of the report in rendering the final pathologic diagnosis. IRIS LEEMITUL 05/25/2004 1:15 PM EST Jerry Decker MD PATHOLOGY/CYTOLOGY ORDERABLES Performing Organization Address City/State/[facility] [place] Phone Number IRIS HOYTCAPE [facility] documented in this encounter Visit Diagnoses Not on filedocumented in this encounter Care Teams Member Services Coordinator Relationship Specialty Start Date End Date Adiel Mooney MD [facility] [place] [address] PCP - General General Internal Medicine 09/20/18 documented as of this encounter
--- OUTSIDE RECORDS SUMMARY | 2024-02-12 14:20 | XMS_ITS | Encounter Summary ---
Author Organization [facility] [place] [address] Care Team Providers Care Buttoner Name Role Phone Yash Laguna MD Primary Care Provider Mack mittal Encounter Details Date Type Department Care Team (Latest Contact Info) Description 07/14/2012 5:37 PM EDT - 07/14/2012 11:59 PM EDT [place] [phone] Camilla Nava MD [facility] [place] [address] Autoimmune hepatitis Discharge Disposition: Home Social History [...] Date mesalamine (ASACOL) 400 mg EC tablet Take 4 tablets by mouth 2 times daily. 720 tablet 3 11/03/2011 06/19/2013 azaTHIOprine (IMURAN) 50 mg tablet Take 1.5 tablets by mouth daily. 135 tablet 3 10/26/2011 09/12/2012 folic acid (FOLVITE) 1 mg tablet Take 1 tablet by mouth daily. 90 tablet 3 10/26/2011 09/12/2012 documented as of this encounter Plan of Treatment Upcoming Encounters Date Type Department Care Team (Late st Contact Info) Description 02/13/2024 1:00 PM EDT Clinical Support Primary Care at [address] [phone] 03/12/2024 8:50 AM [place] [phone] [facility] [place] [address] 03/20/2024 8:00 AM EST Office Visit [place] [phone] [facility] [place] [address] documented as of this encounter Procedures Procedure Name Priority Date/Time Associated Diagnosis Comments HEPATIC FUNCTION PANEL Routine 07/14/2012 5:49 PM EDT Autoimmune hepatitis documented in this encounter Results * Hepatic Function Panel (07/14/2012 5:49 PM EDT) Protein, Total 8.1 6.4 - 8.3 gm/dL CERNER MILLENNIUM Albumin 4.9 3.2 - 5.2 gm/dL CERNER MILLENNIUM Aspartate Aminotransferase 25 0 - 39 unit/L CERNER MILLENNIUM Alanine Aminotransferase 28 0 - 55 unit/L CERNER MILLENNIUM Alkaline Phosphatase 104 40 - 120 unit/L CERNER MILLENNIUM Bilirubin, Total 0.4 0.2 - 1.3 mg/dL CERNER MILLENNIUM Bilirubin, Direct 0.1 0.0 - 0.3 mg/dL CERNER MILLENNIUM Blood specimen (specimen) 07/14/2012 5:49 PM EDT 07/14/2012 6:00 PM EDT Narrative Resulting Agency Comment Spec In Lab Camilla Nava MD CHEMISTRY ORDERABLES CERNER MILLJEFFREYIUM documented in this encounter Visit Diagnoses Diagnosis Autoimmune hepatitis documented in this encounter Care Teams Buttoner Relationship Specialty Start Date End Date Yash Laguna MD PCP - General 03/17/10 02/14/14 documented as of this encounter
--- OUTSIDE RECORDS SUMMARY | 2024-02-12 14:20 | XMS_ITS | Encounter Summary ---
Author Organization [facility] [place] [address] Care Team Providers Care Tow Operator Name Role Phone Yash Laguna MD Primary Care Provider Mack mittal Reason for Visit * Reason Onset Date Comments Medication Refill 10/07/2010 Encounter Details Date Type Department Care Team (Late st Contact Info) Description 10/07/2010 Refill [place] [phone] Camilla Nava MD [facility] [place] [address] Social History Tobacco Use Types Packs/Day Years [...] EDT Clinical Support Primary Care at [address] [phone] 03/12/2024 8:50 AM [place] [phone] Camilla Nava MD [facility] [place] [address] 03/20/2024 8:00 AM EST Office Visit [place] [address] Camilla Nava MD [facility] [place] [address] documented as of this encounter Visit Diagnoses Not on filedocumented in this encounter Care Teams Tow Operator Relationship Specialty Start Date End Date Yash Laguna MD PCP - General 03/17/10 02/14/14 documented as of this encounter
--- OUTSIDE RECORDS SUMMARY | 2024-02-12 14:20 | XMS_ITS | Encounter Summary ---
Author Organization [facility] [place] [address] Care Team Providers Care Director Television News Name Role Phone Yash Laguna MD Primary Care Provider Mack mittal Encounter Details Date Type Department Care Team (Latest Contact Info) Description 04/15/2010 5:19 PM EST - 04/15/2010 11:59 PM EST Hospital [place] [phone] Camilla Nava MD [facility] [place] [address] Discharge Disposition: Home Social History Tobacco Use [...] EDT Clinical Support Primary Care at [address] [phone] 03/12/2024 8:50 AM [place] [phone] Camilla Nava MD [facility] [place] [address] 03/20/2024 8:00 AM EST Office [place] [address] Camilla Nava MD [facility] [place] [address] documented as of this encounter Visit Diagnoses Not on filedocumented in this encounter Care Teams Director Television News Relationship Specialty Start Date End Date Yash Laguna MD PCP - General 03/17/10 02/14/14 documented as of this encounter
--- OUTSIDE RECORDS SUMMARY | 2024-02-12 14:20 | XMS_ITS | Encounter Summary ---
Author Organization [facility] [place] [address] Care Team Providers Care Developmental Behavioral Physician Name Role Phone Yash Laguna MD Primary Care Provider Mack mittal Encounter Details Date Type Department Care Team (Latest Contact Info) Description 02/23/2012 1:15 PM EDT - 02/23/2012 4:29 PM EDT Hospital Encounter Gastroenterology at [place] [phone] Laz Longoria MD [facility] GASTROENTEROLOGY [place] [phone] Discharge Disposition: Home Social History Tobacco Use [...] Sign Reading Time Taken Comments Blood Pressure 110/63 02/23/2012 2:49 PM EDT Pulse 68 02/23/2012 2:49 PM EDT Temperature 36.8 ??C (98.2 ??F) 02/23/2012 1:49 PM ED T Respiratory Rate 16 02/23/2012 2:49 PM EDT Oxygen Saturation 95% 02/23/2012 2:49 PM EDT Inhaled Oxygen Concentration - - Weight - - Height - - Body Mass Index - - documented in this encounter Discharge Instructions * Discharge Instructions* Thais Luther RN - 02/23/2012 2:51 PM EDT You may have received medications before and/or during your procedure which effect judgement and reaction time. Do not drive,operate machinery, drink alcoholic beverages or make important decisions for 24 hours. Be careful on stairs as you may be unsteady on your feet. You may eat a regular diet as tolerated. Do not smoke if you are alone. IV site ----slight redness or tenderness is normal. You may se a warm compress. If tenderness and redness increases of foul drainage occurs, please contact your MD. Please call [phone] before 5pm with problems, questions or concerns. After 5pm call [phone] and ask to speak with the live in caregiver strategy planning consultant. Discharge instructions reviewed with patient who expresses understanding. * Attachments The following attachments cannot be sent through Care Everywhere. * COLONOSCOPY: WHAT TO EXPECT AT HOME ([facility]) documented in this encounter Medications at Time [...] 10/26/2011 09/12/2012 documented as of this encounter H&P Notes * Laz Longoria MD - 02/23/2012 2:05 PM EDT Gastroenterology & Hepatology Pre-Procedure History and Physical Procedure: colonoscopy Indication: ulcerative colitis surveillance History of Present Illness: See my office note from last week. PMH: Patient Active Problem List Diagnoses Code ??? Hepatitis, autoimmune 571.42P ??? Ulcerative colitis 556.9J Medications: Azathioprine Asacol Allergies: Allergies Allergen Reactions ??? Sulfa (Sulfonamide Antibiotics) Rash Exam: Patient Vitals in the past 24 hrs: BP Temp Pulse Resp 02/23/12 1349 131/77 mmHg 36.8 ??C (98.2 ??F) 84 16 Airway examined Chest- clear Heart- RRR, nl s1, s2 Abdomen- normal bowel sounds, soft, non tender Assessment and Plan: Colonoscopy. Conscious sedation. Risks and benefits of the procedure were discussed with the patient. Consent has been signed. documented in this encounter Miscellaneous Notes * Miscellaneous - Provider, Scanning - 02/23/2012 9:41 PM EDT * Miscellaneous - Provider, Scanning - 02/23/2012 3:39 PM EDT * OR Attestation - Laz Longoria MD - 02/23/2012 2:54 PM EDT Attestation: Case Date: 02/23/2012 I personally performed the entire procedure. LAZ LONGORIA MD 02/23/2012 documented in this encounter Plan of Treatment Upcoming Encounters Date Type Department Care Team (Late st Contact Info) Description 02/13/2024 1:00 PM EDT Clinical Support Primary Care at [address] [phone] 03/12/2024 8:50 AM [place] [phone] Laz Longoria MD [facility] [place] [address] 03/20/2024 8:00 AM EST Office Visit [place] [phone] Laz Longoria MD [facility] [place] [address] documented as of this encounter Procedures Procedure Name Priority Date/Time Associated Diagnosis Comments SURGICAL PATHOLOGY REPORT Routine 02/23/2012 5:19 PM EDT SPECIMEN TO PATHOLOGY Routine 02/23/2012 3:03 PM EDT SPECIMEN TO PATHOLOGY Routine 02/23/2012 3:03 PM EDT SPECIMEN TO PATHOLOGY Routine 02/23/2012 3:03 PM EDT SPECIMEN TO PATHOLOGY Routine 02/23/2012 3:03 PM EDT COLONOSCOPY FLEXIBLE, WITH BX (WRVU 3.56) 02/23/2012 2:13 PM EDT 3 YR F/U CHRONIC PANCOLITIS COLONOSCOPY Routine 02/23/2012 1:59 PM EDT documented in this encounter Results * SURGICAL PATHOLOGY REPORT (02/23/2012 5:19 PM EDT) Surgical Pathology Report ? [facility] ? Provider: ?? SWATI, LAZ ? Pt. Name: ?? MAHAMED DALE ? Acc #: ?[id number] ?Pt. ? Col Date: ?? 02/23/2012 ?/Sex: ?1980,(31 years),Male ? Rec Date: ?? 02/23/2012 ?LOC: ?4T ? SURGICAL PATHOLOGY ? ---Pathologic Diagnosis--- ? A - Cecum/ascending colon, biopsy: ? Colonic mucosa, negative for diagnostic abnormality. ? B - Transverse colon, biopsy: ? Colonic mucosa, negative for diagnostic abnormality. ? C - Sigmoid and descending colon, biopsy: ? Colonic mucosa, negative for diagnostic abnormality. ? D - Rectum, biopsy: ? Colonic mucosa, negative for diagnostic abnormality. ? CR-0, CR-PX ? 02/24/12 ? [facility] ? 02/24/12 Verified by: ? Elijah Cortes MD ? Pathologist ? (Electronic Signature) ? The attending pathologist whose signature appears on this report has ? reviewed all diagnostic slides and has edited the gross and/or ? microscopic portion of the report in rendering the final pathologic ? diagnosis. ? ---Microscopic Description--- ? Slides reviewed, microscopic description not recorded. ? ---Gross Description--- ? A - Labeled/Fixative : Biopsies cecum/ascending colon, formalin. ? Qty/Size/Weight: ?Five, averaging 0.3 cm. ? Tissue Description: ?? Soft, swenson tissues. ? Sections/Process ing: ??(T1) ? B - Labeled/Fixative : Biopsies transverse colon, formalin. ? Qty/Size/Weight: ?Six, ranging from 0.2 cm to 0.4 cm in ? greatest dimension. ? Tissue Description: ?? Soft, swenson tissues. ? Sections/Process ing: ??(T2) ? C - Labeled/Fixative : Biopsies sigmoid and descending colon, formalin. ? Qty/Size/Weight: ?Multiple, averaging 0.3 cm. ? Tissue Description: ?? Soft, swenson tissues. ? Sections/Process ing: ??(T5) ? [facility] ? Provider: ?? SWATI, LAZ ? Pt. Name: ?? MAHAMED DALE ? Acc #: ?[id number] ?Pt. ? Col Date: ?? 02/23/2012 ?/Sex: ?1980,(31 years),Male ? Rec Date: ?? 02/23/2012 ?LOC: ?4T ? SURGICAL PATHOLOGY ? D - Labeled/Fixative : Biopsies rectum, formalin. ? Qty/Size/Weight: ?Four, averaging 0.3 cm. ? Tissue Description: ?? Soft, swenson tissues. ? Sections/Process ing: ??(T1) ??aje/SNS ? ---Clinical Information--- ? Specimen Submitted: ? A - Biopsies cecum/ascending colon ? B - Biopsies transverse colon ? C - Biopsies sigmoid and descending colon ? D - Biopsies rectum ? Clinical History/Diagnosi s: ? Ulcerative colitis in remission, biopsies for surveillance CERNER MILLENNIUM 02/23/2012 5:19 PM EDT Laz Longoria MD PATHOLOGY/CYTOLOGY O EVELIN Performing Organization Address [facility] Co de Phone Number CERNER MILLENNIUM * Specimen to Pathology (surgical or derm) (02/23/2012 3:03 PM EDT) AP Specimen 02/23/2012 3:03 PM EDT 02/23/2012 3:03 PM EDT Narrative CERNER MILLENNIUM - 02/23/2012 3:03 PM EDT Specimen requisition ordered. ??Separate Pathology report to follow Laz Longoria MD PATHOLOGY/CYTOLOGY O [place]ELIN Performing Organization Address City/State/[facility] Co de Phone Number IRIS HERNANDEZ * Specimen to Pathology (surgical or derm) (02/23/2012 3:03 PM EDT) AP Specimen 02/23/2012 3:03 PM EDT 02/23/2012 3:03 PM EDT Narrative IRIS HERNANDEZ - 02/23/2012 3:03 PM EDT Specimen requisition ordered. ??Separate Pathology report to follow Laz Longoria MD PATHOLOGY/CYTOLOGY O [place]ELIN Performing Organization Address [facility] Co de Phone Number IRIS HERNANDEZ * Specimen to Pathology (surgical or derm) (02/23/2012 3:03 PM EDT) AP Specimen 02/23/2012 3:03 PM EDT 02/23/2012 3:03 PM EDT Narrative IRIS HERNANDEZ - 02/23/2012 3:03 PM EDT Specimen requisition ordered. ??Separate Pathology report to follow Laz Longoria MD PATHOLOGY/CYTOLOGY O [place]EL[place] Performing Organization Address [facility] Co de Phone Number IRIS HERNANDEZ * Specimen to Pathology (surgical or derm) (02/23/2012 3:03 PM EDT) AP Specimen 02/23/2012 3:03 PM EDT 02/23/2012 3:03 PM EDT Narrative IRIS HERNANDEZ - 02/23/2012 3:03 PM EDT Specimen requisition ordered. ??Separate Pathology report to follow Laz Longoria MD PATHOLOGY/CYTOLOGY Beatris WATERS Performing Organization Address [facility] Co de Phone Number IRIS HERNANDEZ * COLONOSCOPY (02/23/2012 1:59 PM EDT) COLONOSCOPY [facility] Endoscopy Patient Name: Mahamed Ehret ? Procedure Date: 02/23/2012 1:59 PM ? Date of : 1980 ? Age: 31 ? Order #: [id number] ? Procedure: ? Colonoscopy Indications: ? High risk colon cancer surveillance: ? Ulcerative colitis Providers: ? Laz Longoria MD, Aissatou Bronson RN, ? Latisha Lundy, Animal Sitter Referring : ?Yash Laguna MD Medicines: ? Midazolam 4 mg IV, Fentanyl 200 ? micrograms IV Complications: ? No immediate complications. Procedure: ? Pre-Anesthesia Assessment: ? - Prior to the procedure, a History ? and Physical was performed, and ? patient medications, allergies and ? sensitivities have been reviewed. The ? patient's tolerance of previous ? anesthesia has been reviewed. ? - The risks and benefits [...] digital rectal exam was performed. ? The [place] 2012 was inserted in ? the anus and under direct ? visualization, advanced to the ? terminal ileum. Careful inspection ? was made as the colonoscope was ? withdrawn. The colonoscopy was ? performed without difficulty. The ? patient tolerated the procedure well. ? The quality of the bowel preparation ? was excellent. ? Findings: ? The colon (entire examined portion) appeared normal. ? Biopsies were taken with a cold forceps for ? histology. The terminal ileum appeared normal. ? Impression: ?- The entire examined colon is ? normal. This was biopsied. ? - The examined portion of the ileum ? was normal. Recommendation: ?- Await pathology results. ? - Continue asacol at current dose ? - Decrease azathioprine to 50mg and ? check lft's monthly for 3 months, ? then q 3 months for 9 months. ? Laz Longoria MD 02/23/2012 2:46 PM This report has been signed electronically. Number of Addenda: 0 Note Initiated On: 02/23/2012 1:59 PM [employer]ATION 02/23/2012 1:59 PM EDT Yash Laguna MD GENERAL SURGICAL ORD ERABLES [employer]ATION documented in this encounter Visit Diagnoses Not on filedocumented in this encounter Active and Recently Administered Medications Times are shown in EDT. PRN Medication Order 02/21/2012 02/22/2012 02/23/2012 fentaNYL 50mcg/mL injection (CANCELED) ONCE PRN, Starting on Tue02/23/12 at 1414, Until Tue02/23/12 at 1829, Pain, Intra-Operative (Intra-Procedure), Routine 1414 (Given - Provid er: Aissatou Bronson RN)1416 (Given - Provider: Aissatou Bronson RN) midazolam (VERSED) injection (CANCELED) ONCE PRN, Starting on Tue02/23/12 at 1415, Until Tue02/23/12 at 1829, Sleep, Intra-Operative (Intra-Procedure), Routine 1415 (Given - Provid er: Aissatou Bronson RN)1416 (Given - Provider: Aissatou Bronson RN)1417 (Given - Provider: Aissatou Bronson RN) documented in this encounter Care Teams Developmental Behavioral Physician Relationship Specialty Start Date End Date Yash Laguna MD PCP - General 03/17/10 02/14/14 documented as of this encounter
--- OUTSIDE RECORDS SUMMARY | 2024-02-12 14:20 | XMS_ITS | Encounter Summary ---
Author Organization [facility] [place] [address] Care Team Providers Care Quantitative Consultant Name Role Phone Yash Laguna MD Primary Care Provider Mack mittal Encounter Details Date Type Department Care Team (Late st Contact Info) Description 02/23/2012 2:00 PM EDT - 02/23/2012 2:45 PM EDT Surgery Gastroenterology at [place] [phone] Laz Longoria MD [facility] [place] [address] COLONOSCOPY FLEXIBLE, WITH BX (WRVU 3.56) Social [...] Sign Reading Time Taken Comments Blood Pressure 105/66 02/23/2012 2:40 PM EDT Pulse 73 02/23/2012 2:40 PM EDT Temperature 36.8 ??C (98.2 ??F) 02/23/2012 1:49 PM ED T Respiratory Rate 13 02/23/2012 2:40 PM EDT Oxygen Saturation 97% 02/23/2012 2:40 PM EDT Inhaled Oxygen Concentration - [...] occurs, please contact your MD. Please call [phone] before 5pm with problems, questions or concerns. After 5pm call [phone] and ask to speak with the machine operator picker semiconductors wafer breaker. Discharge instructions reviewed with patient who expresses understanding. * Attachments The following attachments cannot be sent through Care Everywhere. * COLONOSCOPY: WHAT TO EXPECT AT HOME (OMANI) documented in this encounter Medications at Time [...] EDT Clinical Support Primary Care at [address] [phone] 03/12/2024 8:50 AM [place] [phone] Laz Longoria MD [facility] [place] [address] 03/20/2024 8:00 AM EST Office Visit [place] [phone] Laz Longoria MD [facility] [place] [address] documented as of this encounter Procedures Procedure [...] 5:19 PM EDT) Surgical Pathology Report ? [facility] ? Provider: ?? SWATI, LAZ ? Pt. Name: ?? MAHAMED DALE ? Acc #: ?[id number] ?Pt. ? Col Date: ?? 02/23/2012 ?/Sex: [...] swenson tissues. ? Sections/Process ing: ??(T5) ? [facility] ? Provider: ?? SWATI, LAZ ? Pt. Name: ?? MAHAMED DALE ? Acc #: ?[id number] ?Pt. ? Col Date: ?? 02/23/2012 ?/Sex: [...] Ulcerative colitis in remission, biopsies for surveillance BENJONAH HOYTIUM 02/23/2012 5:19 PM EDT Laz Longoria MD PATHOLOGY/CYTOLOGY O EVELIN IRIS HERNANDEZ * Specimen to Pathology (surgical or derm) (02/23/2012 3:03 PM EDT) AP Specimen 02/23/2012 3:03 PM EDT 02/23/2012 3:03 PM EDT Narrative CERNER MILLENNIUM - 02/23/2012 3:03 PM EDT Specimen requisition ordered. ??Separate Pathology report to follow Laz Longoria MD PATHOLOGY/CYTOLOGY O EVELIN Performing Organization Address [facility]/ZIP Co de Phone Number IRIS HERNANDEZ * Specimen to Pathology (surgical or derm) (02/23/2012 3:03 PM EDT) AP Specimen 02/23/2012 3:03 PM EDT 02/23/2012 3:03 PM EDT Narrative IRIS HOYTIUM - 02/23/2012 3:03 PM EDT Specimen requisition ordered. ??Separate Pathology report to follow Laz Longoria MD PATHOLOGY/CYTOLOGY O EVELIN Performing Organization Address [facility]/ZIP Co de Phone Number IRIS HERNANDEZ * Specimen to Pathology (surgical or derm) (02/23/2012 3:03 PM EDT) AP Specimen 02/23/2012 3:03 PM EDT 02/23/2012 3:03 PM EDT Narrative IRIS HERNANDEZ - 02/23/2012 3:03 PM EDT Specimen requisition ordered. ??Separate Pathology report to follow Laz Longoria MD PATHOLOGY/CYTOLOGY O EVELIN Performing Organization Address [facility] Co de Phone Number IRIS HERNANDEZ * Specimen to Pathology (surgical or derm) (02/23/2012 3:03 PM EDT) AP Specimen 02/23/2012 3:03 PM EDT 02/23/2012 3:03 PM EDT Narrative IRIS HERNANDEZ - 02/23/2012 3:03 PM EDT Specimen requisition ordered. ??Separate Pathology report to follow Laz Longoria MD PATHOLOGY/CYTOLOGY O EVELIN Performing Organization Address [facility]/State/ZIP Co de Phone Number IRIS HERNANDEZ * COLONOSCOPY (02/23/2012 1:59 PM EDT) COLONOSCOPY [facility] Patient Name: Mahamed Dale ? Procedure Date: 02/23/2012 1:59 PM ? Date of : 1980 ? Age: 31 ? Order #: [id number] ? Procedure: ? Colonoscopy Indications: ? High risk colon cancer surveillance: ? Ulcerative colitis Providers: ? Laz Longoria MD, Aissatou Bronson RN, ? Latisha Lundy, Plumbing Inspector Referring : ?Yash Laguan MD Medicines: ? Midazolam 4 mg IV, [...] fentaNYL 50mcg/mL injection ONCE PRN, Starting on Tue02/23/12 at 1414, Until Tue02/23/12 at 1829, Pain, Intra-Operative (Intra-Procedure), Routine Given 02/23/2012 2:16 PM EDT 50 mcg Given 02/23/2012 2:14 PM EDT 50 mcg midazolam (VERSED) injection ONCE PRN, Starting on Tue02/23/12 at 1415, Until Tue02/23/12 at 1829, Sleep, Intra-Operative (Intra-Procedure), Routine Given 02/23/2012 2:17 PM EDT 1 mg Given 02/23/2012 2:16 PM EDT 1 mg Given 02/23/2012 2:15 PM EDT 1 mg documented in this encounter [...] RN) documented in this encounter Care Teams Quantitative Consultant Relationship Specialty Start Date End Date Yash Laguna MD PCP - General 03/17/10 02/14/14 documented as of this encounter
--- OUTSIDE RECORDS SUMMARY | 2024-02-12 14:20 | XMS_ITS | Encounter Summary ---
Author Organization [facility] [place] [address] Care Team Providers Care Brain Picker Name Role Phone Yash Laguna MD Primary Care Provider Mack mittal Encounter Details Date Type Department Care Team (Latest Contact Info) Description 03/29/2012 4:56 PM EST - 03/29/2012 11:59 PM EST Hospital Encounter Laboratory [facility] [address] [phone] Camilla Nava MD [facility] GASTROENTEROLOGY [place] [phone] Autoimmune hepatitis; Hepatitis, autoimmune Discharge Disposition: Home [...] EDT Clinical Support Primary Care at [address] [place] [phone] 03/12/2024 8:50 AM [place] [phone] Camilla Nava MD [facility] GASTROENTEROLOGY [place], [place] [phone] 03/20/2024 8:00 AM EST Office [place] [address] Camilla Nava MD [facility] [place] [address] documented as of this encounter Procedures Procedure Name Priority Date/Time Associated Diagnosis Comments DIFFERENTIAL, AUTOMATED Routine 03/29/2012 5:04 PM EST CBC (WITH DIFF) Routine 03/29/2012 5:04 PM EST Hepatitis, autoimmune HEPATIC FUNCTION PANEL Routine 03/29/2012 5:04 PM EST Autoimmune hepatitis documented in this encounter Results * Differential, Automated (03/29/2012 5:04 PM EST) Neutrophil % 65.1 34.0 - 71.0 % CERNER MILLENNIUM Neutrophil Absolute 5.14 1.50 - 6.30 x10(3)/mcL CERNER MILLENNIUM Lymph % 25.9 19.0 - 53.0 % CERNER MILLENNIUM Lymphocytes Abs 2.0 1.0 - 3.6 x10(3)/mcL CERNER MILLENNIUM Monocyte % 8.0 4.0 - 13.0 % CERNER MILLENNIUM Monocyte Abs 0.6 0.2 - 1.0 x10(3)/mcL CERNER MILLENNIUM Eos % 0.5 0.0 - 7.0 % CERNER MILLENNIUM Eosinophils [...] 0.05 x10(3)/mcL CERNER MILLENNIUM Blood specimen (specimen) 03/29/2012 5:04 PM EST 03/29/2012 5:14 PM EST Camilla Nava MD HEMATOLOGY ORDERABLE S CERNER MILLENNIUM * CBC (with Diff) (03/29/2012 5:04 PM EST) White Blood Cell 7.9 4.0 - 10.0 x10(3)/mcL CERNER MILLENNIUM Red Blood Cell 5.08 4.63 - 6.08 x10(6)/mcL CERNER MILLENNIUM Hemoglobin 16.3 13.7 - 17.5 gm/dL CERNER MILLENNIUM Hematocrit 45.7 40.0 - 51.0 % CERNER MILLENNIUM Mean Cell Volume 90.0 79.0 - 92.0 fL CERNER MILLENNIUM Mean Cell Hemoglobin 32.1 25.6 - 32.2 pg CERNER MILLENNIUM Mean Cell Hemoglobin Concentration 35.7 32.0 - 36.5 gm/dL CERNER MILLENNIUM Platelet 238 145 - 370 x10(3)/mcL CERNER MILLENNIUM RDW Standard Deviation 41.4 35.0 - 46.0 fL CERNER MILLENNIUM RDW coefficient of variation 12.7 10.9 - 14.4 % CERNER MILLENNIUM Mean Platelet Volume 10.7 9.0 - 12.0 fL CERNER MILLENNIUM Blood specimen (specimen) 03/29/2012 5:04 PM EST 03/29/2012 5:14 PM EST Narrative Resulting Agency Comment Spec In Lab Camilla Nava MD HEMATOLOGY ORDERABLE S Performing Organization Address [facility] Co de Phone Number IRIS LEEENNIUM * Hepatic Function Panel (03/29/2012 5:04 PM EST) Protein, Total 8.1 6.4 - 8.3 gm/dL CERNER MILLENNIUM Albumin 5.0 3.2 - 5.2 gm/dL CERNER MILLENNIUM Aspartate Aminotransferase 21 0 - 39 unit/L CERNER MILLENNIUM Alanine Aminotransferase 26 0 - 55 unit/L CERNER MILLENNIUM Alkaline Phosphatase 88 40 - 120 unit/L CERNER MILLENNIUM Bilirubin, Total 0.4 0.2 - 1.3 mg/dL CERNER MILLENNIUM Bilirubin, Direct 0.1 0.0 - 0.3 mg/dL CERNER MILLENNIUM Blood specimen (specimen) 03/29/2012 5:04 PM EST 03/29/2012 5:14 PM EST Narrative Resulting Agency Comment Spec In Lab Camilla Nava MD CHEMISTRY ORDERABLES Performing Organization Address City/[facility] Co de Phone Number IRIS HERNANDEZ documented in this encounter Visit Diagnoses Diagnosis Autoimmune hepatitis Hepatitis, autoimmune Autoimmune hepatitis documented in this encounter Care Teams Brain Picker Relationship Specialty Start Date End Date Yash Laguna MD PCP - General 03/17/10 02/14/14 documented as of this encounter
--- OUTSIDE RECORDS SUMMARY | 2024-02-12 14:20 | XMS_ITS | Encounter Summary ---
Author Organization [facility] [place] [address] Care Team Providers Care Alarm Operator Name Role Phone Adiel Mooney MD Primary Care Provider [phone] Encounter Details Date Type Department Care Team (Late st Contact Info) Description 02/12/2009 Orders [place] [address] Camilla Nava MD [facility] [place] [address] Social History Tobacco Use Types Packs/Day Years Used Date Smoking Tobacco: Never Assessed [facility] Utilities Answer Date Recorded In the past [...] EDT Clinical Support Primary Care at [address] [phone] 03/12/2024 8:50 [place] [address] Camilla Nava MD [facility] [place] [address] 03/20/2024 8:00 AM EST Office [place] [phone] Camilla Nava MD [facility] [place] [address] documented as of this encounter Procedures Procedure Name Priority Date/Time Associated Diagnosis Comments SURGICAL PATHOLOGY REPORT Routine 02/12/2009 3:58 PM EDT documented in this encounter Results * Surgical Pathology Report (02/12/2009 3:58 PM EDT) Pathologist [facility] Surgical Pathology Report [id number] ? Location: 4T The signing pathologist has (i) examined the relevant preparation(s) for the specimen(s) and (ii) rendered or confirmed the diagnosis(es). . ?Pathology Surgical Pathology Final Report Clinical Information Specimen Submitted: A - Biopsies, Right Colon B - Biopsies, Left Colon C - Biopsies of ? Polyp, 40cms Clinical History: Pt with hx of ulcerative colitis, looks to be in remission. ? Hyperplastic polyp vs. normal mucosa at 40 cms. Clinical Diagnosis: F/U ulcerative colitis Gross Description A - Labeled/Fixative : Biopsies, right colon, formalin. Qty/Size/Weight: ?Five pieces, ranging from 0.2 cm to 0.3 cm in ?greatest dimension. Tissue Description: ?? Fragmented, friable, yellow-swenson tissues. Sections/Process ing: ??(T1) B - Labeled/Fixative : Biopsies, left colon, formalin. Qty/Size/Weight: ?Multiple fragments, ranging from 0.2 cm to 0.5 cm ?in greatest dimension. Tissue Description: ?? Yellow-swenson tissues. Sections/Process ing: ??(T2) C - Labeled/Fixative : Biopsies of ? polyp, 40 cm, formalin. Qty/Size/Weight: ?Two pieces, 0.2 and 0.3 cm. Tissue Description: ?? Soft, swenson tissues. Sections/Process ing: ??(T1) ??jlk/TATYANAR Microscopic Description Slides reviewed, microscopic description not recorded. Diagnosis A - Right colon biopsy: ?Colonic mucosa within normal limits. B - Left colon biopsy: ?Colonic mucosa within normal limits. C - ? Colon polyp at 40 cm: ?Chronic quiescent colitis with regenerative epithelial changes. NOTE: ??There is no evidence of granulomas or dysplasia in any of the above biopsies. . Diagnosis CR-PX 02/14/09 JLK 02/14/09 Verified by: ? Yumiko GIRALDO, Lan ?Pathologist ?(Electronic Signature) The attending pathologist whose signature appears on this report has reviewed all diagnostic slides and has edited the gross and/or microscopic portion of the report in rendering the final pathologic diagnosis. IRIS LEEMITUL 02/12/2009 3:58 PM EDT Camilla Nava MD PATHOLOGY/CYTOLOGY O RDERAJOSE Performing Organization Address City/State/[facility] Co de Phone Number IRIS HERNANDEZ documented in this encounter Visit Diagnoses Not on filedocumented in this encounter Care Teams Alarm Operator Relationship Specialty Start Date End Date Adiel Mooney MD [facility] [place] [address] PCP - General General Internal Medicine 09/20/18 documented as of this encounter
--- OUTSIDE RECORDS SUMMARY | 2024-02-12 14:20 | XMS_ITS | Encounter Summary ---
Author Organization [facility] [place] [address] Care Team Providers Care Technologist Infectious Disease Name Role Phone Yash Laguna MD Primary Care Provider Mack mittal Encounter Details Date Type Department Care Team (Latest Contact Info) Description 2012 1:00 PM EST - 2012 11:59 PM EST Hospital [place] [phone] Camilla Nava MD [facility] GASTROENTEROLOGY [place] [phone] Autoimmune hepatitis Discharge Disposition: Home Social History [...] PM EDT Clinical Support Primary Care at [address] [phone] 03/12/2024 8:50 AM [place] [phone] Camilla Nava MD [facility] [place]STR[place] [address] 03/20/2024 8:00 AM EST Office [place] [address] Camilla Nava MD [facility] [place] [address] documented as of this encounter Procedures Procedure Name Priority Date/Time Associated Diagnosis Comments HEPATIC FUNCTION PANEL Routine 2012 1:07 PM EST Autoimmune hepatitis documented in this encounter Results * (ABNORMAL) Hepatic Function Panel (2012 1:07 PM EST) Protein, Total 7.6 6.4 - 8.3 gm/dL CERNER MILLENNIUM Albumin 4.8 3.2 - 5.2 gm/dL CERNER MILLENNIUM Aspartate Aminotransferase 34 0 - 39 unit/L CERNER MILLENNIUM Alanine Aminotransferase 64(H) 0 - 55 unit/L CERNER MILLENNIUM Alkaline Phosphatase 99 40 - 120 unit/L CERNER MILLENNIUM Bilirubin, Total 0.4 0.2 - 1.3 mg/dL CERNER MILLENNIUM Bilirubin, Direct 0.1 0.0 - 0.3 mg/dL CERNER MILLENNIUM Blood specimen (specimen) 2012 1:07 PM EST 2012 1:10 PM EST Narrative Resulting Agency Comment Spec In Lab Camilla Nava MD CHEMISTRY ORDERABLES CERNER MILLJEFFREYIUM documented in this encounter Visit Diagnoses Diagnosis Autoimmune hepatitis documented in this encounter Care Teams Technologist Infectious Disease Relationship Specialty Start Date End Date Yash Laguna MD PCP - General 03/17/10 02/14/14 documented as of this encounter
--- OUTSIDE RECORDS SUMMARY | 2024-02-12 14:20 | XMS_ITS | Encounter Summary ---
Author Organization [facility] [place] [address] Care Team Providers Care Navy Material Inspector Name Role Phone Yash Laguna MD Primary Care Provider Mack mittal Encounter Details Date Type Department Care Team (Latest Contact Info) Description 07/24/2010 4:42 PM EDT - 07/24/2010 11:59 PM EDT Hospital [place] [phone] Camilla Nava MD [facility] [place] [address] Discharge Disposition: Home Social History Tobacco Use [...] EDT Clinical Support Primary Care at [address] [phone] 03/12/2024 8:50 AM EST Appointment MRI at [facility] [place] [address] [facility] [place] [address] 03/20/2024 8:00 AM EST Office Visit [place] [phone] [facility] [place] [address] documented as of this encounter Procedures Procedure Name Priority Date/Time Associated Diagnosis Comments SEDIMENTATION RATE Routine 07/24/2010 4: 49 PM EDT PROTEIN ELECTROPHORESIS, SERUM Routine 07/24/2010 4:49 PM EDT LIPASE Routine 07/24/2010 4:49 PM EDT GAMMA GT Routine 07/24/2010 4:49 PM EDT AMYLASE Routine 07/24/2010 4:49 PM EDT HEPATIC FUNCTION PANEL Routine 1 4:49 PM EDT documented in this encounter Results * (ABNORMAL) PROTEIN ELECTROPHORESIS, SERUM (07/24/2010 4:49 PM EDT) Total Prot Electrophoresis 7.6 6.1 - 8.0 gm/dL CERNER MILLENNIUM Albumin Electrophoresis 4.77 3.60 - 6.00 gm/dL CERNER MILLENNIUM Alpha 1 Globulin 0.19 0.10 - 0.30 gm/dL CERNER MILLENNIUM Alpha 2 Globulin 0.65 0.40 - 0.90 gm/dL CERNER MILLENNIUM Beta Globulin 0.61 0.50 - 1.00 gm/dL CERNER MILLENNIUM Gamma Globulin 1.38(H) 0.50 - 1.30 gm/dL CERNER MILLENNIUM M1 Band None Detected None Detected gm/dL CERNER MILLENNIUM Scan See Note CERNER MILLENNIUM Comment: Please see scanned report in Chart Review under the Non-DH Laboratory Heading. Corrected from See Note on 07/27/10 15:37:16 EDT by Nat Lowe Blood specimen (specimen) 07/24/2010 4:49 PM EDT 07/24/2010 4:52 PM EDT Camilla Nava MD CHEMISTRY ORDERABLES Performing Organization Address [facility] de Phone Number [facility] * SEDIMENTATION RATE (07/24/2010 4:49 PM EDT) Sedimentation Rate Automated 4 0 - 15 mm/hr [facility] Blood specimen (specimen) 07/24/2010 4:49 PM EDT 07/24/2010 4:52 PM EDT Camilla Nava MD HEMATOLOGY ORDERABLE S Performing Organization Address [facility] de Phone Number [facility] * LIPASE (07/24/2010 4:49 PM EDT) Lipase 55 0 - 60 unit/L [facility] Blood specimen (specimen) 07/24/2010 4:49 PM EDT 07/24/2010 4:52 PM EDT Camilla Nava MD CHEMISTRY ORDERABLES Performing Organization Address [facility] de Phone Number [facility] * AMYLASE (07/24/2010 4:49 PM EDT) Amylase 69 28 - 100 unit/L [facility] Blood specimen (specimen) 07/24/2010 4:49 PM EDT 07/24/2010 4:52 PM EDT Camilla Nava MD CHEMISTRY ORDERABLES Performing Organization Address [facility] de Phone Number [facility] * (ABNORMAL) GAMMA GT (07/24/2010 4:49 PM EDT) Gamma Glutamyl Transferase 187(H) 8 - 61 unit/L CERNER MILLENNIUM Blood specimen (specimen) 07/24/2010 4:49 PM EDT 07/24/2010 4:52 PM EDT Camilla Nava MD CHEMISTRY ORDERABLES Performing Organization Address City/[facility] Co de Phone Number CERNER MILLENNIUM * (ABNORMAL) HEPATIC FUNCTION PANEL (07/24/2010 4:49 PM EDT) Protein, Total 7.6 6.4 - 8.3 gm/dL CERNER MILLENNIUM Albumin 4.5 3.2 - 5.2 gm/dL CERNER MILLENNIUM Aspartate Aminotransferase 33 0 - 39 unit/L CERNER MILLENNIUM Alanine Aminotransferase 55 0 - 55 unit/L CERNER MILLENNIUM Alkaline Phosphatase 123(H) 40 - 120 unit/L CERNER MILLENNIUM Bilirubin, Total 0.3 0.2 - 1.3 mg/dL CERNER MILLENNIUM Bilirubin, Direct 0.1 0.0 - 0.3 mg/dL CERNER MILLENNIUM Blood specimen (specimen) 07/24/2010 4:49 PM EDT 07/24/2010 4:52 PM EDT Camilla Nava MD CHEMISTRY ORDERABLES Performing Organization Address City/[facility]/ZIP Co de Phone Number CERNER MILLENNIUM documented in this encounter Visit Diagnoses Not on filedocumented in this encounter Care Teams Navy Material Inspector Relationship Specialty Start Date End Date Yash Laguna MD PCP - General 03/17/10 02/14/14 documented as of this encounter
--- OUTSIDE RECORDS SUMMARY | 2024-02-12 14:20 | XMS_ITS | Encounter Summary ---
Author Organization [facility] [place] [address] Care Team Providers Care Owner Operator Tanker Truck Driver Name Role Phone Kalen Laguna MD Primary Care Provider Mack mittal Reason for Visit * Reason Comments Follow-up Encounter Details Date Type Department Care Team (Late st Contact Info) Description 02/15/2012 4:30 PM EDT Follow-[place] [phone] Camilla Longoria MD [facility] [place] [address] Ulcerative colitis (Primary Dx); Autoimmune hepatitis Discharge Disposition: Home Social History [...] Sign Reading Time Taken Comments Blood Pressure 132/77 02/15/2012 4:38 PM EDT Pulse 78 02/15/2012 4:38 PM EDT Temperature - - Respiratory Rate - - Oxygen Saturation - - Inhaled Oxygen Concentration - - Weight 83 kg (183 lb) 02/15/2012 4:38 PM EDT Height 182.9 cm (6') 02/15/2012 4:38 PM EDT Body Mass Index 24.82 02/15/2012 4:38 PM EDT documented in this encounter Progress Notes * Camilla Longoria MD - 02/15/2012 5:25 PM EDT Gastoenterology & Hepatology Follow Up [...] rise treated with increase in azathioprine to 75mg; lft's normal since then Imuran decreased to 50mg/day Feb 24, 2012 2. Ulcerative colitis quiescent but was likely pancolitis diagnosed 1994, 1 major flare 2000 treated with prednisone maintained on asacol 1600mg bid folic acid aza (for AIH) last colonoscopy 2008 normal; biopsies showed inactive chronic colitis, no dysplasia Medications: Outpatient prescriptions marked as taking for the 02/15/12 encounter (Follow-Up) with CAMILLA LONGORIA Medication Sig Dispense Refill ??? mesalamine (ASACOL) 400 mg EC tablet Take 4 tablets by mouth 2 times daily. 720 tablet 3 ??? azaTHIOprine (IMURAN) 50 mg tablet Take 1.5 tablets by mouth daily. 135 tablet 3 ??? folic acid (FOLVITE) 1 mg tablet Take 1 tablet by mouth daily. 90 tablet 3 ADR/ALLERGIES: Allergies Allergen Reactions ??? Sulfa (Sulfonamide Antibiotics) Rash Interval History: Mahamed Dale is a 31 y.o. male who presents for follow up of autoimmune hepatitis. He is doing ok. He has loose stools most days, no diarrhea or blood. Weight is stable. He denies fatigue. He wonders about decreasing azathioprine back down to 50mg. VITAL SIGNS BP 132/77 Pulse 78 Ht 182.9 cm (6') Wt 83.008 kg (183 lb) BMI 24.82 kg/m2 Physical Exam: appears well, in no distress. Assessment/Plan: Autoimmune hepatitis- -continue azathioprine at 75mg/day -we can decrease to 50mg and check lft's q one month for 6 months- he is going to wait on this tillhe checks his health plan Colitis- -stable -colonoscopy next week for surveillance -continue aza and asacol Greater than 25 minutes of this 30minute visit was spent in counseling and discussion. Camilla Longoria MD Section of Gastroenterology & Hepatology [address] [place] [id number] Copy: KALEN LAGUNA MD documented in this encounter Plan of Treatment Upcoming Encounters Date Type Department Care Team (Late st Contact Info) Description 02/13/2024 1:00 PM EDT Clinical Support Primary Care at [address] [phone] 03/12/2024 8:50 AM [place] [address] Camilla Longoria MD [facility] [place] [address] 03/20/2024 8:00 AM EST Office Visit [place] [address] Camilla Longoria MD [facility] [place] [address] documented as of this encounter Visit Diagnoses Diagnosis Ulcerative colitis- Primary Ulcerative colitis, unspecified Autoimmune hepatitis documented in this encounter Care Teams Owner Operator Tanker Truck Driver Relationship Specialty Start Date End Date Kalen Laguna MD PCP - General 03/17/10 02/14/14 documented as of this encounter
--- OUTSIDE RECORDS SUMMARY | 2024-02-12 14:20 | XMS_ITS | Encounter Summary ---
Author Organization [facility] [place] [address] Care Team Providers Care Digital Forensics Investigator Name Role Phone Yash Laguna MD Primary Care Provider Mack mittal Encounter Details Date Type Department Care Team (Latest Contact Info) Description 08/26/2011 4:47 PM EDT - 08/26/2011 11:59 PM EDT [place] [address] Camilla Nava MD [facility] [place] [place] [address] Autoimmune hepatitis Discharge Disposition: Home Social History [...] EDT Clinical Support Primary Care at [address] [phone] 03/12/2024 8:50 AM [place] [phone] Camilla Nava MD [facility] [place] [address] 03/20/2024 8:00 AM EST [facility] [place] [address] Camilla Nava MD [facility] [place] [address] documented as of this encounter Procedures Procedure Name Priority Date/Time Associated Diagnosis Comments HEPATIC FUNCTION PANEL Routine 08/26/2011 5:04 PM EDT Autoimmune hepatitis documented in this encounter Results * Hepatic Function Panel (08/26/2011 5:04 PM EDT) Protein, Total 7.6 6.4 - 8.3 gm/dL [facility] Albumin 4.7 3.2 - 5.2 gm/dL [facility] Aspartate Aminotransferase 21 0 - 39 unit/L [facility] MILLENNI[facility] Alanine Aminotransferase 29 0 - 55 unit/L [facility] MILLENNI[facility] Alkaline Phosphatase 82 40 - 120 unit/L [facility]NI[facility] Bilirubin, Total 0.3 0.2 - 1.3 mg/dL [facility] Bilirubin, Direct 0.1 0.0 - 0.3 mg/dL [facility]ILL[facility]NI[facility] Blood specimen (specimen) 08/26/2011 5:04 PM EDT 08/26/2011 5:16 PM EDT Narrative Resulting Agency Comment Spec In Lab Camilla Nava MD CHEMISTRY ORDERABLES [facility] documented in this encounter Visit Diagnoses Diagnosis Autoimmune hepatitis documented in this encounter Care Teams Digital Forensics Investigator Relationship Specialty Start Date End Date Yash Laguna MD PCP - General 03/17/10 02/14/14 documented as of this encounter
--- OUTSIDE RECORDS SUMMARY | 2024-02-12 14:20 | XMS_ITS | Encounter Summary ---
Author Organization [facility] [place]jel[place] [address] Care Team Providers Care Health Information Technologist Name Role Phone Yash Laguna MD Primary Care Provider Mack mittal Encounter Details Date Type Department Care Team (Latest Contact Info) Description 04/27/2012 5:15 PM EST - 04/27/2012 11:59 PM EST [place] [phone] Camilla Nava MD [facility] [place] [id number] Autoimmune hepatitis Discharge Disposition: Home Social History [...] EDT Clinical Support Primary Care at [address] [phone] 03/12/2024 8:50 AM [place] [phone] Camilla Nava MD [facility] [place] [address] 03/20/2024 8:00 AM EST Office [place] [phone] Camilla Nava MD [facility] [place] [address] documented as of this encounter Procedures Procedure Name Priority Date/Time Associated Diagnosis Comments HEPATIC FUNCTION PANEL Routine 04/27/2012 5:22 PM EST Autoimmune hepatitis documented in this encounter Results * Hepatic Function Panel (04/27/2012 5:22 PM EST) Protein, Total 7.8 6.4 - 8.3 gm/dL [facility] MILLENNIUM Albumin 4.9 3.2 - 5.2 gm/dL [facility] MILLENNIUM Aspartate Aminotransferase 27 0 - 39 unit/L [facility] MILLENNIUM Alanine Aminotransferase 39 0 - 55 unit/L [facility]ERNER MILLENNIUM Alkaline Phosphatase 84 40 - 120 unit/L [facility] MILLENNIUM Bilirubin, Total 0.4 0.2 - 1.3 mg/dL [facility] MILLENNIUM Bilirubin, Direct 0.1 0.0 - 0.3 mg/dL [facility] MILLENNIUM Blood specimen (specimen) 04/27/2012 5:22 PM EST 04/27/2012 5:29 PM EST Narrative Resulting Agency Comment Spec In Lab Camilla Nava MD CHEMISTRY ORDERABLES [facility] documented in this encounter Visit Diagnoses Diagnosis Autoimmune hepatitis documented in this encounter Care Teams Health Information Technologist Relationship Specialty Start Date End Date Yash Laguna MD PCP - General 03/17/10 02/14/14 documented as of this encounter
--- NOTE | 2024-02-12 14:30 | DI.RAD_ITS ---
Exam(s) XR THUMB LT EXAM: XR THUMB LT CLINICAL HISTORY: dislocation v fracture?. TECHNIQUE: 2D digital imaging was performed of the left thumb. Three views were obtained. AP, late ral and oblique views were obtained. COMPARISON: No exams were available for comparison FINDINGS: BONES: No acute fracture is present. No bony destructive lesion is seen. JOINTS: There is a posterior dislocation of the thumb at the interphalangeal joint. SOFT TISSUE: Soft tissue swelling is present. IMPRESSION: Dorsal dislocation of the IP joint of the left thumb. DATA REPOSITORY: RADIATION DOSE DELIVERED:
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
[2024-02-12] MEDS: Lidocaine 1% Pres-Free 5 ML VIAL (15:41)
== END 2024-02-12 16:21 | disposition home or self-care (01) ==
PROVIDERS: Emergency Provider Emergency Medicine
DX: S63.125A Dislocation of interphalangeal joint of left thumb, initial encounter (principal); S50.311A Abrasion of right elbow, initial encounter; S80.212A Abrasion, left knee, initial encounter; V18.4XXA Pedal cycle driver injured in noncollision transport accident in traffic accident, initial encounter; Y92.482 Bike path as the place of occurrence of the external cause; Y93.55 Activity, bike riding
CPT/HCPCS: 99283; 73140; J2003